=== PATIENT | female | born 1945 | race Caucasian/White ===

== ENCOUNTER 2016-07-31 05:05 | Day surgery (SDC) | payer OTHER ==
[2016-07-29 12:05] VITALS: BMI 24.0
[2016-07-31] MEDS ORDERED: DEXAMETHASONE SOD PHOSPHATE 4 MG/1 ML VIAL ONE (07:52)
[2016-07-31] MEDS ORDERED: MIDAZOLAM HCL 2 MG/2 ML SINGLE DOSE VIAL ONE (07:53)
[2016-07-31] MEDS ORDERED: PROPOFOL 20 ML ONE (07:53)
[2016-07-31] MEDS ORDERED: ACETAMINOPHEN 325 MG TABLET (FP) PO PRN (08:12)
[2016-07-31] MEDS ORDERED: ONDANSETRON 4 MG/2 ML VIAL IVPUSH PRN (08:12)
[2016-07-31] MEDS ORDERED: LACTATED RINGERS SOLUTION 1,000 ML IV SCH (08:15)
--- NOTE | 2016-07-31 08:17 | HP ---
History & Physical Update - History History: No Change - Physical Physical: No Change - Assessment Assessment: No Change - Plan Plan: No Change
[2016-07-31] MEDS ORDERED: IBUPROFEN 800 MG/8 ML IJ IVPB PRN (08:21)
[2016-07-31] MEDS ORDERED: CLINDAMYCIN PHOSPHATE 600 MG/4 ML VIAL ONE (08:30)
[2016-07-31] MEDS ORDERED: DEXTROSE 5%-0.45% SALINE 1,000 ML IV SCH (08:30)
[2016-07-31] MEDS ORDERED: CLINDAMYCIN 600 MG PREMIX BAG IVPB ONE (08:31)
[2016-07-31 10:19] VITALS: TEMP 97.7
[2016-07-31 12:29] VITALS: BP 152/78; PULSE 75
--- NOTE | 2016-09-24 13:59 | OP ---
DATE OF OPERATION: 07/31/2016 PREOPERATIVE DIAGNOSIS: Right hydronephrosis. POSTOPERATIVE DIAGNOSIS: Right hydronephrosis. PROCEDURE: Cystoscopy, right retrograde pyelogram, right ureteral stent placement. ANESTHESIA: General. SURGEON: Isaak Mead MD FINDINGS: Right hydronephrosis. ESTIMATED BLOOD LOSS: Minimal. DRAINS: A 6 x 24 double-J ureteral stent. PREOPERATIVE INDICATIONS: The patient is 71-year-old woman who has a history of lupus with large retroperitoneal adenopathy. She has resultant right hydronephrosis. She comes to the OR today for stent placement. DESCRIPTION OF PROCEDURE: The patient is brought to the OR, placed on the table in supine position, given general anesthesia and placed in the modified lithotomy position. The groin was prepped and draped sterilely. Timeout was performed. Cystoscopy was performed. The urethra was normal. The bladder appeared to be unremarkable. The right ureteral orifice was visualized. A wire was passed up into the right kidney, over that an open-ended catheter. Retrograde pyelogram was performed which did reveal right-sided hydronephrosis. A 6 x 22 double-J ureteral stent was placed, with 1 loop seen in the kidney and 1 loop left in the bladder. The bladder was emptied. The patient was woken up. ISAAK MEAD M.D. [id number]
== END 2016-07-31 12:32 | disposition home or self-care (01) ==
LOC: JASU-SURG 05:05
PROVIDERS: ATTEND Urology
PROC: 0T768DZ Dilation of Right Ureter with Intraluminal Device, Via Natural or Artificial Opening Endoscopic (ICD-10-PCS; principal; 2016-07-31 08:00)
PROC: BT1DYZZ Fluoroscopy of Right Kidney, Ureter and Bladder using Other Contrast (ICD-10-PCS; 2016-07-31 08:00)
DX: N13.30 Unspecified hydronephrosis (principal); M32.14 Glomerular disease in systemic lupus erythematosus; R59.0 Localized enlarged lymph nodes
CPT/HCPCS: 76000-TC; 94760

== ENCOUNTER 2016-09-07 14:32 | Emergency (ER) | payer OTHER ==
[2016-09-07 14:39] VITALS: BMI 23.0
--- NOTE | 2016-09-07 15:15 | PDOC ---
History of Present Illness - General History Source: Patient, Old Records Exam Limitations: No Limitations - History of Present Illness Initial Comments: 09/07/16 14:48 The patient is a 71-year-old woman, with a significant past medical history of lupus, hypertension, hypercholesterolemia, coronary artery disease status post cardiac catherization, deep venous thrombosis, gastroesophageal reflux disease and steroid induced diabetes mellitus who presents to the emergency department via EMS for further evaluation of hematuria. Patient states she has a renal stent placed over her right kidney on July of this year. She states that since the procedure, she has been experiencing intermittent sharp pains at the surgical site. She admits that Dr. Mead wanted to start her on Percocet , but she refused. She saw her PMD, Dr. Sanchez last week, for which she left a urine sample. She received a call [address] Sanchez, stating that she had blood in her urine, although she never complained of hematuria. The next day , her pain worsened, as she started to experience right lower back pain, radiating to her suprapubic region. She states that she had noted blood in the toilet. No clots. She reports associated symptoms of urinary urgency, but otherwise denies dysuria, foul smelling urine, urinary hesitancy/frequency, fevers, cough, chills, shortness of breath, chest pain, lightheadedness, dizziness, nausea, vomiting, diarrhea. Allergies: Codeine. Penicillin. Past Surgical History: Right below the knee amputation (1996). Left leg stent placement (October 2010). Kidney stent placement (July 2016) Social History: No tobacco EtOH and recreational drug use. Primary Care Physician: Dr. Addison Sanchez [phone] Urologist: Dr. Isaak Mead [phone] Oncologist/Renal Medicine Specialist: Dr. Kayleen Carmichael [phone] <Bella Rodriguez - Last Filed: 09/07/16 16:40> <David Lira - Last Filed: 09/09/16 07:45> - General Chief Complaint: Hematuria Stated Complaint: BLEEDING FROM STINT/PAIN Time Seen by Provider: 09/07/16 14:48 Past History <Bella Rodriguez - Last Filed: 09/07/16 16:40> - Past Medical History Anemia: Yes (chronic) Asthma: No Cancer: No Cardiac Disorders: Yes (chest paiN, cardiac cath done) CVA: No COPD: No CHF: No DVT: Yes (by history) Dementia: No Diabetes: No Dialysis: No GI Disorders: Yes (GERD) Disorders: No HTN: Yes Hypercholesterolemia: Yes Kidney Stones: Yes Liver Disease: No Psychiatric Problems: No Seizures: No Thyroid Disease: No Other medical history: LUPUS. - Surgical History Abdominal Surgery: Yes (10/2015 mass removed-negative) Appendectomy: No Cardiac Surgery: Yes (STENTS OCTOBER 2010 IN LEFT LEG) Cholecystectomy: No Lung Surgery: No Neurologic Surgery: No Orthopedic Surgery: Yes ([place] BUENROSTRO (1996)) - Psycho/Social/Smoking Cessation Hx Anxiety: No Suicidal Ideation: No Smoking Status: No Smoking History: Former smoker Have you smoked in the past 12 months: No Number of Cigarettes Smoked Daily: 0 If you are a former smoker, when did you quit?: 1979 Information on smoking cessation initiated: No Hx Alcohol Use: No Drug/Substance Use Hx: No Substance Use Type: None Hx Substance Use Treatment: No <David Lira - Last Filed: 09/09/16 07:45> - Past Medical History Allergies/Adverse Reactions: Allergies Allergy/AdvReac Type Severity Reaction Status Date / Time codeine [Codeine] Allergy Hives Verified 09/07/16 14:36 Penicillins Allergy Hives Verified 09/07/16 14:36 lactose AdvReac Verified 09/07/16 14:36 Home Medications: Ambulatory Orders Gabapentin [Neurontin -] 600 mg PO TID 10/20/15 Hydroxychloroquine Sulfate [Plaquenil] 200 mg PO DAILY 10/20/15 Nifedipine [Procardia Xl] 60 mg PO BID 10/20/15 Prednisone [Deltasone -] 5 mg PO ASDIR 10/20/15 Famotidine [Pepcid] 20 mg PO DAILY 10/31/15 Labetalol HCl [Normodyne -] 200 mg PO BID 10/31/15 Acetaminophen [Tylenol .Extra-Strength -] 1,000 mg PO Q6H PRN 11/20/15 Ca/D3/Mag#11/Zinc/[employer]/[place]/Bor [Caltrate 600+D Plus Tablet] 1 each PO DAILY Iron,Carbonyl [Feosol] 65 mg PO DAILY 11/20/15 Vitamin B Complex [B Complex # 1] 1 each PO DAILY 11/20/15 Levofloxacin [Levaquin -] 500 mg PO DAILY #7 tablet 09/07/16 Review of Systems - Review of Systems Comments:: 09/07/16 14:48 CONSTITUTIONAL: No reported: Fever, Chills, Diaphoresis, Generalized Weakness, Malaise, Loss of Appetite HEENT: No reported: Rhinorrhea, Nasal Congestion, Throat Pain, Throat Swelling, Difficulty Swallowing, Mouth Swelling, Ear Pain, Eye Pain, Visual Changes CARDIOVASCULAR: No reported: Chest Pain, Syncope, Palpitations, Irregular Heart Rate, Lightheadedness, Peripheral Edema RESPIRATORY: No reported: Cough, Shortness of Breath, SOB with Exertion, Orthopnea, Wheezing , Stridor, Hemoptysis GASTROINTESTINAL: Reported: Abdominal Pain. No reported: Abdominal Distension, Nausea, Vomiting, Diarrhea, Constipation, Melena, Hematochezia GENITOURINARY: Reported: Urinary Urgency. Hematuria. No reported: Dysuria, Frequency, Hesitancy , Flank Pain, Genital Pain MUSCULOSKELETAL: Reported: Lower Back Pain. No reported: Myalgia, Arthralgia, Joint Swelling, Neck Pain SKIN: No reported: Rash, Itching, Pallor HEMEATOLOGIC/IMMUNOLOGIC: No reported: Easy Bleeding, Easy Bruising, Lymphadenopathy, Frequent infections ENDOCRINE: No reported: Unexplained Weight Gain, Unexplained Weight Loss, Heat Intolerance , Cold Intolerance NEUROLOGIC: No reported: Headache, Focal Weakness, Paresthesias, Vertigo, Lightheadedness, Unsteady Gait, Seizure, Mental Status Changes, Incontinence PSYCHIATRIC: No reported: Anxiety, Depression <Bella Rodriguez - Last Filed: 09/07/16 16:40> *Physical Exam - Vital Signs Last Vital Signs Temp Pulse Resp BP Pulse Ox 99.5 F 78 18 118/94 99 09/07/16 14:35 09/07/16 14:35 09/07/16 14:35 09/07/16 14:35 09/07/16 14:35 - Physical Exam Comments: 09/07/16 14:48 GENERAL: The patient is awake, alert, and fully oriented, Nontoxic - in no acute distress. HEAD: Normocephalic, atraumatic. EYES: extraocular movements intact, sclera anicteric, conjunctiva clear. ENT: Normal voice, Moist mucous membranes. NECK: Normal range of motion, supple LUNGS: Breath sounds equal, clear to auscultation bilaterally. No wheezes, no rhonchi, no rales. HEART: Regular rate and rhythm, without murmur, rub or gallop. ABDOMEN: Soft,mild suprapubic tenderness to palpation. normoactive bowel sounds. No guarding, no rebound. No CVA tenderness EXTREMITIES: Right BKA. No edema. NEUROLOGICAL: No facial assymetry, Normal speech, PSYCH: Normal mood, normal affect. SKIN: Warm, Dry, normal turgor <Bella Rodriguez - Last Filed: 09/07/16 16:40> - Vital Signs Last Vital Signs Temp Pulse Resp BP Pulse Ox 99.5 F 78 18 118/94 99 09/07/16 14:35 09/07/16 14:35 09/07/16 14:35 09/07/16 14:35 09/07/16 14:35 <David Lira - Last Filed: 09/09/16 07:45> ED Treatment Course - LABORATORY CBC & Chemistry Diagram: 09/07/16 15:32 09/07/16 14:40 - ADDITIONAL ORDERS Additional order review: Laboratory Results 09/07/16 14:40 Sodium 141 Potassium 3.6 Chloride 105 Carbon Dioxide 26 Anion Gap 10 BUN 11 D Creatinine 1.2 H Creat Clearance w eGFR 44.41 Random Glucose 87 D Calcium 9.1 Total Bilirubin 0.5 D AST 31 D ALT 32 D Alkaline Phosphatase 86 Total Protein 7.5 Albumin 3.5 09/07/16 15:32 RBC 3.93 MCV 89.5 MCHC 33.0 RDW 15.6 MPV 8.5 Neutrophils % 40.7 L D Lymphocytes % 44.2 H D Monocytes % 10.2 Eosinophils % 4.1 D Basophils % 0.8 <Bella Rodriguez - Last Filed: 09/07/16 16:40> - LABORATORY CBC & Chemistry Diagram: 09/07/16 15:32 09/07/16 14:40 - RADIOLOGY Radiology Studies Ordered: Category Date Time Status KIDNEY / RENAL US [US] Stat Ultrasound 09/07/16 15:15 Ordered <David Lira - Last Filed: 09/09/16 07:45> Medical Decision Making - Medical Decision Making 09/07/16 15:17 71y F hxof lupus on steroids, kidney stones s/p stenting by dr. adan, dvt (not currently on a/c), htn, presents with onset of R flank pain radiating to anterior abdomen along with urgency. no associated fever/chills, n/v, cp, sob , dysuria. on exam pt apppears well but does have some lower abdominal tenderness. consider obstructed /displcaed stent, uti, appendicits will obtain ua to r/o infection will obtain basic labs will obtain renal US to r/o hydronephrosis if persistent pain consider Ct A portion of this note was documented by scribe services under my direction. I have reviewed the details of the note, within reason, and agree with the documentation with the following case summary and management plan written by me 09/07/16 16:53 pts labs reviewed no anemia noted cr noted 1.2, but seems approx bsaeline awaiting UA and US results will sign th ept out to dr. osman to fu with results <David Lira - Last Filed: 09/09/16 07:45> *DC/Admit/Observation/Transfer - Attestations Scribe Attestion: 09/07/16 14:48 Documentation prepared by Bella Rodriguez, acting as hospital medical assistant for David Lira MD. <Bella Rodriguez - Last Filed: 09/07/16 16:40> <David Lira - Last Filed: 09/09/16 07:45> Diagnosis at time of Disposition: Urinary tract infection, Hematuria - Discharge Dispostion Disposition: HOME Condition at time of disposition: Stable - Prescriptions Prescriptions: Levofloxacin [Levaquin -] 500 mg PO DAILY #7 tablet - Referrals Referrals: Addison Sanchez MD [Primary Care Provider] - - Patient Instructions Printed Discharge Instructions: DI for Urinary Tract Infection (UTI), DI for Hematuria
[2016-09-07 15:54] LABS: BASOPHIL 0.8 % (0-2.0); EOSINOPHIL 4.1 % (0-4.5); MCH 29.5 pg (25.7-33.7); MEAN CELL VOLUME 89.5 fl (80-96); MEAN PLT VOLUME 8.5 fl (7.5-11.1); NEUTROPHILS 40.7 % (42.8-82.8); PLATELET COUNT 199 K/MM3 (134-434); RDW 15.6 % (11.6-15.6); WHITE BLOOD COUNT 8.7 K/mm3 (4.0-10.0)
[2016-09-07 16:09] LABS: INR 1.12 (0.82-1.09); PROTHROMBIN TIME (PATIENT) 12.3 SEC (9.98-11.88)
[2016-09-07 16:19] LABS: ALBUMIN 3.5 g/dl (3.4-5.0); BILIRUBIN,TOTAL 0.5 mg/dL (0.2-1.0); CALCIUM 9.1 mg/dL (8.5-10.1); COCKROFT - GAULT 36.856; CREATININE 1.2 mg/dL (0.55-1.02); TOT PROT 7.5 g/dl (6.4-8.2)
[2016-09-07 17:21] LABS: URINE APPEARANCE CLOUDY; URINE BILIRUBIN NEGATIVE (NEGATIVE); URINE COLOR RED; URINE GLUCOSE (UA) NEGATIVE (NEGATIVE); URINE KETONE NEGATIVE (NEGATIVE); URINE NITRITE NEGATIVE (NEGATIVE); URINE UROBILINOGEN NEGATIVE E.U./dl (0.2-1.0)
[2016-09-07 17:22] LABS: URINE BLOOD 3+ (NEGATIVE); URINE LEUK ESTERASE 1+ (NEGATIVE); URINE PROTEIN 2+ (NEGATIVE)
[2016-09-07 17:25] LABS: URINE MUCUS MODERATE; URINE RBC 6069 /hpf (0-3); URINE WBC 531 /hpf (3-5)
[2016-09-07 18:52] VITALS: BP 130/86; PULSE 79; TEMP 99
[2016-09-07] MEDS ORDERED: LEVOFLOXACIN 500 MG IVPB 100 ML IVPB ONE ×2 (18:57→19:01)
[2016-09-07 19:32] LABS: PLATELET ESTIMATE ADEQUATE (NORMAL)
--- NOTE | 2016-09-07 20:59 | PDOC ---
*Physical Exam - Vital Signs Last Vital Signs Temp Pulse Resp BP Pulse Ox 99 F 79 16 130/86 100 09/07/16 18:51 09/07/16 18:51 09/07/16 18:51 09/07/16 18:51 09/07/16 18:51 - Physical Exam Comments: 09/07/16 20:55 Patient endorsed to me by Dr. Lira. Patient is 71-year-old female with history of lupus and nephrolithiasis who underwent ureteral stenting in July 2016 for nephrolithiasis and right hydronephrosis who presented with suprapubic pressure radiating to the back and gross hematuria. In the ER, patient is awake and alert , well-appearing, afebrile, with normal and stable vital signs. CBC reveals no evidence of leukocytosis. CMP reveals unchanged renal function. Urinalysis reveals more than 6000 RBCs per high-power field and more than 500 WBCs. Patient is also leukocyte esterase positive. Urine cultures been obtained. Renal ultrasound reveals no evidence of right sided hydronephrosis. KUB reveals intact ureteral stent. I discussed the case with Dr. Mcguire of urology. He agrees with plan of discharge with outpatient [facility] with prompt follow-up and 72-96 hours with urology. I explained the plan of care with the patient and she expressed understanding. ED Treatment Course - LABORATORY CBC & Chemistry Diagram: 09/07/16 15:32 09/07/16 14:40 - ADDITIONAL ORDERS Additional order review: Laboratory Results 09/07/16 09/07/16 09/07/16 17:10 14:40 14:40 INR 1.12 Sodium 141 Potassium 3.6 Chloride 105 Carbon Dioxide 26 Anion Gap 10 BUN 11 D Creatinine 1.2 H Creat Clearance w eGFR 44.41 Random Glucose 87 D Calcium 9.1 Total Bilirubin 0.5 D AST 31 D ALT 32 D Alkaline Phosphatase 86 Total Protein 7.5 Albumin 3.5 Urine Color Red Urine Appearance Cloudy Urine pH 6.0 Urine Protein 2+ H Urine Glucose (UA) Negative Urine Ketones Negative Urine Blood 3+ H Urine Nitrite Negative Urine Bilirubin Negative Urine Urobilinogen Negative Ur Leukocyte Esterase 1+ H Urine RBC 6069 Urine WBC 531 Urine Mucus Moderate 09/07/16 15:32 RBC 3.93 MCV 89.5 MCHC 33.0 RDW 15.6 MPV 8.5 Neutrophils % 40.7 L D Lymphocytes % 44.2 H D Monocytes % 10.2 Eosinophils % 4.1 D Basophils % 0.8 - Medications Given in the ED: ED Medications Discontinued Medications Generic Name Dose Route Start Last Admin Trade Name Rigo PRN Reason Stop Dose Admin Levofloxacin 100 mls @ 100 mls/hr 09/07/16 18:57 09/07/16 19:03 Levaquin 500 Mg Premixed Ivpb - IVPB 09/07/16 19:56 100 mls/hr ONCE ONE Administration *DC/Admit/Observation/Transfer Diagnosis at time of Disposition: Hematuria Urinary tract infection Qualifiers: Urinary tract infection type: acute cystitis Hematuria presence: with hematuria Qualified Code(s): N30.01 - Acute cystitis with hematuria - Discharge Dispostion Disposition: HOME Condition at time of disposition: Stable - Referrals Referrals: Addison Sanchez MD [Primary Care Provider] - - Patient Instructions Printed Discharge Instructions: DI for Urinary Tract Infection (UTI), DI for Hematuria - Post Discharge Activity
== END 2016-09-07 21:36 | disposition home or self-care (01) ==
LOC: JER 14:32 → SUPCPDRO 14:32 → JER 21:36
DX: N30.01 Acute cystitis with hematuria (principal); Z87.442 Personal history of urinary calculi; I25.10 Atherosclerotic heart disease of native coronary artery without angina pectoris; Z98.61 Coronary angioplasty status; I10 Essential (primary) hypertension; E78.00 Pure hypercholesterolemia, unspecified; K21.9 Gastro-esophageal reflux disease without esophagitis; E09.9 Drug or chemical induced diabetes mellitus without complications; T38.0X5A Adverse effect of glucocorticoids and synthetic analogues, initial encounter; Z89.511 Acquired absence of right leg below knee
CPT/HCPCS: 36415; 74000-TC; 76775-TC; 80053; 81003; 81015; 85025; 85610; 87086; 96365; 99283-25

== ENCOUNTER 2016-12-11 06:08 | Day surgery (SDC) | payer OTHER ==
[2016-11-25 10:22] VITALS: BMI 23.0
[2016-12-11] MEDS ORDERED: IBUPROFEN 800 MG/8 ML IJ IVPB PRN (11:31)
[2016-12-11] MEDS ORDERED: ACETAMINOPHEN 1000 MG/100 ML VIAL (NON FORMULARY) IVPB ONE (11:32)
--- NOTE | 2016-12-11 11:37 | HP ---
History & Physical Update - History History: No Change - Physical Physical: No Change - Assessment Assessment: No Change - Plan Plan: No Change
[2016-12-11] MEDS ORDERED: PROPOFOL 20 ML ONE (11:42)
[2016-12-11] MEDS ORDERED: LIDOCAINE HCL/PF 2% SDV 5ML VIAL ONE (11:42)
[2016-12-11] MEDS ORDERED: DEXTROSE 5%-0.45% SALINE 1,000 ML IV SCH (11:45)
[2016-12-11] MEDS ORDERED: CLINDAMYCIN 600 MG PREMIX BAG IVPB ONE (11:51)
--- NOTE | 2016-12-11 12:13 | OP ---
Operative Note - Note: Operative Date: 12/11/16 Pre-Operative Diagnosis: right hydronephrosis Operation: right ureteral stent exchange, retrograde pyelogram Post-Operative Diagnosis: Same as Pre-op Surgeon: Isaak Mead Anesthesiologist/BACKUP ADMINISTRATIVE COORDINATOR: Ridge Quiles Anesthesia: General Specimens Removed: stent
[2016-12-11] MEDS ORDERED: ONDANSETRON 4 MG/2 ML VIAL IVPUSH PRN (12:20)
[2016-12-11] MEDS ORDERED: PROMETHAZINE HCL 25 MG/1 ML VIAL IVPUSH PRN (12:20)
[2016-12-11] MEDS ORDERED: oxyCODONE HCL 5 MG TABLET PO PRN (12:20)
[2016-12-11 14:48] VITALS: BP 146/55; PULSE 63; TEMP 97.6
--- NOTE | 2016-12-12 08:27 | OP ---
DATE OF OPERATION: 12/11/2016 PREOPERATIVE DIAGNOSIS: Obstructive right kidney hydronephrosis. POSTOPERATIVE DIAGNOSIS: Obstructive right kidney hydronephrosis. PROCEDURE: Cystoscopy and exchange of right ureteral stent, retrograde pyelogram. ANESTHESIA: General, Ridge Quiles MD. ESTIMATED BLOOD LOSS: Minimal. SPECIMEN: Old stents. 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 She has been managed with a ureteral stent for the last 3 months, which has given her relief. Because she is going to need lifelong stenting, stent is going to be exchanged for a metal stent which has a 1-year lifespan. DESCRIPTION OF OPERATION: The patient was brought to the OR, placed on the table in the supine position, given general anesthesia and IV antibiotics, and placed in the modified lithotomy position. The groin was prepped and draped sterilely. Timeout was performed. Cystoscopy was performed. The urethra appeared to be normal. The bladder itself was unremarkable except for a right ureteral stent. This was grasped with forceps, pulled out of the urethra, and a guidewire was passed up the stent into the right kidney under fluoroscopic guidance. The stent was then removed. The wire was refed into the cystoscope. A metal stent was then placed. A catheter was placed over the indwelling wire up to the renal pelvis. The wire was removed, and a retrograde pyelogram was performed which confirmed the position and the dilation of the renal pelvis. Through this catheter, a 6 x 24 double-J metal stent was placed, 1 loop in the mid-pole calyx and 1 loop in the bladder. The scope was removed. The bladder was emptied. Fluoroscopy was performed to confirm placement. Patient was woken up. Dhiraj [id number]
--- NOTE | 2016-12-12 14:25 | PATH ---
Surgical Pathology Report Patient Name: OLEG PERERA [facility]. Rec. #: [id number] /Age/Gender: 1945 (Age: 71) / F Account: [id number] Location: [facility] Taken: 12/11/2016 Received: 12/11/2016 Reported: 12/12/2016 Physicians: Isaak Mead M.D. Specimen(s) Received OLD STENT Clinical History Hydronephrosis Final Diagnosis OLD STENT, RIGHT URETER, REPLACEMENT: STENT (GROSS EXAM). Electronically Signed Rafita Calixto M.D. Gross Description Received fresh labeled "old stent" is a 36 cm in length blue-green, coiled portion of tubing, consistent with a ureteral stent. No soft tissue is present. No sections are submitted, gross only. /12/11/2016 [facility]
== END 2016-12-11 15:06 | disposition home or self-care (01) ==
LOC: JASU-SURG 06:08
PROVIDERS: ATTEND Urology
PROC: 0T768DZ Dilation of Right Ureter with Intraluminal Device, Via Natural or Artificial Opening Endoscopic (ICD-10-PCS; principal; 2016-12-11 11:00)
DX: N13.2 Hydronephrosis with renal and ureteral calculous obstruction (principal)
CPT/HCPCS: 76000-TC; 88300-TC; 94760

== ENCOUNTER 2017-04-11 10:31 | Inpatient (IN) | payer OTHER ==
--- NOTE | 2017-04-11 11:05 | PDOC ---
History of Present Illness - General History Source: Patient Exam Limitations: No Limitations - History of Present Illness Initial Comments: 04/11/17 12:04 The patient is a 71 year old female with a significant PMH of Lupus (on plaquinil and 5mg prednisone), HTN, HLD, CAD, s/p cardiac cath, DVT, GERD, steroid induced diabetes, hx of obstructive uropathy sp ureteral stent, who presents to the emergency department with right lower quadrant pain radiating to the right lower back for the past week and chills for the past three days. The patient states the abdominal and back pain is different from her baseline. The patient reports taking two tylenols this morning for a temperature TMax 103 yesterday. The patient notes some nausea but no vomiting secondary to her RLQ pain. The patient is also complaining of foul smelling urine for the past several days and burning sensation when urinating this morning. The patient denies chest pain, shortness of breath, cough, headache and dizziness. Denies fever, chills, nausea, vomit, diarrhea and constipation. The patient was last seen at our facility for hematuria secondary to right kidney stent placement which has resolved after a stent replacement in November. Allergies: codeine, penicillins, lactose Past surgical history: Right below the knee replacement (1996), left leg stent placement (October 2010), right kidney stent replaced (November 2016) Social history: No reported alcohol, cigarette, or drug use. PCP: Dr. Marcial Urologist: Dr. Mead <Arlen Hernandez - Last Filed: 04/11/17 16:16> <David Lira - Last Filed: 04/11/17 16:31> - General Chief Complaint: Weakness Stated Complaint: FEVER Time Seen by Provider: 04/11/17 10:54 Past History <Arlen Hernandez - Last Filed: 04/11/17 16:16> - Past Medical History Anemia: Yes (chronic) Asthma: No Cancer: No Cardiac Disorders: Yes (Leg stents) CVA: No COPD: No CHF: No DVT: Yes (by history) Dementia: No Diabetes: No Dialysis: No GI Disorders: Yes (GERD) Disorders: No HTN: Yes Hypercholesterolemia: Yes Kidney Stones: Yes Liver Disease: No Psychiatric Problems: No Seizures: No Thyroid Disease: No Other medical history: LUPUS,Neuropathy, Kidney stents - Surgical History Abdominal Surgery: Yes (10/2015 mass removed-negative) Appendectomy: No Cardiac Surgery: Yes (STENTS OCTOBER 2010 IN LEFT LEG) Cholecystectomy: No Lung Surgery: No Neurologic Surgery: No Orthopedic Surgery: Yes ([place] BUENROSTRO (1996)) - Suicide/Smoking/Psychosocial Hx Smoking Status: No Smoking History: Never smoked Have you smoked in the past 12 months: No Number of Cigarettes Smoked Daily: 0 If you are a former smoker, when did you quit?: 1979 Information on smoking cessation initiated: No Hx Alcohol Use: No Drug/Substance Use Hx: No Substance Use Type: None Hx Substance Use Treatment: No <David Lira - Last Filed: 04/11/17 16:31> - Past Medical History Allergies/Adverse Reactions: Allergies Allergy/AdvReac Type Severity Reaction Status Date / Time codeine [Codeine] Allergy Hives Verified 04/11/17 10:45 Penicillins Allergy Hives Verified 04/11/17 10:45 lactose AdvReac Verified 04/11/17 10:45 Home Medications: Ambulatory Orders Gabapentin [Neurontin -] 600 mg PO TID 10/20/15 Hydroxychloroquine Sulfate [Plaquenil] 200 mg PO DAILY 10/20/15 Nifedipine [Procardia Xl] 60 mg PO DAILY 10/20/15 Prednisone [Deltasone -] 5 mg PO ASDIR 10/20/15 Labetalol HCl [Normodyne -] 200 mg PO BID 10/31/15 Acetaminophen [Tylenol .Extra-Strength -] 1,000 mg PO Q6H PRN 11/20/15 Ca/D3/Mag#11/Zinc/Baking Assistant/[place]/Bor [Caltrate 600+D Plus Tablet] 1 each PO DAILY Iron,Carbonyl [Feosol] 65 mg PO DAILY 11/20/15 Vitamin B Complex [B Complex # 1] 1 each PO DAILY 11/20/15 Review of Systems - Review of Systems Able to Perform ROS?: Yes Comments:: 04/11/17 12:06 Constitutional:(+) Chills. (+) Fever. No reported:weakness, unexplained weight loss HEENT: No reported: vision changes, congestion, sore throat Respiratory: No reported: cough, sob, hemoptysis Cardiac: No reported: chest pain, palpitations, lightheadedness, leg swelling Abd/GI: (+) RLQ pain (+) Nausea. (+) Dysuria with foul odor. No reported: vomiting, blood per rectum, melena, diarrhea : No reported: frequency, discharge Musculoskeletal: (+) Right lower back pain. No reported: neck pain, joint swelling Skin: No reported: bruising, erythema, rash Neurological: No reported: headache, numbness, focal weakness, tingling, ataxia , weakness Hematologic: No reported anemia, easy bruising, easy bleeding <Arlen Hernandez - Last Filed: 04/11/17 16:16> *Physical Exam - Vital Signs Last Vital Signs Temp Pulse Resp BP Pulse Ox 101.9 F H 89 18 152/76 98 04/11/17 11:04 04/11/17 10:41 04/11/17 10:41 04/11/17 10:41 04/11/17 10:41 <Arlen Hernandez - Last Filed: 04/11/17 16:16> - Vital Signs Last Vital Signs Temp Pulse Resp BP Pulse Ox 101.9 F H 89 18 152/76 98 04/11/17 11:04 04/11/17 10:41 04/11/17 10:41 04/11/17 10:41 04/11/17 10:41 - Physical Exam Comments: 04/11/17 11:21 GENERAL: The patient is awake, alert, and fully oriented, Nontoxic - in no acute distress. HEAD: Normocephalic, atraumatic. EYES: extraocular movements intact, sclera anicteric, conjunctiva clear. ENT: Normal voice, Moist mucous membranes. NECK: Normal range of motion, supple LUNGS: Breath sounds equal, clear to auscultation bilaterally. No wheezes, no rhonchi, no rales. HEART: Regular rate and rhythm, normal S1 and S2 without murmur, rub or gallop. ABDOMEN: mild RLQ tenderness, soft, No guarding, no rebound. No CVA tenderness EXTREMITIES: Normal range of motion, no edema. s/p BKA RLE NEUROLOGICAL: No facial assymetry, Normal speech, PSYCH: Normal mood, normal affect. SKIN: Warm, Dry, normal turgor, <Soraya,David - Last Filed: 04/11/17 16:31> Heart Score/ECG Review - ECG Impressions Comment:: 04/11/17 16:30 Twelve-lead EKG was performed and reviewed by me. There is normal sinus rhythm with a normal rate. Rate of [address] changes suggestive of acute ischemia Artifacts present <David Lira - Last Filed: 04/11/17 16:31> ED Treatment Course - LABORATORY CBC & Chemistry Diagram: 04/11/17 11:47 04/11/17 11:47 <Arlen Hernandez - Last Filed: 04/11/17 16:16> - LABORATORY CBC & Chemistry Diagram: 04/11/17 11:47 04/11/17 11:47 <David Lira - Last Filed: 04/11/17 16:31> Medical Decision Making - Medical Decision Making 04/11/17 11:21 71y F hx of dvt, cad, lupus on 5mg prednisone, obstructive uropathy s/p uretral stents, htn, hl, presents with complaint of fever/chills x several days asociate dwith RLQ pain radiating to R flank associated wit nausea, +foul smelling urine. tmax 103 at home. on exam pt appears well in no distress no cva tenderness w/ ,minimal r sided abd tenderness noted to be febrile here to 101 but vitals otherwise differential inclues uti/pyelo, appendicits sepsis orderset initiated will ck ua, ucx will give tylneol at 12 (last dose was at 8am) 04/11/17 15:13 labs reviewed noted for leukocytosis UA c/w UTI with significant wbcs will treat with levaquin (allergy to pcn) consider admission for uro sepsis and as pt is otherwise immunocompromised 04/11/17 15:19 case nadia marcial agree with admission for treatment of urosepsis due to being immunoscompromised 04/11/17 16:02 case nadia you <David Lira - Last Filed: 04/11/17 16:31> *DC/Admit/Observation/Transfer - Attestations Scribe Attestion: 04/11/17 12:06 Documentation prepared by Arlen Hernandez, acting as resident medical officer for David Lira MD. <Arlen Hernandez - Last Filed: 04/11/17 16:16> - Discharge Dispostion Admit: Yes <David Lira - Last Filed: 04/11/17 16:31> Diagnosis at time of Disposition: Urinary tract infection Qualifiers: Urinary tract infection type: site unspecified Hematuria presence: with hematuria Qualified Code(s): N39.0 - Urinary tract infection, site not specified Sepsis Qualifiers: Sepsis type: sepsis due to unspecified organism Qualified Code(s): A41.9 - Sepsis, unspecified organism Acute on chronic renal failure Qualifiers: Acute renal failure type: unspecified Chronic kidney disease stage: unspecified stage Qualified Code(s): N17.9 - Acute kidney failure, unspecified - Discharge Dispostion Condition at time of disposition: Stable - Referrals Referrals: Addison Marcial MD [Primary Care Provider] - - Patient Instructions - Post Discharge Activity
[2017-04-11] MEDS ORDERED: SODIUM CHLORIDE 1,000 ML IV ONE (11:27)
[2017-04-11 12:06] LABS: BASOPHIL 0.5 % (0-2.0); EOSINOPHIL 0.6 % (0-4.5); MCH 28.9 pg (25.7-33.7); MCHC 31.6 g/dl (32.0-36.0); MEAN CELL VOLUME 91.4 fl (80-96); MEAN PLT VOLUME 8.7 fl (7.5-11.1); NEUTROPHILS 73.4 % (42.8-82.8); PLATELET COUNT 328 K/MM3 (134-434); RDW 14.5 % (11.6-15.6); WHITE BLOOD COUNT 15.9 K/mm3 (4.0-10.0)
[2017-04-11 12:10] LABS: URINE APPEARANCE CLOUDY; URINE BILIRUBIN NEGATIVE (NEGATIVE); URINE BLOOD 2+ (NEGATIVE); URINE COLOR DKYELLOW; URINE GLUCOSE (UA) NEGATIVE (NEGATIVE); URINE KETONE NEGATIVE (NEGATIVE); URINE NITRITE NEGATIVE (NEGATIVE); URINE UROBILINOGEN NEGATIVE mg/dL (0.2-1.0)
[2017-04-11 12:11] LABS: VENOUS BLOOD GAS HCO3 27.1 meq/L (19-25); VENOUS PH 7.33 (7.32-7.42)
[2017-04-11 12:20] LABS: INR 1.21 (0.82-1.09); PROTHROMBIN TIME (PATIENT) 13.7 SEC (9.98-11.88)
[2017-04-11 12:23] LABS: ACTIVATED PTT 26.9 SECONDS (26.9-34.4)
[2017-04-11] MEDS ORDERED: morphine CARPU-JECT 2 MG/1 ML DISP.SYRIN IVPUSH ONE (12:31)
[2017-04-11] MEDS ORDERED: morphine SULFATE 4 MG/ML VIAL ONE (12:33)
[2017-04-11 12:37] LABS: ALBUMIN 3.1 g/dl (3.4-5.0); ANION GAP 8 (8-16); BILIRUBIN,TOTAL 0.3 mg/dL (0.2-1.0); CALCIUM 8.6 mg/dL (8.5-10.1); CO2 27 mmol/L (21-32); CREATININE 1.6 mg/dL (0.55-1.02); GLUCOSE,RANDOM 72 mg/dL (74-106); SGOT/AST 16 U/L (15-37); SGPT/ALT 19 U/L (12-78); TOT PROT 7.8 g/dl (6.4-8.2)
[2017-04-11 12:40] LABS: ALK PHOS 92 U/L (45-117); CPK 48 IU/L (26-192); TROPONIN I < 0.02 ng/ml (0.00-0.05)
[2017-04-11 12:52] LABS: URINE LEUK ESTERASE 3+ (NEGATIVE); URINE PROTEIN 2+ (NEGATIVE)
[2017-04-11 13:42] LABS: URINE BACTERIA FEW /hpf (NONE SEEN); URINE HYALINE CAST 3 /lpf; URINE MUCUS FEW; URINE RBC 55 /hpf (0-3); URINE WBC 187 /hpf (3-5); YEAST FEW
[2017-04-11] MEDS ORDERED: LEVOFLOXACIN 750 MG IVPB 750 MG/150 ML BAG IVPB ONE ×2 (15:13→15:20)
[2017-04-11] MEDS ORDERED: METOCLOPRAMIDE HCL INJECTION 10 MG/2 ML VIAL IVPUSH ONE (17:00)
[2017-04-11] MEDS ORDERED: SODIUM CHLORIDE 1,000 ML IV STA ×2 (17:03)
--- NOTE | 2017-04-11 17:15 | HP ---
CHIEF COMPLAINT: R flank pain PCP: PCP: Dr. Sanchez Urologist: Dr. Mead HISTORY OF PRESENT ILLNESS: This is a 71 year old female with a past medial history of Lupus, hypertension, hyperlipidemia, coronary artery disease s/p stents, DVT, GERD, obstructive uropathy s/p renal stent presented to the ED for 7 days of right lower quadrant pain radiating to her mid-back. She rates the pain at a 7/10 in severity. Patient states that for the past 3 days, she felt febrile. She took her temperature at home and found it to be 102 degrees. She states that she took tylenol for the fever at home, but she did not feel better after taking it. Patient states that she felt nauseous for 2 days but only started vomiting when she got to the emergency department. Patient denies chest pain, shortness of breath, diarrhea. ER course was notable for: (1) leukocytosis (15.9) (2) (+) UA for leukocyte esterase, WBCs in urine (3) Renal ultrasound showing R hydronephrosis (4) EKG normal sinus rhythm without QT prolongation PAST MEDICAL HISTORY: Lupus, hypertension, hyperlipidemia, coronary artery disease s/p stents, DVT, GERD, obstructive uropathy s/p renal stent PAST SURGICAL HISTORY: Social History: Smoking: none Alcohol: none Drugs: none Family History: Allergies codeine [Codeine] Allergy (Verified 04/11/17 10:45) Hives Penicillins Allergy (Verified 04/11/17 10:45) Hives lactose Adverse Reaction (Verified 04/11/17 10:45) HOME MEDICATIONS: Home Medications Medication Instructions Recorded Gabapentin [Neurontin -] 600 mg PO TID 10/20/15 Hydroxychloroquine Sulfate 200 mg PO DAILY 10/20/15 [Plaquenil] Nifedipine [Procardia Xl] 60 mg PO DAILY 10/20/15 Prednisone [Deltasone -] 5 mg PO ASDIR 10/20/15 Labetalol HCl [Normodyne -] 200 mg PO BID 10/31/15 Acetaminophen [Tylenol 1,000 mg PO Q6H PRN 11/20/15 .Extra-Strength -] Ca/D3/Mag#11/Zinc/Weld Technician/[place]ust[place]/Bor 1 each PO DAILY 11/20/15 [Caltrate 600+D Plus Tablet] Iron,Carbonyl [Feosol] 65 mg PO DAILY 11/20/15 Vitamin B Complex [B Complex # 1] 1 each PO DAILY 11/20/15 REVIEW OF SYSTEMS CONSTITUTIONAL: fever, chills Absent: diaphoresis, generalized weakness, malaise, loss of appetite, weight change HEENT: Absent: rhinorrhea, nasal congestion, throat pain, throat swelling, difficulty swallowing, mouth swelling, ear pain, eye pain, visual changes CARDIOVASCULAR: Absent: chest pain, syncope, palpitations, irregular heart rate, lightheadedness , peripheral edema RESPIRATORY: Absent: cough, shortness of breath, dyspnea with exertion, orthopnea, wheezing, stridor, hemoptysis GASTROINTESTINAL: abdominal pain, nausea, vomiting, Absent: abdominal distension, diarrhea, constipation, melena, hematochezia GENITOURINARY: dysuria, frequency, flank pain Absent: urgency, hesitancy, hematuria, genital pain MUSCULOSKELETAL: back pain Absent: myalgia, arthralgia, joint swelling, neck pain SKIN: Absent: rash, itching, pallor HEMATOLOGIC/IMMUNOLOGIC: Absent: easy bleeding, easy bruising, lymphadenopathy, frequent infections ENDOCRINE: Absent: unexplained weight gain, unexplained weight loss, heat intolerance, cold intolerance NEUROLOGIC: Absent: headache, focal weakness or paresthesias, dizziness, unsteady gait, seizure, mental status changes, bladder or bowel incontinence PSYCHIATRIC: Absent: anxiety, depression, suicidal or homicidal ideation, hallucinations. PHYSICAL EXAMINATION Vital Signs - 24 hr 04/11/17 04/11/17 04/11/17 10:41 11:04 13:43 Temperature 99.3 F 101.9 F H 99.3 F Pulse Rate 89 Pulse Rate [ 82 Left Radial] Respiratory 18 20 Rate Blood Pressure 152/76 Blood Pressure 135/80 [Left Arm] O2 Sat by Pulse 98 98 Oximetry (%) GENERAL: Awake, alert, and fully oriented, mild distress, patient vomiting during history taking HEAD: Normal with no signs of trauma. EYES: Pupils equal, round and reactive to light, extraocular movements intact, sclera anicteric, conjunctiva clear. No lid lag. EARS, NOSE, THROAT: Ears normal, nares patent, oropharynx clear without exudates. Dry mucus membranes NECK: Normal range of motion, supple without lymphadenopathy, JVD, or masses. LUNGS: Breath sounds equal, clear to auscultation bilaterally. No wheezes, and no crackles. No accessory muscle use. HEART: Regular rate and rhythm, normal S1 and S2 without murmur, rub or gallop. ABDOMEN: Soft, Tender to palpation in the R lower quadrant, not distended, normoactive bowel sounds, no guarding, no rebound, no masses. MUSCULOSKELETAL: Normal range of motion at all joints. No bony deformities or tenderness. CVA tenderness noted on exam UPPER EXTREMITIES: 2+ pulses, warm, well-perfused. No cyanosis. No clubbing. No peripheral edema. LOWER EXTREMITIES: R sided above knee amputation noted NEUROLOGICAL: Cranial nerves II-XII intact. Normal speech. PSYCHIATRIC: Cooperative. Good eye contact. Appropriate mood and affect. SKIN: Warm, dry, normal turgor, no rashes or lesions noted, normal capillary refill. Laboratory Results - last 24 hr 04/11/17 04/11/17 04/11/17 11:47 11:47 11:47 WBC 15.9 H D RBC 3.79 Hgb 11.0 Hct 34.6 MCV 91.4 MCH 28.9 MCHC 31.6 L RDW 14.5 Plt Count 328 D MPV 8.7 Neutrophils % 73.4 D Lymphocytes % 13.7 D Monocytes % 11.8 H Eosinophils % 0.6 D Basophils % 0.5 PT with INR 13.70 H INR 1.21 H PTT (Actin FS) 26.9 VBG pH 7.33 POC VBG pCO2 52.4 H POC VBG pO2 22.1 L Mixed VBG HCO3 27.1 H Sodium Potassium Chloride Carbon Dioxide Anion Gap BUN Creatinine Creat Clearance w eGFR Random Glucose Lactic Acid Calcium Total Bilirubin AST ALT Alkaline Phosphatase Creatine Kinase Troponin I Total Protein Albumin Lipase Urine Color Urine Appearance Urine pH Ur Specific [place] Urine Protein Urine Glucose (UA) Urine Ketones Urine Blood Urine Nitrite Urine Bilirubin Urine Urobilinogen Urine WBC (Auto) Urine RBC (Auto) Ur Epithelial Cells Urine Bacteria Hyaline Casts Urine Mucus Urine Yeast Blood Type Antibody Screen 04/11/17 04/11/17 04/11/17 11:47 11:47 11:48 WBC RBC Hgb Hct MCV MCH MCHC RDW Plt Count MPV Neutrophils % Lymphocytes % Monocytes % Eosinophils % Basophils % PT with INR INR PTT (Actin FS) VBG pH POC VBG pCO2 POC VBG pO2 Mixed VBG HCO3 Sodium 138 Potassium 4.3 Chloride 103 Carbon Dioxide 27 Anion Gap 8 BUN 20 H D Creatinine 1.6 H D Creat Clearance w eGFR 31.87 Random Glucose 72 L D Lactic Acid 1.5 Calcium 8.6 Total Bilirubin 0.3 AST 16 ALT 19 Alkaline Phosphatase 92 Creatine Kinase 48 Troponin I < 0.02 Total Protein 7.8 Albumin 3.1 L Lipase Urine Color Urine Appearance Urine pH Ur Specific [place] Urine Protein Urine Glucose (UA) Urine Ketones Urine Blood Urine Nitrite Urine Bilirubin Urine Urobilinogen Urine WBC (Auto) Urine RBC (Auto) Ur Epithelial Cells Urine Bacteria Hyaline Casts Urine Mucus Urine Yeast Blood Type B POSITIVE Antibody Screen Negative 04/11/17 04/11/17 11:48 12:00 WBC RBC Hgb Hct MCV MCH MCHC RDW Plt Count MPV Neutrophils % Lymphocytes % Monocytes % Eosinophils % Basophils % PT with INR INR PTT (Actin FS) VBG pH POC VBG pCO2 POC VBG pO2 Mixed VBG HCO3 Sodium Potassium Chloride Carbon Dioxide Anion Gap BUN Creatinine Creat Clearance w eGFR Random Glucose Lactic Acid Calcium Total Bilirubin AST ALT Alkaline Phosphatase Creatine Kinase Troponin I Total Protein Albumin Lipase 171 Urine Color Dkyellow Urine Appearance Cloudy Urine pH 6.0 Ur Specific [place] 1.014 Urine Protein 2+ H Urine Glucose (UA) Negative Urine Ketones Negative Urine Blood 2+ H Urine Nitrite Negative Urine Bilirubin Negative Urine Urobilinogen Negative Urine WBC (Auto) 187 Urine RBC (Auto) 55 Ur Epithelial Cells Rare Urine Bacteria Few Hyaline Casts 3 Urine Mucus Few Urine Yeast Few Blood Type Antibody Screen ASSESSMENT/PLAN: 71 year old female with a past medial history of Lupus, hypertension, hyperlipidemia, coronary artery disease s/p stents, DVT, GERD, obstructive uropathy s/p renal stent admitted to the hospital for the treatment of sepsis secondary to urinary tract infection. #Sepsis 2/2 UTI: -recheck lactic acid -levoquin 750 QD, day 1 today -patient received NS bolus in ED, give 2 more L NS bolus -lactic acid normal -UA positive for UTI -Consulted and d/w Dr. Mead, private urologist #Acute Kidney Injury: baseline 1.3-1.4, today 1.6 -likely 2/2 prerenal causes/dehydration -give 2L bolus normal saline -repeat BMP in the AM #Nausea: patient was nauseous and vomiting frequently during the exam -give reglan #Hypertension: -patient normally on nifedipine 60mg QD, labetalol 200 BID -hold antihypertensives today due to sepsis-like picture #Lupus: -continue home hydroxychloroquine and prednisone #FEN -Bolus 2L and put on standing NS @ 125cc/hr -replete electrolytes as necessary -sodium diet #Prophylaxis -heparin 5000subQ BID #Disposition -Admit to med-surg -full code Visit type - Emergency Visit Emergency Visit: Yes ED Registration Date: 04/11/17 Care time: The patient presented to the Emergency Department on the above date and was hospitalized for further evaluation of their emergent condition. - New Patient This patient is new to me today: Yes Date on this admission: 04/11/17 - Critical Care Critical Care patient: No
[2017-04-11] MEDS ORDERED: METOCLOPRAMIDE HCL INJECTION 10 MG/2 ML VIAL ONE (17:21)
[2017-04-11 17:35] LABS: URINE LEUK ESTERASE 3+ (NEGATIVE)
--- NOTE | 2017-04-11 17:49 | HP ---
CHIEF COMPLAINT: PCP: HISTORY OF PRESENT ILLNESS: ER course was notable for: (1) (2) (3) Recent Travel: PAST MEDICAL HISTORY: PAST SURGICAL HISTORY: Social History: Smoking: Alcohol: Drugs: Family History: Allergies codeine [Codeine] Allergy (Verified 04/11/17 10:45) Hives Penicillins Allergy (Verified 04/11/17 10:45) Hives lactose Adverse Reaction (Verified 04/11/17 10:45) HOME MEDICATIONS: Home Medications Medication Instructions Recorded Gabapentin [Neurontin -] 600 mg PO TID 10/20/15 Hydroxychloroquine Sulfate 200 mg PO DAILY 10/20/15 [Plaquenil] Nifedipine [Procardia Xl] 60 mg PO DAILY 10/20/15 Prednisone [Deltasone -] 5 mg PO ASDIR 10/20/15 Labetalol HCl [Normodyne -] 200 mg PO BID 10/31/15 Acetaminophen [Tylenol 1,000 mg PO Q6H PRN 11/20/15 .Extra-Strength -] Ca/D3/Mag#11/Zinc/Overhead Foreman/Gustabo/Bor 1 each PO DAILY 11/20/15 [Caltrate 600+D Plus Tablet] Iron,Carbonyl [Feosol] 65 mg PO DAILY 11/20/15 Vitamin B Complex [B Complex # 1] 1 each PO DAILY 11/20/15 REVIEW OF SYSTEMS CONSTITUTIONAL: Absent: fever, chills, diaphoresis, generalized weakness, malaise, loss of appetite, weight change HEENT: Absent: rhinorrhea, nasal congestion, throat pain, throat swelling, difficulty swallowing, mouth swelling, ear pain, eye pain, visual changes CARDIOVASCULAR: Absent: chest pain, syncope, palpitations, irregular heart rate, lightheadedness , peripheral edema RESPIRATORY: Absent: cough, shortness of breath, dyspnea with exertion, orthopnea, wheezing, stridor, hemoptysis GASTROINTESTINAL: Absent: abdominal pain, abdominal distension, nausea, vomiting, diarrhea, constipation, melena, hematochezia GENITOURINARY: Absent: dysuria, frequency, urgency, hesitancy, hematuria, flank pain, genital pain MUSCULOSKELETAL: Absent: myalgia, arthralgia, joint swelling, back pain, neck pain SKIN: Absent: rash, itching, pallor HEMATOLOGIC/IMMUNOLOGIC: Absent: easy bleeding, easy bruising, lymphadenopathy, frequent infections ENDOCRINE: Absent: unexplained weight gain, unexplained weight loss, heat intolerance, cold intolerance NEUROLOGIC: Absent: headache, focal weakness or paresthesias, dizziness, unsteady gait, seizure, mental status changes, bladder or bowel incontinence PSYCHIATRIC: Absent: anxiety, depression, suicidal or homicidal ideation, hallucinations. PHYSICAL EXAMINATION Vital Signs - 24 hr 04/11/17 04/11/17 04/11/17 10:41 11:04 13:43 Temperature 99.3 F 101.9 F H 99.3 F Pulse Rate 89 Pulse Rate [ 82 Left Radial] Respiratory 18 20 Rate Blood Pressure 152/76 Blood Pressure 135/80 [Left Arm] O2 Sat by Pulse 98 98 Oximetry (%) GENERAL: Awake, alert, and fully oriented, in no acute distress. HEAD: Normal with no signs of trauma. EYES: Pupils equal, round and reactive to light, extraocular movements intact, sclera anicteric, conjunctiva clear. No lid lag. EARS, NOSE, THROAT: Ears normal, nares patent, oropharynx clear without exudates. Moist mucous membranes. NECK: Normal range of motion, supple without lymphadenopathy, JVD, or masses. LUNGS: Breath sounds equal, clear to auscultation bilaterally. No wheezes, and no crackles. No accessory muscle use. HEART: Regular rate and rhythm, normal S1 and S2 without murmur, rub or gallop. ABDOMEN: Soft, nontender, not distended, normoactive bowel sounds, no guarding, no rebound, no masses. No hepatomegaly or splenomegaly. MUSCULOSKELETAL: Normal range of motion at all joints. No bony deformities or tenderness. No CVA tenderness. UPPER EXTREMITIES: 2+ pulses, warm, well-perfused. No cyanosis. No clubbing. No peripheral edema. LOWER EXTREMITIES: 2+ pulses, warm, well-perfused. No calf tenderness. No peripheral edema. NEUROLOGICAL: Cranial nerves II-XII intact. Normal speech. Normal gait. PSYCHIATRIC: Cooperative. Good eye contact. Appropriate mood and affect. SKIN: Warm, dry, normal turgor, no rashes or lesions noted, normal capillary refill. Laboratory Results - last 24 hr 04/11/17 04/11/17 04/11/17 11:47 11:47 11:47 WBC 15.9 H D RBC 3.79 Hgb 11.0 Hct 34.6 MCV 91.4 MCH 28.9 MCHC 31.6 L RDW 14.5 Plt Count 328 D MPV 8.7 Neutrophils % 73.4 D Lymphocytes % 13.7 D Monocytes % 11.8 H Eosinophils % 0.6 D Basophils % 0.5 PT with INR 13.70 H INR 1.21 H PTT (Actin FS) 26.9 VBG pH 7.33 POC VBG pCO2 52.4 H POC VBG pO2 22.1 L Mixed VBG HCO3 27.1 H Sodium Potassium Chloride Carbon Dioxide Anion Gap BUN Creatinine Creat Clearance w eGFR Random Glucose Lactic Acid Calcium Total Bilirubin AST ALT Alkaline Phosphatase Creatine Kinase Troponin I Total Protein Albumin Lipase Urine Color Urine Appearance Urine pH Ur Specific [place] Urine Protein Urine Glucose (UA) Urine Ketones Urine Blood Urine Nitrite Urine Bilirubin Urine Urobilinogen Ur Leukocyte Esterase Urine WBC (Auto) Urine RBC (Auto) Ur Epithelial Cells Urine Bacteria Hyaline Casts Urine Mucus Urine Yeast Blood Type Antibody Screen 04/11/17 04/11/17 04/11/17 11:47 11:47 11:48 WBC RBC Hgb Hct MCV MCH MCHC RDW Plt Count MPV Neutrophils % Lymphocytes % Monocytes % Eosinophils % Basophils % PT with INR INR PTT (Actin FS) VBG pH POC VBG pCO2 POC VBG pO2 Mixed VBG HCO3 Sodium 138 Potassium 4.3 Chloride 103 Carbon Dioxide 27 Anion Gap 8 BUN 20 H D Creatinine 1.6 H D Creat Clearance w eGFR 31.87 Random Glucose 72 L D Lactic Acid 1.5 Calcium 8.6 Total Bilirubin 0.3 AST 16 ALT 19 Alkaline Phosphatase 92 Creatine Kinase 48 Troponin I < 0.02 Total Protein 7.8 Albumin 3.1 L Lipase Urine Color Urine Appearance Urine pH Ur Specific [place] Urine Protein Urine Glucose (UA) Urine Ketones Urine Blood Urine Nitrite Urine Bilirubin Urine Urobilinogen Ur Leukocyte Esterase Urine WBC (Auto) Urine RBC (Auto) Ur Epithelial Cells Urine Bacteria Hyaline Casts Urine Mucus Urine Yeast Blood Type B POSITIVE Antibody Screen Negative 04/11/17 04/11/17 11:48 12:00 WBC RBC Hgb Hct MCV MCH MCHC RDW Plt Count MPV Neutrophils % Lymphocytes % Monocytes % Eosinophils % Basophils % PT with INR INR PTT (Actin FS) VBG pH POC VBG pCO2 POC VBG pO2 Mixed VBG HCO3 Sodium Potassium Chloride Carbon Dioxide Anion Gap BUN Creatinine Creat Clearance w eGFR Random Glucose Lactic Acid Calcium Total Bilirubin AST ALT Alkaline Phosphatase Creatine Kinase Troponin I Total Protein Albumin Lipase 171 Urine Color Dkyellow Urine Appearance Cloudy Urine pH 6.0 Ur Specific [place] 1.014 Urine Protein 2+ H Urine Glucose (UA) Negative Urine Ketones Negative Urine Blood 2+ H Urine Nitrite Negative Urine Bilirubin Negative Urine Urobilinogen Negative Ur Leukocyte Esterase 3+ H Urine WBC (Auto) 187 Urine RBC (Auto) 55 Ur Epithelial Cells Rare Urine Bacteria Few Hyaline Casts 3 Urine Mucus Few Urine Yeast Few Blood Type Antibody Screen ASSESSMENT/PLAN:
[2017-04-11] MEDS ORDERED: CLINDAMYCIN 600MG PREMIX IVPB 600 MG/50 ML BAG IVPB ONE (17:58)
[2017-04-11] MEDS ORDERED: METOCLOPRAMIDE HCL INJECTION 10 MG/2 ML VIAL IVPB PRN (18:41)
--- NOTE | 2017-04-11 18:43 | PN ---
Teaching Attending Note Name of Resident: Ridge Felipe ATTENDING PHYSICIAN STATEMENT I saw and evaluated the patient. I reviewed the resident's note and discussed the case with the resident. I agree with the resident's findings and plan as documented. SUBJECTIVE:71yo F with PMH SLE on steroids, CAD, GERD, DM, urine obstruction s/ p R Ureteral stent, R BKA 2/2 PVD presented to the ER with fever and chills x3 days. Fever 102 at home. assoc iwth nausea and vomiting multiple episodes negative for blood and dysuria. has been having R flank pain radiating to her back for the past week. had R UVJ stent placed in November 2016. denies CP, SOB, C /D, hematuria OBJECTIVE: Last Vital Signs Temp Pulse Resp BP Pulse Ox 99.7 F H 80 18 157/73 100 04/11/17 18:08 04/11/17 18:08 04/11/17 18:08 04/11/17 18:08 04/11/17 18:08 General NAD CV S1 S2 RRR no murmur/rub/gallop Lungs CTA B/L no wheezing/rales/rhonchi Abdomen soft +R flank pain ND no suprapubic distention/tenderness + R CVA tenderness Extremities no pedal edema R BKA ASSESSMENT AND PLAN: 71yo F with PMH SLE on steroids, CAD, GERD, DM, urine obstruction s/p R Ureteral stent, R BKA 2/2 PVD presented to the ER with fever and chills x3 days. 1. Sepsis due to UTI- medicine admission. Meets sepsis criteria with Temp 101.9 and leukocytosis with +UA. will bolus 2L NS then start at 100cc/H, Levaquin 500mg as pt has PCN allergy (HIVES) and antiemetics will give reglan. concern for hydronephrosis as she had in CT from last month. consult urology for evaluation of stent placement. renal/bladder u/s. check lactic acid 2. Acute on CKD- baseline 1.3-1.4. likely due to sepsis however can not r/o obstruction. f/u renal u/s. urology consulted 3. HTN- hold antihypertensives in setting of sepsis. will re-start as needed 4. SLE on steroids- on low dose 5mg. cont for now with plaquenil 5. DM- not on home medications. check A1c. diabetic diet 6. CAD- no signs of acs. 7. DVT ppx- hep sq
[2017-04-11] MEDS ORDERED: KETOROLAC TROMETHAMINE 15 MG/ML VIAL IVPB PRN (18:58)
[2017-04-11] MEDS: HEPARIN NA (PORCINE) 5,000 UNITS/ML 1ML VIAL SQ SCH (23:20)
[2017-04-12 02:15] VITALS: BMI 23.0
[2017-04-12] MEDS: HEPARIN NA (PORCINE) 5,000 UNITS/ML 1ML VIAL SQ SCH ×3 (06:06→23:00)
[2017-04-12] MEDS: GABAPENTIN 300 MG CAPSULE (FP) PO SCH ×3 (06:10→23:00)
[2017-04-12] MEDS: ACETAMINOPHEN 325 MG TABLET (FP) PO PRN ×2 (06:11→22:41)
[2017-04-12 07:43] LABS: MCH 29.3 pg (25.7-33.7); MCHC 32.5 g/dl (32.0-36.0); MEAN CELL VOLUME 90.2 fl (80-96); MEAN PLT VOLUME 8.7 fl (7.5-11.1); PLATELET COUNT 280 K/MM3 (134-434); RDW 14.8 % (11.6-15.6)
[2017-04-12 08:10] LABS: ALBUMIN 2.7 g/dl (3.4-5.0); ANION GAP 12 (8-16); BILIRUBIN,TOTAL 0.4 mg/dL (0.2-1.0); CALCIUM 8.6 mg/dL (8.5-10.1); CO2 24 mmol/L (21-32); CREATININE 1.3 mg/dL (0.55-1.02); GLUCOSE,RANDOM 79 mg/dL (74-106); MAGNESIUM 2.2 mg/dL (1.8-2.4); PHOSPHOROUS 2.8 mg/dL (2.5-4.9); SGOT/AST 14 U/L (15-37); SGPT/ALT 16 U/L (12-78); TOT PROT 6.7 g/dl (6.4-8.2)
[2017-04-12 08:11] LABS: ALK PHOS 81 U/L (45-117)
[2017-04-12] MEDS ORDERED: PT OWN MED DRAWER 7, Y5N ONE (09:21)
[2017-04-12] MEDS: FERROUS SO4 325 MG TABLET (FP) PO SCH (09:31)
[2017-04-12] MEDS: predniSONE 5 MG TABLET (UD) PO SCH (09:31)
--- NOTE | 2017-04-12 10:16 | PN ---
Progress Note (short form) - Note Progress Note: c/o flank pain but improved since yesterday. no more fevers or chills. Denies Cp , SOB, fever, chills, N/V/C/D Current Medications Generic Name Dose Route Start Last Admin Trade Name Freq PRN Reason Stop Dose Admin Acetaminophen 650 mg 04/11/17 18:42 04/12/17 06:11 Tylenol - PO 650 mg Q6H PRN Administration FEVER OR PAIN Calcium Carbonate/Cholecalciferol 1 tab 04/12/17 12:00 Os-Ryan 500+D - PO DAILY@1200 [facility] Ferrous Sulfate 325 mg 04/12/17 10:00 04/12/17 09:31 Feosol - PO 325 mg DAILY CHALO Administration Gabapentin 600 mg 04/12/17 06:00 04/12/17 06:10 Neurontin - PO 600 mg TID CHALO Administration Heparin Sodium (Porcine) 5,000 unit 04/11/17 22:00 04/12/17 06:06 Heparin - SQ Not Given TID [facility] Hydroxychloroquine Sulfate 200 mg 04/12/17 10:00 Plaquenil - PO DAILY [facility] Ketorolac Tromethamine 15 mg 04/11/17 18:58 Toradol Injection - IVPB 04/16/17 18:57 Q6H PRN PAIN Levofloxacin 750 mg 04/12/17 10:00 Levaquin PO 04/16/17 23:00 DAILY [facility] Metoclopramide HCl 10 mg 04/11/17 18:41 04/12/17 04:44 Reglan Injection - IVPB 10 mg Q6H PRN Administration NAUSEA AND/OR VOMITING Multivitamins 1 each 04/12/17 10:00 Total B With C - PO DAILY [facility] Prednisone 5 mg 04/12/17 10:00 04/12/17 09:31 Deltasone - PO 5 mg DAILY CHALO Administration Last Vital Signs Temp Pulse Resp BP Pulse Ox 97.8 F 81 20 134/68 100 04/12/17 09:30 04/12/17 09:30 04/12/17 09:30 04/12/17 09:30 04/11/17 21:00 General NAD CV S1 S2 RRR no murmur/rub/gallop Lungs CTA B/L no wheezing/rales/rhonchi Abdomen soft NT/ND + R CVA tenderness Extremities no pedal edema R BKA CBCD WBC 12.0 K/mm3 (4.0-10.0) H 04/12/17 07:25 RBC 3.45 M/mm3 (3.60-5.2) L 04/12/17 07:25 Hgb 10.1 GM/dL (10.7-15.3) L 04/12/17 07:25 Hct 31.1 % (32.4-45.2) L 04/12/17 07:25 MCV 90.2 fl (80-96) 04/12/17 07:25 MCHC 32.5 g/dl (32.0-36.0) 04/12/17 07:25 RDW 14.8 % (11.6-15.6) 04/12/17 07:25 Plt Count 280 K/MM3 (134-434) 04/12/17 07:25 MPV 8.7 fl (7.5-11.1) 04/12/17 07:25 CMP Sodium 140 mmol/L (136-145) 04/12/17 07:25 Potassium 3.8 mmol/L (3.5-5.1) 04/12/17 07:25 Chloride 104 mmol/L (98-107) 04/12/17 07:25 Carbon Dioxide 24 mmol/L (21-32) 04/12/17 07:25 Anion Gap 12 (8-16) 04/12/17 07:25 BUN 17 mg/dL (7-18) 04/12/17 07:25 Creatinine 1.3 mg/dL (0.55-1.02) H 04/12/17 07:25 Creat Clearance w eGFR 40.49 (>60) 04/12/17 07:25 Calcium 8.6 mg/dL (8.5-10.1) 04/12/17 07:25 Total Bilirubin 0.4 mg/dL (0.2-1.0) D 04/12/17 07:25 AST 14 U/L (15-37) L 04/12/17 07:25 ALT 16 U/L (12-78) 04/12/17 07:25 Alkaline Phosphatase 81 U/L (45-117) 04/12/17 07:25 Total Protein 6.7 g/dl (6.4-8.2) 04/12/17 07:25 Albumin 2.7 g/dl (3.4-5.0) L 04/12/17 07:25 ASSESSMENT AND PLAN: 71yo F with PMH SLE on steroids, CAD, GERD, DM, urine obstruction s/p R Ureteral stent, R BKA 2/2 PVD presented to the ER with fever and chills x3 days. 1. Sepsis due to UTI- afebrile overnight. clinically improved. no longer vomiting. tolerating breakfast. on Levaquin day 2. can d/c IVF. f/u Cx. 2. Acute on CKD- baseline 1.3-1.4. likely due to sepsis however can not r/o obstruction. trending down. U/s showing peristant R hydro with dilation possible same as CT last month however due to different imaging modalities can not be certain. Urology consulted to comment if stent placement needs to be adjusted. 3. HTN-slightly above goal. will re-start nifedipine. hold labetolol at this time. re-start as needed. 4. normocytic anemia- liekly dilutional. no signs of bleeding. no indication for txn 5. SLE on steroids- on low dose 5mg. cont for now with plaquenil 6. DM- not on home medications. check A1c. diabetic diet 7. CAD- no signs of acs. 8. DVT ppx- hep sq 9. anticipate d/c tomorrow if remains afebrile. pending UCx and urologic intervention. pt verbalized understanding and agreement with plan Visit type - Emergency Visit Emergency Visit: Yes ED Registration Date: 04/11/17 Care time: The patient presented to the Emergency Department on the above date and was hospitalized for further evaluation of their emergent condition. - New Patient This patient is new to me today: No - Critical Care Critical Care patient: No - Discharge Referral Referred to [facility] No
[2017-04-12] MEDS: HYDROXYCHLOROQUINE SO4 200 MG TABLET (FP) PO SCH (11:38)
[2017-04-12] MEDS: LEVOFLOXACIN 750 MG TABLET PO SCH (11:38)
[2017-04-12] MEDS: VITAMIN B COMPLEX W/C COMBO TABLET (FP) PO SCH (11:38)
[2017-04-12] MEDS: NIFEdipine E.R 60 MG TABLET (UD) PO SCH (13:25)
[2017-04-12] MEDS: CALCIUM 500MG/VIT-D 200 UNITS COMBO TABLET (FP) PO SCH (13:25)
--- NOTE | 2017-04-12 22:57 | HOSP ---
Subjective - Review of Symptoms General: No: Chills, Night Sweats HEENT: No: Head Aches, Visual Changes Pulmonary: No: Dyspnea, Cough, Pleuritic Chest Pain Cardiovascular: Yes: Palpitations. No: Chest Pain Gastrointestinal: No: Nausea, Vomiting Neurological: No: Weakness, Confusion Physical Examination Vital Signs: Vital Signs Temperature 97.9 F 04/12/17 15:10 Pulse Rate 81 04/12/17 15:10 Respiratory Rate 18 04/12/17 15:10 Blood Pressure 158/66 04/12/17 15:10 O2 Sat by Pulse Oximetry (%) 100 04/12/17 09:00 Constitutional: Yes: Well Nourished, Mild Distress Eyes: Yes: WNL HENT: Yes: WNL Neck: Yes: WNL Cardiovascular: Yes: Regular Rate and Rhythm. No: Murmur Respiratory: Yes: Regular, CTA Bilaterally Gastrointestinal: Yes: Soft. No: Tenderness Musculoskeletal: Yes: Other (shivering/shaking) Extremities: Yes: WNL Edema: No Neurological: Yes: Alert, Oriented Labs: CBC, BMP 04/12/17 07:25 04/12/17 07:25 Hospitalist Encounter Assessment: 71yo F with PMH of SLE on steroids, CAD, GERD, DM, presented with fever and chills. Resident paged because pt feels palpitations. Pt denies chest pain, sob, abdominal pain. Pt reports this sensation has happened to her before when she took more Neurontin than she is used to. Pt reports her usual dose of Neurontin is 300mg AM and 600mg HS. stat EKG -> NSR Neurontin changed to pt's regular home regimen Pt feeling better upon reassessment. Visit type - Emergency Visit Emergency Visit: Yes ED Registration Date: 04/11/17 Care time: The patient presented to the Emergency Department on the above date and was hospitalized for further evaluation of their emergent condition. - New Patient This patient is new to me today: Yes Date on this admission: 04/12/17 - Critical Care Critical Care patient: No
[2017-04-13] MEDS: HEPARIN NA (PORCINE) 5,000 UNITS/ML 1ML VIAL SQ SCH (06:06)
[2017-04-13] MEDS ORDERED: GABAPENTIN 300 MG CAPSULE (FP) PO SCH ×2 (07:00→22:00)
[2017-04-13 08:01] VITALS: PULSE 86; TEMP 98.1
[2017-04-13 08:46] LABS: BASOPHIL 0.4 % (0-2.0); EOSINOPHIL 1.5 % (0-4.5); MCH 28.9 pg (25.7-33.7); MCHC 32.1 g/dl (32.0-36.0); MEAN CELL VOLUME 89.9 fl (80-96); NEUTROPHILS 76.1 % (42.8-82.8); PLATELET COUNT 292 K/MM3 (134-434); RDW 14.5 % (11.6-15.6); WHITE BLOOD COUNT 11.2 K/mm3 (4.0-10.0)
[2017-04-13 09:04] LABS: ANION GAP 9 (8-16); CALCIUM 9.1 mg/dL (8.5-10.1); CO2 27 mmol/L (21-32); CREATININE 1.2 mg/dL (0.55-1.02); GLUCOSE,RANDOM 102 mg/dL (74-106)
[2017-04-13] MEDS: VITAMIN B COMPLEX W/C COMBO TABLET (FP) PO SCH (09:50)
[2017-04-13] MEDS: NIFEdipine E.R 60 MG TABLET (UD) PO SCH (09:50)
[2017-04-13] MEDS: LEVOFLOXACIN 750 MG TABLET PO SCH (09:50)
[2017-04-13] MEDS: HYDROXYCHLOROQUINE SO4 200 MG TABLET (FP) PO SCH (09:51)
[2017-04-13] MEDS: predniSONE 5 MG TABLET (UD) PO SCH (09:51)
[2017-04-13] MEDS: FERROUS SO4 325 MG TABLET (FP) PO SCH (09:51)
[2017-04-13 10:21] VITALS: BP 156/87
[2017-04-13] MEDS ORDERED: LABETALOL HCL 100 MG TABLET (FP) PO ONE (10:55)
--- NOTE | 2017-04-13 11:06 | DS ---
Physical Exam: SUBJECTIVE: Patient seen and examined. asymptomatic. denies CP, SOB, fever, chills, N/V/C/D OBJECTIVE: Vital Signs Period Temp Pulse Resp BP Sys/Hidalgo Pulse Ox Last 24 Hr 97.9 F-99.1 F 77-91 18-18 123-158/58-87 100 PHYSICAL EXAM GENERAL: The patient is awake, alert, and fully oriented, in no acute distress. HEAD: Normal with no signs of trauma. EYES: PERRL, extraocular movements intact, sclera anicteric, conjunctiva clear. ENT: Ears normal, nares patent, oropharynx clear without exudates, moist mucous membranes. NECK: Trachea midline, full range of motion, supple. LUNGS: Breath sounds equal, clear to auscultation bilaterally, no wheezes, no crackles, no accessory muscle use. HEART: Regular rate and rhythm, S1, S2 without murmur, rub or gallop. ABDOMEN: Soft, nontender, nondistended, normoactive bowel sounds, no guarding, no rebound, no hepatosplenomegaly, no masses. EXTREMITIES: 2+ pulses, warm, well-perfused, no edema. NEUROLOGICAL: Cranial nerves II through XII grossly intact. Normal speech, gait not observed. PSYCH: Normal mood, normal affect. SKIN: Warm, dry, normal turgor, no rashes or lesions noted. LABS Laboratory Results - last 24 hr 04/13/17 04/13/17 04/13/17 07:55 07:55 07:55 WBC 11.2 H RBC 3.59 L Hgb 10.4 L Hct 32.3 L MCV 89.9 MCH 28.9 MCHC 32.1 RDW 14.5 Plt Count 292 MPV 8.0 Neutrophils % 76.1 Lymphocytes % 12.2 Monocytes % 9.8 Eosinophils % 1.5 D Basophils % 0.4 Sodium 140 Potassium 3.6 Chloride 104 Carbon Dioxide 27 Anion Gap 9 BUN 17 Creatinine 1.2 H Random Glucose 102 D Hemoglobin A1c % 5.9 D Calcium 9.1 HOSPITAL COURSE: Date of Admission:04/11/17 Date of Discharge: 04/13/17 Admitting diagnosis: Sepsis due to pyelonephritis, Acute on CKD, Pre hospital course 71yo F with PMH SLE on steroids, CAD, GERD, DM, urine obstruction s/p R Ureteral stent, R BKA 2/2 PVD presented to the ER with fever and chills x3 days. Fever 102 at home. assoc iwth nausea and vomiting multiple episodes negative for blood and dysuria. has been having R flank pain radiating to her back for the past week. had R UVJ stent placed in November 2016. denies CP, SOB, C /D, hematuria Subsequent hospital course Admitted to medicine. aggressive IV hydration. started on Levaquin (PCN allergy) . imaging showed mostly unchanged hydro on the Right. clinically improved. initially antihypertensives held and slowly re-started as tolerated. will d/c on lower dose of labetolol 100mg. d/c home on levaquin to complete 1 week of abx. Minutes to complete discharge: 45 Discharge Summary Reason For Visit: UTI,ACUTE ON CHRONIC RENAL FAILURE Current Active Problems Acute on chronic renal failure (Acute) Sepsis (Acute) Urinary tract infection (Acute) Condition: Stable - Instructions Diet, Activity, Other Instructions: You were admitted for urinary tract infection which affected your kidneys Your kidney function improved and is close to normal. Complete antibiotic even if your symptoms go away Your blood pressure medication (Labetolol) was reduced to 100mg twice a day. Continue this reduced dose until you follow with your primary care doctor to see if you should further adjust it Follow up with your primary care doctor next week Follow up with your urologist in 2 weeks. He should evaluate your stent and images done here IF you develop worsening symptoms, with fever (temp >101) then you should return to the ER. Referrals: Addison Sanchez MD [Primary Care Provider] - Isaak Mead MD [Staff Physician] - - Home Medications Comprehensive Discharge Medication List: Ambulatory Orders Hydroxychloroquine Sulfate [Plaquenil] 200 mg PO DAILY 10/20/15 Nifedipine [Procardia Xl] 60 mg PO DAILY 10/20/15 Prednisone [Deltasone -] 5 mg PO ASDIR 10/20/15 Acetaminophen [Tylenol .Extra-Strength -] 1,000 mg PO Q6H PRN 11/20/15 Ca/D3/Mag#11/Zinc/Document Analyst/Gustabo/Bor [Caltrate 600+D Plus Tablet] 1 each PO DAILY Iron,Carbonyl [Feosol] 65 mg PO DAILY 11/20/15 Vitamin B Complex [B Complex # 1] 1 each PO DAILY 11/20/15 Gabapentin [Neurontin -] 300 mg PO AM capsule 04/13/17 Gabapentin [Neurontin -] 600 mg PO HS capsule 04/13/17 Labetalol HCl 100 mg PO BID #60 tablet 04/13/17 Levofloxacin [Levaquin] 750 mg PO DAILY #4 tab 04/13/17 This patient is new to me today: No Emergency Visit: Yes ED Registration Date: 04/11/17 Care time: The patient presented to the Emergency Department on the above date and was hospitalized for further evaluation of their emergent condition. Critical Care patient: No - Discharge Referral Referred to [facility] Med [facility] No
[2017-04-13] MEDS: CALCIUM 500MG/VIT-D 200 UNITS COMBO TABLET (FP) PO SCH (11:37)
--- NOTE | 2017-04-15 01:40 | EKG ---
Test Reason : Blood Pressure : / mmHG Vent. Rate : 081 BPM Atrial Rate : 081 BPM P-R Int : 128 ms QRS Dur : 082 ms QT Int : 366 ms P-R-T Axes : 023 025 025 degrees QTc Int : 425 ms NORMAL SINUS RHYTHM NORMAL ECG WHEN COMPARED WITH ECG OF 11-APR-2017 12:29, NO SIGNIFICANT CHANGE WAS FOUND Confirmed by YENI BASURTO MD ([id number]) on 04/15/2017 1:39:47 AM Referred By: Confirmed By:YENI BASURTO MD
--- NOTE | 2017-04-15 01:52 | EKG ---
Test Reason : Blood Pressure : / mmHG Vent. Rate : 084 BPM Atrial Rate : 084 BPM P-R Int : 126 ms QRS Dur : 070 ms QT Int : 352 ms P-R-T Axes : 044 036 030 degrees QTc Int : 415 ms NORMAL SINUS RHYTHM NORMAL ECG WHEN COMPARED WITH ECG OF 21-JUL-2016 09:06, NO SIGNIFICANT CHANGE WAS FOUND Confirmed by YENI BASURTO MD ([id number]) on 04/15/2017 1:51:32 AM Referred By: Confirmed By:YENI BASURTO MD
== END 2017-04-13 13:44 | disposition home or self-care (01) | DRG 872 ==
LOC: JER 10:31 → JERBED 15:57 → J5S 18:50
PROVIDERS: ADMIT Internal Medicine; ATTEND Internal Medicine
DX: A41.9 Sepsis, unspecified organism (principal); N39.0 Urinary tract infection, site not specified; N17.9 Acute kidney failure, unspecified; N12 Tubulo-interstitial nephritis, not specified as acute or chronic; M32.9 Systemic lupus erythematosus, unspecified; I25.10 Atherosclerotic heart disease of native coronary artery without angina pectoris; K21.9 Gastro-esophageal reflux disease without esophagitis; E78.5 Hyperlipidemia, unspecified; Z86.718 Personal history of other venous thrombosis and embolism; Z88.0 Allergy status to penicillin; Z89.511 Acquired absence of right leg below knee; R11.0 Nausea; E11.51 Type 2 diabetes mellitus with diabetic peripheral angiopathy without gangrene; E11.22 Type 2 diabetes mellitus with diabetic chronic kidney disease; I12.9 Hypertensive chronic kidney disease with stage 1 through stage 4 chronic kidney disease, or unspecified chronic kidney disease; N18.9 Chronic kidney disease, unspecified; D64.9 Anemia, unspecified
CPT/HCPCS: 36415; 71010-TC; 76775-TC; 80048; 80053; 81003; 81015; 82550; 82803; 83036; 83605; 83690; 83735; 84100; 84484; 85025; 85027; 85610; 85730; 86850; 86900; 86901; 87040; 87086; 87186; 93005; 93010; 99284-25; J1644

== ENCOUNTER 2017-06-30 14:01 | Emergency (ER) | payer BC, OTHER ==
[2017-06-30 14:08] VITALS: BP 169/84; PULSE 86; TEMP 97.9; BMI 25.4
[2017-06-30] MEDS ORDERED: PHENYTOIN NA EXTENDED 100 MG CAPSULE (FP) PO ONE (16:02)
--- NOTE | 2017-06-30 16:20 | PDOC ---
History of Present Illness - General Chief Complaint: Vaginal Bleeding Stated Complaint: VAGINAL BLEEDING Time Seen by Provider: 06/30/17 16:19 - History of Present Illness Initial Comments: 06/30/17 16:29 Ms. Trent is a 72 yo female w/ pmh of anemia, lupus (with subsequent R BKA), CAD, GERD, DM, prior kidney stones and stent who presents for evaluation of several days of bleeding with urination and bilateral low back pain/pelvic pain. Ms. Trent had previously talked with her box car washer Dr. Mead about this who told her it was probably a UTI and called in ABX for her, however she also spoke with her PCP Dr. Beyer who recommended she come in for evaluation all the same. She has no other complaints at this time. The patient denies chest pain, shortness of breath, headache and dizziness. Denies fever, chills, nausea, vomit, diarrhea and constipation. Denies dysuria, frequency, and urgency. Allergies: Codeine, Penicillins Past History - Past Medical History Allergies/Adverse Reactions: Allergies Allergy/AdvReac Type Severity Reaction Status Date / Time codeine [Codeine] Allergy Hives Verified 06/30/17 14:05 Penicillins Allergy Hives Verified 06/30/17 14:05 lactose AdvReac Verified 06/30/17 14:05 Home Medications: Ambulatory Orders Hydroxychloroquine Sulfate [Plaquenil] 200 mg PO DAILY 10/20/15 Nifedipine [Procardia Xl] 60 mg PO DAILY 10/20/15 predniSONE [Deltasone -] 5 mg PO ASDIR 10/20/15 Acetaminophen [Tylenol .Extra-Strength -] 1,000 mg PO Q6H PRN 11/20/15 Ryan/D3/Mag11/Zinc/Tar Chaser/Gustabo/Bor [Caltrate 600+D Plus Tablet] 1 each PO DAILY Iron,Carbonyl [Feosol] 65 mg PO DAILY 11/20/15 Vitamin B Complex [B Complex # 1] 1 each PO DAILY 11/20/15 Gabapentin [Neurontin -] 300 mg PO AM capsule 04/13/17 Gabapentin [Neurontin -] 600 mg PO HS capsule 04/13/17 Labetalol HCl 100 mg PO BID #60 tablet 04/13/17 levoFLOXacin [Levaquin] 750 mg PO DAILY #4 tab 04/13/17 levoFLOXacin [Levaquin] 750 mg PO DAILY #5 tab 06/30/17 Anemia: Yes (chronic) Asthma: No Cancer: No Cardiac Disorders: Yes (Leg stents) CVA: No COPD: No CHF: No DVT: Yes (by history) Dementia: No Diabetes: No Dialysis: No GI Disorders: Yes (GERD) Disorders: No HTN: Yes Hypercholesterolemia: Yes Kidney Stones: Yes Liver Disease: No Psychiatric Problems: No Seizures: No Thyroid Disease: No Other medical history: LUPUS - Surgical History Abdominal Surgery: Yes (10/2015 mass removed-negative) Appendectomy: No Cardiac Surgery: Yes (STENTS OCTOBER 2010 IN LEFT LEG) Cholecystectomy: No Lung Surgery: No Neurologic Surgery: No Orthopedic Surgery: Yes (R SHADEA (1996)) - Suicide/Smoking/Psychosocial Hx Smoking Status: No Smoking History: Never smoked Have you smoked in the past 12 months: No Number of Cigarettes Smoked Daily: 0 If you are a former smoker, when did you quit?: 1979 Information on smoking cessation initiated: No Hx Alcohol Use: No Drug/Substance Use Hx: No Substance Use Type: None Hx Substance Use Treatment: No Review of Systems - Review of Systems Comments:: 06/30/17 16:34 GENERAL/CONSTITUTIONAL: No fever or chills. No weakness. HEAD, EYES, EARS, NOSE AND THROAT: No change in vision. No ear pain or discharge. No sore throat. CARDIOVASCULAR: No chest pain or shortness of breath RESPIRATORY: No cough, wheezing, or hemoptysis. GASTROINTESTINAL: +Bilateral pelvic pain and low back pain. No nausea, vomiting , diarrhea or constipation. GENITOURINARY: +Hematuria since Friday as described. MUSCULOSKELETAL: No joint or muscle swelling or pain. No neck or back pain. SKIN: No rash NEUROLOGIC: No headache, vertigo, loss of consciousness, or change in strength/ sensation. ENDOCRINE: No increased thirst. No abnormal weight change HEMATOLOGIC/LYMPHATIC: No anemia, easy bleeding, or history of blood clots. ALLERGIC/IMMUNOLOGIC: No hives or skin allergy. 06/30/17 16:36 *Physical Exam - Vital Signs Last Vital Signs Temp Pulse Resp BP Pulse Ox 97.9 F 86 19 169/84 98 06/30/17 14:05 06/30/17 14:05 06/30/17 14:05 06/30/17 14:05 06/30/17 14:05 - Physical Exam Comments: 06/30/17 16:35 GENERAL: Awake, alert, and fully oriented, in no acute distress HEAD: No signs of trauma, normocephalic, atraumatic EYES: PERRLA, EOMI, sclera anicteric, conjunctiva clear ENT: Auricles normal inspection, hearing grossly normal, nares patent, oropharynx clear without exudates. Moist mucosa NECK: Normal ROM, supple, no lymphadenopathy, JVD, or masses LUNGS: No distress, speaks full sentences, clear to auscultation bilaterally HEART: Regular rate and rhythm, normal S1 and S2, no murmurs, rubs or gallops, peripheral pulses normal and equal bilaterally. ABDOMEN: +Bilateral CVA tenderness. Soft, nontender, normoactive bowel sounds. No guarding, no rebound. No masses EXTREMITIES: +RLE well healed BKA. Normal inspection, Normal range of motion, no edema. No clubbing or cyanosis. NEUROLOGICAL: Cranial nerves II through XII grossly intact. Normal speech, normal gait, no focal sensorimotor deficits SKIN: Warm, Dry, normal turgor, no rashes or lesions noted. ED Treatment Course - LABORATORY CBC & Chemistry Diagram: 06/30/17 16:47 06/30/17 16:47 Medical Decision Making - Medical Decision Making 06/30/17 18:48 Ms. Trent is a 72 yo female w/ pmh as described who presents for evaluation of hematuria and bilateral CVA tenderness. CBC/CMP/UA/Urine culture sent for analysis. Patient noted to have UTI as below. This in conjunction with bilateral CVA tenderness raises concern for pyelonephritis. Levofloxacin given in ER and sent to patient's pharmacy for treatment. Patient will also follow-up with primary care provider/box car washer for further evaluation. Patient verbalized agreement and understanding and will comply. Laboratory Results - last 24 hr 06/30/17 06/30/17 06/30/17 16:47 16:47 17:00 WBC 9.8 RBC 3.96 Hgb 11.7 D Hct 35.0 MCV 88.3 MCH 29.6 MCHC 33.5 RDW 16.3 H D Plt Count 293 MPV 8.2 Neutrophils % 69.2 Lymphocytes % 20.5 D Monocytes % 8.7 Eosinophils % 0.4 Basophils % 1.2 Sodium 142 Potassium 4.4 Chloride 109 H Carbon Dioxide 25 Anion Gap 8 BUN 19 H Creatinine 1.2 H Creat Clearance w eGFR 44.29 Random Glucose 61 L Calcium 9.2 Total Bilirubin 0.2 D AST 14 L ALT 20 Alkaline Phosphatase 84 Total Protein 7.7 Albumin 3.5 Urine Color Yellow Urine Appearance Slcloudy Urine pH 7.0 Ur Specific Vaughn 1.017 Urine Protein Negative Urine Glucose (UA) Negative Urine Ketones Negative Urine Blood 2+ H Urine Nitrite Negative Urine Bilirubin Negative Urine Urobilinogen Negative Ur Leukocyte Esterase 1+ H D Urine WBC (Auto) 28 Urine RBC (Auto) 102 Ur Epithelial Cells Rare Calcium Oxalate Crystal Rare Hyaline Casts 5 Urine Mucus Rare *DC/Admit/Observation/Transfer Diagnosis at time of Disposition: Pyelonephritis - Discharge Dispostion Disposition: HOME - Prescriptions Prescriptions: levoFLOXacin [Levaquin] 750 mg PO DAILY #5 tab - Referrals Referrals: Yaya Montoya MD [Primary Care Provider] - - Patient Instructions Printed Discharge Instructions: DI for Kidney Infection Additional Instructions: Please return if any increased pain, fever, chills, or other concerning symptoms. Follow-up with box car washer as discussed for further evaluation later this week. - Post Discharge Activity
--- NOTE | 2017-06-30 16:48 | PDOC ---
Attending Attestation - Resident Resident Name: Toi Melendez - ED Attending Attestation I have performed the following: I have examined & evaluated the patient, The case was reviewed & discussed with the resident, I agree w/resident's findings & plan, Exceptions are as noted - HPI HPI: 06/30/17 16:46 72y hx of anemia, lupus, cad, gerd, dm, kidney stones presents with complaint of vaginal bleeding with b/l lower abd pain radiating to the back. pt denie any fever/chills. The dysuria, frequency, diarrhea. Pt states that she has been spotting so much she had to go buy some pads. Pt notes she had a history of bleeding in the past, was worked up by dr. cross with a negative workup, and referred to urology - was given a stent by dr. Mcclellan. on exam pt is wll appearing, in no distress abd exam noted for mild suprapubic tendernes no cva tenderness speed belt sander exam shows no discharge or bleeding 06/30/17 18:53 suspec edwige urine cultures sent n osign[facility]ario of vag bleeding will have pt fu with her GI and doctors - Physicial Exam PE: 06/30/17 19:59 see above - Medical Decision Making 06/30/17 19:59 see above
[2017-06-30 17:05] LABS: BASO % 1.2 % (0-2.0); EOS % 0.4 % (0-4.5); HEMOGLOBIN 11.7 GM/dL (10.7-15.3); LYMPH % 20.5 % (8-40); MCH 29.6 pg (25.7-33.7); MCHC 33.5 g/dl (32.0-36.0); MEAN CELL VOLUME 88.3 fl (80-96); MEAN PLT VOLUME 8.2 fl (7.5-11.1); MONO % 8.7 % (3.8-10.2); NEUT % 69.2 % (42.8-82.8); PLATELET COUNT 293 K/MM3 (134-434); RBC 3.96 M/mm3 (3.60-5.2); RDW 16.3 % (11.6-15.6); WHITE BLOOD COUNT 9.8 K/mm3 (4.0-10.0)
[2017-06-30 17:33] LABS: ALBUMIN 3.5 g/dl (3.4-5.0); ALK PHOS 84 U/L (45-117); ANION GAP 8 (8-16); BILIRUBIN,TOTAL 0.2 mg/dL (0.2-1.0); BLOOD UREA NITROGEN 19 mg/dL (7-18); CALCIUM 9.2 mg/dL (8.5-10.1); CHLORIDE 109 mmol/L (98-107); CO2 25 mmol/L (21-32); CREATININE 1.2 mg/dL (0.55-1.02); GLUCOSE,RANDOM 61 mg/dL (74-106); POTASSIUM 4.4 mmol/L (3.5-5.1); SGOT/AST 14 U/L (15-37); SGPT/ALT 20 U/L (12-78); SODIUM 142 mmol/L (136-145); TOT PROT 7.7 g/dl (6.4-8.2)
[2017-06-30 18:04] LABS: URINE APPEARANCE SLCLOUDY; URINE BILIRUBIN NEGATIVE (NEGATIVE); URINE BLOOD 2+ (NEGATIVE); URINE COLOR YELLOW; URINE GLUCOSE (UA) NEGATIVE (NEGATIVE); URINE KETONE NEGATIVE (NEGATIVE); URINE NITRITE NEGATIVE (NEGATIVE); URINE PROTEIN NEGATIVE (NEGATIVE); URINE UROBILINOGEN NEGATIVE mg/dL (0.2-1.0)
[2017-06-30 18:14] LABS: URINE LEUK ESTERASE 1+ (NEGATIVE)
[2017-06-30 18:17] LABS: CALCIUM OXALATE CRYSTALS RARE /hpf (NONE SEEN); EPI CELLS RARE /HPF (FEW); URINE HYALINE CAST 5 /lpf; URINE MUCUS RARE
--- NOTE | 2017-07-03 08:12 | PDOC ---
Patient Follow-up (Call Back) - Post ED Follow - Up Disposition at time of original discharge: HOME Reason for Call Back: Abnwl. Microbiology (Pt's urine cx shows group D strep or entero coccus on preliminary. Pt on levaquin. Will await final report)
== END 2017-06-30 19:05 | disposition home or self-care (01) ==
LOC: JER 14:01
DX: N12 Tubulo-interstitial nephritis, not specified as acute or chronic (principal); I10 Essential (primary) hypertension; I25.10 Atherosclerotic heart disease of native coronary artery without angina pectoris; D64.9 Anemia, unspecified; M32.9 Systemic lupus erythematosus, unspecified; K21.9 Gastro-esophageal reflux disease without esophagitis; E11.9 Type 2 diabetes mellitus without complications; E78.00 Pure hypercholesterolemia, unspecified; Z87.442 Personal history of urinary calculi; Z88.0 Allergy status to penicillin; Z88.5 Allergy status to narcotic agent; Z91.011 Allergy to milk products; Z95.828 Presence of other vascular implants and grafts; Z86.718 Personal history of other venous thrombosis and embolism
CPT/HCPCS: 36415; 80053; 81003; 81015; 85025; 87086; 87186; 99281-25

== ENCOUNTER 2017-07-24 16:37 | Inpatient (IN) | payer BC ==
--- NOTE | 2017-07-24 16:57 | PDOC ---
Rapid Medical Evaluation Time Seen by Provider: 07/24/17 16:50 Medical Evaluation: Allergies Allergy/AdvReac Type Severity Reaction Status Date / Time codeine [Codeine] Allergy Hives Verified 07/23/17 10:42 Penicillins Allergy Hives Verified 07/23/17 10:42 lactose AdvReac Verified 07/23/17 10:42 07/24/17 16:50 The patient presents with a chief complaint of: Pt. had R ureteral stent placed yesterday for hydronephrosis d/t funmilayo. Pain since last night and blood in the urine. Pt. also reports falling off of her bed last night when trying to use the comode. Unsure if she hit her head, doesn't remember. Unsure if she passed out. C/o pain to the back now, headache and feeling weak.Currently on Bactrim I have performed a brief in-person evaluation of this patient; Pertinent physical exam findings: ambulatory, in no respiratory distress. R CVA tenderness. Grossly neurologically intact I have ordered the following: CBC, CMP, UA, UC, head CT The patient will proceed to the ED for further evaluation.
[2017-07-24 16:58] VITALS: BMI 25.6
--- NOTE | 2017-07-24 17:21 | PDOC ---
History of Present Illness - General Chief Complaint: Weakness Stated Complaint: POST OP PAIN Time Seen by Provider: 07/24/17 16:50 - History of Present Illness Initial Comments: 07/24/17 18:03 PCP: Urologist " Dr Jaime Ms. Trent is a 72 yo female w/ pmh of anemia, lupus (with subsequent R BKA), prior kidney stones s/p stent, HTN, HLD who presents to the ED after she fell down and spend the night on the floor. pt reports dizziness and lightheadedness. pt had a stent replacement procedure yesterday and was discharged home. at med night she was up to use the bath room but she lost her balance and fell down , she denies hitting her head. pt stayed on the floor till 7 am when her son came to the house. pt complains of nausea, lightheadedness, hematuria, dysuria and chills. pt denies any chest pain , palpitation, sob, abdominal pain , vomiting , diarrhea or constipation. pt reports fever 101 at home and she took 2 Tylenol for that , she reports dizziness when she get up. PMHx: Lupus, hypertension, hyperlipidemia, coronary artery disease s/p stents, DVT, GERD, obstructive uropathy s/p renal stent PSHx: Right BKA, Left leg vessel stent, lymph node removal from neck and stomach. Allergies: Codeine, Penicillins, lactose intolerance social hx : previous smoker , quit long time ago, drink socially , denies any drug abuse FHx: non contributory GENERAL: Awake, alert, and fully oriented, in NAD HEAD: Normal with no signs of trauma. EYES: Pupils equal, round and reactive to light, extraocular movements intact, sclera anicteric, conjunctiva clear. No lid lag. ENT: Ears normal, nares patent, oropharynx clear without exudates. Dry mucus membranes NECK: Normal range of motion, supple without lymphadenopathy, JVD, or masses. LUNGS: Breath sounds equal, clear to auscultation bilaterally. No wheezes, and no crackles. No accessory muscle use. HEART: Regular rate and rhythm, normal S1 and S2 without murmur, rub or gallop. ABDOMEN: Soft, non tender, not distended, normoactive bowel sounds, no guarding , no rebound, no masses. MUSCULOSKELETAL: Normal range of motion at all joints. No bony deformities or tenderness. left side CVA tenderness UPPER EXTREMITIES: 2+ pulses, warm, well-perfused. No cyanosis. No clubbing. No peripheral edema. LOWER EXTREMITIES: R sided above knee amputation noted, with prosthesis NEUROLOGICAL: Cranial nerves II-XII intact. Normal speech. PSYCHIATRIC: Cooperative. Good eye contact. Appropriate mood and affect. SKIN: Warm, dry, no rashes or lesions noted, normal capillary refill. A/P We need to R/O any fracture , R/O cardiac and neuro reason for psyncope , pt has stent replacemnet yesterday and we need to R/O any souse of infection.and R/ O rhabdomyolysis. also UTI could participate to her sepsis and the fall Work UP: * CBC, CMP * Head Ct without contrast * CPK * blood cx and urine cx * started I * V NS 125 cc/hr * EKG 07/24/17 18:28 07/24/17 18:40 one dose of vanco was given due to elevated WBC 21,000 and elevated LA 2.1 continue with fluids will admit pt to inpatient services spoken with ayaan MONGE for admission Follow blood cx and urine cx pt was found to have ULICES with cr 1.6 , and CPK 294 continue with IV fluids cosult urologist case was sign out to case was discussed with admitting team ayaan MONGE CT head came back negative for any acute pathology. Past History - Past Medical History Allergies/Adverse Reactions: Allergies Allergy/AdvReac Type Severity Reaction Status Date / Time codeine [Codeine] Allergy Hives Verified 07/24/17 16:50 Penicillins Allergy Hives Verified 07/24/17 16:50 lactose AdvReac Verified 07/24/17 16:50 Home Medications: Ambulatory Orders Hydroxychloroquine Sulfate [Plaquenil] 200 mg PO DAILY 10/20/15 Nifedipine [Procardia Xl] 60 mg PO BID 10/20/15 predniSONE [Deltasone -] 5 mg PO ASDIR 10/20/15 Acetaminophen [Tylenol .Extra-Strength -] 1,000 mg PO Q6H PRN 11/20/15 Ryan/D3/Mag11/Zinc/Loan Supervisor/Gustabo/Bor [Caltrate 600+D Plus Tablet] 1 each PO DAILY Iron,Carbonyl [Feosol] 65 mg PO DAILY 11/20/15 Vitamin B Complex [B Complex # 1] 1 each PO DAILY 11/20/15 Gabapentin [Neurontin -] 300 mg PO AM capsule 04/13/17 Gabapentin [Neurontin -] 600 mg PO HS capsule 04/13/17 Labetalol HCl 200 mg PO TID 07/22/17 Sulfamethoxazole/Trimethoprim [Bactrim Ds -] 1 tab PO BID #14 tablet 07/23/17 Anemia: Yes (chronic) Asthma: No Cancer: No Cardiac Disorders: Yes (Leg stents) CVA: No COPD: No CHF: No DVT: Yes (by history) Dementia: No Diabetes: No Dialysis: No GI Disorders: Yes (GERD) Disorders: No HTN: Yes Hypercholesterolemia: Yes Kidney Stones: Yes Liver Disease: No Psychiatric Problems: No Seizures: No Thyroid Disease: No Other medical history: LUPUS - Surgical History Abdominal Surgery: Yes (10/2015 mass removed-negative) Appendectomy: No Cardiac Surgery: Yes (STENTS OCTOBER 2010 IN LEFT LEG) Cholecystectomy: No Lung Surgery: No Neurologic Surgery: No Orthopedic Surgery: Yes ([place] BUENROSTRO (1996)) - Suicide/Smoking/Psychosocial Hx Smoking Status: No Smoking History: Former smoker Have you smoked in the past 12 months: No Number of Cigarettes Smoked Daily: 0 If you are a former smoker, when did you quit?: 1979 Information on smoking cessation initiated: No Hx Alcohol Use: No Drug/Substance Use Hx: No Substance Use Type: None Hx Substance Use Treatment: No *Physical Exam - Vital Signs Last Vital Signs Temp Pulse Resp BP Pulse Ox 98.6 F 85 19 136/57 96 07/24/17 16:50 07/24/17 16:50 07/24/17 16:50 07/24/17 16:50 07/24/17 16:50 ED Treatment Course - LABORATORY CBC & Chemistry Diagram: 07/24/17 17:47 07/24/17 17:47
--- NOTE | 2017-07-24 17:22 | PDOC ---
Attending Attestation - HPI HPI: 07/24/17 19:04 The patient is a 72 year old female, with a significant past medical history of anemia, lupus (subsequent right below the knee amputation), kidney stones (s/p stent performed by Dr Mead), who presents to the emergency department with, evaluation s/p fall last night. The patient states she went to the bathroom around midnight last night and lost her balance and fell onto the floor. The patient denies any chest pain, palpitations, shortness of breath, nausea, dizziness or lightheadedness prior to falling. The patient denies head strike/injury or loss of consciousness. The patient states she was unable to get up from the bathroom floor on her own and was on the floor for approx. 7 hours before her son came over in the morning at 7 am and helped her up. The patient reports recent nausea (denies emesis), lightheadedness, hematuria, dysuria, fever (101 F) and chills beginning earlier today. She denies recent vomit, diarrhea or constipation. She denies recent chest pain or shortness of breath. Allergies: Codeine, Penicillins, Lactose PCP: Urologist: Dr Mead Documentation prepared by Rogelio Chappell, acting as medical physiologist for Abbie Reeder DO. - Physicial Exam PE: 07/24/17 19:07 GENERAL: Awake, alert, and fully oriented, in no acute distress HEAD: No signs of trauma EYES: PERRLA, EOMI, sclera anicteric, conjunctiva clear ENT: Auricles normal inspection, hearing grossly normal, nares patent, oropharynx clear without exudates. Moist mucosa NECK: Normal ROM, supple, no lymphadenopathy, JVD, or masses LUNGS: Breath sounds equal, clear to auscultation bilaterally. No wheezes, and no crackles HEART: Regular rate and rhythm, normal S1 and S2, no murmurs, rubs or gallops CHEST WALL: No tenderness. ABDOMEN: Soft, nontender, normoactive bowel sounds. No guarding, no rebound. No masses BACK: +Right CVA tenderness. EXTREMITIES: +Prosthetic right lower extremitiy. Normal range of motion, no edema. No clubbing or cyanosis. No cords, erythema, or tenderness NEUROLOGICAL: Cranial nerves II through XII grossly intact. Normal speech, normal gait SKIN: Warm, Dry, normal turgor, no rashes or lesions noted. <Rogelio Chappell - Last Filed: 07/24/17 19:04> - Resident Resident Name: Antonio Andrews - ED Attending Attestation I have performed the following: I have examined & evaluated the patient, The case was reviewed & discussed with the resident, I agree w/resident's findings & plan, Exceptions are as noted - Medical Decision Making 07/24/17 17:22 I, Dr. Abbie Reeder, DO, attest that this document has been prepared under my direction and personally reviewed by me in its entirety. I further attest, that it accurately reflects all work, treatment, procedures and medical decision -making performed by me. 07/24/17 19:41 a/p: 72yo female with stent placement yesterday -hx of enterococcus in urine cultures - sensitive to vanco -stent placed yesterday -fever 101 today -fall last night - laid on the ground x 7 hours -concern for elevated CPK -will check labs, cultures -ct head -ekg 07/24/17 19:43 wbc 21 -vanco ordered will need admission pending further eval dr. diaz is PMD - covered by [facility] overnight - [facility] -will place consult to Dr. Mead 07/24/17 19:44 elevated bun/cr 07/24/17 23:40 pt accepted by [facility] uti on labs, elevated WBC, elevated bun/cr <Abbie Reeder - Last Filed: 07/24/17 23:40>
[2017-07-24 18:00] LABS: HEMATOCRIT 34.7 % (32.4-45.2); HEMOGLOBIN 11.5 GM/dL (10.7-15.3); MCH 29.2 pg (25.7-33.7); MCHC 33.2 g/dl (32.0-36.0); MEAN CELL VOLUME 87.9 fl (80-96); MEAN PLT VOLUME 8.6 fl (7.5-11.1); PLATELET COUNT 262 K/MM3 (134-434); RBC 3.94 M/mm3 (3.60-5.2); RDW 16.7 % (11.6-15.6); WHITE BLOOD COUNT 21.8 K/mm3 (4.0-10.0)
[2017-07-24] MEDS ORDERED: VANCOMYCIN 1,250 MG in DEXTROSE 5%-WATER - 250 ML IVPB ONE (18:29)
[2017-07-24] MEDS ORDERED: ONDANSETRON 4 MG TABLET PO ONE (18:31)
[2017-07-24 18:52] LABS: ALBUMIN 3.3 g/dl (3.4-5.0); ANION GAP 10 (8-16); BILIRUBIN,TOTAL 0.3 mg/dL (0.2-1.0); BLOOD UREA NITROGEN 26 mg/dL (7-18); CALCIUM 9.2 mg/dL (8.5-10.1); CHLORIDE 103 mmol/L (98-107); CO2 26 mmol/L (21-32); CREATININE 1.6 mg/dL (0.55-1.02); GLUCOSE,RANDOM 101 mg/dL (74-106); POTASSIUM 4.3 mmol/L (3.5-5.1); SGOT/AST 34 U/L (15-37); SGPT/ALT 29 U/L (12-78); SODIUM 139 mmol/L (136-145)
[2017-07-24 18:54] LABS: ALK PHOS 85 U/L (45-117); TOT PROT 7.4 g/dl (6.4-8.2)
[2017-07-24] MEDS ORDERED: ONDANSETRON 4 MG/2 ML VIAL ONE (19:06)
[2017-07-24] MEDS ORDERED: VANCOMYCIN 1 GRAM (PRE-DOCKED) 1,000 MG/250 ML BAG IVPB ONE (19:06)
[2017-07-24] MEDS: SODIUM CHLORIDE 1,000 ML IV SCH (19:12)
[2017-07-24 21:09] LABS: URINE APPEARANCE SLCLOUDY; URINE BILIRUBIN NEGATIVE (<2.0 mg/dL); URINE BLOOD 2+ (NEGATIVE); URINE COLOR YELLOW; URINE GLUCOSE (UA) NEGATIVE (NEGATIVE); URINE KETONE NEGATIVE (NEGATIVE); URINE NITRITE NEGATIVE (NEGATIVE); URINE UROBILINOGEN NEGATIVE mg/dL (0.2-1.0)
[2017-07-24 21:27] LABS: URINE LEUK ESTERASE 3+ (NEGATIVE); URINE PROTEIN 2+ (NEGATIVE)
[2017-07-24 21:30] LABS: EPI CELLS RARE /HPF (FEW); URINE MUCUS RARE
[2017-07-24] MEDS ORDERED: SODIUM CHLORIDE 1,000 ML IV STA (22:07)
[2017-07-24] MEDS ORDERED: AZTREONAM 1 GM in DEXTROSE 5%-WATER - 50 ML IVPB ONE (22:08)
[2017-07-24] MEDS ORDERED: ACETAMINOPHEN 1000 MG/100 ML VIAL (NON FORMULARY) IVPB ONE (22:08)
--- NOTE | 2017-07-24 22:11 | HP ---
CHIEF COMPLAINT: fell last night, fof by son, weakness PCP: Jan, Urology: [place] HISTORY OF PRESENT ILLNESS: This is a 72 year old female with a significant past medical history of lupus on prednisone, renal stones s/p ureteral stent who presented to the ED s/p fall last night, unable to get up, laid on floor x 7 hours until son found her this am. Denies injury s/p fall. Pt is s/p R ureteral stent exchange yesterday. Upon exam pt with rigors and chills. Also noted with nonproductive cough. ER course was notable for: (1) WBC 21.8 (2) BUN 26/Cr 1.6 Recent Travel: pt denies PAST MEDICAL HISTORY: Anemia, HTN, HLD, lupus on prednisone, renal stones, DVT, GERD PAST SURGICAL HISTORY: R BKA 1996 R ureteral stent B/L leg stents 2010 Social History: Smoking: quit "many" years ago Alcohol: pt denies Drugs: pt denies Family History: mother age 33, lupus father age 90, arthritis Allergies codeine [Codeine] Allergy (Verified 07/24/17 16:50) Hives Penicillins Allergy (Verified 07/24/17 16:50) Hives lactose Adverse Reaction (Verified 07/24/17 16:50) HOME MEDICATIONS: 3 Medication Instructions Recorded Hydroxychloroquine Sulfate 200 mg PO DAILY 10/20/15 [Plaquenil] Nifedipine [Procardia Xl] 60 mg PO BID 10/20/15 predniSONE [Deltasone -] 5 mg PO ASDIR 10/20/15 Acetaminophen [Tylenol 1,000 mg PO Q6H PRN 11/20/15 .Extra-Strength -] Ryan/D3/Mag11/Zinc/As400 Programmer Analyst/Gustabo/Bor 1 each PO DAILY 11/20/15 [Caltrate 600+D Plus Tablet] Iron,Carbonyl [Feosol] 65 mg PO DAILY 11/20/15 Vitamin B Complex [B Complex # 1] 1 each PO DAILY 11/20/15 Gabapentin [Neurontin -] 300 mg PO AM capsule 04/13/17 Gabapentin [Neurontin -] 600 mg PO HS capsule 04/13/17 Labetalol HCl 200 mg PO TID 07/22/17 Sulfamethoxazole/Trimethoprim 1 tab PO BID #14 tablet 07/23/17 [Bactrim Ds -] REVIEW OF SYSTEMS CONSTITUTIONAL: chills, generalized weakness Absent: fever, diaphoresis, malaise, loss of appetite, weight change HEENT: Absent: rhinorrhea, nasal congestion, throat pain, throat swelling, difficulty swallowing, mouth swelling, ear pain, eye pain, visual changes CARDIOVASCULAR: Absent: chest pain, syncope, palpitations, irregular heart rate, lightheadedness , peripheral edema RESPIRATORY: Absent: cough, shortness of breath, dyspnea with exertion, orthopnea, wheezing, stridor, hemoptysis GASTROINTESTINAL: Absent: abdominal pain, abdominal distension, nausea, vomiting, diarrhea, constipation, melena, hematochezia GENITOURINARY: Absent: dysuria, frequency, urgency, hesitancy, hematuria, flank pain, genital pain MUSCULOSKELETAL: Absent: myalgia, arthralgia, joint swelling, back pain, neck pain SKIN: Absent: rash, itching, pallor HEMATOLOGIC/IMMUNOLOGIC: Absent: easy bleeding, easy bruising, lymphadenopathy, frequent infections ENDOCRINE: Absent: unexplained weight gain, unexplained weight loss, heat intolerance, cold intolerance NEUROLOGIC: Absent: headache, focal weakness or paresthesias, dizziness, unsteady gait, seizure, mental status changes, bladder or bowel incontinence PSYCHIATRIC: Absent: anxiety, depression, suicidal or homicidal ideation, hallucinations. PHYSICAL EXAMINATION Vital Signs - 24 hr 3 07/24/17 07/24/17 16:50 22:08 Temperature 98.6 F 102.8 F H Pulse Rate 85 Pulse Rate [ 104 H Left Radial] Respiratory 19 18 Rate Blood Pressure 136/57 Blood Pressure 155/66 [Left Arm] O2 Sat by Pulse 96 Oximetry (%) GENERAL: Awake, alert, and fully oriented, in no acute distress. HEAD: Normal with no signs of trauma. EYES: Pupils equal, round and reactive to light, extraocular movements intact, sclera anicteric, conjunctiva clear. No lid lag. EARS, NOSE, THROAT: Ears normal, nares patent, oropharynx clear without exudates. Moist mucous membranes. NECK: Normal range of motion, supple without lymphadenopathy, JVD, or masses. LUNGS: Breath sounds equal, diminished, grossly clear to auscultation bilaterally. No wheezes, and no crackles. No accessory muscle use. HEART: Regular rate and rhythm, normal S1 and S2 without murmur, rub or gallop. ABDOMEN: Soft, nontender, not distended, normoactive bowel sounds, no guarding, no rebound, no masses. No hepatomegaly or splenomegaly. MUSCULOSKELETAL: Normal range of motion at all joints. No bony deformities or tenderness. UPPER EXTREMITIES: 2+ pulses, warm, well-perfused. No cyanosis. No clubbing. No peripheral edema. LOWER EXTREMITIES: 2+ pulses, warm, well-perfused. No calf tenderness. No peripheral edema. NEUROLOGICAL: Cranial nerves II-XII intact. Normal speech. Normal gait. PSYCHIATRIC: Cooperative. Good eye contact. Appropriate mood and affect. SKIN: Warm, dry, normal turgor, no rashes or lesions noted, normal capillary refill. Laboratory Results - last 24 hr 3 07/24/17 07/24/17 07/24/17 07/24/17 17:47 17:47 18:50 18:53 WBC 21.8 H D RBC 3.94 Hgb 11.5 Hct 34.7 MCV 87.9 MCH 29.2 MCHC 33.2 RDW 16.7 H Plt Count 262 MPV 8.6 Neutrophils % No Result Required. Neutrophils % (Manual) 80.0 Band Neutrophils % 8.0 Lymphocytes % No Result Required. Lymphocytes % (Manual) 7.0 L Monocytes % (Manual) 2 L Eosinophils % (Manual) 2.0 Basophils % (Manual) 0.0 Metamyelocytes 1 Sodium 139 Potassium 4.3 Chloride 103 Carbon Dioxide 26 Anion Gap 10 BUN 26 H Creatinine 1.6 H Creat Clearance w eGFR 31.78 Random Glucose 101 Lactic Acid 2.1 H Calcium 9.2 Total Bilirubin 0.3 D AST 34 ALT 29 Alkaline Phosphatase 85 Creatine Kinase 294 H Creatine Kinase Index 0.6 CK-MB (CK-2) 1.822 Total Protein 7.4 Albumin 3.3 L Urine Color Urine Appearance Urine pH Ur Specific Winifred Urine Protein Urine Glucose (UA) Urine Ketones Urine Blood Urine Nitrite Urine Bilirubin Urine Urobilinogen Ur Leukocyte Esterase Urine WBC (Auto) Urine RBC (Auto) Ur Epithelial Cells Urine Mucus 3 Urine Color Yellow 07/24/17 20:48 Urine Appearance Slcloudy 07/24/17 20:48 Urine pH 5.0 (5.0-8.0) D 07/24/17 20:48 Ur Specific Winifred 1.023 (1.001-1.035) 07/24/17 20:48 Urine Protein 2+ (NEGATIVE) H 07/24/17 20:48 Urine Glucose (UA) Negative (NEGATIVE) 07/24/17 20:48 Urine Ketones Negative (NEGATIVE) 07/24/17 20:48 Urine Blood 2+ (NEGATIVE) H 07/24/17 20:48 Urine Nitrite Negative (NEGATIVE) 07/24/17 20:48 Urine Bilirubin Negative (<2.0 mg/dL) 07/24/17 20:48 Ur Leukocyte Esterase 3+ (NEGATIVE) H D 07/24/17 20:48 Urine WBC (Auto) 104 Urine RBC (Auto) 58 Ur Epithelial Cells Rare /HPF (FEW) 07/24/17 20:48 Urine Mucus Rare 07/24/17 20:[address] head noncontrast IMPRESSION: No evidence of acute intracranial hemorrhage, mass effect, hydrocephalus or calvarial fracture. Generalized, age-related volume loss with mild microvascular ischemic changes in the cerebral white matter. Reported By: Janelle Del Cid DO 07/24/172140 ECG Normal sinus rhythm vent rate 90, QTC [address]/T changes ASSESSMENT/PLAN: 72yF with PMH Anemia, HTN, HLD, lupus on prednisone, renal stones, DVT, GERD, R BKA presented to the ED s/p fall without injury c/o weakness, rigors, chills. Sepsis - as evidenced by fever, elevated WBC, tachycardia - likely due to urinary source s/p stent exchange yesterday - given vanc x 1, will broaden with aztreonam given presence of fever now - chest xray ordered given cough - repeat lactic acid - ID consult HTN/HLD - cont nifedipine, labetalol with hold parameters anemia - cont iron supplementation Lupus - consider holding plaquenil - cont prednisone for now, pt states she takes daily - cont neurontin for pain DVT PPX - heparin SC BID FEN - NS @100cc/hr after 2nd liter bolus if lactic acid WNL - bmp in am - low sodium diet as tolerated Dispo: Pt currently requires further inpatient management of her emergent condition. Visit type - Emergency Visit Emergency Visit: Yes ED Registration Date: 07/24/17 Care time: The patient presented to the Emergency Department on the above date and was hospitalized for further evaluation of their emergent condition. - New Patient This patient is new to me today: Yes Date on this admission: 07/24/17 - Critical Care Critical Care patient: No Hospitalist Screening - Colonoscopy Questionnaire Colonoscopy Questionnaire: Colonoscopy Questionnaire - Patient: 50 - 75 years old and never had a screening colonoscopy: Unknown History of colon or rectal polyps, or CA: No History of IBD, Crohn's disease or UC: No History of abdominal radiation therapy as a child: No - Relative: 1 with colon or rectal CA, or polyps at age 60 or younger: No Colon or rectal CA diagnosed at age 45 or younger: No Multiple relatives with colon or rectal CA: No - Outcome: Screening Result: Negative Screen
[2017-07-24] MEDS ORDERED: ACETAMINOPHEN INJECTION 100 ML IVPB ONE (22:12)
[2017-07-25] MEDS ORDERED: IBUPROFEN 400 MG TABLET (FP) PO ONE ×2 (04:58→05:25)
[2017-07-25] MEDS: GABAPENTIN 300 MG CAPSULE (FP) PO SCH ×2 (06:47→23:45)
[2017-07-25] MEDS: LABETALOL HCL 200 MG TABLET (FP) PO SCH ×3 (06:47→23:45)
[2017-07-25] MEDS: SODIUM CHLORIDE 1,000 ML IV SCH ×3 (06:51→23:44)
[2017-07-25 08:00] LABS: BASO % 0.3 % (0-2.0); EOS % 2.3 % (0-4.5); HEMATOCRIT 31.4 % (32.4-45.2); HEMOGLOBIN 10.2 GM/dL (10.7-15.3); LYMPH % 3.9 % (8-40); MCH 28.7 pg (25.7-33.7); MCHC 32.5 g/dl (32.0-36.0); MEAN CELL VOLUME 88.5 fl (80-96); MEAN PLT VOLUME 8.8 fl (7.5-11.1); MONO % 4.9 % (3.8-10.2); NEUT % 88.6 % (42.8-82.8); PLATELET COUNT 212 K/MM3 (134-434); RBC 3.54 M/mm3 (3.60-5.2); RDW 16.5 % (11.6-15.6); WHITE BLOOD COUNT 19.1 K/mm3 (4.0-10.0)
[2017-07-25 08:38] LABS: CHLORIDE 108 mmol/L (98-107); POTASSIUM 3.9 mmol/L (3.5-5.1); SODIUM 138 mmol/L (136-145)
[2017-07-25 08:51] LABS: ANION GAP 7 (8-16); BLOOD UREA NITROGEN 17 mg/dL (7-18); CALCIUM 7.8 mg/dL (8.5-10.1); CO2 23 mmol/L (21-32); CREATININE 1.2 mg/dL (0.55-1.02); GLUCOSE,RANDOM 98 mg/dL (74-106); PHOSPHOROUS 2.1 mg/dL (2.5-4.9)
[2017-07-25] MEDS ORDERED: PT OWN MED DRAWER 7, Y5N ONE ×3 (09:12→17:27)
[2017-07-25] MEDS: NIFEdipine E.R 60 MG TABLET (UD) PO SCH ×2 (09:16→23:45)
[2017-07-25] MEDS: FERROUS SO4 325 MG TABLET (FP) PO SCH (09:16)
[2017-07-25] MEDS: VITAMIN B COMPLEX W/C COMBO TABLET (FP) PO SCH (09:16)
[2017-07-25] MEDS: CALCIUM 500MG/VIT-D 200 UNITS COMBO TABLET (FP) PO SCH (09:16)
[2017-07-25] MEDS: predniSONE 5 MG TABLET (UD) PO SCH (09:16)
[2017-07-25] MEDS: HEPARIN NA (PORCINE) 5,000 UNITS/ML 1ML VIAL SQ SCH ×2 (09:16→23:45)
--- NOTE | 2017-07-25 09:54 | EKG ---
Test Reason : Blood Pressure : / mmHG Vent. Rate : 090 BPM Atrial Rate : 090 BPM P-R Int : 140 ms QRS Dur : 084 ms QT Int : 340 ms P-R-T Axes : 053 038 054 degrees QTc Int : 415 ms NORMAL SINUS RHYTHM NORMAL ECG WHEN COMPARED WITH ECG OF 12-APR-2017 23:00, NO SIGNIFICANT CHANGE WAS FOUND Confirmed by ISMAEL HYMAN MD ([id number]) on 07/25/2017 9:54:39 AM Referred By: Confirmed By:ISMAEL HYMAN MD
[2017-07-25] MEDS: HYDROXYCHLOROQUINE SO4 200 MG TABLET (FP) PO SCH (10:16)
--- NOTE | 2017-07-25 12:16 | PN ---
Progress Note, Physician Chief Complaint: Mrs Trent says she is feeling a little better today. Still with fatigue and general malaise. No cp, sob, n/v. - Current Medication List Current Medications: Active Medications Acetaminophen (Tylenol -) 650 mg PO Q6H PRN PRN Reason: PAIN OR FEVER Calcium Carbonate/Cholecalciferol (Os-Ryan 500+D -) 1 tab PO DAILY [facility] Last Admin: 07/25/17 09:16 Dose: 1 tab Ferrous Sulfate (Feosol -) 325 mg PO DAILY [facility] Last Admin: 07/25/17 09:16 Dose: 325 mg Gabapentin (Neurontin -) 300 mg PO AM [facility] Last Admin: 07/25/17 06:47 Dose: 300 mg Gabapentin (Neurontin -) 600 mg PO HS [facility] Heparin Sodium (Porcine) (Heparin -) 5,000 unit SQ BID [facility] Last Admin: 07/25/17 09:16 Dose: 5,000 unit Hydroxychloroquine Sulfate (Plaquenil -) 200 mg PO DAILY [facility] Last Admin: 07/25/17 10:16 Dose: 200 mg Sodium Chloride (Normal Saline -) 1,000 mls @ 125 mls/hr IV ASDIR [facility] Last Admin: 07/25/17 06:51 Dose: 125 mls/hr Labetalol HCl (Normodyne -) 200 mg PO TID [facility] Last Admin: 07/25/17 06:47 Dose: 200 mg Lactobacillus Acidophilus (Bacid -) 1 tab PO DAILY [facility] Multivitamins (Total B With C -) 1 each PO DAILY [facility] Last Admin: 07/25/17 09:16 Dose: 1 each Nifedipine (Procardia Xl -) 60 mg PO BID [facility] Last Admin: 07/25/17 09:16 Dose: 60 mg Prednisone (Deltasone -) 5 mg PO DAILY [facility] Last Admin: 07/25/17 09:16 Dose: 5 mg - Objective Vital Signs: Vital Signs Temperature 36.8 C 07/25/17 09:00 Pulse Rate 74 07/25/17 09:00 Respiratory Rate 18 07/25/17 09:00 Blood Pressure 108/62 07/25/17 09:00 O2 Sat by Pulse Oximetry (%) 95 07/25/17 09:00 Constitutional: Yes: Well Nourished, No Distress, Calm Cardiovascular: Yes: Regular Rate and Rhythm. No: Gallop, Murmur, Rub Respiratory: Yes: Regular, CTA Bilaterally. No: Rales, Rhonchi, Wheezes Gastrointestinal: Yes: Normal Bowel Sounds, Soft. No: Distention, Tenderness Extremities: Yes: WNL Edema: No Labs: CBC, BMP 07/25/17 07:35 07/25/17 07:35 Problem List - Problems (1) Sepsis Assessment/Plan: -concern secondary to post stent UTI/pyelonephritis -continue hydration -continue aztreonam -ID following Code(s): A41.9 - SEPSIS, UNSPECIFIED ORGANISM Qualifiers: Sepsis type: sepsis due to unspecified organism Qualified Code(s): A41.9 - Sepsis, unspecified organism (2) Pyelonephritis Assessment/Plan: -continue aztreonam per ID recommendations -follow up blood and urine cultures Code(s): N12 - TUBULO-INTERSTITIAL NEPHRITIS, NOT SPCF ACUTE OR CHRONIC (3) Acute on chronic renal failure Assessment/Plan: -improving -continue hydration Code(s): N17.9 - ACUTE KIDNEY FAILURE, UNSPECIFIED; N18.9 - CHRONIC KIDNEY DISEASE, UNSPECIFIED Qualifiers: Acute renal failure type: unspecified Chronic kidney disease stage: unspecified stage Qualified Code(s): N17.9 - Acute kidney failure, unspecified ; N18.9 - Chronic kidney disease, unspecified; N18.9 - Chronic kidney disease, unspecified (4) HTN (hypertension) Assessment/Plan: -well controlled -continue procardia and labetalol Code(s): I10 - ESSENTIAL (PRIMARY) HYPERTENSION (5) Lupus (systemic lupus erythematosus) Assessment/Plan: -continue prednisone and plaquenil -reason for ureter stent Code(s): M32.9 - SYSTEMIC LUPUS ERYTHEMATOSUS, UNSPECIFIED
--- NOTE | 2017-07-25 12:41 | CON.GU ---
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 She had her chronic indwelling ureteral stent replaced on 07/23/17. She reports that she fell at home on 07/24/17. She is brought to the hospital . She is experiencing stent colic, as she has for months. - History Source History Provided By: Patient - Past Medical History Gastrointestinal: Yes: GERD Renal/: Yes: Other (renal obstruction) ...: No Rheumatology: Yes: Lupus, Vasculitis (chronic), Other (Bachets disease) - Past Surgical History Past Surgical History: Yes: Amputation (R AKA) - Alcohol/Substance Use Hx Alcohol Use: No - Smoking History Smoking history: Former smoker Have you smoked in the past 12 months: No Aproximately how many cigarettes per day: 0 If you are a former smoker, when did you quit?: 1979 - Social History ADL: Independent History of Recent Travel: No Home Medications - Allergies Allergies/Adverse Reactions: Allergies Allergy/AdvReac Type Severity Reaction Status Date / Time codeine [Codeine] Allergy Hives Verified 07/24/17 16:50 Penicillins Allergy Hives Verified 07/24/17 16:50 lactose AdvReac Verified 07/24/17 16:50 - Home Medications Home Medications: Ambulatory Orders Hydroxychloroquine Sulfate [Plaquenil] 200 mg PO DAILY 10/20/15 Nifedipine [Procardia Xl] 60 mg PO BID 10/20/15 predniSONE [Deltasone -] 5 mg PO ASDIR 10/20/15 Acetaminophen [Tylenol .Extra-Strength -] 1,000 mg PO Q6H PRN 11/20/15 Ryan/D3/Mag11/Zinc/Epic Prelude Analyst/Gustabo/Bor [Caltrate 600+D Plus Tablet] 1 each PO DAILY Iron,Carbonyl [Feosol] 65 mg PO DAILY 11/20/15 Vitamin B Complex [B Complex # 1] 1 each PO DAILY 11/20/15 Gabapentin [Neurontin -] 300 mg PO AM capsule 04/13/17 Gabapentin [Neurontin -] 600 mg PO HS capsule 04/13/17 Labetalol HCl 200 mg PO TID 07/22/17 Sulfamethoxazole/Trimethoprim [Bactrim Ds -] 1 tab PO BID #14 tablet 07/23/17 Review of Systems - Review of Systems Constitutional: reports: Chills, Fever, Weakness Genitourinary: reports: Dysuria, Pain Physical Exam- Vital Signs: Vital Signs Temperature 98.2 F 07/25/17 09:00 Pulse Rate 74 07/25/17 09:00 Respiratory Rate 18 07/25/17 09:00 Blood Pressure 108/62 07/25/17 09:00 O2 Sat by Pulse Oximetry (%) 95 07/25/17 09:00 Renal/: No: Bladder Distention, CVA Tenderness - Left, CVA Tenderness - Right , Pena Present, Hematuria, Incontinence Labs: CBC, BMP 07/25/17 07:35 07/25/17 07:35 Problem List - Problems (1) Lupus (systemic lupus erythematosus) Code(s): M32.9 - SYSTEMIC LUPUS ERYTHEMATOSUS, UNSPECIFIED (2) Ureteral obstruction, right Assessment/Plan: stent is changed. possible post cysto UTI, awaiting urine culture. Code(s): N13.5 - CROSSING VESSEL AND STRICTURE OF URETER W/O HYDRONEPHROSIS
--- NOTE | 2017-07-25 13:02 | CON.ID ---
Consult Consult Specialty:: infectious diseases Referred by:: Reason for Consultation:: fall r/o uti,weakness - History of Present Illness Chief Complaint: weakness History of Present Illness: 72 year old female with a significant past medical history of lupus on prednisone, renal stones s/p ureteral stent admitted s/p fall last night, unable to get up, laid on floor x 7 hours until son found her this am. Denies injury s/p fall. Pt is s/p R ureteral stent exchange yesterday. Upon exam pt with rigors and chills. Also noted with nonproductive cough. according to the patient she did not pass out but slipped and fell when she was going to the wheel chair. currently she still feels very weak patient is very immunocompromised because of her condition and being on steroids she does not look to be in any distress at the moment - History Source History Provided By: Patient Limitations to Obtaining History: No Limitations - Past Medical History Gastrointestinal: Yes: GERD Renal/: Yes: Other (renal obstruction) ...: No Rheumatology: Yes: Lupus, Vasculitis (chronic), Other (Bachets disease) - Past Surgical History Past Surgical History: Yes: Amputation (R AKA) - Alcohol/Substance Use Hx Alcohol Use: No - Smoking History Smoking history: Former smoker Have you smoked in the past 12 months: No Aproximately how many cigarettes per day: 0 If you are a former smoker, when did you quit?: 1979 - Social History ADL: Independent History of Recent Travel: No Home Medications - Allergies Allergies/Adverse Reactions: Allergies Allergy/AdvReac Type Severity Reaction Status Date / Time codeine [Codeine] Allergy Hives Verified 07/24/17 16:50 Penicillins Allergy Hives Verified 07/24/17 16:50 lactose AdvReac Verified 07/24/17 16:50 - Home Medications Home Medications: Ambulatory Orders Hydroxychloroquine Sulfate [Plaquenil] 200 mg PO DAILY 10/20/15 Nifedipine [Procardia Xl] 60 mg PO BID 10/20/15 predniSONE [Deltasone -] 5 mg PO ASDIR 10/20/15 Acetaminophen [Tylenol .Extra-Strength -] 1,000 mg PO Q6H PRN 11/20/15 Ryan/D3/Mag11/Zinc/Jet Engine Mechanic/Gustabo/Bor [Caltrate 600+D Plus Tablet] 1 each PO DAILY Iron,Carbonyl [Feosol] 65 mg PO DAILY 11/20/15 Vitamin B Complex [B Complex # 1] 1 each PO DAILY 11/20/15 Gabapentin [Neurontin -] 300 mg PO AM capsule 04/13/17 Gabapentin [Neurontin -] 600 mg PO HS capsule 04/13/17 Labetalol HCl 200 mg PO TID 07/22/17 Sulfamethoxazole/Trimethoprim [Bactrim Ds -] 1 tab PO BID #14 tablet 07/23/17 Review of Systems - Review of Systems Constitutional: reports: Fever, Weakness, Other (chills) Cardiovascular: reports: No Symptoms Respiratory: reports: No Symptoms Gastrointestinal: reports: No Symptoms Genitourinary: reports: No Symptoms Musculoskeletal: reports: Muscle Weakness Integumentary: reports: No Symptoms Neurological: reports: No Symptoms Endocrine: reports: No Symptoms Hematology/Lymphatic: reports: No Symptoms Psychiatric: reports: No Symptoms Physical Exam Vital Signs: Vital Signs Temperature 98.2 F 07/25/17 09:00 Pulse Rate 74 07/25/17 09:00 Respiratory Rate 18 07/25/17 09:00 Blood Pressure 108/62 07/25/17 09:00 O2 Sat by Pulse Oximetry (%) 95 07/25/17 09:00 Constitutional: Yes: Well Nourished, No Distress, Calm Eyes: Yes: Conjunctiva Clear HENT: Yes: Atraumatic Cardiovascular: Yes: Regular Rate and Rhythm, S1, S2 Respiratory: Yes: Regular, CTA Bilaterally Gastrointestinal: Yes: Normal Bowel Sounds, Soft Musculoskeletal: Yes: Other Extremities: Yes: Amputation (rt leg), Other (rt stump looks good) Integumentary: Yes: WNL Neurological: Yes: Alert, Oriented Psychiatric: Yes: Alert, Oriented Labs: CBC, BMP 07/25/17 07:35 07/25/17 07:35 Imaging - Results Chest X-ray: Report Reviewed, Image Reviewed Cat Scan: Report Reviewed, Image Reviewed Assessment/Plan Problem List - Problems (1) Sepsis Code(s): A41.9 - SEPSIS, UNSPECIFIED ORGANISM Qualifiers: Sepsis type: sepsis due to unspecified organism Qualified Code(s): A41.9 - Sepsis, unspecified organism (2) Pyelonephritis Code(s): N12 - TUBULO-INTERSTITIAL NEPHRITIS, NOT SPCF ACUTE OR CHRONIC (3) Acute on chronic renal failure Code(s): N17.9 - ACUTE KIDNEY FAILURE, UNSPECIFIED; N18.9 - CHRONIC KIDNEY DISEASE, UNSPECIFIED Qualifiers: Acute renal failure type: unspecified Chronic kidney disease stage: unspecified stage Qualified Code(s): N17.9 - Acute kidney failure, unspecified ; N18.9 - Chronic kidney disease, unspecified; N18.9 - Chronic kidney disease, unspecified (4) HTN (hypertension) Code(s): I10 - ESSENTIAL (PRIMARY) HYPERTENSION (5) Lupus (systemic lupus erythematosus) Code(s): M32.9 - SYSTEMIC LUPUS ERYTHEMATOSUS, UNSPECIFIED plan continue azteonam close monitor of wbc might need a ct scan of abdomen await for all cx hydration rest as per primary team
[2017-07-25] MEDS: LACTOBACILLUS ACIDOPHILUS 1 CAP PO SCH (13:03)
[2017-07-25] MEDS: AZTREONAM 1 GM in DEXTROSE 5%-WATER - 50 ML IVPB SCH ×2 (15:42→17:32)
[2017-07-25] MEDS: ACETAMINOPHEN 500 MG TABLET (FP) PO PRN (20:20)
[2017-07-26] MEDS ORDERED: PT OWN MED DRAWER 7, Y5N ONE ×6 (01:07→18:18)
[2017-07-26] MEDS: AZTREONAM 1 GM in DEXTROSE 5%-WATER - 50 ML IVPB SCH ×3 (01:41→18:38)
[2017-07-26] MEDS: GABAPENTIN 300 MG CAPSULE (FP) PO SCH ×2 (06:14→22:56)
[2017-07-26] MEDS: ACETAMINOPHEN 500 MG TABLET (FP) PO PRN ×2 (06:14→22:57)
[2017-07-26] MEDS: LABETALOL HCL 200 MG TABLET (FP) PO SCH ×3 (06:15→22:56)
[2017-07-26 08:05] LABS: BASO % 0.3 % (0-2.0); EOS % 3.4 % (0-4.5); HEMATOCRIT 30.8 % (32.4-45.2); HEMOGLOBIN 10.2 GM/dL (10.7-15.3); LYMPH % 9.5 % (8-40); MCH 29.4 pg (25.7-33.7); MCHC 33.1 g/dl (32.0-36.0); MEAN CELL VOLUME 88.9 fl (80-96); MEAN PLT VOLUME 9.1 fl (7.5-11.1); MONO % 6.2 % (3.8-10.2); NEUT % 80.6 % (42.8-82.8); PLATELET COUNT 209 K/MM3 (134-434); RBC 3.47 M/mm3 (3.60-5.2); RDW 16.2 % (11.6-15.6); WHITE BLOOD COUNT 10.3 K/mm3 (4.0-10.0)
[2017-07-26 08:28] LABS: ANION GAP 9 (8-16); BLOOD UREA NITROGEN 13 mg/dL (7-18); CHLORIDE 110 mmol/L (98-107); CO2 21 mmol/L (21-32); GLUCOSE,RANDOM 93 mg/dL (74-106); MAGNESIUM 2.2 mg/dL (1.8-2.4); PHOSPHOROUS 2.1 mg/dL (2.5-4.9); POTASSIUM 3.9 mmol/L (3.5-5.1); SODIUM 140 mmol/L (136-145)
[2017-07-26] MEDS: VITAMIN B COMPLEX W/C COMBO TABLET (FP) PO SCH (09:23)
[2017-07-26] MEDS: CALCIUM 500MG/VIT-D 200 UNITS COMBO TABLET (FP) PO SCH (09:23)
[2017-07-26] MEDS: predniSONE 5 MG TABLET (UD) PO SCH (09:23)
[2017-07-26] MEDS: HEPARIN NA (PORCINE) 5,000 UNITS/ML 1ML VIAL SQ SCH ×2 (09:23→22:56)
[2017-07-26] MEDS: LACTOBACILLUS ACIDOPHILUS 1 CAP PO SCH (09:23)
[2017-07-26] MEDS: NIFEdipine E.R 60 MG TABLET (UD) PO SCH ×2 (09:23→22:56)
[2017-07-26] MEDS: FERROUS SO4 325 MG TABLET (FP) PO SCH (09:23)
[2017-07-26] MEDS: HYDROXYCHLOROQUINE SO4 200 MG TABLET (FP) PO SCH (09:24)
--- NOTE | 2017-07-26 10:44 | PN ---
Progress Note (short form) - Note Progress Note: patient is feeling much better. her WBC has come down but she is still having fevers continue abx. Problem List - Problems (1) Lupus (systemic lupus erythematosus) Code(s): M32.9 - SYSTEMIC LUPUS ERYTHEMATOSUS, UNSPECIFIED (2) Ureteral obstruction, right Code(s): N13.5 - CROSSING VESSEL AND STRICTURE OF URETER W/O HYDRONEPHROSIS
--- NOTE | 2017-07-26 12:20 | PN ---
Progress Note, Physician History of Present Illness: Pt seen and examined. Events noted, labs reviewed. She states she feels better. No longer has chills. Tmax 101.4F but afebrile this am. Denies any specific complaints. - Current Medication List Current Medications: Active Medications Acetaminophen (Tylenol -) 650 mg PO Q6H PRN PRN Reason: PAIN OR FEVER Last Admin: 07/26/17 06:14 Dose: 650 mg Calcium Carbonate/Cholecalciferol (Os-Ryan 500+D -) 1 tab PO DAILY [facility] Last Admin: 07/26/17 09:23 Dose: 1 tab Ferrous Sulfate (Feosol -) 325 mg PO DAILY [facility] Last Admin: 07/26/17 09:23 Dose: 325 mg Gabapentin (Neurontin -) 300 mg PO AM [facility] Last Admin: 07/26/17 06:14 Dose: 300 mg Gabapentin (Neurontin -) 600 mg PO HS [facility] Last Admin: 07/25/17 23:45 Dose: 600 mg Heparin Sodium (Porcine) (Heparin -) 5,000 unit SQ BID [facility] Last Admin: 07/26/17 09:23 Dose: 5,000 unit Hydroxychloroquine Sulfate (Plaquenil -) 200 mg PO DAILY [facility] Last Admin: 07/26/17 09:24 Dose: 200 mg Sodium Chloride (Normal Saline -) 1,000 mls @ 125 mls/hr IV ASDIR [facility] Last Admin: 07/25/17 23:44 Dose: 125 mls/hr Aztreonam 1 gm/ Dextrose 50 mls @ 100 mls/hr IVPB Q8H-IV [facility] PRN Reason: Protocol Last Admin: 07/26/17 09:22 Dose: 100 mls/hr Labetalol HCl (Normodyne -) 200 mg PO TID [facility] Last Admin: 07/26/17 06:15 Dose: 200 mg Lactobacillus Acidophilus (Bacid -) 1 tab PO DAILY [facility] Last Admin: 07/26/17 09:23 Dose: 1 tab Multivitamins (Total B With C -) 1 each PO DAILY [facility] Last Admin: 07/26/17 09:23 Dose: 1 each Nifedipine (Procardia Xl -) 60 mg PO BID [facility] Last Admin: 07/26/17 09:23 Dose: 60 mg Prednisone (Deltasone -) 5 mg PO DAILY [facility] Last Admin: 03/31/18 09:23 Dose: 5 mg - Objective Vital Signs: Vital Signs Temperature 98.7 F 07/26/17 09:00 Pulse Rate 76 07/26/17 09:00 Respiratory Rate 20 07/26/17 09:00 Blood Pressure 110/78 07/26/17 09:00 O2 Sat by Pulse Oximetry (%) 96 07/25/17 21:00 Constitutional: Yes: No Distress, Calm Cardiovascular: Yes: Regular Rate and Rhythm Respiratory: Yes: CTA Bilaterally Gastrointestinal: Yes: Normal Bowel Sounds, Soft Genitourinary: Yes: Other (mild suprapubic tenderness) Musculoskeletal: Yes: WNL Extremities: Yes: Amputation (Rt BKA healed) Neurological: Yes: Alert, Oriented Labs: CBC, BMP 07/26/17 07:00 07/26/17 07:00 Microbiology 07/24/17 20:48 Urine - Urine Clean Catch Urine Culture - Preliminary Pending Organism 07/24/17 18:50 Blood - Peripheral Venous Blood Culture - Preliminary NO GROWTH OBTAINED AFTER 24 HOURS, INCUBATION TO CONTINUE FOR 4 DAYS. 07/24/17 18:50 Blood - Peripheral Venous Blood Culture - Preliminary NO GROWTH OBTAINED AFTER 24 HOURS, INCUBATION TO CONTINUE FOR 4 DAYS. Problem List - Problems (1) Acute on chronic renal failure Code(s): N17.9 - ACUTE KIDNEY FAILURE, UNSPECIFIED; N18.9 - CHRONIC KIDNEY DISEASE, UNSPECIFIED Qualifiers: Acute renal failure type: unspecified Chronic kidney disease stage: unspecified stage Qualified Code(s): N17.9 - Acute kidney failure, unspecified ; N18.9 - Chronic kidney disease, unspecified; N18.9 - Chronic kidney disease, unspecified (2) Pyelonephritis Code(s): N12 - TUBULO-INTERSTITIAL NEPHRITIS, NOT SPCF ACUTE OR CHRONIC (3) Urinary tract infection Code(s): N39.0 - URINARY TRACT INFECTION, SITE NOT SPECIFIED Qualifiers: Urinary tract infection type: site unspecified Hematuria presence: with hematuria Qualified Code(s): N39.0 - Urinary tract infection, site not specified; R31.9 - Hematuria, unspecified; R31.9 - Hematuria, unspecified (4) Amputated right leg Code(s): Z89.611 - ACQUIRED ABSENCE OF RIGHT LEG ABOVE KNEE (5) HTN (hypertension) Code(s): I10 - ESSENTIAL (PRIMARY) HYPERTENSION (6) Lupus (systemic lupus erythematosus) Code(s): M32.9 - SYSTEMIC LUPUS ERYTHEMATOSUS, UNSPECIFIED (7) Ureteral obstruction, right Code(s): N13.5 - CROSSING VESSEL AND STRICTURE OF URETER W/O HYDRONEPHROSIS Assessment/Plan 72 y.o. female with PMH of Lupus, Rt BKA, nephrolithiasis, Rt hydronephrosis s/ p Rt ureteral stent placement recently presenting s/p fall with fever, elevated creatinine, and leukocytosis. -- wbc trending down, pt afebrile currently -- continue Aztreonam -- f/u urine culture result -- monitor temps
[2017-07-26] MEDS ORDERED: NAPH,MB-DB/K PH,MBDB POWDER PACKET PO ONE (12:53)
[2017-07-26] MEDS ORDERED: SODIUM CHLORIDE 1,000 ML IV SCH (12:54)
--- NOTE | 2017-07-26 13:03 | PN ---
Physical Exam: SUBJECTIVE: Patient seen and examined. Afebrile this am. reports no bm in 4 days. OBJECTIVE: Vital Signs Period Temp Pulse Resp BP Sys/[place] Pulse Ox Last 24 Hr 97.4 F-101.4 F 76-91 20-20 110-148/51-78 96 PE Neuro: alert, awake, cn 2-12 intact Pulm: CTAB CV: s1 s2 rrr no mrg Abd: s nt nd + bs Ext: L lower ext erythema, tenderness, warmth to palpation, R BKA Laboratory Results - last 24 hr 07/26/17 07/26/17 07:00 07:00 WBC 10.3 H D RBC 3.47 L Hgb 10.2 L Hct 30.8 L MCV 88.9 MCH 29.4 MCHC 33.1 RDW 16.2 H Plt Count 209 MPV 9.1 Neutrophils % 80.6 Lymphocytes % 9.5 D Monocytes % 6.2 Eosinophils % 3.4 Basophils % 0.3 Sodium 140 Potassium 3.9 Chloride 110 H Carbon Dioxide 21 Anion Gap 9 BUN 13 Creatinine 1.0 Random Glucose 93 Calcium 8.0 L Phosphorus 2.1 L Magnesium 2.2 Active Medications Generic Name Dose Route Start Last Admin Trade Name Freq PRN Reason Stop Dose Admin Acetaminophen 650 mg 07/24/17 22:51 07/26/17 06:14 Tylenol - PO 650 mg Q6H PRN Administration PAIN OR FEVER Calcium Carbonate/Cholecalciferol 1 tab 07/25/17 10:00 07/26/17 09:23 Os-Ryan 500+D - PO 1 tab DAILY [facility] Administration Ferrous Sulfate 325 mg 07/25/17 10:00 07/26/17 09:23 Feosol - PO 325 mg DAILY [facility] Administration Gabapentin 300 mg 07/25/17 07:00 07/26/17 06:14 Neurontin - PO 300 mg AM [facility] Administration Gabapentin 600 mg 07/25/17 22:00 07/25/17 23:45 Neurontin - PO 600 mg HS [facility] Administration Heparin Sodium (Porcine) 5,000 unit 07/25/17 10:00 07/26/17 09:23 Heparin - SQ 5,000 unit BID [facility] Administration Hydroxychloroquine Sulfate 200 mg 07/25/17 10:00 07/26/17 09:24 Plaquenil - PO 200 mg DAILY [facility] Administration Aztreonam 1 gm/ Dextrose 50 mls @ 100 mls/hr 07/25/17 13:15 07/26/17 09:22 IVPB 100 mls/hr Q8H-IV [facility] Administration Protocol Sodium Chloride 1,000 mls @ 75 mls/hr 07/26/17 13:00 Normal Saline - IV ASDIR [facility] Labetalol HCl 200 mg 07/25/17 06:00 07/26/17 06:15 Normodyne - PO 200 mg TID [facility] Administration Lactobacillus Acidophilus 1 tab 07/25/17 12:30 07/26/17 09:23 Bacid - PO 1 tab DAILY [facility] Administration Multivitamins 1 each 07/25/17 10:00 07/26/17 09:23 Total B With C - PO 1 each DAILY [facility] Administration Nifedipine 60 mg 07/25/17 10:00 07/26/17 09:23 Procardia Xl - PO 60 mg BID [facility] Administration Potassium Phos/Sodium Phos 2 packet 07/26/17 12:53 Phos-Nak Packet - PO 07/26/17 12:54 ONCE ONE Prednisone 5 mg 07/25/17 10:00 07/26/17 09:23 Deltasone - PO 5 mg DAILY [facility] Administration Microbiology 07/24/17 20:48 Urine Culture - Preliminary Urine - Urine Clean Catch Pending Organism 07/24/17 18:50 Blood Culture - Preliminary Blood - Peripheral Venous NO GROWTH OBTAINED AFTER 24 HOURS, INCUBATION TO CONTINUE FOR 4 DAYS. 07/24/17 18:50 Blood Culture - Preliminary Blood - Peripheral Venous NO GROWTH OBTAINED AFTER 24 HOURS, INCUBATION TO CONTINUE FOR 4 DAYS. Assessment: 72 year old female with pmhx of lupus on prednisone, renal stones s/ p ureteral stent, anemia, HTN, HLD, GERD, DVT admitted s/p fall, sepsis, who presented to the ED s/p fall, rigors and chills. Plan: 1. Sepsis - Concern secondary to post stent UTI/pyelonephritis - Decrease fluids - Continue aztreonam per ID 2. Pyelonephritis - Abx as above - Blood cx negative, urine pending 3. Acute on chronic renal failure - Improving - Decrease fluids 4. HTN - Controlled - Continue procardia and labetalol 5. Lupus - continue prednisone and plaquenil - Reason for ureter stent Visit type - Emergency Visit Emergency Visit: Yes ED Registration Date: 07/25/17 Care time: The patient presented to the Emergency Department on the above date and was hospitalized for further evaluation of their emergent condition. - New Patient This patient is new to me today: Yes Date on this admission: 07/26/17 - Critical Care Critical Care patient: No
[2017-07-26] MEDS: SODIUM CHLORIDE 1,000 ML IV SCH (15:02)
[2017-07-26] MEDS ORDERED: MAGNESIUM HYDROX 2400MG/30ML ORAL SUSPENSION 30 ML CUP PO ONE (18:45)
[2017-07-26] MEDS ORDERED: RANITIDINE HCL 150 MG TABLET (FP) PO ONE (18:45)
[2017-07-26] MEDS: POLYETHYLENE GLYCOL 3350 119 GM BTL PO SCH (20:31)
[2017-07-27] MEDS ORDERED: PT OWN MED DRAWER 7, Y5N ONE ×3 (02:33→17:55)
[2017-07-27] MEDS: AZTREONAM 1 GM in DEXTROSE 5%-WATER - 50 ML IVPB SCH ×3 (03:00→18:08)
[2017-07-27] MEDS: GABAPENTIN 300 MG CAPSULE (FP) PO SCH ×2 (06:37→21:53)
[2017-07-27] MEDS: LABETALOL HCL 200 MG TABLET (FP) PO SCH ×3 (06:37→21:55)
[2017-07-27] MEDS: VITAMIN B COMPLEX W/C COMBO TABLET (FP) PO SCH (09:40)
[2017-07-27] MEDS: predniSONE 5 MG TABLET (UD) PO SCH (09:40)
[2017-07-27] MEDS: LACTOBACILLUS ACIDOPHILUS 1 CAP PO SCH (09:40)
--- NOTE | 2017-07-27 09:40 | PN ---
Progress Note (short form) - Note Progress Note: arelis is feeling better,. Tm100.4 abd soft continue abx, f/u as outpt. Problem List - Problems (1) Lupus (systemic lupus erythematosus) Code(s): M32.9 - SYSTEMIC LUPUS ERYTHEMATOSUS, UNSPECIFIED (2) Ureteral obstruction, right Code(s): N13.5 - CROSSING VESSEL AND STRICTURE OF URETER W/O HYDRONEPHROSIS
[2017-07-27] MEDS: CALCIUM 500MG/VIT-D 200 UNITS COMBO TABLET (FP) PO SCH (09:41)
[2017-07-27] MEDS: NIFEdipine E.R 60 MG TABLET (UD) PO SCH ×2 (09:41→21:55)
[2017-07-27] MEDS: FERROUS SO4 325 MG TABLET (FP) PO SCH (09:41)
[2017-07-27] MEDS: HEPARIN NA (PORCINE) 5,000 UNITS/ML 1ML VIAL SQ SCH ×2 (09:41→21:52)
[2017-07-27] MEDS: POLYETHYLENE GLYCOL 3350 119 GM BTL PO SCH (09:42)
[2017-07-27] MEDS: HYDROXYCHLOROQUINE SO4 200 MG TABLET (FP) PO SCH (09:44)
--- NOTE | 2017-07-27 13:22 | PN ---
Progress Note, Physician Chief Complaint: les has no complaitns she is doing well - Current Medication List Current Medications: Active Medications Acetaminophen (Tylenol -) 650 mg PO Q6H PRN PRN Reason: PAIN OR FEVER Last Admin: 07/26/17 22:57 Dose: 650 mg Calcium Carbonate/Cholecalciferol (Os-Ryan 500+D -) 1 tab PO DAILY [facility] Last Admin: 07/27/17 09:41 Dose: 1 tab Ferrous Sulfate (Feosol -) 325 mg PO DAILY [facility] Last Admin: 07/27/17 09:41 Dose: 325 mg Gabapentin (Neurontin -) 300 mg PO AM [facility] Last Admin: 07/27/17 06:37 Dose: 300 mg Gabapentin (Neurontin -) 600 mg PO HS [facility] Last Admin: 07/26/17 22:56 Dose: 600 mg Heparin Sodium (Porcine) (Heparin -) 5,000 unit SQ BID [facility] Last Admin: 07/27/17 09:41 Dose: 5,000 unit Hydroxychloroquine Sulfate (Plaquenil -) 200 mg PO DAILY [facility] Last Admin: 07/27/17 09:44 Dose: 200 mg Aztreonam 1 gm/ Dextrose 50 mls @ 100 mls/hr IVPB Q8H-IV [facility] PRN Reason: Protocol Last Admin: 07/27/17 09:41 Dose: 100 mls/hr Sodium Chloride (Normal Saline -) 1,000 mls @ 75 mls/hr IV ASDIR [facility] Last Admin: 07/26/17 15:02 Dose: 75 mls/hr Labetalol HCl (Normodyne -) 200 mg PO TID [facility] Last Admin: 07/27/17 06:37 Dose: 200 mg Lactobacillus Acidophilus (Bacid -) 1 tab PO DAILY [facility] Last Admin: 07/27/17 09:40 Dose: 1 tab Multivitamins (Total B With C -) 1 each PO DAILY [facility] Last Admin: 07/27/17 09:40 Dose: 1 each Nifedipine (Procardia Xl -) 60 mg PO BID [facility] Last Admin: 07/27/17 09:41 Dose: 60 mg Polyethylene Glycol (Miralax (For Daily Use) -) 17 gm PO DAILY [facility] Last Admin: 07/27/17 09:42 Dose: Not Given Prednisone (Deltasone -) 5 mg PO DAILY [facility] Last Admin: 07/27/17 09:40 Dose: 5 mg Ranitidine HCl (Zantac -) 150 mg PO DAILY@1600 [facility] - Objective Vital Signs: Vital Signs Temperature 97.7 F 07/27/17 10:09 Pulse Rate 69 07/27/17 10:09 Respiratory Rate 18 07/27/17 10:09 Blood Pressure 144/60 07/27/17 10:09 O2 Sat by Pulse Oximetry (%) 94 L 07/27/17 09:00 Constitutional: Yes: Well Nourished, No Distress, Calm Eyes: Yes: Conjunctiva Clear, EOM Intact HENT: Yes: WNL, Atraumatic, Normocephalic Neck: Yes: WNL, Supple, Trachea Midline Cardiovascular: Yes: WNL, Regular Rate and Rhythm, S1, S2 Respiratory: Yes: Regular, CTA Bilaterally Gastrointestinal: Yes: WNL, Normal Bowel Sounds, Soft Edema: LLE: Trace, RLE: Trace Integumentary: Yes: WNL Neurological: Yes: WNL, Alert, Oriented Labs: CBC, BMP 07/26/17 07:00 07/26/17 07:00 Problem List - Problems (1) Acute on chronic renal failure Assessment/Plan: resolved - c/w same fluid Code(s): N17.9 - ACUTE KIDNEY FAILURE, UNSPECIFIED; N18.9 - CHRONIC KIDNEY DISEASE, UNSPECIFIED Qualifiers: Acute renal failure type: unspecified Chronic kidney disease stage: unspecified stage Qualified Code(s): N17.9 - Acute kidney failure, unspecified ; N18.9 - Chronic kidney disease, unspecified; N18.9 - Chronic kidney disease, unspecified (2) Pyelonephritis Assessment/Plan: Concern secondary to post stent UTI/pyelonephritis - Continue aztreonam per ID wbc trending down Code(s): N12 - TUBULO-INTERSTITIAL NEPHRITIS, NOT SPCF ACUTE OR CHRONIC (3) Sepsis Assessment/Plan: Concern secondary to post stent UTI/pyelonephritis - Continue aztreonam per ID Code(s): A41.9 - SEPSIS, UNSPECIFIED ORGANISM Qualifiers: Sepsis type: sepsis due to unspecified organism Qualified Code(s): A41.9 - Sepsis, unspecified organism (4) HTN (hypertension) Assessment/Plan: Controlled - Continue procardia and labetalol Code(s): I10 - ESSENTIAL (PRIMARY) HYPERTENSION (5) Lupus (systemic lupus erythematosus) Assessment/Plan: continue prednisone and plaquenil - Reason for ureter stent Code(s): M32.9 - SYSTEMIC LUPUS ERYTHEMATOSUS, UNSPECIFIED
--- NOTE | 2017-07-27 15:08 | PN ---
Progress Note, Physician History of Present Illness: Pt with Tmax 100.7F, currently afebrile. No dysuria. - Current Medication List Current Medications: Active Medications Acetaminophen (Tylenol -) 650 mg PO Q6H PRN PRN Reason: PAIN OR FEVER Last Admin: 07/26/17 22:57 Dose: 650 mg Calcium Carbonate/Cholecalciferol (Os-Ryan 500+D -) 1 tab PO DAILY [facility] Last Admin: 07/27/17 09:41 Dose: 1 tab Ferrous Sulfate (Feosol -) 325 mg PO DAILY [facility] Last Admin: 07/27/17 09:41 Dose: 325 mg Gabapentin (Neurontin -) 300 mg PO AM [facility] Last Admin: 07/27/17 06:37 Dose: 300 mg Gabapentin (Neurontin -) 600 mg PO HS [facility] Last Admin: 07/26/17 22:56 Dose: 600 mg Heparin Sodium (Porcine) (Heparin -) 5,000 unit SQ BID [facility] Last Admin: 07/27/17 09:41 Dose: 5,000 unit Hydroxychloroquine Sulfate (Plaquenil -) 200 mg PO DAILY [facility] Last Admin: 07/27/17 09:44 Dose: 200 mg Aztreonam 1 gm/ Dextrose 50 mls @ 100 mls/hr IVPB Q8H-IV [facility] PRN Reason: Protocol Last Admin: 07/27/17 09:41 Dose: 100 mls/hr Sodium Chloride (Normal Saline -) 1,000 mls @ 75 mls/hr IV ASDIR [facility] Last Admin: 07/26/17 15:02 Dose: 75 mls/hr Labetalol HCl (Normodyne -) 200 mg PO TID [facility] Last Admin: 07/27/17 06:37 Dose: 200 mg Lactobacillus Acidophilus (Bacid -) 1 tab PO DAILY [facility] Last Admin: 07/27/17 09:40 Dose: 1 tab Multivitamins (Total B With C -) 1 each PO DAILY [facility] Last Admin: 07/27/17 09:40 Dose: 1 each Nifedipine (Procardia Xl -) 60 mg PO BID [facility] Last Admin: 07/27/17 09:41 Dose: 60 mg Polyethylene Glycol (Miralax (For Daily Use) -) 17 gm PO DAILY [facility] Last Admin: 07/27/17 09:42 Dose: Not Given Prednisone (Deltasone -) 5 mg PO DAILY [facility] Last Admin: 07/27/17 09:40 Dose: 5 mg Ranitidine HCl (Zantac -) 150 mg PO DAILY@1600 [facility] - Objective Vital Signs: Vital Signs Temperature 97.7 F 07/27/17 10:09 Pulse Rate 69 07/27/17 10:09 Respiratory Rate 07/27/17 10:09 Blood Pressure 144/60 07/27/17 10:09 O2 Sat by Pulse Oximetry (%) 94 L 07/27/17 09:00 Constitutional: Yes: No Distress Cardiovascular: Yes: Regular Rate and Rhythm Respiratory: Yes: CTA Bilaterally Gastrointestinal: Yes: Normal Bowel Sounds, Soft Genitourinary: Yes: CVA Tenderness - Right Extremities: Yes: WNL Neurological: Yes: Alert, Oriented Labs: CBC, BMP 07/26/17 07:00 07/26/17 07:00 Microbiology 07/24/17 20:48 Urine - Urine Clean Catch Urine Culture - Final Contaminated: Please Repeat 07/24/17 18:50 Blood - Peripheral Venous Blood Culture - Preliminary NO GROWTH OBTAINED AFTER 48 HOURS, INCUBATION TO CONTINUE FOR 3 DAYS. 07/24/17 18:50 Blood - Peripheral Venous Blood Culture - Preliminary NO GROWTH OBTAINED AFTER 48 HOURS, INCUBATION TO CONTINUE FOR 3 DAYS. Problem List - Problems (1) Acute on chronic renal failure Code(s): N17.9 - ACUTE KIDNEY FAILURE, UNSPECIFIED; N18.9 - CHRONIC KIDNEY DISEASE, UNSPECIFIED Qualifiers: Acute renal failure type: unspecified Chronic kidney disease stage: unspecified stage Qualified Code(s): N17.9 - Acute kidney failure, unspecified ; N18.9 - Chronic kidney disease, unspecified; N18.9 - Chronic kidney disease, unspecified (2) Pyelonephritis Code(s): N12 - TUBULO-INTERSTITIAL NEPHRITIS, NOT SPCF ACUTE OR CHRONIC (3) Urinary tract infection Code(s): N39.0 - URINARY TRACT INFECTION, SITE NOT SPECIFIED Qualifiers: Urinary tract infection type: site unspecified Hematuria presence: with hematuria Qualified Code(s): N39.0 - Urinary tract infection, site not specified; R31.9 - Hematuria, unspecified; R31.9 - Hematuria, unspecified (4) Amputated right leg Code(s): Z89.611 - ACQUIRED ABSENCE OF RIGHT LEG ABOVE KNEE (5) HTN (hypertension) Code(s): I10 - ESSENTIAL (PRIMARY) HYPERTENSION (6) Lupus (systemic lupus erythematosus) Code(s): M32.9 - SYSTEMIC LUPUS ERYTHEMATOSUS, UNSPECIFIED (7) Ureteral obstruction, right Code(s): N13.5 - CROSSING VESSEL AND STRICTURE OF URETER W/O HYDRONEPHROSIS Assessment/Plan 72 y.o. female with PMH of Lupus, Rt BKA, nephrolithiasis, Rt hydronephrosis s/ p Rt ureteral stent placement recently presenting s/p fall with fever, elevated creatinine, and leukocytosis. Pyelonephritis Sepsis -- fevers trending down, wbc now normal -- blood cultures no growth so far -- urine culture contaminated, will repeat -- continue Aztreonam for now -- continue monitor temps
[2017-07-27] MEDS: SODIUM CHLORIDE 1,000 ML IV SCH ×2 (15:30→19:45)
[2017-07-27] MEDS: RANITIDINE HCL 150 MG TABLET (FP) PO SCH (15:33)
[2017-07-27] MEDS ORDERED: MAG HYDROX/AL HYDROX/SIMETH 30 ML UNIT-DOSE CUP PO ONE (20:41)
[2017-07-28] MEDS: AZTREONAM 1 GM in DEXTROSE 5%-WATER - 50 ML IVPB SCH ×3 (01:16→17:24)
[2017-07-28] MEDS: GABAPENTIN 300 MG CAPSULE (FP) PO SCH ×2 (06:14→22:11)
[2017-07-28] MEDS: LABETALOL HCL 200 MG TABLET (FP) PO SCH ×3 (06:14→22:11)
[2017-07-28 08:24] LABS: BASO % 0.9 % (0-2.0); EOS % 2.9 % (0-4.5); HEMOGLOBIN 10.5 GM/dL (10.7-15.3); LYMPH % 28.4 % (8-40); MCHC 32.9 g/dl (32.0-36.0); MEAN CELL VOLUME 88.1 fl (80-96); MEAN PLT VOLUME 8.8 fl (7.5-11.1); MONO % 9.9 % (3.8-10.2); NEUT % 57.9 % (42.8-82.8); PLATELET COUNT 271 K/MM3 (134-434); RBC 3.63 M/mm3 (3.60-5.2); RDW 16.8 % (11.6-15.6); WHITE BLOOD COUNT 8.3 K/mm3 (4.0-10.0)
[2017-07-28 08:40] LABS: CHLORIDE 109 mmol/L (98-107); POTASSIUM 3.8 mmol/L (3.5-5.1); SODIUM 142 mmol/L (136-145)
[2017-07-28 09:10] LABS: ALBUMIN 2.5 g/dl (3.4-5.0); ALK PHOS 215 U/L (45-117); ANION GAP 8 (8-16); BILIRUBIN,TOTAL 0.3 mg/dL (0.2-1.0); BLOOD UREA NITROGEN 11 mg/dL (7-18); CALCIUM 8.5 mg/dL (8.5-10.1); CO2 25 mmol/L (21-32); CREATININE 0.8 mg/dL (0.55-1.02); GLUCOSE,RANDOM 83 mg/dL (74-106); SGOT/AST 106 U/L (15-37); SGPT/ALT 272 U/L (12-78); TOT PROT 6.5 g/dl (6.4-8.2)
[2017-07-28] MEDS ORDERED: PT OWN MED DRAWER 7, Y5N ONE (09:18)
[2017-07-28] MEDS: FERROUS SO4 325 MG TABLET (FP) PO SCH (09:28)
[2017-07-28] MEDS: VITAMIN B COMPLEX W/C COMBO TABLET (FP) PO SCH (09:28)
[2017-07-28] MEDS: predniSONE 5 MG TABLET (UD) PO SCH (09:28)
[2017-07-28] MEDS: CALCIUM 500MG/VIT-D 200 UNITS COMBO TABLET (FP) PO SCH (09:28)
[2017-07-28] MEDS: NIFEdipine E.R 60 MG TABLET (UD) PO SCH ×2 (09:28→22:11)
[2017-07-28] MEDS: HEPARIN NA (PORCINE) 5,000 UNITS/ML 1ML VIAL SQ SCH ×3 (09:28→22:14)
[2017-07-28] MEDS: LACTOBACILLUS ACIDOPHILUS 1 CAP PO SCH (09:28)
[2017-07-28] MEDS: POLYETHYLENE GLYCOL 3350 119 GM BTL PO SCH (09:29)
[2017-07-28] MEDS: HYDROXYCHLOROQUINE SO4 200 MG TABLET (FP) PO SCH (09:29)
--- NOTE | 2017-07-28 14:04 | PN ---
Progress Note, Physician History of Present Illness: patient doing well no issues feels much better - Current Medication List Current Medications: Active Medications Acetaminophen (Tylenol -) 650 mg PO Q6H PRN PRN Reason: PAIN OR FEVER Last Admin: 07/26/17 22:57 Dose: 650 mg Calcium Carbonate/Cholecalciferol (Os-Ryan 500+D -) 1 tab PO DAILY [facility] Last Admin: 07/28/17 09:28 Dose: 1 tab Ferrous Sulfate (Feosol -) 325 mg PO DAILY [facility] Last Admin: 07/28/17 09:28 Dose: 325 mg Gabapentin (Neurontin -) 300 mg PO AM [facility] Last Admin: 07/28/17 06:14 Dose: 300 mg Gabapentin (Neurontin -) 600 mg PO HS [facility] Last Admin: 07/27/17 21:53 Dose: 600 mg Heparin Sodium (Porcine) (Heparin -) 5,000 unit SQ BID [facility] Last Admin: 07/28/17 09:28 Dose: 5,000 unit Hydroxychloroquine Sulfate (Plaquenil -) 200 mg PO DAILY [facility] Last Admin: 07/28/17 09:29 Dose: 200 mg Aztreonam 1 gm/ Dextrose 50 mls @ 100 mls/hr IVPB Q8H-IV [facility] PRN Reason: Protocol Last Admin: 07/28/17 09:27 Dose: 100 mls/hr Sodium Chloride (Normal Saline -) 1,000 mls @ 75 mls/hr IV ASDIR [facility] Last Admin: 07/27/17 19:45 Dose: 75 mls/hr Labetalol HCl (Normodyne -) 200 mg PO TID [facility] Last Admin: 07/28/17 06:14 Dose: 200 mg Lactobacillus Acidophilus (Bacid -) 1 tab PO DAILY [facility] Last Admin: 07/28/17 09:28 Dose: 1 tab Multivitamins (Total B With C -) 1 each PO DAILY [facility] Last Admin: 07/28/17 09:28 Dose: 1 each Nifedipine (Procardia Xl -) 60 mg PO BID [facility] Last Admin: 07/28/17 09:28 Dose: 60 mg Polyethylene Glycol (Miralax (For Daily Use) -) 17 gm PO DAILY [facility] Last Admin: 07/28/17 09:29 Dose: Not Given Prednisone (Deltasone -) 5 mg PO DAILY [facility] Last Admin: 07/28/17 09:28 Dose: 5 mg Ranitidine HCl (Zantac -) 150 mg PO DAILY@1600 [facility] Last Admin: 07/27/17 15:33 Dose: Not Given - Objective Vital Signs: Vital Signs Temperature 98.0 F 07/28/17 09:00 Pulse Rate 74 07/28/17 09:00 Respiratory Rate 18 07/28/17 09:00 Blood Pressure 142/55 07/28/17 09:00 O2 Sat by Pulse Oximetry (%) 98 07/28/17 09:00 Constitutional: Yes: No Distress, Calm Cardiovascular: Yes: Regular Rate and Rhythm Respiratory: Yes: Regular, CTA Bilaterally Gastrointestinal: Yes: Normal Bowel Sounds, Soft Musculoskeletal: Yes: WNL Extremities: Yes: WNL Neurological: Yes: Alert, Oriented Psychiatric: Yes: Alert, Oriented Labs: CBC, BMP 07/28/17 06:30 07/28/17 06:30 Assessment/Plan Problem List - Problems (1) Sepsis Code(s): A41.9 - SEPSIS, UNSPECIFIED ORGANISM Qualifiers: Sepsis type: sepsis due to unspecified organism Qualified Code(s): A41.9 - Sepsis, unspecified organism (2) Pyelonephritis Code(s): N12 - TUBULO-INTERSTITIAL NEPHRITIS, NOT SPCF ACUTE OR CHRONIC (3) Acute on chronic renal failure Code(s): N17.9 - ACUTE KIDNEY FAILURE, UNSPECIFIED; N18.9 - CHRONIC KIDNEY DISEASE, UNSPECIFIED Qualifiers: Acute renal failure type: unspecified Chronic kidney disease stage: unspecified stage Qualified Code(s): N17.9 - Acute kidney failure, unspecified ; N18.9 - Chronic kidney disease, unspecified; N18.9 - Chronic kidney disease, unspecified (4) HTN (hypertension) Code(s): I10 - ESSENTIAL (PRIMARY) HYPERTENSION (5) Lupus (systemic lupus erythematosus) Code(s): M32.9 - SYSTEMIC LUPUS ERYTHEMATOSUS, UNSPECIFIED plan continue azteonam wbc normal awaiting for urine cx rest as per primary
--- NOTE | 2017-07-28 14:13 | PN ---
Progress Note, Physician Chief Complaint: Mrs Trent says she is feeling really good today. No cp, sob, n/v. - Current Medication List Current Medications: Active Medications Acetaminophen (Tylenol -) 650 mg PO Q6H PRN PRN Reason: PAIN OR FEVER Last Admin: 07/26/17 22:57 Dose: 650 mg Calcium Carbonate/Cholecalciferol (Os-Ryan 500+D -) 1 tab PO DAILY [facility] Last Admin: 07/28/17 09:28 Dose: 1 tab Ferrous Sulfate (Feosol -) 325 mg PO DAILY [facility] Last Admin: 07/28/17 09:28 Dose: 325 mg Gabapentin (Neurontin -) 300 mg PO AM [facility] Last Admin: 07/28/17 06:14 Dose: 300 mg Gabapentin (Neurontin -) 600 mg PO HS [facility] Last Admin: 07/27/17 21:53 Dose: 600 mg Heparin Sodium (Porcine) (Heparin -) 5,000 unit SQ BID [facility] Last Admin: 07/28/17 09:28 Dose: 5,000 unit Hydroxychloroquine Sulfate (Plaquenil -) 200 mg PO DAILY [facility] Last Admin: 07/28/17 09:29 Dose: 200 mg Aztreonam 1 gm/ Dextrose 50 mls @ 100 mls/hr IVPB Q8H-IV [facility] PRN Reason: Protocol Last Admin: 07/28/17 09:27 Dose: 100 mls/hr Labetalol HCl (Normodyne -) 200 mg PO TID [facility] Last Admin: 07/28/17 06:14 Dose: 200 mg Lactobacillus Acidophilus (Bacid -) 1 tab PO DAILY [facility] Last Admin: 07/28/17 09:28 Dose: 1 tab Multivitamins (Total B With C -) 1 each PO DAILY [facility] Last Admin: 07/28/17 09:28 Dose: 1 each Nifedipine (Procardia Xl -) 60 mg PO BID [facility] Last Admin: 07/28/17 09:28 Dose: 60 mg Polyethylene Glycol (Miralax (For Daily Use) -) 17 gm PO DAILY [facility] Last Admin: 07/28/17 09:29 Dose: Not Given Prednisone (Deltasone -) 5 mg PO DAILY [facility] Last Admin: 07/28/17 09:28 Dose: 5 mg Ranitidine HCl (Zantac -) 150 mg PO DAILY@1600 [facility] Last Admin: 07/27/17 15:33 Dose: Not Given - Objective Vital Signs: Vital Signs Temperature 36.7 C 07/28/17 09:00 Pulse Rate 74 07/28/17 09:00 Respiratory Rate 18 07/28/17 09:00 Blood Pressure 142/55 07/28/17 09:00 O2 Sat by Pulse Oximetry (%) 98 07/28/17 09:00 Constitutional: Yes: Well Nourished, No Distress, Calm Cardiovascular: Yes: Regular Rate and Rhythm. No: Gallop, Murmur, Rub Respiratory: Yes: Regular, CTA Bilaterally. No: Rales, Rhonchi, Wheezes Gastrointestinal: Yes: Normal Bowel Sounds, Soft. No: Distention, Tenderness Extremities: Yes: WNL Edema: No Labs: CBC, BMP 07/28/17 06:30 07/28/17 06:30 Problem List - Problems (1) Sepsis Code(s): A41.9 - SEPSIS, UNSPECIFIED ORGANISM Qualifiers: Sepsis type: sepsis due to unspecified organism Qualified Code(s): A41.9 - Sepsis, unspecified organism (2) Pyelonephritis Code(s): N12 - TUBULO-INTERSTITIAL NEPHRITIS, NOT SPCF ACUTE OR CHRONIC (3) Acute on chronic renal failure Code(s): N17.9 - ACUTE KIDNEY FAILURE, UNSPECIFIED; N18.9 - CHRONIC KIDNEY DISEASE, UNSPECIFIED Qualifiers: Acute renal failure type: unspecified Chronic kidney disease stage: unspecified stage Qualified Code(s): N17.9 - Acute kidney failure, unspecified ; N18.9 - Chronic kidney disease, unspecified; N18.9 - Chronic kidney disease, unspecified (4) HTN (hypertension) Code(s): I10 - ESSENTIAL (PRIMARY) HYPERTENSION (5) Lupus (systemic lupus erythematosus) Code(s): M32.9 - SYSTEMIC LUPUS ERYTHEMATOSUS, UNSPECIFIED (6) Elevated LFTs Code(s): R79.89 - OTHER SPECIFIED ABNORMAL FINDINGS OF BLOOD CHEMISTRY Assessment/Plan (1) Sepsis Assessment/Plan: -case d/w ID -continue aztreonam -first urine culture contaminated -second urine culture sent and awaiting results Code(s): A41.9 - SEPSIS, UNSPECIFIED ORGANISM Qualifiers: Sepsis type: sepsis due to unspecified organism Qualified Code(s): A41.9 - Sepsis, unspecified organism (2) Pyelonephritis Assessment/Plan: -as above Code(s): N12 - TUBULO-INTERSTITIAL NEPHRITIS, NOT SPCF ACUTE OR CHRONIC (3) Acute on chronic renal failure Assessment/Plan: -resolved -can stop IVF today Code(s): N17.9 - ACUTE KIDNEY FAILURE, UNSPECIFIED; N18.9 - CHRONIC KIDNEY DISEASE, UNSPECIFIED Qualifiers: Acute renal failure type: unspecified Chronic kidney disease stage: unspecified stage Qualified Code(s): N17.9 - Acute kidney failure, unspecified ; N18.9 - Chronic kidney disease, unspecified; N18.9 - Chronic kidney disease, unspecified (4) HTN (hypertension) Assessment/Plan: -well controlled -continue procardia and labetalol Code(s): I10 - ESSENTIAL (PRIMARY) HYPERTENSION (5) Lupus (systemic lupus erythematosus) Assessment/Plan: -continue prednisone and plaquenil -reason for ureter stent Code(s): M32.9 - SYSTEMIC LUPUS ERYTHEMATOSUS, UNSPECIFIED (6) Elevated LFTs -suspect secondary to medications -check abdominal ultrasound -recheck in am
[2017-07-28] MEDS: RANITIDINE HCL 150 MG TABLET (FP) PO SCH (16:57)
[2017-07-29] MEDS: AZTREONAM 1 GM in DEXTROSE 5%-WATER - 50 ML IVPB SCH ×2 (01:04→09:12)
[2017-07-29] MEDS: LABETALOL HCL 200 MG TABLET (FP) PO SCH ×2 (06:07→13:28)
[2017-07-29] MEDS: GABAPENTIN 300 MG CAPSULE (FP) PO SCH (06:07)
[2017-07-29 07:54] LABS: BASO % 0.7 % (0-2.0); EOS % 3.2 % (0-4.5); HEMATOCRIT 31.5 % (32.4-45.2); HEMOGLOBIN 10.5 GM/dL (10.7-15.3); LYMPH % 33.8 % (8-40); MCH 29.1 pg (25.7-33.7); MCHC 33.3 g/dl (32.0-36.0); MEAN CELL VOLUME 87.5 fl (80-96); MEAN PLT VOLUME 8.6 fl (7.5-11.1); MONO % 10.3 % (3.8-10.2); PLATELET COUNT 275 K/MM3 (134-434); RDW 16.5 % (11.6-15.6); WHITE BLOOD COUNT 8.5 K/mm3 (4.0-10.0)
[2017-07-29 08:03] LABS: ALBUMIN 2.5 g/dl (3.4-5.0); ANION GAP 7 (8-16); BILIRUBIN,DIRECT < 0.2 mg/dL (0.0-0.2); BILIRUBIN,TOTAL 0.2 mg/dL (0.2-1.0); BLOOD UREA NITROGEN 12 mg/dL (7-18); CALCIUM 8.6 mg/dL (8.5-10.1); CHLORIDE 107 mmol/L (98-107); CO2 28 mmol/L (21-32); CREATININE 0.9 mg/dL (0.55-1.02); GLUCOSE,RANDOM 84 mg/dL (74-106); MAGNESIUM 2.1 mg/dL (1.8-2.4); POTASSIUM 3.6 mmol/L (3.5-5.1); SGOT/AST 73 U/L (15-37); SGPT/ALT 225 U/L (12-78); SODIUM 142 mmol/L (136-145)
[2017-07-29 08:05] LABS: ALK PHOS 193 U/L (45-117); TOT PROT 6.4 g/dl (6.4-8.2)
[2017-07-29] MEDS ORDERED: PT OWN MED DRAWER 7, Y5N ONE (09:09)
[2017-07-29] MEDS: FERROUS SO4 325 MG TABLET (FP) PO SCH (09:12)
[2017-07-29] MEDS: predniSONE 5 MG TABLET (UD) PO SCH (09:12)
[2017-07-29] MEDS: LACTOBACILLUS ACIDOPHILUS 1 CAP PO SCH (09:12)
[2017-07-29] MEDS: CALCIUM 500MG/VIT-D 200 UNITS COMBO TABLET (FP) PO SCH (09:12)
[2017-07-29] MEDS: VITAMIN B COMPLEX W/C COMBO TABLET (FP) PO SCH (09:12)
[2017-07-29] MEDS: NIFEdipine E.R 60 MG TABLET (UD) PO SCH (09:12)
[2017-07-29] MEDS: POLYETHYLENE GLYCOL 3350 119 GM BTL PO SCH (09:13)
[2017-07-29] MEDS: HEPARIN NA (PORCINE) 5,000 UNITS/ML 1ML VIAL SQ SCH (09:13)
[2017-07-29] MEDS: HYDROXYCHLOROQUINE SO4 200 MG TABLET (FP) PO SCH (09:17)
--- NOTE | 2017-07-29 13:09 | PN ---
Progress Note, Physician History of Present Illness: doing well no issues - Current Medication List Current Medications: Active Medications Acetaminophen (Tylenol -) 650 mg PO Q6H PRN PRN Reason: PAIN OR FEVER Last Admin: 07/26/17 22:57 Dose: 650 mg Calcium Carbonate/Cholecalciferol (Os-Ryan 500+D -) 1 tab PO DAILY [facility] Last Admin: 07/29/17 09:12 Dose: 1 tab Ferrous Sulfate (Feosol -) 325 mg PO DAILY [facility] Last Admin: 07/29/17 09:12 Dose: 325 mg Gabapentin (Neurontin -) 300 mg PO AM [facility] Last Admin: 07/29/17 06:07 Dose: 300 mg Gabapentin (Neurontin -) 600 mg PO HS [facility] Last Admin: 07/28/17 22:11 Dose: 600 mg Heparin Sodium (Porcine) (Heparin -) 5,000 unit SQ BID [facility] Last Admin: 07/29/17 09:13 Dose: 5,000 unit Hydroxychloroquine Sulfate (Plaquenil -) 200 mg PO DAILY [facility] Last Admin: 07/29/17 09:17 Dose: 200 mg Labetalol HCl (Normodyne -) 200 mg PO TID [facility] Last Admin: 07/29/17 06:07 Dose: 200 mg Lactobacillus Acidophilus (Bacid -) 1 tab PO DAILY [facility] Last Admin: 07/29/17 09:12 Dose: 1 cap Multivitamins (Total B With C -) 1 each PO DAILY [facility] Last Admin: 07/29/17 09:12 Dose: 1 each Nifedipine (Procardia Xl -) 60 mg PO BID [facility] Last Admin: 07/29/17 09:12 Dose: 60 mg Polyethylene Glycol (Miralax (For Daily Use) -) 17 gm PO DAILY [facility] Last Admin: 07/29/17 09:13 Dose: Not Given Prednisone (Deltasone -) 5 mg PO DAILY [facility] Last Admin: 07/29/17 09:12 Dose: 5 mg Ranitidine HCl (Zantac -) 150 mg PO DAILY@1600 [facility] Last Admin: 07/28/17 16:57 Dose: 150 mg - Objective Vital Signs: Vital Signs Temperature 98.7 F 07/29/17 09:00 Pulse Rate 74 07/29/17 09:00 Respiratory Rate 20 07/29/17 09:00 Blood Pressure 145/70 07/29/17 09:00 O2 Sat by Pulse Oximetry (%) 95 07/29/17 09:00 Constitutional: Yes: No Distress, Calm Cardiovascular: Yes: Regular Rate and Rhythm Respiratory: Yes: Regular, CTA Bilaterally Gastrointestinal: Yes: Normal Bowel Sounds, Soft Musculoskeletal: Yes: WNL Extremities: Yes: WNL Neurological: Yes: Alert, Oriented Psychiatric: Yes: Alert, Oriented Labs: CBC, BMP 07/29/17 06:00 07/29/17 06:00 Assessment/Plan Problem List - Problems (1) Sepsis Code(s): A41.9 - SEPSIS, UNSPECIFIED ORGANISM Qualifiers: Sepsis type: sepsis due to unspecified organism Qualified Code(s): A41.9 - Sepsis, unspecified organism (2) Pyelonephritis Code(s): N12 - TUBULO-INTERSTITIAL NEPHRITIS, NOT SPCF ACUTE OR CHRONIC (3) Acute on chronic renal failure Code(s): N17.9 - ACUTE KIDNEY FAILURE, UNSPECIFIED; N18.9 - CHRONIC KIDNEY DISEASE, UNSPECIFIED Qualifiers: Acute renal failure type: unspecified Chronic kidney disease stage: unspecified stage Qualified Code(s): N17.9 - Acute kidney failure, unspecified ; N18.9 - Chronic kidney disease, unspecified; N18.9 - Chronic kidney disease, unspecified (4) HTN (hypertension) Code(s): I10 - ESSENTIAL (PRIMARY) HYPERTENSION (5) Lupus (systemic lupus erythematosus) Code(s): M32.9 - SYSTEMIC LUPUS ERYTHEMATOSUS, UNSPECIFIED patients cx report noted plan will stop aztreonam rest continue current mgmt
--- NOTE | 2017-07-29 14:41 | DS ---
Physical Examination Vital Signs: Vital Signs Temperature 36.6 C 07/29/17 13:49 Pulse Rate 72 07/29/17 13:49 Respiratory Rate 20 07/29/17 13:49 Blood Pressure 125/50 07/29/17 13:49 O2 Sat by Pulse Oximetry (%) 95 07/29/17 09:00 Constitutional: Yes: Well Nourished, No Distress, Calm Cardiovascular: Yes: Regular Rate and Rhythm. No: Gallop, Murmur, Rub Respiratory: Yes: Regular, CTA Bilaterally. No: Rales, Rhonchi, Wheezes Gastrointestinal: Yes: Normal Bowel Sounds, Soft. No: Distention, Tenderness Extremities: Yes: Amputation Edema: No Labs: CBC, BMP 07/29/17 06:00 07/29/17 06:00 Discharge Summary Reason For Visit: FALL Current Active Problems Elevated LFTs (Acute) Hospital Course: (1) Sepsis Code(s): A41.9 - SEPSIS, UNSPECIFIED ORGANISM Qualifiers: Sepsis type: sepsis due to unspecified organism Qualified Code(s): A41.9 - Sepsis, unspecified organism (2) Pyelonephritis Code(s): N12 - TUBULO-INTERSTITIAL NEPHRITIS, NOT SPCF ACUTE OR CHRONIC (3) Acute on chronic renal failure Code(s): N17.9 - ACUTE KIDNEY FAILURE, UNSPECIFIED; N18.9 - CHRONIC KIDNEY DISEASE, UNSPECIFIED Qualifiers: Acute renal failure type: unspecified Chronic kidney disease stage: unspecified stage Qualified Code(s): N17.9 - Acute kidney failure, unspecified ; N18.9 - Chronic kidney disease, unspecified; N18.9 - Chronic kidney disease, unspecified (4) HTN (hypertension) Code(s): I10 - ESSENTIAL (PRIMARY) HYPERTENSION (5) Lupus (systemic lupus erythematosus) Code(s): M32.9 - SYSTEMIC LUPUS ERYTHEMATOSUS, UNSPECIFIED (6) Elevated LFTs Code(s): R79.89 - OTHER SPECIFIED ABNORMAL FINDINGS OF BLOOD CHEMISTRY Ms Trent is a very pleasant 72 year old female coming in with sepsis. It appeared to be urinary in nature, she was started on aztreonam. She was also hydrated with IVF secondary to LUICES on CKD. Her renal function returned to baseline. Her urine culture was contaminated and it was resent. Her repeat culture was [id number], this was discussed with ID and felt she did not require further antibiotics since her sepsis cleared and all cultures are negative. She was also found to have elevated LFTs, ultrasound was checked and showed fatty infiltration of the liver which is chronic. Suspect most likely drug related as already improving, continue outpatient follow up. She is safe for discharge home. 33 minutes spent in preparation of this discharge Condition: Good - Instructions Diet, Activity, Other Instructions: resume previous diet and activity Referrals: Yaya Montoya MD [Staff Physician] - 1 Week Isaak Mead MD [Staff Physician] - Disposition: HOME - Home Medications Comprehensive Discharge Medication List: Ambulatory Orders Hydroxychloroquine Sulfate [Plaquenil] 200 mg PO DAILY 10/20/15 Nifedipine [Procardia Xl] 60 mg PO BID 10/20/15 predniSONE [Deltasone -] 5 mg PO ASDIR 10/20/15 Ryan/D3/Mag11/Zinc/[employer] Assistant/[place]/Bor [Caltrate 600+D Plus Tablet] 1 each PO DAILY Iron,Carbonyl [Feosol] 65 mg PO DAILY 11/20/15 Vitamin B Complex [B Complex # 1] 1 each PO DAILY 11/20/15 Gabapentin [Neurontin -] 300 mg PO AM capsule 04/13/17 Gabapentin [Neurontin -] 600 mg PO HS capsule 04/13/17 Labetalol HCl 200 mg PO TID 07/22/17
[2017-07-29] MEDS: RANITIDINE HCL 150 MG TABLET (FP) PO SCH (15:15)
[2017-07-29 17:03] VITALS: BP 147/66; PULSE 71; TEMP 97.9
== END 2017-07-29 19:26 | disposition home or self-care (01) | DRG 862 ==
LOC: JER 16:37 → JERBED 19:01 → J7W 07-25 06:43 → OBSVTOIN 07-25 06:54
PROVIDERS: ADMIT Internal Medicine; ATTEND Internal Medicine
DX: T81.4XXA Infection following a procedure, initial encounter (principal); A41.9 Sepsis, unspecified organism; N17.9 Acute kidney failure, unspecified; N12 Tubulo-interstitial nephritis, not specified as acute or chronic; N39.0 Urinary tract infection, site not specified; D64.9 Anemia, unspecified; E78.5 Hyperlipidemia, unspecified; M32.9 Systemic lupus erythematosus, unspecified; K21.9 Gastro-esophageal reflux disease without esophagitis; R00.0 Tachycardia, unspecified; K76.0 Fatty (change of) liver, not elsewhere classified; I77.6 Arteritis, unspecified; N13.5 Crossing vessel and stricture of ureter without hydronephrosis; I12.9 Hypertensive chronic kidney disease with stage 1 through stage 4 chronic kidney disease, or unspecified chronic kidney disease; N18.9 Chronic kidney disease, unspecified; E83.39 Other disorders of phosphorus metabolism; R79.89 Other specified abnormal findings of blood chemistry; Z87.891 Personal history of nicotine dependence; Y84.9 Medical procedure, unspecified as the cause of abnormal reaction of the patient, or of later complication, without mention of misadventure at the time of the procedure; Y92.9 Unspecified place or not applicable; Z89.511 Acquired absence of right leg below knee; Z86.718 Personal history of other venous thrombosis and embolism; Z87.442 Personal history of urinary calculi
CPT/HCPCS: 36415; 70450-TC; 71045-TC-FY; 76705-TC; 80048; 80053; 80076; 81003; 81015; 82550; 82553; 83605; 83735; 84100; 85025; 87040; 87086; 93005; 93010; 97116-GP; 97161-GP; 99285-25; G0378; J0131; J1644; J7030

== ENCOUNTER 2017-10-10 12:56 | Emergency (ER) | payer BC ==
[2017-10-10 13:19] VITALS: BP 146/66; PULSE 75; TEMP 98; BMI 25.6
--- NOTE | 2017-10-10 13:34 | PDOC ---
History of Present Illness - General Chief Complaint: Headache Stated Complaint: HEADACHE Time Seen by Provider: 10/10/17 13:34 - History of Present Illness Initial Comments: 10/10/17 13:34 Ms. Trent is a 72 yo female w/ pmh of anemia, lupus (s/p R BKA), CAD, GERD, DM , and nephrolithiasis s/p stent who presents for evaluation of severe headache. She reports this started 6 days ago when she walked outside and had eye pain with bright light and subsequently was noted to have a conjunctival hemorrhage per family member. She reports she has had an evolving headache since this time centered on the left eye. The patient denies chest pain, shortness of breath, headache and dizziness. Denies fever, chills, nausea, vomit, diarrhea and constipation. Denies dysuria, frequency, urgency and hematuria. Allergies: Codeine, Penicillin, lactose, ranitidine Past History - Past Medical History Allergies/Adverse Reactions: Allergies Allergy/AdvReac Type Severity Reaction Status Date / Time codeine [Codeine] Allergy Hives Verified 10/10/17 13:14 Penicillins Allergy Hives Verified 10/10/17 13:14 lactose AdvReac Verified 10/10/17 13:14 ranitidine [From Zantac] AdvReac headache Verified 10/10/17 13:14 Home Medications: Ambulatory Orders Hydroxychloroquine Sulfate [Plaquenil] 200 mg PO DAILY 10/20/15 Nifedipine [Procardia Xl] 60 mg PO BID 10/20/15 predniSONE [Deltasone -] 5 mg PO ASDIR 10/20/15 Ryan/D3/Mag11/Zinc/Excavating [employer]or/[place]/Bor [Caltrate 600+D Plus Tablet] 1 each PO DAILY Iron,Carbonyl [Feosol] 65 mg PO DAILY 11/20/15 Vitamin B Complex [B Complex # 1] 1 each PO DAILY 11/20/15 Gabapentin [Neurontin -] 300 mg PO AM capsule 04/13/17 Gabapentin [Neurontin -] 600 mg PO HS capsule 04/13/17 Labetalol HCl 200 mg PO TID 07/22/17 Anemia: Yes (chronic) Asthma: No Cancer: No Cardiac Disorders: Yes (Leg stents) CVA: No COPD: No CHF: No DVT: Yes (by history) Dementia: No Diabetes: No Dialysis: No GI Disorders: Yes (GERD) Disorders: No HTN: Yes Hypercholesterolemia: Yes Kidney Stones: Yes Liver Disease: No Psychiatric Problems: No Seizures: No Thyroid Disease: No Other medical history: RBK A - Surgical History Abdominal Surgery: Yes (10/2015 mass removed-negative) Appendectomy: No Cardiac Surgery: Yes (STENTS OCTOBER 2010 IN LEFT LEG) Cholecystectomy: No Lung Surgery: No Neurologic Surgery: No Orthopedic Surgery: Yes (R BKA (1996)) - Immunization History Immunization Up to Date: Yes - Suicide/Smoking/Psychosocial Hx Smoking Status: No Smoking History: Former smoker Have you smoked in the past 12 months: No Number of Cigarettes Smoked Daily: 0 If you are a former smoker, when did you quit?: 1979 Information on smoking cessation initiated: No Hx Alcohol Use: No Drug/Substance Use Hx: No Substance Use Type: None Hx Substance Use Treatment: No Review of Systems - Review of Systems Comments:: 10/10/17 13:34 GENERAL/CONSTITUTIONAL: No fever or chills. No weakness. HEAD, EYES, EARS, NOSE AND THROAT: +Reported left eye blurry vision. No ear pain or discharge. No sore throat. CARDIOVASCULAR: No chest pain or shortness of breath RESPIRATORY: No cough, wheezing, or hemoptysis. GASTROINTESTINAL: No nausea, vomiting, diarrhea or constipation. GENITOURINARY: No dysuria, frequency, or change in urination. MUSCULOSKELETAL: No joint or muscle swelling or pain. No neck or back pain. SKIN: No rash NEUROLOGIC: +Headache as described. No vertigo, loss of consciousness, or change in strength/sensation. ENDOCRINE: No increased thirst. No abnormal weight change HEMATOLOGIC/LYMPHATIC: No anemia, easy bleeding, or history of blood clots. ALLERGIC/IMMUNOLOGIC: No hives or skin allergy. *Physical Exam - Vital Signs Last Vital Signs Temp Pulse Resp BP Pulse Ox 98.0 F 75 17 146/66 99 10/10/17 13:14 10/10/17 13:14 10/10/17 13:14 10/10/17 13:14 10/10/17 13:14 - Physical Exam Comments: 10/10/17 13:34 GENERAL: Awake, alert, and fully oriented, in no acute distress HEAD: No signs of trauma, normocephalic, atraumatic EYES: PERRLA, EOMI, sclera anicteric, conjunctiva clear ENT: Auricles normal inspection, hearing grossly normal, nares patent, oropharynx clear without exudates. Moist mucosa NECK: Normal ROM, supple, no lymphadenopathy, JVD, or masses LUNGS: No distress, speaks full sentences, clear to auscultation bilaterally HEART: Regular rate and rhythm, normal S1 and S2, no murmurs, rubs or gallops, peripheral pulses normal and equal bilaterally. ABDOMEN: Soft, nontender, normoactive bowel sounds. No guarding, no rebound. No masses EXTREMITIES: Normal inspection, Normal range of motion, no edema. No clubbing or cyanosis. NEUROLOGICAL: Cranial nerves II through XII grossly intact. Normal speech, normal gait, no focal sensorimotor deficits SKIN: Warm, Dry, normal turgor, no rashes or lesions noted. ED Treatment Course - LABORATORY CBC & Chemistry Diagram: 10/10/17 14:10 10/10/17 15:26 Medical Decision Making - Medical Decision Making 10/10/17 18:26 Ms. Trent is a 72 yo female w/ pmh as described who presents for evaluation of left sided headache with blurriness with vision in left eye. Patient evaluated and found to have equal acuity in both eyes. No other focal findings on exam. Labs grossly wnl as below. Patient headache resolved after IV fluids and reglan. Patient will f/u with ophthalmology on Friday for further evaluation. Discharging to home. Laboratory Results - last 24 hr 10/10/17 10/10/17 10/10/17 14:00 14:10 15:26 WBC 11.1 H D RBC 3.96 Hgb 11.1 Hct 33.9 MCV 85.6 MCH 27.9 MCHC 32.6 RDW 15.7 H Plt Count 417 D MPV 8.2 Absolute Neuts (auto) 8.9 Neutrophils % 80.6 D Lymphocytes % 13.9 D Monocytes % 3.9 Eosinophils % 0.6 D Basophils % 1.0 Nucleated RBC % 0 Sodium Cancelled 142 Potassium Cancelled 4.3 Chloride Cancelled 109 H Carbon Dioxide Cancelled 25 Anion Gap Cancelled 8 BUN Cancelled 15 Creatinine Cancelled 1.1 H Creat Clearance w eGFR Cancelled 48.96 Random Glucose Cancelled 223 H Calcium Cancelled 8.5 Total Bilirubin Cancelled 0.1 L D AST Cancelled 14 L ALT Cancelled 20 Alkaline Phosphatase Cancelled 71 Total Protein Cancelled 6.6 Albumin Cancelled 2.8 L *DC/Admit/Observation/Transfer Diagnosis at time of Disposition: Headache Qualifiers: Headache type: unspecified Headache chronicity pattern: unspecified pattern Intractability: not intractable Qualified Code(s): R51 - Headache - Discharge Dispostion Disposition: HOME - Referrals Referrals: Yaya Montoya MD [Primary Care Provider] - Lorne Etienne MD [Staff Physician] - - Patient Instructions Printed Discharge Instructions: DI for Headache Additional Instructions: Please follow-up with Dr. Etienne as discussed for ophthalmology evaluation. Return to ER if any return of headache, fever, chills, blurry vision, or other concerning symptoms. - Post Discharge Activity
--- NOTE | 2017-10-10 13:39 | PDOC ---
Attending Attestation - Resident Resident Name: Toi Melendez - ED Attending Attestation I have performed the following: I have examined & evaluated the patient, The case was reviewed & discussed with the resident, I agree w/resident's findings & plan, Exceptions are as noted - HPI HPI: 10/10/17 13:46 72y F hx of anemia, lupus, cad presents with 1 week of headache. Pt states she walked into the sun and had mild left eye pain, the pain has since improved but migrated down to the left posterior head/neck. pt endorses some blurry vision but currently is normal. no associated n/v, f/c, numbness/tinglign/weakness. pupils equilly reactive to light no corneal injection snellens symmetric b/l mild tenderness to the L paraspinal /trapzius region sensation/motor intact and symmetric ddx includes tension headache, consider ?glaucoma will give motrin/reglan will reassess - Physicial Exam PE: 10/11/17 07:53 see above - Medical Decision Making 10/10/17 16:53 no tonopen available to test her eye pressure however pt feels well and normal vision with symmetrically reactive pupils - low suspicion for glaucoma vision at baseline labs reviewed, awaiting cmp to come back - anticipate dc with pmd and optho fu ( She sees dr. Umair Etienne)
[2017-10-10] MEDS ORDERED: SODIUM CHLORIDE 1,000 ML IV STA (13:57)
[2017-10-10] MEDS ORDERED: METOCLOPRAMIDE HCL INJECTION 10 MG/2 ML VIAL IVPB ONE (13:57)
[2017-10-10] MEDS ORDERED: METOCLOPRAMIDE HCL INJECTION 10 MG/2 ML VIAL ONE (14:07)
[2017-10-10 14:37] LABS: EOS % 0.6 % (0-4.5); HEMATOCRIT 33.9 % (32.4-45.2); HEMOGLOBIN 11.1 GM/dL (10.7-15.3); LYMPH % 13.9 % (8-40); MCH 27.9 pg (25.7-33.7); MCHC 32.6 g/dl (32.0-36.0); MEAN CELL VOLUME 85.6 fl (80-96); MEAN PLT VOLUME 8.2 fl (7.5-11.1); MONO % 3.9 % (3.8-10.2); NEUT % 80.6 % (42.8-82.8); PLATELET COUNT 417 K/MM3 (134-434); RBC 3.96 M/mm3 (3.60-5.2); RDW 15.7 % (11.6-15.6); WHITE BLOOD COUNT 11.1 K/mm3 (4.0-10.0)
[2017-10-10 17:57] LABS: ALBUMIN 2.8 g/dl (3.4-5.0); ALK PHOS 71 U/L (45-117); ANION GAP 8 (8-16); BILIRUBIN,TOTAL 0.1 mg/dL (0.2-1.0); BLOOD UREA NITROGEN 15 mg/dL (7-18); CALCIUM 8.5 mg/dL (8.5-10.1); CHLORIDE 109 mmol/L (98-107); CO2 25 mmol/L (21-32); CREATININE 1.1 mg/dL (0.55-1.02); GLUCOSE,RANDOM 223 mg/dL (74-106); POTASSIUM 4.3 mmol/L (3.5-5.1); SGOT/AST 14 U/L (15-37); SGPT/ALT 20 U/L (12-78); SODIUM 142 mmol/L (136-145); TOT PROT 6.6 g/dl (6.4-8.2)
== END 2017-10-10 18:41 | disposition home or self-care (01) ==
LOC: JER 12:56
PROC: 4A07X0Z Measurement of Visual Acuity, External Approach (ICD-10-PCS; principal; 2017-10-10)
PROC: 3E033GC Introduction of Other Therapeutic Substance into Peripheral Vein, Percutaneous Approach (ICD-10-PCS; 2017-10-10)
DX: R51 Headache (principal); I25.10 Atherosclerotic heart disease of native coronary artery without angina pectoris; D64.9 Anemia, unspecified; M32.9 Systemic lupus erythematosus, unspecified; E11.9 Type 2 diabetes mellitus without complications; K21.9 Gastro-esophageal reflux disease without esophagitis; Z87.442 Personal history of urinary calculi; Z86.718 Personal history of other venous thrombosis and embolism; Z95.828 Presence of other vascular implants and grafts; Z88.8 Allergy status to other drugs, medicaments and biological substances
CPT/HCPCS: 36415; 70450-TC; 80053; 85025; 96374; 99173; 99282-25; J7030

== ENCOUNTER 2018-05-17 09:37 | Inpatient (IN) | payer BC ==
--- NOTE | 2018-05-17 10:32 | PDOC ---
History of Present Illness - General Chief Complaint: Pain Stated Complaint: PAIN - History of Present Illness Initial Comments: Carol Trent is a 72yo woman with a PMH of anemia, SLE, s/p R BKA, CKD4, CAD, GERD, DM who presents with several weeks of continued left foot pain. Ms Trent has been following with both podiatry, Dr Rodriguez, and vascular surgery, Dr Gomez, for her foot pain. Initially, she went to see Dr Rodriguez in March. He was concerned for ischemia, but on follow up with Dr Gomez she was told that everything looked OK. She went back to podiatry and was given a 10 day course of 500mg levaquin and instructed to do vinegar soaks at home. She did so, and she had her follow up appointment on the . At that time she had a small abscess drained in the office and was told to complete another course of levaquin. She also noted that her foot was dark in color, red, and swollen along the medial side. She has had severe stabbing pains in the medial foot. Since seeing podiatry on , the discoloration, redness, and swelling have markedly improved, but she has the same severe pain. She reports that Dr Rodriguez instructed her to come to the ED if her pain continued. Ms Trent denies any redness, swelling or discoloration streaking/traveling up her leg. She has not had fevers or chills. She has not noticed that her foot has felt cold at any point; previously it felt warm, but this has since resolved. Her biggest concern is that she will need to have another amputation, though she was told that the blood flow to her foot was OK last month. Past History - Past Medical History Allergies/Adverse Reactions: Allergies Allergy/AdvReac Type Severity Reaction Status Date / Time codeine [Codeine] Allergy Hives Verified 05/17/18 09:48 Penicillins Allergy Hives Verified 05/17/18 09:48 lactose AdvReac Verified 05/17/18 09:48 ranitidine [From Zantac] AdvReac headache Verified 05/17/18 09:48 Home Medications: Ambulatory Orders Hydroxychloroquine Sulfate [Plaquenil] 200 mg PO DAILY 10/20/15 Nifedipine [Procardia Xl] 60 mg PO BID 10/20/15 predniSONE [Deltasone -] 5 mg PO ASDIR 10/20/15 Iron,Carbonyl [Feosol] 65 mg PO DAILY 11/20/15 Vitamin B Complex [B Complex # 1] 1 each PO DAILY 11/20/15 Labetalol HCl 200 mg PO BID 07/22/17 Calcium Carbonate [Calcium] 1,000 mg PO DAILY 05/17/18 Famotidine [Pepcid] 20 mg PO DAILY 05/17/18 Gabapentin [Neurontin -] 300 mg PO TID 05/17/18 Magnesium Chloride [Slow-Mag -] 64 mg PO DAILY 05/17/18 Multivit-Min36/Iron/Folic Acid [Geritol Complete Tablet] 1 each PO DAILY levoFLOXacin [Levaquin -] 500 mg PO DAILY 05/17/18 Anemia: Yes (chronic) Asthma: No Cancer: No Cardiac Disorders: Yes (Leg stents) CVA: No COPD: No CHF: No DVT: Yes (by history) Dementia: No Diabetes: No Dialysis: No GI Disorders: Yes (GERD) Disorders: No HTN: Yes Hypercholesterolemia: Yes Kidney Stones: Yes Liver Disease: No Psychiatric Problems: No Seizures: No Thyroid Disease: No Other medical history: Lupus - Surgical History Abdominal Surgery: Yes (10/2015 mass removed-negative) Appendectomy: No Cardiac Surgery: Yes (STENTS OCTOBER 2010 IN LEFT LEG) Cholecystectomy: No Lung Surgery: No Neurologic Surgery: No Orthopedic Surgery: Yes ([place] BUENROSTRO (1996)) - Immunization History Immunization Up to Date: Yes - Suicide/Smoking/Psychosocial Hx Smoking Status: No Smoking History: Never smoked Have you smoked in the past 12 months: No Number of Cigarettes Smoked Daily: 0 If you are a former smoker, when did you quit?: 1979 Hx Alcohol Use: No Drug/Substance Use Hx: No Substance Use Type: None Hx Substance Use Treatment: No Review of Systems - Review of Systems Comments:: General: No fevers, no chills, no weight or appetite change, no malaise HEENT: No changes in vision, no changes in hearing, no congestion, no sore throat CV: No chest pain, no palpitations, no LE edema Pulm: No SOB, no cough, no wheezing GI: No nausea or vomiting, no change in bowel habits, no melena : No frequency, no urgency, no dysuria Musc: No back pain, no joint swelling. See HPI. Skin: Erythema, discoloration on medial L foot Endo: No excessive thirst, no heat/cold intolerance Heme: No unusual bruising or bleeding, no swollen glands Neuro: No syncope, no numbness/tingling, no focal weakness Vasc: No claudication. S/P R BKA Psych: No recent change in mood, no SI or HI *Physical Exam - Vital Signs Last Vital Signs Temp Pulse Resp BP Pulse Ox 98.3 F 78 18 144/48 L 99 05/17/18 09:45 05/17/18 09:45 05/17/18 09:45 05/17/18 09:45 05/17/18 09:45 - Physical Exam Comments: General: Comfortable, no acute distress HEENT: PERRL, EOMI, MMM, voice normal, normal neck ROM, no LAD Cards: RRR, no murmur appreciated Pulm: Comfortable on room air, clear to auscultation bilaterally Abd: Soft, nontender, nondistended Ext: s/p R BKA w/ prosthesis in place. L foot w/ small open wound to medial great toe at MTP joint; toe with lateral deviation. Wound erythematous, 1mm opening, no purulence or notable drainage, no fluctuance, no crepitus. medial L foot diffusely TTP. ROM intact. Strength 5/5 and equal bilaterally Vasc: Extremities WWP. L foot with triphasic DP and PT on doppler Skin: Erythema on medial L foot. Neuro: A&Ox3, CN grossly intact, normal speech, motor/sensory grossly intact and symmetric Psych: Mood appropriate to situation Moderate Sedation - Procedure Monitoring Vital Signs: Procedure Monitoring Vital Signs Temperature 98.3 F 05/17/18 09:45 Pulse Rate 78 05/17/18 09:45 Respiratory Rate 18 05/17/18 09:45 Blood Pressure 144/48 L 05/17/18 09:45 O2 Sat by Pulse Oximetry (%) 99 05/17/18 09:45 ED Treatment Course - LABORATORY CBC & Chemistry Diagram: 05/17/18 11:13 05/17/18 11:13 Medical Decision Making - Medical Decision Making 05/17/18 10:29 Carol Trent is a 72yo woman with a PMH of anemia, lupus (s/p R BKA), CAD, GERD , DM, and nephrolithiasis s/p stent who presents with several weeks of continued left foot pain. She has been seeing Dr Rodriguez (podiatry) and Jason over the past month, and has been on levaquin 500mg daily for 14 days with improvement of swelling and erythema but no improvement in her pain. - Foot with some erythema, TTP concerning for infection. - No fevers/chills, tracking or ascending erythema concerning for systemic infection or sepsis. Has been on abx for 2 weeks, no cultures at this time. No drainage from wound, will not culture wound as superficial skin cultures are usually not a good indication of cause of underlying infection w/ significant contamination from skin yolis. - Vascular exam reassuring w/ triphasic DP and PT on doppler - Xray of foot, CBC, CMP, mag, phos, ESR, CRP to evaluate for possible osteo given location of open wound on medial foot at MTP joint. 05/17/18 13:39 - Labs reviewed. Notable for slight leukocytosis to 11.2, CRP 9.3, ESR 97 - Xray completed w/o obvious osteo - Plan to admit for IV abx given failure of outpatient therapy. Spoke to Dr Dale. Requested EKG, cultures to be sent. Will start IV abx in the ED. Podiatry consult to be placed per Dr Dale Discussed with Dr Carl. Neelima Koenig PGY1 *DC/Admit/Observation/Transfer Diagnosis at time of Disposition: Left foot infection - Discharge Dispostion Decision to Admit order: Yes - Referrals Referrals: Yaya Montoya MD [Primary Care Provider] - - Patient Instructions - Post Discharge Activity
[2018-05-17 11:31] LABS: BASO % 0.9 % (0-2.0); EOS % 2.4 % (0-4.5); HEMATOCRIT 30.8 % (32.4-45.2); HEMOGLOBIN 10.2 GM/dL (10.7-15.3); LYMPH % 11.1 % (8-40); MCH 26.6 pg (25.7-33.7); MEAN CELL VOLUME 80.8 fl (80-96); MEAN PLT VOLUME 7.8 fl (7.5-11.1); MONO % 7.8 % (3.8-10.2); NEUT % 77.8 % (42.8-82.8); PLATELET COUNT 394 K/MM3 (134-434); RBC 3.81 M/mm3 (3.60-5.2); RDW 16.5 % (11.6-15.6); WHITE BLOOD COUNT 11.2 K/mm3 (4.0-10.0)
--- NOTE | 2018-05-17 11:34 | PDOC ---
Attending Attestation - Resident Resident Name: Neelima Koenig - ED Attending Attestation I have performed the following: I have examined & evaluated the patient, The case was reviewed & discussed with the resident, I agree w/resident's findings & plan, Exceptions are as noted - HPI HPI: 05/17/18 11:26 The patient is a 72 year old female, with a significant past medical history of anemia, lupus, PAD (s/p R BKA), CAD, GERD, DM, CKD, and nephrolithiasis (s/p stenting), who presents to the emergency department with left foot pain. Pt states her symptoms began several weeks ago. Endorses discoloration and swelling of the foot initially. This was treated by Dr. Rodriguez, her x ray electronics wiring technician , with a course of levaquin, which she completed last night. Pt also had an abscess drained by Dr. Rodriguez. She states that the swelling has improved significantly on the antibiotics. However, the pain has progressively increased. This morning, she also noticed new redness to the medial aspect of her foot, which she had not noticed previously. She denies any recent fevers, chills, headache or dizziness. Denies any recent nausea, vomit, diarrhea or constipation. Denies any recent chest pain or shortness of breath. Denies any recent dysuria, frequency, urgency or hematuria. Allergies: Codeine, Penicillin, lactose, ranitidine Past surgical history: None reported. Social History: Nonsmoker. Denies EtOH use and recreational drug use. Primary Care Physician: Dr. Montoya Vascular: Dr. Gomez Podiatry: Dr. Rodriguez - Physicial Exam PE: 05/17/18 11:34 "GENERAL: Awake, alert, and fully oriented, in no acute distress. HEAD: No signs of trauma EYES: PERRLA, EOMI, sclera anicteric, conjunctiva clear ENT: Auricles normal inspection, hearing grossly normal, nares patent, oropharynx clear without exudates. Moist mucosa NECK: Nontender, no stepoffs, Normal ROM, supple, no lymphadenopathy, JVD, or masses LUNGS: Breath sounds equal, clear to auscultation bilaterally. No wheezes, and no crackles HEART: Regular rate and rhythm, normal S1 and S2, no murmurs, rubs or gallops ABDOMEN: Soft, nontender, normoactive bowel sounds. No guarding, no rebound. No masses EXTREMITIES: + L foot with erythema to medial aspect of foot extending to 1st toe. + open ulcer with no drainage NEUROLOGICAL: Cranial nerves II through XII intact. 5/5 strength and sensation in all extremities, Normal speech, normal gait, normal cerebellar function SKIN: Warm, Dry, normal turgor, no rashes or lesions noted. - Medical Decision Making 05/17/18 11:35 72 F with infected wound of L foot. Pt with severe PAD requiring amputation of RLE previously. On exam today has dopplerable pulses. HOwever, she has worsening redness and pain despite completing course of Levaquin. - Labs - IV abx - C/s podiatry and vascular
[2018-05-17 11:54] LABS: ALK PHOS 74 U/L (45-117); ANION GAP 7 MMOL/L (8-16); BILIRUBIN,TOTAL 0.2 mg/dL (0.2-1); BLOOD UREA NITROGEN 21 mg/dL (7-18); CALCIUM 9.3 mg/dL (8.5-10.1); CHLORIDE 107 mmol/L (98-107); CO2 28 mmol/L (21-32); CREATININE 1.2 mg/dL (0.55-1.3); GLUCOSE,RANDOM 125 mg/dL (74-106); MAGNESIUM 2.1 mg/dL (1.8-2.4); PHOSPHOROUS 2.7 mg/dL (2.5-4.9); POTASSIUM 3.9 mmol/L (3.5-5.1); SGOT/AST 13 U/L (15-37); SGPT/ALT 16 U/L (13-61); SODIUM 142 mmol/L (136-145); TOT PROT 7.4 g/dl (6.4-8.2)
[2018-05-17 12:30] LABS: ERYTHROCYTE SEDIMENTATION RATE 97 mm/hr (0-30)
[2018-05-17] MEDS ORDERED: VANCOMYCIN 1 GM in D5W (PRE-DOCKED) 1,000 MG/250 ML IVPB ONE (13:52)
[2018-05-17] MEDS ORDERED: AZTREONAM 2 GM in DEXTROSE 5%-WATER 100 ML IVPB ONE (13:52)
--- NOTE | 2018-05-17 14:35 | CON.ID ---
Consult - History of Present Illness History of Present Illness: 72 y.o. female with PMH of SLE on Plaquenil and prednisone, DM, CKD, urinary obstruction s/p stents, PAD s/p b/l LE stents, Rt BKA, CAD, Anemia, GERD presents with worsening Lt foot pain. Pt states that pain began several weeks ago along with redness, discoloration and tenderness. She completed a 10 day course of Levaquin. She was seen by vascular surgeon Dr Gomez to assess for possible ischemia but as per pt there were no abnormal findings. Pt followed up on 05/14/17 and had a small abscess drained from medial aspect of Lt 1st toe and restarted on antibiotics. She states the erythema improved but pain has persistent and is severe (10/10 intensity). Currently Lt medial foot erythema/warmth/tenderness noted in the ER but patient denies any recent fever, has occasional chills, but no other specific complaints. Pt with wbc of 11.3K, elevated esr/crp, but afebrile. - History Source History Provided By: Patient Limitations to Obtaining History: No Limitations - Past Medical History Cardio/Vascular: Yes: CAD Gastrointestinal: Yes: GERD Renal/: Yes: Other (renal obstruction s/p stents) Rheumatology: Yes: Lupus, Vasculitis (chronic), Other (Bachets disease) Endocrine: Yes: Diabetes Mellitus - Past Surgical History Past Surgical History: Yes: Amputation (R AKA) - Alcohol/Substance Use Hx Alcohol Use: No - Smoking History Smoking history: Never smoked Have you smoked in the past 12 months: No Aproximately how many cigarettes per day: 0 If you are a former smoker, when did you quit?: 1979 - Social History ADL: Independent History of Recent Travel: No Home Medications - Allergies Allergies/Adverse Reactions: Allergies Allergy/AdvReac Type Severity Reaction Status Date / Time codeine [Codeine] Allergy Hives Verified 05/17/18 09:48 Penicillins Allergy Hives Verified 05/17/18 09:48 lactose AdvReac Verified 05/17/18 09:48 ranitidine [From Zantac] AdvReac headache Verified 05/17/18 09:48 - Home Medications Home Medications: Ambulatory Orders Hydroxychloroquine Sulfate [Plaquenil] 200 mg PO DAILY 10/20/15 Nifedipine [Procardia Xl] 60 mg PO BID 10/20/15 predniSONE [Deltasone -] 5 mg PO ASDIR 10/20/15 Iron,Carbonyl [Feosol] 65 mg PO DAILY 11/20/15 Vitamin B Complex [B Complex # 1] 1 each PO DAILY 11/20/15 Labetalol HCl 200 mg PO BID 07/22/17 Calcium Carbonate [Calcium] 1,000 mg PO DAILY 05/17/18 Famotidine [Pepcid] 20 mg PO DAILY 05/17/18 Gabapentin [Neurontin -] 300 mg PO TID 05/17/18 Magnesium Chloride [Slow-Mag -] 64 mg PO DAILY 05/17/18 Multivit-Min36/Iron/Folic Acid [Geritol Complete Tablet] 1 each PO DAILY levoFLOXacin [Levaquin -] 500 mg PO DAILY 05/17/18 Review of Systems - Review of Systems Constitutional: reports: No Symptoms. denies: Chills, Diaphoresis, Fever, Lethargy, Loss of Appetite, Malaise, Night Sweats, Unintentional Wgt. Loss, Weakness, Other Eyes: reports: No Symptoms. denies: Blind Spots, Blurred Vision, Double Vision , Eye Pain, Floaters, Photophobia, Recent Change in Vision, Other HENT: reports: No Symptoms. denies: Difficult Swallowing, Ear Discharge, Ear Pain, Epistaxis, Gingival Bleeding, Hearing Loss, Mouth Swelling, Nasal Congestion, Ocular Prosthesis, Throat Pain, Toothache, Ringing in Ears, Other Neck: reports: No Symptoms. denies: Decreased ROM, Lumps, Pain on Movement, Stiffness, Swollen Glands, Tenderness, Other Cardiovascular: reports: No Symptoms. denies: Chest Pain, Edema, Palpitations, Shortness of Breath, Other Respiratory: reports: No Symptoms. denies: Cough, Exercise Intolerance, Hemoptysis, Orthopnea, PND, Snoring, SOB, SOB on Exertion, Wheezing, Other Gastrointestinal: reports: No Symptoms. denies: Abdominal Pain, Bloating, Constipation, Diarrhea, Dysphagia, Indigestion, Melena, Nausea, Rectal Bleeding , Vomiting, Vomiting Blood, Other Genitourinary: reports: No Symptoms. denies: Burning, Discharge, Dysuria, Flank Pain, Frequency, Hematuria, Incontinence, Lesions, Menses, Pain, Testicular Mass, Testicular Pain, Testicular Swelling, Urgency, Vaginal Bleeding , Other Musculoskeletal: reports: Extremity Pain Integumentary: reports: Erythema (Lt medial foot) Neurological: reports: No Symptoms. denies: Change in LOC, Change in Speech, Confusion, Dizziness, Headache, Incoordination, Numbness, Parasthesia, Pre- Existing Deficit, Seizure, Syncope, Tremors, Unsteady Gait, Weakness, Other Endocrine: reports: No Symptoms. denies: Excessive Sweating, Flushing, Increased Hunger, Increased Thirst, Intolerance to Cold, Intolerance to Heat, Unexplained Weight Gain, Unexplained Weight Loss, Other Hematology/Lymphatic: reports: No Symptoms. denies: Easily Bruised, Excessive Bleeding, Swollen Glands, Other Psychiatric: reports: No Symptoms. denies: Altered Sleep Pattern, Anxiety, Depression, Hallucinations, Panic, Paranoia, Suicidal, Other Pain Intensity: 10 Physical Exam Vital Signs: Vital Signs Temperature 98.3 F 05/17/18 09:45 Pulse Rate 78 05/17/18 09:45 Respiratory Rate 18 05/17/18 09:45 Blood Pressure 144/48 L 05/17/18 09:45 O2 Sat by Pulse Oximetry (%) 99 05/17/18 09:45 Constitutional: Yes: No Distress. No: Well Nourished, Calm, Anxious, Ashen, Cachectic, Diaphoresis, Mild Distress, Moderate Distress, Severe Distress, Obese , Pallor, Poor Hygeine, Thin, Other Eyes: Yes: Conjunctiva Clear HENT: Yes: Atraumatic Neck: Yes: Supple Cardiovascular: Yes: Regular Rate and Rhythm Respiratory: Yes: CTA Bilaterally Gastrointestinal: Yes: Normal Bowel Sounds, Soft Renal/: Yes: WNL Musculoskeletal: Yes: WNL Extremities: Yes: Erythema Peripheral Pulses WNL: Yes Integumentary: Yes: Other (Lt medial foot/1st toe erythema, warmth, tenderness, edema, dried wound medial aspect 1st toe) Labs: CBC, BMP 05/17/18 11:13 05/17/18 11:13 Laboratory Results - last 24 hr 05/17/18 05/17/18 11:13 11:13 WBC 11.2 H RBC 3.81 Hgb 10.2 L Hct 30.8 L MCV 80.8 MCH 26.6 MCHC 33.0 RDW 16.5 H Plt Count 394 MPV 7.8 Absolute Neuts (auto) 8.7 H Neutrophils % 77.8 Lymphocytes % 11.1 D Monocytes % 7.8 D Eosinophils % 2.4 D Basophils % 0.9 Nucleated RBC % 0 ESR 97 H Sodium 142 Potassium 3.9 Chloride 107 Carbon Dioxide 28 Anion Gap 7 L BUN 21 H Creatinine 1.2 Creat Clearance w eGFR 44.29 Random Glucose 125 H Calcium 9.3 Phosphorus 2.7 Magnesium 2.1 Total Bilirubin 0.2 AST 13 L ALT 16 Alkaline Phosphatase 74 C-Reactive Protein 7.2 H Total Protein 7.4 Albumin 3.0 L Imaging - Results X-ray: Report Reviewed (no bone erosions) Problem List - Problems (1) Left foot infection Code(s): L08.9 - LOCAL INFECTION OF THE SKIN AND SUBCUTANEOUS TISSUE, UNSP (2) Amputated right leg Code(s): Z89.611 - ACQUIRED ABSENCE OF RIGHT LEG ABOVE KNEE (3) Anemia Code(s): D64.9 - ANEMIA, UNSPECIFIED Qualifiers: Anemia type: unspecified type Qualified Code(s): D64.9 - Anemia, unspecified (4) HTN (hypertension) Code(s): I10 - ESSENTIAL (PRIMARY) HYPERTENSION (5) Hx of AKA (above knee amputation) Code(s): Z89.619 - ACQUIRED ABSENCE OF UNSPECIFIED LEG ABOVE KNEE (6) Hydronephrosis Code(s): N13.30 - UNSPECIFIED HYDRONEPHROSIS (7) Lupus (systemic lupus erythematosus) Code(s): M32.9 - SYSTEMIC LUPUS ERYTHEMATOSUS, UNSPECIFIED (8) Ureteral obstruction, right Code(s): N13.5 - CROSSING VESSEL AND STRICTURE OF URETER W/O HYDRONEPHROSIS Assessment/Plan 72 y.o. female with multiple comorbidities presenting with persistent Lt foot pain, erythema, warmth s/p course of Levaquin and drainage of small abscess Lt foot cellulitis r/o Abscess/Acute OM SLE - on Plaquenil and prednisone PAD s/p Rt BKA DM CKD GERD CAD -- ER records, Labs/imaging results reviewed -- Aztreonam and Vancomycin empirically, monitor renal function, Vancomycin trough prior to 4th dose -- recommend MRI -- pain control -- Podiatry follow up Case discussed with hospitalist Will follow up Thank you
--- NOTE | 2018-05-17 14:38 | HP ---
CHIEF COMPLAINT: left foot pain/swelling/redness PCP: Dr. Montoya Podiatry: Dr. Rodriguez Vascular surgeon: Dr. Gomez HISTORY OF PRESENT ILLNESS: 72 yof with PMhx of Lupus since 1978 on Prednisone/plaquenil, PAD s/p right AKA 1996/s/p iliac stents (last in 2010) ?lupus nephritis, CKD (recent Cr 1.2), Anemia, lymphadenopathy (benign per records), HTN, HLD has been having progressive left foot pain/swelling/redness, was seen by proof carrier Dr. Rodriguez on 05/01/2018, prescribed 10 days of levaquin, also had toenails cut then , was seen again by him on 05/14, when had 'pus' expressed from left medial foot and sent out on additional 10 days of levaquin with instructions to apply topical gentamicin and wash left foot with vinegar. However, patient has been having progressive sharp pains in the left foot, with ongoing swelling redness across inferior left foot, prompting her to come to the ED. Denies any fevers, chills or other symptoms. Was seen by Dr. Gomez 1 month ago when had reportedly normal Dopplers. 12 point ROS done, neg except above. 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 reviewed and found to be non contributory. Allergies codeine [Codeine] Allergy (Verified 05/17/18 09:48) Hives Penicillins Allergy (Verified 05/17/18 09:48) Hives lactose Adverse Reaction (Verified 05/17/18 09:48) ranitidine [From Zantac] Adverse Reaction (Verified 05/17/18 09:48) headache HOME MEDICATIONS: Home Medications Medication Instructions Recorded Hydroxychloroquine Sulfate 200 mg PO DAILY 10/20/15 [Plaquenil] Nifedipine [Procardia Xl] 60 mg PO BID 10/20/15 predniSONE [Deltasone -] 5 mg PO DAILY 10/20/15 Iron,Carbonyl [Feosol] 65 mg PO DAILY 11/20/15 Vitamin B Complex [B Complex # 1] 1 each PO DAILY 11/20/15 Labetalol HCl 200 mg PO BID 07/22/17 Calcium Carbonate [Calcium] 1,000 mg PO DAILY 05/17/18 Famotidine [Pepcid] 20 mg PO DAILY 05/17/18 Gabapentin [Neurontin -] 600 mg PO TID 05/17/18 Magnesium Chloride [Slow-Mag -] 64 mg PO DAILY 05/17/18 Multivit-Min36/Iron/Folic Acid 1 each PO DAILY 05/17/18 [Geritol Complete Tablet] levoFLOXacin [Levaquin -] 500 mg PO DAILY 05/17/18 REVIEW OF SYSTEMS CONSTITUTIONAL: Absent: fever, chills, diaphoresis, generalized weakness, malaise, loss of appetite, weight change HEENT: Absent: rhinorrhea, nasal congestion, throat pain, throat swelling, difficulty swallowing, mouth swelling, ear pain, eye pain, visual changes CARDIOVASCULAR: Absent: chest pain, syncope, palpitations, irregular heart rate, lightheadedness , peripheral edema RESPIRATORY: Absent: cough, shortness of breath, dyspnea with exertion, orthopnea, wheezing, stridor, hemoptysis GASTROINTESTINAL: Absent: abdominal pain, abdominal distension, nausea, vomiting, diarrhea, constipation, melena, hematochezia GENITOURINARY: Absent: dysuria, frequency, urgency, hesitancy, hematuria, flank pain, genital pain MUSCULOSKELETAL: Absent: myalgia, arthralgia, joint swelling, back pain, neck pain Present: left foot pain/swelling/redness SKIN: Absent: rash, itching, pallor HEMATOLOGIC/IMMUNOLOGIC: Absent: easy bleeding, easy bruising, frequent infections Present: lymphadenopathy, ENDOCRINE: Absent: unexplained weight gain, unexplained weight loss, heat intolerance, cold intolerance NEUROLOGIC: Absent: headache, focal weakness or paresthesias, dizziness, unsteady gait, seizure, mental status changes, bladder or bowel incontinence PSYCHIATRIC: Absent: anxiety, depression, suicidal or homicidal ideation, hallucinations. PHYSICAL EXAMINATION Vital Signs - 24 hr 05/17/18 09:45 Temperature 98.3 F Pulse Rate 78 Respiratory 18 Rate Blood Pressure 144/48 L O2 Sat by Pulse 99 Oximetry (%) Intake & Output 05/14/18 05/15/18 05/16/18 05/17/18 23:59 23:59 23:59 23:59 Weight 137 lb GENERAL: Awake, alert, and fully oriented, in no acute distress. HEAD: Normal with no signs of trauma. EYES: Pupils equal, round and reactive to light, extraocular movements intact, sclera anicteric, conjunctiva clear. No lid lag. EARS, NOSE, THROAT: Ears normal, nares patent, oropharynx clear without exudates. Moist mucous membranes. NECK: Soft, supple, No JVD LUNGS: Breath sounds equal, clear to auscultation bilaterally. No wheezes, and no crackles. No accessory muscle use. HEART: Regular rate and rhythm, normal S1 and S2 ABDOMEN: Soft, nontender, not distended, normoactive bowel sounds, no guarding, no rebound, no masses. MUSCULOSKELETAL: Right AKA, left foot pain/swelling/deformed with inward rotation UPPER EXTREMITIES: 2+ pulses, warm, well-perfused. No cyanosis. No clubbing. No peripheral edema. LOWER EXTREMITIES: right AKA, left foot internally rotated) swelling with a punctum/erythema, bunion medial foot, no pus expressed, positive tenderness, medial area of foot with redness/tenderness/swelling, positive palpable PT pulses, well perfused NEUROLOGICAL: facial symmetry, tongue midline,moves all extremities freely PSYCHIATRIC: Cooperative. Good eye contact. Appropriate mood and affect. SKIN: Warm, dry, normal turgor, no rashes or lesions noted, normal capillary refill. Laboratory Results - last 24 hr 05/17/18 05/17/18 11:13 11:13 WBC 11.2 H RBC 3.81 Hgb 10.2 L Hct 30.8 L MCV 80.8 MCH 26.6 MCHC 33.0 RDW 16.5 H Plt Count 394 MPV 7.8 Absolute Neuts (auto) 8.7 H Neutrophils % 77.8 Lymphocytes % 11.1 D Monocytes % 7.8 D Eosinophils % 2.4 D Basophils % 0.9 Nucleated RBC % 0 ESR 97 H Sodium 142 Potassium 3.9 Chloride 107 Carbon Dioxide 28 Anion Gap 7 L BUN 21 H Creatinine 1.2 Creat Clearance w eGFR 44.29 Random Glucose 125 H Calcium 9.3 Phosphorus 2.7 Magnesium 2.1 Total Bilirubin 0.2 AST 13 L ALT 16 Alkaline Phosphatase 74 C-Reactive Protein 7.2 H Total Protein 7.4 Albumin 3.0 L Right foot xray: deformity with bunion formation EKG NSR, no acute ST-T changes. ASSESSMENT/PLAN: 72 yof with PMHx of Lupus since 1978 on Prednisone/plaquenil, PAD s/p right AKA 1996/s/p iliac stents (last in 2010) ?lupus nephritis, CKD (recent Cr 1.2), Anemia, lymphadenopathy (benign per records), HTN, HLD admitted with left foot cellulitis, suspect abscess +/- osteomyelitis. -Left cellulitis, suspected abscess +/- Osteomyelitis -Lupus since 1978 on prednisone/Plaquenil -PAD s/p right AKA 1996, PCI last in 2010 -CKD (?lupus nephritis) -Anemia -Lymphadenopathy -HTN -HLD Plan: Podiatry/ID/vascular surgery input. Blood/wound cx Aztreonam/vancomycin. MRI left foot, Suspect will need I&D +/- local intermodal truck driver abx pending MRI results. Prednisone 5 mg. Hold plaquenil for now. Gentle hydration while on antibiotics. Pain control with Tylenol/Tramadol/Gabapentin. Continue Nifedipine/labetalol DVTPPX with heparin GI PPX famotidine Dispo admit to med surg Plan discussed with patient and son and grand son at bedside in detail, all question answered. Total admit time 65 min. Visit type - Emergency Visit Emergency Visit: Yes Care time: The patient presented to the Emergency Department on the above date and was hospitalized for further evaluation of their emergent condition. - New Patient This patient is new to me today: Yes Date on this admission: 05/17/18 - Critical Care Critical Care patient: No
[2018-05-17] MEDS ORDERED: VANCOMYCIN 1 GRAM (PRE-DOCKED) 1,000 MG/250 ML BAG IVPB ONE (14:40)
[2018-05-17] MEDS ORDERED: traMADol HCL 50 MG TABLET PO PRN (15:08)
[2018-05-17] MEDS: SODIUM CHLORIDE 1,000 ML IV SCH (18:25)
--- NOTE | 2018-05-17 18:27 | EKG ---
Test Reason : Blood Pressure : / mmHG Vent. Rate : 079 BPM Atrial Rate : 079 BPM P-R Int : 144 ms QRS Dur : 084 ms QT Int : 372 ms P-R-T Axes : 047 043 047 degrees QTc Int : 426 ms NORMAL SINUS RHYTHM NORMAL ECG WHEN COMPARED WITH ECG OF 25-JUL-2017 00:03, NO SIGNIFICANT CHANGE WAS FOUND Confirmed by YENI BASURTO MD ([id number]) on 05/17/2018 6:27:08 PM Referred By: Confirmed By:YENI BASURTO MD
[2018-05-17 19:37] VITALS: BMI 27.6
[2018-05-17] MEDS ORDERED: PT OWN MED DRAWER 7, Y5N ONE (21:17)
[2018-05-17] MEDS: ACETAMINOPHEN 325 MG TABLET (FP) PO PRN (21:50)
[2018-05-17] MEDS: LABETALOL HCL 200 MG TABLET (FP) PO SCH (21:51)
[2018-05-17] MEDS: GABAPENTIN 300 MG CAPSULE (FP) PO SCH (21:51)
[2018-05-17] MEDS: NIFEdipine E.R 60 MG TABLET (UD) PO SCH (23:22)
[2018-05-17] MEDS: AZTREONAM 2 GM in DEXTROSE 5%-WATER 100 ML IVPB SCH (23:22)
[2018-05-18] MEDS: GABAPENTIN 300 MG CAPSULE (FP) PO SCH ×3 (06:17→21:57)
[2018-05-18 07:31] LABS: BASO % 1.3 % (0-2.0); EOS % 5.1 % (0-4.5); HEMATOCRIT 31.2 % (32.4-45.2); HEMOGLOBIN 10.2 GM/dL (10.7-15.3); MCH 26.8 pg (25.7-33.7); MCHC 32.9 g/dl (32.0-36.0); MEAN CELL VOLUME 81.7 fl (80-96); MEAN PLT VOLUME 7.6 fl (7.5-11.1); MONO % 11.7 % (3.8-10.2); NEUT % 52.9 % (42.8-82.8); PLATELET COUNT 365 K/MM3 (134-434); RBC 3.82 M/mm3 (3.60-5.2); RDW 16.7 % (11.6-15.6); WHITE BLOOD COUNT 8.4 K/mm3 (4.0-10.0)
[2018-05-18 07:46] LABS: INR 1.18 (0.83-1.09)
[2018-05-18 08:03] LABS: ALBUMIN 2.6 g/dl (3.4-5.0); ALK PHOS 69 U/L (45-117); ANION GAP 8 MMOL/L (8-16); BILIRUBIN,TOTAL 0.2 mg/dL (0.2-1); BLOOD UREA NITROGEN 20 mg/dL (7-18); CALCIUM 8.5 mg/dL (8.5-10.1); CHLORIDE 109 mmol/L (98-107); CO2 27 mmol/L (21-32); CREATININE 1.1 mg/dL (0.55-1.3); GLUCOSE,RANDOM 85 mg/dL (74-106); MAGNESIUM 2.3 mg/dL (1.8-2.4); PHOSPHOROUS 3.6 mg/dL (2.5-4.9); POTASSIUM 3.9 mmol/L (3.5-5.1); SGOT/AST 13 U/L (15-37); SGPT/ALT 12 U/L (13-61); SODIUM 143 mmol/L (136-145); TOT PROT 6.8 g/dl (6.4-8.2)
[2018-05-18] MEDS ORDERED: PT OWN MED DRAWER 7, Y5N ONE ×2 (09:58→17:28)
[2018-05-18] MEDS: NIFEdipine E.R 60 MG TABLET (UD) PO SCH ×2 (10:22→22:01)
[2018-05-18] MEDS: LABETALOL HCL 200 MG TABLET (FP) PO SCH ×2 (10:22→22:01)
[2018-05-18] MEDS: PANTOPRAZOLE 40 MG TABLET (FP) PO SCH (10:22)
[2018-05-18] MEDS: predniSONE 5 MG TABLET (UD) PO SCH (10:22)
[2018-05-18] MEDS: SODIUM CHLORIDE 1,000 ML IV SCH ×2 (10:23→20:09)
--- NOTE | 2018-05-18 10:36 | CONSULT ---
Consult - History of Present Illness History of Present Illness: 72 year old woman with history of PAD requiring placement of bilateral iliac stents in the past. She has a right BKA and developed pain and swelling in the left 1st toe 2 months ago. She is being treated by her adult probation officer who drained pus from the metatarsal bunion area. Arterial Doppler in March showed a popliteal stenosis with SHANTANU 0.9. - History Source History Provided By: Patient, Medical Record - Past Medical History Cardio/Vascular: Yes: CAD Gastrointestinal: Yes: GERD Renal/: Yes: Other (renal obstruction s/p stents) ...: No Rheumatology: Yes: Lupus, Vasculitis (chronic), Other (Bachets disease) Endocrine: Yes: Diabetes Mellitus - Past Surgical History Past Surgical History: Yes: Amputation (R AKA) - Alcohol/Substance Use Hx Alcohol Use: No - Smoking History Smoking history: Never smoked Have you smoked in the past 12 months: No Aproximately how many cigarettes per day: 0 If you are a former smoker, when did you quit?: 1979 - Social History ADL: Independent History of Recent Travel: No Home Medications - Allergies Allergies/Adverse Reactions: Allergies Allergy/AdvReac Type Severity Reaction Status Date / Time codeine [Codeine] Allergy Hives Verified 05/17/18 09:48 Penicillins Allergy Hives Verified 05/17/18 09:48 lactose AdvReac Verified 05/17/18 09:48 ranitidine [From Zantac] AdvReac headache Verified 05/17/18 09:48 - Home Medications Home Medications: Ambulatory Orders Hydroxychloroquine Sulfate [Plaquenil] 200 mg PO DAILY 10/20/15 Nifedipine [Procardia Xl] 60 mg PO BID 10/20/15 predniSONE [Deltasone -] 5 mg PO DAILY 10/20/15 Iron,Carbonyl [Feosol] 65 mg PO DAILY 11/20/15 Vitamin B Complex [B Complex # 1] 1 each PO DAILY 11/20/15 Labetalol HCl 200 mg PO BID 07/22/17 Calcium Carbonate [Calcium] 1,000 mg PO DAILY 05/17/18 Famotidine [Pepcid] 20 mg PO DAILY 05/17/18 Gabapentin [Neurontin -] 600 mg PO TID 05/17/18 Magnesium Chloride [Slow-Mag -] 64 mg PO DAILY 05/17/18 Multivit-Min36/Iron/Folic Acid [Geritol Complete Tablet] 1 each PO DAILY levoFLOXacin [Levaquin -] 500 mg PO DAILY 05/17/18 Physical Exam Vital Signs: Vital Signs Temperature 97.7 F 05/18/18 05:53 Pulse Rate 69 05/18/18 05:53 Respiratory Rate 05/18/18 05:53 Blood Pressure 155/66 05/18/18 05:53 O2 Sat by Pulse Oximetry (%) 99 05/17/18 21:00 Extremities: Yes: Other (Left leg and foot warm, no skin changes. 1st metatarsal head bunion with local edema. No open wound. No erythema. Area very tender to touch) Peripheral Pulses WNL: No (Non-palpable DP and PT left foot. ) Labs: CBC, BMP 05/18/18 07:00 05/18/18 07:00 Problem List - Problems (1) Atherosclerosis of [place] arteries of left leg with ulceration of other part of foot Assessment/Plan: Popliteal and tibial disease seen on recent Duplex. With chronic pain and wound in foot will proceed with angiogram to treat stenosis. Code(s): I70.245 - ATHSCL UTE ARTERIES OF LEFT LEG W ULCERATION OTH PRT FOOT (2) Left foot infection Assessment/Plan: Debridement of wound following angiogram tomorrow. Code(s): L08.9 - LOCAL INFECTION OF THE SKIN AND SUBCUTANEOUS TISSUE, UNSP
[2018-05-18] MEDS ORDERED: LORazepam 2 MG/ML SDV VIAL IVPUSH ONE (10:53)
--- NOTE | 2018-05-18 11:05 | PN ---
Progress Note (short form) - Note Progress Note: Patient seen for redness and pain left foot. BKA right leg. Patient suffers from lupus and sequellae. Patient states foot was drained by Dr. Rodriguez 1 week ago. vss, Tmax 98. +red hot swollen 1st mpj left, +grade 0-1 wound dme, -drainage, wbc=8.4 down from abnormal levels upon admission, esr=97, xray + for exostosis dme area, + subluxed MPJ, gout? cellulitis? grade 0-1 wound MRI to be done. Uric acid to be evaluated. Betadine dressing change medial left foot. Will follow.
[2018-05-18] MEDS: AZTREONAM 2 GM in DEXTROSE 5%-WATER 100 ML IVPB SCH ×2 (11:55→17:31)
--- NOTE | 2018-05-18 12:30 | PN ---
Teaching Attending Note Name of Resident: Charlette Stewart ATTENDING PHYSICIAN STATEMENT I saw and evaluated the patient. I reviewed the resident's note and discussed the case with the resident. I agree with the resident's findings and plan as documented with exceptions below. SUBJECTIVE: Patient seen and examined. Left foot symptoms improved, no fevers/chills, still with ongoing pain. OBJECTIVE: Vital Signs Period Temp Pulse Resp BP Sys/Hidalgo Pulse Ox Last 24 Hr 97.7 F-98.7 F 69-86 18-20 144-164/66-73 99-99 Intake & Output 05/15/18 05/16/18 05/17/18 05/18/18 23:59 23:59 23:59 23:59 Intake Total 302 1150 Balance 302 1150 Weight 137 lb General: sitting in bed in no acute distress Extremities: left foot swelling/redness/tenderness with some improvement, pain overall left bunion area, minimal clear fluid expressed, marked tenderness Home Medications Medication Instructions Recorded Hydroxychloroquine Sulfate 200 mg PO DAILY 10/20/15 [Plaquenil] Nifedipine [Procardia Xl] 60 mg PO BID 10/20/15 predniSONE [Deltasone -] 5 mg PO DAILY 10/20/15 Iron,Carbonyl [Feosol] 65 mg PO DAILY 11/20/15 Vitamin B Complex [B Complex # 1] 1 each PO DAILY 11/20/15 Labetalol HCl 200 mg PO BID 07/22/17 Calcium Carbonate [Calcium] 1,000 mg PO DAILY 05/17/18 Famotidine [Pepcid] 20 mg PO DAILY 05/17/18 Gabapentin [Neurontin -] 600 mg PO TID 05/17/18 Magnesium Chloride [Slow-Mag -] 64 mg PO DAILY 05/17/18 Multivit-Min36/Iron/Folic Acid 1 each PO DAILY 05/17/18 [Geritol Complete Tablet] levoFLOXacin [Levaquin -] 500 mg PO DAILY 05/17/18 Active Medications Acetaminophen (Tylenol -) 650 mg PO Q4H PRN PRN Reason: PAIN LEVEL 1-5 Last Admin: 05/17/18 21:50 Dose: 650 mg Gabapentin (Neurontin -) 600 mg PO TID [facility] Last Admin: 05/18/18 06:17 Dose: 600 mg Aztreonam 2 gm/ Dextrose 100 mls @ 200 mls/hr IVPB Q8H-IV [facility]; Protocol Last Admin: 05/18/18 11:55 Dose: 200 mls/hr Vancomycin HCl (Vancomycin (Pre-Docked)) 1,000 mg in 250 mls @ 200 mls/hr IVPB Q24H [facility]; Protocol Sodium Chloride (Normal Saline -) 1,000 mls @ 75 mls/hr IV ASDIR [facility] Last Admin: 05/18/18 10:23 Dose: 75 mls/hr Labetalol HCl (Normodyne -) 200 mg PO BID [facility] Last Admin: 05/18/18 10:22 Dose: 200 mg Nifedipine (Procardia Xl -) 60 mg PO BID [facility] Last Admin: 05/18/18 10:22 Dose: 60 mg Pantoprazole Sodium (Protonix -) 40 mg PO DAILY [facility] Last Admin: 05/18/18 10:22 Dose: 40 mg Prednisone (Deltasone -) 5 mg PO DAILY [facility] Last Admin: 05/18/18 10:22 Dose: 5 mg Tramadol HCl (Ultram -) 50 mg PO Q6H PRN PRN Reason: PAIN LEVEL 6-10 Laboratory Results - last 24 hr 05/17/18 05/18/18 05/18/18 11:13 07:00 07:00 WBC 8.4 RBC 3.82 Hgb 10.2 L Hct 31.2 L MCV 81.7 MCH 26.8 MCHC 32.9 RDW 16.7 H Plt Count 365 MPV 7.6 Absolute Neuts (auto) 4.4 Neutrophils % 52.9 D Lymphocytes % 29.0 D Monocytes % 11.7 H Eosinophils % 5.1 H D Basophils % 1.3 Nucleated RBC % 0 ESR 97 H PT with INR 14.00 H INR 1.18 H Sodium Potassium Chloride Carbon Dioxide Anion Gap BUN Creatinine Creat Clearance w eGFR Random Glucose Calcium Phosphorus Magnesium Total Bilirubin AST ALT Alkaline Phosphatase Total Protein Albumin 05/18/18 07:00 WBC RBC Hgb Hct MCV MCH MCHC RDW Plt Count MPV Absolute Neuts (auto) Neutrophils % Lymphocytes % Monocytes % Eosinophils % Basophils % Nucleated RBC % ESR PT with INR INR Sodium 143 Potassium 3.9 Chloride 109 H Carbon Dioxide 27 Anion Gap 8 BUN 20 H Creatinine 1.1 Creat Clearance w eGFR 48.96 Random Glucose 85 Calcium 8.5 Phosphorus 3.6 Magnesium 2.3 Total Bilirubin 0.2 AST 13 L ALT 12 L Alkaline Phosphatase 69 Total Protein 6.8 Albumin 2.6 L ASSESSMENT AND PLAN: 72 yof with PMHx of Lupus since 1978 on Prednisone/plaquenil, PAD s/p right AKA 1996/s/p iliac stents (last in 2010) ?lupus nephritis, CKD (recent Cr 1.2), Anemia, lymphadenopathy (benign per records), HTN, HLD admitted with left foot cellulitis, suspect abscess +/- osteomyelitis. -Left cellulitis, suspected abscess +/- Osteomyelitis -Lupus since 1978 on prednisone/Plaquenil -PAD s/p right AKA 1996, PCI last in 2010 -CKD (?lupus nephritis) -Anemia -Lymphadenopathy -HTN -HLD Plan: Podiatry/ID/vascular surgery input noted For angiogram/debridement Blood/wound cx Aztreonam/vancomycin day 2, monitor vanco levels. . MRI left foot Prednisone 5 mg. Hold plaquenil for now. Gentle hydration while on antibiotics. Pain control with Tylenol/Tramadol/Gabapentin. Continue Nifedipine/labetalol DVTPPX with heparin GI PPX famotidine Dispo pending clinical improvement. Plan discussed with patient in detail, all question answered.
--- NOTE | 2018-05-18 13:30 | PN ---
Progress Note, Physician History of Present Illness: patient with pus draining form the left foot very tender - Current Medication List Current Medications: Active Medications Acetaminophen (Tylenol -) 650 mg PO Q4H PRN PRN Reason: PAIN LEVEL 1-5 Last Admin: 05/17/18 21:50 Dose: 650 mg Gabapentin (Neurontin -) 600 mg PO TID [facility] Last Admin: 05/18/18 06:17 Dose: 600 mg Aztreonam 2 gm/ Dextrose 100 mls @ 200 mls/hr IVPB Q8H-IV [facility]; Protocol Last Admin: 05/18/18 11:55 Dose: 200 mls/hr Vancomycin HCl (Vancomycin (Pre-Docked)) 1,000 mg in 250 mls @ 200 mls/hr IVPB Q24H [facility]; Protocol Sodium Chloride (Normal Saline -) 1,000 mls @ 75 mls/hr IV ASDIR [facility] Last Admin: 05/18/18 10:23 Dose: 75 mls/hr Labetalol HCl (Normodyne -) 200 mg PO BID [facility] Last Admin: 05/18/18 10:22 Dose: 200 mg Nifedipine (Procardia Xl -) 60 mg PO BID [facility] Last Admin: 05/18/18 10:22 Dose: 60 mg Pantoprazole Sodium (Protonix -) 40 mg PO DAILY [facility] Last Admin: 05/18/18 10:22 Dose: 40 mg Prednisone (Deltasone -) 5 mg PO DAILY [facility] Last Admin: 05/18/18 10:22 Dose: 5 mg Tramadol HCl (Ultram -) 50 mg PO Q6H PRN PRN Reason: PAIN LEVEL 6-10 - Objective Vital Signs: Vital Signs Temperature 97.7 F 05/18/18 05:53 Pulse Rate 69 05/18/18 05:53 Respiratory Rate 20 05/18/18 05:53 Blood Pressure 155/66 05/18/18 05:53 O2 Sat by Pulse Oximetry (%) 99 05/17/18 21:00 Constitutional: Yes: Calm, Mild Distress Eyes: Yes: Conjunctiva Clear Cardiovascular: Yes: S1, S2 Respiratory: Yes: Regular, CTA Bilaterally Musculoskeletal: Yes: WNL Extremities: Yes: Other Wound/Incision: Yes: Draining (pus) Neurological: Yes: Alert, Oriented Psychiatric: Yes: Alert, Oriented Labs: CBC, BMP 05/18/18 07:00 05/18/18 07:00 INR, PTT INR 1.18 (0.83-1.09) H 05/18/18 07:00 Assessment/Plan Problem List - Problems (1) Left foot infection Code(s): L08.9 - LOCAL INFECTION OF THE SKIN AND SUBCUTANEOUS TISSUE, UNSP (2) Amputated right leg Code(s): Z89.611 - ACQUIRED ABSENCE OF RIGHT LEG ABOVE KNEE (3) Anemia Code(s): D64.9 - ANEMIA, UNSPECIFIED Qualifiers: Anemia type: unspecified type Qualified Code(s): D64.9 - Anemia, unspecified (4) HTN (hypertension) Code(s): I10 - ESSENTIAL (PRIMARY) HYPERTENSION (5) Hx of AKA (above knee amputation) Code(s): Z89.619 - ACQUIRED ABSENCE OF UNSPECIFIED LEG ABOVE KNEE (6) Hydronephrosis Code(s): N13.30 - UNSPECIFIED HYDRONEPHROSIS (7) Lupus (systemic lupus erythematosus) Code(s): M32.9 - SYSTEMIC LUPUS ERYTHEMATOSUS, UNSPECIFIED (8) Ureteral obstruction, right Code(s): N13.5 - CROSSING VESSEL AND STRICTURE OF URETER W/O HYDRONEPHROSIS plan continue abx trip[hase bone scan wound cx vascular planning to take pt to or podiatry on case rest as per the team
[2018-05-18] MEDS: VANCOMYCIN 1 GRAM (PRE-DOCKED) 1,000 MG/250 ML BAG IVPB SCH (16:13)
[2018-05-18] MEDS ORDERED: MAG HYDROX/AL HYDROX/SIMETH 30 ML UNIT-DOSE CUP PO PRN (18:54)
--- NOTE | 2018-05-18 19:34 | PN ---
Physical Exam: SUBJECTIVE: Patient seen and examined by me at bedside. No acute events overnight Still has pain and severe tenderness upon palpation of left foot. However, reports no drainage today Otherwise, denies any fever, chills, nausea, vomiting, abdominal pain, chest pain, palpitations, shortness of breath, headaches OBJECTIVE: Vital Signs Period Temp Pulse Resp BP Sys/Hidalgo Pulse Ox Last 24 Hr 97.7 F-98.7 F 69-86 20-20 144-155/66-75 99-99 GENERAL: The patient is awake, alert, and fully oriented, in no acute distress. EYES: Sclera anicteric, conjunctiva clear. No ptosis. ENT: Oropharynx clear without exudates, moist mucous membranes. LUNGS: Breath sounds equal, clear to auscultation bilaterally, no wheezes, no crackles, no accessory muscle use. HEART: Regular rate and rhythm, Normal S1 and S2 without murmur, rub or gallop. ABDOMEN: Soft, nontender, nondistended, normoactive bowel sounds EXTREMITIES: No edema. PSYCH: Normal mood, normal affect. SKIN: Left foot erythema, redness and severe TTP with no drainage. Laboratory Results 05/18/18 07:00 05/18/18 07:00 Active Medications Generic Name Dose Route Start Last Admin Trade Name Freq PRN Reason Stop Dose Admin Acetaminophen 650 mg 05/17/18 15:04 05/17/18 21:50 Tylenol - PO 650 mg Q4H PRN Administration PAIN LEVEL 1-5 Al Hydroxide/Mg Hydroxide 30 ml 05/18/18 18:54 Mylanta Oral Suspension - PO Q6H PRN DYSPEPSIA Gabapentin 600 mg 05/17/18 22:00 05/18/18 14:08 Neurontin - PO 600 mg TID [facility] Administration Aztreonam 2 gm/ Dextrose 100 mls @ 200 mls/hr 05/17/18 23:00 05/18/18 17:31 IVPB 200 mls/hr Q8H-IV [facility] Administration Protocol Vancomycin HCl 1,000 mg in 250 mls @ 200 mls/hr 05/18/18 15:00 05/18/18 16:13 Vancomycin (Pre-Docked) IVPB 200 mls/hr Q24H [facility] Administration Protocol Sodium Chloride 1,000 mls @ 75 mls/hr 05/17/18 15:15 05/18/18 10:23 Normal Saline - IV 75 mls/hr ASDIR [facility] Administration Labetalol HCl 200 mg 05/17/18 22:00 05/18/18 10:22 Normodyne - PO 200 mg BID [facility] Administration Nifedipine 60 mg 05/17/18 22:00 05/18/18 10:22 Procardia Xl - PO 60 mg BID [facility] Administration Pantoprazole Sodium 40 mg 05/18/18 10:00 05/18/18 10:22 Protonix - PO 40 mg DAILY [facility] Administration Prednisone 5 mg 05/18/18 10:00 05/18/18 10:22 Deltasone - PO 5 mg DAILY [facility] Administration Tramadol HCl 50 mg 05/17/18 15:08 Ultram - PO Q6H PRN PAIN LEVEL 6-10 ASSESSMENT/PLAN: Patient is a 72 year old female with a PMHx of Lupus since 1978 (On prednisone and Plaquenil), PAD s/p right AKA with iliac stent placements, CKD, Anemia of chronic disease, HTN, HLD, who presented for left foot pain and was found to have cellulitis. Left Foot Cellulitis -Suspect abscess with possibly Osteomyelitis -Scheduled tomorrow for debridement and angio by vascular surgeon, Dr. Gomez -Blood cultures negative -Will need wound cultures -Continue Vancomycin 1gm and Aztreonam 2gm Q8H (day #2) -Continue IV Fluids with NS @75mls/hr -Unable to have MRI of the foot done due to patient having permanent eyeliner which contains lead/metal -Podiatry consult placed Lupus -Currently on Prednisone and Plaquenil at home -Continue Prednisone 5mg daily -Discontinue Plaquenil for now PAD s/p Right AKA and PCI -For angio and debridement of left foot tomorrow -Pain control with Tylenol, Tramadol and Gabapentin CKD -Possibly lupus nephritis -Kidney function stable -Continue IV hydration with NS @75mls/hr -Continue to monitor BMP HTN -Continue Nifedipine 60mg BID -Continue Labetolol 200mg BID -Continue to monitor BP F/E/N -IV NS @75mls/hr -Electrolytes wnl -Sodium controlled and NPO after midnight Prophylaxis -Heparin 5000 units SQ TID for DVT -Famotidine 40mg daily for GI Disposition -Full code -Angio and debridement scheduled for tomorrow. Charlette Stewart [id number] Visit type - Emergency Visit Emergency Visit: Yes ED Registration Date: 05/17/18 Care time: The patient presented to the Emergency Department on the above date and was hospitalized for further evaluation of their emergent condition. - New Patient This patient is new to me today: Yes Date on this admission: 05/18/18 - Critical Care Critical Care patient: No
[2018-05-18] MEDS: ACETAMINOPHEN 325 MG TABLET (FP) PO PRN (21:58)
[2018-05-19] MEDS ORDERED: PT OWN MED DRAWER 7, Y5N ONE ×2 (02:34→21:19)
[2018-05-19] MEDS: AZTREONAM 2 GM in DEXTROSE 5%-WATER 100 ML IVPB SCH ×3 (02:42→18:19)
[2018-05-19] MEDS: GABAPENTIN 300 MG CAPSULE (FP) PO SCH ×3 (06:24→21:41)
[2018-05-19 07:51] LABS: BASO % 1.3 % (0-2.0); EOS % 4.8 % (0-4.5); HEMATOCRIT 31.8 % (32.4-45.2); HEMOGLOBIN 10.4 GM/dL (10.7-15.3); LYMPH % 26.6 % (8-40); MCH 26.6 pg (25.7-33.7); MCHC 32.6 g/dl (32.0-36.0); MEAN CELL VOLUME 81.8 fl (80-96); MEAN PLT VOLUME 7.8 fl (7.5-11.1); MONO % 10.8 % (3.8-10.2); NEUT % 56.5 % (42.8-82.8); PLATELET COUNT 392 K/MM3 (134-434); RBC 3.89 M/mm3 (3.60-5.2); RDW 16.5 % (11.6-15.6); WHITE BLOOD COUNT 9.8 K/mm3 (4.0-10.0)
[2018-05-19 08:09] LABS: INR 1.11 (0.83-1.09); PROTHROMBIN TIME (PATIENT) 13.1 SEC (9.7-13.0)
[2018-05-19 08:12] LABS: ALBUMIN 2.7 g/dl (3.4-5.0); ALK PHOS 71 U/L (45-117); ANION GAP 8 MMOL/L (8-16); BILIRUBIN,TOTAL 0.8 mg/dL (0.2-1); BLOOD UREA NITROGEN 20 mg/dL (7-18); CALCIUM 8.8 mg/dL (8.5-10.1); CHLORIDE 109 mmol/L (98-107); CO2 26 mmol/L (21-32); GLUCOSE,RANDOM 87 mg/dL (74-106); MAGNESIUM 2.2 mg/dL (1.8-2.4); PHOSPHOROUS 3.3 mg/dL (2.5-4.9); POTASSIUM 3.9 mmol/L (3.5-5.1); SGOT/AST 11 U/L (15-37); SGPT/ALT 11 U/L (13-61); SODIUM 144 mmol/L (136-145); URIC ACID 3.8 mg/dL (2.6-7.2)
[2018-05-19] MEDS: predniSONE 5 MG TABLET (UD) PO SCH (09:17)
[2018-05-19] MEDS: LABETALOL HCL 200 MG TABLET (FP) PO SCH ×2 (09:17→21:41)
[2018-05-19] MEDS: NIFEdipine E.R 60 MG TABLET (UD) PO SCH ×2 (09:17→21:41)
[2018-05-19] MEDS: PANTOPRAZOLE 40 MG TABLET (FP) PO SCH (09:17)
--- NOTE | 2018-05-19 12:28 | PN ---
Progress Note, Physician History of Present Illness: stable no new issues - Current Medication List Current Medications: Active Medications Acetaminophen (Tylenol -) 650 mg PO Q4H PRN PRN Reason: PAIN LEVEL 1-5 Last Admin: 05/18/18 21:58 Dose: 650 mg Al Hydroxide/Mg Hydroxide (Mylanta Oral Suspension -) 30 ml PO Q6H PRN PRN Reason: DYSPEPSIA Gabapentin (Neurontin -) 600 mg PO TID [facility] Last Admin: 05/19/18 06:24 Dose: 600 mg Aztreonam 2 gm/ Dextrose 100 mls @ 200 mls/hr IVPB Q8H-IV [facility]; Protocol Last Admin: 05/19/18 09:16 Dose: 200 mls/hr Vancomycin HCl (Vancomycin (Pre-Docked)) 1,000 mg in 250 mls @ 200 mls/hr IVPB Q24H [facility]; Protocol Last Admin: 05/18/18 16:13 Dose: 200 mls/hr Sodium Chloride (Normal Saline -) 1,000 mls @ 75 mls/hr IV ASDIR [facility] Last Admin: 05/18/18 20:09 Dose: Not Given Labetalol HCl (Normodyne -) 200 mg PO BID [facility] Last Admin: 05/19/18 09:17 Dose: 200 mg Nifedipine (Procardia Xl -) 60 mg PO BID [facility] Last Admin: 05/19/18 09:17 Dose: 60 mg Pantoprazole Sodium (Protonix -) 40 mg PO DAILY [facility] Last Admin: 05/19/18 09:17 Dose: Not Given Prednisone (Deltasone -) 5 mg PO DAILY [facility] Last Admin: 05/19/18 09:17 Dose: Not Given Tramadol HCl (Ultram -) 50 mg PO Q6H PRN PRN Reason: PAIN LEVEL 6-10 - Objective Vital Signs: Vital Signs Temperature 98.3 F 05/19/18 06:00 Pulse Rate 74 05/19/18 06:00 Respiratory Rate 20 05/19/18 06:00 Blood Pressure 154/67 05/19/18 06:00 O2 Sat by Pulse Oximetry (%) 98 05/18/18 21:00 Constitutional: Yes: No Distress, Calm Cardiovascular: Yes: Regular Rate and Rhythm Respiratory: Yes: Regular, CTA Bilaterally Gastrointestinal: Yes: Normal Bowel Sounds, Soft Musculoskeletal: Yes: Other Extremities: Yes: Other Neurological: Yes: Alert, Oriented Psychiatric: Yes: Alert, Oriented Labs: CBC, BMP 05/19/18 07:17 05/19/18 07:17 INR, PTT INR 1.11 (0.83-1.09) H 05/19/18 07:17 Assessment/Plan Problem List - Problems (1) Left foot infection Code(s): L08.9 - LOCAL INFECTION OF THE SKIN AND SUBCUTANEOUS TISSUE, UNSP (2) Amputated right leg Code(s): Z89.611 - ACQUIRED ABSENCE OF RIGHT LEG ABOVE KNEE (3) Anemia Code(s): D64.9 - ANEMIA, UNSPECIFIED Qualifiers: Anemia type: unspecified type Qualified Code(s): D64.9 - Anemia, unspecified (4) HTN (hypertension) Code(s): I10 - ESSENTIAL (PRIMARY) HYPERTENSION (5) Hx of AKA (above knee amputation) Code(s): Z89.619 - ACQUIRED ABSENCE OF UNSPECIFIED LEG ABOVE KNEE (6) Hydronephrosis Code(s): N13.30 - UNSPECIFIED HYDRONEPHROSIS (7) Lupus (systemic lupus erythematosus) Code(s): M32.9 - SYSTEMIC LUPUS ERYTHEMATOSUS, UNSPECIFIED (8) Ureteral obstruction, right Code(s): N13.5 - CROSSING VESSEL AND STRICTURE OF URETER W/O HYDRONEPHROSIS plan continue abx trip[hase bone scan podiatry on case rest as per the team patient going to or today
--- NOTE | 2018-05-19 13:21 | PN ---
Physical Exam: SUBJECTIVE: Patient seen and examined by me at bedside No acute events overnight Scheduled for the OR today to have angio and debridement of left foot by Dr. Gomez Otherwise, patient denies any fever, chills, nausea, vomiting, abdominal pain, chest pain, palpitations, shortness of breath, headaches. OBJECTIVE: Vital Signs Period Temp Pulse Resp BP Sys/Hidalgo Pulse Ox Last 24 Hr 98 F-98.3 F 73-85 18-20 144-154/67-77 98 GENERAL: The patient is awake, alert, and fully oriented, in no acute distress. EYES: Sclera anicteric, conjunctiva clear. No ptosis. ENT: Oropharynx clear without exudates, moist mucous membranes. LUNGS: Breath sounds equal, clear to auscultation bilaterally, no wheezes, no crackles, no accessory muscle use. HEART: Regular rate and rhythm, Normal S1 and S2 without murmur, rub or gallop. ABDOMEN: Soft, nontender, nondistended, normoactive bowel sounds EXTREMITIES: No edema. PSYCH: Normal mood, normal affect. SKIN: Left foot erythema, redness and severe TTP with no drainage. Laboratory Results 05/19/18 07:17 05/19/18 07:17 Active Medications Generic Name Dose Route Start Last Admin Trade Name Freq PRN Reason Stop Dose Admin Acetaminophen 650 mg 05/17/18 15:04 05/18/18 21:58 Tylenol - PO 650 mg Q4H PRN Administration PAIN LEVEL 1-5 Al Hydroxide/Mg Hydroxide 30 ml 05/18/18 18:54 Mylanta Oral Suspension - PO Q6H PRN DYSPEPSIA Gabapentin 600 mg 05/17/18 22:00 05/19/18 13:14 Neurontin - PO Not Given TID [facility] Aztreonam 2 gm/ Dextrose 100 mls @ 200 mls/hr 05/17/18 23:00 05/19/18 09:16 IVPB 200 mls/hr Q8H-IV [facility] Administration Protocol Vancomycin HCl 1,000 mg in 250 mls @ 200 mls/hr 05/18/18 15:00 05/18/18 16:13 Vancomycin (Pre-Docked) IVPB 200 mls/hr Q24H [facility] Administration Protocol Sodium Chloride 1,000 mls @ 75 mls/hr 05/17/18 15:15 05/18/18 20:09 Normal Saline - IV Not Given ASDIR [facility] Labetalol HCl 200 mg 05/17/18 22:00 05/19/18 09:17 Normodyne - PO 200 mg BID [facility] Administration Nifedipine 60 mg 05/17/18 22:00 05/19/18 09:17 Procardia Xl - PO 60 mg BID [facility] Administration Pantoprazole Sodium 40 mg 05/18/18 10:00 05/19/18 09:17 Protonix - PO Not Given DAILY [facility] Prednisone 5 mg 05/18/18 10:00 05/19/18 09:17 Deltasone - PO Not Given DAILY [facility] Tramadol HCl 50 mg 05/17/18 15:08 Ultram - PO Q6H PRN PAIN LEVEL 6-10 ASSESSMENT/PLAN: Patient is a 72 year old female with a PMHx of Lupus since 1978 (On prednisone and Plaquenil), PAD s/p right AKA with iliac stent placements, CKD, Anemia of chronic disease, HTN, HLD, who presented for left foot pain and was found to have cellulitis. Left Foot Cellulitis -Suspect abscess with possibly Osteomyelitis -Scheduled for debridement and angio with vascular surgeon, Dr. Gomez, this afternoon -Blood cultures negative -Will need wound cultures -Continue Vancomycin 1gm and Aztreonam 2gm Q8H (day #2) -Continue IV Fluids with NS @75mls/hr -Unable to have MRI of the foot done due to patient having permanent eyeliner which contains lead/metal -Triple phase Bone scan to be done instead -Podiatry consult placed Lupus -Currently on Prednisone and Plaquenil at home -Continue Prednisone 5mg daily -Discontinue Plaquenil for now PAD s/p Right AKA and PCI -For angio and debridement of left foot tomorrow -Pain control with Tylenol, Tramadol and Gabapentin CKD -Possibly lupus nephritis -Kidney function stable -Continue IV hydration with NS @75mls/hr -Continue to monitor BMP HTN -Continue Nifedipine 60mg BID -Continue Labetolol 200mg BID -Continue to monitor BP F/E/N -IV NS @75mls/hr -Electrolytes wnl -NPO until after procedure Prophylaxis -Heparin 5000 units SQ TID for DVT -Famotidine 40mg daily for GI Disposition -Full code -Angio and debridement scheduled for tomorrow. Charlette Stewart [id number] Visit type - Emergency Visit Emergency Visit: Yes ED Registration Date: 05/17/18 Care time: The patient presented to the Emergency Department on the above date and was hospitalized for further evaluation of their emergent condition. - New Patient This patient is new to me today: No - Critical Care Critical Care patient: No
--- NOTE | 2018-05-19 13:27 | PN ---
Teaching Attending Note Name of Resident: Charlette Stewart ATTENDING PHYSICIAN STATEMENT I saw and evaluated the patient. I reviewed the resident's note and discussed the case with the resident. I agree with the resident's findings and plan as documented with exceptions below. SUBJECTIVE: Patient seen and examined. right leg symptoms improved, still with pain, no new fevers/chills. OBJECTIVE: Vital Signs Period Temp Pulse Resp BP Sys/Hidalgo Pulse Ox Last 24 Hr 98 F-98.3 F 73-85 18-20 144-154/67-77 95-98 Intake & Output 05/16/18 05/17/18 05/18/18 05/19/18 23:59 23:59 23:59 23:59 Intake Total 302 1900 550 Balance 302 1900 550 Weight 137 lb General:sitting in bed in no acute distress Extremities: left foot swelling with induration/tenderness over left medial bunion, no active discharge, improvement in erythema/swelling of medial left foot, still tenderness, palpable good PT pulse on RLE Home Medications Medication Instructions Recorded Hydroxychloroquine Sulfate 200 mg PO DAILY 10/20/15 [Plaquenil] Nifedipine [Procardia Xl] 60 mg PO BID 10/20/15 predniSONE [Deltasone -] 5 mg PO DAILY 10/20/15 Iron,Carbonyl [Feosol] 65 mg PO DAILY 11/20/15 Vitamin B Complex [B Complex # 1] 1 each PO DAILY 11/20/15 Labetalol HCl 200 mg PO BID 07/22/17 Calcium Carbonate [Calcium] 1,000 mg PO DAILY 05/17/18 Famotidine [Pepcid] 20 mg PO DAILY 05/17/18 Gabapentin [Neurontin -] 600 mg PO TID 05/17/18 Magnesium Chloride [Slow-Mag -] 64 mg PO DAILY 05/17/18 Multivit-Min36/Iron/Folic Acid 1 each PO DAILY 05/17/18 [Geritol Complete Tablet] levoFLOXacin [Levaquin -] 500 mg PO DAILY 05/17/18 ASSESSMENT AND PLAN: 72 yof with PMHx of Lupus since 1978 on Prednisone/plaquenil, PAD s/p right AKA 1996/s/p iliac stents (last in 2010) ?lupus nephritis, CKD (recent Cr 1.2), Anemia, lymphadenopathy (benign per records), HTN, HLD admitted with left foot cellulitis, suspect abscess +/- osteomyelitis. -Left cellulitis, suspected abscess +/- Osteomyelitis -Lupus since 1978 on prednisone/Plaquenil -PAD s/p right AKA 1996, PCI last in 2010 -CKD (?lupus nephritis) -Anemia -Lymphadenopathy -HTN -HLD Plan: Podiatry/ID/vascular surgery input noted For angiogram/debridement today. Blood/wound cx noted Aztreonam/vancomycin day 3, vanco levels noted. Unable to get MRI as metallic tattoo. For bone scan. Prednisone 5 mg. Hold plaquenil for now. Gentle hydration while on antibiotics. Pain control with Tylenol/Tramadol/Gabapentin. Continue Nifedipine/labetalol DVTPPX with heparin GI PPX famotidine Dispo pending clinical improvement. Plan discussed with patient and nursing in detail, all question answered.
[2018-05-19] MEDS ORDERED: PROPOFOL 20 ML ONE (14:39)
[2018-05-19] MEDS ORDERED: MIDAZOLAM HCL 2 MG/2 ML SINGLE DOSE VIAL ONE (14:39)
[2018-05-19] MEDS ORDERED: HEPARIN NA (PORCINE) 5,000 UNITS/ML 1ML VIAL ONE ×3 (14:43→15:39)
[2018-05-19] MEDS ORDERED: LIDOCAINE HCL 1%, 10 MG/ML (20ML VIAL) ONE (14:44)
[2018-05-19] MEDS ORDERED: BACITRACIN 15 GM TUBE TOPICAL OINTMENT ONE (14:44)
[2018-05-19] MEDS ORDERED: LIDOCAINE HCL 1%, 10 MG/ML (20ML VIAL) NR ONE (15:17)
[2018-05-19] MEDS ORDERED: HEPARIN NA (PORCINE) 5,000 UNITS/ML 1ML VIAL SQ ONE (15:20)
--- NOTE | 2018-05-19 16:49 | OP ---
Operative Note - Note: Operative Date: 05/19/18 Pre-Operative Diagnosis: Left foot wound. PAD Operation: Revascularization left tibial artery with atherectomy and angioplasty x 2. Incision left foot wound Findings: 80% stenosis distal TP trunk at bifurcation Diffuse 70% narrowing of ARABELLA. Runoff to foot via CLAM DREDGER. No pus in metatarsal wound. Post-Operative Diagnosis: Same as Pre-op Surgeon: Angel Gomez Anesthesiologist/[facility] DIRECTOR: Sheila Cardenas Anesthesia: Fractional Operative Report Dictated: Yes
[2018-05-19] MEDS ORDERED: MAG HYDROX/AL HYDROX/SIMETH 30 ML UNIT-DOSE CUP PO PRN (17:21)
[2018-05-19] MEDS ORDERED: ONDANSETRON 4 MG/2 ML VIAL IVPUSH PRN (17:29)
[2018-05-19] MEDS: VANCOMYCIN 1 GRAM (PRE-DOCKED) 1,000 MG/250 ML BAG IVPB SCH (17:49)
[2018-05-19] MEDS: CLOPIDOGREL BISULFATE 75 MG TABLET (FP) PO SCH ×2 (18:00→18:20)
[2018-05-19] MEDS: ASPIRIN 81 MG CHEWABLE TABLETS PO SCH ×2 (18:00→18:20)
[2018-05-19] MEDS: SODIUM CHLORIDE 1,000 ML IV SCH (18:20)
[2018-05-19] MEDS: traMADol HCL 50 MG TABLET PO PRN (18:29)
[2018-05-19] MEDS: ACETAMINOPHEN 325 MG TABLET (FP) PO PRN (20:29)
[2018-05-20] MEDS ORDERED: PT OWN MED DRAWER 7, Y5N ONE ×5 (02:51→20:59)
[2018-05-20] MEDS: AZTREONAM 2 GM in DEXTROSE 5%-WATER 100 ML IVPB SCH ×3 (03:13→17:27)
[2018-05-20] MEDS: traMADol HCL 50 MG TABLET PO PRN ×3 (04:11→21:13)
[2018-05-20] MEDS: ACETAMINOPHEN 325 MG TABLET (FP) PO PRN (06:48)
[2018-05-20] MEDS: GABAPENTIN 300 MG CAPSULE (FP) PO SCH ×3 (06:49→21:09)
[2018-05-20 08:21] LABS: HEMATOCRIT 28.3 % (32.4-45.2); HEMOGLOBIN 9.4 GM/dL (10.7-15.3); MCH 26.7 pg (25.7-33.7); MCHC 33.1 g/dl (32.0-36.0); MEAN CELL VOLUME 80.9 fl (80-96); MEAN PLT VOLUME 7.8 fl (7.5-11.1); PLATELET COUNT 350 K/MM3 (134-434); RDW 16.5 % (11.6-15.6); WHITE BLOOD COUNT 10.4 K/mm3 (4.0-10.0)
[2018-05-20 08:51] LABS: ANION GAP 8 MMOL/L (8-16); BLOOD UREA NITROGEN 20 mg/dL (7-18); CALCIUM 8.4 mg/dL (8.5-10.1); CHLORIDE 108 mmol/L (98-107); CO2 22 mmol/L (21-32); CREATININE 0.9 mg/dL (0.55-1.3); GLUCOSE,RANDOM 83 mg/dL (74-106); POTASSIUM 3.9 mmol/L (3.5-5.1); SODIUM 138 mmol/L (136-145)
--- NOTE | 2018-05-20 09:48 | PN ---
Progress Note (short form) - Note Progress Note: POD 1, s/p Revascularization left tibial artery with atherectomy and angioplasty x 2. Incision right foot wound Pt seen and examined on AM rounds. States she is doing well this morning. Has some pain in her left foot at the surgical site. Has not been oob. Tolerating PO. Denies cp/sob, n/v/d, calf pain/edema. Vital Signs Temp 98.5 F 05/20/18 05:57 Pulse 70 05/20/18 05:57 Resp 20 05/20/18 05:57 BP 134/66 05/20/18 05:57 Pulse Ox 96 05/19/18 18:38 Intake & Output 05/19/18 05/19/18 05/20/18 11:59 23:59 11:59 Intake Total 550 850 Output Total 1020 Balance 550 -170 Intake: IV 450 450 Normal Saline - 1,000 ml 450 @ 75 mls/hr IV ASDIR [facility] Rx#:[id number] IVPB 100 100 Oral 300 Output: Urine 1000 Void 600 Estimated Blood Loss 20 Other: Voiding Method Bedpan Bedpan # Unmeasured Voids Void 1 1 Bowel Movement No # Bowel Movements 0 CBC, BMP 05/20/18 07:30 05/20/18 07:30 Gen: awake, alert, nad, sitting up in bed with breakfast tra bedside Resp: unlabored on RA Groin: L groin with bandage in place. Limited exam secondary to discomfort/ pain. No palpable hematoma/thrill, no audible bruit. LLE: Dressing removed, small incision overlying 1st metatarsal head, no erythema , +TTP, no purulent drainage expressed, minimal serous drainage. +ecchymosis tracking to medial aspect of foot, unchanged per pt. Vasc: palpable PT LLE, dp not appreciated. A/P: 72 y/o F w/ PMHx Lupus since 1978 on Prednisone/plaquenil, PAD s/p right AKA 1996/s/p iliac stents (last in 2010) ?lupus nephritis, CKD, Anemia, lymphadenopathy, HTN, HLD admitted 05/17 for progressive left foot pain/swelling/ redness/drainage, now POD 1, s/p Re-vascularization left tibial artery with atherectomy and angioplasty x 2. Incision right foot wound Afebrile, vss. Wound does not appear clinically infected at this time. -Daily dressing changes, clean with normal saline, cover with 4x4 and kerlix, offloading to area -Continue plavix 75mg qd, continue asa 81mg qd -Pain control -Remainder of care per primary team -Pt should f/u outpt with Dr Gomez in 10-14 days
[2018-05-20] MEDS: NIFEdipine E.R 60 MG TABLET (UD) PO SCH ×2 (10:25→21:09)
[2018-05-20] MEDS: predniSONE 5 MG TABLET (UD) PO SCH (10:33)
[2018-05-20] MEDS: CLOPIDOGREL BISULFATE 75 MG TABLET (FP) PO SCH (10:33)
[2018-05-20] MEDS: LABETALOL HCL 200 MG TABLET (FP) PO SCH ×2 (10:33→21:09)
[2018-05-20] MEDS: ASPIRIN 81 MG CHEWABLE TABLETS PO SCH (10:34)
[2018-05-20] MEDS: PANTOPRAZOLE 40 MG TABLET (FP) PO SCH (10:34)
--- NOTE | 2018-05-20 10:48 | PN ---
Progress Note, Physician History of Present Illness: patient doing well had the procedure done wound done - Current Medication List Current Medications: Active Medications Acetaminophen (Tylenol -) 650 mg PO Q4H PRN PRN Reason: PAIN LEVEL 1-5 Last Admin: 05/20/18 06:48 Dose: 650 mg Al Hydroxide/Mg Hydroxide (Mylanta Oral Suspension -) 30 ml PO Q6H PRN PRN Reason: DYSPEPSIA Aspirin (Asa -) 81 mg PO DAILY [facility] Last Admin: 05/20/18 10:34 Dose: 81 mg Clopidogrel Bisulfate (Plavix -) 75 mg PO DAILY [facility] Last Admin: 05/20/18 10:33 Dose: 75 mg Fentanyl (Sublimaze Injection -) 25 mcg IVPUSH Q5M PRN PRN Reason: PAIN-PACU ORDER X 4 DOSES ONLY Last Admin: 05/19/18 17:30 Dose: 25 mcg Gabapentin (Neurontin -) 600 mg PO TID [facility] Last Admin: 05/20/18 06:49 Dose: 600 mg Aztreonam 2 gm/ Dextrose 100 mls @ 200 mls/hr IVPB Q8H-IV [facility]; Protocol Last Admin: 05/20/18 10:34 Dose: 200 mls/hr Sodium Chloride (Normal Saline -) 1,000 mls @ 75 mls/hr IV ASDIR [facility] Last Admin: 05/19/18 18:20 Dose: 75 mls/hr Vancomycin HCl (Vancomycin (Pre-Docked)) 1,000 mg in 250 mls @ 200 mls/hr IVPB Q24H [facility]; Protocol Labetalol HCl (Normodyne -) 200 mg PO BID [facility] Last Admin: 05/20/18 10:33 Dose: 200 mg Nifedipine (Procardia Xl -) 60 mg PO BID [facility] Last Admin: 05/19/18 21:41 Dose: 60 mg Ondansetron HCl (Zofran Injection) 4 mg IVPUSH Q6H PRN PRN Reason: NAUSEA AND/OR VOMITING Pantoprazole Sodium (Protonix -) 40 mg PO DAILY [facility] Last Admin: 05/20/18 10:34 Dose: 40 mg Prednisone (Deltasone -) 5 mg PO DAILY [facility] Last Admin: 05/20/18 10:33 Dose: 5 mg Tramadol HCl (Ultram -) 50 mg PO Q6H PRN PRN Reason: PAIN LEVEL 6-10 Last Admin: 05/20/18 10:41 Dose: 50 mg - Objective Vital Signs: Vital Signs Temperature 98.5 F 05/20/18 05:57 Pulse Rate 70 05/20/18 05:57 Respiratory Rate 20 05/20/18 05:57 Blood Pressure 134/66 05/20/18 05:57 O2 Sat by Pulse Oximetry (%) 96 05/19/18 18:38 Constitutional: Yes: No Distress, Calm Neck: Yes: Supple, Trachea Midline Respiratory: Yes: Regular, CTA Bilaterally Gastrointestinal: Yes: Normal Bowel Sounds, Soft Musculoskeletal: Yes: WNL Extremities: Yes: WNL Wound/Incision: Yes: Dressing Dry and Intact Neurological: Yes: Alert, Oriented Labs: CBC, BMP 05/20/18 07:30 05/20/18 07:30 INR, PTT INR 1.11 (0.83-1.09) H 05/19/18 07:17 Assessment/Plan Problem List - Problems (1) Left foot infection Code(s): L08.9 - LOCAL INFECTION OF THE SKIN AND SUBCUTANEOUS TISSUE, UNSP (2) Amputated right leg Code(s): Z89.611 - ACQUIRED ABSENCE OF RIGHT LEG ABOVE KNEE (3) Anemia Code(s): D64.9 - ANEMIA, UNSPECIFIED Qualifiers: Anemia type: unspecified type Qualified Code(s): D64.9 - Anemia, unspecified (4) HTN (hypertension) Code(s): I10 - ESSENTIAL (PRIMARY) HYPERTENSION (5) Hx of AKA (above knee amputation) Code(s): Z89.619 - ACQUIRED ABSENCE OF UNSPECIFIED LEG ABOVE KNEE (6) Hydronephrosis Code(s): N13.30 - UNSPECIFIED HYDRONEPHROSIS (7) Lupus (systemic lupus erythematosus) Code(s): M32.9 - SYSTEMIC LUPUS ERYTHEMATOSUS, UNSPECIFIED (8) Ureteral obstruction, right Code(s): N13.5 - CROSSING VESSEL AND STRICTURE OF URETER W/O HYDRONEPHROSIS plan will stop vanco await for bone scan rest continue current mgmt patient doing well
--- NOTE | 2018-05-20 11:53 | PN ---
Physical Exam: SUBJECTIVE: Patient seen and examined by me at bedside No acute events overnight S/P Revascularization left tibial artery with atherectomy and agioplasty and Incision right foot wound by Dr. Gomez (05/20/18). Found to have 80% stenosis distal TP trunk at bifurcation and Diffuse 70% narrowing of ARABELLA. Otherwise, patient denies any fever, chills, nausea, vomiting, abdominal pain, chest pain, palpitations, shortness of breath, headaches. OBJECTIVE: Vital Signs Period Temp Pulse Resp BP Sys/[place] Pulse Ox Last 24 Hr 97.9 F-98.9 F 70-83 14-22 134-159/50-67 96-100 GENERAL: The patient is awake, alert, and fully oriented, in no acute distress. EYES: Sclera anicteric, conjunctiva clear. No ptosis. ENT: Oropharynx clear without exudates, moist mucous membranes. LUNGS: Breath sounds equal, clear to auscultation bilaterally, no wheezes, no crackles, no accessory muscle use. HEART: Regular rate and rhythm, Normal S1 and S2 without murmur, rub or gallop. ABDOMEN: Soft, nontender, nondistended, normoactive bowel sounds EXTREMITIES: No edema. PSYCH: Normal mood, normal affect. SKIN: Left dressing c/d/i with (+) pt pulses Laboratory Results - last 24 hr 05/20/18 05/20/18 07:30 07:30 WBC 10.4 H RBC 3.50 L Hgb 9.4 L Hct 28.3 L MCV 80.9 MCH 26.7 MCHC 33.1 RDW 16.5 H Plt Count 350 MPV 7.8 Sodium 138 Potassium 3.9 Chloride 108 H Carbon Dioxide 22 Anion Gap 8 BUN 20 H Creatinine 0.9 Creat Clearance w eGFR > 60 Random Glucose 83 Calcium 8.4 L Active Medications Generic Name Dose Route Start Last Admin Trade Name Freq PRN Reason Stop Dose Admin Acetaminophen 650 mg 05/19/18 17:21 05/20/18 06:48 Tylenol - PO 650 mg Q4H PRN Administration PAIN LEVEL 1-5 Al Hydroxide/Mg Hydroxide 30 ml 05/19/18 17:21 Mylanta Oral Suspension - PO Q6H PRN DYSPEPSIA Aspirin 81 mg 05/19/18 17:21 05/20/18 10:34 Asa - PO 81 mg DAILY [facility] Administration Clopidogrel Bisulfate 75 mg 05/19/18 17:21 05/20/18 10:33 Plavix - PO 75 mg DAILY [facility] Administration Fentanyl 25 mcg 05/19/18 17:29 05/19/18 17:30 Sublimaze Injection - IVPUSH 25 mcg Q5M PRN Administration PAIN-PACU ORDER X 4 DOSES ONLY Gabapentin 600 mg 05/19/18 22:00 05/20/18 06:49 Neurontin - PO 600 mg TID [facility] Administration Aztreonam 2 gm/ Dextrose 100 mls @ 200 mls/hr 05/19/18 18:00 05/20/18 10:34 IVPB 200 mls/hr Q8H-IV [facility] Administration Protocol Sodium Chloride 1,000 mls @ 75 mls/hr 05/19/18 17:21 05/19/18 18:20 Normal Saline - IV 75 mls/hr ASDIR [facility] Administration Labetalol HCl 200 mg 05/19/18 22:00 05/20/18 10:33 Normodyne - PO 200 mg BID [facility] Administration Nifedipine 60 mg 05/19/18 22:00 05/19/18 21:41 Procardia Xl - PO 60 mg BID [facility] Administration Ondansetron HCl 4 mg 05/19/18 17:29 Zofran Injection IVPUSH Q6H PRN NAUSEA AND/OR VOMITING Pantoprazole Sodium 40 mg 05/20/18 10:00 05/20/18 10:34 Protonix - PO 40 mg DAILY [facility] Administration Prednisone 5 mg 05/20/18 10:00 05/20/18 10:33 Deltasone - PO 5 mg DAILY [facility] Administration Tramadol HCl 50 mg 05/19/18 17:21 05/20/18 10:41 Ultram - PO 50 mg Q6H PRN Administration PAIN LEVEL 6-10 ASSESSMENT/PLAN: Patient is a 72 year old female with a PMHx of Lupus since 1978 (On prednisone and Plaquenil), PAD s/p right AKA with iliac stent placements, CKD, Anemia of chronic disease, HTN, HLD, who presented for left foot pain and was found to have cellulitis. Left Foot Cellulitis -Possibly Osteomyelitis -S/P Incision right foot wound by Dr. Gomez (05/20/18) with no pus in metatarsal wound. -Blood cultures negative -Continue Aztreonam 2gm Q8H (day #3). vancomycin discontinued, as per ID -Continue IV Fluids with NS @75mls/hr -Unable to have MRI of the foot done due to patient having permanent eyeliner which contains lead/metal -Triple phase Bone scan to be done instead -Podiatry consult Lupus -Currently on Prednisone and Plaquenil at home -Continue Prednisone 5mg daily -Discontinue Plaquenil for now PAD s/p Right AKA and PCI -S/P Revascularization left tibial artery with atherectomy and agioplasty and Incision right foot wound by Dr. Gomez (05/20/18). Found to have 80% stenosis distal TP trunk at bifurcation and Diffuse 70% narrowing of ARABELLA. Run off done -Pain control with Tylenol, Tramadol and Gabapentin CKD -Possibly lupus nephritis -Kidney function stable -Continue IV hydration with NS @75mls/hr -Continue to monitor BMP HTN -Continue Nifedipine 60mg BID -Continue Labetolol 200mg BID -Continue to monitor BP F/E/N -IV NS @75mls/hr -Electrolytes wnl -NPO until after procedure Prophylaxis -Heparin 5000 units SQ TID for DVT -Famotidine 40mg daily for GI Disposition -Full code -S/P debridement. Will need bone scan Charlette Stewart [id number] Visit type - Emergency Visit Emergency Visit: Yes ED Registration Date: 05/17/18 Care time: The patient presented to the Emergency Department on the above date and was hospitalized for further evaluation of their emergent condition. - New Patient This patient is new to me today: No - Critical Care Critical Care patient: No
[2018-05-20] MEDS ORDERED: VANCOMYCIN 1 GRAM (PRE-DOCKED) 1,000 MG/250 ML BAG IVPB SCH (15:00)
--- NOTE | 2018-05-20 16:24 | PN ---
Teaching Attending Note Name of Resident: Charlette Stewart ATTENDING PHYSICIAN STATEMENT I saw and evaluated the patient. I reviewed the resident's note and discussed the case with the resident. I agree with the resident's findings and plan as documented. SUBJECTIVE: Ms Trent says she is having some pain in her foot but otherwise she is without complaint. No cp, sob, n/v. OBJECTIVE: Last Vital Signs Temp Pulse Resp BP Pulse Ox 37.0 C 70 18 148/57 L 95 05/20/18 13:56 05/20/18 13:56 05/20/18 13:56 05/20/18 13:56 05/20/18 09:00 Gen: nad Pulm: ctab w/o w/r/r CV: rrr w/o m/r/g Abd: +bs, s/nt/nd Ext: LLE wrapped CBC, BMP 05/20/18 07:30 05/20/18 07:30 ASSESSMENT AND PLAN: -continue aztreonam -bone scan to evaluate for osteomyelitis -continue current management Problem List - Problems (1) Left foot infection Code(s): L08.9 - LOCAL INFECTION OF THE SKIN AND SUBCUTANEOUS TISSUE, UNSP (2) Atherosclerosis of [place] arteries of left leg with ulceration of other part of foot Code(s): I70.245 - ATHSCL [place] ARTERIES OF LEFT LEG W ULCERATION OTH PRT FOOT (3) Acute on chronic renal failure Code(s): N17.9 - ACUTE KIDNEY FAILURE, UNSPECIFIED; N18.9 - CHRONIC KIDNEY DISEASE, UNSPECIFIED Qualifiers: Acute renal failure type: unspecified Chronic kidney disease stage: unspecified stage Qualified Code(s): N17.9 - Acute kidney failure, unspecified ; N18.9 - Chronic kidney disease, unspecified; N18.9 - Chronic kidney disease, unspecified (4) HTN (hypertension) Code(s): I10 - ESSENTIAL (PRIMARY) HYPERTENSION (5) Hx of AKA (above knee amputation) Code(s): Z89.619 - ACQUIRED ABSENCE OF UNSPECIFIED LEG ABOVE KNEE (6) Lupus (systemic lupus erythematosus) Code(s): M32.9 - SYSTEMIC LUPUS ERYTHEMATOSUS, UNSPECIFIED
[2018-05-20] MEDS: SODIUM CHLORIDE 1,000 ML IV SCH (18:08)
[2018-05-21] MEDS ORDERED: PT OWN MED DRAWER 7, Y5N ONE ×5 (02:39→21:22)
[2018-05-21] MEDS: AZTREONAM 2 GM in DEXTROSE 5%-WATER 100 ML IVPB SCH ×3 (02:40→17:22)
[2018-05-21] MEDS: GABAPENTIN 300 MG CAPSULE (FP) PO SCH ×3 (05:54→21:54)
[2018-05-21] MEDS: ACETAMINOPHEN 325 MG TABLET (FP) PO PRN (05:56)
[2018-05-21 07:20] LABS: MCH 26.2 pg (25.7-33.7); MCHC 32.1 g/dl (32.0-36.0); MEAN CELL VOLUME 81.6 fl (80-96); MEAN PLT VOLUME 7.9 fl (7.5-11.1); PLATELET COUNT 354 K/MM3 (134-434); RBC 3.44 M/mm3 (3.60-5.2); RDW 16.7 % (11.6-15.6); WHITE BLOOD COUNT 16.7 K/mm3 (4.0-10.0)
[2018-05-21 07:43] LABS: ANION GAP 10 MMOL/L (8-16); BLOOD UREA NITROGEN 18 mg/dL (7-18); CALCIUM 7.9 mg/dL (8.5-10.1); CHLORIDE 111 mmol/L (98-107); CO2 20 mmol/L (21-32); GLUCOSE,RANDOM 93 mg/dL (74-106); POTASSIUM 3.8 mmol/L (3.5-5.1); SODIUM 140 mmol/L (136-145)
--- NOTE | 2018-05-21 08:07 | PN ---
Physical Exam: SUBJECTIVE: Patient seen and examined by me at bedside. No acute events overnight. Patient reports feeling more weak today with some pain to her LLE. However, has adequate control with her pain medications. Patient is emotional today. Otherwise, patient denies any fever, chills, nausea, vomiting, abdominal pain, chest pain, palpitations, shortness of breath, headaches. OBJECTIVE: Vital Signs Period Temp Pulse Resp BP Sys/[place] Pulse Ox Last 24 Hr 98.3 F-100.0 F 70-87 18-20 144-148/51-62 95-95 GENERAL: The patient is awake, alert, and fully oriented, in no acute distress. EYES: Sclera anicteric, conjunctiva clear. No ptosis. ENT: Oropharynx clear without exudates, moist mucous membranes. LUNGS: Breath sounds equal, clear to auscultation bilaterally, no wheezes, no crackles, no accessory muscle use. HEART: Regular rate and rhythm, Normal S1 and S2 without murmur, rub or gallop. ABDOMEN: Soft, nontender, nondistended, normoactive bowel sounds EXTREMITIES: (+) Increasing erythema, warmth and redness of left grewal extending from above the ankle to the mid grewal and lateral aspect of the leg. SKIN: Left dressing c/d/i with (+) pt pulses of left foot Laboratory Results 05/21/18 06:30 05/21/18 06:30 Active Medications Generic Name Dose Route Start Last Admin Trade Name Freq PRN Reason Stop Dose Admin Acetaminophen 650 mg 05/19/18 17:21 05/21/18 05:56 Tylenol - PO 650 mg Q4H PRN Administration PAIN LEVEL 1-5 Al Hydroxide/Mg Hydroxide 30 ml 05/19/18 17:21 Mylanta Oral Suspension - PO Q6H PRN DYSPEPSIA Aspirin 81 mg 05/19/18 17:21 05/20/18 10:34 Asa - PO 81 mg DAILY [facility] Administration Clopidogrel Bisulfate 75 mg 05/19/18 17:21 05/20/18 10:33 Plavix - PO 75 mg DAILY [facility] Administration Fentanyl 25 mcg 05/19/18 17:29 05/19/18 17:30 Sublimaze Injection - IVPUSH 25 mcg Q5M PRN Administration PAIN-PACU ORDER X 4 DOSES ONLY Gabapentin 600 mg 05/19/18 22:00 05/21/18 05:54 Neurontin - PO 600 mg TID [facility] Administration Aztreonam 2 gm/ Dextrose 100 mls @ 200 mls/hr 05/19/18 18:00 05/21/18 02:40 IVPB 200 mls/hr Q8H-IV [facility] Administration Protocol Sodium Chloride 1,000 mls @ 75 mls/hr 05/19/18 17:21 05/20/18 18:08 Normal Saline - IV 75 mls/hr ASDIR [facility] Administration Labetalol HCl 200 mg 05/19/18 22:00 05/20/18 21:09 Normodyne - PO 200 mg BID [facility] Administration Nifedipine 60 mg 05/19/18 22:00 05/20/18 21:09 Procardia Xl - PO 60 mg BID [facility] Administration Ondansetron HCl 4 mg 05/19/18 17:29 Zofran Injection IVPUSH Q6H PRN NAUSEA AND/OR VOMITING Pantoprazole Sodium 40 mg 05/20/18 10:00 05/20/18 10:34 Protonix - PO 40 mg DAILY [facility] Administration Prednisone 5 mg 05/20/18 10:00 05/20/18 10:33 Deltasone - PO 5 mg DAILY [facility] Administration Tramadol HCl 50 mg 05/19/18 17:21 05/20/18 21:13 Ultram - PO 50 mg Q6H PRN Administration PAIN LEVEL 6-10 ASSESSMENT/PLAN: Patient is a 72 year old female with a PMHx of Lupus since 1978 (On prednisone and Plaquenil), PAD s/p right AKA with iliac stent placements, CKD, Anemia of chronic disease, HTN, HLD, who presented for left foot pain and was found to have cellulitis. Left Foot Cellulitis -Possibly Osteomyelitis -S/P Incision right foot wound by Dr. Gomez (05/20/18) with no pus in metatarsal wound. -Blood cultures negative -Continue Aztreonam 2gm Q8H (day #4). vancomycin discontinued, as per ID -Fluids discontinued -Unable to have MRI of the foot done due to patient having permanent eyeliner which contains lead/metal -Triple phase Bone scan to be done instead Lupus -Currently on Prednisone and Plaquenil at home -Continue Prednisone 5mg daily -Discontinue Plaquenil for now PAD s/p Right AKA and PCI -S/P Revascularization left tibial artery with atherectomy and agioplasty and Incision right foot wound by Dr. Gomez (05/20/18). Found to have 80% stenosis distal TP trunk at bifurcation and Diffuse 70% narrowing of ARABELLA. Run off done -Pain control with Tylenol, Tramadol and Gabapentin CKD -Possibly lupus nephritis -Kidney function stable -Continue IV hydration with NS @75mls/hr -Continue to monitor BMP HTN -Continue Nifedipine 60mg BID -Continue Labetolol 200mg BID -Continue to monitor BP F/E/N -IV NS @75mls/hr -Electrolytes wnl -NPO until after procedure Prophylaxis -Heparin 5000 units SQ TID for DVT -Famotidine 40mg daily for GI Disposition -Full code -S/P debridement. Will need bone scan Charlette Stewart MD-[id number] Visit type - Emergency Visit Emergency Visit: Yes ED Registration Date: 05/17/18 Care time: The patient presented to the Emergency Department on the above date and was hospitalized for further evaluation of their emergent condition. - New Patient This patient is new to me today: No - Critical Care Critical Care patient: No
[2018-05-21] MEDS: ASPIRIN 81 MG CHEWABLE TABLETS PO SCH (09:56)
[2018-05-21] MEDS: predniSONE 5 MG TABLET (UD) PO SCH (09:56)
[2018-05-21] MEDS: PANTOPRAZOLE 40 MG TABLET (FP) PO SCH (09:56)
[2018-05-21] MEDS: LABETALOL HCL 200 MG TABLET (FP) PO SCH ×2 (09:56→21:54)
[2018-05-21] MEDS: CLOPIDOGREL BISULFATE 75 MG TABLET (FP) PO SCH (09:56)
[2018-05-21] MEDS: NIFEdipine E.R 60 MG TABLET (UD) PO SCH ×2 (09:56→21:54)
--- NOTE | 2018-05-21 13:17 | PN ---
Teaching Attending Note Name of Resident: Charlette Stewart ATTENDING PHYSICIAN STATEMENT I saw and evaluated the patient. I reviewed the resident's note and discussed the case with the resident. I agree with the resident's findings and plan as documented. SUBJECTIVE: Ms Trent complains of L foot pain. No cp, sob, n/v. OBJECTIVE: Last Vital Signs Temp Pulse Resp BP Pulse Ox 37.3 C 89 20 147/56 L 95 05/21/18 08:39 05/21/18 08:39 05/21/18 08:39 05/21/18 08:39 05/21/18 09:00 Gen: nad Pulm: ctab w/o w/r/r CV: rrr w/o m/r/g Abd: +bs, s/nt/nd Ext: LLE erythema, increased from yesterday. L foot swollen and erythematous, no drainage from incision CBC, BMP 05/21/18 06:30 05/21/18 06:30 ASSESSMENT AND PLAN: Problem List - Problems (1) Left foot infection Assessment/Plan: -tri phase bone scan showing concern for osteomyelitis -also concerning is increased erythema and leukcytosis -case d/w Dr Cervantes -continue aztreonam -if does not improve, will need second agent Code(s): L08.9 - LOCAL INFECTION OF THE SKIN AND SUBCUTANEOUS TISSUE, UNSP (2) Atherosclerosis of [place] arteries of left leg with ulceration of other part of foot Assessment/Plan: -underwent CT angiogram with stenting -good blood flow -continue aspirin and plavix Code(s): I70.245 - ATHSCL [place] ARTERIES OF LEFT LEG W ULCERATION OTH PRT FOOT (3) Acute on chronic renal failure Assessment/Plan: -resolved Code(s): N17.9 - ACUTE KIDNEY FAILURE, UNSPECIFIED; N18.9 - CHRONIC KIDNEY DISEASE, UNSPECIFIED Qualifiers: Acute renal failure type: unspecified Chronic kidney disease stage: unspecified stage Qualified Code(s): N17.9 - Acute kidney failure, unspecified ; N18.9 - Chronic kidney disease, unspecified; N18.9 - Chronic kidney disease, unspecified (4) HTN (hypertension) Assessment/Plan: -continue labetalol and nifedipine -slightly elevated, may need further adjustment Code(s): I10 - ESSENTIAL (PRIMARY) HYPERTENSION (5) Hx of AKA (above knee amputation) Code(s): Z89.619 - ACQUIRED ABSENCE OF UNSPECIFIED LEG ABOVE KNEE Qualifiers: Laterality: right Qualified Code(s): Z89.611 - Acquired absence of right leg above knee (6) Lupus (systemic lupus erythematosus) Assessment/Plan: -continue low dose prednisone Code(s): M32.9 - SYSTEMIC LUPUS ERYTHEMATOSUS, UNSPECIFIED
--- NOTE | 2018-05-21 13:58 | PN ---
Progress Note, Physician History of Present Illness: stable no new issues c/o of bone pain patient for second part of bone scan - Current Medication List Current Medications: Active Medications Acetaminophen (Tylenol -) 650 mg PO Q4H PRN PRN Reason: PAIN LEVEL 1-5 Last Admin: 05/21/18 05:56 Dose: 650 mg Al Hydroxide/Mg Hydroxide (Mylanta Oral Suspension -) 30 ml PO Q6H PRN PRN Reason: DYSPEPSIA Aspirin (Asa -) 81 mg PO DAILY [facility] Last Admin: 05/21/18 09:56 Dose: 81 mg Clopidogrel Bisulfate (Plavix -) 75 mg PO DAILY [facility] Last Admin: 05/21/18 09:56 Dose: 75 mg Fentanyl (Sublimaze Injection -) 25 mcg IVPUSH Q5M PRN PRN Reason: PAIN-PACU ORDER X 4 DOSES ONLY Last Admin: 05/19/18 17:30 Dose: 25 mcg Gabapentin (Neurontin -) 600 mg PO TID [facility] Last Admin: 05/21/18 13:46 Dose: 600 mg Aztreonam 2 gm/ Dextrose 100 mls @ 200 mls/hr IVPB Q8H-IV [facility]; Protocol Last Admin: 05/21/18 09:57 Dose: 200 mls/hr Sodium Chloride (Normal Saline -) 1,000 mls @ 75 mls/hr IV ASDIR [facility] Last Admin: 05/20/18 18:08 Dose: 75 mls/hr Labetalol HCl (Normodyne -) 200 mg PO BID [facility] Last Admin: 05/21/18 09:56 Dose: 200 mg Nifedipine (Procardia Xl -) 60 mg PO BID [facility] Last Admin: 05/21/18 09:56 Dose: 60 mg Ondansetron HCl (Zofran Injection) 4 mg IVPUSH Q6H PRN PRN Reason: NAUSEA AND/OR VOMITING Pantoprazole Sodium (Protonix -) 40 mg PO DAILY [facility] Last Admin: 05/21/18 09:56 Dose: 40 mg Prednisone (Deltasone -) 5 mg PO DAILY [facility] Last Admin: 05/21/18 09:56 Dose: 5 mg Tramadol HCl (Ultram -) 50 mg PO Q6H PRN PRN Reason: PAIN LEVEL 6-10 Last Admin: 05/20/18 21:13 Dose: 50 mg - Objective Vital Signs: Vital Signs Temperature 99.2 F 05/21/18 08:39 Pulse Rate 89 05/21/18 08:39 Respiratory Rate 20 05/21/18 08:39 Blood Pressure 147/56 L 05/21/18 08:39 O2 Sat by Pulse Oximetry (%) 95 05/21/18 09:00 Constitutional: Yes: No Distress, Calm Cardiovascular: Yes: Regular Rate and Rhythm Respiratory: Yes: Regular, CTA Bilaterally Gastrointestinal: Yes: Normal Bowel Sounds, Soft Musculoskeletal: Yes: WNL Extremities: Yes: Other Neurological: Yes: Alert, Oriented Psychiatric: Yes: Alert, Oriented Labs: CBC, BMP 05/21/18 06:30 05/21/18 06:30 INR, PTT INR 1.11 (0.83-1.09) H 05/19/18 07:17 Assessment/Plan Problem List - Problems (1) Left foot infection Code(s): L08.9 - LOCAL INFECTION OF THE SKIN AND SUBCUTANEOUS TISSUE, UNSP (2) Amputated right leg Code(s): Z89.611 - ACQUIRED ABSENCE OF RIGHT LEG ABOVE KNEE (3) Anemia Code(s): D64.9 - ANEMIA, UNSPECIFIED Qualifiers: Anemia type: unspecified type Qualified Code(s): D64.9 - Anemia, unspecified (4) HTN (hypertension) Code(s): I10 - ESSENTIAL (PRIMARY) HYPERTENSION (5) Hx of AKA (above knee amputation) Code(s): Z89.619 - ACQUIRED ABSENCE OF UNSPECIFIED LEG ABOVE KNEE (6) Hydronephrosis Code(s): N13.30 - UNSPECIFIED HYDRONEPHROSIS (7) Lupus (systemic lupus erythematosus) Code(s): M32.9 - SYSTEMIC LUPUS ERYTHEMATOSUS, UNSPECIFIED (8) Ureteral obstruction, right Code(s): N13.5 - CROSSING VESSEL AND STRICTURE OF URETER W/O HYDRONEPHROSIS plan continue current mgmt monitor wbc await for bone scan rest as per the team
[2018-05-21] MEDS: SODIUM CHLORIDE 1,000 ML IV SCH (17:23)
--- NOTE | 2018-05-21 20:49 | OP ---
DATE OF OPERATION: 05/19/2018 SURGEON: Pj Haney MD PROCEDURE: Revascularization of left posterior tibial artery with atherectomy and angioplasty. Revascularization of left anterior tibial artery. Incision of left foot wound. PREOPERATIVE DIAGNOSIS: Left foot wound with peripheral arterial disease. POSTOPERATIVE DIAGNOSIS: Left foot wound with peripheral arterial disease. ANESTHESIA: Fractional. ANESTHESIOLOGIST: Sheila Cardenas MD OPERATIVE FINDINGS: The femoral artery was patent. The popliteal artery was patent. There was an 80% narrowing at the bifurcation of the tibioperoneal trunk. The posterior tibial artery was patent into the foot. The anterior tibial artery was diffusely narrowed with runoff into a small dorsalis pedis artery in the foot. OPERATIVE PROCEDURE: Following routine patient identification with side and site verification, intravenous sedation was established. The left groin was prepped with ChloraPrep. Using real-time duplex imaging, the proximal left superficial femoral artery was identified. Lidocaine was infiltrated in the skin over the vessel and was cannulated under ultrasound guidance with the micropuncture needle. A wire was passed distally, and the needle exchanged for a 5-[place] catheter. The catheter was then exchanged over the wire for a 5-[place] sheath. Angiography was then performed with dilute contrast with the above-noted findings. The wire and catheter were then advanced distally into the posterior tibial artery. Patient was systemically heparinized. A CSI atherectomy device with a 1.25-mm was then used to perform rotational atherectomy of the distal tibioperoneal trunk and proximal posterior tibial artery. The vessel was then dilated with a 3-mm balloon. Repeat imaging showed resolution of the stenosis with 0% residual. The wire was then directed into the anterior tibial artery down to the level of the foot. Repeat atherectomy was then performed with the CSI device for the length of the vessel which was moderately calcified. The vessel was then dilated with a long 2.5-mm balloon. Repeat imaging revealed spasm in the vessel. Repeat angioplasty with the same balloon was performed, and there was improvement, although still some spasm distally. The wire and sheath were removed, and the arteriotomy site sealed with a MYNX device. The foot was then exposed and prepped with ChloraPrep. Next, 1% lidocaine was infiltrated over the first metatarsal head where a small wound was present. The wound was incised, and the subcutaneous tissues explored. There was no purulent material identified. The wound was covered with bacitracin ointment and a sterile dressing. The patient was then taken to the recovery room in stable condition. PJ HANEY M.D. CASH/[id number]
[2018-05-21] MEDS: PHENYLEPH/MINERAL OIL/PETROLAT 28 GM OINTMENT RC SCH (21:53)
[2018-05-21] MEDS: traMADol HCL 50 MG TABLET PO PRN (21:59)
[2018-05-22] MEDS ORDERED: PT OWN MED DRAWER 7, Y5N ONE ×7 (02:35→21:30)
[2018-05-22] MEDS: AZTREONAM 2 GM in DEXTROSE 5%-WATER 100 ML IVPB SCH ×3 (02:51→17:21)
[2018-05-22] MEDS: ACETAMINOPHEN 325 MG TABLET (FP) PO PRN ×2 (02:51→22:01)
[2018-05-22] MEDS: SODIUM CHLORIDE 1,000 ML IV SCH ×3 (02:53→21:58)
[2018-05-22] MEDS: PHENYLEPH/MINERAL OIL/PETROLAT 28 GM OINTMENT RC SCH ×3 (06:51→21:59)
[2018-05-22] MEDS: GABAPENTIN 300 MG CAPSULE (FP) PO SCH ×3 (06:52→21:59)
[2018-05-22] MEDS: traMADol HCL 50 MG TABLET PO PRN ×2 (06:52→19:40)
[2018-05-22 07:23] LABS: HEMATOCRIT 26.3 % (32.4-45.2); HEMOGLOBIN 8.6 GM/dL (10.7-15.3); MCH 26.8 pg (25.7-33.7); MCHC 32.7 g/dl (32.0-36.0); MEAN PLT VOLUME 8.1 fl (7.5-11.1); PLATELET COUNT 326 K/MM3 (134-434); RBC 3.21 M/mm3 (3.60-5.2); RDW 16.8 % (11.6-15.6); WHITE BLOOD COUNT 13.1 K/mm3 (4.0-10.0)
[2018-05-22] MEDS: LABETALOL HCL 200 MG TABLET (FP) PO SCH ×2 (09:40→21:59)
[2018-05-22] MEDS: ASPIRIN 81 MG CHEWABLE TABLETS PO SCH (09:40)
[2018-05-22] MEDS: PANTOPRAZOLE 40 MG TABLET (FP) PO SCH (09:40)
[2018-05-22] MEDS: predniSONE 5 MG TABLET (UD) PO SCH (09:40)
[2018-05-22] MEDS: CLOPIDOGREL BISULFATE 75 MG TABLET (FP) PO SCH (09:40)
[2018-05-22] MEDS: NIFEdipine E.R 60 MG TABLET (UD) PO SCH ×2 (09:47→21:59)
--- NOTE | 2018-05-22 10:19 | PN ---
Progress Note, Physician History of Present Illness: patient stable doing well no issues pain in the leg - Current Medication List Current Medications: Active Medications Acetaminophen (Tylenol -) 650 mg PO Q4H PRN PRN Reason: PAIN LEVEL 1-5 Last Admin: 05/22/18 02:51 Dose: 650 mg Al Hydroxide/Mg Hydroxide (Mylanta Oral Suspension -) 30 ml PO Q6H PRN PRN Reason: DYSPEPSIA Aspirin (Asa -) 81 mg PO DAILY [facility] Last Admin: 05/22/18 09:40 Dose: 81 mg Clopidogrel Bisulfate (Plavix -) 75 mg PO DAILY [facility] Last Admin: 05/22/18 09:40 Dose: 75 mg Fentanyl (Sublimaze Injection -) 25 mcg IVPUSH Q5M PRN PRN Reason: PAIN-PACU ORDER X 4 DOSES ONLY Last Admin: 05/19/18 17:30 Dose: 25 mcg Gabapentin (Neurontin -) 600 mg PO TID [facility] Last Admin: 05/22/18 06:52 Dose: 600 mg Aztreonam 2 gm/ Dextrose 100 mls @ 200 mls/hr IVPB Q8H-IV [facility]; Protocol Last Admin: 05/22/18 09:40 Dose: 200 mls/hr Sodium Chloride (Normal Saline -) 1,000 mls @ 75 mls/hr IV ASDIR [facility] Last Admin: 05/22/18 02:53 Dose: 75 mls/hr Labetalol HCl (Normodyne -) 200 mg PO BID [facility] Last Admin: 05/22/18 09:40 Dose: 200 mg Nifedipine (Procardia Xl -) 60 mg PO BID [facility] Last Admin: 05/22/18 09:47 Dose: 60 mg Ondansetron HCl (Zofran Injection) 4 mg IVPUSH Q6H PRN PRN Reason: NAUSEA AND/OR VOMITING Pantoprazole Sodium (Protonix -) 40 mg PO DAILY [facility] Last Admin: 05/22/18 09:40 Dose: 40 mg Prednisone (Deltasone -) 5 mg PO DAILY [facility] Last Admin: 05/22/18 09:40 Dose: 5 mg Tramadol HCl (Ultram -) 50 mg PO Q6H PRN PRN Reason: PAIN LEVEL 6-10 Last Admin: 05/22/18 06:52 Dose: 50 mg - Objective Vital Signs: Vital Signs Temperature 98.1 F 05/22/18 06:00 Pulse Rate 81 05/22/18 06:00 Respiratory Rate 18 05/22/18 06:00 Blood Pressure 131/69 05/22/18 06:00 O2 Sat by Pulse Oximetry (%) 95 05/21/18 09:00 Constitutional: Yes: Calm, Mild Distress Cardiovascular: Yes: Regular Rate and Rhythm Respiratory: Yes: Regular, CTA Bilaterally Gastrointestinal: Yes: Normal Bowel Sounds, Soft Musculoskeletal: Yes: WNL Extremities: Yes: Other Neurological: Yes: Alert, Oriented Psychiatric: Yes: Alert, Oriented Labs: CBC, BMP 05/22/18 06:40 05/21/18 06:30 INR, PTT INR 1.11 (0.83-1.09) H 05/19/18 07:17 Assessment/Plan Problem List - Problems (1) Left foot infection Code(s): L08.9 - LOCAL INFECTION OF THE SKIN AND SUBCUTANEOUS TISSUE, UNSP (2) Amputated right leg Code(s): Z89.611 - ACQUIRED ABSENCE OF RIGHT LEG ABOVE KNEE (3) Anemia Code(s): D64.9 - ANEMIA, UNSPECIFIED Qualifiers: Anemia type: unspecified type Qualified Code(s): D64.9 - Anemia, unspecified (4) HTN (hypertension) Code(s): I10 - ESSENTIAL (PRIMARY) HYPERTENSION (5) Hx of AKA (above knee amputation) Code(s): Z89.619 - ACQUIRED ABSENCE OF UNSPECIFIED LEG ABOVE KNEE (6) Hydronephrosis Code(s): N13.30 - UNSPECIFIED HYDRONEPHROSIS (7) Lupus (systemic lupus erythematosus) Code(s): M32.9 - SYSTEMIC LUPUS ERYTHEMATOSUS, UNSPECIFIED (8) Ureteral obstruction, right Code(s): N13.5 - CROSSING VESSEL AND STRICTURE OF URETER W/O HYDRONEPHROSIS plan continue current mgmt monitor wbc bone scan noted pain mgmt we will have to repeat the scan in couple of weeks as this report and scan is too inconclusive as well as was post procedure
--- NOTE | 2018-05-22 15:48 | PN ---
Progress Note, Physician Chief Complaint: Ms Trent says she is feeling better. Says the redness has improved. Denies cp, sob, n/v. - Current Medication List Current Medications: Active Medications Acetaminophen (Tylenol -) 650 mg PO Q4H PRN PRN Reason: PAIN LEVEL 1-5 Last Admin: 05/22/18 02:51 Dose: 650 mg Al Hydroxide/Mg Hydroxide (Mylanta Oral Suspension -) 30 ml PO Q6H PRN PRN Reason: DYSPEPSIA Aspirin (Asa -) 81 mg PO DAILY [facility] Last Admin: 05/22/18 09:40 Dose: 81 mg Clopidogrel Bisulfate (Plavix -) 75 mg PO DAILY [facility] Last Admin: 05/22/18 09:40 Dose: 75 mg Fentanyl (Sublimaze Injection -) 25 mcg IVPUSH Q5M PRN PRN Reason: PAIN-PACU ORDER X 4 DOSES ONLY Last Admin: 05/19/18 17:30 Dose: 25 mcg Gabapentin (Neurontin -) 600 mg PO TID [facility] Last Admin: 05/22/18 13:34 Dose: 600 mg Aztreonam 2 gm/ Dextrose 100 mls @ 200 mls/hr IVPB Q8H-IV [facility]; Protocol Last Admin: 05/22/18 09:40 Dose: 200 mls/hr Sodium Chloride (Normal Saline -) 1,000 mls @ 75 mls/hr IV ASDIR [facility] Last Admin: 05/22/18 02:53 Dose: 75 mls/hr Labetalol HCl (Normodyne -) 200 mg PO BID [facility] Last Admin: 05/22/18 09:40 Dose: 200 mg Nifedipine (Procardia Xl -) 60 mg PO BID [facility] Last Admin: 05/22/18 09:47 Dose: 60 mg Ondansetron HCl (Zofran Injection) 4 mg IVPUSH Q6H PRN PRN Reason: NAUSEA AND/OR VOMITING Pantoprazole Sodium (Protonix -) 40 mg PO DAILY [facility] Last Admin: 05/22/18 09:40 Dose: 40 mg Prednisone (Deltasone -) 5 mg PO DAILY [facility] Last Admin: 05/22/18 09:40 Dose: 5 mg Tramadol HCl (Ultram -) 50 mg PO Q6H PRN PRN Reason: PAIN LEVEL 6-10 Last Admin: 05/22/18 06:52 Dose: 50 mg - Objective Vital Signs: Vital Signs Temperature 37.1 C 05/22/18 15:01 Pulse Rate 87 05/22/18 15:01 Respiratory Rate 18 05/22/18 15:01 Blood Pressure 139/59 L 05/22/18 15:01 O2 Sat by Pulse Oximetry (%) 95 05/21/18 09:00 Constitutional: Yes: Well Nourished, No Distress, Calm Cardiovascular: Yes: Regular Rate and Rhythm. No: Gallop, Murmur, Rub Respiratory: Yes: Regular, CTA Bilaterally. No: Rales, Rhonchi, Wheezes Gastrointestinal: Yes: Normal Bowel Sounds, Soft. No: Distention, Tenderness Extremities: Yes: Erythema (L foot) Edema: Yes Edema: LLE: 1+ (foot) Labs: CBC, BMP 05/22/18 06:40 05/21/18 06:30 INR, PTT INR 1.11 (0.83-1.09) H 05/19/18 07:17 Problem List - Problems (1) Left foot infection Code(s): L08.9 - LOCAL INFECTION OF THE SKIN AND SUBCUTANEOUS TISSUE, UNSP (2) Atherosclerosis of [place] arteries of left leg with ulceration of other part of foot Code(s): I70.245 - ATHSCL [place] ARTERIES OF LEFT LEG W ULCERATION OTH PRT FOOT (3) Acute on chronic renal failure Code(s): N17.9 - ACUTE KIDNEY FAILURE, UNSPECIFIED; N18.9 - CHRONIC KIDNEY DISEASE, UNSPECIFIED Qualifiers: Acute renal failure type: unspecified Chronic kidney disease stage: unspecified stage Qualified Code(s): N17.9 - Acute kidney failure, unspecified ; N18.9 - Chronic kidney disease, unspecified; N18.9 - Chronic kidney disease, unspecified (4) HTN (hypertension) Code(s): I10 - ESSENTIAL (PRIMARY) HYPERTENSION (5) Hx of AKA (above knee amputation) Code(s): Z89.619 - ACQUIRED ABSENCE OF UNSPECIFIED LEG ABOVE KNEE Qualifiers: Laterality: right Qualified Code(s): Z89.611 - Acquired absence of right leg above knee (6) Lupus (systemic lupus erythematosus) Code(s): M32.9 - SYSTEMIC LUPUS ERYTHEMATOSUS, UNSPECIFIED Assessment/Plan (1) Left foot infection Assessment/Plan: -case d/w Dr Cervantes and bone scan reviewed -continue aztreonam -defer to ID about length of IV antibiotics Code(s): L08.9 - LOCAL INFECTION OF THE SKIN AND SUBCUTANEOUS TISSUE, UNSP (2) Atherosclerosis of [place] arteries of left leg with ulceration of other part of foot Assessment/Plan: -underwent CT angiogram with stenting -good blood flow -continue aspirin and plavix Code(s): I70.245 - ATHSCL [place] ARTERIES OF LEFT LEG W ULCERATION OTH PRT FOOT (3) Acute on chronic renal failure Assessment/Plan: -resolved Code(s): N17.9 - ACUTE KIDNEY FAILURE, UNSPECIFIED; N18.9 - CHRONIC KIDNEY DISEASE, UNSPECIFIED Qualifiers: Acute renal failure type: unspecified Chronic kidney disease stage: unspecified stage Qualified Code(s): N17.9 - Acute kidney failure, unspecified ; N18.9 - Chronic kidney disease, unspecified; N18.9 - Chronic kidney disease, unspecified (4) HTN (hypertension) Assessment/Plan: -continue labetalol and nifedipine -slightly elevated, may need further adjustment Code(s): I10 - ESSENTIAL (PRIMARY) HYPERTENSION (5) Hx of AKA (above knee amputation) Code(s): Z89.619 - ACQUIRED ABSENCE OF UNSPECIFIED LEG ABOVE KNEE Qualifiers: Laterality: right Qualified Code(s): Z89.611 - Acquired absence of right leg above knee (6) Lupus (systemic lupus erythematosus) Assessment/Plan: -continue low dose prednisone Code(s): M32.9 - SYSTEMIC LUPUS ERYTHEMATOSUS, UNSPECIFIED
--- NOTE | 2018-05-22 19:02 | PN ---
Progress Note (short form) - Note Progress Note: Patient seen for redness and pain left foot. BKA right leg. +tender, +erythema, s/p angiogram, elevated wbc=13.1, uric acid wnl, -drainage r/o abscess [place] a demarcation line to re-evaluate tomorrow. Will order a ultrasound if pain, redness do not subside. Uric acid wnl most likely not gout. Read and appreciated bone scan results. will follow.
[2018-05-23] MEDS ORDERED: PT OWN MED DRAWER 7, Y5N ONE ×4 (01:55→21:05)
[2018-05-23] MEDS: AZTREONAM 2 GM in DEXTROSE 5%-WATER 100 ML IVPB SCH ×3 (02:02→17:32)
[2018-05-23] MEDS: ACETAMINOPHEN 325 MG TABLET (FP) PO PRN ×2 (02:08→06:18)
[2018-05-23] MEDS: PHENYLEPH/MINERAL OIL/PETROLAT 28 GM OINTMENT RC SCH ×3 (06:18→22:00)
[2018-05-23] MEDS: GABAPENTIN 300 MG CAPSULE (FP) PO SCH ×3 (06:18→21:29)
[2018-05-23] MEDS: PANTOPRAZOLE 40 MG TABLET (FP) PO SCH (09:14)
[2018-05-23] MEDS: LABETALOL HCL 200 MG TABLET (FP) PO SCH ×2 (09:14→21:29)
[2018-05-23] MEDS: ASPIRIN 81 MG CHEWABLE TABLETS PO SCH (09:14)
[2018-05-23] MEDS: CLOPIDOGREL BISULFATE 75 MG TABLET (FP) PO SCH (09:14)
[2018-05-23] MEDS: predniSONE 5 MG TABLET (UD) PO SCH (09:14)
[2018-05-23] MEDS: NIFEdipine E.R 60 MG TABLET (UD) PO SCH ×2 (09:38→21:29)
--- NOTE | 2018-05-23 12:55 | PN ---
Progress Note, Physician History of Present Illness: stable no new issues pain improving redness improving - Current Medication List Current Medications: Active Medications Acetaminophen (Tylenol -) 650 mg PO Q4H PRN PRN Reason: PAIN LEVEL 1-5 Last Admin: 05/23/18 06:18 Dose: 650 mg Al Hydroxide/Mg Hydroxide (Mylanta Oral Suspension -) 30 ml PO Q6H PRN PRN Reason: DYSPEPSIA Aspirin (Asa -) 81 mg PO DAILY [facility] Last Admin: 05/23/18 09:14 Dose: 81 mg Clopidogrel Bisulfate (Plavix -) 75 mg PO DAILY [facility] Last Admin: 05/23/18 09:14 Dose: 75 mg Fentanyl (Sublimaze Injection -) 25 mcg IVPUSH Q5M PRN PRN Reason: PAIN-PACU ORDER X 4 DOSES ONLY Last Admin: 05/19/18 17:30 Dose: 25 mcg Gabapentin (Neurontin -) 600 mg PO TID [facility] Last Admin: 05/23/18 06:18 Dose: 600 mg Aztreonam 2 gm/ Dextrose 100 mls @ 200 mls/hr IVPB Q8H-IV [facility]; Protocol Last Admin: 05/23/18 09:15 Dose: 200 mls/hr Sodium Chloride (Normal Saline -) 1,000 mls @ 75 mls/hr IV ASDIR [facility] Last Admin: 05/22/18 21:58 Dose: 75 mls/hr Labetalol HCl (Normodyne -) 200 mg PO BID [facility] Last Admin: 05/23/18 09:14 Dose: 200 mg Nifedipine (Procardia Xl -) 60 mg PO BID [facility] Last Admin: 05/23/18 09:38 Dose: 60 mg Ondansetron HCl (Zofran Injection) 4 mg IVPUSH Q6H PRN PRN Reason: NAUSEA AND/OR VOMITING Pantoprazole Sodium (Protonix -) 40 mg PO DAILY [facility] Last Admin: 05/23/18 09:14 Dose: 40 mg Prednisone (Deltasone -) 5 mg PO DAILY [facility] Last Admin: 05/23/18 09:14 Dose: 5 mg Tramadol HCl (Ultram -) 50 mg PO Q6H PRN PRN Reason: PAIN LEVEL 6-10 Last Admin: 05/22/18 19:40 Dose: 50 mg - Objective Vital Signs: Vital Signs Temperature 99.1 F 05/23/18 10:00 Pulse Rate 94 H 05/23/18 10:00 Respiratory Rate 19 05/23/18 12:40 Blood Pressure 134/54 L 05/23/18 10:00 O2 Sat by Pulse Oximetry (%) 95 05/23/18 12:40 Constitutional: Yes: No Distress, Calm Cardiovascular: Yes: S1, S2 Respiratory: Yes: Regular, CTA Bilaterally Gastrointestinal: Yes: Normal Bowel Sounds, Soft Musculoskeletal: Yes: Other Extremities: Yes: Erythema (improved), Other Wound/Incision: Yes: Dressing Dry and Intact Neurological: Yes: Alert, Oriented Psychiatric: Yes: Alert, Oriented Labs: CBC, BMP 05/22/18 06:40 05/21/18 06:30 INR, PTT INR 1.11 (0.83-1.09) H 05/19/18 07:17 Assessment/Plan Problem List - Problems (1) Left foot infection Code(s): L08.9 - LOCAL INFECTION OF THE SKIN AND SUBCUTANEOUS TISSUE, UNSP (2) Amputated right leg Code(s): Z89.611 - ACQUIRED ABSENCE OF RIGHT LEG ABOVE KNEE (3) Anemia Code(s): D64.9 - ANEMIA, UNSPECIFIED Qualifiers: Anemia type: unspecified type Qualified Code(s): D64.9 - Anemia, unspecified (4) HTN (hypertension) Code(s): I10 - ESSENTIAL (PRIMARY) HYPERTENSION (5) Hx of AKA (above knee amputation) Code(s): Z89.619 - ACQUIRED ABSENCE OF UNSPECIFIED LEG ABOVE KNEE (6) Hydronephrosis Code(s): N13.30 - UNSPECIFIED HYDRONEPHROSIS (7) Lupus (systemic lupus erythematosus) Code(s): M32.9 - SYSTEMIC LUPUS ERYTHEMATOSUS, UNSPECIFIED (8) Ureteral obstruction, right Code(s): N13.5 - CROSSING VESSEL AND STRICTURE OF URETER W/O HYDRONEPHROSIS plan wbc trending down if everything is ok will see if we can switch to oral tomorrow rest as per the team wound care
[2018-05-23] MEDS: traMADol HCL 50 MG TABLET PO PRN ×2 (15:10→21:33)
--- NOTE | 2018-05-23 16:38 | PN ---
Progress Note, Physician Chief Complaint: Ms Trent complains of having a fever overnight but says feeling better today. No cp, sob, n/v. - Current Medication List Current Medications: Active Medications Acetaminophen (Tylenol -) 650 mg PO Q4H PRN PRN Reason: PAIN LEVEL 1-5 Last Admin: 05/23/18 06:18 Dose: 650 mg Al Hydroxide/Mg Hydroxide (Mylanta Oral Suspension -) 30 ml PO Q6H PRN PRN Reason: DYSPEPSIA Aspirin (Asa -) 81 mg PO DAILY [facility] Last Admin: 05/23/18 09:14 Dose: 81 mg Clopidogrel Bisulfate (Plavix -) 75 mg PO DAILY [facility] Last Admin: 05/23/18 09:14 Dose: 75 mg Fentanyl (Sublimaze Injection -) 25 mcg IVPUSH Q5M PRN PRN Reason: PAIN-PACU ORDER X 4 DOSES ONLY Last Admin: 05/19/18 17:30 Dose: 25 mcg Gabapentin (Neurontin -) 600 mg PO TID [facility] Last Admin: 05/23/18 14:27 Dose: 600 mg Aztreonam 2 gm/ Dextrose 100 mls @ 200 mls/hr IVPB Q8H-IV [facility]; Protocol Last Admin: 05/23/18 09:15 Dose: 200 mls/hr Sodium Chloride (Normal Saline -) 1,000 mls @ 75 mls/hr IV ASDIR [facility] Last Admin: 05/22/18 21:58 Dose: 75 mls/hr Labetalol HCl (Normodyne -) 200 mg PO BID [facility] Last Admin: 05/23/18 09:14 Dose: 200 mg Nifedipine (Procardia Xl -) 60 mg PO BID [facility] Last Admin: 05/23/18 09:38 Dose: 60 mg Ondansetron HCl (Zofran Injection) 4 mg IVPUSH Q6H PRN PRN Reason: NAUSEA AND/OR VOMITING Pantoprazole Sodium (Protonix -) 40 mg PO DAILY [facility] Last Admin: 05/23/18 09:14 Dose: 40 mg Prednisone (Deltasone -) 5 mg PO DAILY [facility] Last Admin: 05/23/18 09:14 Dose: 5 mg Tramadol HCl (Ultram -) 50 mg PO Q6H PRN PRN Reason: PAIN LEVEL 6-10 Last Admin: 05/23/18 15:10 Dose: 50 mg - Objective Vital Signs: Vital Signs Temperature 37.1 C 05/23/18 13:34 Pulse Rate 79 05/23/18 13:34 Respiratory Rate 20 05/23/18 13:34 Blood Pressure 121/54 L 05/23/18 13:34 O2 Sat by Pulse Oximetry (%) 95 05/23/18 12:40 Constitutional: Yes: Well Nourished, No Distress, Calm Cardiovascular: Yes: Regular Rate and Rhythm. No: Gallop, Murmur, Rub Respiratory: Yes: Regular, CTA Bilaterally. No: Rales, Rhonchi, Wheezes Gastrointestinal: Yes: Normal Bowel Sounds, Soft. No: Distention, Tenderness Extremities: Yes: WNL Edema: No Labs: CBC, BMP 05/22/18 06:40 05/21/18 06:30 INR, PTT INR 1.11 (0.83-1.09) H 05/19/18 07:17 Problem List - Problems (1) Left foot infection Code(s): L08.9 - LOCAL INFECTION OF THE SKIN AND SUBCUTANEOUS TISSUE, UNSP (2) Atherosclerosis of [place] arteries of left leg with ulceration of other part of foot Code(s): I70.245 - ATHSCL [place] ARTERIES OF LEFT LEG W ULCERATION OTH PRT FOOT (3) Acute on chronic renal failure Code(s): N17.9 - ACUTE KIDNEY FAILURE, UNSPECIFIED; N18.9 - CHRONIC KIDNEY DISEASE, UNSPECIFIED Qualifiers: Acute renal failure type: unspecified Chronic kidney disease stage: unspecified stage Qualified Code(s): N17.9 - Acute kidney failure, unspecified ; N18.9 - Chronic kidney disease, unspecified; N18.9 - Chronic kidney disease, unspecified (4) HTN (hypertension) Code(s): I10 - ESSENTIAL (PRIMARY) HYPERTENSION (5) Hx of AKA (above knee amputation) Code(s): Z89.619 - ACQUIRED ABSENCE OF UNSPECIFIED LEG ABOVE KNEE Qualifiers: Laterality: right Qualified Code(s): Z89.611 - Acquired absence of right leg above knee (6) Lupus (systemic lupus erythematosus) Code(s): M32.9 - SYSTEMIC LUPUS ERYTHEMATOSUS, UNSPECIFIED Assessment/Plan (1) Left foot infection Assessment/Plan: -continue aztreonam -fever yesterday but leukocytosis improving -ID note reviewed -possible transition to oral antibiotics tomorrow Code(s): L08.9 - LOCAL INFECTION OF THE SKIN AND SUBCUTANEOUS TISSUE, UNSP (2) Atherosclerosis of [place] arteries of left leg with ulceration of other part of foot Assessment/Plan: -underwent CT angiogram with stenting -good blood flow -continue aspirin and plavix Code(s): I70.245 - ATHSCL [place] ARTERIES OF LEFT LEG W ULCERATION OTH PRT FOOT (3) Acute on chronic renal failure Assessment/Plan: -resolved Code(s): N17.9 - ACUTE KIDNEY FAILURE, UNSPECIFIED; N18.9 - CHRONIC KIDNEY DISEASE, UNSPECIFIED Qualifiers: Acute renal failure type: unspecified Chronic kidney disease stage: unspecified stage Qualified Code(s): N17.9 - Acute kidney failure, unspecified ; N18.9 - Chronic kidney disease, unspecified; N18.9 - Chronic kidney disease, unspecified (4) HTN (hypertension) Assessment/Plan: -continue labetalol and nifedipine Code(s): I10 - ESSENTIAL (PRIMARY) HYPERTENSION (5) Hx of AKA (above knee amputation) Code(s): Z89.619 - ACQUIRED ABSENCE OF UNSPECIFIED LEG ABOVE KNEE Qualifiers: Laterality: right Qualified Code(s): Z89.611 - Acquired absence of right leg above knee (6) Lupus (systemic lupus erythematosus) Assessment/Plan: -continue low dose prednisone Code(s): M32.9 - SYSTEMIC LUPUS ERYTHEMATOSUS, UNSPECIFIED
[2018-05-23] MEDS: SODIUM CHLORIDE 1,000 ML IV SCH (17:33)
--- NOTE | 2018-05-23 17:48 | PN ---
Progress Note (short form) - Note Progress Note: Patient seen for redness and pain left foot. Tmax 101.5 +tender, +erythema, -drainage, +increasing erythema outside of demarcation line , r/o abscess cellulitis Ultrasound ordered. CRP and ESR ordered. CBC pending for tomorrow. If does not improve will discuss with vascular for possible I&D by vascular or Podiatry as Vascular has a history with patient. will follow.
[2018-05-24] MEDS: ACETAMINOPHEN 325 MG TABLET (FP) PO PRN (00:16)
[2018-05-24] MEDS: AZTREONAM 2 GM in DEXTROSE 5%-WATER 100 ML IVPB SCH ×3 (02:00→18:00)
[2018-05-24] MEDS ORDERED: PT OWN MED DRAWER 7, Y5N ONE ×5 (05:43→21:43)
[2018-05-24] MEDS: GABAPENTIN 300 MG CAPSULE (FP) PO SCH ×3 (05:51→21:56)
[2018-05-24] MEDS: SODIUM CHLORIDE 1,000 ML IV SCH (05:52)
[2018-05-24] MEDS: PHENYLEPH/MINERAL OIL/PETROLAT 28 GM OINTMENT RC SCH ×2 (07:00→14:31)
[2018-05-24 07:24] LABS: BASO % 0.7 % (0-2.0); EOS % 0.8 % (0-4.5); HEMATOCRIT 24.7 % (32.4-45.2); HEMOGLOBIN 8.4 GM/dL (10.7-15.3); LYMPH % 8.5 % (8-40); MCH 27.9 pg (25.7-33.7); MCHC 34.1 g/dl (32.0-36.0); MEAN CELL VOLUME 81.8 fl (80-96); MEAN PLT VOLUME 8.1 fl (7.5-11.1); MONO % 9.3 % (3.8-10.2); NEUT % 80.7 % (42.8-82.8); PLATELET COUNT 363 K/MM3 (134-434); RBC 3.02 M/mm3 (3.60-5.2); RDW 17.5 % (11.6-15.6); WHITE BLOOD COUNT 25.4 K/mm3 (4.0-10.0)
[2018-05-24 07:57] LABS: ANION GAP 10 MMOL/L (8-16); BLOOD UREA NITROGEN 15 mg/dL (7-18); CHLORIDE 112 mmol/L (98-107); CO2 21 mmol/L (21-32); GLUCOSE,RANDOM 102 mg/dL (74-106); MAGNESIUM 1.8 mg/dL (1.8-2.4); PHOSPHOROUS 3.3 mg/dL (2.5-4.9); POTASSIUM 3.1 mmol/L (3.5-5.1); SODIUM 143 mmol/L (136-145)
[2018-05-24] MEDS: CLOPIDOGREL BISULFATE 75 MG TABLET (FP) PO SCH (09:23)
[2018-05-24] MEDS: predniSONE 5 MG TABLET (UD) PO SCH (09:23)
[2018-05-24] MEDS: PANTOPRAZOLE 40 MG TABLET (FP) PO SCH (09:23)
[2018-05-24] MEDS: LABETALOL HCL 200 MG TABLET (FP) PO SCH ×2 (09:23→21:56)
[2018-05-24] MEDS: ASPIRIN 81 MG CHEWABLE TABLETS PO SCH (09:23)
[2018-05-24] MEDS: NIFEdipine E.R 60 MG TABLET (UD) PO SCH ×2 (09:24→21:56)
[2018-05-24] MEDS ORDERED: POTASSIUM CHLORIDE TABS 20 MEQ TABLET.ER (FP) PO ONE (11:44)
[2018-05-24 11:49] LABS: ANISOCYTOSIS 0; MACROCYTOSIS 0; PLATELET ESTIMATE NORMAL
--- NOTE | 2018-05-24 11:52 | PN ---
Progress Note, Physician Chief Complaint: Ms Trent still having fevers overnight. Also with decreasing appetite. No cp, sob, n/v. - Current Medication List Current Medications: Active Medications Acetaminophen (Tylenol -) 650 mg PO Q4H PRN PRN Reason: PAIN LEVEL 1-5 Last Admin: 05/24/18 00:16 Dose: 650 mg Al Hydroxide/Mg Hydroxide (Mylanta Oral Suspension -) 30 ml PO Q6H PRN PRN Reason: DYSPEPSIA Aspirin (Asa -) 81 mg PO DAILY [facility] Last Admin: 05/24/18 09:23 Dose: 81 mg Clopidogrel Bisulfate (Plavix -) 75 mg PO DAILY [facility] Last Admin: 05/24/18 09:23 Dose: 75 mg Fentanyl (Sublimaze Injection -) 25 mcg IVPUSH Q5M PRN PRN Reason: PAIN-PACU ORDER X 4 DOSES ONLY Last Admin: 05/19/18 17:30 Dose: 25 mcg Gabapentin (Neurontin -) 600 mg PO TID [facility] Last Admin: 05/24/18 05:51 Dose: 600 mg Aztreonam 2 gm/ Dextrose 100 mls @ 200 mls/hr IVPB Q8H-IV [facility]; Protocol Last Admin: 05/24/18 09:23 Dose: 200 mls/hr Sodium Chloride (Normal Saline -) 1,000 mls @ 75 mls/hr IV ASDIR [facility] Last Admin: 05/24/18 05:52 Dose: 75 mls/hr Labetalol HCl (Normodyne -) 200 mg PO BID [facility] Last Admin: 05/24/18 09:23 Dose: 200 mg Nifedipine (Procardia Xl -) 60 mg PO BID [facility] Last Admin: 05/24/18 09:24 Dose: 60 mg Ondansetron HCl (Zofran Injection) 4 mg IVPUSH Q6H PRN PRN Reason: NAUSEA AND/OR VOMITING Pantoprazole Sodium (Protonix -) 40 mg PO DAILY [facility] Last Admin: 05/24/18 09:23 Dose: 40 mg Potassium Chloride (K-Dur -) 40 meq PO ONCE ONE Stop: 05/24/18 11:45 Prednisone (Deltasone -) 5 mg PO DAILY [facility] Last Admin: 05/24/18 09:23 Dose: 5 mg Tramadol HCl (Ultram -) 50 mg PO Q6H PRN PRN Reason: PAIN LEVEL 6-10 Last Admin: 05/23/18 21:33 Dose: 50 mg - Objective Vital Signs: Vital Signs Temperature 37.1 C 05/24/18 05:51 Pulse Rate 90 05/24/18 05:51 Respiratory Rate 20 05/24/18 05:51 Blood Pressure 128/58 L 05/24/18 05:51 O2 Sat by Pulse Oximetry (%) 95 05/23/18 12:40 Constitutional: Yes: Well Nourished, No Distress, Calm Cardiovascular: Yes: Regular Rate and Rhythm. No: Gallop, Murmur, Rub Respiratory: Yes: Regular, CTA Bilaterally. No: Rales, Rhonchi, Wheezes Gastrointestinal: Yes: Normal Bowel Sounds, Soft. No: Distention, Tenderness Extremities: Yes: WNL Edema: No Labs: CBC, BMP 05/24/18 06:00 05/24/18 06:00 INR, PTT INR 1.11 (0.83-1.09) H 05/19/18 07:17 Problem List - Problems (1) Left foot infection Code(s): L08.9 - LOCAL INFECTION OF THE SKIN AND SUBCUTANEOUS TISSUE, UNSP (2) Atherosclerosis of [place] arteries of left leg with ulceration of other part of foot Code(s): I70.245 - ATHSCL [place] ARTERIES OF LEFT LEG W ULCERATION OTH PRT FOOT (3) Acute on chronic renal failure Code(s): N17.9 - ACUTE KIDNEY FAILURE, UNSPECIFIED; N18.9 - CHRONIC KIDNEY DISEASE, UNSPECIFIED Qualifiers: Acute renal failure type: unspecified Chronic kidney disease stage: unspecified stage Qualified Code(s): N17.9 - Acute kidney failure, unspecified ; N18.9 - Chronic kidney disease, unspecified; N18.9 - Chronic kidney disease, unspecified (4) HTN (hypertension) Code(s): I10 - ESSENTIAL (PRIMARY) HYPERTENSION (5) Hx of AKA (above knee amputation) Code(s): Z89.619 - ACQUIRED ABSENCE OF UNSPECIFIED LEG ABOVE KNEE Qualifiers: Laterality: right Qualified Code(s): Z89.611 - Acquired absence of right leg above knee (6) Lupus (systemic lupus erythematosus) Code(s): M32.9 - SYSTEMIC LUPUS ERYTHEMATOSUS, UNSPECIFIED Assessment/Plan (1) Left foot infection Assessment/Plan: -case d/w ID -concern for abscess -will obtain CT scan LLE -continue aztreonam -add vancomycin Code(s): L08.9 - LOCAL INFECTION OF THE SKIN AND SUBCUTANEOUS TISSUE, UNSP (2) Atherosclerosis of [place] arteries of left leg with ulceration of other part of foot Assessment/Plan: -underwent CT angiogram with stenting -good blood flow -continue aspirin and plavix Code(s): I70.245 - ATHSCL [place] ARTERIES OF LEFT LEG W ULCERATION OTH PRT FOOT (3) Acute on chronic renal failure Assessment/Plan: -resolved Code(s): N17.9 - ACUTE KIDNEY FAILURE, UNSPECIFIED; N18.9 - CHRONIC KIDNEY DISEASE, UNSPECIFIED Qualifiers: Acute renal failure type: unspecified Chronic kidney disease stage: unspecified stage Qualified Code(s): N17.9 - Acute kidney failure, unspecified ; N18.9 - Chronic kidney disease, unspecified; N18.9 - Chronic kidney disease, unspecified (4) HTN (hypertension) Assessment/Plan: -continue labetalol and nifedipine Code(s): I10 - ESSENTIAL (PRIMARY) HYPERTENSION (5) Hx of AKA (above knee amputation) Code(s): Z89.619 - ACQUIRED ABSENCE OF UNSPECIFIED LEG ABOVE KNEE Qualifiers: Laterality: right Qualified Code(s): Z89.611 - Acquired absence of right leg above knee (6) Lupus (systemic lupus erythematosus) Assessment/Plan: -continue low dose prednisone Code(s): M32.9 - SYSTEMIC LUPUS ERYTHEMATOSUS, UNSPECIFIED (7) Hypokalemia -replace today
--- NOTE | 2018-05-24 11:57 | PN ---
Progress Note, Physician History of Present Illness: patient has started spiking fever also her tenderness on the left foot has increased wbc has increased as well as esr and crp sys she is under a lot of stress - Current Medication List Current Medications: Active Medications Acetaminophen (Tylenol -) 650 mg PO Q4H PRN PRN Reason: PAIN LEVEL 1-5 Last Admin: 05/24/18 00:16 Dose: 650 mg Al Hydroxide/Mg Hydroxide (Mylanta Oral Suspension -) 30 ml PO Q6H PRN PRN Reason: DYSPEPSIA Aspirin (Asa -) 81 mg PO DAILY [facility] Last Admin: 05/24/18 09:23 Dose: 81 mg Clopidogrel Bisulfate (Plavix -) 75 mg PO DAILY [facility] Last Admin: 05/24/18 09:23 Dose: 75 mg Fentanyl (Sublimaze Injection -) 25 mcg IVPUSH Q5M PRN PRN Reason: PAIN-PACU ORDER X 4 DOSES ONLY Last Admin: 05/19/18 17:30 Dose: 25 mcg Gabapentin (Neurontin -) 600 mg PO TID [facility] Last Admin: 05/24/18 05:51 Dose: 600 mg Aztreonam 2 gm/ Dextrose 100 mls @ 200 mls/hr IVPB Q8H-IV [facility]; Protocol Last Admin: 05/24/18 09:23 Dose: 200 mls/hr Sodium Chloride (Normal Saline -) 1,000 mls @ 75 mls/hr IV ASDIR [facility] Last Admin: 05/24/18 05:52 Dose: 75 mls/hr Vancomycin HCl 1,250 mg/ (Dextrose) 250 mls @ 250 mls/2 hr IVPB Q24H [facility]; Protocol Labetalol HCl (Normodyne -) 200 mg PO BID [facility] Last Admin: 05/24/18 09:23 Dose: 200 mg Nifedipine (Procardia Xl -) 60 mg PO BID [facility] Last Admin: 05/24/18 09:24 Dose: 60 mg Ondansetron HCl (Zofran Injection) 4 mg IVPUSH Q6H PRN PRN Reason: NAUSEA AND/OR VOMITING Pantoprazole Sodium (Protonix -) 40 mg PO DAILY [facility] Last Admin: 05/24/18 09:23 Dose: 40 mg Prednisone (Deltasone -) 5 mg PO DAILY [facility] Last Admin: 05/24/18 09:23 Dose: 5 mg Tramadol HCl (Ultram -) 50 mg PO Q6H PRN PRN Reason: PAIN LEVEL 6-10 Last Admin: 05/23/18 21:33 Dose: 50 mg - Objective Vital Signs: Vital Signs Temperature 98.8 F 05/24/18 05:51 Pulse Rate 90 05/24/18 05:51 Respiratory Rate 20 05/24/18 05:51 Blood Pressure 128/58 L 05/24/18 05:51 O2 Sat by Pulse Oximetry (%) 95 05/23/18 12:40 Constitutional: Yes: Calm, Moderate Distress Cardiovascular: Yes: S1, S2 Respiratory: Yes: Regular, CTA Bilaterally Gastrointestinal: Yes: Normal Bowel Sounds, Soft Musculoskeletal: Yes: WNL Extremities: Yes: Other (tenderness of the left foot foot) Wound/Incision: Yes: Clean/Dry Neurological: Yes: Alert, Oriented Psychiatric: Yes: Alert, Oriented Labs: CBC, BMP 05/24/18 06:00 05/24/18 06:00 INR, PTT INR 1.11 (0.83-1.09) H 05/19/18 07:17 Assessment/Plan Problem List - Problems (1) Left foot infection Code(s): L08.9 - LOCAL INFECTION OF THE SKIN AND SUBCUTANEOUS TISSUE, UNSP (2) Amputated right leg Code(s): Z89.611 - ACQUIRED ABSENCE OF RIGHT LEG ABOVE KNEE (3) Anemia Code(s): D64.9 - ANEMIA, UNSPECIFIED Qualifiers: Anemia type: unspecified type Qualified Code(s): D64.9 - Anemia, unspecified (4) HTN (hypertension) Code(s): I10 - ESSENTIAL (PRIMARY) HYPERTENSION (5) Hx of AKA (above knee amputation) Code(s): Z89.619 - ACQUIRED ABSENCE OF UNSPECIFIED LEG ABOVE KNEE (6) Hydronephrosis Code(s): N13.30 - UNSPECIFIED HYDRONEPHROSIS (7) Lupus (systemic lupus erythematosus) Code(s): M32.9 - SYSTEMIC LUPUS ERYTHEMATOSUS, UNSPECIFIED (8) Ureteral obstruction, right Code(s): N13.5 - CROSSING VESSEL AND STRICTURE OF URETER W/O HYDRONEPHROSIS plan added vanco continue aztreonam will order a stat ct scan of the foot once we have that result will have the final plan
[2018-05-24] MEDS: traMADol HCL 50 MG TABLET PO PRN ×2 (12:54→21:55)
[2018-05-24] MEDS: VANCOMYCIN 1,250 MG in DEXTROSE 5%-WATER - 250 ML IVPB SCH (14:32)
[2018-05-24] MEDS: ALPRAZolam 0.25 MG TABLET PO PRN (21:56)
[2018-05-25] MEDS: PHENYLEPH/MINERAL OIL/PETROLAT 28 GM OINTMENT RC SCH ×3 (00:46→21:36)
[2018-05-25] MEDS: AZTREONAM 2 GM in DEXTROSE 5%-WATER 100 ML IVPB SCH ×3 (02:00→17:59)
[2018-05-25] MEDS: SODIUM CHLORIDE 1,000 ML IV SCH ×2 (03:09→21:38)
[2018-05-25] MEDS: GABAPENTIN 300 MG CAPSULE (FP) PO SCH ×3 (05:33→21:36)
[2018-05-25 07:12] LABS: BASO % 0.5 % (0-2.0); EOS % 3.3 % (0-4.5); LYMPH % 13.9 % (8-40); MCHC 33.3 g/dl (32.0-36.0); MEAN PLT VOLUME 7.9 fl (7.5-11.1); MONO % 8.4 % (3.8-10.2); NEUT % 73.9 % (42.8-82.8); PLATELET COUNT 392 K/MM3 (134-434); RBC 2.96 M/mm3 (3.60-5.2); RDW 17.2 % (11.6-15.6); WHITE BLOOD COUNT 15.3 K/mm3 (4.0-10.0)
[2018-05-25 07:55] LABS: ANION GAP 8 MMOL/L (8-16); BLOOD UREA NITROGEN 16 mg/dL (7-18); CHLORIDE 114 mmol/L (98-107); CO2 22 mmol/L (21-32); CREATININE 0.9 mg/dL (0.55-1.3); GLUCOSE,RANDOM 86 mg/dL (74-106); PHOSPHOROUS 2.3 mg/dL (2.5-4.9); POTASSIUM 3.2 mmol/L (3.5-5.1); SODIUM 144 mmol/L (136-145)
[2018-05-25] MEDS: predniSONE 5 MG TABLET (UD) PO SCH (09:28)
[2018-05-25] MEDS: CLOPIDOGREL BISULFATE 75 MG TABLET (FP) PO SCH (09:28)
[2018-05-25] MEDS: traMADol HCL 50 MG TABLET PO PRN ×2 (09:28→15:57)
[2018-05-25] MEDS: LABETALOL HCL 200 MG TABLET (FP) PO SCH ×2 (09:28→21:36)
[2018-05-25] MEDS: PANTOPRAZOLE 40 MG TABLET (FP) PO SCH (09:28)
[2018-05-25] MEDS: ASPIRIN 81 MG CHEWABLE TABLETS PO SCH (09:28)
[2018-05-25] MEDS: NIFEdipine E.R 60 MG TABLET (UD) PO SCH ×2 (09:32→21:37)
[2018-05-25] MEDS ORDERED: PT OWN MED DRAWER 7, Y5N ONE ×4 (09:32→21:32)
--- NOTE | 2018-05-25 11:55 | PN ---
Progress Note (short form) - Note Progress Note: Patient seen for redness and pain left foot. Patient states that pain has improved. Tmax 98.8 +improved tender, +improved erythema, -drainage, +read report of ct and appreciated, wbc=15.3 r/o abscess cellulitis Ultrasound awaiting ordered. CT scan reviewed. Will follow. Continue IVABX.
[2018-05-25] MEDS: POTASSIUM CHLORIDE ORAL LIQUID 20 MEQ/15 ML PO SCH ×2 (12:26→21:36)
[2018-05-25] MEDS: VANCOMYCIN 1,250 MG in DEXTROSE 5%-WATER - 250 ML IVPB SCH (12:26)
--- NOTE | 2018-05-25 12:44 | PN ---
Progress Note, Physician Chief Complaint: Pt sitting in chair in no acute distress. reports feeling well. Denies any chest pain, sob, n/v/d - Current Medication List Current Medications: Active Medications Acetaminophen (Tylenol -) 650 mg PO Q4H PRN PRN Reason: PAIN LEVEL 1-5 Last Admin: 05/24/18 00:16 Dose: 650 mg Al Hydroxide/Mg Hydroxide (Mylanta Oral Suspension -) 30 ml PO Q6H PRN PRN Reason: DYSPEPSIA Alprazolam (Xanax -) 0.25 mg PO Q8H PRN PRN Reason: ANXIETY Last Admin: 05/24/18 21:56 Dose: 0.25 mg Aspirin (Asa -) 81 mg PO DAILY [facility] Last Admin: 05/25/18 09:28 Dose: 81 mg Clopidogrel Bisulfate (Plavix -) 75 mg PO DAILY [facility] Last Admin: 05/25/18 09:28 Dose: 75 mg Fentanyl (Sublimaze Injection -) 25 mcg IVPUSH Q5M PRN PRN Reason: PAIN-PACU ORDER X 4 DOSES ONLY Last Admin: 05/19/18 17:30 Dose: 25 mcg Gabapentin (Neurontin -) 600 mg PO TID [facility] Last Admin: 05/25/18 05:33 Dose: 600 mg Aztreonam 2 gm/ Dextrose 100 mls @ 200 mls/hr IVPB Q8H-IV [facility]; Protocol Last Admin: 05/25/18 09:32 Dose: 200 mls/hr Sodium Chloride (Normal Saline -) 1,000 mls @ 75 mls/hr IV ASDIR [facility] Last Admin: 05/25/18 03:09 Dose: 75 mls/hr Vancomycin HCl 1,250 mg/ (Dextrose) 250 mls @ 250 mls/2 hr IVPB Q24H [facility]; Protocol Last Admin: 05/25/18 12:26 Dose: 250 mls/2 hr Labetalol HCl (Normodyne -) 200 mg PO BID [facility] Last Admin: 05/25/18 09:28 Dose: 200 mg Nifedipine (Procardia Xl -) 60 mg PO BID [facility] Last Admin: 05/25/18 09:32 Dose: 60 mg Ondansetron HCl (Zofran Injection) 4 mg IVPUSH Q6H PRN PRN Reason: NAUSEA AND/OR VOMITING Pantoprazole Sodium (Protonix -) 40 mg PO DAILY [facility] Last Admin: 05/25/18 09:28 Dose: 40 mg Potassium Chloride (Potassium Chloride Oral Liquid) 40 meq PO BID [facility] Last Admin: 05/25/18 12:26 Dose: 40 meq Potassium Phos/Sodium Phos (Phos-Nak Packet -) 1 packet PO TID [facility] Prednisone (Deltasone -) 5 mg PO DAILY [facility] Last Admin: 05/25/18 09:28 Dose: 5 mg Tramadol HCl (Ultram -) 50 mg PO Q6H PRN PRN Reason: PAIN LEVEL 6-10 Last Admin: 05/25/18 09:28 Dose: 50 mg - Objective Vital Signs: Vital Signs Temperature 98.0 F 05/25/18 09:00 Pulse Rate 90 05/25/18 09:00 Respiratory Rate 20 05/25/18 09:00 Blood Pressure 131/54 L 05/25/18 09:00 O2 Sat by Pulse Oximetry (%) 94 L 05/24/18 22:00 Constitutional: Yes: No Distress, Calm Respiratory: Yes: WNL, Regular, CTA Bilaterally. No: Accessory Muscle Use, SOB , Tachypnea, Wheezes Gastrointestinal: Yes: WNL, Normal Bowel Sounds, Soft. No: Distention, Tenderness Genitourinary: Yes: WNL Extremities: Yes: Amputation Edema: Yes Edema: LLE: Trace, RLE: Trace Integumentary: Yes: Erythema (left foot) Wound/Incision: Yes: Open to air, Reddened Neurological: Yes: Alert, Oriented Labs: CBC, BMP 05/25/18 06:40 05/25/18 06:40 INR, PTT INR 1.11 (0.83-1.09) H 05/19/18 07:17 Assessment/Plan (1) Left foot infection Assessment/Plan: CT scan LLE- fluid in soft tissues wbc count trending down continue aztreonam, vancomycin trend esr/crp case discussed w/ ID await podiatry recommends Code(s): L08.9 - LOCAL INFECTION OF THE SKIN AND SUBCUTANEOUS TISSUE, UNSP (2) Atherosclerosis of [place] arteries of left leg with ulceration of other part of foot Assessment/Plan: s/p CT angiogram with stenting good blood flow continue aspirin and plavix Code(s): I70.245 - ATHSCL [place] ARTERIES OF LEFT LEG W ULCERATION OTH PRT FOOT (3) Acute on chronic renal failure Assessment/Plan: resolved Code(s): N17.9 - ACUTE KIDNEY FAILURE, UNSPECIFIED; N18.9 - CHRONIC KIDNEY DISEASE, UNSPECIFIED Qualifiers: Acute renal failure type: unspecified Chronic kidney disease stage: unspecified stage Qualified Code(s): N17.9 - Acute kidney failure, unspecified ; N18.9 - Chronic kidney disease, unspecified; N18.9 - Chronic kidney disease, unspecified (4) HTN (hypertension) Assessment/Plan: continue labetalol and nifedipine Code(s): I10 - ESSENTIAL (PRIMARY) HYPERTENSION (5) Hx of AKA (above knee amputation) Assessment/Plan: chronic Code(s): Z89.619 - ACQUIRED ABSENCE OF UNSPECIFIED LEG ABOVE KNEE Qualifiers: Laterality: right Qualified Code(s): Z89.611 - Acquired absence of right leg above knee (6) Lupus (systemic lupus erythematosus) Assessment/Plan: continue low dose prednisone Code(s): M32.9 - SYSTEMIC LUPUS ERYTHEMATOSUS, UNSPECIFIED (7) Hypokalemia Assessment/Plan: kcl scheduled (8) Hypophosphatemia Assessment/Plan: kphos ordered monitor bmp Code(s): E83.39 - OTHER DISORDERS OF PHOSPHORUS METABOLISM
--- NOTE | 2018-05-25 13:55 | PN ---
Progress Note, Physician History of Present Illness: FEELS BETTER wbc trending down - Current Medication List Current Medications: Active Medications Acetaminophen (Tylenol -) 650 mg PO Q4H PRN PRN Reason: PAIN LEVEL 1-5 Last Admin: 05/24/18 00:16 Dose: 650 mg Al Hydroxide/Mg Hydroxide (Mylanta Oral Suspension -) 30 ml PO Q6H PRN PRN Reason: DYSPEPSIA Alprazolam (Xanax -) 0.25 mg PO Q8H PRN PRN Reason: ANXIETY Last Admin: 05/24/18 21:56 Dose: 0.25 mg Aspirin (Asa -) 81 mg PO DAILY [facility] Last Admin: 05/25/18 09:28 Dose: 81 mg Clopidogrel Bisulfate (Plavix -) 75 mg PO DAILY [facility] Last Admin: 05/25/18 09:28 Dose: 75 mg Fentanyl (Sublimaze Injection -) 25 mcg IVPUSH Q5M PRN PRN Reason: PAIN-PACU ORDER X 4 DOSES ONLY Last Admin: 05/19/18 17:30 Dose: 25 mcg Gabapentin (Neurontin -) 600 mg PO TID [facility] Last Admin: 05/25/18 05:33 Dose: 600 mg Aztreonam 2 gm/ Dextrose 100 mls @ 200 mls/hr IVPB Q8H-IV [facility]; Protocol Last Admin: 05/25/18 09:32 Dose: 200 mls/hr Sodium Chloride (Normal Saline -) 1,000 mls @ 75 mls/hr IV ASDIR [facility] Last Admin: 05/25/18 03:09 Dose: 75 mls/hr Vancomycin HCl 1,250 mg/ (Dextrose) 250 mls @ 250 mls/2 hr IVPB Q24H [facility]; Protocol Last Admin: 05/25/18 12:26 Dose: 250 mls/2 hr Labetalol HCl (Normodyne -) 200 mg PO BID [facility] Last Admin: 05/25/18 09:28 Dose: 200 mg Nifedipine (Procardia Xl -) 60 mg PO BID [facility] Last Admin: 05/25/18 09:32 Dose: 60 mg Ondansetron HCl (Zofran Injection) 4 mg IVPUSH Q6H PRN PRN Reason: NAUSEA AND/OR VOMITING Pantoprazole Sodium (Protonix -) 40 mg PO DAILY [facility] Last Admin: 05/25/18 09:28 Dose: 40 mg Potassium Chloride (Potassium Chloride Oral Liquid) 40 meq PO BID [facility] Last Admin: 05/25/18 12:26 Dose: 40 meq Potassium Phos/Sodium Phos (Phos-Nak Packet -) 1 packet PO TID [facility] Prednisone (Deltasone -) 5 mg PO DAILY [facility] Last Admin: 05/25/18 09:28 Dose: 5 mg Tramadol HCl (Ultram -) 50 mg PO Q6H PRN PRN Reason: PAIN LEVEL 6-10 Last Admin: 05/25/18 09:28 Dose: 50 mg - Objective Vital Signs: Vital Signs Temperature 98.0 F 05/25/18 09:00 Pulse Rate 90 05/25/18 09:00 Respiratory Rate 20 05/25/18 09:00 Blood Pressure 131/54 L 05/25/18 09:00 O2 Sat by Pulse Oximetry (%) 94 L 05/24/18 22:00 Constitutional: Yes: No Distress, Calm Cardiovascular: Yes: Regular Rate and Rhythm Respiratory: Yes: Regular, CTA Bilaterally Gastrointestinal: Yes: Normal Bowel Sounds, Soft Musculoskeletal: Yes: WNL Extremities: Yes: WNL Neurological: Yes: Alert, Oriented Psychiatric: Yes: Alert, Oriented Labs: CBC, BMP 05/25/18 06:40 05/25/18 06:40 INR, PTT INR 1.11 (0.83-1.09) H 05/19/18 07:17 Assessment/Plan Problem List - Problems (1) Left foot infection Code(s): L08.9 - LOCAL INFECTION OF THE SKIN AND SUBCUTANEOUS TISSUE, UNSP (2) Amputated right leg Code(s): Z89.611 - ACQUIRED ABSENCE OF RIGHT LEG ABOVE KNEE (3) Anemia Code(s): D64.9 - ANEMIA, UNSPECIFIED Qualifiers: Anemia type: unspecified type Qualified Code(s): D64.9 - Anemia, unspecified (4) HTN (hypertension) Code(s): I10 - ESSENTIAL (PRIMARY) HYPERTENSION (5) Hx of AKA (above knee amputation) Code(s): Z89.619 - ACQUIRED ABSENCE OF UNSPECIFIED LEG ABOVE KNEE (6) Hydronephrosis Code(s): N13.30 - UNSPECIFIED HYDRONEPHROSIS (7) Lupus (systemic lupus erythematosus) Code(s): M32.9 - SYSTEMIC LUPUS ERYTHEMATOSUS, UNSPECIFIED (8) Ureteral obstruction, right Code(s): N13.5 - CROSSING VESSEL AND STRICTURE OF URETER W/O HYDRONEPHROSIS plan continue current abx await for podiatry decision about the fluid monitor wbc rest as per the team
[2018-05-25] MEDS: NAPH,MB-DB/K PH,MBDB POWDER PACKET PO SCH ×2 (14:09→21:36)
[2018-05-26] MEDS ORDERED: PT OWN MED DRAWER 7, Y5N ONE ×3 (01:45→21:33)
[2018-05-26] MEDS: AZTREONAM 2 GM in DEXTROSE 5%-WATER 100 ML IVPB SCH ×2 (01:58→09:22)
[2018-05-26] MEDS: traMADol HCL 50 MG TABLET PO PRN ×2 (02:01→09:21)
[2018-05-26] MEDS: PHENYLEPH/MINERAL OIL/PETROLAT 28 GM OINTMENT RC SCH ×3 (06:02→21:41)
[2018-05-26] MEDS: GABAPENTIN 300 MG CAPSULE (FP) PO SCH ×3 (06:04→21:41)
[2018-05-26] MEDS: NAPH,MB-DB/K PH,MBDB POWDER PACKET PO SCH ×3 (06:04→21:41)
--- NOTE | 2018-05-26 07:44 | PN ---
Physical Exam: SUBJECTIVE: Patient seen and examined by me at bedside. No acute events overnight Afebrile for 24 hours Reports she was able to walk with physical therapy however she was limited due to full body chills. Otherwise, denies any fever, nausea, vomiting, abdominal pain, chest pain, palpitations, shortness of breath, headaches, loss of consciousness. OBJECTIVE: Vital Signs Period Temp Pulse Resp BP Sys/[place] Pulse Ox Last 24 Hr -99.1 F-98.8 F 80-90 20-20 120-155/46-80 95 GENERAL: The patient is awake, alert, and fully oriented, in no acute distress. EYES: Sclera anicteric, conjunctiva clear. No ptosis. ENT: Oropharynx clear without exudates, moist mucous membranes. LUNGS: Breath sounds equal, clear to auscultation bilaterally, no wheezes, no crackles, no accessory muscle use. HEART: Regular rate and rhythm, Normal S1 and S2 without murmur, rub or gallop. ABDOMEN: Soft, nontender, nondistended, normoactive bowel sounds EXTREMITIES: (+) erythema, warmth and redness of left grewal extending from above the ankle to below the knee and lateral aspect of the leg. (+) PT pulses bilaterally Laboratory Results 05/26/18 06:30 Active Medications Generic Name Dose Route Start Last Admin Trade Name Freq PRN Reason Stop Dose Admin Acetaminophen 650 mg 05/19/18 17:21 05/24/18 00:16 Tylenol - PO 650 mg Q4H PRN Administration PAIN LEVEL 1-5 Al Hydroxide/Mg Hydroxide 30 ml 05/19/18 17:21 Mylanta Oral Suspension - PO Q6H PRN DYSPEPSIA Alprazolam 0.25 mg 05/24/18 13:16 05/24/18 21:56 Xanax - PO 0.25 mg Q8H PRN Administration ANXIETY Aspirin 81 mg 05/19/18 17:21 05/25/18 09:28 Asa - PO 81 mg DAILY [facility] Administration Clopidogrel Bisulfate 75 mg 05/19/18 17:21 05/25/18 09:28 Plavix - PO 75 mg DAILY [facility] Administration Fentanyl 25 mcg 05/19/18 17:29 05/19/18 17:30 Sublimaze Injection - IVPUSH 25 mcg Q5M PRN Administration PAIN-PACU ORDER X 4 DOSES ONLY Gabapentin 600 mg 05/19/18 22:00 05/26/18 06:04 Neurontin - PO 600 mg TID [facility] Administration Aztreonam 2 gm/ Dextrose 100 mls @ 200 mls/hr 05/19/18 18:00 05/26/18 01:58 IVPB 200 mls/hr Q8H-IV [facility] Administration Protocol Sodium Chloride 1,000 mls @ 75 mls/hr 05/19/18 17:21 05/25/18 21:38 Normal Saline - IV 75 mls/hr ASDIR [facility] Administration Vancomycin HCl 1,250 mg/ 250 mls @ 250 mls/2 hr 05/24/18 12:00 05/25/18 12:26 Dextrose IVPB 250 mls/2 hr Q24H [facility] Administration Protocol Labetalol HCl 200 mg 05/19/18 22:00 05/25/18 21:36 Normodyne - PO 200 mg BID [facility] Administration Nifedipine 60 mg 05/19/18 22:00 05/25/18 21:37 Procardia Xl - PO 60 mg BID [facility] Administration Ondansetron HCl 4 mg 05/19/18 17:29 Zofran Injection IVPUSH Q6H PRN NAUSEA AND/OR VOMITING Pantoprazole Sodium 40 mg 05/20/18 10:00 05/25/18 09:28 Protonix - PO 40 mg DAILY [facility] Administration Potassium Chloride 40 meq 05/25/18 12:00 05/25/18 21:36 Potassium Chloride Oral Liquid PO 40 meq BID [facility] Administration Potassium Phos/Sodium Phos 1 packet 05/25/18 14:00 05/26/18 06:04 Phos-Nak Packet - PO 1 packet TID [facility] Administration Prednisone 5 mg 05/20/18 10:00 05/25/18 09:28 Deltasone - PO 5 mg DAILY [facility] Administration Tramadol HCl 50 mg 05/19/18 17:21 05/26/18 02:01 Ultram - PO 50 mg Q6H PRN Administration PAIN LEVEL 6-10 ASSESSMENT/PLAN: Patient is a 72 year old female with a PMHx of Lupus since 1978 (On prednisone and Plaquenil), PAD s/p right AKA with iliac stent placements, CKD, Anemia of chronic disease, HTN, HLD, who presented for left foot pain and was found to have cellulitis. Left Foot Cellulitis -Possibly Osteomyelitis -S/P Incision right foot wound by Dr. Gomez (05/20/18) with no pus in metatarsal wound. -Blood cultures negative -Continue Aztreonam 2gm Q8H (day #9). Continue Vancomycin 1250mg IVPB (Day #3) -Unable to have MRI of the foot done due to patient having permanent eyeliner which contains lead/metal -Triple phase Bone scan inconclusive -CT revealed fluid around the soft tissue of the foot -Will need ID to determine duration of Abx use and further recommendations by Podiatry Lupus -Currently on Prednisone and Plaquenil at home -Continue Prednisone 5mg daily -Discontinue Plaquenil for now PAD s/p Right AKA and PCI -S/P Revascularization left tibial artery with atherectomy and agioplasty and Incision right foot wound by Dr. Gomez (05/20/18). Found to have 80% stenosis distal TP trunk at bifurcation and Diffuse 70% narrowing of ARABELLA. Run off done -Pain control with Tylenol, Tramadol and Gabapentin CKD -Possibly lupus nephritis -Kidney function stable -Continue IV hydration with NS @75mls/hr -Continue to monitor BMP HTN -Continue Nifedipine 60mg BID -Continue Labetolol 200mg BID -Continue to monitor BP F/E/N -IV NS @75mls/hr -Electrolytes wnl -Sodium controlled diet Prophylaxis -Heparin 5000 units SQ TID for DVT -Famotidine 40mg daily for GI Disposition -Full code Charlette Stewart [id number] Visit type - Emergency Visit Emergency Visit: Yes ED Registration Date: 05/17/18 Care time: The patient presented to the Emergency Department on the above date and was hospitalized for further evaluation of their emergent condition. - New Patient This patient is new to me today: No - Critical Care Critical Care patient: No
[2018-05-26 07:50] LABS: ALK PHOS 64 U/L (45-117); ANION GAP 7 MMOL/L (8-16); BILIRUBIN,TOTAL 0.3 mg/dL (0.2-1); BLOOD UREA NITROGEN 14 mg/dL (7-18); CALCIUM 8.2 mg/dL (8.5-10.1); CHLORIDE 112 mmol/L (98-107); CO2 23 mmol/L (21-32); CREATININE 0.8 mg/dL (0.55-1.3); GLUCOSE,RANDOM 80 mg/dL (74-106); PHOSPHOROUS 3.4 mg/dL (2.5-4.9); SGOT/AST 13 U/L (15-37); SGPT/ALT 19 U/L (13-61); SODIUM 141 mmol/L (136-145); TOT PROT 6.2 g/dl (6.4-8.2)
[2018-05-26 07:53] LABS: BASO % 0.7 % (0-2.0); EOS % 4.3 % (0-4.5); HEMATOCRIT 25.1 % (32.4-45.2); HEMOGLOBIN 8.2 GM/dL (10.7-15.3); LYMPH % 16.6 % (8-40); MCH 26.6 pg (25.7-33.7); MCHC 32.7 g/dl (32.0-36.0); MEAN CELL VOLUME 81.4 fl (80-96); MEAN PLT VOLUME 8.2 fl (7.5-11.1); MONO % 9.7 % (3.8-10.2); NEUT % 68.7 % (42.8-82.8); PLATELET COUNT 436 K/MM3 (134-434); RBC 3.09 M/mm3 (3.60-5.2); RDW 17.8 % (11.6-15.6); WHITE BLOOD COUNT 13.3 K/mm3 (4.0-10.0)
[2018-05-26] MEDS: predniSONE 5 MG TABLET (UD) PO SCH (09:21)
[2018-05-26] MEDS: ASPIRIN 81 MG CHEWABLE TABLETS PO SCH (09:21)
[2018-05-26] MEDS: POTASSIUM CHLORIDE ORAL LIQUID 20 MEQ/15 ML PO SCH ×2 (09:22→21:41)
[2018-05-26] MEDS: CLOPIDOGREL BISULFATE 75 MG TABLET (FP) PO SCH (09:22)
[2018-05-26] MEDS: LABETALOL HCL 200 MG TABLET (FP) PO SCH ×2 (09:22→21:41)
[2018-05-26] MEDS: NIFEdipine E.R 60 MG TABLET (UD) PO SCH ×2 (09:22→21:41)
[2018-05-26] MEDS: PANTOPRAZOLE 40 MG TABLET (FP) PO SCH (09:22)
[2018-05-26 10:54] LABS: ERYTHROCYTE SEDIMENTATION RATE 107 mm/hr (0-30)
[2018-05-26] MEDS: ALPRAZolam 0.25 MG TABLET PO PRN (11:32)
[2018-05-26] MEDS: VANCOMYCIN 1,250 MG in DEXTROSE 5%-WATER - 250 ML IVPB SCH (12:14)
--- NOTE | 2018-05-26 13:14 | PN ---
Progress Note, Physician History of Present Illness: patient stable no new issues - Current Medication List Current Medications: Active Medications Acetaminophen (Tylenol -) 650 mg PO Q4H PRN PRN Reason: PAIN LEVEL 1-5 Last Admin: 05/24/18 00:16 Dose: 650 mg Al Hydroxide/Mg Hydroxide (Mylanta Oral Suspension -) 30 ml PO Q6H PRN PRN Reason: DYSPEPSIA Alprazolam (Xanax -) 0.25 mg PO Q8H PRN PRN Reason: ANXIETY Last Admin: 05/26/18 11:32 Dose: 0.25 mg Aspirin (Asa -) 81 mg PO DAILY [facility] Last Admin: 05/26/18 09:21 Dose: 81 mg Clopidogrel Bisulfate (Plavix -) 75 mg PO DAILY [facility] Last Admin: 05/26/18 09:22 Dose: 75 mg Fentanyl (Sublimaze Injection -) 25 mcg IVPUSH Q5M PRN PRN Reason: PAIN-PACU ORDER X 4 DOSES ONLY Last Admin: 05/19/18 17:30 Dose: 25 mcg Gabapentin (Neurontin -) 600 mg PO TID [facility] Last Admin: 05/26/18 06:04 Dose: 600 mg Sodium Chloride (Normal Saline -) 1,000 mls @ 75 mls/hr IV ASDIR [facility] Last Admin: 05/25/18 21:38 Dose: 75 mls/hr Vancomycin HCl 1,250 mg/ (Dextrose) 250 mls @ 250 mls/2 hr IVPB Q24H [facility]; Protocol Last Admin: 05/26/18 12:14 Dose: 250 mls/2 hr Labetalol HCl (Normodyne -) 200 mg PO BID [facility] Last Admin: 05/26/18 09:22 Dose: 200 mg Nifedipine (Procardia Xl -) 60 mg PO BID [facility] Last Admin: 05/26/18 09:22 Dose: 60 mg Ondansetron HCl (Zofran Injection) 4 mg IVPUSH Q6H PRN PRN Reason: NAUSEA AND/OR VOMITING Pantoprazole Sodium (Protonix -) 40 mg PO DAILY [facility] Last Admin: 05/26/18 09:22 Dose: 40 mg Potassium Chloride (Potassium Chloride Oral Liquid) 40 meq PO BID [facility] Last Admin: 05/26/18 09:22 Dose: 40 meq Potassium Phos/Sodium Phos (Phos-Nak Packet -) 1 packet PO TID [facility] Last Admin: 05/26/18 06:04 Dose: 1 packet Prednisone (Deltasone -) 5 mg PO DAILY [facility] Last Admin: 05/26/18 09:21 Dose: 5 mg - Objective Vital Signs: Vital Signs Temperature 98.7 F 05/26/18 09:00 Pulse Rate 88 05/26/18 09:00 Respiratory Rate 20 05/26/18 09:00 Blood Pressure 142/55 L 05/26/18 09:00 O2 Sat by Pulse Oximetry (%) 95 05/25/18 21:00 Constitutional: Yes: No Distress, Calm Cardiovascular: Yes: S1, S2 Respiratory: Yes: Regular, CTA Bilaterally Gastrointestinal: Yes: Normal Bowel Sounds, Soft Musculoskeletal: Yes: WNL Extremities: Yes: Other Neurological: Yes: Alert, Oriented Psychiatric: Yes: Alert, Oriented Labs: CBC, BMP 05/26/18 06:30 05/26/18 06:30 INR, PTT INR 1.11 (0.83-1.09) H 05/19/18 07:17 Assessment/Plan Problem List - Problems (1) Left foot infection Code(s): L08.9 - LOCAL INFECTION OF THE SKIN AND SUBCUTANEOUS TISSUE, UNSP (2) Amputated right leg Code(s): Z89.611 - ACQUIRED ABSENCE OF RIGHT LEG ABOVE KNEE (3) Anemia Code(s): D64.9 - ANEMIA, UNSPECIFIED Qualifiers: Anemia type: unspecified type Qualified Code(s): D64.9 - Anemia, unspecified (4) HTN (hypertension) Code(s): I10 - ESSENTIAL (PRIMARY) HYPERTENSION (5) Hx of AKA (above knee amputation) Code(s): Z89.619 - ACQUIRED ABSENCE OF UNSPECIFIED LEG ABOVE KNEE (6) Hydronephrosis Code(s): N13.30 - UNSPECIFIED HYDRONEPHROSIS (7) Lupus (systemic lupus erythematosus) Code(s): M32.9 - SYSTEMIC LUPUS ERYTHEMATOSUS, UNSPECIFIED (8) Ureteral obstruction, right Code(s): N13.5 - CROSSING VESSEL AND STRICTURE OF URETER W/O HYDRONEPHROSIS plan continue current abx will stop aztreonam will see wbc tomorrow rest as per the team await for podiatry input
[2018-05-26] MEDS ORDERED: traMADol HCL 50 MG TABLET PO PRN (13:24)
--- NOTE | 2018-05-26 13:48 | PN ---
Progress Note (short form) - Note Progress Note: Patient seen for redness and pain left foot. Today having pain and drainage from bottom foot. Tmax 98.8 +improved tender, +improved erythema, +drainage, wbc=13.3 abscess cellulitis On schedule for [address] scan reviewed. Will follow. Continue IVABX. Discussed with ID and vascular. Vascular has cleared for I&D. will follow. Betadine dressing to plantar wound left.
--- NOTE | 2018-05-26 14:40 | PN ---
Teaching Attending Note Name of Resident: Charlette Stewart ATTENDING PHYSICIAN STATEMENT I saw and evaluated the patient. I reviewed the resident's note and discussed the case with the resident. I agree with the resident's findings and plan as documented. SUBJECTIVE: Ms Trent complains of foot pain. No cp, sob, n/v. OBJECTIVE: Last Vital Signs Temp Pulse Resp BP Pulse Ox 36.8 C 78 20 140/61 95 05/26/18 14:09 05/26/18 14:09 05/26/18 09:00 05/26/18 14:09 05/25/18 21:00 Gen: nad Pulm: ctab w/o w/r/r CV: rrr w/o m/r/g Abd: +bs, s/nt/nd Ext: LLE swollen with purulent drainage CBC, BMP 05/26/18 06:30 05/26/18 06:30 ASSESSMENT AND PLAN: (1) Left foot infection Assessment/Plan: -case d/w ID -will need I&D -continue aztreonam and vancomycin Code(s): L08.9 - LOCAL INFECTION OF THE SKIN AND SUBCUTANEOUS TISSUE, UNSP (2) Atherosclerosis of [place] arteries of left leg with ulceration of other part of foot Assessment/Plan: -underwent CT angiogram with stenting -good blood flow -continue aspirin and plavix Code(s): I70.245 - ATHSCL [place] ARTERIES OF LEFT LEG W ULCERATION OTH PRT FOOT (3) Acute on chronic renal failure Assessment/Plan: -resolved Code(s): N17.9 - ACUTE KIDNEY FAILURE, UNSPECIFIED; N18.9 - CHRONIC KIDNEY DISEASE, UNSPECIFIED Qualifiers: Acute renal failure type: unspecified Chronic kidney disease stage: unspecified stage Qualified Code(s): N17.9 - Acute kidney failure, unspecified ; N18.9 - Chronic kidney disease, unspecified; N18.9 - Chronic kidney disease, unspecified (4) HTN (hypertension) Assessment/Plan: -continue labetalol and nifedipine Code(s): I10 - ESSENTIAL (PRIMARY) HYPERTENSION (5) Hx of AKA (above knee amputation) Code(s): Z89.619 - ACQUIRED ABSENCE OF UNSPECIFIED LEG ABOVE KNEE Qualifiers: Laterality: right Qualified Code(s): Z89.611 - Acquired absence of right leg above knee (6) Lupus (systemic lupus erythematosus) Assessment/Plan: -continue low dose prednisone Code(s): M32.9 - SYSTEMIC LUPUS ERYTHEMATOSUS, UNSPECIFIED (7) Hypokalemia -replaced Problem List - Problems (1) Left foot infection Code(s): L08.9 - LOCAL INFECTION OF THE SKIN AND SUBCUTANEOUS TISSUE, UNSP (2) Atherosclerosis of [place] arteries of left leg with ulceration of other part of foot Code(s): I70.245 - ATHSCL [place] ARTERIES OF LEFT LEG W ULCERATION OTH PRT FOOT (3) Acute on chronic renal failure Code(s): N17.9 - ACUTE KIDNEY FAILURE, UNSPECIFIED; N18.9 - CHRONIC KIDNEY DISEASE, UNSPECIFIED Qualifiers: Acute renal failure type: unspecified Chronic kidney disease stage: unspecified stage Qualified Code(s): N17.9 - Acute kidney failure, unspecified ; N18.9 - Chronic kidney disease, unspecified; N18.9 - Chronic kidney disease, unspecified (4) HTN (hypertension) Code(s): I10 - ESSENTIAL (PRIMARY) HYPERTENSION (5) Hx of AKA (above knee amputation) Code(s): Z89.619 - ACQUIRED ABSENCE OF UNSPECIFIED LEG ABOVE KNEE Qualifiers: Laterality: right Qualified Code(s): Z89.611 - Acquired absence of right leg above knee (6) Lupus (systemic lupus erythematosus) Code(s): M32.9 - SYSTEMIC LUPUS ERYTHEMATOSUS, UNSPECIFIED
[2018-05-26] MEDS: SODIUM CHLORIDE 1,000 ML IV SCH (17:33)
[2018-05-26] MEDS: AZTREONAM 1 GM in DEXTROSE 5%-WATER - 50 ML IVPB SCH (17:34)
--- NOTE | 2018-05-26 19:18 | PN ---
Progress Note (short form) - Note Progress Note: Vascular exam unchanged. Distal pulses unchanged. Foot warm with drainage from plantar wound. Will need drainage by Podiatry. No contraindication from vascular perspective. Problem List - Problems (1) Atherosclerosis of [place] arteries of left leg with ulceration of other part of foot Code(s): I70.245 - ATHSCL [place] ARTERIES OF LEFT LEG W ULCERATION OTH PRT FOOT (2) Left foot infection Code(s): L08.9 - LOCAL INFECTION OF THE SKIN AND SUBCUTANEOUS TISSUE, UNSP
[2018-05-27] MEDS: AZTREONAM 1 GM in DEXTROSE 5%-WATER - 50 ML IVPB SCH ×3 (01:59→18:28)
[2018-05-27] MEDS: PHENYLEPH/MINERAL OIL/PETROLAT 28 GM OINTMENT RC SCH ×2 (05:46→15:00)
[2018-05-27] MEDS: GABAPENTIN 300 MG CAPSULE (FP) PO SCH ×3 (05:46→21:42)
[2018-05-27] MEDS: NAPH,MB-DB/K PH,MBDB POWDER PACKET PO SCH (05:46)
--- NOTE | 2018-05-27 07:32 | PN ---
Physical Exam: SUBJECTIVE: Patient seen and examined by me at bedside. No acute events overnight Reports her pain is better today. Otherwise, denies any fever, nausea, vomiting, abdominal pain, chest pain, palpitations, shortness of breath, headaches, loss of consciousness. OBJECTIVE: Vital Signs Period Temp Pulse Resp BP Sys/Hidalgo Pulse Ox Last 24 Hr 98.2 F-98.7 F 78-89 20-20 140-147/55-75 GENERAL: The patient is awake, alert, and fully oriented, in no acute distress. EYES: Sclera anicteric, conjunctiva clear. No ptosis. ENT: Oropharynx clear without exudates, moist mucous membranes. LUNGS: Breath sounds equal, clear to auscultation bilaterally, no wheezes, no crackles, no accessory muscle use. HEART: Regular rate and rhythm, Normal S1 and S2 without murmur, rub or gallop. ABDOMEN: Soft, nontender, nondistended, normoactive bowel sounds EXTREMITIES: (+) erythema, warmth and redness of left grewal extending from above the ankle to below the knee and lateral aspect of the leg. (+) PT pulses bilaterally Active Medications Generic Name Dose Route Start Last Admin Trade Name Freq PRN Reason Stop Dose Admin Acetaminophen 650 mg 05/19/18 17:21 05/24/18 00:16 Tylenol - PO 650 mg Q4H PRN Administration PAIN LEVEL 1-5 Al Hydroxide/Mg Hydroxide 30 ml 05/19/18 17:21 Mylanta Oral Suspension - PO Q6H PRN DYSPEPSIA Alprazolam 0.25 mg 05/24/18 13:16 05/26/18 11:32 Xanax - PO 0.25 mg Q8H PRN Administration ANXIETY Aspirin 81 mg 05/19/18 17:21 05/26/18 09:21 Asa - PO 81 mg DAILY [facility] Administration Clopidogrel Bisulfate 75 mg 05/19/18 17:21 05/26/18 09:22 Plavix - PO 75 mg DAILY [facility] Administration Gabapentin 600 mg 05/19/18 22:00 05/27/18 05:46 Neurontin - PO 600 mg TID [facility] Administration Sodium Chloride 1,000 mls @ 75 mls/hr 05/19/18 17:21 05/26/18 17:33 Normal Saline - IV 75 mls/hr ASDIR [facility] Administration Vancomycin HCl 1,250 mg/ 250 mls @ 250 mls/2 hr 05/24/18 12:00 05/26/18 12:14 Dextrose IVPB 250 mls/2 hr Q24H [facility] Administration Protocol Aztreonam 1 gm/ Dextrose 50 mls @ 100 mls/hr 05/26/18 18:00 05/27/18 01:59 IVPB 100 mls/hr Q8H-IV [facility] Administration Protocol Labetalol HCl 200 mg 05/19/18 22:00 05/26/18 21:41 Normodyne - PO 200 mg BID [facility] Administration Nifedipine 60 mg 05/19/18 22:00 05/26/18 21:41 Procardia Xl - PO 60 mg BID [facility] Administration Ondansetron HCl 4 mg 05/19/18 17:29 Zofran Injection IVPUSH Q6H PRN NAUSEA AND/OR VOMITING Pantoprazole Sodium 40 mg 05/20/18 10:00 05/26/18 09:22 Protonix - PO 40 mg DAILY [facility] Administration Potassium Chloride 40 meq 05/25/18 12:00 05/26/18 21:41 Potassium Chloride Oral Liquid PO 40 meq BID [facility] Administration Potassium Phos/Sodium Phos 1 packet 05/25/18 14:00 05/27/18 05:46 Phos-Nak Packet - PO 1 packet TID [facility] Administration Prednisone 5 mg 05/20/18 10:00 05/26/18 09:21 Deltasone - PO 5 mg DAILY [facility] Administration Tramadol HCl 50 mg 05/26/18 13:24 05/26/18 21:50 Ultram - PO 50 mg Q6H PRN Administration PAIN LEVEL 6-10 ASSESSMENT/PLAN: Patient is a 72 year old female with a PMHx of Lupus since 1978 (On prednisone and Plaquenil), PAD s/p right AKA with iliac stent placements, CKD, Anemia of chronic disease, HTN, HLD, who presented for left foot pain and was found to have cellulitis. Left Foot Cellulitis -Possibly Osteomyelitis -S/P Incision right foot wound by Dr. Gomez (05/20/18) -Scheduled for another I&D tomorrow (05/28/18) by Podiatry -Blood cultures negative -Continue Aztreonam 2gm Q8H (day #10). Continue Vancomycin 1250mg IVPB (Day #4) -Unable to have MRI of the foot done due to patient having permanent eyeliner which contains lead/metal -Triple phase Bone scan inconclusive -CT revealed fluid around the soft tissue of the foot -Will need ID to determine duration of Abx use and further recommendations by Podiatry Lupus -Currently on Prednisone and Plaquenil at home -Continue Prednisone 5mg daily -Discontinue Plaquenil for now PAD s/p Right AKA and PCI -S/P Revascularization left tibial artery with atherectomy and agioplasty and Incision right foot wound by Dr. Gomez (05/20/18). Found to have 80% stenosis distal TP trunk at bifurcation and Diffuse 70% narrowing of ARABELLA. Run off done -Pain control with Tylenol, Tramadol and Gabapentin CKD -Possibly lupus nephritis -Kidney function stable -Continue IV hydration with NS @75mls/hr -Continue to monitor BMP HTN -Continue Nifedipine 60mg BID -Continue Labetolol 200mg BID -Continue to monitor BP F/E/N -IV NS @75mls/hr -Electrolytes wnl -Sodium controlled diet Prophylaxis -Heparin 5000 units SQ TID for DVT -Famotidine 40mg daily for GI Disposition -Full code Charlette Stewart [id number] Visit type - Emergency Visit Emergency Visit: Yes ED Registration Date: 05/17/18 Care time: The patient presented to the Emergency Department on the above date and was hospitalized for further evaluation of their emergent condition. - New Patient This patient is new to me today: No - Critical Care Critical Care patient: No
[2018-05-27 08:31] LABS: HEMOGLOBIN 8.9 GM/dL (10.7-15.3); MCH 26.9 pg (25.7-33.7); MCHC 32.9 g/dl (32.0-36.0); MEAN CELL VOLUME 81.7 fl (80-96); MEAN PLT VOLUME 8.1 fl (7.5-11.1); PLATELET COUNT 537 K/MM3 (134-434); RBC 3.31 M/mm3 (3.60-5.2); RDW 17.7 % (11.6-15.6); WHITE BLOOD COUNT 9.5 K/mm3 (4.0-10.0)
[2018-05-27 08:40] LABS: INR 1.28 (0.83-1.09); PROTHROMBIN TIME (PATIENT) 15.2 SEC (9.7-13.0)
[2018-05-27] MEDS: CLOPIDOGREL BISULFATE 75 MG TABLET (FP) PO SCH (11:00)
[2018-05-27] MEDS: PANTOPRAZOLE 40 MG TABLET (FP) PO SCH (11:00)
[2018-05-27] MEDS: ASPIRIN 81 MG CHEWABLE TABLETS PO SCH (11:00)
[2018-05-27] MEDS: predniSONE 5 MG TABLET (UD) PO SCH (11:00)
[2018-05-27] MEDS: LABETALOL HCL 200 MG TABLET (FP) PO SCH ×2 (11:00→21:42)
[2018-05-27] MEDS: NIFEdipine E.R 60 MG TABLET (UD) PO SCH ×2 (11:00→21:45)
--- NOTE | 2018-05-27 12:01 | PN ---
Teaching Attending Note Name of Resident: Charlette Stewart ATTENDING PHYSICIAN STATEMENT I saw and evaluated the patient. I reviewed the resident's note and discussed the case with the resident. I agree with the resident's findings and plan as documented with exceptions below. SUBJECTIVE: Patient seen and examined. Left foot pain over the sole, no active discharge currently, no fevers, chills or new complaints. OBJECTIVE: Vital Signs Period Temp Pulse Resp BP Sys/[place]go Pulse Ox Last 24 Hr 98.2 F-98.6 F 78-89 20-20 140-147/58-75 Intake & Output 05/24/18 05/25/18 05/26/18 05/27/18 23:59 23:59 23:59 23:59 Intake Total 3300 3100 3700 1725 Balance 3300 3100 3700 1725 Weight 137 lb General: sitting in bed in no acute distress Extremities: left foot, positive Posterior tibial pulse, Left metatarsal head incision well healing with no active discharge, minimal erythema/tenderness around the incision, Left medial foot/sole swelling with induration/tenderness/ erythema/ecchymosis, markedly tender to touch, lower 1/3rd leg erythema resolving from last week. Chest: CTAB, no rales or wheezing Abdomen:Soft, NT Home Medications Medication Instructions Recorded Hydroxychloroquine Sulfate 200 mg PO DAILY 10/20/15 [Plaquenil] Nifedipine [Procardia Xl] 60 mg PO BID 10/20/15 predniSONE [Deltasone -] 5 mg PO DAILY 10/20/15 Iron,Carbonyl [Feosol] 65 mg PO DAILY 11/20/15 Vitamin B Complex [B Complex # 1] 1 each PO DAILY 11/20/15 Labetalol HCl 200 mg PO BID 07/22/17 Calcium Carbonate [Calcium] 1,000 mg PO DAILY 05/17/18 Famotidine [Pepcid] 20 mg PO DAILY 05/17/18 Gabapentin [Neurontin -] 600 mg PO TID 05/17/18 Magnesium Chloride [Slow-Mag -] 64 mg PO DAILY 05/17/18 Multivit-Min36/Iron/Folic Acid 1 each PO DAILY 05/17/18 [Geritol Complete Tablet] levoFLOXacin [Levaquin -] 500 mg PO DAILY 05/17/18 Active Medications Acetaminophen (Tylenol -) 650 mg PO Q4H PRN PRN Reason: PAIN LEVEL 1-5 Last Admin: 05/24/18 00:16 Dose: 650 mg Al Hydroxide/Mg Hydroxide (Mylanta Oral Suspension -) 30 ml PO Q6H PRN PRN Reason: DYSPEPSIA Alprazolam (Xanax -) 0.25 mg PO DAILY PRN PRN Reason: ANXIETY Aspirin (Asa -) 81 mg PO DAILY [facility] Last Admin: 05/26/18 09:21 Dose: 81 mg Clopidogrel Bisulfate (Plavix -) 75 mg PO DAILY [facility] Last Admin: 05/26/18 09:22 Dose: 75 mg Gabapentin (Neurontin -) 600 mg PO TID [facility] Last Admin: 05/27/18 05:46 Dose: 600 mg Sodium Chloride (Normal Saline -) 1,000 mls @ 75 mls/hr IV ASDIR [facility] Last Admin: 05/26/18 17:33 Dose: 75 mls/hr Vancomycin HCl 1,250 mg/ (Dextrose) 250 mls @ 250 mls/2 hr IVPB Q24H [facility]; Protocol Last Admin: 05/26/18 12:14 Dose: 250 mls/2 hr Aztreonam 1 gm/ Dextrose 50 mls @ 100 mls/hr IVPB Q8H-IV [facility]; Protocol Last Admin: 05/27/18 01:59 Dose: 100 mls/hr Labetalol HCl (Normodyne -) 200 mg PO BID [facility] Last Admin: 05/26/18 21:41 Dose: 200 mg Nifedipine (Procardia Xl -) 60 mg PO BID [facility] Last Admin: 05/26/18 21:41 Dose: 60 mg Ondansetron HCl (Zofran Injection) 4 mg IVPUSH Q6H PRN PRN Reason: NAUSEA AND/OR VOMITING Pantoprazole Sodium (Protonix -) 40 mg PO DAILY [facility] Last Admin: 05/26/18 09:22 Dose: 40 mg Potassium Chloride (Potassium Chloride Oral Liquid) 40 meq PO BID [facility] Last Admin: 05/26/18 21:41 Dose: 40 meq Potassium Phos/Sodium Phos (Phos-Nak Packet -) 1 packet PO TID [facility] Last Admin: 05/27/18 05:46 Dose: 1 packet Prednisone (Deltasone -) 5 mg PO DAILY [facility] Last Admin: 05/26/18 09:21 Dose: 5 mg Tramadol HCl (Ultram -) 50 mg PO Q6H PRN PRN Reason: PAIN LEVEL 6-10 Last Admin: 05/26/18 21:50 Dose: 50 mg Laboratory Results - last 24 hr 05/26/18 05/27/18 05/27/18 15:30 07:42 07:42 WBC RBC Hgb Hct MCV MCH MCHC RDW Plt Count MPV PT with INR 15.20 H INR 1.28 H C-Reactive Protein 13.6 H Blood Type B POSITIVE Antibody Screen Negative 05/27/18 07:42 WBC 9.5 RBC 3.31 L Hgb 8.9 L Hct 27.0 L MCV 81.7 MCH 26.9 MCHC 32.9 RDW 17.7 H Plt Count 537 H D MPV 8.1 PT with INR INR C-Reactive Protein Blood Type Antibody Screen Microbiology 05/26/18 14:15 Foot - Left Gram Stain - Final 05/17/18 13:37 Blood - Peripheral Venous Blood Culture - Final NO GROWTH AFTER 5 DAYS INCUBATION 05/17/18 13:37 Blood - Peripheral Venous Blood Culture - Final NO GROWTH AFTER [address] LE results reviewed Bone scan results reviewed ASSESSMENT AND PLAN: 72 yof with PMHx of Lupus since 1978 on Prednisone/plaquenil, PAD s/p right AKA 1996/s/p iliac stents (last in 2010) ?lupus nephritis, CKD (recent Cr 1.2), Anemia, lymphadenopathy (benign per records), HTN, HLD admitted with left foot cellulitis, abscess+/- osteomyelitis. -Left foot cellulitis/abscess +/- Osteomyelitis s/p left metatarsal wound incision ( with no pus), suspected abscess left medial foot -PAD s/p Left tibial artery atherectomy/angioplasty x 2 05/20/2018 -Lupus since 1978 on prednisone/Plaquenil -PAD s/p right AKA 1996, PCI last in 2010 -CKD (?lupus nephritis) -Anemia -Lymphadenopathy -HTN -HLD Plan: Aztreonam/vanco. Monitor vanco levels, ID input noted. Podiatry input noted, plan for left foot I&D in AM Vascular surgery input noted, ASA/plavix BP control labetalol/nifedipine. taper xanax to off Pain control with tramadol prn Gentle hydration while on abx Continue prednisone, hold plaquenil for now DVTPPX start heparin to be held pre-op Dispo pending surgical intervention and clinical improvement. Will need PT eval and wound care arrangements on dc Plan discussed with patient and nursing in detail, all questions answered.
[2018-05-27] MEDS: VANCOMYCIN 1,250 MG in DEXTROSE 5%-WATER - 250 ML IVPB SCH (13:09)
[2018-05-27] MEDS ORDERED: ALPRAZolam 0.25 MG TABLET PO PRN (13:16)
--- NOTE | 2018-05-27 13:34 | PN ---
Progress Note, Physician History of Present Illness: patient stable no new issues plan for or tomorrow - Current Medication List Current Medications: Active Medications Acetaminophen (Tylenol -) 650 mg PO Q4H PRN PRN Reason: PAIN LEVEL 1-5 Last Admin: 05/24/18 00:16 Dose: 650 mg Al Hydroxide/Mg Hydroxide (Mylanta Oral Suspension -) 30 ml PO Q6H PRN PRN Reason: DYSPEPSIA Alprazolam (Xanax -) 0.25 mg PO DAILY PRN PRN Reason: ANXIETY Aspirin (Asa -) 81 mg PO DAILY [facility] Last Admin: 05/27/18 11:00 Dose: 81 mg Clopidogrel Bisulfate (Plavix -) 75 mg PO DAILY [facility] Last Admin: 05/27/18 11:00 Dose: 75 mg Gabapentin (Neurontin -) 600 mg PO TID [facility] Last Admin: 05/27/18 05:46 Dose: 600 mg Heparin Sodium (Porcine) (Heparin -) 5,000 unit SQ TID [facility] Sodium Chloride (Normal Saline -) 1,000 mls @ 75 mls/hr IV ASDIR [facility] Last Admin: 05/26/18 17:33 Dose: 75 mls/hr Vancomycin HCl 1,250 mg/ (Dextrose) 250 mls @ 250 mls/2 hr IVPB Q24H [facility]; Protocol Last Admin: 05/27/18 13:09 Dose: 250 mls/2 hr Aztreonam 1 gm/ Dextrose 50 mls @ 100 mls/hr IVPB Q8H-IV [facility]; Protocol Last Admin: 05/27/18 11:00 Dose: 100 mls/hr Labetalol HCl (Normodyne -) 200 mg PO BID [facility] Last Admin: 05/27/18 11:00 Dose: 200 mg Nifedipine (Procardia Xl -) 60 mg PO BID [facility] Last Admin: 05/27/18 11:00 Dose: 60 mg Ondansetron HCl (Zofran Injection) 4 mg IVPUSH Q6H PRN PRN Reason: NAUSEA AND/OR VOMITING Pantoprazole Sodium (Protonix -) 40 mg PO DAILY [facility] Last Admin: 05/27/18 11:00 Dose: 40 mg Prednisone (Deltasone -) 5 mg PO DAILY [facility] Last Admin: 05/27/18 11:00 Dose: 5 mg Tramadol HCl (Ultram -) 50 mg PO Q6H PRN PRN Reason: PAIN LEVEL 6-10 Last Admin: 05/26/18 21:50 Dose: 50 mg - Objective Vital Signs: Vital Signs Temperature 98.6 F 05/27/18 06:05 Pulse Rate 80 05/27/18 06:05 Respiratory Rate 20 05/27/18 06:05 Blood Pressure 144/58 L 05/27/18 06:05 O2 Sat by Pulse Oximetry (%) 95 05/25/18 21:00 Constitutional: Yes: No Distress, Calm Cardiovascular: Yes: Regular Rate and Rhythm Respiratory: Yes: Regular, CTA Bilaterally Gastrointestinal: Yes: Normal Bowel Sounds, Soft Musculoskeletal: Yes: WNL Extremities: Yes: Other Neurological: Yes: Alert, Oriented Psychiatric: Yes: Alert, Oriented Labs: CBC, BMP 05/27/18 07:42 05/26/18 06:30 INR, PTT INR 1.28 (0.83-1.09) H 05/27/18 07:42 Assessment/Plan Problem List - Problems (1) Left foot infection Code(s): L08.9 - LOCAL INFECTION OF THE SKIN AND SUBCUTANEOUS TISSUE, UNSP (2) Amputated right leg Code(s): Z89.611 - ACQUIRED ABSENCE OF RIGHT LEG ABOVE KNEE (3) Anemia Code(s): D64.9 - ANEMIA, UNSPECIFIED Qualifiers: Anemia type: unspecified type Qualified Code(s): D64.9 - Anemia, unspecified (4) HTN (hypertension) Code(s): I10 - ESSENTIAL (PRIMARY) HYPERTENSION (5) Hx of AKA (above knee amputation) Code(s): Z89.619 - ACQUIRED ABSENCE OF UNSPECIFIED LEG ABOVE KNEE (6) Hydronephrosis Code(s): N13.30 - UNSPECIFIED HYDRONEPHROSIS (7) Lupus (systemic lupus erythematosus) Code(s): M32.9 - SYSTEMIC LUPUS ERYTHEMATOSUS, UNSPECIFIED (8) Ureteral obstruction, right Code(s): N13.5 - CROSSING VESSEL AND STRICTURE OF URETER W/O HYDRONEPHROSIS plan continue current abx wbc has normalized or probably tomorrow rest as per the team
[2018-05-27] MEDS ORDERED: HEPARIN NA (PORCINE) 5,000 UNITS/ML 1ML VIAL SQ SCH (14:00)
[2018-05-27] MEDS ORDERED: PT OWN MED DRAWER 7, Y5N ONE ×3 (17:57→21:24)
--- NOTE | 2018-05-27 19:54 | PN ---
Progress Note (short form) - Note Progress Note: Patient seen for redness and pain left foot. No new questions today. Tmax 98.8 +tender, +erythema, +drainage, wbc=9.5 abscess cellulitis On schedule for 12 on . Will follow. Continue IVABX. Discussed with ID and vascular. Vascular has cleared for I&D. will follow. Betadine dressing to plantar wound left. No new questions today. Consent still to procedure. Reviewed INR. Redo in am.
[2018-05-27] MEDS ORDERED: POTASSIUM CHLORIDE ORAL LIQUID 20 MEQ/15 ML PO SCH (20:00)
[2018-05-27] MEDS: SODIUM CHLORIDE 1,000 ML IV SCH ×2 (21:46→21:47)
[2018-05-28] MEDS ORDERED: PT OWN MED DRAWER 7, Y5N ONE ×3 (01:11→11:17)
[2018-05-28] MEDS: AZTREONAM 1 GM in DEXTROSE 5%-WATER - 50 ML IVPB SCH ×3 (01:15→17:20)
[2018-05-28] MEDS: GABAPENTIN 300 MG CAPSULE (FP) PO SCH ×3 (05:33→21:48)
[2018-05-28] MEDS: PHENYLEPH/MINERAL OIL/PETROLAT 28 GM OINTMENT RC SCH ×3 (05:33→21:49)
[2018-05-28 07:28] LABS: HEMATOCRIT 26.9 % (32.4-45.2); HEMOGLOBIN 8.9 GM/dL (10.7-15.3); MCH 26.9 pg (25.7-33.7); MCHC 33.1 g/dl (32.0-36.0); MEAN CELL VOLUME 81.3 fl (80-96); PLATELET COUNT 542 K/MM3 (134-434); WHITE BLOOD COUNT 9.4 K/mm3 (4.0-10.0)
[2018-05-28 07:33] LABS: INR 1.22 (0.83-1.09); PROTHROMBIN TIME (PATIENT) 14.4 SEC (9.7-13.0)
[2018-05-28 07:36] LABS: ACTIVATED PTT 28.4 SECONDS (25.2-36.5)
--- NOTE | 2018-05-28 07:45 | PN ---
Physical Exam: SUBJECTIVE: Patient seen and examined by me at bedside. Still has chills with pain to the left toe. However, reports adequate pain control with medications Scheduled to have I&D by [employer] Specialist this afternoon Otherwise, denies any fever, nausea, vomiting, abdominal pain, chest pain, palpitations, shortness of breath, headaches, loss of consciousness. OBJECTIVE: Vital Signs Period Temp Pulse Resp BP Sys/[place] Pulse Ox Last 24 Hr 98.0 F-99 F 77-90 20-20 120-154/53-70 GENERAL: The patient is awake, alert, and fully oriented, in no acute distress. EYES: Sclera anicteric, conjunctiva clear. No ptosis. ENT: Oropharynx clear without exudates, moist mucous membranes. LUNGS: Breath sounds equal, clear to auscultation bilaterally, no wheezes, no crackles, no accessory muscle use. HEART: Regular rate and rhythm, Normal S1 and S2 without murmur, rub or gallop. ABDOMEN: Soft, nontender, nondistended, normoactive bowel sounds EXTREMITIES: (+) Improved erythema, warmth and redness of left grewal extending from above the ankle to below the knee and lateral aspect of the leg. (+) PT pulses bilaterally. Dressing of the left foot C/D/I. Laboratory Results 05/28/18 06:30 05/28/18 06:30 05/28/18 06:30 PT with INR 14.40 H INR 1.22 H Active Medications Generic Name Dose Route Start Last Admin Trade Name Freq PRN Reason Stop Dose Admin Acetaminophen 650 mg 05/19/18 17:21 05/24/18 00:16 Tylenol - PO 650 mg Q4H PRN Administration PAIN LEVEL 1-5 Al Hydroxide/Mg Hydroxide 30 ml 05/19/18 17:21 Mylanta Oral Suspension - PO Q6H PRN DYSPEPSIA Alprazolam 0.25 mg 05/27/18 13:16 05/28/18 00:39 Xanax - PO 0.25 mg DAILY PRN Administration ANXIETY Aspirin 81 mg 05/19/18 17:21 05/27/18 11:00 Asa - PO 81 mg DAILY [facility] Administration Clopidogrel Bisulfate 75 mg 05/19/18 17:21 05/27/18 11:00 Plavix - PO 75 mg DAILY [facility] Administration Gabapentin 600 mg 05/19/18 22:00 05/28/18 05:33 Neurontin - PO 600 mg TID [facility] Administration Heparin Sodium (Porcine) 5,000 unit 05/27/18 14:00 05/27/18 15:51 Heparin - SQ 5,000 unit TID [facility] Administration Sodium Chloride 1,000 mls @ 75 mls/hr 05/19/18 17:21 05/27/18 21:47 Normal Saline - IV 75 mls/hr ASDIR [facility] Administration Vancomycin HCl 1,250 mg/ 250 mls @ 250 mls/2 hr 05/24/18 12:00 05/27/18 13:09 Dextrose IVPB 250 mls/2 hr Q24H [facility] Administration Protocol Aztreonam 1 gm/ Dextrose 50 mls @ 100 mls/hr 05/26/18 18:00 05/28/18 01:15 IVPB 100 mls/hr Q8H-IV [facility] Administration Protocol Labetalol HCl 200 mg 05/19/18 22:00 05/27/18 21:42 Normodyne - PO 200 mg BID [facility] Administration Nifedipine 60 mg 05/19/18 22:00 05/27/18 21:45 Procardia Xl - PO 60 mg BID [facility] Administration Ondansetron HCl 4 mg 05/19/18 17:29 Zofran Injection IVPUSH Q6H PRN NAUSEA AND/OR VOMITING Pantoprazole Sodium 40 mg 05/20/18 10:00 05/27/18 11:00 Protonix - PO 40 mg DAILY [facility] Administration Prednisone 5 mg 05/20/18 10:00 05/27/18 11:00 Deltasone - PO 5 mg DAILY [facility] Administration Tramadol HCl 50 mg 05/26/18 13:24 05/26/18 21:50 Ultram - PO 50 mg Q6H PRN Administration PAIN LEVEL 6-10 ASSESSMENT/PLAN: Patient is a 72 year old female with a PMHx of Lupus since 1978 (On prednisone and Plaquenil), PAD s/p right AKA with iliac stent placements, CKD, Anemia of chronic disease, HTN, HLD, who presented for left foot pain and was found to have cellulitis. Left Foot Cellulitis -Possibly Osteomyelitis -S/P Incision right foot wound by Dr. Gomez (05/20/18) -Scheduled for another I&D today (05/28/18) by Podiatry -Blood cultures negative -Continue Aztreonam 2gm Q8H (day #11). Continue Vancomycin 1250mg IVPB (Day #5) -Unable to have MRI of the foot done due to patient having permanent eyeliner which contains lead/metal -Triple phase Bone scan inconclusive -CT revealed fluid around the soft tissue of the foot -Will need ID to determine duration of Abx use and further recommendations by Podiatry Lupus -Currently on Prednisone and Plaquenil at home -Continue Prednisone 5mg daily -Discontinue Plaquenil for now PAD s/p Right AKA and PCI -S/P Revascularization left tibial artery with atherectomy and agioplasty and Incision right foot wound by Dr. Gomez (05/20/18). Found to have 80% stenosis distal TP trunk at bifurcation and Diffuse 70% narrowing of ARABELLA. Run off done -Pain control with Tylenol, Tramadol and Gabapentin -Continue ASA 81 mg daily and Plavix 7mg daily CKD -Possibly lupus nephritis -Kidney function stable -Continue IV hydration with NS @75mls/hr -Continue to monitor BMP HTN -Continue Nifedipine 60mg BID -Continue Labetolol 200mg BID -Continue to monitor BP F/E/N -IV NS @75mls/hr -Electrolytes wnl -NPO until procedure Prophylaxis -Heparin 5000 units SQ TID for DVT -Famotidine 40mg daily for GI Disposition -Full code -I&D today Charlette Stewart [id number] Visit type - Emergency Visit Emergency Visit: Yes ED Registration Date: 05/17/18 Care time: The patient presented to the Emergency Department on the above date and was hospitalized for further evaluation of their emergent condition. - New Patient This patient is new to me today: No - Critical Care Critical Care patient: No
[2018-05-28 07:48] LABS: ALBUMIN 2.2 g/dl (3.4-5.0); ALK PHOS 72 U/L (45-117); ANION GAP 4 MMOL/L (8-16); BILIRUBIN,TOTAL 0.2 mg/dL (0.2-1); BLOOD UREA NITROGEN 15 mg/dL (7-18); CALCIUM 8.7 mg/dL (8.5-10.1); CHLORIDE 111 mmol/L (98-107); CO2 28 mmol/L (21-32); CREATININE 0.9 mg/dL (0.55-1.3); GLUCOSE,RANDOM 76 mg/dL (74-106); MAGNESIUM 2.2 mg/dL (1.8-2.4); PHOSPHOROUS 4.2 mg/dL (2.5-4.9); POTASSIUM 4.1 mmol/L (3.5-5.1); SGOT/AST 25 U/L (15-37); SGPT/ALT 30 U/L (13-61); SODIUM 143 mmol/L (136-145); TOT PROT 6.9 g/dl (6.4-8.2)
[2018-05-28] MEDS: PANTOPRAZOLE 40 MG TABLET (FP) PO SCH (09:14)
[2018-05-28] MEDS: LABETALOL HCL 200 MG TABLET (FP) PO SCH ×2 (09:14→21:48)
[2018-05-28] MEDS: NIFEdipine E.R 60 MG TABLET (UD) PO SCH ×2 (09:15→21:49)
--- NOTE | 2018-05-28 11:22 | PN ---
Teaching Attending Note Name of Resident: Charlette Stewart ATTENDING PHYSICIAN STATEMENT I saw and evaluated the patient. I reviewed the resident's note and discussed the case with the resident. I agree with the resident's findings and plan as documented with exceptions below. SUBJECTIVE: Patient seen and examined. left foot pain unchanged, no new fevers or chills. OBJECTIVE: Vital Signs Period Temp Pulse Resp BP Sys/Hidalgo Pulse Ox Last 24 Hr 98.0 F-99 F 77-90 20-119 120-154/53-70 98 Intake & Output 05/25/18 05/26/18 05/27/18 05/28/18 23:59 23:59 23:59 23:59 Intake Total 3100 3700 2940 625 Output Total 1 Balance 3100 3700 2940 624 Weight 137 lb General: sitting in bed in no acute distress Extremities: left foot exam unchanged, no new discharge or erythema, persistent tenderness/induration/erythema on plantar aspect, clean incision left first metatarsal head, positive PT pulses Active Medications Acetaminophen (Tylenol -) 650 mg PO Q4H PRN PRN Reason: PAIN LEVEL 1-5 Last Admin: 05/24/18 00:16 Dose: 650 mg Al Hydroxide/Mg Hydroxide (Mylanta Oral Suspension -) 30 ml PO Q6H PRN PRN Reason: DYSPEPSIA Alprazolam (Xanax -) 0.25 mg PO DAILY PRN PRN Reason: ANXIETY Last Admin: 05/28/18 00:39 Dose: 0.25 mg Aspirin (Asa -) 81 mg PO DAILY [facility] Last Admin: 05/27/18 11:00 Dose: 81 mg Clopidogrel Bisulfate (Plavix -) 75 mg PO DAILY [facility] Last Admin: 05/27/18 11:00 Dose: 75 mg Gabapentin (Neurontin -) 600 mg PO TID [facility] Last Admin: 05/28/18 05:33 Dose: 600 mg Heparin Sodium (Porcine) (Heparin -) 5,000 unit SQ TID [facility] Last Admin: 05/27/18 15:51 Dose: 5,000 unit Sodium Chloride (Normal Saline -) 1,000 mls @ 75 mls/hr IV ASDIR [facility] Last Admin: 05/27/18 21:47 Dose: 75 mls/hr Vancomycin HCl 1,250 mg/ (Dextrose) 250 mls @ 250 mls/2 hr IVPB Q24H [facility]; Protocol Last Admin: 05/27/18 13:09 Dose: 250 mls/2 hr Aztreonam 1 gm/ Dextrose 50 mls @ 100 mls/hr IVPB Q8H-IV [facility]; Protocol Last Admin: 05/28/18 09:14 Dose: 100 mls/hr Labetalol HCl (Normodyne -) 200 mg PO BID [facility] Last Admin: 05/28/18 09:14 Dose: 200 mg Nifedipine (Procardia Xl -) 60 mg PO BID [facility] Last Admin: 05/28/18 09:15 Dose: 60 mg Ondansetron HCl (Zofran Injection) 4 mg IVPUSH Q6H PRN PRN Reason: NAUSEA AND/OR VOMITING Pantoprazole Sodium (Protonix -) 40 mg PO DAILY [facility] Last Admin: 05/28/18 09:14 Dose: 40 mg Prednisone (Deltasone -) 5 mg PO DAILY [facility] Last Admin: 05/27/18 11:00 Dose: 5 mg Tramadol HCl (Ultram -) 50 mg PO Q6H PRN PRN Reason: PAIN LEVEL 6-10 Last Admin: 05/26/18 21:50 Dose: 50 mg Laboratory Results - last 24 hr 05/27/18 05/28/18 05/28/18 12:25 06:30 06:30 WBC 9.4 RBC 3.30 L Hgb 8.9 L Hct 26.9 L MCV 81.3 MCH 26.9 MCHC 33.1 RDW 18.0 H Plt Count 542 H MPV 8.0 PT with INR 14.40 H INR 1.22 H PTT (Actin FS) 28.4 Sodium Potassium Chloride Carbon Dioxide Anion Gap BUN Creatinine Creat Clearance w eGFR Random Glucose Calcium Phosphorus Magnesium Total Bilirubin AST ALT Alkaline Phosphatase Total Protein Albumin Vancomycin Pre-Dose 15.7 L 05/28/18 06:30 WBC RBC Hgb Hct MCV MCH MCHC RDW Plt Count MPV PT with INR INR PTT (Actin FS) Sodium 143 Potassium 4.1 Chloride 111 H Carbon Dioxide 28 Anion Gap 4 L BUN 15 Creatinine 0.9 Creat Clearance w eGFR > 60 Random Glucose 76 Calcium 8.7 Phosphorus 4.2 Magnesium 2.2 Total Bilirubin 0.2 AST 25 ALT 30 Alkaline Phosphatase 72 Total Protein 6.9 Albumin 2.2 L Vancomycin Pre-Dose Microbiology 05/26/18 14:15 Foot - Left Gram Stain - Final 05/26/18 14:15 Foot - Left Wound Culture - Preliminary NO GROWTH OBTAINED AFTER 24 HOURS INCUBATION, REINCUBATED. 05/17/18 13:37 Blood - Peripheral Venous Blood Culture - Final NO GROWTH AFTER 5 DAYS INCUBATION 05/17/18 13:37 Blood - Peripheral Venous Blood Culture - Final NO GROWTH AFTER 5 DAYS INCUBATION ASSESSMENT AND PLAN: 72 yof with PMHx of Lupus since 1978 on Prednisone/plaquenil, PAD s/p right AKA 1996/s/p iliac stents (last in 2010) ?lupus nephritis, CKD (recent Cr 1.2), Anemia, lymphadenopathy (benign per records), HTN, HLD admitted with left foot cellulitis, abscess+/- osteomyelitis. -Left foot cellulitis/abscess +/- Osteomyelitis s/p left metatarsal wound incision ( with no pus), suspected abscess left medial foot -PAD s/p Left tibial artery atherectomy/angioplasty x 2 05/20/2018 -Lupus since 1978 on prednisone/Plaquenil -PAD s/p right AKA 1996, PCI last in 2010 -CKD (?lupus nephritis) -Anemia -Lymphadenopathy -HTN -HLD Plan: Aztreonam/vanco. Monitor vanco levels, ID input noted. Podiatry input noted, plan for left foot I&D today Vascular surgery input noted, ASA/plavix BP control labetalol/nifedipine. taper xanax to off Pain control with tramadol prn Gentle hydration while on abx Continue prednisone, hold plaquenil for now DVTPPX Heparin to be held pre-op Dispo pending surgical intervention and clinical improvement. Will need PT eval and wound care arrangements on dc Plan discussed with patient in detail, all questions answered.
--- NOTE | 2018-05-28 12:15 | PN ---
Progress Note, Physician History of Present Illness: patient stable no new issues - Current Medication List Current Medications: Active Medications Acetaminophen (Tylenol -) 650 mg PO Q4H PRN PRN Reason: PAIN LEVEL 1-5 Last Admin: 05/24/18 00:16 Dose: 650 mg Al Hydroxide/Mg Hydroxide (Mylanta Oral Suspension -) 30 ml PO Q6H PRN PRN Reason: DYSPEPSIA Alprazolam (Xanax -) 0.25 mg PO DAILY PRN PRN Reason: ANXIETY Last Admin: 05/28/18 00:39 Dose: 0.25 mg Aspirin (Asa -) 81 mg PO DAILY [facility] Last Admin: 05/27/18 11:00 Dose: 81 mg Clopidogrel Bisulfate (Plavix -) 75 mg PO DAILY [facility] Last Admin: 05/27/18 11:00 Dose: 75 mg Gabapentin (Neurontin -) 600 mg PO TID [facility] Last Admin: 05/28/18 05:33 Dose: 600 mg Heparin Sodium (Porcine) (Heparin -) 5,000 unit SQ TID [facility] Last Admin: 05/27/18 15:51 Dose: 5,000 unit Sodium Chloride (Normal Saline -) 1,000 mls @ 75 mls/hr IV ASDIR [facility] Last Admin: 05/27/18 21:47 Dose: 75 mls/hr Vancomycin HCl 1,250 mg/ (Dextrose) 250 mls @ 250 mls/2 hr IVPB Q24H [facility]; Protocol Last Admin: 05/27/18 13:09 Dose: 250 mls/2 hr Aztreonam 1 gm/ Dextrose 50 mls @ 100 mls/hr IVPB Q8H-IV [facility]; Protocol Last Admin: 05/28/18 09:14 Dose: 100 mls/hr Labetalol HCl (Normodyne -) 200 mg PO BID [facility] Last Admin: 05/28/18 09:14 Dose: 200 mg Nifedipine (Procardia Xl -) 60 mg PO BID [facility] Last Admin: 05/28/18 09:15 Dose: 60 mg Ondansetron HCl (Zofran Injection) 4 mg IVPUSH Q6H PRN PRN Reason: NAUSEA AND/OR VOMITING Pantoprazole Sodium (Protonix -) 40 mg PO DAILY [facility] Last Admin: 05/28/18 09:14 Dose: 40 mg Prednisone (Deltasone -) 5 mg PO DAILY [facility] Last Admin: 05/27/18 11:00 Dose: 5 mg Tramadol HCl (Ultram -) 50 mg PO Q6H PRN PRN Reason: PAIN LEVEL 6-10 Last Admin: 05/26/18 21:50 Dose: 50 mg - Objective Vital Signs: Vital Signs Temperature 98.5 F 05/28/18 08:42 Pulse Rate 79 05/28/18 08:42 Respiratory Rate 119 H 05/28/18 08:42 Blood Pressure 154/69 05/28/18 08:42 O2 Sat by Pulse Oximetry (%) 98 05/28/18 08:42 Constitutional: Yes: No Distress, Calm Cardiovascular: Yes: Regular Rate and Rhythm Respiratory: Yes: Regular, CTA Bilaterally Gastrointestinal: Yes: Normal Bowel Sounds, Soft Musculoskeletal: Yes: WNL Extremities: Yes: Other Wound/Incision: Yes: Dressing Dry and Intact Neurological: Yes: Alert, Oriented Psychiatric: Yes: Alert, Oriented Labs: CBC, BMP 05/28/18 06:30 05/28/18 06:30 INR, PTT INR 1.22 (0.83-1.09) H 05/28/18 06:30 Assessment/Plan Problem List - Problems (1) Left foot infection Code(s): L08.9 - LOCAL INFECTION OF THE SKIN AND SUBCUTANEOUS TISSUE, UNSP (2) Amputated right leg Code(s): Z89.611 - ACQUIRED ABSENCE OF RIGHT LEG ABOVE KNEE (3) Anemia Code(s): D64.9 - ANEMIA, UNSPECIFIED Qualifiers: Anemia type: unspecified type Qualified Code(s): D64.9 - Anemia, unspecified (4) HTN (hypertension) Code(s): I10 - ESSENTIAL (PRIMARY) HYPERTENSION (5) Hx of AKA (above knee amputation) Code(s): Z89.619 - ACQUIRED ABSENCE OF UNSPECIFIED LEG ABOVE KNEE (6) Hydronephrosis Code(s): N13.30 - UNSPECIFIED HYDRONEPHROSIS (7) Lupus (systemic lupus erythematosus) Code(s): M32.9 - SYSTEMIC LUPUS ERYTHEMATOSUS, UNSPECIFIED (8) Ureteral obstruction, right Code(s): N13.5 - CROSSING VESSEL AND STRICTURE OF URETER W/O HYDRONEPHROSIS plan continue current abx await for all the reports wound care rest as per the team patient stable
[2018-05-28] MEDS ORDERED: PROPOFOL 20 ML ONE (12:22)
[2018-05-28] MEDS ORDERED: MIDAZOLAM HCL 2 MG/2 ML SINGLE DOSE VIAL ONE (12:22)
[2018-05-28] MEDS ORDERED: BUPIVACAINE HCL/PF 0.5% (5MG/ML) 10 ML VIAL ONE (12:23)
[2018-05-28] MEDS ORDERED: LIDOCAINE HCL 1%, 10 MG/ML (20ML VIAL) ONE (12:23)
[2018-05-28] MEDS ORDERED: BUPIVACAINE HCL/PF (5 MG/ML) 30 ML VIAL IJ ONE (12:35)
[2018-05-28] MEDS ORDERED: LIDOCAINE HCL 1%, 10 MG/ML (20ML VIAL) INF ONE (12:35)
[2018-05-28] MEDS ORDERED: BACITRACIN 50,000 UNITS VIAL TP ONE (12:55)
[2018-05-28] MEDS ORDERED: MAG HYDROX/AL HYDROX/SIMETH 30 ML UNIT-DOSE CUP PO PRN (13:40)
--- NOTE | 2018-05-28 13:47 | OP ---
Operative Note - Note: Operative Date: 05/28/18 Pre-Operative Diagnosis: Abscess 1st mpj and plantar aspect left foot Operation: Incision and drainage with pulse lavage antibiotic irrigation. Findings: Purulent drainage 1st mpj Serosanguinous drainage plantar foot Implants: none Post-Operative Diagnosis: Same as Pre-op Surgeon: Niki Daniels Aviation Safety Technician: Kendell Colindres Anesthesia: Local, MAC Estimated Blood Loss (mls): 20 Instrument used (Debridements only): scalpel Drains & Tubes with Location: 1/4 inch iodoform packing Operative Report Dictated: Yes
--- NOTE | 2018-05-28 16:21 | OP ---
DATE OF OPERATION: 05/28/2018 SURGEON: Niki Daniels DPM ASSISTANTS: Kendell Colindres DPM and Angelica Rizo, PGY-3 PREOPERATIVE DIAGNOSIS: Left foot abscess. POSTOPERATIVE DIAGNOSIS: Left foot abscess. PROCEDURE: Incision and drainage of left foot abscess, possible wound debridement. ANESTHESIA: Local with MAC. ESTIMATED BLOOD LOSS: 10 mL CONDITION OF PATIENT: Stable. COMPLICATIONS: None. INJECTABLES: 15 mL of a 1:1 mixture of 1% lidocaine plain and 0.5% Marcaine plain were used preoperatively. MATERIALS: Quarter-inch Iodoform packing and postoperative dressing, Betadine-soaked Adaptic, 4 x 4's, sterile gauze, abdominal pads, Kerlix, and Chong bandage. HEMOSTASIS: None. PATHOLOGY: None. FINDING AND PROCEDURE: The patient was brought to the operating room and placed on the operating table in the supine position. Once IV sedation was initiated, exactly 15 mL of a 1:1 mixture of 1% lidocaine plain and 0.5% Marcaine plain were injected throughout the surgical site to the left foot. The left foot was then scrubbed, prepped, and draped in the usual aseptic manner. Attention was first sought to the plantar medial aspect of the left foot. Using number-15 blade, a circumferential incision was made in the medial arch. A lazy-S incision was made. Care was taken not to disrupt the neurovascular structures. At this time, using a hemostat, all the soft tissue was assessed, and no significant purulence was expressed. Next, attention was noted to the medial aspect of the first metatarsophalangeal joint where an about 1-cm full-thickness incision was made on the medial aspect. At this time, about 1 mL of purulence was expressed. Wound culture was taken and sent to Pathology. Also deep wound culture from the medial plantar aspect of the lazy-S incision was taken and sent to Pathology. At this time, both wounds were irrigated with normal saline with bacitracin in it using pulse lavage, and both incision sites were packed using 1/4-inch Iodoform packing. The left foot was dressed using Betadine-soaked Adaptic, 4 x 4's, sterile gauze, Kerlix, and abdominal pad, and Chong bandage. Patient tolerated the procedure and the anesthesia well and was transferred to the postanesthesia care unit with vital signs stable and vascular status intact to the left lower extremity. Patient will be transferred to the floor and will be followed by and medicine team. Angelica Rizo, PGY-3 dictating for DANIELLE Bartholomew DPM [id number]
[2018-05-28] MEDS: traMADol HCL 50 MG TABLET PO PRN ×2 (17:18→23:42)
[2018-05-28] MEDS: SODIUM CHLORIDE 1,000 ML IV SCH (17:22)
[2018-05-28] MEDS: ACETAMINOPHEN 325 MG TABLET (FP) PO PRN (18:11)
[2018-05-28] MEDS ORDERED: ACETAMINOPHEN 1000 MG/100 ML VIAL (NON FORMULARY) IVPB ONE (18:27)
[2018-05-28] MEDS ORDERED: ACETAMINOPHEN 500 MG TABLET (FP) PO ONE (20:00)
[2018-05-28] MEDS: ALPRAZolam 0.25 MG TABLET PO PRN (21:49)
[2018-05-29] MEDS: AZTREONAM 1 GM in DEXTROSE 5%-WATER - 50 ML IVPB SCH ×3 (02:29→17:50)
[2018-05-29] MEDS: ACETAMINOPHEN 325 MG TABLET (FP) PO PRN ×2 (02:30→06:17)
[2018-05-29] MEDS: GABAPENTIN 300 MG CAPSULE (FP) PO SCH ×3 (06:17→21:21)
[2018-05-29] MEDS: PHENYLEPH/MINERAL OIL/PETROLAT 28 GM OINTMENT RC SCH ×3 (06:48→21:21)
[2018-05-29 07:24] LABS: HEMATOCRIT 25.6 % (32.4-45.2); HEMOGLOBIN 8.5 GM/dL (10.7-15.3); MCH 26.9 pg (25.7-33.7); MCHC 33.1 g/dl (32.0-36.0); MEAN CELL VOLUME 81.4 fl (80-96); MEAN PLT VOLUME 7.8 fl (7.5-11.1); PLATELET COUNT 513 K/MM3 (134-434); RBC 3.15 M/mm3 (3.60-5.2); RDW 17.9 % (11.6-15.6); WHITE BLOOD COUNT 8.3 K/mm3 (4.0-10.0)
[2018-05-29] MEDS ORDERED: PT OWN MED DRAWER 7, Y5N ONE (09:01)
[2018-05-29] MEDS: traMADol HCL 50 MG TABLET PO PRN ×2 (09:03→21:20)
[2018-05-29] MEDS: SODIUM CHLORIDE 1,000 ML IV SCH (09:04)
[2018-05-29] MEDS: LABETALOL HCL 200 MG TABLET (FP) PO SCH ×2 (09:07→21:21)
[2018-05-29] MEDS: predniSONE 5 MG TABLET (UD) PO SCH (09:07)
[2018-05-29] MEDS: NIFEdipine E.R 60 MG TABLET (UD) PO SCH ×2 (09:07→21:21)
[2018-05-29] MEDS: ASPIRIN 81 MG CHEWABLE TABLETS PO SCH (09:07)
[2018-05-29] MEDS: PANTOPRAZOLE 40 MG TABLET (FP) PO SCH (09:07)
--- NOTE | 2018-05-29 09:23 | PN ---
Physical Exam: SUBJECTIVE: Patient seen and examined by me at bedside. Patient s/p I&D with pulse lavage antibiotic irrigation of left foot POD #1. Patient tolerated procedure well but complaining of pain with no relief of tylenol and ultram. Patient reports 50 years ago she had palpitations with codeine but had it after that incident with no symptoms. Requesting for stronger medications. Otherwise, patient denies any fever, nausea, vomiting, abdominal pain, chest pain, palpitations, shortness of breath, headaches, loss of consciousness. OBJECTIVE: Vital Signs Period Temp Pulse Resp BP Sys/Hidalgo Pulse Ox Last 24 Hr 97.8 F-99.1 F 71-83 14-20 138-161/48-72 95-98 GENERAL: The patient is awake, alert, and fully oriented, in no acute distress. EYES: Sclera anicteric, conjunctiva clear. No ptosis. ENT: Oropharynx clear without exudates, moist mucous membranes. LUNGS: Breath sounds equal, clear to auscultation bilaterally, no wheezes, no crackles, no accessory muscle use. HEART: Regular rate and rhythm, Normal S1 and S2 without murmur, rub or gallop. ABDOMEN: Soft, nontender, nondistended, normoactive bowel sounds EXTREMITIES: (+) Improved erythema, warmth and redness of left grewal extending from above the ankle to below the knee and lateral aspect of the leg. (+) PT pulses bilaterally. Dressing of the left foot C/D/I. Laboratory Results 05/29/18 06:10 WBC 8.3 RBC 3.15 L Hgb 8.5 L Hct 25.6 L MCV 81.4 MCH 26.9 MCHC 33.1 RDW 17.9 H Plt Count 513 H MPV 7.8 Active Medications Generic Name Dose Route Start Last Admin Trade Name Freq PRN Reason Stop Dose Admin Acetaminophen 650 mg 05/28/18 13:40 05/29/18 06:17 Tylenol - PO 650 mg Q4H PRN Administration PAIN LEVEL 1-5 Al Hydroxide/Mg Hydroxide 30 ml 05/28/18 13:40 Mylanta Oral Suspension - PO Q6H PRN DYSPEPSIA Alprazolam 0.25 mg 05/28/18 13:40 05/28/18 21:49 Xanax - PO 0.25 mg DAILY PRN Administration ANXIETY Aspirin 81 mg 05/29/18 10:00 05/29/18 09:07 Asa - PO 81 mg DAILY [facility] Administration Gabapentin 600 mg 05/28/18 14:00 05/29/18 06:17 Neurontin - PO 600 mg TID [facility] Administration Aztreonam 1 gm/ Dextrose 50 mls @ 100 mls/hr 05/28/18 18:00 05/29/18 09:07 IVPB 100 mls/hr Q8H-IV [facility] Administration Protocol Sodium Chloride 1,000 mls @ 75 mls/hr 05/28/18 13:40 05/29/18 09:04 Normal Saline - IV 75 mls/hr ASDIR [facility] Administration Vancomycin HCl 1,250 mg/ 250 mls @ 250 mls/2 hr 05/29/18 12:00 Dextrose IVPB Q24H [facility] Protocol Labetalol HCl 200 mg 05/28/18 22:00 05/29/18 09:07 Normodyne - PO 200 mg BID [facility] Administration Nifedipine 60 mg 05/28/18 22:00 05/29/18 09:07 Procardia Xl - PO 60 mg BID [facility] Administration Pantoprazole Sodium 40 mg 05/29/18 10:00 05/29/18 09:07 Protonix - PO 40 mg DAILY [facility] Administration Prednisone 5 mg 05/29/18 10:00 05/29/18 09:07 Deltasone - PO 5 mg DAILY [facility] Administration Tramadol HCl 50 mg 05/28/18 13:40 05/29/18 09:03 Ultram - PO 50 mg Q6H PRN Administration PAIN LEVEL 6-10 ASSESSMENT/PLAN: Patient is a 72 year old female with a PMHx of Lupus since 1978 (On prednisone and Plaquenil), PAD s/p right AKA with iliac stent placements, CKD, Anemia of chronic disease, HTN, HLD, who presented for left foot pain and was found to have cellulitis. Left Foot Cellulitis -Possibly Osteomyelitis -S/P Incision right foot wound by Dr. Gomez (05/20/18) -S/P I&D left foot POD #1(05/28/18) by Podiatry -Blood cultures negative -Continue Aztreonam 2gm Q8H (day #12). Continue Vancomycin 1250mg IVPB (Day #6) -Awaiting wound cultures -Will need ID to determine duration of Abx use and further recommendations by Podiatry Lupus -Currently on Prednisone and Plaquenil at home -Continue Prednisone 5mg daily -Discontinue Plaquenil for now PAD s/p Right AKA and PCI -S/P Revascularization left tibial artery with atherectomy and agioplasty and Incision right foot wound by Dr. Gomez (05/20/18). Found to have 80% stenosis distal TP trunk at bifurcation and Diffuse 70% narrowing of ARABELLA. Run off done -Pain control with Tylenol, Tramadol and Gabapentin -Continue ASA 81 mg daily and Plavix 7mg daily CKD -Possibly lupus nephritis -Kidney function stable -Continue IV hydration with NS @75mls/hr -Continue to monitor BMP HTN -Continue Nifedipine 60mg BID -Continue Labetolol 200mg BID -Continue to monitor BP F/E/N -IV NS @75mls/hr -Electrolytes wnl -Sodium controlled diet Prophylaxis -Heparin 5000 units SQ TID for DVT -Famotidine 40mg daily for GI Disposition -Full code -Cultures pending Charlette Stewart [id number] Visit type - Emergency Visit Emergency Visit: Yes ED Registration Date: 05/17/18 Care time: The patient presented to the Emergency Department on the above date and was hospitalized for further evaluation of their emergent condition. - New Patient This patient is new to me today: No - Critical Care Critical Care patient: No
--- NOTE | 2018-05-29 10:25 | PN ---
Progress Note (short form) - Note Progress Note: pod#1. Patient has pain. Patient found sitting in a chair leg hanging down. +dry clean dressing left foot, wbc=8.3, no growth normal post op NO WEIGHT BEARING LEFT FOOT. Dressing to be changed by Dr. Daniels. Re- emphasized to patient need to not bare weight on left foot.
--- NOTE | 2018-05-29 12:01 | PN ---
Teaching Attending Note Name of Resident: Charlette Stewart ATTENDING PHYSICIAN STATEMENT I saw and evaluated the patient. I reviewed the resident's note and discussed the case with the resident. I agree with the resident's findings and plan as documented with exceptions below. SUBJECTIVE: Patient seen and examined. Left foot pain, no new concerns, per her seen by Dr. Daniels this AM, was recommended bedrest for now OBJECTIVE: Vital Signs Period Temp Pulse Resp BP Sys/Hidalgo Pulse Ox Last 24 Hr 97.8 F-99.1 F 71-83 14-20 138-161/48-76 95-98 Intake & Output 05/26/18 05/27/18 05/28/18 05/29/18 23:59 23:59 23:59 23:59 Intake Total 3700 2940 1850 1025 Output Total 1 Balance 3700 2940 1849 1025 General: sitting in bed in no acute distress Chest: CTAB, no rales or wheezing Abdomen;Soft, NT Extremities: left foot dressing, surrounding leg erythema almost resolved Home Medications Medication Instructions Recorded Hydroxychloroquine Sulfate 200 mg PO DAILY 10/20/15 [Plaquenil] Nifedipine [Procardia Xl] 60 mg PO BID 10/20/15 predniSONE [Deltasone -] 5 mg PO DAILY 10/20/15 Iron,Carbonyl [Feosol] 65 mg PO DAILY 11/20/15 Vitamin B Complex [B Complex # 1] 1 each PO DAILY 11/20/15 Labetalol HCl 200 mg PO BID 07/22/17 Calcium Carbonate [Calcium] 1,000 mg PO DAILY 05/17/18 Famotidine [Pepcid] 20 mg PO DAILY 05/17/18 Gabapentin [Neurontin -] 600 mg PO TID 05/17/18 Magnesium Chloride [Slow-Mag -] 64 mg PO DAILY 05/17/18 Multivit-Min36/Iron/Folic Acid 1 each PO DAILY 05/17/18 [Geritol Complete Tablet] levoFLOXacin [Levaquin -] 500 mg PO DAILY 05/17/18 Active Medications Acetaminophen (Tylenol -) 650 mg PO Q4H PRN PRN Reason: PAIN LEVEL 1-5 Last Admin: 05/29/18 06:17 Dose: 650 mg Al Hydroxide/Mg Hydroxide (Mylanta Oral Suspension -) 30 ml PO Q6H PRN PRN Reason: DYSPEPSIA Alprazolam (Xanax -) 0.25 mg PO DAILY PRN PRN Reason: ANXIETY Last Admin: 05/28/18 21:49 Dose: 0.25 mg Aspirin (Asa -) 81 mg PO DAILY [facility] Last Admin: 05/29/18 09:07 Dose: 81 mg Gabapentin (Neurontin -) 600 mg PO TID [facility] Last Admin: 05/29/18 06:17 Dose: 600 mg Aztreonam 1 gm/ Dextrose 50 mls @ 100 mls/hr IVPB Q8H-IV [facility]; Protocol Last Admin: 05/29/18 09:07 Dose: 100 mls/hr Sodium Chloride (Normal Saline -) 1,000 mls @ 75 mls/hr IV ASDIR [facility] Last Admin: 05/29/18 09:04 Dose: 75 mls/hr Vancomycin HCl 1,250 mg/ (Dextrose) 250 mls @ 250 mls/2 hr IVPB Q24H [facility]; Protocol Labetalol HCl (Normodyne -) 200 mg PO BID [facility] Last Admin: 05/29/18 09:07 Dose: 200 mg Nifedipine (Procardia Xl -) 60 mg PO BID [facility] Last Admin: 05/29/18 09:07 Dose: 60 mg Pantoprazole Sodium (Protonix -) 40 mg PO DAILY [facility] Last Admin: 05/29/18 09:07 Dose: 40 mg Prednisone (Deltasone -) 5 mg PO DAILY [facility] Last Admin: 05/29/18 09:07 Dose: 5 mg Tramadol HCl (Ultram -) 50 mg PO Q6H PRN PRN Reason: PAIN LEVEL 6-10 Last Admin: 05/29/18 09:03 Dose: 50 mg Laboratory Results - last 24 hr 05/29/18 06:10 WBC 8.3 RBC 3.15 L Hgb 8.5 L Hct 25.6 L MCV 81.4 MCH 26.9 MCHC 33.1 RDW 17.9 H Plt Count 513 H MPV 7.8 Microbiology 05/28/18 13:30 Foot - Left Wound Culture - Preliminary NO GROWTH OBTAINED AFTER 24 HOURS INCUBATION, REINCUBATED. 05/28/18 13:30 Foot - Left Wound Culture - Preliminary NO GROWTH OBTAINED AFTER 24 HOURS INCUBATION, REINCUBATED. 05/26/18 14:15 Foot - Left Gram Stain - Final 05/26/18 14:15 Foot - Left Wound Culture - Final NO GROWTH OF AEROBIC ORGANISMS AFTER 48 HOURS INCUBATION 05/17/18 13:37 Blood - Peripheral Venous Blood Culture - Final NO GROWTH AFTER 5 DAYS INCUBATION 05/17/18 13:37 Blood - Peripheral Venous Blood Culture - Final NO GROWTH AFTER 5 DAYS INCUBATION ASSESSMENT AND PLAN: 72 yof with PMHx of Lupus since 1978 on Prednisone/plaquenil, PAD s/p right AKA 1996/s/p iliac stents (last in 2010) ?lupus nephritis, CKD (recent Cr 1.2), Anemia, lymphadenopathy (benign per records), HTN, HLD admitted with left foot cellulitis, abscess+/- osteomyelitis. -Left foot cellulitis/abscess +/- Osteomyelitis s/p left metatarsal wound incision ( with no pus), suspected abscess left medial foot, s/p left foot I&D -PAD s/p Left tibial artery atherectomy/angioplasty x 2 05/20/2018 -Lupus since 1978 on prednisone/Plaquenil -PAD s/p right AKA 1996, PCI last in 2010 -CKD (?lupus nephritis) -Anemia -Lymphadenopathy -HTN -HLD Plan: Aztreonam/vanco. Monitor vanco levels, ID input noted. s/p left food I&D 05/28. Wound care per podiatry Vascular surgery input noted, ASA/plavix BP control labetalol/nifedipine. taper xanax to off Pain control with tramadol prn d/c IVF Continue prednisone, hold plaquenil for now DVTPPX Heparin Dispo pending ID/podiatry input, SNF vs home +/- IV abx Ongoing PT eval Plan discussed with patient in detail, all questions answered.
[2018-05-29] MEDS: VANCOMYCIN 1,250 MG in DEXTROSE 5%-WATER - 250 ML IVPB SCH (12:16)
--- NOTE | 2018-05-29 13:04 | PN ---
Progress Note, Physician History of Present Illness: patient stable no new issues pain better - Current Medication List Current Medications: Active Medications Acetaminophen (Tylenol -) 650 mg PO Q4H PRN PRN Reason: PAIN LEVEL 1-5 Last Admin: 05/29/18 06:17 Dose: 650 mg Al Hydroxide/Mg Hydroxide (Mylanta Oral Suspension -) 30 ml PO Q6H PRN PRN Reason: DYSPEPSIA Alprazolam (Xanax -) 0.25 mg PO DAILY PRN PRN Reason: ANXIETY Last Admin: 05/28/18 21:49 Dose: 0.25 mg Aspirin (Asa -) 81 mg PO DAILY [facility] Last Admin: 05/29/18 09:07 Dose: 81 mg Gabapentin (Neurontin -) 600 mg PO TID [facility] Last Admin: 05/29/18 06:17 Dose: 600 mg Heparin Sodium (Porcine) (Heparin -) 5,000 unit SQ TID [facility] Aztreonam 1 gm/ Dextrose 50 mls @ 100 mls/hr IVPB Q8H-IV [facility]; Protocol Last Admin: 05/29/18 09:07 Dose: 100 mls/hr Vancomycin HCl 1,250 mg/ (Dextrose) 250 mls @ 250 mls/2 hr IVPB Q24H [facility]; Protocol Last Admin: 05/29/18 12:16 Dose: 250 mls/2 hr Labetalol HCl (Normodyne -) 200 mg PO BID [facility] Last Admin: 05/29/18 09:07 Dose: 200 mg Nifedipine (Procardia Xl -) 60 mg PO BID [facility] Last Admin: 05/29/18 09:07 Dose: 60 mg Pantoprazole Sodium (Protonix -) 40 mg PO DAILY [facility] Last Admin: 05/29/18 09:07 Dose: 40 mg Prednisone (Deltasone -) 5 mg PO DAILY [facility] Last Admin: 05/29/18 09:07 Dose: 5 mg Tramadol HCl (Ultram -) 50 mg PO Q6H PRN PRN Reason: PAIN LEVEL 6-10 Last Admin: 05/29/18 09:03 Dose: 50 mg - Objective Vital Signs: Vital Signs Temperature 98.2 F 05/29/18 09:00 Pulse Rate 80 05/29/18 09:00 Respiratory Rate 20 05/29/18 09:00 Blood Pressure 160/76 05/29/18 09:00 O2 Sat by Pulse Oximetry (%) 98 05/28/18 21:00 Constitutional: Yes: No Distress, Calm Cardiovascular: Yes: Regular Rate and Rhythm Respiratory: Yes: Regular, CTA Bilaterally Gastrointestinal: Yes: Normal Bowel Sounds, Soft Musculoskeletal: Yes: WNL Extremities: Yes: Other Neurological: Yes: Alert, Oriented Psychiatric: Yes: Alert, Oriented Labs: CBC, BMP 05/29/18 06:10 05/28/18 06:30 INR, PTT INR 1.22 (0.83-1.09) H 05/28/18 06:30 Assessment/Plan Problem List - Problems (1) Left foot infection Code(s): L08.9 - LOCAL INFECTION OF THE SKIN AND SUBCUTANEOUS TISSUE, UNSP (2) Amputated right leg Code(s): Z89.611 - ACQUIRED ABSENCE OF RIGHT LEG ABOVE KNEE (3) Anemia Code(s): D64.9 - ANEMIA, UNSPECIFIED Qualifiers: Anemia type: unspecified type Qualified Code(s): D64.9 - Anemia, unspecified (4) HTN (hypertension) Code(s): I10 - ESSENTIAL (PRIMARY) HYPERTENSION (5) Hx of AKA (above knee amputation) Code(s): Z89.619 - ACQUIRED ABSENCE OF UNSPECIFIED LEG ABOVE KNEE (6) Hydronephrosis Code(s): N13.30 - UNSPECIFIED HYDRONEPHROSIS (7) Lupus (systemic lupus erythematosus) Code(s): M32.9 - SYSTEMIC LUPUS ERYTHEMATOSUS, UNSPECIFIED (8) Ureteral obstruction, right Code(s): N13.5 - CROSSING VESSEL AND STRICTURE OF URETER W/O HYDRONEPHROSIS plan awaiting finalization of cx wound care rest as per the team
[2018-05-29] MEDS: HEPARIN NA (PORCINE) 5,000 UNITS/ML 1ML VIAL SQ SCH ×2 (14:32→21:20)
[2018-05-29] MEDS: ALPRAZolam 0.25 MG TABLET PO PRN (21:20)
[2018-05-30] MEDS: AZTREONAM 1 GM in DEXTROSE 5%-WATER - 50 ML IVPB SCH ×3 (01:06→17:34)
[2018-05-30] MEDS: ACETAMINOPHEN 325 MG TABLET (FP) PO PRN ×2 (01:13→14:04)
[2018-05-30] MEDS: HEPARIN NA (PORCINE) 5,000 UNITS/ML 1ML VIAL SQ SCH ×3 (06:19→21:33)
[2018-05-30] MEDS: GABAPENTIN 300 MG CAPSULE (FP) PO SCH ×3 (06:20→21:31)
[2018-05-30] MEDS: NIFEdipine E.R 60 MG TABLET (UD) PO SCH ×2 (09:11→21:36)
[2018-05-30] MEDS: ASPIRIN 81 MG CHEWABLE TABLETS PO SCH (09:11)
[2018-05-30] MEDS: PANTOPRAZOLE 40 MG TABLET (FP) PO SCH (09:11)
[2018-05-30] MEDS: LABETALOL HCL 200 MG TABLET (FP) PO SCH ×2 (09:11→21:33)
[2018-05-30] MEDS: ALPRAZolam 0.25 MG TABLET PO PRN (09:11)
[2018-05-30] MEDS: predniSONE 5 MG TABLET (UD) PO SCH (09:11)
[2018-05-30] MEDS: traMADol HCL 50 MG TABLET PO PRN ×2 (09:13→21:30)
[2018-05-30 09:22] LABS: HEMATOCRIT 27.9 % (32.4-45.2); HEMOGLOBIN 8.9 GM/dL (10.7-15.3); MCH 26.2 pg (25.7-33.7); MCHC 31.7 g/dl (32.0-36.0); MEAN CELL VOLUME 82.5 fl (80-96); MEAN PLT VOLUME 7.9 fl (7.5-11.1); PLATELET COUNT 575 K/MM3 (134-434); RBC 3.39 M/mm3 (3.60-5.2); RDW 17.9 % (11.6-15.6); WHITE BLOOD COUNT 7.8 K/mm3 (4.0-10.0)
[2018-05-30 09:58] LABS: ANION GAP 10 MMOL/L (8-16); BLOOD UREA NITROGEN 17 mg/dL (7-18); CALCIUM 8.8 mg/dL (8.5-10.1); CHLORIDE 108 mmol/L (98-107); CO2 23 mmol/L (21-32); CREATININE 1.1 mg/dL (0.55-1.3); GLUCOSE,RANDOM 154 mg/dL (74-106); POTASSIUM 4.2 mmol/L (3.5-5.1); SODIUM 142 mmol/L (136-145)
[2018-05-30] MEDS: VANCOMYCIN 1,250 MG in DEXTROSE 5%-WATER - 250 ML IVPB SCH (11:43)
--- NOTE | 2018-05-30 13:05 | PN ---
Physical Exam: SUBJECTIVE: Patient seen and examined, left foot pain well controlled with tramadol, no new complaints. OBJECTIVE: Vital Signs Period Temp Pulse Resp BP Sys/Hidalgo Pulse Ox Last 24 Hr 98 F-98.9 F 75-84 20-20 130-155/56-81 96-98 GENERAL: The patient is awake, alert, and fully oriented, in no acute distress. HEAD: Normal with no signs of trauma. EYES: PERRL, extraocular movements intact, sclera anicteric, conjunctiva clear. No ptosis. ENT: Ears normal, nares patent, oropharynx clear without exudates, moist mucous membranes. NECK: Trachea midline, full range of motion, supple. LUNGS: Breath sounds equal, clear to auscultation bilaterally, no wheezes, no crackles, no accessory muscle use. HEART: Regular rate and rhythm, S1, S2 ABDOMEN: Soft, nontender, nondistended, normoactive bowel sounds, no guarding, no rebound, EXTREMITIES: left foot dressing, no surrounding swelling, almost resolved erythema lower 1/3rd leg, further exam defered PSYCH: Normal mood, normal affect. SKIN: Warm, dry, normal turgor, no rashes or lesions noted Laboratory Results - last 24 hr 05/30/18 05/30/18 07:45 07:45 WBC 7.8 RBC 3.39 L Hgb 8.9 L Hct 27.9 L MCV 82.5 MCH 26.2 MCHC 31.7 L RDW 17.9 H Plt Count 575 H MPV 7.9 Sodium 142 Potassium 4.2 Chloride 108 H Carbon Dioxide 23 Anion Gap 10 BUN 17 Creatinine 1.1 Creat Clearance w eGFR 48.82 Random Glucose 154 H Calcium 8.8 Active Medications Generic Name Dose Route Start Last Admin Trade Name Freq PRN Reason Stop Dose Admin Acetaminophen 650 mg 05/28/18 13:40 05/30/18 01:13 Tylenol - PO 650 mg Q4H PRN Administration PAIN LEVEL 1-5 Al Hydroxide/Mg Hydroxide 30 ml 05/28/18 13:40 Mylanta Oral Suspension - PO Q6H PRN DYSPEPSIA Alprazolam 0.25 mg 05/28/18 13:40 05/30/18 09:11 Xanax - PO 0.25 mg DAILY PRN Administration ANXIETY Aspirin 81 mg 05/29/18 10:00 05/30/18 09:11 Asa - PO 81 mg DAILY [facility] Administration Gabapentin 600 mg 05/28/18 14:00 05/30/18 06:20 Neurontin - PO 600 mg TID [facility] Administration Heparin Sodium (Porcine) 5,000 unit 05/29/18 14:00 05/30/18 06:19 Heparin - SQ 5,000 unit TID [facility] Administration Aztreonam 1 gm/ Dextrose 50 mls @ 100 mls/hr 05/28/18 18:00 05/30/18 09:11 IVPB 100 mls/hr Q8H-IV [facility] Administration Protocol Vancomycin HCl 1,250 mg/ 250 mls @ 250 mls/2 hr 05/29/18 12:00 05/30/18 11:43 Dextrose IVPB 250 mls/2 hr Q24H [facility] Administration Protocol Labetalol HCl 200 mg 05/28/18 22:00 05/30/18 09:11 Normodyne - PO 200 mg BID [facility] Administration Nifedipine 60 mg 05/28/18 22:00 05/30/18 09:11 Procardia Xl - PO 60 mg BID [facility] Administration Pantoprazole Sodium 40 mg 05/29/18 10:00 05/30/18 09:11 Protonix - PO 40 mg DAILY [facility] Administration Prednisone 5 mg 05/29/18 10:00 05/30/18 09:11 Deltasone - PO 5 mg DAILY [facility] Administration Tramadol HCl 50 mg 05/28/18 13:40 05/30/18 09:13 Ultram - PO 50 mg Q6H PRN Administration PAIN LEVEL 6-10 Microbiology 05/28/18 13:30 Foot - Left Gram Stain - Final 05/28/18 13:30 Foot - Left Wound Culture - Preliminary 05/28/18 13:30 Foot - Left Gram Stain - Final 05/28/18 13:30 Foot - Left Wound Culture - Final NO GROWTH OF AEROBIC ORGANISMS AFTER 48 HOURS INCUBATION 05/26/18 14:15 Foot - Left Gram Stain - Final 05/26/18 14:15 Foot - Left Wound Culture - Final NO GROWTH OF AEROBIC ORGANISMS AFTER 48 HOURS INCUBATION 05/17/18 13:37 Blood - Peripheral Venous Blood Culture - Final NO GROWTH AFTER 5 DAYS INCUBATION 05/17/18 13:37 Blood - Peripheral Venous Blood Culture - Final NO GROWTH AFTER 5 DAYS INCUBATION ASSESSMENT/PLAN: 72 yof with PMHx of Lupus since 1978 on Prednisone/plaquenil, PAD s/p right AKA 1996/s/p iliac stents (last in 2010) ?lupus nephritis, CKD (recent Cr 1.2), Anemia, lymphadenopathy (benign per records), HTN, HLD admitted with left foot cellulitis, abscess+/- osteomyelitis. -Left foot cellulitis/abscess +/- Osteomyelitis s/p left metatarsal wound incision ( with no pus), suspected abscess left medial foot, s/p left foot I&D -PAD s/p Left tibial artery atherectomy/angioplasty x 2 05/20/2018 -Lupus since 1978 on prednisone/Plaquenil -PAD s/p right AKA 1996, PCI last in 2010 -CKD (?lupus nephritis) -Anemia -Lymphadenopathy -HTN -HLD Plan: Aztreonam/vanco. Monitor vanco levels, ID input noted. s/p left food I&D 05/28. Wound care per podiatry Vascular surgery input noted, ASA/plavix BP control labetalol/nifedipine. taper xanax to off Pain control with tramadol prn Continue prednisone, hold plaquenil for now DVTPPX Heparin Dispo pending ID/podiatry input, SNF vs home +/- IV abx in 2-3 days Ongoing PT Plan discussed with patient and nursing in detail, all questions answered. Visit type - Emergency Visit Emergency Visit: Yes ED Registration Date: 05/17/18 Care time: The patient presented to the Emergency Department on the above date and was hospitalized for further evaluation of their emergent condition. - New Patient This patient is new to me today: No - Critical Care Critical Care patient: No - Discharge Referral Referred to [facility] Med P.C.: No
[2018-05-30] MEDS: PHENYLEPH/MINERAL OIL/PETROLAT 28 GM OINTMENT RC SCH ×2 (14:04→21:52)
--- NOTE | 2018-05-30 15:32 | PN ---
Progress Note, Physician History of Present Illness: Pt seen and examined, events noted. She c/o pain in Lt foot. Remains afebrile, without other complaints. - Current Medication List Current Medications: Active Medications Acetaminophen (Tylenol -) 650 mg PO Q4H PRN PRN Reason: PAIN LEVEL 1-5 Last Admin: 05/30/18 14:04 Dose: 650 mg Al Hydroxide/Mg Hydroxide (Mylanta Oral Suspension -) 30 ml PO Q6H PRN PRN Reason: DYSPEPSIA Alprazolam (Xanax -) 0.25 mg PO DAILY PRN PRN Reason: ANXIETY Last Admin: 05/30/18 09:11 Dose: 0.25 mg Aspirin (Asa -) 81 mg PO DAILY [facility] Last Admin: 05/30/18 09:11 Dose: 81 mg Gabapentin (Neurontin -) 600 mg PO TID [facility] [place] Last Admin: 05/30/18 14:03 Dose: 600 mg Heparin Sodium (Porcine) (Heparin -) 5,000 unit SQ TID [facility] [place] Last Admin: 05/30/18 14:03 Dose: 5,000 unit Aztreonam 1 gm/ Dextrose 50 mls @ 100 mls/hr IVPB Q8H-IV [facility]; Protocol Last Admin: 05/30/18 09:11 Dose: 100 mls/hr Vancomycin HCl 1,250 mg/ (Dextrose) 250 mls @ 250 mls/2 hr IVPB Q24H [facility] [place]; Protocol Last Admin: 05/30/18 11:43 Dose: 250 mls/2 hr Labetalol HCl (Normodyne -) 200 mg PO BID [facility] [place] Last Admin: 05/30/18 09:11 Dose: 200 mg Nifedipine (Procardia Xl -) 60 mg PO BID [facility] [place] Last Admin: 05/30/18 09:11 Dose: 60 mg Pantoprazole Sodium (Protonix -) 40 mg PO DAILY [facility] [place] Last Admin: 05/30/18 09:11 Dose: 40 mg Prednisone (Deltasone -) 5 mg PO DAILY [facility] [place] Last Admin: 05/30/18 09:11 Dose: 5 mg Tramadol HCl (Ultram -) 50 mg PO Q6H PRN PRN Reason: PAIN LEVEL 6-10 Last Admin: 05/30/18 09:13 Dose: 50 mg - Objective Vital Signs: Vital Signs Temperature 98.1 F 05/30/18 14:27 Pulse Rate 80 05/30/18 14:27 Respiratory Rate 20 05/30/18 10:00 Blood Pressure 120/67 05/30/18 14:27 O2 Sat by Pulse Oximetry (%) 96 05/30/18 08:50 Constitutional: Yes: No Distress Eyes: Yes: Conjunctiva Clear Cardiovascular: Yes: Regular Rate and Rhythm Respiratory: Yes: Regular Gastrointestinal: Yes: Normal Bowel Sounds, Soft Extremities: Yes: Amputation (RT AKA) Wound/Incision: Yes: Dressing Dry and Intact, Other (Lt foot with mild edema/no purulence, +tenderness) Neurological: Yes: Alert Labs: CBC, BMP 05/30/18 07:45 05/30/18 07:45 INR, PTT INR 1.22 (0.83-1.09) H 05/28/18 06:30 Microbiology 05/28/18 13:30 Foot - Left Gram Stain - Final 05/28/18 13:30 Foot - Left Wound Culture - Preliminary 05/28/18 13:30 Foot - Left Gram Stain - Final 05/28/18 13:30 Foot - Left Wound Culture - Final NO GROWTH OF AEROBIC ORGANISMS AFTER 48 HOURS INCUBATION 05/26/18 14:15 Foot - Left Gram Stain - Final 05/26/18 14:15 Foot - Left Wound Culture - Final NO GROWTH OF AEROBIC ORGANISMS AFTER 48 HOURS INCUBATION 05/17/18 13:37 Blood - Peripheral Venous Blood Culture - Final NO GROWTH AFTER 5 DAYS INCUBATION 05/17/18 13:37 Blood - Peripheral Venous Blood Culture - Final NO GROWTH AFTER 5 DAYS INCUBATION - ....Imaging X-ray: Report Reviewed Cat Scan: Report Reviewed Other: Report Reviewed (Bone Scan) Problem List - Problems (1) Left foot infection Code(s): L08.9 - LOCAL INFECTION OF THE SKIN AND SUBCUTANEOUS TISSUE, UNSP (2) Amputated right leg Code(s): Z89.611 - ACQUIRED ABSENCE OF RIGHT LEG ABOVE KNEE (3) Anemia Code(s): D64.9 - ANEMIA, UNSPECIFIED Qualifiers: Anemia type: unspecified type Qualified Code(s): D64.9 - Anemia, unspecified (4) HTN (hypertension) Code(s): I10 - ESSENTIAL (PRIMARY) HYPERTENSION (5) Hx of AKA (above knee amputation) Code(s): Z89.619 - ACQUIRED ABSENCE OF UNSPECIFIED LEG ABOVE KNEE Qualifiers: Laterality: right Qualified Code(s): Z89.611 - Acquired absence of right leg above knee (6) Hydronephrosis Code(s): N13.30 - UNSPECIFIED HYDRONEPHROSIS (7) Lupus (systemic lupus erythematosus) Code(s): M32.9 - SYSTEMIC LUPUS ERYTHEMATOSUS, UNSPECIFIED (8) Ureteral obstruction, right Code(s): N13.5 - CROSSING VESSEL AND STRICTURE OF URETER W/O HYDRONEPHROSIS Assessment/Plan Lt foot cellulitis/Abscess s/p I+D, Possible OM PAD, Hx of Rt AKA Lupus Anemia HTN HLD -- Bone Scan/CT inconclusive for OM -- Cultures no growth so far -- continue IV antibiotics for now, monitor for improvement of edema leukocytosis resolved, afebrile Will d/w PMD
[2018-05-30] MEDS ORDERED: PT OWN MED DRAWER 7, Y5N ONE (21:35)
--- NOTE | 2018-05-30 21:45 | PN ---
Progress Note (short form) - Note Progress Note: pod#2. Patient has pain. Patients visiting her. +dry clean dressing left foot, wbc=7.8, normal post op Packing pulled. Betadine dressing change. NO WEIGHT BEARING LEFT FOOT. Re- emphasized to patient need to not bare weight on left foot. present throughout. Maybe DC if WBC remains normal from Podiatry standpoint. Rest of care as per rest of team.
[2018-05-31] MEDS: AZTREONAM 1 GM in DEXTROSE 5%-WATER - 50 ML IVPB SCH ×3 (02:47→17:50)
[2018-05-31] MEDS: PHENYLEPH/MINERAL OIL/PETROLAT 28 GM OINTMENT RC SCH ×3 (06:30→21:54)
[2018-05-31] MEDS: HEPARIN NA (PORCINE) 5,000 UNITS/ML 1ML VIAL SQ SCH ×3 (06:32→21:56)
[2018-05-31] MEDS: GABAPENTIN 300 MG CAPSULE (FP) PO SCH ×3 (06:32→21:56)
[2018-05-31] MEDS ORDERED: PT OWN MED DRAWER 7, Y5N ONE ×2 (09:30→21:17)
[2018-05-31] MEDS: ASPIRIN 81 MG CHEWABLE TABLETS PO SCH (10:09)
[2018-05-31] MEDS: LABETALOL HCL 200 MG TABLET (FP) PO SCH ×2 (10:09→21:56)
[2018-05-31] MEDS: PANTOPRAZOLE 40 MG TABLET (FP) PO SCH (10:09)
[2018-05-31] MEDS: predniSONE 5 MG TABLET (UD) PO SCH (10:09)
[2018-05-31] MEDS: NIFEdipine E.R 60 MG TABLET (UD) PO SCH ×2 (10:11→21:56)
[2018-05-31] MEDS: ACETAMINOPHEN 325 MG TABLET (FP) PO PRN (10:29)
--- NOTE | 2018-05-31 11:44 | PN ---
Physical Exam: SUBJECTIVE: Patient seen and examined, no new complaints. OBJECTIVE: Vital Signs Period Temp Pulse Resp BP Sys/Hidalgo Pulse Ox Last 24 Hr 98.1 F-98.4 F 70-82 20-20 120-142/56-67 97 GENERAL: The patient is awake, alert, and fully oriented, in no acute distress. HEAD: Normal with no signs of trauma. EYES: PERRL, extraocular movements intact, sclera anicteric, conjunctiva clear. No ptosis. ENT: Ears normal, nares patent, oropharynx clear without exudates, moist mucous membranes. NECK: Trachea midline, full range of motion, supple. LUNGS: Breath sounds equal, clear to auscultation bilaterally, no wheezes, no crackles, no accessory muscle use. HEART: Regular rate and rhythm, S1, S2 ABDOMEN: Soft, nontender, nondistended, normoactive bowel sounds, no guarding, no rebound, EXTREMITIES: left foot dressing, no surrounding swelling, almost resolved erythema lower 1/3rd leg, further exam deferred, Right AKA PSYCH: Normal mood, normal affect. SKIN: Warm, dry, normal turgor, no rashes or lesions noted Active Medications Generic Name Dose Route Start Last Admin Trade Name Freq PRN Reason Stop Dose Admin Acetaminophen 650 mg 05/28/18 13:40 05/31/18 10:29 Tylenol - PO 650 mg Q4H PRN Administration PAIN LEVEL 1-5 Al Hydroxide/Mg Hydroxide 30 ml 05/28/18 13:40 Mylanta Oral Suspension - PO Q6H PRN DYSPEPSIA Alprazolam 0.25 mg 05/28/18 13:40 05/30/18 09:11 Xanax - PO 0.25 mg DAILY PRN Administration ANXIETY Aspirin 81 mg 05/29/18 10:00 05/31/18 10:09 Asa - PO 81 mg DAILY [facility] Administration Gabapentin 600 mg 05/28/18 14:00 05/31/18 06:32 Neurontin - PO 600 mg TID [facility] Administration Heparin Sodium (Porcine) 5,000 unit 05/29/18 14:00 05/31/18 06:32 Heparin - SQ 5,000 unit TID [facility] Administration Aztreonam 1 gm/ Dextrose 50 mls @ 100 mls/hr 05/28/18 18:00 05/31/18 10:10 IVPB 100 mls/hr Q8H-IV [facility] Administration Protocol Vancomycin HCl 1,250 mg/ 250 mls @ 250 mls/2 hr 05/29/18 12:00 05/30/18 11:43 Dextrose IVPB 250 mls/2 hr Q24H [facility] Administration Protocol Labetalol HCl 200 mg 05/28/18 22:00 05/31/18 10:09 Normodyne - PO 200 mg BID [facility] Administration Nifedipine 60 mg 05/28/18 22:00 05/31/18 10:11 Procardia Xl - PO 60 mg BID [facility] Administration Pantoprazole Sodium 40 mg 05/29/18 10:00 05/31/18 10:09 Protonix - PO 40 mg DAILY [facility] Administration Prednisone 5 mg 05/29/18 10:00 05/31/18 10:09 Deltasone - PO 5 mg DAILY [facility] Administration Tramadol HCl 50 mg 05/28/18 13:40 05/30/18 21:30 Ultram - PO 50 mg Q6H PRN Administration PAIN LEVEL 6-10 ASSESSMENT/PLAN: 72 yof with PMHx of Lupus since 1978 on Prednisone/plaquenil, PAD s/p right AKA 1996/s/p iliac stents (last in 2010) ?lupus nephritis, CKD (recent Cr 1.2), Anemia, lymphadenopathy (benign per records), HTN, HLD admitted with left foot cellulitis, abscess+/- osteomyelitis. -Left foot cellulitis/abscess +/- Osteomyelitis s/p left metatarsal wound incision ( with no pus), suspected abscess left medial foot, s/p left foot I&D -PAD s/p Left tibial artery atherectomy/angioplasty x 2 05/20/2018 -Lupus since 1978 on prednisone/Plaquenil -PAD s/p right AKA 1996, PCI last in 2010 -CKD (?lupus nephritis) -Anemia -Lymphadenopathy -HTN -HLD Plan: Aztreonam/vanco. Monitor vanco levels, ID input noted. s/p left food I&D 05/28. Wound care per podiatry Vascular surgery input noted, ASA/plavix BP control labetalol/nifedipine. taper xanax to off Pain control with tramadol prn Continue prednisone, hold plaquenil for now DVTPPX Heparin Dispo pending ID input on abx in 1-2 days, SNF vs home +/- IV abx in 2-3 days Ongoing PT Plan discussed with patient and nursing in detail, all questions answered. Visit type - Emergency Visit Emergency Visit: Yes ED Registration Date: 05/17/18 Care time: The patient presented to the Emergency Department on the above date and was hospitalized for further evaluation of their emergent condition. - New Patient This patient is new to me today: No - Critical Care Critical Care patient: No - Discharge Referral Referred to [facility] Med P.C.: No
[2018-05-31] MEDS: VANCOMYCIN 1,250 MG in DEXTROSE 5%-WATER - 250 ML IVPB SCH (12:10)
--- NOTE | 2018-05-31 13:11 | PN ---
Progress Note (short form) - Note Progress Note: pod #3 Patient states pain has improved. Patients family visiting her. +dry clean dressing left foot,no growth wound cultures, +granulating wounds x2 left foot, -drainage, -cellulitis normal post op Betadine dressing change. Continue non weight bearing left. will follow till dc.
--- NOTE | 2018-05-31 14:39 | PN ---
Progress Note, Physician History of Present Illness: Pt remains afebrile, no new complaints. - Current Medication List Current Medications: Active Medications Acetaminophen (Tylenol -) 650 mg PO Q4H PRN PRN Reason: PAIN LEVEL 1-5 Last Admin: 05/31/18 10:29 Dose: 650 mg Al Hydroxide/Mg Hydroxide (Mylanta Oral Suspension -) 30 ml PO Q6H PRN PRN Reason: DYSPEPSIA Alprazolam (Xanax -) 0.25 mg PO DAILY PRN PRN Reason: ANXIETY Last Admin: 05/30/18 09:11 Dose: 0.25 mg Aspirin (Asa -) 81 mg PO DAILY [facility] Last Admin: 05/31/18 10:09 Dose: 81 mg Gabapentin (Neurontin -) 600 mg PO TID [facility] Last Admin: 05/31/18 14:22 Dose: 600 mg Heparin Sodium (Porcine) (Heparin -) 5,000 unit SQ TID [facility] Last Admin: 05/31/18 14:22 Dose: 5,000 unit Aztreonam 1 gm/ Dextrose 50 mls @ 100 mls/hr IVPB Q8H-IV [facility]; Protocol Last Admin: 05/31/18 10:10 Dose: 100 mls/hr Vancomycin HCl 1,250 mg/ (Dextrose) 250 mls @ 250 mls/2 hr IVPB Q24H [facility]; Protocol Last Admin: 05/31/18 12:10 Dose: 250 mls/2 hr Labetalol HCl (Normodyne -) 200 mg PO BID [facility] Last Admin: 05/31/18 10:09 Dose: 200 mg Nifedipine (Procardia Xl -) 60 mg PO BID [facility] Last Admin: 05/31/18 10:11 Dose: 60 mg Pantoprazole Sodium (Protonix -) 40 mg PO DAILY [facility] Last Admin: 05/31/18 10:09 Dose: 40 mg Prednisone (Deltasone -) 5 mg PO DAILY [facility] Last Admin: 05/31/18 10:09 Dose: 5 mg Tramadol HCl (Ultram -) 50 mg PO Q6H PRN PRN Reason: PAIN LEVEL 6-10 Last Admin: 05/30/18 21:30 Dose: 50 mg - Objective Vital Signs: Vital Signs Temperature 98.1 F 05/31/18 06:36 Pulse Rate 82 05/31/18 06:36 Respiratory Rate 20 05/31/18 06:36 Blood Pressure 142/60 05/31/18 06:36 O2 Sat by Pulse Oximetry (%) 97 05/30/18 20:48 Constitutional: Yes: No Distress Cardiovascular: Yes: Regular Rate and Rhythm Respiratory: Yes: Regular Gastrointestinal: Yes: Normal Bowel Sounds, Soft Wound/Incision: Yes: Other (Rt foot wound without purulence/malodor) Neurological: Yes: Alert Labs: CBC, BMP 05/30/18 07:45 05/30/18 07:45 INR, PTT INR 1.22 (0.83-1.09) H 05/28/18 06:30 Microbiology 05/28/18 13:30 Foot - Left Gram Stain - Final 05/28/18 13:30 Foot - Left Wound Culture - Final 05/28/18 13:30 Foot - Left Gram Stain - Final 05/28/18 13:30 Foot - Left Wound Culture - Final NO GROWTH OF AEROBIC ORGANISMS AFTER 48 HOURS INCUBATION 05/26/18 14:15 Foot - Left Gram Stain - Final 05/26/18 14:15 Foot - Left Wound Culture - Final NO GROWTH OF AEROBIC ORGANISMS AFTER 48 HOURS INCUBATION 05/17/18 13:37 Blood - Peripheral Venous Blood Culture - Final NO GROWTH AFTER 5 DAYS INCUBATION 05/17/18 13:37 Blood - Peripheral Venous Blood Culture - Final NO GROWTH AFTER 5 DAYS INCUBATION Problem List - Problems (1) Left foot infection Code(s): L08.9 - LOCAL INFECTION OF THE SKIN AND SUBCUTANEOUS TISSUE, UNSP (2) Amputated right leg Code(s): Z89.611 - ACQUIRED ABSENCE OF RIGHT LEG ABOVE KNEE (3) Anemia Code(s): D64.9 - ANEMIA, UNSPECIFIED Qualifiers: Anemia type: unspecified type Qualified Code(s): D64.9 - Anemia, unspecified (4) HTN (hypertension) Code(s): I10 - ESSENTIAL (PRIMARY) HYPERTENSION (5) Hx of AKA (above knee amputation) Code(s): Z89.619 - ACQUIRED ABSENCE OF UNSPECIFIED LEG ABOVE KNEE Qualifiers: Laterality: right Qualified Code(s): Z89.611 - Acquired absence of right leg above knee (6) Hydronephrosis Code(s): N13.30 - UNSPECIFIED HYDRONEPHROSIS (7) Lupus (systemic lupus erythematosus) Code(s): M32.9 - SYSTEMIC LUPUS ERYTHEMATOSUS, UNSPECIFIED (8) Ureteral obstruction, right Code(s): N13.5 - CROSSING VESSEL AND STRICTURE OF URETER W/O HYDRONEPHROSIS Assessment/Plan Lt foot cellulitis/Abscess s/p I+D, Possible OM PAD, Hx of Rt AKA Lupus Anemia HTN HLD -- Bone Scan/CT inconclusive for OM -- Cultures no growth so far -- Pt now s/p 2 wks of antibiotics, will discontinue -- Needs outpatient followup with Podiatry -- As d/w patient if wound does not continue to heal or worsens may require prolonged course of IV antibiotics. To seeks medical attention if develops worsening pain/fever Above d/w Dr. Dale
[2018-06-01] MEDS: traMADol HCL 50 MG TABLET PO PRN ×2 (01:01→09:48)
[2018-06-01] MEDS: AZTREONAM 1 GM in DEXTROSE 5%-WATER - 50 ML IVPB SCH ×2 (02:04→09:29)
[2018-06-01] MEDS: PHENYLEPH/MINERAL OIL/PETROLAT 28 GM OINTMENT RC SCH ×3 (06:41→22:10)
[2018-06-01] MEDS: HEPARIN NA (PORCINE) 5,000 UNITS/ML 1ML VIAL SQ SCH ×3 (06:42→22:10)
[2018-06-01] MEDS: GABAPENTIN 300 MG CAPSULE (FP) PO SCH ×3 (06:42→22:10)
[2018-06-01 07:31] LABS: EOS % 6.8 % (0-4.5); HEMATOCRIT 27.7 % (32.4-45.2); HEMOGLOBIN 9.1 GM/dL (10.7-15.3); LYMPH % 27.8 % (8-40); MCH 27.3 pg (25.7-33.7); MEAN CELL VOLUME 82.9 fl (80-96); MEAN PLT VOLUME 8.1 fl (7.5-11.1); MONO % 9.8 % (3.8-10.2); NEUT % 54.6 % (42.8-82.8); PLATELET COUNT 596 K/MM3 (134-434); RBC 3.34 M/mm3 (3.60-5.2); RDW 17.9 % (11.6-15.6); WHITE BLOOD COUNT 10.1 K/mm3 (4.0-10.0)
[2018-06-01 07:44] LABS: ANION GAP 8 MMOL/L (8-16); BLOOD UREA NITROGEN 20 mg/dL (7-18); CALCIUM 9.1 mg/dL (8.5-10.1); CHLORIDE 107 mmol/L (98-107); CO2 25 mmol/L (21-32); CREATININE 1.1 mg/dL (0.55-1.3); GLUCOSE,RANDOM 88 mg/dL (74-106); SODIUM 141 mmol/L (136-145)
[2018-06-01] MEDS: LABETALOL HCL 200 MG TABLET (FP) PO SCH ×2 (09:29→22:10)
[2018-06-01] MEDS: PANTOPRAZOLE 40 MG TABLET (FP) PO SCH (09:29)
[2018-06-01] MEDS: ASPIRIN 81 MG CHEWABLE TABLETS PO SCH (09:29)
[2018-06-01] MEDS: predniSONE 5 MG TABLET (UD) PO SCH (09:29)
[2018-06-01] MEDS: NIFEdipine E.R 60 MG TABLET (UD) PO SCH ×2 (09:29→22:11)
--- NOTE | 2018-06-01 12:10 | DS ---
Physical Exam: SUBJECTIVE: Patient seen and examined by me at bedside No acute events overnight Still reports pain and tenderness in her left leg Otherwise, patient denies any fever, nausea, vomiting, abdominal pain, chest pain, palpitations, shortness of breath, headaches, loss of consciousness. OBJECTIVE: Vital Signs Period Temp Pulse Resp BP Sys/Hidalgo Pulse Ox Last 24 Hr 98.0 F-98.7 F 65-79 20-20 119-156/54-65 97-97 PHYSICAL EXAM GENERAL: The patient is awake, alert, and fully oriented, in no acute distress. EYES: Sclera anicteric, conjunctiva clear. No ptosis. ENT: Oropharynx clear without exudates, moist mucous membranes. LUNGS: Breath sounds equal, clear to auscultation bilaterally, no wheezes, no crackles, no accessory muscle use. HEART: Regular rate and rhythm, Normal S1 and S2 without murmur, rub or gallop. ABDOMEN: Soft, nontender, nondistended, normoactive bowel sounds EXTREMITIES: (+) Improved erythema and redness of left grewal extending from above the ankle to below the knee and lateral aspect of the leg. (+) PT pulses bilaterally. Dressing of the left foot C/D/I. Laboratory Results - last 24 hr 06/01/18 06/01/18 06:40 06:40 WBC 10.1 H RBC 3.34 L Hgb 9.1 L Hct 27.7 L MCV 82.9 MCH 27.3 MCHC 33.0 RDW 17.9 H Plt Count 596 H MPV 8.1 Absolute Neuts (auto) 5.5 Neutrophils % 54.6 D Lymphocytes % 27.8 D Monocytes % 9.8 Eosinophils % 6.8 H Basophils % 1.0 Nucleated RBC % 0 Sodium 141 Potassium 4.0 Chloride 107 Carbon Dioxide 25 Anion Gap 8 BUN 20 H Creatinine 1.1 Creat Clearance w eGFR 48.82 Random Glucose 88 Calcium 9.1 Microbiology 05/28/18 13:30 Foot - Left Gram Stain - Final 05/28/18 13:30 Foot - Left Wound Culture - Final 05/28/18 13:30 Foot - Left Gram Stain - Final 05/28/18 13:30 Foot - Left Wound Culture - Final NO GROWTH OF AEROBIC ORGANISMS AFTER 48 HOURS INCUBATION 05/26/18 14:15 Foot - Left Gram Stain - Final 05/26/18 14:15 Foot - Left Wound Culture - Final NO GROWTH OF AEROBIC ORGANISMS AFTER 48 HOURS INCUBATION 05/17/18 13:37 Blood - Peripheral Venous Blood Culture - Final NO GROWTH AFTER 5 DAYS INCUBATION 05/17/18 13:37 Blood - Peripheral Venous Blood Culture - Final NO GROWTH AFTER 5 DAYS INCUBATION PRE-HOSPITAL COURSE: Patient is a 72 year old female with a PMHx of Lupus since 1978 (On prednisone and Plaquenil), PAD s/p right AKA with iliac stent placements, CKD, Anemia of chronic disease, HTN, HLD, who presented for left foot pain and was found to have cellulitis. Patient was admitted to med/surg for further evaluation from podiatry and vascular surgeon. HOSPITAL COURSE: Throughout hospitalization patient was started on IV Abx for left foot cellulitis and possible osteomyelitis. Patient had 2 I&D's, once by podiatry and another time by Vascular surgeon (05/20 and 05/28). Patient also had Revascularization of left tibial artery with atherectomy and angioplasty x 2 by vascular surgeon (05/20/18) and was found to have 80% stenosis distal TP trunk at bifurcation and Diffuse 70% narrowing of ARABELLA with runoff to the foot. Patient was then recommended to take mcfp Plavix and ASA. Patent continued to have worsening erythema of the left foot but was unable to have MRI due to lead in patients permanent eyeliner. Bone Scan was done and was inconclusive. Patient was on IV antibiotics for two weeks, with no negative wound and blood cultures. Patient no longer had leukocytosis and was afebrile for >72 hour . Patient was seen by Podiatry throughout hospitalization and recommended bearing no weight on left foot with daily dressing change of the foot with Betadine. Patient also recommended to follow up at wound care on (06/04/18) for further instructions. Patient also recommended to use wheel chair due to her left foot infection and right foot amputation. Patient medically cleared for discharge and will be going home with home services to follow as patient is not mobile and needs transport to help in assistance with ADL's and for spray gun striper to transfer patient. 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 You were seen by a foot doctor ([employer]) for this and completed antibiotics for the foot infection. -You were also seen by a vascular surgeon for your vessels and had a procedure done due to a blockage found in your leg. -You will need to avoid bearing weight on your left foot as instructed by your foot doctor. You will have a wheel chair ordered to avoid bearing weight on your foot. You will also need to have daily dressing changes of your left foot with betadine use. -If you experience worsening pain of your foot or excessive drainage and wound does not continue to heal or worsens, you may require prolonged course of IV antibiotics and need to return to the emergency department. FOLLOW UP: -Please follow up with your primary care physician within 1-2 weeks and to repeat labs -Please follow up with your [employer] Machine Operator (Foot doctor), Dr. Daniels, this week on (06/04/18) at the wound care clinic. Call right after discharge to make an appointment. The number is [phone]. -Please call Dr. Jay office after discharge. -All phone numbers and contact information will be in your discharge packet MEDICATIONS: -You completed your antibiotics here at the hospital and will not need it right now. -You were also recommended to take Aspirin and Plavix by the Vascular surgeon. A prescription will be sent to your pharmacy for the Plavix. You will need to pickler helper baby aspirin which is 81mg tabs and take it every day. You can get it over the counter -You may resume your Plaquenil -You may resume the rest of your home medications. Referrals: Yaya Montoya MD [Primary Care Provider] - Niki Daniels DPM [Staff Physician] - Angel Gomez MD [Staff Physician] - Disposition: VNS/HOME HEALTH CARE - Home Medications Comprehensive Discharge Medication List: Ambulatory Orders Hydroxychloroquine Sulfate [Plaquenil] 200 mg PO DAILY 10/20/15 Nifedipine [Procardia Xl] 60 mg PO BID 10/20/15 predniSONE [Deltasone -] 5 mg PO DAILY 10/20/15 Iron,Carbonyl [Feosol] 65 mg PO DAILY 11/20/15 Vitamin B Complex [B Complex # 1] 1 each PO DAILY 11/20/15 Labetalol HCl 200 mg PO BID 07/22/17 Calcium Carbonate [Calcium] 1,000 mg PO DAILY 05/17/18 Famotidine [Pepcid] 20 mg PO DAILY 05/17/18 Gabapentin [Neurontin -] 600 mg PO TID 05/17/18 Magnesium Chloride [Slow-Mag -] 64 mg PO DAILY 05/17/18 Multivit-Min36/Iron/Folic Acid [Geritol Complete Tablet] 1 each PO DAILY Aspirin [ASA -] 81 mg PO DAILY tab.chew 06/01/18 Clopidogrel Bisulfate [Plavix -] 75 mg PO DAILY #30 tablet 06/01/18 This patient is new to me today: Yes Date on this admission: 06/01/18 Emergency Visit: Yes ED Registration Date: 05/17/18 Care time: The patient presented to the Emergency Department on the above date and was hospitalized for further evaluation of their emergent condition. Critical Care patient: No - Discharge Referral Referred to [facility] Med P.C.: No
--- NOTE | 2018-06-01 12:23 | PN ---
Teaching Attending Note Name of Resident: Charlette Stewart ATTENDING PHYSICIAN STATEMENT I saw and evaluated the patient. I reviewed the resident's note and discussed the case with the resident. I agree with the resident's findings and plan as documented with exceptions below. SUBJECTIVE: Patient seen and examined. No complaints. No new fevers/chills. OBJECTIVE: Vital Signs Period Temp Pulse Resp BP Sys/Hidalgo Pulse Ox Last 24 Hr 98.0 F-98.7 F 65-79 20-20 119-156/54-65 97-97 Intake & Output 05/29/18 05/30/18 05/31/18 06/01/18 23:59 23:59 23:59 23:59 Intake Total 1555 1850 1670 100 Balance 1555 1850 1670 100 General: sitting in bed in no acute distress Chest: CTAB, no rales or wheezing Abdomen: soft, NT, ND Extremities: left foot dressing, no surrounding swelling/erythema Home Medications Medication Instructions Recorded Hydroxychloroquine Sulfate 200 mg PO DAILY 10/20/15 [Plaquenil] Nifedipine [Procardia Xl] 60 mg PO BID 10/20/15 predniSONE [Deltasone -] 5 mg PO DAILY 10/20/15 Iron,Carbonyl [Feosol] 65 mg PO DAILY 11/20/15 Vitamin B Complex [B Complex # 1] 1 each PO DAILY 11/20/15 Labetalol HCl 200 mg PO BID 07/22/17 Calcium Carbonate [Calcium] 1,000 mg PO DAILY 05/17/18 Famotidine [Pepcid] 20 mg PO DAILY 05/17/18 Gabapentin [Neurontin -] 600 mg PO TID 05/17/18 Magnesium Chloride [Slow-Mag -] 64 mg PO DAILY 05/17/18 Multivit-Min36/Iron/Folic Acid 1 each PO DAILY 05/17/18 [Geritol Complete Tablet] Aspirin [ASA -] 81 mg PO DAILY tab.chew 06/01/18 Clopidogrel Bisulfate [Plavix -] 75 mg PO DAILY #30 tablet 06/01/18 Active Medications Acetaminophen (Tylenol -) 650 mg PO Q4H PRN PRN Reason: PAIN LEVEL 1-5 Last Admin: 05/31/18 10:29 Dose: 650 mg Al Hydroxide/Mg Hydroxide (Mylanta Oral Suspension -) 30 ml PO Q6H PRN PRN Reason: DYSPEPSIA Alprazolam (Xanax -) 0.25 mg PO DAILY PRN PRN Reason: ANXIETY Last Admin: 05/30/18 09:11 Dose: 0.25 mg Aspirin (Asa -) 81 mg PO DAILY [facility] Last Admin: 06/01/18 09:29 Dose: 81 mg Gabapentin (Neurontin -) 600 mg PO TID [facility] Last Admin: 06/01/18 06:42 Dose: 600 mg Heparin Sodium (Porcine) (Heparin -) 5,000 unit SQ TID [facility] Last Admin: 06/01/18 06:42 Dose: 5,000 unit Labetalol HCl (Normodyne -) 200 mg PO BID [facility] Last Admin: 06/01/18 09:29 Dose: 200 mg Nifedipine (Procardia Xl -) 60 mg PO BID [facility] Last Admin: 06/01/18 09:29 Dose: 60 mg Pantoprazole Sodium (Protonix -) 40 mg PO DAILY [facility] Last Admin: 06/01/18 09:29 Dose: 40 mg Prednisone (Deltasone -) 5 mg PO DAILY [facility] Last Admin: 06/01/18 09:29 Dose: 5 mg Tramadol HCl (Ultram -) 50 mg PO Q6H PRN PRN Reason: PAIN LEVEL 6-10 Last Admin: 06/01/18 09:48 Dose: 50 mg Laboratory Results - last 24 hr 06/01/18 06/01/18 06:40 06:40 WBC 10.1 H RBC 3.34 L Hgb 9.1 L Hct 27.7 L MCV 82.9 MCH 27.3 MCHC 33.0 RDW 17.9 H Plt Count 596 H MPV 8.1 Absolute Neuts (auto) 5.5 Neutrophils % 54.6 D Lymphocytes % 27.8 D Monocytes % 9.8 Eosinophils % 6.8 H Basophils % 1.0 Nucleated RBC % 0 Sodium 141 Potassium 4.0 Chloride 107 Carbon Dioxide 25 Anion Gap 8 BUN 20 H Creatinine 1.1 Creat Clearance w eGFR 48.82 Random Glucose 88 Calcium 9.1 Microbiology 05/28/18 13:30 Foot - Left Gram Stain - Final 05/28/18 13:30 Foot - Left Wound Culture - Final 05/28/18 13:30 Foot - Left Gram Stain - Final 05/28/18 13:30 Foot - Left Wound Culture - Final NO GROWTH OF AEROBIC ORGANISMS AFTER 48 HOURS INCUBATION 05/26/18 14:15 Foot - Left Gram Stain - Final 05/26/18 14:15 Foot - Left Wound Culture - Final NO GROWTH OF AEROBIC ORGANISMS AFTER 48 HOURS INCUBATION 05/17/18 13:37 Blood - Peripheral Venous Blood Culture - Final NO GROWTH AFTER 5 DAYS INCUBATION 05/17/18 13:37 Blood - Peripheral Venous Blood Culture - Final NO GROWTH AFTER 5 DAYS INCUBATION ASSESSMENT AND PLAN: 72 yof with PMHx of Lupus since 1978 on Prednisone/plaquenil, PAD s/p right AKA 1996/s/p iliac stents (last in 2010) ?lupus nephritis, CKD (recent Cr 1.2), Anemia, lymphadenopathy (benign per records), HTN, HLD admitted with left foot cellulitis, abscess+/- osteomyelitis. -Left foot cellulitis/abscess +/- Osteomyelitis s/p left metatarsal wound incision ( with no pus), suspected abscess left medial foot, s/p left foot I&D -PAD s/p Left tibial artery atherectomy/angioplasty x 2 05/20/2018 -Lupus since 1978 on prednisone/Plaquenil -PAD s/p right AKA 1996, PCI last in 2010 -CKD (?lupus nephritis) -Anemia -Lymphadenopathy -HTN -HLD Plan: ID input noted. d/c abx. Podiatry input noted. NWB LLE which has been stressed with patient. Given right AKA with prosthesis, wheelchair arrangements being made. Outpatient follow up with Dr. Daniels. Vascular surgery input noted, ASA/plavix BP control labetalol/nifedipine. Xanax taper to off. Pain control with tramadol prn Continue prednisone, resume plaquenil on d/c DVTPPX Heparin Dispo d/c home with VNS/wheelchair with outpatient follow up with wound care/ Dr. Daniels, if disposition arrangements made. Plan discussed with patient and nursing in detail, all questions answered.
--- NOTE | 2018-06-01 12:49 | PN ---
Progress Note, Physician History of Present Illness: patient doing well no new issues off of abx - Current Medication List Current Medications: Active Medications Acetaminophen (Tylenol -) 650 mg PO Q4H PRN PRN Reason: PAIN LEVEL 1-5 Last Admin: 05/31/18 10:29 Dose: 650 mg Al Hydroxide/Mg Hydroxide (Mylanta Oral Suspension -) 30 ml PO Q6H PRN PRN Reason: DYSPEPSIA Alprazolam (Xanax -) 0.25 mg PO DAILY PRN PRN Reason: ANXIETY Last Admin: 05/30/18 09:11 Dose: 0.25 mg Aspirin (Asa -) 81 mg PO DAILY [facility] Last Admin: 06/01/18 09:29 Dose: 81 mg Gabapentin (Neurontin -) 600 mg PO TID [facility] Last Admin: 06/01/18 06:42 Dose: 600 mg Heparin Sodium (Porcine) (Heparin -) 5,000 unit SQ TID [facility] Last Admin: 06/01/18 06:42 Dose: 5,000 unit Labetalol HCl (Normodyne -) 200 mg PO BID [facility] Last Admin: 06/01/18 09:29 Dose: 200 mg Nifedipine (Procardia Xl -) 60 mg PO BID [facility] Last Admin: 06/01/18 09:29 Dose: 60 mg Pantoprazole Sodium (Protonix -) 40 mg PO DAILY [facility] Last Admin: 06/01/18 09:29 Dose: 40 mg Prednisone (Deltasone -) 5 mg PO DAILY [facility] Last Admin: 06/01/18 09:29 Dose: 5 mg Tramadol HCl (Ultram -) 50 mg PO Q6H PRN PRN Reason: PAIN LEVEL 6-10 Last Admin: 06/01/18 09:48 Dose: 50 mg - Objective Vital Signs: Vital Signs Temperature 98.0 F 06/01/18 08:31 Pulse Rate 76 06/01/18 08:31 Respiratory Rate 20 06/01/18 08:31 Blood Pressure 152/65 06/01/18 08:31 O2 Sat by Pulse Oximetry (%) 97 06/01/18 09:00 Constitutional: Yes: No Distress, Calm Respiratory: Yes: Regular, CTA Bilaterally Gastrointestinal: Yes: Normal Bowel Sounds, Soft Musculoskeletal: Yes: WNL Extremities: Yes: WNL Neurological: Yes: Alert, Oriented Psychiatric: Yes: Alert, Oriented Labs: CBC, BMP 06/01/18 06:40 06/01/18 06:40 INR, PTT INR 1.22 (0.83-1.09) H 05/28/18 06:30 Assessment/Plan Problem List - Problems (1) Left foot infection Code(s): L08.9 - LOCAL INFECTION OF THE SKIN AND SUBCUTANEOUS TISSUE, UNSP (2) Amputated right leg Code(s): Z89.611 - ACQUIRED ABSENCE OF RIGHT LEG ABOVE KNEE (3) Anemia Code(s): D64.9 - ANEMIA, UNSPECIFIED Qualifiers: Anemia type: unspecified type Qualified Code(s): D64.9 - Anemia, unspecified (4) HTN (hypertension) Code(s): I10 - ESSENTIAL (PRIMARY) HYPERTENSION (5) Hx of AKA (above knee amputation) Code(s): Z89.619 - ACQUIRED ABSENCE OF UNSPECIFIED LEG ABOVE KNEE (6) Hydronephrosis Code(s): N13.30 - UNSPECIFIED HYDRONEPHROSIS (7) Lupus (systemic lupus erythematosus) Code(s): M32.9 - SYSTEMIC LUPUS ERYTHEMATOSUS, UNSPECIFIED (8) Ureteral obstruction, right Code(s): N13.5 - CROSSING VESSEL AND STRICTURE OF URETER W/O HYDRONEPHROSIS plan off of all abx continue to monitor wound care rest as per the team
[2018-06-01] MEDS ORDERED: traMADol HCL 50 MG TABLET PO PRN (17:55)
--- NOTE | 2018-06-01 18:05 | PN ---
Physical Exam: SUBJECTIVE: Patient seen and examined by me at bedside No acute events overnight Still reports pain and tenderness in her left leg Otherwise, patient denies any fever, nausea, vomiting, abdominal pain, chest pain, palpitations, shortness of breath, headaches, loss of consciousness. OBJECTIVE: Vital Signs Period Temp Pulse Resp BP Sys/Hidalgo Pulse Ox Last 24 Hr 98.0 F-98.7 F 76-79 20-21 120-156/52-65 97-97 GENERAL: The patient is awake, alert, and fully oriented, in no acute distress. EYES: Sclera anicteric, conjunctiva clear. No ptosis. ENT: Oropharynx clear without exudates, moist mucous membranes. LUNGS: Breath sounds equal, clear to auscultation bilaterally, no wheezes, no crackles, no accessory muscle use. HEART: Regular rate and rhythm, Normal S1 and S2 without murmur, rub or gallop. ABDOMEN: Soft, nontender, nondistended, normoactive bowel sounds EXTREMITIES: (+) Improved erythema and redness of left grewal extending from above the ankle to below the knee and lateral aspect of the leg. (+) PT pulses bilaterally. Dressing of the left foot C/D/I. Laboratory Results - last 24 hr 06/01/18 06/01/18 06:40 06:40 WBC 10.1 H RBC 3.34 L Hgb 9.1 L Hct 27.7 L MCV 82.9 MCH 27.3 MCHC 33.0 RDW 17.9 H Plt Count 596 H MPV 8.1 Absolute Neuts (auto) 5.5 Neutrophils % 54.6 D Lymphocytes % 27.8 D Monocytes % 9.8 Eosinophils % 6.8 H Basophils % 1.0 Nucleated RBC % 0 Sodium 141 Potassium 4.0 Chloride 107 Carbon Dioxide 25 Anion Gap 8 BUN 20 H Creatinine 1.1 Creat Clearance w eGFR 48.82 Random Glucose 88 Calcium 9.1 Active Medications Generic Name Dose Route Start Last Admin Trade Name Freq PRN Reason Stop Dose Admin Acetaminophen 650 mg 05/28/18 13:40 05/31/18 10:29 Tylenol - PO 650 mg Q4H PRN Administration PAIN LEVEL 1-5 Al Hydroxide/Mg Hydroxide 30 ml 05/28/18 13:40 Mylanta Oral Suspension - PO Q6H PRN DYSPEPSIA Aspirin 81 mg 05/29/18 10:00 06/01/18 09:29 Asa - PO 81 mg DAILY [facility] Administration Gabapentin 600 mg 05/28/18 14:00 06/01/18 13:36 Neurontin - PO 600 mg TID [facility] Administration Heparin Sodium (Porcine) 5,000 unit 05/29/18 14:00 06/01/18 13:36 Heparin - SQ 5,000 unit TID [facility] Administration Labetalol HCl 200 mg 05/28/18 22:00 06/01/18 09:29 Normodyne - PO 200 mg BID [facility] Administration Nifedipine 60 mg 05/28/18 22:00 06/01/18 09:29 Procardia Xl - PO 60 mg BID [facility] Administration Pantoprazole Sodium 40 mg 05/29/18 10:00 06/01/18 09:29 Protonix - PO 40 mg DAILY [facility] Administration Prednisone 5 mg 05/29/18 10:00 06/01/18 09:29 Deltasone - PO 5 mg DAILY [facility] Administration Tramadol HCl 50 mg 06/01/18 17:55 Ultram - PO Q12H PRN PAIN LEVEL 6-10 Microbiology 05/28/18 13:30 Foot - Left Gram Stain - Final 05/28/18 13:30 Foot - Left Wound Culture - Final 05/28/18 13:30 Foot - Left Gram Stain - Final 05/28/18 13:30 Foot - Left Wound Culture - Final NO GROWTH OF AEROBIC ORGANISMS AFTER 48 HOURS INCUBATION 05/26/18 14:15 Foot - Left Gram Stain - Final 05/26/18 14:15 Foot - Left Wound Culture - Final NO GROWTH OF AEROBIC ORGANISMS AFTER 48 HOURS INCUBATION 05/17/18 13:37 Blood - Peripheral Venous Blood Culture - Final NO GROWTH AFTER 5 DAYS INCUBATION 05/17/18 13:37 Blood - Peripheral Venous Blood Culture - Final NO GROWTH AFTER 5 DAYS INCUBATION ASSESSMENT/PLAN: Patient is a 72 year old female with a PMHx of Lupus since 1978 (On prednisone and Plaquenil), PAD s/p right AKA with iliac stent placements, CKD, Anemia of chronic disease, HTN, HLD, who presented for left foot pain and was found to have cellulitis. Left Foot Cellulitis -Possibly Osteomyelitis -S/P Incision right foot wound by Dr. Gomez (05/20/18) -S/P I&D left foot POD (05/28/18) by Podiatry -Blood cultures negative -Off antibiotics -Wound cultures negative -Patient requires home services to follow as patient is not mobile and needs transport to help in assistance with ADL's and for host to transfer patient. Lupus -Currently on Prednisone and Plaquenil at home -Continue Prednisone 5mg daily -Discontinue Plaquenil for now PAD s/p Right AKA and PCI -S/P Revascularization left tibial artery with atherectomy and agioplasty and Incision right foot wound by Dr. Gomez (05/20/18). Found to have 80% stenosis distal TP trunk at bifurcation and Diffuse 70% narrowing of ARABELLA. Run off done -Pain control with Tylenol, Tramadol and Gabapentin -Continue ASA 81 mg daily and Plavix 7mg daily CKD -Possibly lupus nephritis -Kidney function stable -On no fluids -Continue to monitor BMP HTN -Continue Nifedipine 60mg BID -Continue Labetolol 200mg BID -Continue to monitor BP F/E/N -On no fluids -Electrolytes wnl -Sodium controlled diet Prophylaxis -Heparin 5000 units SQ TID for DVT -Famotidine 40mg daily for GI Disposition -Full code -Home VNS pending Charlette Stewart [id number] Visit type - Emergency Visit Emergency Visit: Yes ED Registration Date: 05/17/18 Care time: The patient presented to the Emergency Department on the above date and was hospitalized for further evaluation of their emergent condition. - New Patient This patient is new to me today: No - Critical Care Critical Care patient: No
[2018-06-01] MEDS ORDERED: PT OWN MED DRAWER 7, Y5N ONE (21:29)
[2018-06-02 03:00] VITALS: TEMP 98.1
[2018-06-02] MEDS: GABAPENTIN 300 MG CAPSULE (FP) PO SCH (06:44)
[2018-06-02] MEDS: HEPARIN NA (PORCINE) 5,000 UNITS/ML 1ML VIAL SQ SCH (06:44)
[2018-06-02 07:58] LABS: HEMATOCRIT 28.4 % (32.4-45.2); HEMOGLOBIN 9.4 GM/dL (10.7-15.3); MCH 27.3 pg (25.7-33.7); MCHC 32.9 g/dl (32.0-36.0); MEAN CELL VOLUME 82.8 fl (80-96); MEAN PLT VOLUME 8.1 fl (7.5-11.1); PLATELET COUNT 627 K/MM3 (134-434); RBC 3.43 M/mm3 (3.60-5.2); RDW 17.8 % (11.6-15.6); WHITE BLOOD COUNT 9.8 K/mm3 (4.0-10.0)
--- NOTE | 2018-06-02 09:30 | PN ---
Teaching Attending Note Name of Resident: Charlette Stewart ATTENDING PHYSICIAN STATEMENT I saw and evaluated the patient. I reviewed the resident's note and discussed the case with the resident. I agree with the resident's findings and plan as documented with exceptions below. SUBJECTIVE: Patient seen and examined. no new complaints. Working on home arrangements after d/c. Offer SNF placement again, patient adamantly declines. OBJECTIVE: Vital Signs Period Temp Pulse Resp BP Sys/Hidalgo Pulse Ox Last 24 Hr 98.1 F-98.6 F 65-76 20-21 120-156/50-60 97 Intake & Output 05/30/18 05/31/18 06/01/18 06/02/18 23:59 23:59 23:59 23:59 Intake Total 1850 1670 900 Balance 1850 1670 900 General: sitting in bed in no acute distress Chest: CTAB, no rales or wheezing Abdomen:Soft, NT Extremities: left foot dressing Home Medications Medication Instructions Recorded Hydroxychloroquine Sulfate 200 mg PO DAILY 10/20/15 [Plaquenil] Nifedipine [Procardia Xl] 60 mg PO BID 10/20/15 predniSONE [Deltasone -] 5 mg PO DAILY 10/20/15 Iron,Carbonyl [Feosol] 65 mg PO DAILY 11/20/15 Vitamin B Complex [B Complex # 1] 1 each PO DAILY 11/20/15 Labetalol HCl 200 mg PO BID 07/22/17 Calcium Carbonate [Calcium] 1,000 mg PO DAILY 05/17/18 Famotidine [Pepcid] 20 mg PO DAILY 05/17/18 Gabapentin [Neurontin -] 600 mg PO TID 05/17/18 Magnesium Chloride [Slow-Mag -] 64 mg PO DAILY 05/17/18 Multivit-Min36/Iron/Folic Acid 1 each PO DAILY 05/17/18 [Geritol Complete Tablet] Aspirin [ASA -] 81 mg PO DAILY tab.chew 06/01/18 Clopidogrel Bisulfate [Plavix -] 75 mg PO DAILY #30 tablet 06/01/18 Laboratory Results - last 24 hr 06/02/18 06:45 WBC 9.8 RBC 3.43 L Hgb 9.4 L Hct 28.4 L MCV 82.8 MCH 27.3 MCHC 32.9 RDW 17.8 H Plt Count 627 H MPV 8.1 Microbiology 05/28/18 13:30 Foot - Left Gram Stain - Final 05/28/18 13:30 Foot - Left Wound Culture - Final 05/28/18 13:30 Foot - Left Gram Stain - Final 05/28/18 13:30 Foot - Left Wound Culture - Final NO GROWTH OF AEROBIC ORGANISMS AFTER 48 HOURS INCUBATION 05/26/18 14:15 Foot - Left Gram Stain - Final 05/26/18 14:15 Foot - Left Wound Culture - Final NO GROWTH OF AEROBIC ORGANISMS AFTER 48 HOURS INCUBATION 05/17/18 13:37 Blood - Peripheral Venous Blood Culture - Final NO GROWTH AFTER 5 DAYS INCUBATION 05/17/18 13:37 Blood - Peripheral Venous Blood Culture - Final NO GROWTH AFTER 5 DAYS INCUBATION ASSESSMENT AND PLAN: 72 yof with PMHx of Lupus since 1978 on Prednisone/plaquenil, PAD s/p right AKA 1996/s/p iliac stents (last in 2010) ?lupus nephritis, CKD (recent Cr 1.2), Anemia, lymphadenopathy (benign per records), HTN, HLD admitted with left foot cellulitis, abscess+/- osteomyelitis. -Left foot cellulitis/abscess +/- Osteomyelitis s/p left metatarsal wound incision ( with no pus), suspected abscess left medial foot, s/p left foot I&D -PAD s/p Left tibial artery atherectomy/angioplasty x 2 05/20/2018 -Lupus since 1978 on prednisone/Plaquenil -PAD s/p right AKA 1996, PCI last in 2010 -CKD (?lupus nephritis) -Anemia -Lymphadenopathy -HTN -HLD Plan: Doing well, no new concerns. off abx ID/podiatry input noted. patient adamantly declines SNF/NH placement Home VNS arranged, Resume all home medications. D/c home today with outpatient podiatry/vascular/wound care follow up. Plan discussed with patient in detail, all questions answered.
[2018-06-02] MEDS ORDERED: PT OWN MED DRAWER 7, Y5N ONE (09:32)
[2018-06-02] MEDS: LABETALOL HCL 200 MG TABLET (FP) PO SCH (09:54)
[2018-06-02] MEDS: predniSONE 5 MG TABLET (UD) PO SCH (09:54)
[2018-06-02] MEDS: PANTOPRAZOLE 40 MG TABLET (FP) PO SCH (09:54)
[2018-06-02] MEDS: ASPIRIN 81 MG CHEWABLE TABLETS PO SCH (09:54)
[2018-06-02] MEDS: NIFEdipine E.R 60 MG TABLET (UD) PO SCH (09:55)
[2018-06-02 10:49] VITALS: BP 145/84; PULSE 77
== END 2018-06-02 10:53 | disposition home health service (06) | DRG 271 ==
LOC: JER 09:37 → JERBED 13:21 → J6S 17:13
PROVIDERS: ADMIT Hospitalist; ATTEND Hospitalist
PROC: 04CQ3ZZ Extirpation of Matter from Left Anterior Tibial Artery, Percutaneous Approach (ICD-10-PCS; principal; 2018-05-19 15:00)
PROC: 047Q3ZZ Dilation of Left Anterior Tibial Artery, Percutaneous Approach (ICD-10-PCS; 2018-05-19 15:00)
PROC: 0J9R0ZZ Drainage of Left Foot Subcutaneous Tissue and Fascia, Open Approach (ICD-10-PCS; 2018-05-28)
DX: E11.51 Type 2 diabetes mellitus with diabetic peripheral angiopathy without gangrene (principal); L03.116 Cellulitis of left lower limb; L02.612 Cutaneous abscess of left foot; M86.9 Osteomyelitis, unspecified; Z89.611 Acquired absence of right leg above knee; M32.9 Systemic lupus erythematosus, unspecified; E11.22 Type 2 diabetes mellitus with diabetic chronic kidney disease; E11.59 Type 2 diabetes mellitus with other circulatory complications; I70.245 Atherosclerosis of native arteries of left leg with ulceration of other part of foot; E11.69 Type 2 diabetes mellitus with other specified complication; M32.14 Glomerular disease in systemic lupus erythematosus; E78.5 Hyperlipidemia, unspecified; R59.1 Generalized enlarged lymph nodes; D64.9 Anemia, unspecified; I12.9 Hypertensive chronic kidney disease with stage 1 through stage 4 chronic kidney disease, or unspecified chronic kidney disease; N18.9 Chronic kidney disease, unspecified; E87.6 Hypokalemia; E83.39 Other disorders of phosphorus metabolism; K21.9 Gastro-esophageal reflux disease without esophagitis
CPT/HCPCS: 36415; 73630-TC-LT; 73700-TC-RT; 78315-TC; 80048; 80053; 83735; 84100; 84550; 85025; 85027; 85610; 85651; 85730; 86140; 86850; 86900; 86901; 87040; 87070; 87205; 93005; 93010; 94760; 97116-GP; 97162-GP; 99284-25; A9503; G0480; J0131; J1644; J7030

== ENCOUNTER 2018-06-22 10:26 | Emergency (ER) | payer BC ==
[2018-06-22 10:41] VITALS: BP 152/72; PULSE 74; TEMP 98.7; BMI 27.2
--- NOTE | 2018-06-22 11:44 | PDOC ---
History of Present Illness - General Chief Complaint: Rash Stated Complaint: RASH ON BOTH LEGS Time Seen by Provider: 06/22/18 11:17 History Source: Patient Exam Limitations: No Limitations - History of Present Illness Initial Comments: 06/22/18 11:39 Patient states was discharged from hospital recently where she had been admitted for 3 weeks for IV antibiotics for severe cellulitis of her right foot. Patient suffers from severe lupus and has peripheral vascular disease with significant stasis ulcers and cellulitis problems. 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 States rash occurred in her upper right and left leg posthospitalization, is erythema and itchy. Has used topical creams but no other lotions or medications. Timing/Duration: reports: getting worse Severity: Yes: moderate Location: reports: extremities Associated Symptoms: reports: change in skin texture. denies: fever, flushing, headache Past History - Travel Traveled outside of the country in the last 30 days: No Close contact w/someone who was outside of country & ill: No - Past Medical History Allergies/Adverse Reactions: Allergies Allergy/AdvReac Type Severity Reaction Status Date / Time codeine [Codeine] Allergy Hives Verified 06/04/18 10:02 Penicillins Allergy Hives Verified 06/04/18 10:02 lactose AdvReac Verified 06/04/18 10:02 ranitidine [From Zantac] AdvReac headache Verified 06/04/18 10:02 Home Medications: Ambulatory Orders Hydroxychloroquine Sulfate [Plaquenil] 200 mg PO DAILY 10/20/15 Nifedipine [Procardia Xl] 60 mg PO BID 10/20/15 predniSONE [Deltasone -] 5 mg PO DAILY 10/20/15 Iron,Carbonyl [Feosol] 65 mg PO DAILY 11/20/15 Vitamin B Complex [B Complex # 1] 1 each PO DAILY 11/20/15 Labetalol HCl 200 mg PO BID 07/22/17 Calcium Carbonate [Calcium] 1,000 mg PO DAILY 05/17/18 Famotidine [Pepcid] 20 mg PO DAILY 05/17/18 Gabapentin [Neurontin -] 600 mg PO TID 05/17/18 Magnesium Chloride [Slow-Mag -] 64 mg PO DAILY 05/17/18 Multivit-Min36/Iron/Folic Acid [Geritol Complete Tablet] 1 each PO DAILY Aspirin [ASA -] 81 mg PO DAILY tab.chew 06/01/18 Clopidogrel Bisulfate [Plavix -] 75 mg PO DAILY #30 tablet 06/01/18 Tramadol HCl [Ultram] 50 mg PO DAILY #14 tablet MDD 1 06/04/18 Collagenase Clostridium Hist. [Santyl] 90 gm TP DAILY #90 oint...g. 06/11/18 Fluconazole [Diflucan] 150 mg PO ONCE #1 tablet 06/22/18 Anemia: Yes (chronic) Asthma: No Cancer: No Cardiac Disorders: Yes (Leg stents, CAD,) CVA: No COPD: No CHF: No DVT: Yes (by history) Dementia: No Diabetes: No Dialysis: No GI Disorders: Yes (GERD) Disorders: No HTN: Yes Hypercholesterolemia: Yes Kidney Stones: Yes Liver Disease: No Psychiatric Problems: No Seizures: No Thyroid Disease: No - Surgical History Abdominal Surgery: Yes (10/2015 mass removed-negative) Appendectomy: No Cardiac Surgery: Yes (STENTS OCTOBER 2010 IN LEFT LEG) Cholecystectomy: No Lung Surgery: No Neurologic Surgery: No Orthopedic Surgery: Yes ([place] BUENROSTRO (1996)) - Immunization History Immunization Up to Date: Yes - Suicide/Smoking/Psychosocial Hx Smoking Status: No Smoking History: Never smoked Have you smoked in the past 12 months: No Number of Cigarettes Smoked Daily: 0 If you are a former smoker, when did you quit?: 1979 Information on smoking cessation initiated: No Hx Alcohol Use: No Drug/Substance Use Hx: No Substance Use Type: None Hx Substance Use Treatment: No Review of Systems - Review of Systems Able to Perform ROS?: Yes Is the patient limited Lebanese proficient: Yes Constitutional: Yes: Symptoms Reported, See HPI, Malaise. No: Fever HEENTM: Yes: See HPI. No: Symptoms Reported Respiratory: Yes: See HPI All Other Systems: Reviewed and Negative *Physical Exam - Vital Signs Last Vital Signs Temp Pulse Resp BP Pulse Ox 98.7 F 74 16 152/72 99 06/22/18 10:38 06/22/18 10:38 06/22/18 10:38 06/22/18 10:38 06/22/18 10:38 - Physical Exam General Appearance: Yes: Appropriately Dressed, Apparent Distress, Mild Distress HEENT: positive: W[place], Normal ENT Inspection, Normal Voice, TMs Normal, Pharynx Normal Neck: positive: Supple. 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 due to long-term antibiotic therapy and steroid use,Treat with 1 dose Diflucan *DC/Admit/Observation/Transfer Diagnosis at time of Disposition: Candidiasis - Discharge Dispostion Disposition: HOME Condition at time of disposition: Stable Decision to Admit order: No - Referrals Referrals: Yaya Montoya MD [Primary Care Provider] - - Patient Instructions Printed Discharge Instructions: Yeast Infection-Skin Additional Instructions: Rest, keep cool and dry- avoid strenuous activity or hot /humid environments Less hot showers, no abrasive soaps May use heavy creams like Eucerin or Cetaphil to keep skin moist May apply Aveeno, calamine lotion, [id number] hydrocortisone creams as needed for symptoms May use Benadryl at night for antihistamine, Zyrtec/ Nita or Claritin for daytime antihistamine use to help with itching May use [id number]-urdptof hydrocortisone cream on all areas except face Try to identify cause for rash and avoid exposures Followup with PMD in one week if no resolution Diflucan 150MG milligrams X 1 DOSE Make appointment with break and load operator for evaluation when possible - Post Discharge Activity
== END 2018-06-22 12:03 | disposition home or self-care (01) ==
LOC: JERFT 10:26
DX: B37.2 Candidiasis of skin and nail (principal); Z79.52 Long term (current) use of systemic steroids; Z79.2 Long term (current) use of antibiotics; I25.10 Atherosclerotic heart disease of native coronary artery without angina pectoris; I10 Essential (primary) hypertension; K21.9 Gastro-esophageal reflux disease without esophagitis; D64.9 Anemia, unspecified; Z86.718 Personal history of other venous thrombosis and embolism; Z79.01 Long term (current) use of anticoagulants; I73.9 Peripheral vascular disease, unspecified; M32.9 Systemic lupus erythematosus, unspecified; Z89.511 Acquired absence of right leg below knee; Z88.8 Allergy status to other drugs, medicaments and biological substances
CPT/HCPCS: 99281-25

== ENCOUNTER 2018-07-17 13:26 | Inpatient (IN) | payer BC ==
--- NOTE | 2018-07-17 13:32 | PDOC ---
Rapid Medical Evaluation Time Seen by Provider: 07/17/18 13:28 Medical Evaluation: Allergies Allergy/AdvReac Type Severity Reaction Status Date / Time codeine [Codeine] Allergy Hives Verified 06/04/18 10:02 Penicillins Allergy Hives Verified 06/04/18 10:02 lactose AdvReac Verified 06/04/18 10:02 ranitidine [From Zantac] AdvReac headache Verified 06/04/18 10:02 07/17/18 13:29 I have performed a brief in-person evaluation of this patient. The patient presents with a chief complaint of: sent by Dr Daniels from wound center for L foot infection, fever, nausea, vomiting on PO bactrim now Pertinent physical exam findings: NAD I have ordered the following: CBC, CMP, Blood Cx lactate 07/17/18 13:31 Discharge Disposition - Diagnosis Vomiting - Referrals - Patient Instructions - Post Discharge Activity
--- NOTE | 2018-07-17 15:08 | PDOC ---
History of Present Illness - General Chief Complaint: SIRS, Suspected/Possible Stated Complaint: SENT BY PCP Time Seen by Provider: 07/17/18 13:28 History Source: Patient, Old Records Exam Limitations: No Limitations - History of Present Illness Initial Comments: HPI: 73 y/o female presenting to [facility] ER on referral from Dr. Blackman for chronic wound to left foot. Pt was evaluated in clinic on Friday and started on PO Bactrim. She took the first dose of Bactrim yesterday and subsequently developed nausea/vomiting, diarrhea, fever, and chills. Woke up this morning and continued to experience general malaise with nausea. Measured oral temperature of 103 at 11:30. Took two Tylenol. Pt has been admitted to this facility twice in 2019 for infection to the left foot. Underwent a revascularization left tibial artery with atherectomy and angioplasty x [address] Wills on 19 May 2018. Also underwent multiple surgical I&D by Dr. Blackman. Wounds are believed to be secondary to Lupus. PCP: Dr. Montoya Medical Hx: - Lupus, managed with 5mg Prednisone and 200mg Plaquenil - s/p right AKA - s/p right urethral stenting - HTN - HLD Past History - Past Medical History Allergies/Adverse Reactions: Allergies Allergy/AdvReac Type Severity Reaction Status Date / Time codeine [Codeine] Allergy Hives Verified 07/17/18 13:29 Penicillins Allergy Hives Verified 07/17/18 13:29 lactose AdvReac Verified 07/17/18 13:29 ranitidine [From Zantac] AdvReac headache Verified 07/17/18 13:29 Home Medications: Ambulatory Orders Hydroxychloroquine Sulfate [Plaquenil] 200 mg PO DAILY 10/20/15 Nifedipine [Procardia Xl] 60 mg PO BID 10/20/15 predniSONE [Deltasone -] 5 mg PO DAILY 10/20/15 Iron,Carbonyl [Feosol] 65 mg PO DAILY 11/20/15 Vitamin B Complex [B Complex # 1] 1 each PO DAILY 11/20/15 Labetalol HCl 200 mg PO BID 07/22/17 Calcium Carbonate [Calcium] 1,000 mg PO DAILY 05/17/18 Famotidine [Pepcid] 20 mg PO DAILY 05/17/18 Gabapentin [Neurontin -] 600 mg PO TID 05/17/18 Magnesium Chloride [Slow-Mag -] 64 mg PO DAILY 05/17/18 Multivit-Min36/Iron/Folic Acid [Geritol Complete Tablet] 1 each PO DAILY Aspirin [ASA -] 81 mg PO DAILY tab.chew 06/01/18 Tramadol HCl [Ultram] 50 mg PO DAILY #14 tablet MDD 1 06/04/18 Anemia: Yes (chronic) Asthma: No Cancer: No Cardiac Disorders: Yes (Leg stents, CAD,) CVA: No COPD: No CHF: No DVT: Yes (by history) Dementia: No Diabetes: No Dialysis: No GI Disorders: Yes (GERD) Disorders: No HTN: Yes Hypercholesterolemia: Yes Kidney Stones: Yes Liver Disease: No Psychiatric Problems: No Seizures: No Thyroid Disease: No - Surgical History Abdominal Surgery: Yes (10/2015 mass removed-negative) Appendectomy: No Cardiac Surgery: Yes (STENTS OCTOBER 2010 IN LEFT LEG) Cholecystectomy: No Lung Surgery: No Neurologic Surgery: No Orthopedic Surgery: Yes ([place] BUENROSTRO (1996)) - Immunization History Immunization Up to Date: Yes - Suicide/Smoking/Psychosocial Hx Smoking Status: No Smoking History: Never smoked Have you smoked in the past 12 months: No Number of Cigarettes Smoked Daily: 0 If you are a former smoker, when did you quit?: 1979 Hx Alcohol Use: No Drug/Substance Use Hx: No Substance Use Type: None Hx Substance Use Treatment: No Review of Systems - Review of Systems Able to Perform ROS?: Yes Comments:: In addition to that documented in the HPI above, the additional ROS was obtained : Constitutional: Endorses fevers and chills Head: Denies vision changes ENMT: Denies sore throat CV: Denies chest pain Resp: Denies SOB GI: Endorses vomiting and diarrhea. Denies abdominal pain. : Denies painful urination MSK: Denies recent trauma Skin: Denies new rashes Neuro: Denies new numbness or tingling or weakness Endocrine: Denies polyuria Heme: Denies bleeding or bruising *Physical Exam - Vital Signs Last Vital Signs Temp Pulse Resp BP Pulse Ox 99.8 F H 92 H 18 142/76 100 07/17/18 13:29 07/17/18 13:29 07/17/18 13:29 07/17/18 13:29 07/17/18 13:29 - Physical Exam Comments: Constitutional: Well-developed, well-nourished adult female in no acute distress or obvious discomfort. Found semi-fowlers on hospital bed. Alert and oriented x4. Answered all questions appropriately and completely. Speech was non -labored, non-pressured. Head: Normocephalic. No obvious external signs of trauma. Eyes: Sclerae white. Ears: Hearing grossly intact. Nose: No nasal discharge. Neck: Supple, trachea is midline. Cardiovascular / Chest: Regular rate and regular rhythm. No murmur, rubs, clicks, or gallops. Peripheral pulses: radial pulses full. Respiratory: Breathing unlabored. Equal chest rise and fall. Clear to auscultation bilaterally. No stridor, no wheezing, no rhonchi. Gastrointestinal: abdomen is soft, non-tender, non-distended. Neuro: Alert and oriented. Moving all four extremities spontaneously. MSK/Skin: Prosthesis on right lower extremity. Warmth and mild erythema overlying dorsal and plantar surfaces of left foot. Two small areas of skin breakdown without purulence or drainage. 2+ dorsalis pedis pulse. Psych: Affect: appropriate. Mood: normal. Moderate Sedation - Procedure Monitoring Vital Signs: Procedure Monitoring Vital Signs Temperature 99.8 F H 07/17/18 13:29 Pulse Rate 92 H 07/17/18 13:29 Respiratory Rate 18 07/17/18 13:29 Blood Pressure 142/76 07/17/18 13:29 O2 Sat by Pulse Oximetry (%) 100 07/17/18 13:29 ED Treatment Course - LABORATORY CBC & Chemistry Diagram: 07/17/18 15:20 07/17/18 15:20 *DC/Admit/Observation/Transfer Diagnosis at time of Disposition: Left foot infection Vomiting Qualifiers: Vomiting type: unspecified Vomiting Intractability: non-intractable Nausea presence: with nausea Qualified Code(s): R11.2 - Nausea with vomiting, unspecified - Discharge Dispostion Condition at time of disposition: Stable Decision to Admit order: Yes - Referrals - Patient Instructions - Post Discharge Activity
[2018-07-17] MEDS ORDERED: VANCOMYCIN 1,000 MG in DEXTROSE 5%-WATER - 250 ML IVPB ONE (15:16)
[2018-07-17] MEDS ORDERED: AZTREONAM 2 GM in DEXTROSE 5%-WATER 100 ML IVPB ONE (15:16)
[2018-07-17] MEDS ORDERED: ACETAMINOPHEN 325 MG TABLET (FP) PO ONE (15:17)
--- NOTE | 2018-07-17 15:23 | PDOC ---
Attending Attestation - Resident Resident Name: Tyler Ceja - ED Attending Attestation I have performed the following: I have examined & evaluated the patient, The case was reviewed & discussed with the resident, I agree w/resident's findings & plan - HPI HPI: 07/17/18 15:25 The patient is a 73 year old female with a significant past medical history of of anemia, lupus (s/p R BKA), CAD, GERD, DM, and nephrolithiasis (s/p stent), left foot osteo/wound infections who presents to the emergency Department from Dr. Welsh office with L foot wound infection. The patient states she saw her PCP, Dr. Daniels on Friday for wound cultures and was started on PO bactrim yesterday and has taken x 1 day. As per patient, shortly after taking her bactrim she developed continued fever, nausea, vomiting, and diarrhea. Tmax 103.7 this morning, took tylenol at 11am. The patient states she was admitted and discharged from [facility] recently (05/19/18 - 06/01/18 ) where she had been admitted for 3 weeks for severe cellulitis and possible osteomyelitis of her left foot, s/p I&D by podiatry and vascular surgery, IV abx aztreonam and vancomycin.. Patient notes she had a fever of 103.7 at home. Denies chills, chest pain, SOB, palpitation, dizziness, weakness, N, V, abdominal pain, bladder and bowel problems. No sick contacts or travel. No new changes in medications. Allergies: Codeine, Penicillin, lactose, ranitidine Past Medical History: of anemia, lupus (s/p R BKA), CAD, GERD, DM, and nephrolithiasis (s/p stent) Social history: Lives with family. No smoking. No alcohol. No illicit drugs. Surgical history: Abdominal surgery (10/2015 mass removed-negative), STENTS ( OCTOBER 2010 IN LEFT LEG), R BKA (1996) PCP: Dr. Montoya Podiatry: Dr Daniels Vascular: Dr Stoner - Physicial Exam PE: 07/17/18 15:17 Agree with the resident's HPI and PE as documented in the electronic medical record. NAD, well appearing, PERRL, EOMI, MMM, nl conjunctiva, anicteric; neck supple. lungs clear, RRR, abdomen soft nontender. (+) prosthesis, right lower extremity BKA. (+) Hallux amputation of L great toe. (+) dorsal plantar L foot is warm to palpation, no active drainage. No gross open wounds. (+) 2 small skin breaks. No peripheral edema. normal color for ethnicity, WWP. 2+ DP pulse to LLE. - Medical Decision Making 07/17/18 15:25 I, Norma Lizarraga MD, attest that this document has been prepared under my direction and personally reviewed by me in its entirety. I further attest, that it accurately reflects all work, treatment, procedures and medical decision -making performed by me. See HPI for details DDx. osteomyelitis, abscess, cellulitis, acute on chronic wound infection. Vital signs reviewed, +low grade fever. s/p tylenol earlier today. Prior notes reviewed, including admissions, discharges and consultations. laboratory results and imaging reviewed, basic labs and lytes wnl, notable for elevated inflammatory markers, changed from prior. +leukocytosis 16K. blood cultures ordered and pending. EKG normal sinus rhythm, no interval abnormalities, narrow QRS, ST and T wave segments and morphology normal. Nonspecific T wave abnormalities Xray Left ankle with calcaneal spurring and tach Hinojosa and no signs of swelling or soft tissue air. There is degenerative bone disease there is also other arthritic changes to the tarsal bones and markedly angulated with flexed toes and arthritic changes and bunion formation at the first MTP joint. No acute fractures. No other lytic changes or blastic changes noted. With concern for also myelitis patient will most likely need an MRI or bone scan to further elucidate. In the meantime is covered with IV antibiotics appropriately based on prior ID evaluation will keep her coverage broadened. ED course - no open wounds, no cultures to be obtained. IV abx aztreonam and vancomycin per prior administration. prior cultures from 2017- neg - blood and wound admit for cellulitis vs osteomyelitis, vasc/podiatry cs and eval. admit to hospitalist sservice. 07/17/18 18:24 07/17/18 18:25 <Norma Lizarraag - Last Filed: 07/17/18 18:25> Heart Score/ECG Review #1 ECG reviewed & interpreted by me at: 15:40 General ECG Interpretation: Sinus Rhythm Compared to previous ECG there are: No significant change 07/17/18 15:52 EKG normal sinus rhythm at 90 bpm, no interval abnormalities, narrow QRS, ST and T wave segments and morphology normal. Nonspecific T wave abnormalities <Norma Lizarraga - Last Filed: 07/17/18 18:25> Attestations - Attestations 07/17/18 15:31 Documentation prepared by Lul Rosa, acting as medical device assembler for Norma Lizarraga MD, <Lul Rosa - Last Filed: 07/17/18 15:31>
[2018-07-17] MEDS ORDERED: ACETAMINOPHEN 325 MG TABLET (FP) ONE (15:33)
[2018-07-17] MEDS ORDERED: VANCOMYCIN 1 GRAM (PRE-DOCKED) 1,000 MG/250 ML BAG IVPB ONE (15:34)
[2018-07-17 15:42] LABS: VENOUS PC02 46.6 mmHg (41-51); VENOUS PH 7.38 (7.31-7.41)
[2018-07-17 15:59] LABS: INR 1.22 (0.83-1.09); PROTHROMBIN TIME (PATIENT) 14.4 SEC (9.7-13.0)
[2018-07-17 16:02] LABS: ACTIVATED PTT 26.2 SECONDS (25.2-36.5)
[2018-07-17 16:03] LABS: ALBUMIN 3.2 g/dl (3.4-5.0); ALK PHOS 114 U/L (45-117); ANION GAP 8 MMOL/L (8-16); BILIRUBIN,TOTAL 0.3 mg/dL (0.2-1); BLOOD UREA NITROGEN 14 mg/dL (7-18); CALCIUM 9.4 mg/dL (8.5-10.1); CHLORIDE 101 mmol/L (98-107); CO2 27 mmol/L (21-32); CREATININE 1.4 mg/dL (0.55-1.3); GLUCOSE,RANDOM 95 mg/dL (74-106); POTASSIUM 3.9 mmol/L (3.5-5.1); SGOT/AST 49 U/L (15-37); SGPT/ALT 54 U/L (13-61); SODIUM 135 mmol/L (136-145); TOT PROT 8.1 g/dl (6.4-8.2)
[2018-07-17 17:03] LABS: BASO % 0.4 % (0-2.0); EOS % 1.8 % (0-4.5); HEMATOCRIT 31.3 % (32.4-45.2); HEMOGLOBIN 10.3 GM/dL (10.7-15.3); LYMPH % 11.5 % (8-40); MCH 26.2 pg (25.7-33.7); MCHC 32.8 g/dl (32.0-36.0); MEAN CELL VOLUME 79.9 fl (80-96); MEAN PLT VOLUME 8.5 fl (7.5-11.1); MONO % 8.4 % (3.8-10.2); NEUT % 77.9 % (42.8-82.8); PLATELET COUNT 407 K/MM3 (134-434); RBC 3.92 M/mm3 (3.60-5.2); RDW 17.1 % (11.6-15.6); WHITE BLOOD COUNT 16.1 K/mm3 (4.0-10.0)
[2018-07-17] MEDS ORDERED: ACETAMINOPHEN 325 MG TABLET (FP) PO PRN (17:46)
--- NOTE | 2018-07-17 17:52 | HP ---
Admitting History and Physical - Primary Care Physician PCP: Yaya Montoya - Admission Chief Complaint: I felt sick History of Present Illness: Ms Trent is a very pleasant 73 year old female who comes in with an infected foot wound. She has history of ischemic foot wound and is being followed by podiatry. On Friday it was noted to be more red and painful. She was placed on bactrim but when she took it she became itchy with nausea and vomiting. She was unable to tolerate more than 1 dose. After this she noted worsening pain and redness in her foot. She also had fevers as well. She called her bottom precipitator operator and was instructed to come in for further evaluation. Aside from this she is doing well. She denies lightheadedness, dizziness, passing out, chest pain or pressure, shortness of breath, current nausea or vomiting, diarrhea, constipation, difficulty or pain on urination, or swelling. She says she currently feels ok. History Source: Patient Limitations to Obtaining History: No Limitations - Past Medical History Cardiovascular: Yes: CAD Gastrointestinal: Yes: GERD Renal/: Yes: Other (renal obstruction s/p stents) Rheumatology: Yes: Lupus, Vasculitis (chronic), Other (Bachets disease) Endocrine: Yes: Diabetes Mellitus - Past Surgical History Past Surgical History: Yes: Amputation (R AKA) - Smoking History Smoking history: Never smoked Have you smoked in the past 12 months: No Aproximately how many cigarettes per day: 0 If you are a former smoker, when did you quit?: 1979 - Alcohol/Substance Use Hx Alcohol Use: No - Social History ADL: Independent History of Recent Travel: No Home Medications - Allergies Allergies/Adverse Reactions: Allergies Allergy/AdvReac Type Severity Reaction Status Date / Time codeine [Codeine] Allergy Hives Verified 07/17/18 13:29 Penicillins Allergy Hives Verified 07/17/18 13:29 lactose AdvReac Verified 07/17/18 13:29 ranitidine [From Zantac] AdvReac headache Verified 07/17/18 13:29 - Home Medications Home Medications: Ambulatory Orders Hydroxychloroquine Sulfate [Plaquenil] 200 mg PO DAILY 10/20/15 Nifedipine [Procardia Xl] 60 mg PO BID 10/20/15 predniSONE [Deltasone -] 5 mg PO DAILY 10/20/15 Iron,Carbonyl [Feosol] 65 mg PO DAILY 11/20/15 Vitamin B Complex [B Complex # 1] 1 each PO DAILY 11/20/15 Labetalol HCl 200 mg PO BID 07/22/17 Calcium Carbonate [Calcium] 1,000 mg PO DAILY 05/17/18 Famotidine [Pepcid] 20 mg PO DAILY 05/17/18 Gabapentin [Neurontin -] 600 mg PO TID 05/17/18 Magnesium Chloride [Slow-Mag -] 64 mg PO DAILY 05/17/18 Multivit-Min36/Iron/Folic Acid [Geritol Complete Tablet] 1 each PO DAILY Aspirin [ASA -] 81 mg PO DAILY tab.chew 06/01/18 Tramadol HCl [Ultram] 50 mg PO DAILY #14 tablet MDD 1 06/04/18 Family Disease History - Family Disease History Family Disease History: Other: Brother (dementia) Review of Systems Findings/Remarks: Full review of systems obtained, as per HPI and otherwise negative Physical Examination Vital Signs: Vital Signs Temperature 37.2 C 07/17/18 17:22 Pulse Rate 84 07/17/18 17:22 Respiratory Rate 17 07/17/18 17:22 Blood Pressure 148/84 07/17/18 17:22 O2 Sat by Pulse Oximetry (%) 98 07/17/18 17:22 Constitutional: Yes: Well Nourished, No Distress, Calm Eyes: Yes: Conjunctiva Clear, EOM Intact, PERRL HENT: Yes: Atraumatic, Normocephalic Cardiovascular: Yes: Regular Rate and Rhythm. No: Gallop, Murmur, Rub Respiratory: Yes: Regular, CTA Bilaterally. No: Rales, Rhonchi, Wheezes Gastrointestinal: Yes: Normal Bowel Sounds, Soft. No: Distention, Tenderness Extremities: Yes: Erythema (LLE) Labs: CBC, BMP 07/17/18 15:20 07/17/18 15:20 Imaging - Results Chest X-ray: Report Reviewed, Image Reviewed X-ray: Report Reviewed Problem List - Problems (1) Osteomyelitis Assessment/Plan: -concern for osteomyelitis -admit to med surg -consult podiatry and ID -start on vancomycin and aztreonam -monitor for improvement Code(s): M86.9 - OSTEOMYELITIS, UNSPECIFIED Qualifiers: Osteomyelitis type: acute hematogenous Osteomyelitis location: foot Laterality: left Qualified Code(s): M86.072 - Acute hematogenous osteomyelitis , left ankle and foot (2) Amputated right leg Assessment/Plan: -noted Code(s): Z89.611 - ACQUIRED ABSENCE OF RIGHT LEG ABOVE KNEE (3) Chronic renal disease, stage 3, moderately decreased glomerular filtration rate (GFR) between 30-59 mL/min/1.73 square meter Assessment/Plan: -close to baseline -monitor -encourage fluid intake Code(s): N18.3 - CHRONIC KIDNEY DISEASE, STAGE 3 (MODERATE) (4) HTN (hypertension) Assessment/Plan: -continue labetalol and procardia Code(s): I10 - ESSENTIAL (PRIMARY) HYPERTENSION (5) Lupus (systemic lupus erythematosus) Assessment/Plan: -will hold plaquenal in active infection -continue prednisone Code(s): M32.9 - SYSTEMIC LUPUS ERYTHEMATOSUS, UNSPECIFIED (6) PVD (peripheral vascular disease) Assessment/Plan: -plavix stopped per patient -continue aspirin -consult Dr Gomez Code(s): I73.9 - PERIPHERAL VASCULAR DISEASE, UNSPECIFIED
[2018-07-17] MEDS ORDERED: PT OWN MED DRAWER 7, Y5N ONE (23:25)
[2018-07-17] MEDS: LABETALOL HCL 200 MG TABLET (FP) PO SCH (23:38)
[2018-07-17] MEDS: AZTREONAM 2 GM in DEXTROSE 5%-WATER 100 ML IVPB SCH (23:38)
[2018-07-17] MEDS: GABAPENTIN 300 MG CAPSULE (FP) PO SCH (23:38)
[2018-07-17] MEDS: HEPARIN NA (PORCINE) 5,000 UNITS/ML 1ML VIAL SQ SCH (23:38)
[2018-07-17] MEDS: NIFEdipine E.R 60 MG TABLET (UD) PO SCH (23:39)
[2018-07-18] MEDS ORDERED: AZTREONAM 2 GM in DEXTROSE 5%-WATER 100 ML IVPB SCH
[2018-07-18] MEDS: traMADol HCL 50 MG TABLET PO PRN ×2 (00:41→09:18)
[2018-07-18] MEDS ORDERED: ONDANSETRON 4 MG/2 ML VIAL IVPUSH ONE (01:14)
[2018-07-18] MEDS ORDERED: VANCOMYCIN 1 GM in D5W (PRE-DOCKED) 1,000 MG/250 ML IVPB ONE (05:00)
[2018-07-18] MEDS: HEPARIN NA (PORCINE) 5,000 UNITS/ML 1ML VIAL SQ SCH ×3 (05:41→21:36)
[2018-07-18] MEDS: GABAPENTIN 300 MG CAPSULE (FP) PO SCH ×3 (05:42→21:35)
[2018-07-18 07:29] LABS: BASO % 0.9 % (0-2.0); EOS % 3.7 % (0-4.5); HEMATOCRIT 28.5 % (32.4-45.2); HEMOGLOBIN 9.5 GM/dL (10.7-15.3); MCH 26.5 pg (25.7-33.7); MCHC 33.2 g/dl (32.0-36.0); MEAN CELL VOLUME 79.9 fl (80-96); MEAN PLT VOLUME 8.3 fl (7.5-11.1); MONO % 7.7 % (3.8-10.2); NEUT % 76.7 % (42.8-82.8); PLATELET COUNT 369 K/MM3 (134-434); RBC 3.57 M/mm3 (3.60-5.2); WHITE BLOOD COUNT 10.8 K/mm3 (4.0-10.0)
[2018-07-18 07:30] LABS: ANION GAP 7 MMOL/L (8-16); BLOOD UREA NITROGEN 16 mg/dL (7-18); CALCIUM 8.5 mg/dL (8.5-10.1); CHLORIDE 101 mmol/L (98-107); CO2 25 mmol/L (21-32); CREATININE 1.2 mg/dL (0.55-1.3); GLUCOSE,RANDOM 121 mg/dL (74-106); MAGNESIUM 2.1 mg/dL (1.8-2.4); PHOSPHOROUS 3.5 mg/dL (2.5-4.9); POTASSIUM 4.1 mmol/L (3.5-5.1); SODIUM 133 mmol/L (136-145)
[2018-07-18 08:24] VITALS: BMI 27.2
[2018-07-18] MEDS: AZTREONAM 2 GM in DEXTROSE 5%-WATER 100 ML IVPB SCH (08:52)
[2018-07-18] MEDS: predniSONE 5 MG TABLET (UD) PO SCH (09:18)
[2018-07-18] MEDS: MULTIVITAMINS (DAILY MVI) TABLET (FP) PO SCH (09:18)
[2018-07-18] MEDS: ASPIRIN 81 MG CHEWABLE TABLETS PO SCH (09:18)
[2018-07-18] MEDS: LABETALOL HCL 200 MG TABLET (FP) PO SCH ×2 (09:18→21:35)
[2018-07-18] MEDS: RANITIDINE HCL 150 MG TABLET (FP) PO SCH (09:18)
[2018-07-18] MEDS: CALCIUM (OYSTER SHELL) 500 MG TABLET (FP) PO SCH ×2 (09:19→22:32)
[2018-07-18] MEDS: VITAMIN B COMPLEX W/C COMBO TABLET (FP) PO SCH (09:19)
[2018-07-18] MEDS: FERROUS SO4 325 MG TABLET (FP) PO SCH (09:19)
[2018-07-18] MEDS: NIFEdipine E.R 60 MG TABLET (UD) PO SCH ×2 (09:20→21:36)
[2018-07-18] MEDS: LACTOBACILLUS ACIDOPHILUS 1 TABLET PO SCH (09:25)
--- NOTE | 2018-07-18 09:37 | CONSULT ---
Consult Consult Specialty:: Podiatry Reason for Consultation:: left foot - History of Present Illness Chief Complaint: Pain and redness left foot History of Present Illness: Patient is known to me from previous admission and outpatient care. Call ed me yesterday complaining of vomiting and fever after taking 3 doses of bactrim. Advised her to come to ER which she did. - History Source History Provided By: Patient - Past Medical History Cardio/Vascular: Yes: CAD Gastrointestinal: Yes: GERD Renal/: Yes: Other (renal obstruction s/p stents) ...: No Rheumatology: Yes: Lupus, Vasculitis (chronic), Other (Bachets disease) Endocrine: Yes: Diabetes Mellitus - Past Surgical History Past Surgical History: Yes: Amputation (R AKA) - Alcohol/Substance Use Hx Alcohol Use: No - Smoking History Smoking history: Former smoker Have you smoked in the past 12 months: No Aproximately how many cigarettes per day: 0 If you are a former smoker, when did you quit?: 1979 - Social History ADL: Independent History of Recent Travel: No Home Medications - Allergies Allergies/Adverse Reactions: Allergies Allergy/AdvReac Type Severity Reaction Status Date / Time codeine [Codeine] Allergy Hives Verified 07/17/18 13:29 Penicillins Allergy Hives Verified 07/17/18 13:29 lactose AdvReac Verified 07/17/18 13:29 ranitidine [From Zantac] AdvReac headache Verified 07/17/18 13:29 - Home Medications Home Medications: Ambulatory Orders Hydroxychloroquine Sulfate [Plaquenil] 200 mg PO DAILY 10/20/15 Nifedipine [Procardia Xl] 60 mg PO BID 10/20/15 predniSONE [Deltasone -] 5 mg PO DAILY 10/20/15 Iron,Carbonyl [Feosol] 65 mg PO DAILY 11/20/15 Vitamin B Complex [B Complex # 1] 1 each PO DAILY 11/20/15 Labetalol HCl 200 mg PO BID 07/22/17 Calcium Carbonate [Calcium] 1,000 mg PO DAILY 05/17/18 Famotidine [Pepcid] 20 mg PO DAILY 05/17/18 Gabapentin [Neurontin -] 600 mg PO TID 05/17/18 Magnesium Chloride [Slow-Mag -] 64 mg PO DAILY 05/17/18 Multivit-Min36/Iron/Folic Acid [Geritol Complete Tablet] 1 each PO DAILY Aspirin [ASA -] 81 mg PO DAILY tab.chew 06/01/18 Tramadol HCl [Ultram] 50 mg PO DAILY #14 tablet MDD 1 06/04/18 Family Disease History - Family Disease History Family Disease History: Other: Brother (dementia) Physical Exam Vital Signs: Vital Signs Temperature 99.1 F 07/18/18 05:54 Pulse Rate 83 07/18/18 05:54 Respiratory Rate 20 07/18/18 05:54 Blood Pressure 139/59 L 07/18/18 05:54 O2 Sat by Pulse Oximetry (%) 94 L 07/17/18 21:00 Extremities: Yes: Other (+redness right arch area, -drainage, -wound, +tender upon palpation) Labs: CBC, BMP 07/18/18 06:00 07/18/18 06:00 Imaging - Results X-ray: Report Reviewed, Image Reviewed Assessment/Plan allergic rxn to bactrim? cellulitis? Gout? PVD? Raynauds? Foreign body? Continue abx as per ID. Will follow. Uric acid ordered. CT scan.
--- NOTE | 2018-07-18 11:24 | PN ---
Progress Note, Physician Chief Complaint: Ms Trent says she is feeling better today. - Current Medication List Current Medications: Active Medications Acetaminophen (Tylenol -) 650 mg PO Q4H PRN PRN Reason: FEVER Aspirin (Asa -) 81 mg PO DAILY [facility] Last Admin: 07/18/18 09:18 Dose: 81 mg Calcium Carbonate (Os-Ryan 500mg -) 1,000 mg PO BID [facility] Last Admin: 07/18/18 09:19 Dose: 1,000 mg Ferrous Sulfate (Feosol -) 325 mg PO DAILY [facility] Last Admin: 07/18/18 09:19 Dose: 325 mg Gabapentin (Neurontin -) 600 mg PO TID [facility] Last Admin: 07/18/18 05:42 Dose: 600 mg Heparin Sodium (Porcine) (Heparin -) 5,000 unit SQ TID [facility] Last Admin: 07/18/18 05:41 Dose: 5,000 unit Aztreonam 2 gm/ Dextrose 100 mls @ 100 mls/hr IVPB Q8H-IV [facility]; Protocol Vancomycin HCl 1,000 mg/ (Dextrose) 250 mls @ 166.667 mls/hr IVPB Q12H [facility]; Protocol Labetalol HCl (Normodyne -) 200 mg PO BID [facility] Last Admin: 07/18/18 09:18 Dose: 200 mg Lactobacillus Acidophilus (Bacid -) 1 tab PO DAILY [facility] Last Admin: 07/18/18 09:25 Dose: 1 tab Magnesium Chloride (Slow-Mag -) 64 mg PO DAILY [facility] Multivitamins (Total B With C -) 1 each PO DAILY [facility] Last Admin: 07/18/18 09:19 Dose: 1 each Multivitamins/Minerals/Vitamin C (Tab-A-Vit -) 1 tab PO DAILY [facility] Last Admin: 07/18/18 09:18 Dose: 1 tab Nifedipine (Procardia Xl -) 60 mg PO BID [facility] Last Admin: 07/18/18 09:20 Dose: 60 mg Prednisone (Deltasone -) 5 mg PO DAILY [facility] Last Admin: 07/18/18 09:18 Dose: 5 mg Ranitidine HCl (Zantac -) 150 mg PO DAILY [facility] Last Admin: 07/18/18 09:18 Dose: 150 mg Tramadol HCl (Ultram -) 50 mg PO Q8H PRN PRN Reason: PAIN LEVEL 6-10 Last Admin: 07/18/18 09:18 Dose: 50 mg - Objective Vital Signs: Vital Signs Temperature 37.1 C 07/18/18 10:00 Pulse Rate 73 07/18/18 10:00 Respiratory Rate 18 07/18/18 10:00 Blood Pressure 144/63 07/18/18 10:00 O2 Sat by Pulse Oximetry (%) 95 07/18/18 09:00 Constitutional: Yes: Well Nourished, No Distress, Calm Cardiovascular: Yes: Regular Rate and Rhythm. No: Gallop, Murmur, Rub Respiratory: Yes: Regular, CTA Bilaterally. No: Diminished, Rales, Rhonchi, Wheezes Gastrointestinal: Yes: Normal Bowel Sounds, Soft. No: Distention, Tenderness Extremities: Yes: Amputation (right leg) Edema: No Labs: CBC, BMP 07/18/18 06:00 07/18/18 06:00 INR, PTT INR 1.22 (0.83-1.09) H 07/17/18 15:20 Problem List - Problems (1) Osteomyelitis Code(s): M86.9 - OSTEOMYELITIS, UNSPECIFIED Qualifiers: Osteomyelitis type: acute hematogenous Osteomyelitis location: foot Laterality: left Qualified Code(s): M86.072 - Acute hematogenous osteomyelitis , left ankle and foot (2) Amputated right leg Code(s): Z89.611 - ACQUIRED ABSENCE OF RIGHT LEG ABOVE KNEE (3) Chronic renal disease, stage 3, moderately decreased glomerular filtration rate (GFR) between 30-59 mL/min/1.73 square meter Code(s): N18.3 - CHRONIC KIDNEY DISEASE, STAGE 3 (MODERATE) (4) HTN (hypertension) Code(s): I10 - ESSENTIAL (PRIMARY) HYPERTENSION (5) Lupus (systemic lupus erythematosus) Code(s): M32.9 - SYSTEMIC LUPUS ERYTHEMATOSUS, UNSPECIFIED (6) PVD (peripheral vascular disease) Code(s): I73.9 - PERIPHERAL VASCULAR DISEASE, UNSPECIFIED Assessment/Plan (1) Osteomyelitis Assessment/Plan: -appreciate podiatry assistance -agree with CT scan to evaluate for foreign body -agree with checking uric acid for possible gout -continue aztreonam and vancomycin currently -ID consulted and awaiting antibiotics recommendation Code(s): M86.9 - OSTEOMYELITIS, UNSPECIFIED Qualifiers: Osteomyelitis type: acute hematogenous Osteomyelitis location: foot Laterality: left Qualified Code(s): M86.072 - Acute hematogenous osteomyelitis , left ankle and foot (2) Amputated right leg Assessment/Plan: -noted Code(s): Z89.611 - ACQUIRED ABSENCE OF RIGHT LEG ABOVE KNEE (3) Chronic renal disease, stage 3, moderately decreased glomerular filtration rate (GFR) between 30-59 mL/min/1.73 square meter Assessment/Plan: -baseline Code(s): N18.3 - CHRONIC KIDNEY DISEASE, STAGE 3 (MODERATE) (4) HTN (hypertension) Assessment/Plan: -continue labetalol and procardia Code(s): I10 - ESSENTIAL (PRIMARY) HYPERTENSION (5) Lupus (systemic lupus erythematosus) Assessment/Plan: -will hold plaquenal in active infection -continue prednisone Code(s): M32.9 - SYSTEMIC LUPUS ERYTHEMATOSUS, UNSPECIFIED (6) PVD (peripheral vascular disease) Assessment/Plan: -plavix stopped per patient -continue aspirin -consult Dr Gomez Code(s): I73.9 - PERIPHERAL VASCULAR DISEASE, UNSPECIFIED
--- NOTE | 2018-07-18 12:04 | CONSULT ---
Consult - text type - Consultation Consultation Note: Mrs. Trent has a history of right BKA many years ago and iliac disease treated with bilateral stents. She has had arterial testing in April which showed decreased flow to left foot and a subsequent angio procedure treated tibial disease with atherectomy and angioplasty. She has been suffering with inflammation and pain of the left foot which has slowly improved with antibiotic and anti-inflammatory medication. She was started on PO Bactrim and developed nausea and vomiting. Today, she feels better. The foot is less inflamed and the small wounds are healed. The foot is warm with normal skin color. There is no fluctuance and slight erythema. Imp: There is no evoidence of worsening PAD. There is no evidence for chronic bone infection. Bone scam in april raised question of Charcot disease. I tried to get her started on Indocin but insurance denied it. She has been taking Aleve with some improvement. Plan: Trial of Indomethocin while in hospital.
[2018-07-18] MEDS: MAGNESIUM CL 64 MG TABLET.SA PO SCH (12:16)
[2018-07-18] MEDS: INDOMETHACIN 50 MG CAPSULE PO SCH ×2 (13:28→21:37)
--- NOTE | 2018-07-18 15:34 | CON.ID ---
Consult Consult Specialty:: infectious diseases Referred by:: Reason for Consultation:: cellulitis of the foot,r/o osteo - History of Present Illness Chief Complaint: pain and swelling of the leg History of Present Illness: 73 year old female who comes in with an infected foot wound. She has history of ischemic foot wound and is being followed by podiatry. On Friday it was noted to be more red and painful. She was placed on bactrim but when she took it she became itchy with nausea and vomiting. She was unable to tolerate more than 1 dose. After this she noted worsening pain and redness in her foot. She also had fevers as well. She called her plastic manager and was instructed to come in for further evaluation. patient has no other issues - History Source History Provided By: Patient Limitations to Obtaining History: No Limitations - Past Medical History Cardio/Vascular: Yes: CAD Gastrointestinal: Yes: GERD Renal/: Yes: Other (renal obstruction s/p stents) ...: No Rheumatology: Yes: Lupus, Vasculitis (chronic), Other (Bachets disease) Endocrine: Yes: Diabetes Mellitus - Past Surgical History Past Surgical History: Yes: Amputation (R AKA) - Alcohol/Substance Use Hx Alcohol Use: No - Smoking History Smoking history: Former smoker Have you smoked in the past 12 months: No Aproximately how many cigarettes per day: 0 If you are a former smoker, when did you quit?: 1979 - Social History ADL: Independent History of Recent Travel: No Home Medications - Allergies Allergies/Adverse Reactions: Allergies Allergy/AdvReac Type Severity Reaction Status Date / Time codeine [Codeine] Allergy Hives Verified 07/17/18 13:29 Penicillins Allergy Hives Verified 07/17/18 13:29 lactose AdvReac Verified 07/17/18 13:29 ranitidine [From Zantac] AdvReac headache Verified 07/17/18 13:29 - Home Medications Home Medications: Ambulatory Orders Hydroxychloroquine Sulfate [Plaquenil] 200 mg PO DAILY 10/20/15 Nifedipine [Procardia Xl] 60 mg PO BID 10/20/15 predniSONE [Deltasone -] 5 mg PO DAILY 10/20/15 Iron,Carbonyl [Feosol] 65 mg PO DAILY 11/20/15 Vitamin B Complex [B Complex # 1] 1 each PO DAILY 11/20/15 Labetalol HCl 200 mg PO BID 07/22/17 Calcium Carbonate [Calcium] 1,000 mg PO DAILY 05/17/18 Famotidine [Pepcid] 20 mg PO DAILY 05/17/18 Gabapentin [Neurontin -] 600 mg PO TID 05/17/18 Magnesium Chloride [Slow-Mag -] 64 mg PO DAILY 05/17/18 Multivit-Min36/Iron/Folic Acid [Geritol Complete Tablet] 1 each PO DAILY Aspirin [ASA -] 81 mg PO DAILY tab.chew 06/01/18 Tramadol HCl [Ultram] 50 mg PO DAILY #14 tablet MDD 1 06/04/18 Family Disease History - Family Disease History Family Disease History: Other: Brother (dementia) Review of Systems - Review of Systems Constitutional: reports: No Symptoms Eyes: reports: No Symptoms HENT: reports: No Symptoms Neck: reports: No Symptoms Cardiovascular: reports: No Symptoms Respiratory: reports: No Symptoms Gastrointestinal: reports: No Symptoms Genitourinary: reports: No Symptoms Musculoskeletal: reports: Other (left foot pain) Integumentary: reports: Change in Color, Erythema (left foot) Neurological: reports: No Symptoms Endocrine: reports: No Symptoms Hematology/Lymphatic: reports: No Symptoms Psychiatric: reports: No Symptoms Physical Exam Vital Signs: Vital Signs Temperature 98.8 F 07/18/18 10:00 Pulse Rate 73 07/18/18 10:00 Respiratory Rate 18 07/18/18 10:00 Blood Pressure 144/63 07/18/18 10:00 O2 Sat by Pulse Oximetry (%) 95 07/18/18 09:00 Constitutional: Yes: Calm, Mild Distress Cardiovascular: Yes: Regular Rate and Rhythm Respiratory: Yes: Regular, CTA Bilaterally Gastrointestinal: Yes: Normal Bowel Sounds, Soft Musculoskeletal: Yes: Muscle Pain Extremities: Yes: Erythema (left foot) Integumentary: Yes: Erythema (left foot) Neurological: Yes: Alert, Oriented Psychiatric: Yes: Alert, Oriented Labs: CBC, BMP 07/18/18 06:00 07/18/18 06:00 Imaging - Results Chest X-ray: Report Reviewed, Image Reviewed X-ray: Report Reviewed, Image Reviewed Assessment/Plan jose List - Problems (1) Osteomyelitis Code(s): M86.9 - OSTEOMYELITIS, UNSPECIFIED Qualifiers: Osteomyelitis type: acute hematogenous Osteomyelitis location: foot Laterality: left Qualified Code(s): M86.072 - Acute hematogenous osteomyelitis , left ankle and foot (2) Amputated right leg Code(s): Z89.611 - ACQUIRED ABSENCE OF RIGHT LEG ABOVE KNEE (3) Chronic renal disease, stage 3, moderately decreased glomerular filtration rate (GFR) between 30-59 mL/min/1.73 square meter Code(s): N18.3 - CHRONIC KIDNEY DISEASE, STAGE 3 (MODERATE) (4) HTN (hypertension) Code(s): I10 - ESSENTIAL (PRIMARY) HYPERTENSION (5) Lupus (systemic lupus erythematosus) Code(s): M32.9 - SYSTEMIC LUPUS ERYTHEMATOSUS, UNSPECIFIED (6) PVD (peripheral vascular disease) Code(s): I73.9 - PERIPHERAL VASCULAR DISEASE, UNSPECIFIED Assessment/Plan will start iv abx imaging studies elevation of leg podiatry to see the patient
--- NOTE | 2018-07-18 16:40 | EKG ---
Test Reason : Blood Pressure : / mmHG Vent. Rate : 090 BPM Atrial Rate : 090 BPM P-R Int : 142 ms QRS Dur : 072 ms QT Int : 344 ms P-R-T Axes : 038 025 046 degrees QTc Int : 420 ms NORMAL SINUS RHYTHM NORMAL ECG WHEN COMPARED WITH ECG OF 17-MAY-2018 14:06, NO SIGNIFICANT CHANGE WAS FOUND Confirmed by RISHI ALAN MD ([id number]) on 07/18/2018 4:40:21 PM Referred By: Confirmed By:RISHI ALAN MD
[2018-07-18] MEDS: AZTREONAM 1 GM in DEXTROSE 5%-WATER - 50 ML IVPB SCH (17:39)
[2018-07-18] MEDS ORDERED: PT OWN MED DRAWER 7, Y5N ONE (20:50)
[2018-07-19] MEDS: AZTREONAM 1 GM in DEXTROSE 5%-WATER - 50 ML IVPB SCH ×3 (01:35→17:39)
[2018-07-19] MEDS: GABAPENTIN 300 MG CAPSULE (FP) PO SCH ×3 (05:30→21:18)
[2018-07-19] MEDS: INDOMETHACIN 50 MG CAPSULE PO SCH ×3 (05:30→21:18)
[2018-07-19] MEDS ORDERED: PT OWN MED DRAWER 7, Y5N ONE (05:33)
[2018-07-19] MEDS: traMADol HCL 50 MG TABLET PO PRN (05:48)
[2018-07-19] MEDS: HEPARIN NA (PORCINE) 5,000 UNITS/ML 1ML VIAL SQ SCH ×3 (05:49→21:19)
[2018-07-19 07:35] LABS: BASO % 0.6 % (0-2.0); EOS % 3.8 % (0-4.5); HEMATOCRIT 29.8 % (32.4-45.2); HEMOGLOBIN 9.8 GM/dL (10.7-15.3); LYMPH % 25.2 % (8-40); MCHC 32.7 g/dl (32.0-36.0); MEAN CELL VOLUME 79.4 fl (80-96); MEAN PLT VOLUME 8.1 fl (7.5-11.1); MONO % 9.4 % (3.8-10.2); PLATELET COUNT 358 K/MM3 (134-434); RBC 3.76 M/mm3 (3.60-5.2); RDW 16.4 % (11.6-15.6)
[2018-07-19 07:46] LABS: ANION GAP 6 MMOL/L (8-16); BLOOD UREA NITROGEN 28 mg/dL (7-18); CALCIUM 9.5 mg/dL (8.5-10.1); CHLORIDE 103 mmol/L (98-107); CO2 27 mmol/L (21-32); CREATININE 1.3 mg/dL (0.55-1.3); GLUCOSE,RANDOM 133 mg/dL (74-106); MAGNESIUM 2.5 mg/dL (1.8-2.4); PHOSPHOROUS 4.4 mg/dL (2.5-4.9); SODIUM 135 mmol/L (136-145); URIC ACID 4.5 mg/dL (2.6-7.2)
[2018-07-19] MEDS: LACTOBACILLUS ACIDOPHILUS 1 TABLET PO SCH (10:01)
[2018-07-19] MEDS: FERROUS SO4 325 MG TABLET (FP) PO SCH (10:01)
[2018-07-19] MEDS: LABETALOL HCL 200 MG TABLET (FP) PO SCH ×2 (10:01→21:18)
[2018-07-19] MEDS: predniSONE 5 MG TABLET (UD) PO SCH (10:01)
[2018-07-19] MEDS: RANITIDINE HCL 150 MG TABLET (FP) PO SCH (10:01)
[2018-07-19] MEDS: MULTIVITAMINS (DAILY MVI) TABLET (FP) PO SCH (10:01)
[2018-07-19] MEDS: ASPIRIN 81 MG CHEWABLE TABLETS PO SCH (10:01)
[2018-07-19] MEDS: VITAMIN B COMPLEX W/C COMBO TABLET (FP) PO SCH (10:01)
[2018-07-19] MEDS: CALCIUM (OYSTER SHELL) 500 MG TABLET (FP) PO SCH ×2 (10:02→21:18)
[2018-07-19] MEDS: NIFEdipine E.R 60 MG TABLET (UD) PO SCH ×2 (10:02→21:18)
[2018-07-19] MEDS: MAGNESIUM CL 64 MG TABLET.SA PO SCH (10:02)
--- NOTE | 2018-07-19 13:29 | PN ---
Progress Note, Physician History of Present Illness: leg looks much better erythema an swelling ahs improved - Current Medication List Current Medications: Active Medications Acetaminophen (Tylenol -) 650 mg PO Q4H PRN PRN Reason: FEVER Aspirin (Asa -) 81 mg PO DAILY [facility] Last Admin: 07/19/18 10:01 Dose: 81 mg Calcium Carbonate (Os-Ryan 500mg -) 1,000 mg PO BID [facility] Last Admin: 07/19/18 10:02 Dose: 1,000 mg Ferrous Sulfate (Feosol -) 325 mg PO DAILY [facility] Last Admin: 07/19/18 10:01 Dose: 325 mg Gabapentin (Neurontin -) 600 mg PO TID [facility] Last Admin: 07/19/18 05:30 Dose: 600 mg Heparin Sodium (Porcine) (Heparin -) 5,000 unit SQ TID [facility] Last Admin: 07/19/18 05:49 Dose: 5,000 unit Vancomycin HCl 1,000 mg/ (Dextrose) 250 mls @ 166.667 mls/hr IVPB Q12H [facility]; Protocol Aztreonam 1 gm/ Dextrose 50 mls @ 100 mls/hr IVPB Q8H-IV [facility]; Protocol Last Admin: 07/19/18 12:11 Dose: 100 mls/hr Indomethacin (Indocin -) 50 mg PO TID [facility] Last Admin: 07/19/18 05:30 Dose: 50 mg Labetalol HCl (Normodyne -) 200 mg PO BID [facility] Last Admin: 07/19/18 10:01 Dose: 200 mg Lactobacillus Acidophilus (Bacid -) 1 tab PO DAILY [facility] Last Admin: 07/19/18 10:01 Dose: 1 tab Magnesium Chloride (Slow-Mag -) 64 mg PO DAILY [facility] Last Admin: 07/19/18 10:02 Dose: 64 mg Multivitamins (Total B With C -) 1 each PO DAILY [facility] Last Admin: 07/19/18 10:01 Dose: 1 each Multivitamins/Minerals/Vitamin C (Tab-A-Vit -) 1 tab PO DAILY [facility] Last Admin: 07/19/18 10:01 Dose: 1 tab Nifedipine (Procardia Xl -) 60 mg PO BID [facility] Last Admin: 07/19/18 10:02 Dose: 60 mg Prednisone (Deltasone -) 5 mg PO DAILY [facility] Last Admin: 07/19/18 10:01 Dose: 5 mg Ranitidine HCl (Zantac -) 150 mg PO DAILY [facility] Last Admin: 07/19/18 10:01 Dose: 150 mg Tramadol HCl (Ultram -) 50 mg PO Q8H PRN PRN Reason: PAIN LEVEL 6-10 Last Admin: 07/19/18 05:48 Dose: 50 mg - Objective Vital Signs: Vital Signs Temperature 98.9 F 07/19/18 09:33 Pulse Rate 64 07/19/18 09:33 Respiratory Rate 20 07/19/18 09:33 Blood Pressure 131/50 L 07/19/18 09:33 O2 Sat by Pulse Oximetry (%) 98 07/19/18 08:20 Constitutional: Yes: No Distress, Calm Cardiovascular: Yes: Regular Rate and Rhythm Respiratory: Yes: Regular, CTA Bilaterally Gastrointestinal: Yes: Normal Bowel Sounds, Soft Musculoskeletal: Yes: Other Extremities: Yes: Erythema (improving) Integumentary: Yes: Erythema (improved) Neurological: Yes: Alert, Oriented Psychiatric: Yes: Alert, Oriented Labs: CBC, BMP 07/19/18 06:00 07/19/18 06:00 INR, PTT INR 1.22 (0.83-1.09) H 07/17/18 15:20 Assessment/Plan roble List - Problems (1) Osteomyelitis Code(s): M86.9 - OSTEOMYELITIS, UNSPECIFIED Qualifiers: Osteomyelitis type: acute hematogenous Osteomyelitis location: foot Laterality: left Qualified Code(s): M86.072 - Acute hematogenous osteomyelitis , left ankle and foot (2) Amputated right leg Code(s): Z89.611 - ACQUIRED ABSENCE OF RIGHT LEG ABOVE KNEE (3) Chronic renal disease, stage 3, moderately decreased glomerular filtration rate (GFR) between 30-59 mL/min/1.73 square meter Code(s): N18.3 - CHRONIC KIDNEY DISEASE, STAGE 3 (MODERATE) (4) HTN (hypertension) Code(s): I10 - ESSENTIAL (PRIMARY) HYPERTENSION (5) Lupus (systemic lupus erythematosus) Code(s): M32.9 - SYSTEMIC LUPUS ERYTHEMATOSUS, UNSPECIFIED (6) PVD (peripheral vascular disease) Code(s): I73.9 - PERIPHERAL VASCULAR DISEASE, UNSPECIFIED Assessment/Plan continue iv abx continue to monitor rest as per the team improving
[2018-07-19] MEDS ORDERED: MAG HYDROX/AL HYDROX/SIMETH 30 ML UNIT-DOSE CUP PO PRN (14:55)
--- NOTE | 2018-07-19 16:30 | PN ---
Progress Note, Physician Chief Complaint: Ms Trent says she is feeling better today. Denies cp, sob, n/v. Hoping to go home soon. - Current Medication List Current Medications: Active Medications Acetaminophen (Tylenol -) 650 mg PO Q4H PRN PRN Reason: FEVER Al Hydroxide/Mg Hydroxide (Mylanta Oral Suspension -) 30 ml PO Q6H PRN PRN Reason: DYSPEPSIA Last Admin: 07/19/18 15:06 Dose: 30 ml Aspirin (Asa -) 81 mg PO DAILY [facility] Last Admin: 07/19/18 10:01 Dose: 81 mg Calcium Carbonate (Os-Ryan 500mg -) 1,000 mg PO BID [facility] Last Admin: 07/19/18 10:02 Dose: 1,000 mg Ferrous Sulfate (Feosol -) 325 mg PO DAILY [facility] Last Admin: 07/19/18 10:01 Dose: 325 mg Gabapentin (Neurontin -) 600 mg PO TID [facility] Last Admin: 07/19/18 14:04 Dose: 600 mg Heparin Sodium (Porcine) (Heparin -) 5,000 unit SQ TID [facility] Last Admin: 07/19/18 14:04 Dose: 5,000 unit Vancomycin HCl 1,000 mg/ (Dextrose) 250 mls @ 166.667 mls/hr IVPB Q12H [facility]; Protocol Aztreonam 1 gm/ Dextrose 50 mls @ 100 mls/hr IVPB Q8H-IV [facility]; Protocol Last Admin: 07/19/18 12:11 Dose: 100 mls/hr Indomethacin (Indocin -) 50 mg PO TID [facility] Last Admin: 07/19/18 14:05 Dose: 50 mg Labetalol HCl (Normodyne -) 200 mg PO BID [facility] Last Admin: 07/19/18 10:01 Dose: 200 mg Lactobacillus Acidophilus (Bacid -) 1 tab PO DAILY [facility] Last Admin: 07/19/18 10:01 Dose: 1 tab Magnesium Chloride (Slow-Mag -) 64 mg PO DAILY [facility] Last Admin: 07/19/18 10:02 Dose: 64 mg Multivitamins (Total B With C -) 1 each PO DAILY [facility] Last Admin: 07/19/18 10:01 Dose: 1 each Multivitamins/Minerals/Vitamin C (Tab-A-Vit -) 1 tab PO DAILY [facility] Last Admin: 03/24/19 10:01 Dose: 1 tab Nifedipine (Procardia Xl -) 60 mg PO BID [facility] Last Admin: 07/19/18 10:02 Dose: 60 mg Prednisone (Deltasone -) 5 mg PO DAILY [facility] Last Admin: 07/19/18 10:01 Dose: 5 mg Ranitidine HCl (Zantac -) 150 mg PO DAILY [facility] Last Admin: 07/19/18 10:01 Dose: 150 mg Tramadol HCl (Ultram -) 50 mg PO Q8H PRN PRN Reason: PAIN LEVEL 6-10 Last Admin: 07/19/18 05:48 Dose: 50 mg - Objective Vital Signs: Vital Signs Temperature 37.2 C 07/19/18 09:33 Pulse Rate 64 07/19/18 09:33 Respiratory Rate 20 07/19/18 09:33 Blood Pressure 131/50 L 07/19/18 09:33 O2 Sat by Pulse Oximetry (%) 98 07/19/18 08:20 Constitutional: Yes: Well Nourished, No Distress, Calm Cardiovascular: Yes: Regular Rate and Rhythm. No: Gallop, Murmur, Rub Respiratory: Yes: Regular, CTA Bilaterally. No: Rales, Rhonchi, Wheezes Gastrointestinal: Yes: Normal Bowel Sounds, Soft. No: Distention, Tenderness Extremities: Yes: Amputation Edema: No Labs: CBC, BMP 07/19/18 06:00 07/19/18 06:00 INR, PTT INR 1.22 (0.83-1.09) H 07/17/18 15:20 Problem List - Problems (1) Osteomyelitis Code(s): M86.9 - OSTEOMYELITIS, UNSPECIFIED Qualifiers: Osteomyelitis type: acute hematogenous Osteomyelitis location: foot Laterality: left Qualified Code(s): M86.072 - Acute hematogenous osteomyelitis , left ankle and foot (2) Amputated right leg Code(s): Z89.611 - ACQUIRED ABSENCE OF RIGHT LEG ABOVE KNEE (3) Chronic renal disease, stage 3, moderately decreased glomerular filtration rate (GFR) between 30-59 mL/min/1.73 square meter Code(s): N18.3 - CHRONIC KIDNEY DISEASE, STAGE 3 (MODERATE) (4) HTN (hypertension) Code(s): I10 - ESSENTIAL (PRIMARY) HYPERTENSION (5) Lupus (systemic lupus erythematosus) Code(s): M32.9 - SYSTEMIC LUPUS ERYTHEMATOSUS, UNSPECIFIED (6) PVD (peripheral vascular disease) Code(s): I73.9 - PERIPHERAL VASCULAR DISEASE, UNSPECIFIED Assessment/Plan (1) Osteomyelitis Assessment/Plan: -appreciate podiatry assistance -CT scan read pending -uric acid negative -continue aztreonam and vancomycin currently -Dr Cervantes to determine length of Abx Code(s): M86.9 - OSTEOMYELITIS, UNSPECIFIED Qualifiers: Osteomyelitis type: acute hematogenous Osteomyelitis location: foot Laterality: left Qualified Code(s): M86.072 - Acute hematogenous osteomyelitis , left ankle and foot (2) Amputated right leg Assessment/Plan: -noted Code(s): Z89.611 - ACQUIRED ABSENCE OF RIGHT LEG ABOVE KNEE (3) Chronic renal disease, stage 3, moderately decreased glomerular filtration rate (GFR) between 30-59 mL/min/1.73 square meter Assessment/Plan: -baseline Code(s): N18.3 - CHRONIC KIDNEY DISEASE, STAGE 3 (MODERATE) (4) HTN (hypertension) Assessment/Plan: -continue labetalol and procardia Code(s): I10 - ESSENTIAL (PRIMARY) HYPERTENSION (5) Lupus (systemic lupus erythematosus) Assessment/Plan: -will hold plaquenal in active infection -continue prednisone Code(s): M32.9 - SYSTEMIC LUPUS ERYTHEMATOSUS, UNSPECIFIED (6) PVD (peripheral vascular disease) Assessment/Plan: -plavix stopped per patient -continue aspirin -appreciate vascular surgery assistance Code(s): I73.9 - PERIPHERAL VASCULAR DISEASE, UNSPECIFIED
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
[2018-07-20] MEDS: AZTREONAM 1 GM in DEXTROSE 5%-WATER - 50 ML IVPB SCH ×3 (01:50→17:50)
[2018-07-20] MEDS ORDERED: PT OWN MED DRAWER 7, Y5N ONE ×2 (05:35→10:16)
[2018-07-20] MEDS: GABAPENTIN 300 MG CAPSULE (FP) PO SCH ×3 (05:44→21:50)
[2018-07-20] MEDS: HEPARIN NA (PORCINE) 5,000 UNITS/ML 1ML VIAL SQ SCH ×2 (05:44→14:01)
[2018-07-20] MEDS: INDOMETHACIN 50 MG CAPSULE PO SCH ×3 (05:45→21:50)
[2018-07-20 07:19] LABS: BASO % 0.2 % (0-2.0); EOS % 0.6 % (0-4.5); HEMATOCRIT 29.7 % (32.4-45.2); HEMOGLOBIN 9.9 GM/dL (10.7-15.3); LYMPH % 18.7 % (8-40); MCH 26.6 pg (25.7-33.7); MCHC 33.3 g/dl (32.0-36.0); MEAN CELL VOLUME 79.9 fl (80-96); MEAN PLT VOLUME 8.4 fl (7.5-11.1); MONO % 10.1 % (3.8-10.2); NEUT % 70.4 % (42.8-82.8); PLATELET COUNT 383 K/MM3 (134-434); RBC 3.72 M/mm3 (3.60-5.2); RDW 16.4 % (11.6-15.6)
[2018-07-20 07:30] LABS: ANION GAP 7 MMOL/L (8-16); BLOOD UREA NITROGEN 33 mg/dL (7-18); CALCIUM 10.2 mg/dL (8.5-10.1); CHLORIDE 105 mmol/L (98-107); CO2 27 mmol/L (21-32); CREATININE 1.3 mg/dL (0.55-1.3); GLUCOSE,RANDOM 99 mg/dL (74-106); MAGNESIUM 2.2 mg/dL (1.8-2.4); PHOSPHOROUS 4.4 mg/dL (2.5-4.9); POTASSIUM 4.3 mmol/L (3.5-5.1); SODIUM 139 mmol/L (136-145)
[2018-07-20] MEDS: LABETALOL HCL 200 MG TABLET (FP) PO SCH ×2 (10:17→21:50)
[2018-07-20] MEDS: SERTRALINE HCL 50 MG TABLET (FP) PO SCH (10:17)
[2018-07-20] MEDS: RANITIDINE HCL 150 MG TABLET (FP) PO SCH (10:17)
[2018-07-20] MEDS: ASPIRIN 81 MG CHEWABLE TABLETS PO SCH (10:17)
[2018-07-20] MEDS: FERROUS SO4 325 MG TABLET (FP) PO SCH (10:17)
[2018-07-20] MEDS: VITAMIN B COMPLEX W/C COMBO TABLET (FP) PO SCH (10:17)
[2018-07-20] MEDS: MULTIVITAMINS (DAILY MVI) TABLET (FP) PO SCH (10:17)
[2018-07-20] MEDS: predniSONE 5 MG TABLET (UD) PO SCH (10:17)
[2018-07-20] MEDS: CALCIUM (OYSTER SHELL) 500 MG TABLET (FP) PO SCH ×2 (10:18→21:50)
[2018-07-20] MEDS: LACTOBACILLUS ACIDOPHILUS 1 TABLET PO SCH (10:18)
[2018-07-20] MEDS: NIFEdipine E.R 60 MG TABLET (UD) PO SCH ×2 (10:18→21:51)
[2018-07-20] MEDS: MAGNESIUM CL 64 MG TABLET.SA PO SCH (10:19)
[2018-07-20] MEDS: traMADol HCL 50 MG TABLET PO PRN ×2 (11:12→21:51)
--- NOTE | 2018-07-20 11:37 | PN ---
Progress Note (short form) - Note Progress Note: Complains of pain and swelling of lower abdominal wall from injection this AM. Foot feels better, able to walk. VSS Lower abdominal wall ecchymosis and hematoma. Rest of abdomen soft Left foot has less erythema and inflammation. Imp: SubQ hematoma from injection - on Heparin Foot pain improved on Indocin Rec: Ice pack to abdomen Decrease or D/C Heparin Continue NSAID
--- NOTE | 2018-07-20 12:05 | PN ---
Progress Note (short form) - Note Progress Note: FUV left foot. Feeling better. vss, Tmax 97.6 wbc=12.0, crp 13.0, uric acid 4.5, +improved erythema, no open wounds, ct negative arthralgia lupus cellulitis/abscess? IVABX as per ID. Will follow. No dressing left foot. PT ok. present throughout.
--- NOTE | 2018-07-20 12:39 | PN ---
Progress Note, Physician History of Present Illness: leg continues to improve patient doing well - Current Medication List Current Medications: Active Medications Acetaminophen (Tylenol -) 650 mg PO Q4H PRN PRN Reason: FEVER Al Hydroxide/Mg Hydroxide (Mylanta Oral Suspension -) 30 ml PO Q6H PRN PRN Reason: DYSPEPSIA Last Admin: 07/19/18 15:06 Dose: 30 ml Aspirin (Asa -) 81 mg PO DAILY [facility] Last Admin: 07/20/18 10:17 Dose: 81 mg Calcium Carbonate (Os-Ryan 500mg -) 1,000 mg PO BID [facility] Last Admin: 07/20/18 10:18 Dose: 1,000 mg Ferrous Sulfate (Feosol -) 325 mg PO DAILY [facility] Last Admin: 07/20/18 10:17 Dose: 325 mg Gabapentin (Neurontin -) 600 mg PO TID [facility] Last Admin: 07/20/18 05:44 Dose: 600 mg Heparin Sodium (Porcine) (Heparin -) 5,000 unit SQ TID [facility] Last Admin: 07/20/18 05:44 Dose: 5,000 unit Vancomycin HCl 1,000 mg/ (Dextrose) 250 mls @ 166.667 mls/hr IVPB Q12H [facility]; Protocol Aztreonam 1 gm/ Dextrose 50 mls @ 100 mls/hr IVPB Q8H-IV [facility]; Protocol Last Admin: 07/20/18 11:05 Dose: 100 mls/hr Indomethacin (Indocin -) 50 mg PO TID [facility] Last Admin: 07/20/18 05:45 Dose: 50 mg Labetalol HCl (Normodyne -) 200 mg PO BID [facility] Last Admin: 07/20/18 10:17 Dose: 200 mg Lactobacillus Acidophilus (Bacid -) 1 tab PO DAILY [facility] Last Admin: 07/20/18 10:18 Dose: 1 tab Magnesium Chloride (Slow-Mag -) 64 mg PO DAILY [facility] Last Admin: 07/20/18 10:19 Dose: 64 mg Multivitamins (Total B With C -) 1 each PO DAILY [facility] Last Admin: 07/20/18 10:17 Dose: 1 each Multivitamins/Minerals/Vitamin C (Tab-A-Vit -) 1 tab PO DAILY [facility] Last Admin: 07/20/18 10:17 Dose: 1 tab Nifedipine (Procardia Xl -) 60 mg PO BID [facility] Last Admin: 07/20/18 10:18 Dose: 60 mg Prednisone (Deltasone -) 5 mg PO DAILY [facility] Last Admin: 07/20/18 10:17 Dose: 5 mg Ranitidine HCl (Zantac -) 150 mg PO DAILY [facility] Last Admin: 07/20/18 10:17 Dose: 150 mg Sertraline HCl (Zoloft -) 50 mg PO DAILY [facility] Last Admin: 07/20/18 10:17 Dose: 50 mg Tramadol HCl (Ultram -) 50 mg PO Q8H PRN PRN Reason: PAIN LEVEL 6-10 Last Admin: 07/20/18 11:12 Dose: 50 mg - Objective Vital Signs: Vital Signs Temperature 97.6 F 07/20/18 09:35 Pulse Rate 72 07/20/18 09:35 Respiratory Rate 20 07/20/18 09:35 Blood Pressure 146/60 07/20/18 09:35 O2 Sat by Pulse Oximetry (%) 97 07/20/18 09:00 Constitutional: Yes: No Distress, Calm Cardiovascular: Yes: S1, S2 Respiratory: Yes: Regular, CTA Bilaterally Gastrointestinal: Yes: Normal Bowel Sounds, Soft Musculoskeletal: Yes: WNL Extremities: Yes: Other Integumentary: Yes: Erythema, Other Neurological: Yes: Alert, Oriented Psychiatric: Yes: Alert, Oriented Labs: CBC, BMP 07/20/18 06:15 07/20/18 06:15 INR, PTT INR 1.22 (0.83-1.09) H 07/17/18 15:20 Assessment/Plan roblem List - Problems (1) Osteomyelitis Code(s): M86.9 - OSTEOMYELITIS, UNSPECIFIED Qualifiers: Osteomyelitis type: acute hematogenous Osteomyelitis location: foot Laterality: left Qualified Code(s): M86.072 - Acute hematogenous osteomyelitis , left ankle and foot (2) Amputated right leg Code(s): Z89.611 - ACQUIRED ABSENCE OF RIGHT LEG ABOVE KNEE (3) Chronic renal disease, stage 3, moderately decreased glomerular filtration rate (GFR) between 30-59 mL/min/1.73 square meter Code(s): N18.3 - CHRONIC KIDNEY DISEASE, STAGE 3 (MODERATE) (4) HTN (hypertension) Code(s): I10 - ESSENTIAL (PRIMARY) HYPERTENSION (5) Lupus (systemic lupus erythematosus) Code(s): M32.9 - SYSTEMIC LUPUS ERYTHEMATOSUS, UNSPECIFIED (6) PVD (peripheral vascular disease) Code(s): I73.9 - PERIPHERAL VASCULAR DISEASE, UNSPECIFIED Assessment/Plan continue iv abx continue to monitor rest as per the team improving will see how the patient does tomorrow
--- NOTE | 2018-07-20 17:30 | PN ---
Progress Note, Physician Chief Complaint: Ms Trent complains of hematomas at heparin injection site. No cp, sob, n/v. - Current Medication List Current Medications: Active Medications Acetaminophen (Tylenol -) 650 mg PO Q4H PRN PRN Reason: FEVER Al Hydroxide/Mg Hydroxide (Mylanta Oral Suspension -) 30 ml PO Q6H PRN PRN Reason: DYSPEPSIA Last Admin: 07/19/18 15:06 Dose: 30 ml Aspirin (Asa -) 81 mg PO DAILY [facility] Last Admin: 07/20/18 10:17 Dose: 81 mg Calcium Carbonate (Os-Ryan 500mg -) 1,000 mg PO BID [facility] Last Admin: 07/20/18 10:18 Dose: 1,000 mg Ferrous Sulfate (Feosol -) 325 mg PO DAILY [facility] Last Admin: 07/20/18 10:17 Dose: 325 mg Gabapentin (Neurontin -) 600 mg PO TID [facility] Last Admin: 07/20/18 14:01 Dose: 600 mg Heparin Sodium (Porcine) (Heparin -) 5,000 unit SQ TID [facility] Last Admin: 07/20/18 14:01 Dose: 5,000 unit Vancomycin HCl 1,000 mg/ (Dextrose) 250 mls @ 166.667 mls/hr IVPB Q12H [facility]; Protocol Aztreonam 1 gm/ Dextrose 50 mls @ 100 mls/hr IVPB Q8H-IV [facility]; Protocol Last Admin: 07/20/18 11:05 Dose: 100 mls/hr Indomethacin (Indocin -) 50 mg PO TID [facility] Last Admin: 07/20/18 14:01 Dose: 50 mg Labetalol HCl (Normodyne -) 200 mg PO BID [facility] Last Admin: 07/20/18 10:17 Dose: 200 mg Lactobacillus Acidophilus (Bacid -) 1 tab PO DAILY [facility] Last Admin: 07/20/18 10:18 Dose: 1 tab Magnesium Chloride (Slow-Mag -) 64 mg PO DAILY [facility] Last Admin: 07/20/18 10:19 Dose: 64 mg Multivitamins (Total B With C -) 1 each PO DAILY [facility] Last Admin: 07/20/18 10:17 Dose: 1 each Multivitamins/Minerals/Vitamin C (Tab-A-Vit -) 1 tab PO DAILY [facility] Last Admin: 07/20/18 10:17 Dose: 1 tab Nifedipine (Procardia Xl -) 60 mg PO BID [facility] Last Admin: 07/20/18 10:18 Dose: 60 mg Prednisone (Deltasone -) 5 mg PO DAILY [facility] Last Admin: 07/20/18 10:17 Dose: 5 mg Ranitidine HCl (Zantac -) 150 mg PO DAILY [facility] Last Admin: 07/20/18 10:17 Dose: 150 mg Sertraline HCl (Zoloft -) 50 mg PO DAILY [facility] Last Admin: 07/20/18 10:17 Dose: 50 mg Tramadol HCl (Ultram -) 50 mg PO Q8H PRN PRN Reason: PAIN LEVEL 6-10 Last Admin: 07/20/18 11:12 Dose: 50 mg - Objective Vital Signs: Vital Signs Temperature 36.6 C 07/20/18 14:53 Pulse Rate 61 07/20/18 14:53 Respiratory Rate 20 07/20/18 09:35 Blood Pressure 112/45 L 07/20/18 14:53 O2 Sat by Pulse Oximetry (%) 97 07/20/18 09:00 Constitutional: Yes: Well Nourished, No Distress, Calm Cardiovascular: Yes: Regular Rate and Rhythm. No: Gallop, Murmur, Rub Respiratory: Yes: Regular, CTA Bilaterally. No: Rales, Rhonchi, Wheezes Gastrointestinal: Yes: Normal Bowel Sounds, Soft, Other (bruising at heparin injection site). No: Distention, Tenderness Extremities: Yes: WNL Edema: No Labs: CBC, BMP 07/20/18 06:15 07/20/18 06:15 INR, PTT INR 1.22 (0.83-1.09) H 07/17/18 15:20 Problem List - Problems (1) Osteomyelitis Code(s): M86.9 - OSTEOMYELITIS, UNSPECIFIED Qualifiers: Osteomyelitis type: acute hematogenous Osteomyelitis location: foot Laterality: left Qualified Code(s): M86.072 - Acute hematogenous osteomyelitis , left ankle and foot (2) Amputated right leg Code(s): Z89.611 - ACQUIRED ABSENCE OF RIGHT LEG ABOVE KNEE (3) Chronic renal disease, stage 3, moderately decreased glomerular filtration rate (GFR) between 30-59 mL/min/1.73 square meter Code(s): N18.3 - CHRONIC KIDNEY DISEASE, STAGE 3 (MODERATE) (4) HTN (hypertension) Code(s): I10 - ESSENTIAL (PRIMARY) HYPERTENSION (5) Lupus (systemic lupus erythematosus) Code(s): M32.9 - SYSTEMIC LUPUS ERYTHEMATOSUS, UNSPECIFIED (6) PVD (peripheral vascular disease) Code(s): I73.9 - PERIPHERAL VASCULAR DISEASE, UNSPECIFIED Assessment/Plan (1) Osteomyelitis Assessment/Plan: -appreciate podiatry assistance -called radiology for read, pending -uric acid negative -continue aztreonam and vancomycin currently -possible discharge tomorrow Code(s): M86.9 - OSTEOMYELITIS, UNSPECIFIED Qualifiers: Osteomyelitis type: acute hematogenous Osteomyelitis location: foot Laterality: left Qualified Code(s): M86.072 - Acute hematogenous osteomyelitis , left ankle and foot (2) Amputated right leg Assessment/Plan: -noted Code(s): Z89.611 - ACQUIRED ABSENCE OF RIGHT LEG ABOVE KNEE (3) Chronic renal disease, stage 3, moderately decreased glomerular filtration rate (GFR) between 30-59 mL/min/1.73 square meter Assessment/Plan: -baseline Code(s): N18.3 - CHRONIC KIDNEY DISEASE, STAGE 3 (MODERATE) (4) HTN (hypertension) Assessment/Plan: -continue labetalol and procardia Code(s): I10 - ESSENTIAL (PRIMARY) HYPERTENSION (5) Lupus (systemic lupus erythematosus) Assessment/Plan: -will hold plaquenal in active infection -continue prednisone Code(s): M32.9 - SYSTEMIC LUPUS ERYTHEMATOSUS, UNSPECIFIED (6) PVD (peripheral vascular disease) Assessment/Plan: -plavix stopped per patient -continue aspirin -appreciate vascular surgery assistance Code(s): I73.9 - PERIPHERAL VASCULAR DISEASE, UNSPECIFIED
[2018-07-21] MEDS ORDERED: PT OWN MED DRAWER 7, Y5N ONE ×2 (01:38→21:17)
[2018-07-21] MEDS: AZTREONAM 1 GM in DEXTROSE 5%-WATER - 50 ML IVPB SCH ×3 (01:56→18:42)
[2018-07-21] MEDS: INDOMETHACIN 50 MG CAPSULE PO SCH ×3 (06:19→21:40)
[2018-07-21] MEDS: GABAPENTIN 300 MG CAPSULE (FP) PO SCH ×3 (06:19→21:40)
[2018-07-21 07:46] LABS: BASO % 0.6 % (0-2.0); EOS % 1.2 % (0-4.5); HEMATOCRIT 28.5 % (32.4-45.2); HEMOGLOBIN 9.1 GM/dL (10.7-15.3); LYMPH % 10.8 % (8-40); MCH 25.5 pg (25.7-33.7); MEAN CELL VOLUME 79.7 fl (80-96); MEAN PLT VOLUME 8.1 fl (7.5-11.1); NEUT % 77.4 % (42.8-82.8); PLATELET COUNT 403 K/MM3 (134-434); RBC 3.58 M/mm3 (3.60-5.2); RDW 16.8 % (11.6-15.6); WHITE BLOOD COUNT 17.3 K/mm3 (4.0-10.0)
[2018-07-21 08:16] LABS: ANION GAP 8 MMOL/L (8-16); BLOOD UREA NITROGEN 27 mg/dL (7-18); CALCIUM 9.7 mg/dL (8.5-10.1); CHLORIDE 104 mmol/L (98-107); CO2 25 mmol/L (21-32); CREATININE 1.1 mg/dL (0.55-1.3); GLUCOSE,RANDOM 137 mg/dL (74-106); MAGNESIUM 2.2 mg/dL (1.8-2.4); PHOSPHOROUS 4.2 mg/dL (2.5-4.9); POTASSIUM 4.2 mmol/L (3.5-5.1); SODIUM 137 mmol/L (136-145)
[2018-07-21] MEDS: ASPIRIN 81 MG CHEWABLE TABLETS PO SCH (10:33)
[2018-07-21] MEDS: predniSONE 5 MG TABLET (UD) PO SCH (10:33)
[2018-07-21] MEDS: LABETALOL HCL 200 MG TABLET (FP) PO SCH ×2 (10:33→21:40)
[2018-07-21] MEDS: FERROUS SO4 325 MG TABLET (FP) PO SCH (10:33)
[2018-07-21] MEDS: LACTOBACILLUS ACIDOPHILUS 1 TABLET PO SCH (10:33)
[2018-07-21] MEDS: SERTRALINE HCL 50 MG TABLET (FP) PO SCH (10:34)
[2018-07-21] MEDS: MULTIVITAMINS (DAILY MVI) TABLET (FP) PO SCH (10:34)
[2018-07-21] MEDS: RANITIDINE HCL 150 MG TABLET (FP) PO SCH (10:34)
[2018-07-21] MEDS: NIFEdipine E.R 60 MG TABLET (UD) PO SCH ×2 (10:35→21:41)
[2018-07-21] MEDS: VITAMIN B COMPLEX W/C COMBO TABLET (FP) PO SCH (10:35)
[2018-07-21] MEDS: CALCIUM (OYSTER SHELL) 500 MG TABLET (FP) PO SCH ×2 (10:36→21:41)
[2018-07-21] MEDS: MAGNESIUM CL 64 MG TABLET.SA PO SCH (10:36)
--- NOTE | 2018-07-21 13:32 | DS ---
Physical Examination Vital Signs: Vital Signs Temperature 37.1 C 07/21/18 10:57 Pulse Rate 77 07/21/18 10:57 Respiratory Rate 18 07/21/18 10:57 Blood Pressure 146/57 L 07/21/18 10:57 O2 Sat by Pulse Oximetry (%) 98 07/20/18 21:00 Labs: CBC, BMP 07/21/18 07:00 07/21/18 07:00 Discharge Summary Reason For Visit: INFECTION OF LEFT FOOT Current Active Problems Left foot infection (Acute) PVD (peripheral vascular disease) (Acute) Vomiting (Acute) Condition: Stable - Instructions Diet, Activity, Other Instructions: resume previous diet and activity Referrals: Yaya Montoya MD [Primary Care Provider] - Maggie Cervantes MD [Staff Physician] - Disposition: HOME - Home Medications Comprehensive Discharge Medication List: Ambulatory Orders Hydroxychloroquine Sulfate [Plaquenil] 200 mg PO DAILY 10/20/15 Nifedipine [Procardia Xl] 60 mg PO BID 10/20/15 predniSONE [Deltasone -] 5 mg PO DAILY 10/20/15 Iron,Carbonyl [Feosol] 65 mg PO DAILY 11/20/15 Vitamin B Complex [B Complex # 1] 1 each PO DAILY 11/20/15 Labetalol HCl 200 mg PO BID 07/22/17 Calcium Carbonate [Calcium] 1,000 mg PO DAILY 05/17/18 Famotidine [Pepcid] 20 mg PO DAILY 05/17/18 Gabapentin [Neurontin -] 600 mg PO TID 05/17/18 Magnesium Chloride [Slow-Mag -] 64 mg PO DAILY 05/17/18 Multivit-Min36/Iron/Folic Acid [Geritol Complete Tablet] 1 each PO DAILY Aspirin [ASA -] 81 mg PO DAILY tab.chew 06/01/18 Tramadol HCl [Ultram] 50 mg PO DAILY #14 tablet MDD 1 06/04/18 Clindamycin [Cleocin -] 300 mg PO Q6HPO #20 capsule 07/21/18 Lactobacillus Acidophilus [Bacid -] 1 tab PO DAILY #30 tab 07/21/18 Sertraline HCl [Zoloft -] 50 mg PO DAILY #30 tablet 07/21/18 Vancomycin HCl [Vancocin HCl] 125 mg PO QID #28 capsule 07/21/18
--- NOTE | 2018-07-21 13:47 | PN ---
Progress Note, Physician History of Present Illness: patient stable leg looks better having dirrhoea - Current Medication List Current Medications: Active Medications Acetaminophen (Tylenol -) 650 mg PO Q4H PRN PRN Reason: FEVER Last Admin: 07/21/18 10:35 Dose: 650 mg Al Hydroxide/Mg Hydroxide (Mylanta Oral Suspension -) 30 ml PO Q6H PRN PRN Reason: DYSPEPSIA Last Admin: 07/19/18 15:06 Dose: 30 ml Aspirin (Asa -) 81 mg PO DAILY [facility] Last Admin: 07/21/18 10:33 Dose: 81 mg Calcium Carbonate (Os-Ryan 500mg -) 1,000 mg PO BID [facility] Last Admin: 07/21/18 10:36 Dose: 1,000 mg Ferrous Sulfate (Feosol -) 325 mg PO DAILY [facility] Last Admin: 07/21/18 10:33 Dose: 325 mg Gabapentin (Neurontin -) 600 mg PO TID [facility] Last Admin: 07/21/18 06:19 Dose: 600 mg Vancomycin HCl 1,000 mg/ (Dextrose) 250 mls @ 166.667 mls/hr IVPB Q12H [facility]; Protocol Aztreonam 1 gm/ Dextrose 50 mls @ 100 mls/hr IVPB Q8H-IV [facility]; Protocol Last Admin: 07/21/18 10:33 Dose: 100 mls/hr Indomethacin (Indocin -) 50 mg PO TID [facility] Last Admin: 07/21/18 06:19 Dose: 50 mg Labetalol HCl (Normodyne -) 200 mg PO BID [facility] Last Admin: 07/21/18 10:33 Dose: 200 mg Lactobacillus Acidophilus (Bacid -) 1 tab PO DAILY [facility] Last Admin: 07/21/18 10:33 Dose: 1 tab Magnesium Chloride (Slow-Mag -) 64 mg PO DAILY [facility] Last Admin: 07/21/18 10:36 Dose: 64 mg Multivitamins (Total B With C -) 1 each PO DAILY [facility] Last Admin: 07/21/18 10:35 Dose: 1 each Multivitamins/Minerals/Vitamin C (Tab-A-Vit -) 1 tab PO DAILY [facility] Last Admin: 07/21/18 10:34 Dose: 1 tab Nifedipine (Procardia Xl -) 60 mg PO BID [facility] Last Admin: 07/21/18 10:35 Dose: 60 mg Prednisone (Deltasone -) 5 mg PO DAILY [facility] Last Admin: 07/21/18 10:33 Dose: 5 mg Ranitidine HCl (Zantac -) 150 mg PO DAILY [facility] Last Admin: 07/21/18 10:34 Dose: 150 mg Sertraline HCl (Zoloft -) 50 mg PO DAILY [facility] Last Admin: 07/21/18 10:34 Dose: 50 mg Tramadol HCl (Ultram -) 50 mg PO Q8H PRN PRN Reason: PAIN LEVEL 6-10 Last Admin: 07/20/18 21:51 Dose: 50 mg - Objective Vital Signs: Vital Signs Temperature 98.7 F 07/21/18 10:57 Pulse Rate 77 07/21/18 10:57 Respiratory Rate 18 07/21/18 10:57 Blood Pressure 146/57 L 07/21/18 10:57 O2 Sat by Pulse Oximetry (%) 98 07/20/18 21:00 Constitutional: Yes: No Distress, Calm Cardiovascular: Yes: Regular Rate and Rhythm Respiratory: Yes: Regular, CTA Bilaterally Gastrointestinal: Yes: Normal Bowel Sounds, Soft Musculoskeletal: Yes: WNL Extremities: Yes: Other (cellulitis of the leg improved) Integumentary: Yes: Erythema (improved) Neurological: Yes: Alert, Oriented Psychiatric: Yes: Alert, Oriented Labs: CBC, BMP 07/21/18 07:00 07/21/18 07:00 INR, PTT INR 1.22 (0.83-1.09) H 07/17/18 15:20 Assessment/Plan roblem List - Problems (1) Osteomyelitis Code(s): M86.9 - OSTEOMYELITIS, UNSPECIFIED Qualifiers: Osteomyelitis type: acute hematogenous Osteomyelitis location: foot Laterality: left Qualified Code(s): M86.072 - Acute hematogenous osteomyelitis , left ankle and foot (2) Amputated right leg Code(s): Z89.611 - ACQUIRED ABSENCE OF RIGHT LEG ABOVE KNEE (3) Chronic renal disease, stage 3, moderately decreased glomerular filtration rate (GFR) between 30-59 mL/min/1.73 square meter Code(s): N18.3 - CHRONIC KIDNEY DISEASE, STAGE 3 (MODERATE) (4) HTN (hypertension) Code(s): I10 - ESSENTIAL (PRIMARY) HYPERTENSION (5) Lupus (systemic lupus erythematosus) Code(s): M32.9 - SYSTEMIC LUPUS ERYTHEMATOSUS, UNSPECIFIED (6) PVD (peripheral vascular disease) Code(s): I73.9 - PERIPHERAL VASCULAR DISEASE, UNSPECIFIED Assessment/Plan can switch to oral doxy 100 mg po bid monitor leg rest as per the team check for cdiff
--- NOTE | 2018-07-21 16:33 | PN ---
Progress Note, Physician Chief Complaint: Ms Trent says she is having watery diarrhea today. Also with some abdominal pain. Denies cp, sob, n/v. - Current Medication List Current Medications: Active Medications Acetaminophen (Tylenol -) 650 mg PO Q4H PRN PRN Reason: FEVER Last Admin: 07/21/18 10:35 Dose: 650 mg Al Hydroxide/Mg Hydroxide (Mylanta Oral Suspension -) 30 ml PO Q6H PRN PRN Reason: DYSPEPSIA Last Admin: 07/19/18 15:06 Dose: 30 ml Aspirin (Asa -) 81 mg PO DAILY [facility] Last Admin: 07/21/18 10:33 Dose: 81 mg Calcium Carbonate (Os-Ryan 500mg -) 1,000 mg PO BID [facility] Last Admin: 07/21/18 10:36 Dose: 1,000 mg Ferrous Sulfate (Feosol -) 325 mg PO DAILY [facility] Last Admin: 07/21/18 10:33 Dose: 325 mg Gabapentin (Neurontin -) 600 mg PO TID [facility] Last Admin: 07/21/18 14:08 Dose: 600 mg Vancomycin HCl 1,000 mg/ (Dextrose) 250 mls @ 166.667 mls/hr IVPB Q12H [facility]; Protocol Aztreonam 1 gm/ Dextrose 50 mls @ 100 mls/hr IVPB Q8H-IV [facility]; Protocol Last Admin: 07/21/18 10:33 Dose: 100 mls/hr Indomethacin (Indocin -) 50 mg PO TID [facility] Last Admin: 07/21/18 14:09 Dose: 50 mg Labetalol HCl (Normodyne -) 200 mg PO BID [facility] Last Admin: 07/21/18 10:33 Dose: 200 mg Lactobacillus Acidophilus (Bacid -) 1 tab PO DAILY [facility] Last Admin: 07/21/18 10:33 Dose: 1 tab Magnesium Chloride (Slow-Mag -) 64 mg PO DAILY [facility] Last Admin: 07/21/18 10:36 Dose: 64 mg Multivitamins (Total B With C -) 1 each PO DAILY [facility] Last Admin: 07/21/18 10:35 Dose: 1 each Multivitamins/Minerals/Vitamin C (Tab-A-Vit -) 1 tab PO DAILY [facility] Last Admin: 07/21/18 10:34 Dose: 1 tab Nifedipine (Procardia Xl -) 60 mg PO BID [facility] Last Admin: 07/21/18 10:35 Dose: 60 mg Prednisone (Deltasone -) 5 mg PO DAILY [facility] Last Admin: 07/21/18 10:33 Dose: 5 mg Ranitidine HCl (Zantac -) 150 mg PO DAILY [facility] Last Admin: 07/21/18 10:34 Dose: 150 mg Sertraline HCl (Zoloft -) 50 mg PO DAILY [facility] Last Admin: 07/21/18 10:34 Dose: 50 mg Tramadol HCl (Ultram -) 50 mg PO Q8H PRN PRN Reason: PAIN LEVEL 6-10 Last Admin: 07/20/18 21:51 Dose: 50 mg - Objective Vital Signs: Vital Signs Temperature 37.0 C 07/21/18 14:10 Pulse Rate 69 07/21/18 14:10 Respiratory Rate 18 07/21/18 10:57 Blood Pressure 131/54 L 07/21/18 14:10 O2 Sat by Pulse Oximetry (%) 98 07/20/18 21:00 Constitutional: Yes: Well Nourished, No Distress, Calm Cardiovascular: Yes: Regular Rate and Rhythm. No: Gallop, Murmur, Rub Respiratory: Yes: Regular, CTA Bilaterally. No: Rales, Rhonchi, Wheezes Gastrointestinal: Yes: Normal Bowel Sounds, Soft. No: Distention, Tenderness Extremities: Yes: WNL Edema: No Labs: CBC, BMP 07/21/18 07:00 07/21/18 07:00 INR, PTT INR 1.22 (0.83-1.09) H 07/17/18 15:20 Problem List - Problems (1) Osteomyelitis Code(s): M86.9 - OSTEOMYELITIS, UNSPECIFIED Qualifiers: Osteomyelitis type: acute hematogenous Osteomyelitis location: foot Laterality: left Qualified Code(s): M86.072 - Acute hematogenous osteomyelitis , left ankle and foot (2) Amputated right leg Code(s): Z89.611 - ACQUIRED ABSENCE OF RIGHT LEG ABOVE KNEE (3) Chronic renal disease, stage 3, moderately decreased glomerular filtration rate (GFR) between 30-59 mL/min/1.73 square meter Code(s): N18.3 - CHRONIC KIDNEY DISEASE, STAGE 3 (MODERATE) (4) HTN (hypertension) Code(s): I10 - ESSENTIAL (PRIMARY) HYPERTENSION (5) Lupus (systemic lupus erythematosus) Code(s): M32.9 - SYSTEMIC LUPUS ERYTHEMATOSUS, UNSPECIFIED (6) PVD (peripheral vascular disease) Code(s): I73.9 - PERIPHERAL VASCULAR DISEASE, UNSPECIFIED Assessment/Plan (1) Osteomyelitis Assessment/Plan: -CT scan reviewed -safe for discharge on doxycycline per ID Code(s): M86.9 - OSTEOMYELITIS, UNSPECIFIED Qualifiers: Osteomyelitis type: acute hematogenous Osteomyelitis location: foot Laterality: left Qualified Code(s): M86.072 - Acute hematogenous osteomyelitis , left ankle and foot (2) Amputated right leg Assessment/Plan: -noted Code(s): Z89.611 - ACQUIRED ABSENCE OF RIGHT LEG ABOVE KNEE (3) Chronic renal disease, stage 3, moderately decreased glomerular filtration rate (GFR) between 30-59 mL/min/1.73 square meter Assessment/Plan: -baseline Code(s): N18.3 - CHRONIC KIDNEY DISEASE, STAGE 3 (MODERATE) (4) HTN (hypertension) Assessment/Plan: -continue labetalol and procardia Code(s): I10 - ESSENTIAL (PRIMARY) HYPERTENSION (5) Lupus (systemic lupus erythematosus) Assessment/Plan: -will hold plaquenal in active infection -can restart plaquenal on discharge -continue prednisone Code(s): M32.9 - SYSTEMIC LUPUS ERYTHEMATOSUS, UNSPECIFIED (6) PVD (peripheral vascular disease) Assessment/Plan: -plavix stopped per patient -continue aspirin -appreciate vascular surgery assistance Code(s): I73.9 - PERIPHERAL VASCULAR DISEASE, UNSPECIFIED (7) Diarrhea -on antibiotics -also with leukocytosis -will check stool for c diff Dispo -possible discharge tomorrow if c diff negative -planned for discharge today, but unable -sent clindamycin and oral vancomycin to pharmacy, called and cancelled and she will not be on these -discharge on doxycycline, consider flagyl if diarrhea dose not improve
[2018-07-21] MEDS: traMADol HCL 50 MG TABLET PO PRN (21:41)
[2018-07-22] MEDS ORDERED: PT OWN MED DRAWER 7, Y5N ONE ×2 (02:01→21:27)
[2018-07-22] MEDS: AZTREONAM 1 GM in DEXTROSE 5%-WATER - 50 ML IVPB SCH ×2 (02:02→10:46)
[2018-07-22] MEDS: GABAPENTIN 300 MG CAPSULE (FP) PO SCH ×3 (06:52→21:31)
[2018-07-22] MEDS: INDOMETHACIN 50 MG CAPSULE PO SCH ×3 (06:52→21:31)
[2018-07-22 07:27] LABS: BASO % 0.5 % (0-2.0); EOS % 1.3 % (0-4.5); HEMATOCRIT 28.2 % (32.4-45.2); HEMOGLOBIN 9.2 GM/dL (10.7-15.3); LYMPH % 11.6 % (8-40); MCH 26.2 pg (25.7-33.7); MCHC 32.8 g/dl (32.0-36.0); MEAN PLT VOLUME 8.4 fl (7.5-11.1); MONO % 8.3 % (3.8-10.2); NEUT % 78.3 % (42.8-82.8); PLATELET COUNT 390 K/MM3 (134-434); RBC 3.53 M/mm3 (3.60-5.2); RDW 16.8 % (11.6-15.6); WHITE BLOOD COUNT 20.4 K/mm3 (4.0-10.0)
[2018-07-22 07:40] LABS: ANION GAP 7 MMOL/L (8-16); BLOOD UREA NITROGEN 27 mg/dL (7-18); CALCIUM 9.7 mg/dL (8.5-10.1); CHLORIDE 106 mmol/L (98-107); CO2 25 mmol/L (21-32); CREATININE 1.1 mg/dL (0.55-1.3); GLUCOSE,RANDOM 91 mg/dL (74-106); MAGNESIUM 2.2 mg/dL (1.8-2.4); PHOSPHOROUS 4.6 mg/dL (2.5-4.9); POTASSIUM 4.5 mmol/L (3.5-5.1); SODIUM 139 mmol/L (136-145)
[2018-07-22] MEDS: SERTRALINE HCL 50 MG TABLET (FP) PO SCH (10:45)
[2018-07-22] MEDS: VITAMIN B COMPLEX W/C COMBO TABLET (FP) PO SCH (10:45)
[2018-07-22] MEDS: LABETALOL HCL 200 MG TABLET (FP) PO SCH ×2 (10:45→21:31)
[2018-07-22] MEDS: FERROUS SO4 325 MG TABLET (FP) PO SCH (10:45)
[2018-07-22] MEDS: MULTIVITAMINS (DAILY MVI) TABLET (FP) PO SCH (10:45)
[2018-07-22] MEDS: LACTOBACILLUS ACIDOPHILUS 1 TABLET PO SCH (10:45)
[2018-07-22] MEDS: ASPIRIN 81 MG CHEWABLE TABLETS PO SCH (10:45)
[2018-07-22] MEDS: predniSONE 5 MG TABLET (UD) PO SCH (10:45)
[2018-07-22] MEDS: RANITIDINE HCL 150 MG TABLET (FP) PO SCH (10:45)
[2018-07-22] MEDS: CALCIUM (OYSTER SHELL) 500 MG TABLET (FP) PO SCH ×2 (10:45→21:31)
[2018-07-22] MEDS: MAGNESIUM CL 64 MG TABLET.SA PO SCH (10:46)
[2018-07-22] MEDS: NIFEdipine E.R 60 MG TABLET (UD) PO SCH ×2 (10:46→21:32)
[2018-07-22 10:51] LABS: ANISOCYTOSIS 0; MACROCYTOSIS 0; PLATELET ESTIMATE NORMAL
--- NOTE | 2018-07-22 12:54 | PN ---
Progress Note (short form) - Note Progress Note: FUV left foot. Not feeling great today. vss, Tmax 98.6 wbc=20.4, crp 13.0, uric acid 4.5, +improved erythema, no open wounds, +c. dificile arthralgia lupus cellulitis/abscess? cdificuile Discussed with Dr. Cervantes. PO vancomycin. Will follow. No dressing left foot necessary.
--- NOTE | 2018-07-22 13:18 | PN ---
Progress Note, Physician History of Present Illness: stable no new issues wbc increased no c/o of dirrhoea today - Current Medication List Current Medications: Active Medications Acetaminophen (Tylenol -) 650 mg PO Q4H PRN PRN Reason: FEVER Last Admin: 07/21/18 10:35 Dose: 650 mg Al Hydroxide/Mg Hydroxide (Mylanta Oral Suspension -) 30 ml PO Q6H PRN PRN Reason: DYSPEPSIA Last Admin: 07/19/18 15:06 Dose: 30 ml Aspirin (Asa -) 81 mg PO DAILY [facility] Last Admin: 07/22/18 10:45 Dose: 81 mg Calcium Carbonate (Os-Ryan 500mg -) 1,000 mg PO BID [facility] Last Admin: 07/22/18 10:45 Dose: 1,000 mg Doxycycline Hyclate (Vibramycin -) 100 mg PO BID@1000,1800 [facility] Ferrous Sulfate (Feosol -) 325 mg PO DAILY [facility] Last Admin: 07/22/18 10:45 Dose: 325 mg Gabapentin (Neurontin -) 600 mg PO TID [facility] Last Admin: 07/22/18 06:52 Dose: 600 mg Vancomycin HCl 1,000 mg/ (Dextrose) 250 mls @ 166.667 mls/hr IVPB Q12H [facility]; Protocol Indomethacin (Indocin -) 50 mg PO TID [facility] Last Admin: 07/22/18 06:52 Dose: 50 mg Labetalol HCl (Normodyne -) 200 mg PO BID [facility] Last Admin: 07/22/18 10:45 Dose: 200 mg Lactobacillus Acidophilus (Bacid -) 1 tab PO DAILY [facility] Last Admin: 07/22/18 10:45 Dose: 1 tab Magnesium Chloride (Slow-Mag -) 64 mg PO DAILY [facility] Last Admin: 07/22/18 10:46 Dose: 64 mg Multivitamins (Total B With C -) 1 each PO DAILY [facility] Last Admin: 07/22/18 10:45 Dose: 1 each Multivitamins/Minerals/Vitamin C (Tab-A-Vit -) 1 tab PO DAILY [facility] Last Admin: 07/22/18 10:45 Dose: 1 tab Nifedipine (Procardia Xl -) 60 mg PO BID [facility] Last Admin: 07/22/18 10:46 Dose: 60 mg Prednisone (Deltasone -) 5 mg PO DAILY [facility] Last Admin: 07/22/18 10:45 Dose: 5 mg Ranitidine HCl (Zantac -) 150 mg PO DAILY [facility] Last Admin: 07/22/18 10:45 Dose: 150 mg Sertraline HCl (Zoloft -) 50 mg PO DAILY [facility] Last Admin: 07/22/18 10:45 Dose: 50 mg Tramadol HCl (Ultram -) 50 mg PO Q8H PRN PRN Reason: PAIN LEVEL 6-10 Last Admin: 07/21/18 21:41 Dose: 50 mg Vancomycin HCl (Vancomycin Oral Solution) 125 mg PO Q6HPO [facility] - Objective Vital Signs: Vital Signs Temperature 98.6 F 07/22/18 08:40 Pulse Rate 78 07/22/18 08:40 Respiratory Rate 20 07/22/18 08:40 Blood Pressure 144/74 07/22/18 08:40 O2 Sat by Pulse Oximetry (%) 98 07/22/18 10:00 Constitutional: Yes: No Distress, Calm Cardiovascular: Yes: Regular Rate and Rhythm Respiratory: Yes: Regular, CTA Bilaterally Gastrointestinal: Yes: Normal Bowel Sounds, Soft Musculoskeletal: Yes: WNL Extremities: Yes: Erythema (improved), Other Neurological: Yes: Alert, Oriented Psychiatric: Yes: Alert, Oriented Labs: CBC, BMP 07/22/18 07:00 07/22/18 07:00 INR, PTT INR 1.22 (0.83-1.09) H 07/17/18 15:20 Assessment/Plan roblem List - Problems (1) Osteomyelitis Code(s): M86.9 - OSTEOMYELITIS, UNSPECIFIED Qualifiers: Osteomyelitis type: acute hematogenous Osteomyelitis location: foot Laterality: left Qualified Code(s): M86.072 - Acute hematogenous osteomyelitis , left ankle and foot (2) Amputated right leg Code(s): Z89.611 - ACQUIRED ABSENCE OF RIGHT LEG ABOVE KNEE (3) Chronic renal disease, stage 3, moderately decreased glomerular filtration rate (GFR) between 30-59 mL/min/1.73 square meter Code(s): N18.3 - CHRONIC KIDNEY DISEASE, STAGE 3 (MODERATE) (4) HTN (hypertension) Code(s): I10 - ESSENTIAL (PRIMARY) HYPERTENSION (5) Lupus (systemic lupus erythematosus) Code(s): M32.9 - SYSTEMIC LUPUS ERYTHEMATOSUS, UNSPECIFIED (6) PVD (peripheral vascular disease) Code(s): I73.9 - PERIPHERAL VASCULAR DISEASE, UNSPECIFIED Assessment/Plan continue current mgmt continue oral vanco monitor wbc hydration rest as per the team
--- NOTE | 2018-07-22 14:13 | PN ---
Physical Exam: SUBJECTIVE: Patient seen and examined, denies any foot pain, reports lower abdominal pain at the site of heparin injections. Diarrhea resolved, tolerating diet well. OBJECTIVE: Vital Signs Period Temp Pulse Resp BP Sys/[place] Pulse Ox Last 24 Hr 98.4 F-98.6 F 66-78 20-20 120-144/51-80 98-98 GENERAL: The patient is awake, alert, and fully oriented, in no acute distress. HEAD: Normal with no signs of trauma. EYES: PERRL, extraocular movements intact, sclera anicteric, conjunctiva clear. No ptosis. ENT: Ears normal, nares patent, oropharynx clear without exudates, moist mucous membranes. NECK: Trachea midline, full range of motion, supple. LUNGS: Breath sounds equal, clear to auscultation bilaterally, no wheezes, no crackles, no accessory muscle use. HEART: Regular rate and rhythm, S1, S2 ABDOMEN: soft, ND, positive bowel sounds, superficial induration with tenderness and ecchymosis in lower abdominal region, no deep tenderness, no voluntary or involuntary guarding or rigidity, positive bowel sounds EXTREMITIES: Right AKA, left foot with no swelling, indurated area over medial left sole with no erythema or tenderness PSYCH: Normal mood, normal affect. SKIN: Warm, dry, normal turgor, no rashes or lesions noted Laboratory Results - last 24 hr 07/22/18 07/22/18 07:00 07:00 WBC 20.4 H RBC 3.53 L Hgb 9.2 L Hct 28.2 L MCV 80.0 MCH 26.2 MCHC 32.8 RDW 16.8 H Plt Count 390 Neutrophils % 78 .3 Neutrophils % (Manual) 80.6 Band Neutrophils % 1.9 Lymphocytes % 11.6 Lymphocytes % (Manual) 9.7 Monocytes % 8.3 Monocytes % (Manual) 7 Eosinophils % 1.3 Eosinophils % (Manual) 0.0 Basophils % 0.5 Basophils % (Manual) 1.0 Myelocytes % (Man) 0 D Promyelocytes % (Man) 0 Blast Cells % (Manual) 0 Nucleated RBC % 0 Metamyelocytes 0 Hypochromia 0 Platelet Estimate Normal Polychromasia 0 Poikilocytosis 0 Anisocytosis 0 Microcytosis 0 Macrocytosis 0 Sodium 139 Potassium 4.5 Chloride 106 Carbon Dioxide 25 Anion Gap 7 L BUN 27 H Creatinine 1.1 Creat Clearance w eGFR 48.82 Random Glucose 91 Calcium 9.7 Phosphorus 4.6 Magnesium 2.2 Active Medications Home Medications Medication Instructions Recorded Hydroxychloroquine Sulfate 200 mg PO DAILY 10/20/15 [Plaquenil] Nifedipine [Procardia Xl] 60 mg PO BID 10/20/15 predniSONE [Deltasone -] 5 mg PO DAILY 10/20/15 Iron,Carbonyl [Feosol] 65 mg PO DAILY 11/20/15 Vitamin B Complex [B Complex # 1] 1 each PO DAILY 11/20/15 Labetalol HCl 200 mg PO BID 07/22/17 Calcium Carbonate [Calcium] 1,000 mg PO DAILY 05/17/18 Famotidine [Pepcid] 20 mg PO DAILY 05/17/18 Gabapentin [Neurontin -] 600 mg PO TID 05/17/18 Magnesium Chloride [Slow-Mag -] 64 mg PO DAILY 05/17/18 Multivit-Min36/Iron/Folic Acid 1 each PO DAILY 05/17/18 [Geritol Complete Tablet] Aspirin [ASA -] 81 mg PO DAILY tab.chew 06/01/18 Tramadol HCl [Ultram] 50 mg PO DAILY #14 tablet MDD 1 06/04/18 Clindamycin [Cleocin -] 300 mg PO Q6HPO #20 capsule 07/21/18 Lactobacillus Acidophilus [Bacid -] 1 tab PO DAILY #30 tab 07/21/18 Sertraline HCl [Zoloft -] 50 mg PO DAILY #30 tablet 07/21/18 Vancomycin HCl [Vancocin HCl] 125 mg PO QID #28 capsule 07/21/18 Active Medications Acetaminophen (Tylenol -) 650 mg PO Q4H PRN PRN Reason: FEVER Last Admin: 07/21/18 10:35 Dose: 650 mg Al Hydroxide/Mg Hydroxide (Mylanta Oral Suspension -) 30 ml PO Q6H PRN PRN Reason: DYSPEPSIA Last Admin: 07/19/18 15:06 Dose: 30 ml Aspirin (Asa -) 81 mg PO DAILY [facility] Last Admin: 07/22/18 10:45 Dose: 81 mg Calcium Carbonate (Os-Ryan 500mg -) 1,000 mg PO BID [facility] Last Admin: 07/22/18 10:45 Dose: 1,000 mg Doxycycline Hyclate (Vibramycin -) 100 mg PO BID@1000,1800 [facility] Ferrous Sulfate (Feosol -) 325 mg PO DAILY [facility] Last Admin: 07/22/18 10:45 Dose: 325 mg Gabapentin (Neurontin -) 600 mg PO TID [facility] Last Admin: 07/22/18 13:49 Dose: 600 mg Vancomycin HCl 1,000 mg/ (Dextrose) 250 mls @ 166.667 mls/hr IVPB Q12H [facility]; Protocol Indomethacin (Indocin -) 50 mg PO TID [facility] Last Admin: 07/22/18 13:49 Dose: 50 mg Labetalol HCl (Normodyne -) 200 mg PO BID [facility] Last Admin: 07/22/18 10:45 Dose: 200 mg Lactobacillus Acidophilus (Bacid -) 1 tab PO DAILY [facility] Last Admin: 07/22/18 10:45 Dose: 1 tab Magnesium Chloride (Slow-Mag -) 64 mg PO DAILY [facility] Last Admin: 07/22/18 10:46 Dose: 64 mg Multivitamins (Total B With C -) 1 each PO DAILY [facility] Last Admin: 07/22/18 10:45 Dose: 1 each Multivitamins/Minerals/Vitamin C (Tab-A-Vit -) 1 tab PO DAILY [facility] Last Admin: 07/22/18 10:45 Dose: 1 tab Nifedipine (Procardia Xl -) 60 mg PO BID [facility] Last Admin: 07/22/18 10:46 Dose: 60 mg Prednisone (Deltasone -) 5 mg PO DAILY [facility] Last Admin: 07/22/18 10:45 Dose: 5 mg Ranitidine HCl (Zantac -) 150 mg PO DAILY [facility] Last Admin: 07/22/18 10:45 Dose: 150 mg Sertraline HCl (Zoloft -) 50 mg PO DAILY [facility] Last Admin: 07/22/18 10:45 Dose: 50 mg Tramadol HCl (Ultram -) 50 mg PO Q8H PRN PRN Reason: PAIN LEVEL 6-10 Last Admin: 07/21/18 21:41 Dose: 50 mg Vancomycin HCl (Vancomycin Oral Solution) 125 mg PO Q6HPO [facility] CT LE results reviewed Microbiology 07/21/18 20:50 Stool Clostridioides difficile Antigen - Final 07/21/18 20:50 Stool Clostridioides difficile Toxin Assay - Final 07/17/18 15:27 Blood - Peripheral Venous Blood Culture - Preliminary NO GROWTH OBTAINED AFTER 96 HOURS, INCUBATION TO CONTINUE FOR 1 DAYS. 07/17/18 15:20 Blood - Peripheral Venous Blood Culture - Preliminary NO GROWTH OBTAINED AFTER 96 HOURS, INCUBATION TO CONTINUE FOR 1 DAYS. ASSESSMENT/PLAN: 73 yof with PMHx of Lupus since 1978 on Prednisone/plaquenil, PAD s/p right AKA 1996/s/p iliac stents (last in 2010) ?lupus nephritis, CKD (recent Cr 1.2), Anemia, lymphadenopathy (benign per records), HTN, HLD, recently admitted with LLE cellulitis/abscess s/p I&D, readmitted with left foot redness and increased pain. -Left foot cellulitis (recent left metatarsal wound incision and I&D) -Acute C difficile diarrhea -PAD s/p Left tibial artery atherectomy/angioplasty x 2 05/20/2018 -Lupus since 1978 on prednisone/Plaquenil -PAD s/p right AKA 1996, PCI last in 2010 -CKD (?lupus nephritis) -Anemia -Lymphadenopathy -HTN -HLD Plan: Diarrhea improved. WBC rising, start oral vancomycin. D/c aztreonam/vancomycin. Change to doxycycline for [address] LE and podiatry input noted. Patient's insurance called ([phone]). Oral vancomycin approved for 21 days (Ref # [id number]) Check CT A/P given significant leucocytosis Hold plaquenil. COntinue prednisone with close monitoring. Continue ASA/Labetalol/nifedipine. Psychiatry input noted. Continue sertraline. DVTPPX heparin Dispo home in 24 hours on oral vancomycin if WBC improved, no further diarrhea and non concerning CT A/P Plan discussed with patient and nursing. All questions answered. Total time spent including patient visit, pre-authorization with insurance and co-ordination of care 40 min. Visit type - Emergency Visit Emergency Visit: Yes ED Registration Date: 07/17/18 Care time: The patient presented to the Emergency Department on the above date and was hospitalized for further evaluation of their emergent condition. - New Patient This patient is new to me today: Yes Date on this admission: 07/22/18 - Critical Care Critical Care patient: No - Discharge Referral Referred to [facility] No
[2018-07-22] MEDS: VANCOMYCIN 1,000 MG in DEXTROSE 5%-WATER - 250 ML IVPB SCH ×3 (14:17→14:19)
[2018-07-22] MEDS: VANCOMYCIN 250 MG/5 ML ORAL SOLUTION PO SCH ×2 (17:56→23:59)
[2018-07-22] MEDS: DOXYCYCLINE HYCLATE 100 MG CAPSULE PO SCH (17:57)
[2018-07-22] MEDS: traMADol HCL 50 MG TABLET PO PRN (21:32)
[2018-07-23] MEDS: INDOMETHACIN 50 MG CAPSULE PO SCH (06:23)
[2018-07-23] MEDS: GABAPENTIN 300 MG CAPSULE (FP) PO SCH (06:23)
[2018-07-23] MEDS: VANCOMYCIN 250 MG/5 ML ORAL SOLUTION PO SCH ×2 (06:24→11:58)
[2018-07-23 07:38] LABS: BASO % 0.7 % (0-2.0); HEMATOCRIT 27.9 % (32.4-45.2); HEMOGLOBIN 8.8 GM/dL (10.7-15.3); LYMPH % 13.7 % (8-40); MCH 24.8 pg (25.7-33.7); MCHC 31.5 g/dl (32.0-36.0); MEAN CELL VOLUME 78.8 fl (80-96); MEAN PLT VOLUME 8.3 fl (7.5-11.1); MONO % 9.5 % (3.8-10.2); NEUT % 74.1 % (42.8-82.8); PLATELET COUNT 409 K/MM3 (134-434); RBC 3.54 M/mm3 (3.60-5.2); RDW 16.9 % (11.6-15.6); WHITE BLOOD COUNT 18.8 K/mm3 (4.0-10.0)
[2018-07-23 08:01] LABS: ANION GAP 10 MMOL/L (8-16); BLOOD UREA NITROGEN 29 mg/dL (7-18); CALCIUM 9.3 mg/dL (8.5-10.1); CHLORIDE 104 mmol/L (98-107); CO2 24 mmol/L (21-32); CREATININE 1.2 mg/dL (0.55-1.3); GLUCOSE,RANDOM 126 mg/dL (74-106); POTASSIUM 4.2 mmol/L (3.5-5.1); SODIUM 138 mmol/L (136-145)
[2018-07-23] MEDS: ASPIRIN 81 MG CHEWABLE TABLETS PO SCH (09:10)
[2018-07-23] MEDS: DOXYCYCLINE HYCLATE 100 MG CAPSULE PO SCH (09:10)
[2018-07-23] MEDS: SERTRALINE HCL 50 MG TABLET (FP) PO SCH ×3 (09:10→09:19)
[2018-07-23] MEDS: LABETALOL HCL 200 MG TABLET (FP) PO SCH (09:10)
[2018-07-23] MEDS: VITAMIN B COMPLEX W/C COMBO TABLET (FP) PO SCH (09:10)
[2018-07-23] MEDS: RANITIDINE HCL 150 MG TABLET (FP) PO SCH ×2 (09:10→09:20)
[2018-07-23] MEDS: MULTIVITAMINS (DAILY MVI) TABLET (FP) PO SCH (09:10)
[2018-07-23] MEDS: FERROUS SO4 325 MG TABLET (FP) PO SCH (09:10)
[2018-07-23] MEDS: LACTOBACILLUS ACIDOPHILUS 1 TABLET PO SCH (09:10)
[2018-07-23] MEDS: predniSONE 5 MG TABLET (UD) PO SCH (09:10)
[2018-07-23] MEDS: CALCIUM (OYSTER SHELL) 500 MG TABLET (FP) PO SCH (09:13)
[2018-07-23] MEDS: NIFEdipine E.R 60 MG TABLET (UD) PO SCH (09:14)
[2018-07-23] MEDS: MAGNESIUM CL 64 MG TABLET.SA PO SCH (09:14)
--- NOTE | 2018-07-23 10:47 | DS ---
Physical Exam: SUBJECTIVE: Patient seen and examined, diarrhea improved. tolerating diet. No nausea, vomiting, abdominal pain, leg pain, fevers or chills. OBJECTIVE: Vital Signs Period Temp Pulse Resp BP Sys/H[place]go Pulse Ox Last 24 Hr 98.4 F-98.7 F 70-72 20-20 128-140/58-75 98 PHYSICAL EXAM GENERAL: The patient is awake, alert, and fully oriented, in no acute distress. HEAD: Normal with no signs of trauma. EYES: PERRL, extraocular movements intact, sclera anicteric, conjunctiva clear. No ptosis. ENT: Ears normal, nares patent, oropharynx clear without exudates, moist mucous membranes. NECK: Trachea midline, full range of motion, supple. LUNGS: Breath sounds equal, clear to auscultation bilaterally, no wheezes, no crackles, no accessory muscle use. HEART: Regular rate and rhythm, S1, S2 ABDOMEN: soft, ND, positive bowel sounds, superficial induration with tenderness and ecchymosis in lower abdominal region, no deep tenderness, no voluntary or involuntary guarding or rigidity, positive bowel sounds EXTREMITIES: Right AKA, left foot with no swelling, indurated area over medial left sole with no erythema or tenderness, unchanged exam from yesterday PSYCH: Normal mood, normal affect. SKIN: Warm, dry, normal turgor, no rashes or lesions noted LABS Laboratory Results - last 24 hr 07/22/18 07/23/18 07/23/18 07:00 06:50 06:50 WBC 18.8 H RBC 3.54 L Hgb 8.8 L Hct 27.9 L MCV 78.8 L MCH 24.8 L MCHC 31.5 L RDW 16.9 H Plt Count 409 MPV 8.3 Absolute Neuts (auto) 13.9 H Neutrophils % 74.1 Neutrophils % (Manual) 80.6 Band Neutrophils % 1.9 Lymphocytes % 13.7 Lymphocytes % (Manual) 9.7 Monocytes % 9.5 Monocytes % (Manual) 7 Eosinophils % 2.0 Eosinophils % (Manual) 0.0 Basophils % 0.7 Basophils % (Manual) 1.0 Myelocytes % (Man) 0 D Promyelocytes % (Man) 0 Blast Cells % (Manual) 0 Nucleated RBC % 0 Metamyelocytes 0 Hypochromia 0 Platelet Estimate Normal Polychromasia 0 Poikilocytosis 0 Anisocytosis 0 Microcytosis 0 Macrocytosis 0 Sodium 138 Potassium 4.2 Chloride 104 Carbon Dioxide 24 Anion Gap 10 BUN 29 H Creatinine 1.2 Creat Clearance w eGFR 44.16 Random Glucose 126 H Calcium 9.3 Microbiology 07/17/18 15:20 Blood - Peripheral Venous Blood Culture - Final NO GROWTH AFTER 5 DAYS INCUBATION 07/21/18 20:50 Stool Clostridioides difficile Antigen - Final 07/21/18 20:50 Stool Clostridioides difficile Toxin Assay - Final 07/17/18 15:27 Blood - Peripheral Venous Blood Culture - Preliminary NO GROWTH OBTAINED AFTER 96 HOURS, INCUBATION TO CONTINUE FOR [address] LE - Multiplanar imaging was performed. As requested intravenous contrast was not administered. No definite drainable fluid collection is identified on the basis of noncontrast imaging. There is no definite evidence of osteomyelitis within the limitations of CT. If clinically indicated correlate with MRI or follow-up three - phase radionuclide bone scan. There is possible diminished subcutaneous edema in comparison to a prior CT study of 05/24/2018. Impression: As noted above. CT A/P: Clinical information: C. difficile diarrhea, high white blood count; history of acute kidney injury Multiplanar imaging was performed. No intravenous or enteric contrast was administered. No evidence of pneumoperitoneum, abscess, free intraperitoneal fluid or bowel obstruction. There is no definite CT evidence of acute colitis. Sigmoid diverticulosis is noted without evidence of acute diverticulitis. The appendix appears unremarkable. No gross noncontrast small bowel pathology is identified. In comparison to a prior CT study of 03/26/2017 note is made of minimal right hydronephrosis which has improved since the previous study. Note is again made of a right nephroureteral stent in place. Mild right renal atrophy. There is no left hydronephrosis. No evidence of urolithiasis. Development of mild focal right lower abdominal subcutaneous increased density seen possibly representing an injection site. Correlate clinically. The remainder of the exam demonstrates no definite interval change. Note is again made of several homogeneous stable mildly enlarged retroperitoneal and bilateral pelvic lymph nodes. The liver, spleen, pancreas, adrenal glands and left kidney demonstrate no discrete noncontrast abnormality. The gallbladder is moderately contracted probably on a physiologic basis. No obvious opaque biliary calculus is visualized. There is no aortic aneurysm. Bilateral common iliac artery stents in place. The visualized osseous structures demonstrate no obvious acute abnormality IMPRESSION: no definite CT evidence of acute colitis. Mild to moderate colitis may not be demonstrable on CT. Sigmoid diverticulosis is noted without evidence of acute diverticulitis. In comparison to a 2017 CT study note is made of minimal right hydronephrosis which has improved since the previous exam. A right nephroureteral ureteral stent is again seen in place. Mild stable retroperitoneal and bilateral pelvic lymphadenopathy is seen. Bilateral common iliac artery stents in place. HOSPITAL COURSE: Date of Admission:07/17/18 Date of Discharge: 07/23/18 Minutes to complete discharge: 40 Discharge Summary Reason For Visit: INFECTION OF LEFT FOOT Current Active Problems Left foot infection (Acute) PVD (peripheral vascular disease) (Acute) Vomiting (Acute) Hospital Course: 73 yof with PMHx of Lupus since 1978 on Prednisone/plaquenil, PAD s/p right AKA 1997/s/p iliac stents (last in 2010) ?lupus nephritis, CKD (recent Cr 1.2), Anemia, lymphadenopathy (benign per records), HTN, HLD, recently admitted with LLE cellulitis/abscess s/p I&D, readmitted with left foot redness and increased pain. She was placed on aztreonam and vancomcyn. Infectious disease and Podiatry were consulted. She had CT scan of lower extermities that was negative for fluid collection or abscess. She had diarrhea with rising WBC and was found with C difficile positve antigen and neg toxin. She had CT scan Abdomen/Pelvis that was negative for concerns or colitis. Given clinical symptoms, she was started on oral vancomycin and C difficile PCR has been sent. She was transitioned to doxycycline for 1 week and placed on 3 weeks of oral vancomycin. Her vancomycin was pre-authorized by her insurance and as discussed with pharmacy, patient would have co-pay of around $150 which she agreed to pay. She will be discharged in stable condition with outpatient follow up with wound care , podiatry, ID and PCP. Condition: Stable - Instructions Diet, Activity, Other Instructions: resume previous diet and activity and weight bearing on left leg per instructions by Dr. Daniels MEDICATIONS: New medications; Doxycycline 100 mg twice daily for 6 more days Vancomycin 125 mg 4 times daily for 20 more days Please discuss with your doctor about resumption of plaquenil. Continue other home medications as before FOLLOW UP: With Dr. Daniels in 1 week at wound center. With Dr. Cervantes in 1 week With PCP in 1 week Blood work CBC (Complete blood count) in 1 week with your doctor. Your C difficile confirmatory test (PCR) is currently pending. You can have your PCP or Dr. Cervantes follow up on the results. Please avoid direct sun exposure, tanning while on doxycycline. If you notice any worsening leg pain, diarrhea, fevers, chills, dark or bloody stools or any new concerns, please call 911 or come to the ED. Referrals: Maggie Cervantes MD [Staff Physician] - Yaya Montoya MD [Primary Care Provider] - Disposition: VNS/HOME HEALTH CARE - Home Medications Comprehensive Discharge Medication List: Ambulatory Orders Hydroxychloroquine Sulfate [Plaquenil] 200 mg PO DAILY 10/20/15 Nifedipine [Procardia Xl] 60 mg PO BID 10/20/15 predniSONE [Deltasone -] 5 mg PO DAILY 10/20/15 Iron,Carbonyl [Feosol] 65 mg PO DAILY 11/20/15 Vitamin B Complex [B Complex # 1] 1 each PO DAILY 11/20/15 Labetalol HCl 200 mg PO BID 07/22/17 Calcium Carbonate [Calcium] 1,000 mg PO DAILY 05/17/18 Famotidine [Pepcid] 20 mg PO DAILY 05/17/18 Gabapentin [Neurontin -] 600 mg PO TID 05/17/18 Magnesium Chloride [Slow-Mag -] 64 mg PO DAILY 05/17/18 Multivit-Min36/Iron/Folic Acid [Geritol Complete Tablet] 1 each PO DAILY Aspirin [ASA -] 81 mg PO DAILY tab.chew 06/01/18 Tramadol HCl [Ultram] 50 mg PO DAILY #14 tablet MDD 1 06/04/18 Lactobacillus Acidophilus [Bacid -] 1 tab PO DAILY #30 tab 07/21/18 Sertraline HCl [Zoloft -] 50 mg PO DAILY #30 tablet 07/21/18 Doxycycline Hyclate [Vibramycin -] 100 mg PO BID@1000,1800 6 Days #12 capsule Vancomycin HCl [Vancocin HCl] 125 mg PO QID 20 Days #80 capsule 07/23/18 This patient is new to me today: No Emergency Visit: Yes ED Registration Date: 07/17/18 Care time: The patient presented to the Emergency Department on the above date and was hospitalized for further evaluation of their emergent condition. Critical Care patient: No - Discharge Referral Referred to [facility] Med [facility] No
[2018-07-23 11:34] VITALS: BP 149/57; PULSE 76; TEMP 99.1
== END 2018-07-23 14:54 | disposition home health service (06) | DRG 74 ==
LOC: JER 13:26 → SUPCPDRO 13:26 → JERBED 17:23 → J6S 21:08
PROVIDERS: ADMIT Internal Medicine; ATTEND Hospitalist
DX: E11.610 Type 2 diabetes mellitus with diabetic neuropathic arthropathy (principal); M86.8X7 Other osteomyelitis, ankle and foot; M86.072 Acute hematogenous osteomyelitis, left ankle and foot; A04.72 Enterocolitis due to Clostridium difficile, not specified as recurrent; M32.9 Systemic lupus erythematosus, unspecified; E78.5 Hyperlipidemia, unspecified; I25.10 Atherosclerotic heart disease of native coronary artery without angina pectoris; K21.9 Gastro-esophageal reflux disease without esophagitis; E11.51 Type 2 diabetes mellitus with diabetic peripheral angiopathy without gangrene; I12.9 Hypertensive chronic kidney disease with stage 1 through stage 4 chronic kidney disease, or unspecified chronic kidney disease; E11.22 Type 2 diabetes mellitus with diabetic chronic kidney disease; N18.3 Chronic kidney disease, stage 3 (moderate); E11.69 Type 2 diabetes mellitus with other specified complication; R58 Hemorrhage, not elsewhere classified; S30.1XXA Contusion of abdominal wall, initial encounter; X58.XXXA Exposure to other specified factors, initial encounter; Y92.098 Other place in other non-institutional residence as the place of occurrence of the external cause; R19.7 Diarrhea, unspecified; D64.9 Anemia, unspecified; Z88.0 Allergy status to penicillin; Z89.611 Acquired absence of right leg above knee
CPT/HCPCS: 36415; 71045-TC-FY; 73610-TC-LT-FY; 73630-TC-LT; 73700-TC-RT; 74176-TC; 80048; 80053; 82803; 83605; 83735; 84100; 84484; 84550; 85025; 85610; 85651; 85730; 86140; 87040; 87324; 87449; 87493; 93005; 93010; 97116-GP; 97162-GP; 99284-25; J1644

== ENCOUNTER 2018-07-24 16:30 | Inpatient (IN) | payer BC ==
--- NOTE | 2018-07-24 16:40 | PDOC ---
Rapid Medical Evaluation Medical Evaluation: Allergies Allergy/AdvReac Type Severity Reaction Status Date / Time codeine [Codeine] Allergy Hives Verified 07/17/18 13:29 Penicillins Allergy Hives Verified 07/17/18 13:29 lactose AdvReac Verified 07/17/18 13:29 ranitidine [From Zantac] AdvReac headache Verified 07/17/18 13:29 07/24/18 16:32 I have performed a brief in-person evaluation of this patient. The patient presents with a chief complaint of: Sent in by Dr Montoya for fever of 103 F today and continues to have persistent diarrhea. Pt discharged yesterday after being admitted for cdif. Given rx for doxy and vancomycin but states pharmacy did not give her the vanco for unclear reasons. No abd pain, n/ v at this time. H/o lupus, CKD, anemia, HTN, HLD, R AKA Pertinent physical exam findings:unremarkable I have ordered the following:labs The patient will proceed to the ED for further evaluation. Discharge Disposition - Diagnosis Fever Qualifiers: Fever type: unspecified Qualified Code(s): R50.9 - Fever, unspecified - Referrals - Patient Instructions - Post Discharge Activity
[2018-07-24 16:45] VITALS: BMI 26.9
[2018-07-24 17:18] LABS: BASO % 0.4 % (0-2.0); EOS % 0.4 % (0-4.5); HEMATOCRIT 28.8 % (32.4-45.2); HEMOGLOBIN 9.1 GM/dL (10.7-15.3); LYMPH % 11.5 % (8-40); MCHC 31.6 g/dl (32.0-36.0); MEAN CELL VOLUME 79.2 fl (80-96); MEAN PLT VOLUME 8.1 fl (7.5-11.1); MONO % 6.1 % (3.8-10.2); NEUT % 81.6 % (42.8-82.8); PLATELET COUNT 493 K/MM3 (134-434); RBC 3.64 M/mm3 (3.60-5.2); RDW 17.3 % (11.6-15.6); WHITE BLOOD COUNT 19.5 K/mm3 (4.0-10.0)
[2018-07-24 17:45] LABS: ALBUMIN 2.6 g/dl (3.4-5.0); ALK PHOS 108 U/L (45-117); ANION GAP 9 MMOL/L (8-16); BILIRUBIN,TOTAL 0.2 mg/dL (0.2-1); BLOOD UREA NITROGEN 24 mg/dL (7-18); CALCIUM 9.2 mg/dL (8.5-10.1); CHLORIDE 105 mmol/L (98-107); CO2 24 mmol/L (21-32); CREATININE 1.1 mg/dL (0.55-1.3); GLUCOSE,RANDOM 80 mg/dL (74-106); POTASSIUM 4.4 mmol/L (3.5-5.1); SGOT/AST 18 U/L (15-37); SGPT/ALT 33 U/L (13-61); SODIUM 138 mmol/L (136-145); TOT PROT 7.4 g/dl (6.4-8.2)
--- NOTE | 2018-07-24 17:54 | PDOC ---
History of Present Illness - General Chief Complaint: Cold Symptoms Stated Complaint: FEVER/DIARRHEA Time Seen by Provider: 07/24/18 16:39 - History of Present Illness Initial Comments: The pt is a 73F w/ a history of Lupus, CKD, HTN, HLD, R AKA who was discharged yesterday w/ outpt prescription for c. diff presents today after being febrile to 103 at home and was unable to obtain her vancomycin 2/2 pricing. Endorses continued watery diarrhea w/o blood in stool. Denies vomiting, abdominal pain, chest pain, SOB, mucus in stool, or changes in strength/sensation. 07/24/18 17:50 Past History - Past Medical History Allergies/Adverse Reactions: Allergies Allergy/AdvReac Type Severity Reaction Status Date / Time codeine [Codeine] Allergy Hives Verified 07/24/18 16:42 Penicillins Allergy Hives Verified 07/24/18 16:42 lactose AdvReac Verified 07/24/18 16:42 ranitidine [From Zantac] AdvReac headache Verified 07/24/18 16:42 Home Medications: Ambulatory Orders Hydroxychloroquine Sulfate [Plaquenil] 200 mg PO DAILY 10/20/15 Nifedipine [Procardia Xl] 60 mg PO BID 10/20/15 predniSONE [Deltasone -] 5 mg PO DAILY 10/20/15 Iron,Carbonyl [Feosol] 65 mg PO DAILY 11/20/15 Vitamin B Complex [B Complex # 1] 1 each PO DAILY 11/20/15 Labetalol HCl 200 mg PO BID 07/22/17 Calcium Carbonate [Calcium] 1,000 mg PO DAILY 05/17/18 Famotidine [Pepcid] 20 mg PO DAILY 05/17/18 Gabapentin [Neurontin -] 600 mg PO TID 05/17/18 Magnesium Chloride [Slow-Mag -] 64 mg PO DAILY 05/17/18 Multivit-Min36/Iron/Folic Acid [Geritol Complete Tablet] 1 each PO DAILY Aspirin [ASA -] 81 mg PO DAILY tab.chew 06/01/18 Tramadol HCl [Ultram] 50 mg PO DAILY #14 tablet MDD 1 06/04/18 Lactobacillus Acidophilus [Bacid -] 1 tab PO DAILY #30 tab 07/21/18 Sertraline HCl [Zoloft -] 50 mg PO DAILY #30 tablet 07/21/18 Doxycycline Hyclate [Vibramycin -] 100 mg PO BID@1000,1800 6 Days #12 capsule Vancomycin HCl [Vancocin HCl] 125 mg PO QID 20 Days #80 capsule 07/23/18 Anemia: Yes (chronic) Asthma: No Cancer: No Cardiac Disorders: Yes (Leg stents, CAD, PVD, vasculitis) CVA: No COPD: No CHF: No DVT: Yes (by history) Dementia: No Diabetes: No Dialysis: No GI Disorders: Yes (GERD) Disorders: No HTN: Yes Hypercholesterolemia: Yes Kidney Stones: Yes Liver Disease: No Psychiatric Problems: No Seizures: No Thyroid Disease: No - Surgical History Abdominal Surgery: Yes (10/2015 mass removed-negative) Appendectomy: No Cardiac Surgery: Yes ([facility] OCTOBER 2010 IN LEFT LEG) Cholecystectomy: No Lung Surgery: No Neurologic Surgery: No Orthopedic Surgery: Yes ([place] BUENROSTRO (1996)) - Immunization History Immunization Up to Date: Yes - Suicide/Smoking/Psychosocial Hx Smoking Status: No Smoking History: Never smoked Have you smoked in the past 12 months: No Number of Cigarettes Smoked Daily: 0 If you are a former smoker, when did you quit?: 1979 Information on smoking cessation initiated: No Hx Alcohol Use: No Drug/Substance Use Hx: No Substance Use Type: None Hx Substance Use Treatment: No Review of Systems - Review of Systems Able to Perform ROS?: Yes Comments:: GENERAL/CONSTITUTIONAL: No fever or chills. No weakness HEAD, EYES, EARS, NOSE AND THROAT: No change in vision. No ear pain or discharge. No sore throat CARDIOVASCULAR: No chest pain or shortness of breath RESPIRATORY: Denies cough, hemoptysis GENITOURINARY: No dysuria, frequency, or change in urination MUSCULOSKELETAL: s/p R AKA NEUROLOGIC: No headache, vertigo, loss of consciousness, or change in strength/ sensation ENDOCRINE: No increased thirst. No abnormal weight change ALLERGIC/IMMUNOLOGIC: No hives or skin allergy 07/24/18 17:52 Is the patient limited Bengali proficient: No *Physical Exam - Vital Signs Last Vital Signs Temp Pulse Resp BP Pulse Ox 98.7 F 97 H 18 176/64 H 100 07/24/18 16:40 07/24/18 16:40 07/24/18 16:40 07/24/18 16:40 07/24/18 16:40 - Physical Exam Comments: GENERAL: Awake, alert, and oriented to person/place/time, in no acute distress HEAD: No signs of trauma, normocephalic, atraumatic EYES: PERRLA, EOMI, sclera anicteric, conjunctiva clear ENT: Hearing grossly normal, nares patent, oropharynx clear without exudates. Moist mucosa LUNGS: No distress, speaks full sentences, clear to auscultation bilaterally HEART: Regular rate and rhythm, normal S1 and S2, no murmurs appreciated, peripheral pulses normal and equal bilaterally ABDOMEN: Soft, nontender, normoactive bowel sounds. No guarding, no rebound. No masses EXTREMITIES: s/p R AKA; ambulating in ED NEUROLOGICAL: Cranial nerves II through XII grossly intact. Normal speech, no focal sensorimotor deficits SKIN: Warm, Dry 07/24/18 17:52 ED Treatment Course - LABORATORY CBC & Chemistry Diagram: 07/26/18 07:00 07/26/18 07:00 - ADDITIONAL ORDERS Additional order review: Laboratory Results 07/24/18 17:02 Sodium 138 Potassium 4.4 Chloride 105 Carbon Dioxide 24 Anion Gap 9 BUN 24 H Creatinine 1.1 Creat Clearance w eGFR 48.82 Random Glucose 80 Calcium 9.2 Total Bilirubin 0.2 AST 18 ALT 33 Alkaline Phosphatase 108 Total Protein 7.4 Albumin 2.6 L 07/24/18 17:02 RBC 3.64 MCV 79.2 L MCHC 31.6 L RDW 17.3 H MPV 8.1 Neutrophils % 81.6 Lymphocytes % 11.5 Monocytes % 6.1 Eosinophils % 0.4 Basophils % 0.4 Medical Decision Making - Medical Decision Making The pt is a 73F w/ a history of Lupus, CKD, HTN, HLD who presents for persistent diarrhea 2/2 c. diff and inability to obtain abx from pharmacy ED Course Labs sent UA pending Will order Vanc and Flagyl Placed on contact isolation Plan for admission for abx 07/24/18 17:52 *DC/Admit/Observation/Transfer Diagnosis at time of Disposition: C. difficile diarrhea Fever Qualifiers: Fever type: unspecified Qualified Code(s): R50.9 - Fever, unspecified - Discharge Dispostion Condition at time of disposition: Good Decision to Admit order: Yes - Referrals - Patient Instructions - Post Discharge Activity
--- NOTE | 2018-07-24 18:01 | HP ---
CHIEF COMPLAINT: fever 103 and diarrhea PCP: Dr. Montoya HISTORY OF PRESENT ILLNESS: 73 yof with PMhx of 73 yof with PMHx of Lupus since 1978 on Prednisone/plaquenil , PAD s/p right AKA 1996/s/p iliac stents (last in 2010) ?lupus nephritis, CKD ( recent Cr 1.2), Anemia, lymphadenopathy (benign per records), HTN, HLD, recently admitted with LLE cellulitis/abscess s/p I&D, recently admitted with left leg redness/swelling, treated with aztreonam, hospital course complicated by diarrhea, with C difficile positive antigen and neg toxin, neg CT A/p for infection, discharged yesterday on oral doxycycline and oral vancomycin, reports fevers upto 103 last night, with multiple episodes of brown mucoid diarrhea since last night with decreased oral intake. patient reports was unable to get vancomycin from pharmacy after dc (her vanco was pre-authorized with insurance and confirmed with pharmacy prior to dc) 12 point ROS done, neg for any new left leg redness/swelling or pain. Recent Travel: Denies PAST MEDICAL HISTORY: Lupus since 1978 on Prednisone/plaquenil, PAD s/p right AKA 1996/s/p iliac stents (last in 2010) ?lupus nephritis, CKD (recent Cr 1.2), Anemia, lymphadenopathy (benign per records), HTN, HLD, recently admitted with LLE cellulitis/abscess s/p I&D, recently admitted with left leg redness/swelling , treated with aztreonam, hospital course complicated by diarrhea, with C difficile positive antigen and neg toxin, neg CT A/p for infection, discharged yesterday on oral doxycycline and oral vancomycin, PAST SURGICAL HISTORY: Right ATTILA Social History: Smoking: in her teens, none since Alcohol: never Drugs: never 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 Family History: Allergies codeine [Codeine] Allergy (Verified 07/24/18 16:42) Hives Penicillins Allergy (Verified 07/24/18 16:42) Hives lactose Adverse Reaction (Verified 07/24/18 16:42) ranitidine [From Zantac] Adverse Reaction (Verified 07/24/18 16:42) headache HOME MEDICATIONS: Home Medications Medication Instructions Recorded Hydroxychloroquine Sulfate 200 mg PO DAILY 10/20/15 [Plaquenil] Nifedipine [Procardia Xl] 60 mg PO BID 10/20/15 predniSONE [Deltasone -] 5 mg PO DAILY 10/20/15 Iron,Carbonyl [Feosol] 65 mg PO DAILY 11/20/15 Vitamin B Complex [B Complex # 1] 1 each PO DAILY 11/20/15 Labetalol HCl 200 mg PO BID 07/22/17 Calcium Carbonate [Calcium] 1,000 mg PO DAILY 05/17/18 Famotidine [Pepcid] 20 mg PO DAILY 05/17/18 Gabapentin [Neurontin -] 600 mg PO TID 05/17/18 Magnesium Chloride [Slow-Mag -] 64 mg PO DAILY 05/17/18 Multivit-Min36/Iron/Folic Acid 1 each PO DAILY 05/17/18 [Geritol Complete Tablet] Aspirin [ASA -] 81 mg PO DAILY tab.chew 06/01/18 Tramadol HCl [Ultram] 50 mg PO DAILY #14 tablet MDD 1 06/04/18 Lactobacillus Acidophilus [Bacid -] 1 tab PO DAILY #30 tab 07/21/18 Sertraline HCl [Zoloft -] 50 mg PO DAILY #30 tablet 07/21/18 Doxycycline Hyclate [Vibramycin -] 100 mg PO BID@1000,1800 6 Days #12 07/23/18 capsule Vancomycin HCl [Vancocin HCl] 125 mg PO QID 20 Days #80 capsule 07/23/18 REVIEW OF SYSTEMS CONSTITUTIONAL: Present: fever, chills, diaphoresis Absent: , generalized weakness, malaise, loss of appetite, weight change HEENT: Absent: rhinorrhea, nasal congestion, throat pain, throat swelling, difficulty swallowing, mouth swelling, ear pain, eye pain, visual changes CARDIOVASCULAR: Absent: chest pain, syncope, palpitations, irregular heart rate, lightheadedness , peripheral edema RESPIRATORY: Absent: cough, shortness of breath, dyspnea with exertion, orthopnea, wheezing, stridor, hemoptysis GASTROINTESTINAL: Present: diarrhea Absent: abdominal pain, abdominal distension, nausea, vomiting, constipation, melena, hematochezia GENITOURINARY: Absent: dysuria, frequency, urgency, hesitancy, hematuria, flank pain, genital pain MUSCULOSKELETAL: Absent: myalgia, arthralgia, joint swelling, back pain, neck pain SKIN: Absent: rash, itching, pallor HEMATOLOGIC/IMMUNOLOGIC: Absent: easy bleeding, easy bruising, lymphadenopathy, frequent infections ENDOCRINE: Absent: unexplained weight gain, unexplained weight loss, heat intolerance, cold intolerance NEUROLOGIC: Absent: headache, focal weakness or paresthesias, dizziness, unsteady gait, seizure, mental status changes, bladder or bowel incontinence PSYCHIATRIC: Absent: anxiety, depression, suicidal or homicidal ideation, hallucinations. PHYSICAL EXAMINATION Vital Signs - 24 hr 07/24/18 16:40 Temperature 98.7 F Pulse Rate 97 H Respiratory 18 Rate Blood Pressure 176/64 H O2 Sat by Pulse 100 Oximetry (%) GENERAL: Awake, alert, and fully oriented, in no acute distress. HEAD: Normal with no signs of trauma. EYES: Pupils equal, round and reactive to light, extraocular movements intact, sclera anicteric, conjunctiva clear. No lid lag. EARS, NOSE, THROAT: Ears normal, nares patent, oropharynx clear without exudates. Moist mucous membranes. NECK: Normal range of motion, supple without lymphadenopathy, JVD, or masses. LUNGS: Breath sounds equal, clear to auscultation bilaterally. No wheezes, and no crackles. No accessory muscle use. HEART: Regular rate and rhythm, normal S1 and S2 ABDOMEN: Soft, nontender, not distended, normoactive bowel sounds, no guarding, no rebound, no masses. MUSCULOSKELETAL: Normal range of motion at all joints. No bony deformities or tenderness. No CVA tenderness. UPPER EXTREMITIES: 2+ pulses, warm, well-perfused. No cyanosis. No clubbing. No peripheral edema. LOWER EXTREMITIES: Right AKA, left foot with induration on inner sole unchanged from yesterday, no erythema/tenderness noted NEUROLOGICAL: AAOx3, power 5/5, sensation intact to light touch, cranial nerves II-XII intact. Normal speech.Gait not observed PSYCHIATRIC: Cooperative. Good eye contact. Appropriate mood and affect. SKIN: Warm, dry, normal turgor, no rashes or lesions noted, normal capillary refill. Laboratory Results - last 24 hr 07/24/18 07/24/18 07/24/18 17:00 17:02 17:02 WBC 19.5 H RBC 3.64 Hgb 9.1 L Hct 28.8 L MCV 79.2 L MCH 25.0 L MCHC 31.6 L RDW 17.3 H Plt Count 493 H D MPV 8.1 Absolute Neuts (auto) 16.0 H Neutrophils % 81.6 Lymphocytes % 11.5 Monocytes % 6.1 Eosinophils % 0.4 Basophils % 0.4 Nucleated RBC % 0 Sodium 138 Potassium 4.4 Chloride 105 Carbon Dioxide 24 Anion Gap 9 BUN 24 H Creatinine 1.1 Creat Clearance w eGFR 48.82 Random Glucose 80 Lactic Acid 0.9 Calcium 9.2 Total Bilirubin 0.2 AST 18 ALT 33 Alkaline Phosphatase 108 Total Protein 7.[address] A/P from recent admission reviewed ASSESSMENT/PLAN: 73 yof with PMhx of 73 yof with PMHx of Lupus since 1978 on Prednisone/plaquenil , PAD s/p right AKA 1996/s/p iliac stents (last in 2010) ?lupus nephritis, CKD ( recent Cr 1.2), Anemia, lymphadenopathy (benign per records), HTN, HLD, recently admitted with LLE cellulitis/abscess s/p I&D, recently admitted with left leg redness/swelling, treated with aztreonam, hospital course complicated by diarrhea, with C difficile positive antigen and neg toxin, neg CT A/p for infection, discharged yesterday on oral doxycycline and oral vancomycin re- admitted with reported fevers and ongoing diarrhea. -Acute C difficile diarrhea with sepsis -Recent Left foot cellulitis (recent left metatarsal wound incision and I&D) -PAD s/p Left tibial artery atherectomy/angioplasty x 2 05/20/2018 -Lupus since 1978 on prednisone/Plaquenil -PAD s/p right AKA 1996, PCI last in 2010 -CKD (?lupus nephritis) -Anemia -Lymphadenopathy -HTN -HLD Plan: Abdominal exam benign. recent CT A/P with no concerns. Blood cultures. Will place on IV flagyl and oral vancomycin. Follow up C difficile PCR sent on recent admission. ID consult Dr. Cervantes. Continue doxycycline from recent discharge as discussed with ID. Continue prednisone, hold plaquenil. Continue nifedipine/labetalol. DVTPPX heparin Dispo admit to med surg for IV antibiotics and close monitoring Plan discussed with patient, sister at bedside, ED, Dr. Cervantes and Dr. Montoya in detail. total admit time spent 65 min . Visit type - Emergency Visit Emergency Visit: Yes Care time: The patient presented to the Emergency Department on the above date and was hospitalized for further evaluation of their emergent condition. - New Patient This patient is new to me today: Yes Date on this admission: 07/24/18 - Critical Care Critical Care patient: No
[2018-07-24] MEDS ORDERED: traMADol HCL 50 MG TABLET PO PRN (18:15)
--- NOTE | 2018-07-24 18:25 | PDOC ---
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 She reportedly spoke with Dr. Montoya who referred her for admission. The patient denies chest pain, shortness of breath, headache and dizziness. The patient denies chills, nausea, vomit, diarrhea and constipation. The patient denies dysuria, frequency, urgency and hematuria. Allergies: codeine, penicillins, rinantidine, lactose PCP - Dr. Montoya - Physicial Exam PE: 07/24/18 19:40 ROS: A complete review of 10 out of 10 review of systems is taken and is negative apart from what is previously mentioned below and in the HPI. Vitals: Triage vital signs reviewed General Appearance: No acute distress, well nourished, well developed Head: Atraumatic Eyes: Pupils equal reactive round, extraocular movement intact Neck: Supple; No nuchal rigidity Chest Wall: Nontender Cardiac: Regular rate and rhythm, no murmurs, no rubs, no gallops Lungs: Clear to auscultation bilateral, good air movement bilaterally Abdomen: (+) diffuse abdominal cramping on exam. Soft, nondistended, normal bowel sounds, nontender to palpation Extremities: Full range of motion to all extremities, no cyanosis, clubbing, or edema Skin: Warm and dry, no rashes or lesions, no rash, no petechiae Neuro: AOX3; Cranial Nerves 2-12 grossly intact, Strength intact to all extremities, Sensation intact to all extremities, gait normal Psych: Normal mood, normal affect <Kelly Blackwell - Last Filed: 07/24/18 19:40> - Resident Resident Name: Thien Jaquez - ED Attending Attestation I have performed the following: I have examined & evaluated the patient, The case was reviewed & discussed with the resident, I agree w/resident's findings & plan, Exceptions are as noted - Medical Decision Making 07/25/18 01:25 Worsening C. difficile unable to fill antibiotics as an outpatient we'll admit to hospital for further management IV vancomycin ordered in the emergency department. <Fabrizio Hyatt - Last Filed: 07/25/18 01:25> Attestations - Attestations 07/24/18 18:39 Documentation prepared by Kelly Blackwell, acting as medical collections for Fabrizio Hyatt MD <Kelly Blackwell - Last Filed: 07/24/18 19:40>
[2018-07-24 18:52] LABS: EPI CELLS 2.6 /HPF (0-5); PH,URINE 6.5 (5.0-8.0); URINE APPEARANCE CLEAR; URINE BACTERIA 2.2 /hpf (NEGATIVE); URINE BILIRUBIN NEGATIVE (NEGATIVE); URINE CASTS 4 /hpf (0-8); URINE COLOR DK YELLOW; URINE GLUCOSE (UA) NEGATIVE (NEGATIVE); URINE KETONE NEGATIVE (NEGATIVE); URINE LEUK ESTERASE TRACE (NEGATIVE); URINE NITRITE NEGATIVE (NEGATIVE); URINE PROTEIN 1+ (NEGATIVE); URINE RBC 42 /hpf (0-4); URINE UROBILINOGEN 0.2 mg/dL (0.2-1.0); URINE WBC 5 /hpf (0-5)
[2018-07-24] MEDS: VANCOMYCIN 250 MG/5 ML ORAL SOLUTION PO SCH (19:04)
[2018-07-24] MEDS: SODIUM CHLORIDE 1,000 ML IV SCH (19:05)
[2018-07-24] MEDS: GABAPENTIN 300 MG CAPSULE (FP) PO SCH (22:00)
[2018-07-24] MEDS ORDERED: NIFEdipine E.R 60 MG TABLET (UD) PO SCH (22:00)
[2018-07-24] MEDS: LABETALOL HCL 200 MG TABLET (FP) PO SCH (22:00)
[2018-07-24] MEDS: NIFEdipine E.R. 30 MG TABLET (FP) PO SCH (22:36)
[2018-07-25] MEDS: VANCOMYCIN 250 MG/5 ML ORAL SOLUTION PO SCH ×4 (00:06→17:38)
[2018-07-25] MEDS: GABAPENTIN 300 MG CAPSULE (FP) PO SCH ×3 (06:09→22:16)
[2018-07-25] MEDS: HEPARIN NA (PORCINE) 5,000 UNITS/ML 1ML VIAL SQ SCH ×3 (06:09→22:17)
[2018-07-25] MEDS ORDERED: PT OWN MED DRAWER 7, Y5N ONE (09:32)
[2018-07-25] MEDS: NIFEdipine E.R. 30 MG TABLET (FP) PO SCH ×2 (09:39→22:17)
[2018-07-25] MEDS: predniSONE 5 MG TABLET (UD) PO SCH (09:39)
[2018-07-25] MEDS: LACTOBACILLUS ACIDOPHILUS 1 TABLET PO SCH (09:39)
[2018-07-25] MEDS: DOXYCYCLINE HYCLATE 100 MG CAPSULE PO SCH ×2 (09:39→17:38)
[2018-07-25] MEDS: ASPIRIN 81 MG CHEWABLE TABLETS PO SCH (09:39)
[2018-07-25] MEDS: SERTRALINE HCL 50 MG TABLET (FP) PO SCH (09:39)
[2018-07-25] MEDS: CALCIUM (OYSTER SHELL) 500 MG TABLET (FP) PO SCH ×2 (09:39→22:36)
[2018-07-25] MEDS: LABETALOL HCL 200 MG TABLET (FP) PO SCH ×2 (09:39→22:17)
[2018-07-25] MEDS: MAGNESIUM CL 64 MG TABLET.SA PO SCH (09:40)
[2018-07-25 10:22] LABS: BASO % 0.7 % (0-2.0); HEMOGLOBIN 8.8 GM/dL (10.7-15.3); LYMPH % 15.2 % (8-40); MCH 24.7 pg (25.7-33.7); MCHC 31.6 g/dl (32.0-36.0); MEAN CELL VOLUME 78.2 fl (80-96); MEAN PLT VOLUME 7.9 fl (7.5-11.1); MONO % 10.6 % (3.8-10.2); NEUT % 72.5 % (42.8-82.8); PLATELET COUNT 463 K/MM3 (134-434); RBC 3.57 M/mm3 (3.60-5.2); WHITE BLOOD COUNT 13.4 K/mm3 (4.0-10.0)
[2018-07-25 11:23] LABS: ALBUMIN 2.3 g/dl (3.4-5.0); ALK PHOS 93 U/L (45-117); ANION GAP 9 MMOL/L (8-16); BILIRUBIN,TOTAL 0.2 mg/dL (0.2-1); BLOOD UREA NITROGEN 15 mg/dL (7-18); CALCIUM 8.1 mg/dL (8.5-10.1); CHLORIDE 107 mmol/L (98-107); CO2 23 mmol/L (21-32); CREATININE 0.9 mg/dL (0.55-1.3); GLUCOSE,RANDOM 111 mg/dL (74-106); MAGNESIUM 1.8 mg/dL (1.8-2.4); SGOT/AST 15 U/L (15-37); SGPT/ALT 28 U/L (13-61); SODIUM 139 mmol/L (136-145); TOT PROT 6.5 g/dl (6.4-8.2)
--- NOTE | 2018-07-25 11:46 | PN ---
Physical Exam: SUBJECTIVE: Patient seen and examined, reports nausea, no PO Intake this AM. 1 episode of diarrhea today. No vomiting. No fevers/chills here but overall feels weak. OBJECTIVE: Vital Signs Period Temp Pulse Resp BP Sys/[place] Pulse Ox Last 24 Hr 98.7 F-99.3 F 92-100 18-18 147-184/64-70 98-100 Intake & Output 07/22/18 07/23/18 07/24/18 07/25/18 23:59 23:59 23:59 23:59 Intake Total 1050 Output Total 200 500 Balance -200 550 Weight 133 lb GENERAL: The patient is awake, alert, and fully oriented, in no acute distress, tearful, weak. HEAD: Normal with no signs of trauma. EYES: PERRL, extraocular movements intact, sclera anicteric, conjunctiva clear. No ptosis. ENT: Ears normal, nares patent, oropharynx clear without exudates, moist mucous membranes. NECK: Trachea midline, full range of motion, supple. LUNGS: Breath sounds equal, clear to auscultation bilaterally, no wheezes, no crackles, no accessory muscle use. HEART: Regular rate and rhythm, S1, S2 ABDOMEN: Soft, nontender, nondistended, normoactive bowel sounds, no guarding, no rebound, no hepatosplenomegaly, no masses. EXTREMITIES: right AKA, left foot inner sole with induration chronic skin changes and mild tenderness, no fluctuation or discharge noted PSYCH: anxious, tearful SKIN: Warm, dry, normal turgor, no rashes or lesions noted Laboratory Results - last 24 hr 07/24/18 07/24/18 07/24/18 17:00 17:02 17:02 WBC 19.5 H RBC 3.64 Hgb 9.1 L Hct 28.8 L MCV 79.2 L MCH 25.0 L MCHC 31.6 L RDW 17.3 H Plt Count 493 H D MPV 8.1 Absolute Neuts (auto) 16.0 H Neutrophils % 81.6 Lymphocytes % 11.5 Monocytes % 6.1 Eosinophils % 0.4 Basophils % 0.4 Nucleated RBC % 0 Sodium 138 Potassium 4.4 Chloride 105 Carbon Dioxide 24 Anion Gap 9 BUN 24 H Creatinine 1.1 Creat Clearance w eGFR 48.82 Random Glucose 80 Lactic Acid 0.9 Calcium 9.2 Phosphorus Magnesium Total Bilirubin 0.2 AST 18 ALT 33 Alkaline Phosphatase 108 Total Protein 7.4 Albumin 2.6 L Urine Color Urine Appearance Urine pH Ur Specific [place] Urine Protein Urine Glucose (UA) Urine Ketones Urine Blood Urine Nitrite Urine Bilirubin Urine Urobilinogen Ur Leukocyte Esterase Urine WBC (Auto) Urine RBC (Auto) Urine Casts (Auto) U Epithel Cells (Auto) Urine Bacteria (Auto) 07/24/18 07/25/18 07/25/18 18:30 09:35 09:35 WBC 13.4 H RBC 3.57 L Hgb 8.8 L Hct 28.0 L MCV 78.2 L MCH 24.7 L MCHC 31.6 L RDW 17.0 H Plt Count 463 H MPV 7.9 Absolute Neuts (auto) 9.7 H Neutrophils % 72.5 Lymphocytes % 15.2 D Monocytes % 10.6 H Eosinophils % 1.0 D Basophils % 0.7 Nucleated RBC % 0 Sodium 139 Potassium 4.0 Chloride 107 Carbon Dioxide 23 Anion Gap 9 BUN 15 Creatinine 0.9 Creat Clearance w eGFR 61.55 Random Glucose 111 H Lactic Acid Calcium 8.1 L Phosphorus 3.0 Magnesium 1.8 Total Bilirubin 0.2 AST 15 ALT 28 Alkaline Phosphatase 93 Total Protein 6.5 Albumin 2.3 L Urine Color Dk yellow Urine Appearance Clear Urine pH 6.5 D Ur Specific [place] 1.023 Urine Protein 1+ H Urine Glucose (UA) Negative Urine Ketones Negative Urine Blood 1+ H Urine Nitrite Negative Urine Bilirubin Negative Urine Urobilinogen 0.2 Ur Leukocyte Esterase Trace Urine WBC (Auto) 5 Urine RBC (Auto) 42 Urine Casts (Auto) 4 U Epithel Cells (Auto) 2.6 Urine Bacteria (Auto) 2.2 Active Medications Generic Name Dose Route Start Last Admin Trade Name Freq PRN Reason Stop Dose Admin Aspirin 81 mg 07/25/18 10:00 07/25/18 09:39 Asa - PO 81 mg DAILY [facility] Administration Calcium Carbonate 1,000 mg 07/25/18 10:00 07/25/18 09:39 Os-Ryan 500mg - PO 1,000 mg BID [facility] Administration Doxycycline Hyclate 100 mg 07/25/18 10:00 07/25/18 09:39 Vibramycin - PO 100 mg BID@1000,1800 [facility] Administration Gabapentin 600 mg 07/24/18 22:00 07/25/18 06:09 Neurontin - PO 600 mg TID [facility] Administration Heparin Sodium (Porcine) 5,000 unit 07/25/18 06:00 07/25/18 06:09 Heparin - SQ 5,000 unit TID [facility] Administration Metronidazole 500 mg in 100 mls @ 100 mls/hr 07/25/18 02:00 07/25/18 09:39 Flagyl 500mg Premixed Ivpb - IVPB 100 mls/hr Q8H-IV [facility] Administration Sodium Chloride 1,000 mls @ 75 mls/hr 07/24/18 18:15 07/24/18 19:05 Normal Saline - IV 75 mls/hr ASDIR [facility] Administration Labetalol HCl 200 mg 07/24/18 22:00 07/25/18 09:39 Normodyne - PO 200 mg BID [facility] Administration Lactobacillus Acidophilus 1 tab 07/25/18 10:00 07/25/18 09:39 Bacid - PO 1 tab DAILY [facility] Administration Magnesium Chloride 64 mg 07/25/18 10:00 07/25/18 09:40 Slow-Mag - PO 64 mg DAILY [facility] Administration Nifedipine 60 mg 07/24/18 22:15 07/25/18 09:39 Procardia Xl - PO 60 mg BID [facility] Administration Prednisone 5 mg 07/25/18 10:00 07/25/18 09:39 Deltasone - PO 5 mg DAILY [facility] Administration Sertraline HCl 50 mg 07/25/18 10:00 07/25/18 09:39 Zoloft - PO 50 mg DAILY [facility] Administration Tramadol HCl 50 mg 07/24/18 18:15 Ultram - PO DAILY PRN PAIN LEVEL 6-10 Vancomycin HCl 125 mg 07/24/18 18:00 07/25/18 11:31 Vancomycin Oral Solution PO 125 mg Q6HPO [facility] Administration ASSESSMENT/PLAN: 73 yof with PMhx of 73 yof with PMHx of Lupus since 1978 on Prednisone/plaquenil , PAD s/p right AKA 1996/s/p iliac stents (last in 2010) ?lupus nephritis, CKD ( recent Cr 1.2), Anemia, lymphadenopathy (benign per records), HTN, HLD, recently admitted with LLE cellulitis/abscess s/p I&D, recently admitted with left leg redness/swelling, treated with aztreonam, hospital course complicated by diarrhea, with C difficile positive antigen and neg toxin, neg CT A/p for infection, discharged yesterday on oral doxycycline and oral vancomycin re- admitted with reported fevers and ongoing diarrhea. -Acute C difficile diarrhea with sepsis -Recent Left foot cellulitis (recent left metatarsal wound incision and I&D) -PAD s/p Left tibial artery atherectomy/angioplasty x 2 05/20/2018 -Lupus since 1978 on prednisone/Plaquenil -PAD s/p right AKA 1996, PCI last in 2010 -CKD (?lupus nephritis) -Anemia -Lymphadenopathy -HTN -HLD Plan: Abdominal exam benign. recent CT A/P with no concerns. IV flagyl/po vancomycin/PO doxycycline. WBC improved, afebrile. Diarrhea better. Concerning symptom is nausea, worsened this AM, ?Flagyl related. Discuss with ID if can taper to oral vancomycin. Continue IVF, add zofran prn. Follow up C difficile PCR from recent admission. Discussed with [facility] pharmacy, patient has ready pre-authorized script for oral vancomycin from recent dc with confirmed copay of $158. However, ?due to confusion at desk there, sister was given only doxycycline script and not vancomycin. 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 Continue doxycycline day 3/7 from recent discharge as discussed with ID. Continue prednisone, hold plaquenil. Continue nifedipine/labetalol. Patient recently started on zoloft, current seems anxious and depressed though no SI/HI Will consult psych Dr. Galloway. DVTPPX heparin Dispo pending clinical improvement. PT re-eval when medical concerns and PO intake improved. Plan discussed with patient and sister at bedside in detail, all questions answered. Visit type - Emergency Visit Emergency Visit: Yes ED Registration Date: 07/24/18 Care time: The patient presented to the Emergency Department on the above date and was hospitalized for further evaluation of their emergent condition. - New Patient This patient is new to me today: No - Critical Care Critical Care patient: No - Discharge Referral Referred to [facility] No
[2018-07-25] MEDS ORDERED: ONDANSETRON 4 MG/2 ML VIAL IVPUSH PRN (11:51)
--- NOTE | 2018-07-25 15:46 | CON.ID ---
Consult - History of Present Illness History of Present Illness: 73 y.o. female with PMH of Lupus, CKD, hydronephrosis s/p ureteral stents, Rt AKA, HTN, HLD, DM and Lt foot plantar ulcer who was recently admitted and started on treatment for Lt foot erythema/pain suggestive of cellulitis. CT foot neg for OM or abscess. She had developed diarrhea and leukocytosis with stool testing +C.diff Ag /Toxin negative and was started on Vancomycin po with reported improvement in diarrhea. Pt was discharged home on doxycycline and vancomycin po but returned the next day due to fever of 103F and c/o diarrhea and nausea. She states she was not able to black pickler Vancomycin from her pharmacy. In the ER noted to have leukocytosis (wbc 19K) and given dose of Flagyl IV in addition to doxycycline and vancomycin po. WBC has trended down but today still with 4 loose BMs so far with episodes of vomiting. Currently denies abd pain/cramping, dyspnea/cough, dysuria, chills, rash and has no other specific complaints. Denies pain in Lt foot. - History Source History Provided By: Patient, Medical Record Limitations to Obtaining History: No Limitations - Past Medical History Cardio/Vascular: Yes: CAD Gastrointestinal: Yes: GERD Renal/: Yes: Renal Failure, Other (renal obstruction s/p stents) Rheumatology: Yes: Lupus, Vasculitis (chronic), Other (Bachets disease) Endocrine: Yes: Diabetes Mellitus - Past Surgical History Past Surgical History: Yes: Amputation (R AKA) - Alcohol/Substance Use Hx Alcohol Use: No - Smoking History Smoking history: Never smoked Have you smoked in the past 12 months: No Aproximately how many cigarettes per day: 0 If you are a former smoker, when did you quit?: 1979 - Social History Usual Living Arrangement: Other (her son and her grown grandson live with her) ADL: Independent History of Recent Travel: No Home Medications - Allergies Allergies/Adverse Reactions: Allergies Allergy/AdvReac Type Severity Reaction Status Date / Time codeine [Codeine] Allergy Hives Verified 07/24/18 16:42 Penicillins Allergy Hives Verified 07/24/18 16:42 lactose AdvReac Verified 07/24/18 16:42 ranitidine [From Zantac] AdvReac headache Verified 07/24/18 16:42 - Home Medications Home Medications: Ambulatory Orders Hydroxychloroquine Sulfate [Plaquenil] 200 mg PO DAILY 10/20/15 Nifedipine [Procardia Xl] 60 mg PO BID 10/20/15 predniSONE [Deltasone -] 5 mg PO DAILY 10/20/15 Iron,Carbonyl [Feosol] 65 mg PO DAILY 11/20/15 Vitamin B Complex [B Complex # 1] 1 each PO DAILY 11/20/15 Labetalol HCl 200 mg PO BID 07/22/17 Calcium Carbonate [Calcium] 1,000 mg PO DAILY 05/17/18 Famotidine [Pepcid] 20 mg PO DAILY 05/17/18 Gabapentin [Neurontin -] 600 mg PO TID 05/17/18 Magnesium Chloride [Slow-Mag -] 64 mg PO DAILY 05/17/18 Multivit-Min36/Iron/Folic Acid [Geritol Complete Tablet] 1 each PO DAILY Aspirin [ASA -] 81 mg PO DAILY tab.chew 06/01/18 Tramadol HCl [Ultram] 50 mg PO DAILY #14 tablet MDD 1 06/04/18 Lactobacillus Acidophilus [Bacid -] 1 tab PO DAILY #30 tab 07/21/18 Sertraline HCl [Zoloft -] 50 mg PO DAILY #30 tablet 07/21/18 Doxycycline Hyclate [Vibramycin -] 100 mg PO BID@1000,1800 6 Days #12 capsule Vancomycin HCl [Vancocin HCl] 125 mg PO QID 20 Days #80 capsule 07/23/18 Family Disease History - Family Disease History Family Disease History: Other: Brother (dementia) Review of Systems - Review of Systems Constitutional: reports: Loss of Appetite Eyes: reports: No Symptoms HENT: reports: No Symptoms Neck: reports: No Symptoms Cardiovascular: reports: No Symptoms Respiratory: reports: No Symptoms Gastrointestinal: reports: Diarrhea Genitourinary: reports: No Symptoms Breasts: reports: No Symptoms Reported Musculoskeletal: reports: No Symptoms Integumentary: reports: No Symptoms Neurological: reports: No Symptoms Endocrine: reports: No Symptoms Hematology/Lymphatic: reports: No Symptoms Psychiatric: reports: No Symptoms Physical Exam Vital Signs: Vital Signs Temperature 98.8 F 07/25/18 15:19 Pulse Rate 92 H 07/25/18 15:19 Respiratory Rate 18 07/25/18 10:00 Blood Pressure 183/73 H 07/25/18 15:19 O2 Sat by Pulse Oximetry (%) 98 07/24/18 22:14 Constitutional: Yes: No Distress, Calm Eyes: Yes: Conjunctiva Clear, EOM Intact HENT: Yes: Atraumatic Neck: Yes: Supple Cardiovascular: Yes: Regular Rate and Rhythm Respiratory: Yes: CTA Bilaterally Gastrointestinal: Yes: Normal Bowel Sounds, Soft Renal/: Yes: WNL Musculoskeletal: Yes: WNL Extremities: Yes: WNL Integumentary: Yes: Other (Lt foot plantar ulcer healed, no foot erythema/warmth /tenderness) Labs: CBC, BMP 07/25/18 09:35 07/25/18 09:35 Laboratory Tests 07/24/18 07/24/18 07/24/18 17:00 17:02 17:02 WBC 19.5 H RBC 3.64 Hgb 9.1 L Hct 28.8 L MCV 79.2 L MCH 25.0 L MCHC 31.6 L RDW 17.3 H Plt Count 493 H D MPV 8.1 Absolute Neuts (auto) 16.0 H Neutrophils % 81.6 Lymphocytes % 11.5 Monocytes % 6.1 Eosinophils % 0.4 Basophils % 0.4 Nucleated RBC % 0 Sodium 138 Potassium 4.4 Chloride 105 Carbon Dioxide 24 Anion Gap 9 BUN 24 H Creatinine 1.1 Creat Clearance w eGFR 48.82 Random Glucose 80 Lactic Acid 0.9 Calcium 9.2 Phosphorus Magnesium Total Bilirubin 0.2 AST 18 ALT 33 Alkaline Phosphatase 108 Total Protein 7.4 Albumin 2.6 L Urine Color Urine Appearance Urine pH Ur Specific [place] Urine Protein Urine Glucose (UA) Urine Ketones Urine Blood Urine Nitrite Urine Bilirubin Urine Urobilinogen Ur Leukocyte Esterase Urine WBC (Auto) Urine RBC (Auto) Urine Casts (Auto) U Epithel Cells (Auto) Urine Bacteria (Auto) 07/24/18 07/25/18 07/25/18 18:30 09:35 09:35 WBC 13.4 H RBC 3.57 L Hgb 8.8 L Hct 28.0 L MCV 78.2 L MCH 24.7 L MCHC 31.6 L RDW 17.0 H Plt Count 463 H MPV 7.9 Absolute Neuts (auto) 9.7 H Neutrophils % 72.5 Lymphocytes % 15.2 D Monocytes % 10.6 H Eosinophils % 1.0 D Basophils % 0.7 Nucleated RBC % 0 Sodium 139 Potassium 4.0 Chloride 107 Carbon Dioxide 23 Anion Gap 9 BUN 15 Creatinine 0.9 Creat Clearance w eGFR 61.55 Random Glucose 111 H Lactic Acid Calcium 8.1 L Phosphorus 3.0 Magnesium 1.8 Total Bilirubin 0.2 AST 15 ALT 28 Alkaline Phosphatase 93 Total Protein 6.5 Albumin 2.3 L Urine Color Dk yellow Urine Appearance Clear Urine pH 6.5 D Ur Specific [place] 1.023 Urine Protein 1+ H Urine Glucose (UA) Negative Urine Ketones Negative Urine Blood 1+ H Urine Nitrite Negative Urine Bilirubin Negative Urine Urobilinogen 0.2 Ur Leukocyte Esterase Trace Urine WBC (Auto) 5 Urine RBC (Auto) 42 Urine Casts (Auto) 4 U Epithel Cells (Auto) 2.6 Urine Bacteria (Auto) 2.2 Blood cultures pending Imaging - Results Chest X-ray: Report Reviewed Cat Scan: Report Reviewed Problem List - Problems (1) Fever Code(s): R50.9 - FEVER, UNSPECIFIED Qualifiers: Fever type: unspecified Qualified Code(s): R50.9 - Fever, unspecified (2) Acute on chronic renal failure Code(s): N17.9 - ACUTE KIDNEY FAILURE, UNSPECIFIED; N18.9 - CHRONIC KIDNEY DISEASE, UNSPECIFIED Qualifiers: Acute renal failure type: unspecified Chronic kidney disease stage: unspecified stage Qualified Code(s): N17.9 - Acute kidney failure, unspecified ; N18.9 - Chronic kidney disease, unspecified; N18.9 - Chronic kidney disease, unspecified (3) Atherosclerosis of [place] arteries of left leg with ulceration of other part of foot Code(s): I70.245 - ATHSCL [place] ARTERIES OF LEFT LEG W ULCERATION OTH PRT FOOT (4) Left foot infection Code(s): L08.9 - LOCAL INFECTION OF THE SKIN AND SUBCUTANEOUS TISSUE, UNSP (5) PVD (peripheral vascular disease) Code(s): I73.9 - PERIPHERAL VASCULAR DISEASE, UNSPECIFIED (6) Sepsis Code(s): A41.9 - SEPSIS, UNSPECIFIED ORGANISM Qualifiers: Sepsis type: sepsis due to unspecified organism Qualified Code(s): A41.9 - Sepsis, unspecified organism (7) Vomiting Code(s): R11.10 - VOMITING, UNSPECIFIED Qualifiers: Vomiting type: unspecified Vomiting Intractability: non-intractable Nausea presence: with nausea Qualified Code(s): R11.2 - Nausea with vomiting, unspecified (8) Amputated right leg Code(s): Z89.611 - ACQUIRED ABSENCE OF RIGHT LEG ABOVE KNEE (9) Anemia Code(s): D64.9 - ANEMIA, UNSPECIFIED Qualifiers: Anemia type: unspecified type Qualified Code(s): D64.9 - Anemia, unspecified (10) Hydronephrosis Code(s): N13.30 - UNSPECIFIED HYDRONEPHROSIS (11) Hyperlipidemia Code(s): E78.5 - HYPERLIPIDEMIA, UNSPECIFIED (12) Lupus (systemic lupus erythematosus) Code(s): M32.9 - SYSTEMIC LUPUS ERYTHEMATOSUS, UNSPECIFIED Assessment/Plan 73 y.o. female with PMH of Lupus, CKD, hydronephrosis s/p ureteral stents, Rt AKA, HTN, HLD, DM and Lt foot plantar ulcer who was recently admitted and started on treatment for Lt foot erythema/pain suggestive of cellulitis. Pt developed diarrhea with C.diff testing suggestive of possible colitis. Readmitted for fever, diarrhea, nausea/vomiting. Diarrhea/C. diff colitis Fever Leukocytosis Nausea/Vomiting -- previous imaging/labs reviewed -- At this time suggest D/C Flagyl IV and continue Vancomycin po -- Will hold doxycycline due to persistent diarrhea -- repeat cbc in a.m., monitor wbc trend and temperatures closely -- follow up blood culture results -- Vitals currently stable, pt afebrile -- maintain contact precautions d/w Dr. Dale Will follow Thank you
--- NOTE | 2018-07-25 21:06 | CON.PSL ---
Psychology Consult Consult Specialty:: Clinical Psychology History Provided By: Patient Limitations to Obtaining History: No Limitations Current Medications: Active Medications Aspirin (Asa -) 81 mg PO DAILY [facility] Last Admin: 07/25/18 09:39 Dose: 81 mg Calcium Carbonate (Os-Ryan 500mg -) 1,000 mg PO BID [facility] Last Admin: 07/25/18 09:39 Dose: 1,000 mg Doxycycline Hyclate (Vibramycin -) 100 mg PO BID@1000,1800 [facility] Last Admin: 07/25/18 17:38 Dose: 100 mg Gabapentin (Neurontin -) 600 mg PO TID [facility] Last Admin: 07/25/18 14:49 Dose: 600 mg Heparin Sodium (Porcine) (Heparin -) 5,000 unit SQ TID [facility] Last Admin: 07/25/18 14:51 Dose: 5,000 unit Sodium Chloride (Normal Saline -) 1,000 mls @ 75 mls/hr IV ASDIR [facility] Last Admin: 07/24/18 19:05 Dose: 75 mls/hr Labetalol HCl (Normodyne -) 200 mg PO BID [facility] Last Admin: 07/25/18 09:39 Dose: 200 mg Lactobacillus Acidophilus (Bacid -) 1 tab PO DAILY [facility] Last Admin: 07/25/18 09:39 Dose: 1 tab Magnesium Chloride (Slow-Mag -) 64 mg PO DAILY [facility] Last Admin: 07/25/18 09:40 Dose: 64 mg Nifedipine (Procardia Xl -) 60 mg PO BID [facility] Last Admin: 07/25/18 09:39 Dose: 60 mg Ondansetron HCl (Zofran Injection) 4 mg IVPUSH Q6H PRN PRN Reason: NAUSEA AND/OR VOMITING Last Admin: 07/25/18 14:56 Dose: 4 mg Prednisone (Deltasone -) 5 mg PO DAILY [facility] Last Admin: 07/25/18 09:39 Dose: 5 mg Sertraline HCl (Zoloft -) 50 mg PO DAILY [facility] Last Admin: 07/25/18 09:39 Dose: 50 mg Tramadol HCl (Ultram -) 50 mg PO DAILY PRN PRN Reason: PAIN LEVEL 6-10 Vancomycin HCl (Vancomycin Oral Solution) 125 mg PO Q6HPO [facility] Last Admin: 07/25/18 17:38 Dose: 125 mg Allergies: Allergies Allergy/AdvReac Type Severity Reaction Status Date / Time codeine [Codeine] Allergy Hives Verified 07/24/18 16:42 Penicillins Allergy Hives Verified 07/24/18 16:42 lactose AdvReac Verified 07/24/18 16:42 ranitidine [From Zantac] AdvReac headache Verified 07/24/18 16:42 Does patient have pain?: No Hx Alcohol Use: No Hx Substance Use: No Hx Substance Use Treatment: No Current Medical Exam-Psy Attention: Alert Orientation: Time, Person, Place Immediate Term Memory: 06/28 Expressive: Coherent Receptive: Age Appropriate Comprehension of Spoken Words Hallucinations: Absent Thought Process: Intact Depression: Severe Hopelessness: Yes (Variable; depends on frequent hospitalizations.) Loss of Interest: No Anxiety Level: Severe Danger to Self and Others: No Sleep: Poorly Appetite: Poor Serial Sevens Intact: No Repeats 3 words told earlier: 2 Support System: Family (She is seeking penitentiary arrangements.) Leisure activities: With Family Problem List - Problem (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 Currently , she is fighting Keelr, coping with an above the knee amputation associated with Lupus and dealing with Vasculitis and GI complaints. Her sleep and appetite have gotten worse. As a result of these physical conditions she has become more depressed and anxious over her health. We initiated a relaxation protocol to help reduce her anxiety and elevate her mood. She stated that her mood improved slightly (8 to a 7), that is, the lower the number on this scale the better the outcome. Likewise, her anxiety was reported to have improved from an 8 to a 7. The patient was instructed to perform deep breathing to help improve her symptoms of distress. She will be seen early during the following week. A consultation with Hedy Johnson RN, MSN and Rev. Fabrizio Bae would also be of value to support the patient while she remains here.
[2018-07-25] MEDS: SODIUM CHLORIDE 1,000 ML IV SCH (22:20)
[2018-07-26] MEDS: HEPARIN NA (PORCINE) 5,000 UNITS/ML 1ML VIAL SQ SCH ×3 (06:13→22:23)
[2018-07-26] MEDS: GABAPENTIN 300 MG CAPSULE (FP) PO SCH ×3 (06:13→22:19)
[2018-07-26] MEDS: VANCOMYCIN 250 MG/5 ML ORAL SOLUTION PO SCH ×4 (06:13→17:23)
[2018-07-26 08:29] LABS: BASO % 1.2 % (0-2.0); EOS % 1.9 % (0-4.5); HEMATOCRIT 29.3 % (32.4-45.2); LYMPH % 15.7 % (8-40); MCH 24.2 pg (25.7-33.7); MCHC 30.6 g/dl (32.0-36.0); MEAN CELL VOLUME 79.1 fl (80-96); MEAN PLT VOLUME 7.8 fl (7.5-11.1); MONO % 9.4 % (3.8-10.2); NEUT % 71.8 % (42.8-82.8); PLATELET COUNT 514 K/MM3 (134-434); RDW 17.1 % (11.6-15.6); WHITE BLOOD COUNT 12.9 K/mm3 (4.0-10.0)
[2018-07-26 08:57] LABS: ALBUMIN 2.2 g/dl (3.4-5.0); ALK PHOS 83 U/L (45-117); ANION GAP 9 MMOL/L (8-16); BILIRUBIN,TOTAL 0.2 mg/dL (0.2-1); BLOOD UREA NITROGEN 12 mg/dL (7-18); CALCIUM 8.3 mg/dL (8.5-10.1); CHLORIDE 109 mmol/L (98-107); CO2 20 mmol/L (21-32); CREATININE 0.8 mg/dL (0.55-1.3); GLUCOSE,RANDOM 90 mg/dL (74-106); MAGNESIUM 2.1 mg/dL (1.8-2.4); PHOSPHOROUS 2.6 mg/dL (2.5-4.9); POTASSIUM 3.8 mmol/L (3.5-5.1); SGOT/AST 12 U/L (15-37); SGPT/ALT 22 U/L (13-61); SODIUM 137 mmol/L (136-145); TOT PROT 6.5 g/dl (6.4-8.2)
[2018-07-26] MEDS ORDERED: PT OWN MED DRAWER 7, Y5N ONE ×2 (10:56→22:08)
[2018-07-26] MEDS: MAGNESIUM CL 64 MG TABLET.SA PO SCH (11:04)
[2018-07-26] MEDS: NIFEdipine E.R. 30 MG TABLET (FP) PO SCH ×2 (11:05→22:22)
[2018-07-26] MEDS: DOXYCYCLINE HYCLATE 100 MG CAPSULE PO SCH ×2 (11:05→17:22)
[2018-07-26] MEDS: predniSONE 5 MG TABLET (UD) PO SCH (11:05)
[2018-07-26] MEDS: ASPIRIN 81 MG CHEWABLE TABLETS PO SCH (11:05)
[2018-07-26] MEDS: LABETALOL HCL 200 MG TABLET (FP) PO SCH ×2 (11:05→22:20)
[2018-07-26] MEDS: LACTOBACILLUS ACIDOPHILUS 1 TABLET PO SCH (11:05)
[2018-07-26] MEDS: SERTRALINE HCL 50 MG TABLET (FP) PO SCH (11:05)
[2018-07-26] MEDS: CALCIUM (OYSTER SHELL) 500 MG TABLET (FP) PO SCH ×2 (11:05→22:23)
[2018-07-26] MEDS ORDERED: LABETALOL HCL 100 MG TABLET (FP) PO ONE (11:27)
--- NOTE | 2018-07-26 11:28 | PN ---
Physical Exam: SUBJECTIVE: Patient seen and examined, diarrhea improved. No further nausea. tolerating diet well. No abdominal pain, fevers or chills. Overall feels better. OBJECTIVE: Vital Signs Period Temp Pulse Resp BP Sys/[place] Pulse Ox Last 24 Hr 98 F-98.8 F 90-93 20-20 164-183/70-78 98 Intake & Output 07/23/18 07/24/18 07/25/18 07/26/18 23:59 23:59 23:59 23:59 Intake Total 1450 1250 Output Total 200 500 Balance -385 601 7259 Weight 133 lb GENERAL: The patient is awake, alert, and fully oriented, in no acute distress, better mood today HEAD: Normal with no signs of trauma. EYES: PERRL, extraocular movements intact, sclera anicteric, conjunctiva clear. No ptosis. ENT: Ears normal, nares patent, oropharynx clear without exudates, moist mucous membranes. NECK: Trachea midline, full range of motion, supple. LUNGS: Breath sounds equal, clear to auscultation bilaterally, no wheezes, no crackles, no accessory muscle use. HEART: Regular rate and rhythm, S1, S2 ABDOMEN: Soft, nontender, nondistended, normoactive bowel sounds, no guarding, no rebound, no hepatosplenomegaly, no masses. EXTREMITIES: right AKA, left foot inner sole with induration chronic skin changes and mild tenderness, no fluctuation or discharge noted PSYCH: anxious, tearful SKIN: Warm, dry, normal turgor, no rashes or lesions noted Laboratory Results - last 24 hr 07/26/18 07/26/18 07:00 07:00 WBC 12.9 H RBC 3.70 Hgb 9.0 L Hct 29.3 L MCV 79.1 L MCH 24.2 L MCHC 30.6 L RDW 17.1 H Plt Count 514 H MPV 7.8 Absolute Neuts (auto) 9.3 H Neutrophils % 71.8 Lymphocytes % 15.7 Monocytes % 9.4 Eosinophils % 1.9 D Basophils % 1.2 Nucleated RBC % 0 Sodium 137 Potassium 3.8 Chloride 109 H Carbon Dioxide 20 L Anion Gap 9 BUN 12 Creatinine 0.8 Creat Clearance w eGFR 70.51 Random Glucose 90 Calcium 8.3 L Phosphorus 2.6 Magnesium 2.1 Total Bilirubin 0.2 AST 12 L ALT 22 Alkaline Phosphatase 83 Total Protein 6.5 Albumin 2.2 L Active Medications Generic Name Dose Route Start Last Admin Trade Name Freq PRN Reason Stop Dose Admin Aspirin 81 mg 07/25/18 10:00 07/26/18 11:05 Asa - PO 81 mg DAILY [facility] Administration Calcium Carbonate 1,000 mg 07/25/18 10:00 07/26/18 11:05 Os-Ryan 500mg - PO 1,000 mg BID [facility] Administration Doxycycline Hyclate 100 mg 07/25/18 10:00 07/26/18 11:05 Vibramycin - PO 100 mg BID@1000,1800 [facility] Administration Gabapentin 600 mg 07/24/18 22:00 07/26/18 06:13 Neurontin - PO 600 mg TID [facility] Administration Heparin Sodium (Porcine) 5,000 unit 07/25/18 06:00 07/26/18 06:13 Heparin - SQ 5,000 unit TID [facility] Administration Sodium Chloride 1,000 mls @ 75 mls/hr 07/24/18 18:15 07/25/18 22:20 Normal Saline - IV 75 mls/hr ASDIR [facility] Administration Labetalol HCl 100 mg 07/26/18 11:27 Normodyne - PO 07/26/18 11:28 ONCE ONE Labetalol HCl 300 mg 07/26/18 22:00 Normodyne - PO BID [facility] Lactobacillus Acidophilus 1 tab 07/25/18 10:00 07/26/18 11:05 Bacid - PO 1 tab DAILY [facility] Administration Magnesium Chloride 64 mg 07/25/18 10:00 07/26/18 11:04 Slow-Mag - PO 64 mg DAILY [facility] Administration Nifedipine 60 mg 07/24/18 22:15 07/26/18 11:05 Procardia Xl - PO 60 mg BID [facility] Administration Ondansetron HCl 4 mg 07/25/18 11:51 07/25/18 14:56 Zofran Injection IVPUSH 4 mg Q6H PRN Administration NAUSEA AND/OR VOMITING Prednisone 5 mg 07/25/18 10:00 07/26/18 11:05 Deltasone - PO 5 mg DAILY [facility] Administration Sertraline HCl 50 mg 07/25/18 10:00 07/26/18 11:05 Zoloft - PO 50 mg DAILY [facility] Administration Tramadol HCl 50 mg 07/24/18 18:15 Ultram - PO DAILY PRN PAIN LEVEL 6-10 Vancomycin HCl 125 mg 07/24/18 18:00 07/26/18 06:13 Vancomycin Oral Solution PO 125 mg Q6HPO [facility] Administration Microbiology 07/24/18 18:30 Blood - Peripheral Venous Blood Culture - Preliminary NO GROWTH OBTAINED AFTER 24 HOURS, INCUBATION TO CONTINUE FOR 4 DAYS. 07/24/18 18:30 Blood - Peripheral Venous Blood Culture - Preliminary NO GROWTH OBTAINED AFTER 24 HOURS, INCUBATION TO CONTINUE FOR 4 DAYS. ASSESSMENT/PLAN: 73 yof with PMhx of 73 yof with PMHx of Lupus since 1978 on Prednisone/plaquenil , PAD s/p right AKA 1996/s/p iliac stents (last in 2010) ?lupus nephritis, CKD ( recent Cr 1.2), Anemia, lymphadenopathy (benign per records), HTN, HLD, recently admitted with LLE cellulitis/abscess s/p I&D, recently admitted with left leg redness/swelling, treated with aztreonam, hospital course complicated by diarrhea, with C difficile positive antigen and neg toxin, neg CT A/p for infection, discharged yesterday on oral doxycycline and oral vancomycin re- admitted with reported fevers and ongoing diarrhea. -Acute C difficile diarrhea with sepsis -Recent Left foot cellulitis (recent left metatarsal wound incision and I&D) -PAD s/p Left tibial artery atherectomy/angioplasty x 2 05/20/2018 -Lupus since 1978 on prednisone/Plaquenil -PAD s/p right AKA 1996, PCI last in 2010 -CKD (?lupus nephritis) -Anemia -Lymphadenopathy -HTN -HLD Plan: Clinically improved WBC better, diarrhea better. Recent CT A/P with no concerns. C diff PCR sent on recent admission neg. PO vancomycin, Sister able to fruit or nut picker oral vancomycin prescription from [facility] pharmacy that was pre-authorized on recent dc. ID input noted. Doxycycline and IV flagly d/ryan. Nausea resolved. Hypertensive, increase labetalol to 300 mg BID. Continue nifedidpine Continue Prednisone, hold plaquenil. Patient recently started on zoloft, psychology input Dr. Galloway appreciated. DVTPPX heparin Dispo PT eval, d/c in 24 hours if continuest o improve. Plan discussed with patient and RN in detail, all questions answered. Visit type - Emergency Visit Emergency Visit: Yes ED Registration Date: 07/24/18 Care time: The patient presented to the Emergency Department on the above date and was hospitalized for further evaluation of their emergent condition. - New Patient This patient is new to me today: No - Critical Care Critical Care patient: No - Discharge Referral Referred to [facility] No
[2018-07-26 13:52] LABS: ANISOCYTOSIS 2+; MACROCYTOSIS 0; PLATELET ESTIMATE INCREASED
[2018-07-26] MEDS: SODIUM CHLORIDE 1,000 ML IV SCH (14:06)
--- NOTE | 2018-07-26 15:33 | PN ---
Progress Note, Physician History of Present Illness: Pt states she feels much better today. Fevers resolved, wbc trending down to normal. No abdominal pain. Had 4 BMs today but not as loose. - Current Medication List Current Medications: Active Medications Aspirin (Asa -) 81 mg PO DAILY [facility] Last Admin: 07/26/18 11:05 Dose: 81 mg Calcium Carbonate (Os-Ryan 500mg -) 1,000 mg PO BID [facility] Last Admin: 07/26/18 11:05 Dose: 1,000 mg Doxycycline Hyclate (Vibramycin -) 100 mg PO BID@1000,1800 [facility] Last Admin: 07/26/18 11:05 Dose: 100 mg Gabapentin (Neurontin -) 600 mg PO TID [facility] Last Admin: 07/26/18 14:07 Dose: 600 mg Heparin Sodium (Porcine) (Heparin -) 5,000 unit SQ TID [facility] Last Admin: 07/26/18 14:07 Dose: 5,000 unit Sodium Chloride (Normal Saline -) 1,000 mls @ 75 mls/hr IV ASDIR [facility] Last Admin: 07/26/18 14:06 Dose: 75 mls/hr Labetalol HCl (Normodyne -) 300 mg PO BID [facility] Lactobacillus Acidophilus (Bacid -) 1 tab PO DAILY [facility] Last Admin: 07/26/18 11:05 Dose: 1 tab Magnesium Chloride (Slow-Mag -) 64 mg PO DAILY [facility] Last Admin: 07/26/18 11:04 Dose: 64 mg Nifedipine (Procardia Xl -) 60 mg PO BID [facility] Last Admin: 07/26/18 11:05 Dose: 60 mg Ondansetron HCl (Zofran Injection) 4 mg IVPUSH Q6H PRN PRN Reason: NAUSEA AND/OR VOMITING Last Admin: 07/25/18 14:56 Dose: 4 mg Prednisone (Deltasone -) 5 mg PO DAILY [facility] Last Admin: 07/26/18 11:05 Dose: 5 mg Sertraline HCl (Zoloft -) 50 mg PO DAILY [facility] Last Admin: 07/26/18 11:05 Dose: 50 mg Tramadol HCl (Ultram -) 50 mg PO DAILY PRN PRN Reason: PAIN LEVEL 6-10 Vancomycin HCl (Vancomycin Oral Solution) 125 mg PO Q6HPO [facility] Last Admin: 07/26/18 14:08 Dose: 125 mg - Objective Vital Signs: Vital Signs Temperature 98.7 F 03/31/19 15:02 Pulse Rate 81 07/26/18 15:02 Respiratory Rate 20 07/26/18 06:00 Blood Pressure 160/63 07/26/18 15:02 O2 Sat by Pulse Oximetry (%) 98 07/25/18 21:00 Constitutional: Yes: No Distress, Calm Cardiovascular: Yes: Regular Rate and Rhythm Respiratory: Yes: Regular Gastrointestinal: Yes: Normal Bowel Sounds, Soft Extremities: Yes: Amputation (RT BKA) Integumentary: Yes: WNL Neurological: Yes: Alert, Oriented Labs: CBC, BMP 07/26/18 07:00 07/26/18 07:00 Microbiology 07/24/18 18:30 Blood - Peripheral Venous Blood Culture - Preliminary NO GROWTH OBTAINED AFTER 24 HOURS, INCUBATION TO CONTINUE FOR 4 DAYS. 07/24/18 18:30 Blood - Peripheral Venous Blood Culture - Preliminary NO GROWTH OBTAINED AFTER 24 HOURS, INCUBATION TO CONTINUE FOR 4 DAYS. Problem List - Problems (1) Fever Code(s): R50.9 - FEVER, UNSPECIFIED Qualifiers: Fever type: unspecified Qualified Code(s): R50.9 - Fever, unspecified (2) Acute on chronic renal failure Code(s): N17.9 - ACUTE KIDNEY FAILURE, UNSPECIFIED; N18.9 - CHRONIC KIDNEY DISEASE, UNSPECIFIED Qualifiers: Acute renal failure type: unspecified Chronic kidney disease stage: unspecified stage Qualified Code(s): N17.9 - Acute kidney failure, unspecified ; N18.9 - Chronic kidney disease, unspecified; N18.9 - Chronic kidney disease, unspecified (3) Atherosclerosis of [place] arteries of left leg with ulceration of other part of foot Code(s): I70.245 - ATHSCL [place] ARTERIES OF LEFT LEG W ULCERATION OTH PRT FOOT (4) Left foot infection Code(s): L08.9 - LOCAL INFECTION OF THE SKIN AND SUBCUTANEOUS TISSUE, UNSP (5) PVD (peripheral vascular disease) Code(s): I73.9 - PERIPHERAL VASCULAR DISEASE, UNSPECIFIED (6) Sepsis Code(s): A41.9 - SEPSIS, UNSPECIFIED ORGANISM Qualifiers: Sepsis type: sepsis due to unspecified organism Qualified Code(s): A41.9 - Sepsis, unspecified organism (7) Vomiting Code(s): R11.10 - VOMITING, UNSPECIFIED Qualifiers: Vomiting type: unspecified Vomiting Intractability: non-intractable Nausea presence: with nausea Qualified Code(s): R11.2 - Nausea with vomiting, unspecified (8) Amputated right leg Code(s): Z89.611 - ACQUIRED ABSENCE OF RIGHT LEG ABOVE KNEE (9) Anemia Code(s): D64.9 - ANEMIA, UNSPECIFIED Qualifiers: Anemia type: unspecified type Qualified Code(s): D64.9 - Anemia, unspecified (10) Hydronephrosis Code(s): N13.30 - UNSPECIFIED HYDRONEPHROSIS (11) Hyperlipidemia Code(s): E78.5 - HYPERLIPIDEMIA, UNSPECIFIED (12) Lupus (systemic lupus erythematosus) Code(s): M32.9 - SYSTEMIC LUPUS ERYTHEMATOSUS, UNSPECIFIED Assessment/Plan 73 y.o. female with PMH of Lupus, CKD, hydronephrosis s/p ureteral stents, Rt AKA, HTN, HLD, DM and Lt foot plantar ulcer who was recently admitted and started on treatment for Lt foot erythema/pain suggestive of cellulitis. Pt developed diarrhea with C.diff testing suggestive of possible colitis. Readmitted for fever (103F as outpt) , diarrhea, nausea/vomiting. Diarrhea/C. diff colitis Fever Leukocytosis Nausea/Vomiting -- feels better, wbc nearly normal, fever resolved -- continue Vancomycin po
[2018-07-27] MEDS: VANCOMYCIN 250 MG/5 ML ORAL SOLUTION PO SCH ×4 (00:34→17:04)
[2018-07-27] MEDS: SODIUM CHLORIDE 1,000 ML IV SCH ×2 (04:00→21:45)
[2018-07-27] MEDS: GABAPENTIN 300 MG CAPSULE (FP) PO SCH ×3 (06:06→21:40)
[2018-07-27] MEDS: HEPARIN NA (PORCINE) 5,000 UNITS/ML 1ML VIAL SQ SCH ×3 (06:07→21:40)
[2018-07-27 07:37] LABS: EOS % 2.1 % (0-4.5); HEMATOCRIT 29.7 % (32.4-45.2); HEMOGLOBIN 9.3 GM/dL (10.7-15.3); LYMPH % 18.4 % (8-40); MCH 24.8 pg (25.7-33.7); MCHC 31.3 g/dl (32.0-36.0); MEAN CELL VOLUME 79.1 fl (80-96); MEAN PLT VOLUME 7.8 fl (7.5-11.1); NEUT % 70.5 % (42.8-82.8); PLATELET COUNT 548 K/MM3 (134-434); RBC 3.75 M/mm3 (3.60-5.2); RDW 17.3 % (11.6-15.6); WHITE BLOOD COUNT 11.5 K/mm3 (4.0-10.0)
[2018-07-27 10:27] LABS: ANISOCYTOSIS 1+; MACROCYTOSIS 0
[2018-07-27] MEDS ORDERED: PT OWN MED DRAWER 7, Y5N ONE ×2 (10:32→21:42)
[2018-07-27] MEDS: ASPIRIN 81 MG CHEWABLE TABLETS PO SCH (10:33)
[2018-07-27] MEDS: DOXYCYCLINE HYCLATE 100 MG CAPSULE PO SCH (10:33)
[2018-07-27] MEDS: SERTRALINE HCL 50 MG TABLET (FP) PO SCH (10:33)
[2018-07-27] MEDS: LABETALOL HCL 200 MG TABLET (FP) PO SCH ×2 (10:33→21:40)
[2018-07-27] MEDS: predniSONE 5 MG TABLET (UD) PO SCH (10:33)
[2018-07-27] MEDS: CALCIUM (OYSTER SHELL) 500 MG TABLET (FP) PO SCH ×2 (10:33→21:42)
[2018-07-27] MEDS: LACTOBACILLUS ACIDOPHILUS 1 TABLET PO SCH (10:33)
[2018-07-27] MEDS: NIFEdipine E.R. 30 MG TABLET (FP) PO SCH ×2 (10:33→21:40)
[2018-07-27] MEDS: MAGNESIUM CL 64 MG TABLET.SA PO SCH (10:34)
[2018-07-27 10:52] LABS: PLATELET ESTIMATE INCREASED
--- NOTE | 2018-07-27 10:54 | EKG ---
Test Reason : Blood Pressure : / mmHG Vent. Rate : 090 BPM Atrial Rate : 090 BPM P-R Int : 120 ms QRS Dur : 072 ms QT Int : 342 ms P-R-T Axes : 032 039 042 degrees QTc Int : 418 ms NORMAL SINUS RHYTHM NORMAL ECG WHEN COMPARED WITH ECG OF 17-JUL-2018 15:39, NO SIGNIFICANT CHANGE WAS FOUND Confirmed by YENI BASURTO MD ([id number]) on 07/27/2018 10:54:19 AM Referred By: Confirmed By:YENI BASURTO MD
--- NOTE | 2018-07-27 11:48 | PN ---
Progress Note (short form) - Note Progress Note: Patient was seen briefly. She stated that she was not anxious. Her mood was also described as euthymic. However, she acknowledged that it varies as when she realizes that she can't perform as she had in the past due to physical limitations, she becomes frustrated which leads to anger. We discussed the relationship between anger and depression and reflected on ways to reverse those experiences. The patient was grateful for the visit and plans to follow-up after her discharge. She also was advised that she could request me if she desires another session. 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
--- NOTE | 2018-07-27 13:24 | PN ---
Progress Note, Physician History of Present Illness: patient feeling much better dirrhoea better wbc trending down no complaints - Current Medication List Current Medications: Active Medications Aspirin (Asa -) [address] [facility] Last Admin: 07/27/18 10:33 Dose: 81 mg Calcium Carbonate (Os-Ryan 500mg -) 1,[address] [facility] Last Admin: 07/27/18 10:33 Dose: 1,000 mg Gabapentin (Neurontin -) [address] [facility] Last Admin: 07/27/18 06:06 Dose: 600 mg Heparin Sodium (Porcine) (Heparin -) 5,[address] [facility] Last Admin: 07/27/18 06:07 Dose: 5,000 unit Sodium Chloride (Normal Saline -) 1,000 mls @ 75 mls/hr IV ASDIR [facility] Last Admin: 07/27/18 04:00 Dose: 75 mls/hr Labetalol HCl (Normodyne -) [address] [facility] Last Admin: 07/27/18 10:33 Dose: 300 mg Lactobacillus Acidophilus (Bacid -) [address] [facility] Last Admin: 07/27/18 10:33 Dose: 1 tab Magnesium Chloride (Slow-Mag -) [address] [facility] Last Admin: 07/27/18 10:34 Dose: 64 mg Nifedipine (Procardia Xl -) [address] [facility] Last Admin: 07/27/18 10:33 Dose: 60 mg Ondansetron HCl (Zofran Injection) 4 mg IVPUSH Q6H PRN PRN Reason: NAUSEA AND/OR VOMITING Last Admin: 07/25/18 14:56 Dose: 4 mg Prednisone (Deltasone -) [address] [facility] Last Admin: 07/27/18 10:33 Dose: 5 mg Sertraline HCl (Zoloft -) [address] [facility] Last Admin: 07/27/18 10:33 Dose: 50 mg Tramadol HCl (Ultram -) 50 mg PO DAILY PRN PRN Reason: PAIN LEVEL 6-10 Vancomycin HCl (Vancomycin Oral Solution) [address] [facility] Last Admin: 07/27/18 11:53 Dose: 125 mg - Objective Vital Signs: Vital Signs Temperature 99.6 F 07/27/18 10:00 Pulse Rate 81 07/27/18 10:00 Respiratory Rate 20 07/27/18 10:00 Blood Pressure 129/99 07/27/18 10:00 O2 Sat by Pulse Oximetry (%) 98 07/26/18 21:00 Constitutional: Yes: No Distress, Calm Cardiovascular: Yes: Regular Rate and Rhythm Respiratory: Yes: Regular, CTA Bilaterally Gastrointestinal: Yes: Normal Bowel Sounds, Soft Musculoskeletal: Yes: WNL Extremities: Yes: Other Neurological: Yes: Alert, Oriented Psychiatric: Yes: Alert, Oriented Labs: CBC, BMP 07/27/18 07:00 07/26/18 07:00 Assessment/Plan Problem List - Problems (1) Fever Code(s): R50.9 - FEVER, UNSPECIFIED Qualifiers: Fever type: unspecified Qualified Code(s): R50.9 - Fever, unspecified (2) Acute on chronic renal failure Code(s): N17.9 - ACUTE KIDNEY FAILURE, UNSPECIFIED; N18.9 - CHRONIC KIDNEY DISEASE, UNSPECIFIED Qualifiers: Acute renal failure type: unspecified Chronic kidney disease stage: unspecified stage Qualified Code(s): N17.9 - Acute kidney failure, unspecified ; N18.9 - Chronic kidney disease, unspecified; N18.9 - Chronic kidney disease, unspecified (3) Atherosclerosis of [place] arteries of left leg with ulceration of other part of foot Code(s): I70.245 - ATHSCL [place] ARTERIES OF LEFT LEG W ULCERATION OTH PRT FOOT (4) Left foot infection Code(s): L08.9 - LOCAL INFECTION OF THE SKIN AND SUBCUTANEOUS TISSUE, UNSP (5) PVD (peripheral vascular disease) Code(s): I73.9 - PERIPHERAL VASCULAR DISEASE, UNSPECIFIED (6) Sepsis Code(s): A41.9 - SEPSIS, UNSPECIFIED ORGANISM Qualifiers: Sepsis type: sepsis due to unspecified organism Qualified Code(s): A41.9 - Sepsis, unspecified organism (7) Vomiting Code(s): R11.10 - VOMITING, UNSPECIFIED Qualifiers: Vomiting type: unspecified Vomiting Intractability: non-intractable Nausea presence: with nausea Qualified Code(s): R11.2 - Nausea with vomiting, unspecified (8) Amputated right leg Code(s): Z89.611 - ACQUIRED ABSENCE OF RIGHT LEG ABOVE KNEE (9) Anemia Code(s): D64.9 - ANEMIA, UNSPECIFIED Qualifiers: Anemia type: unspecified type Qualified Code(s): D64.9 - Anemia, unspecified (10) Hydronephrosis Code(s): N13.30 - UNSPECIFIED HYDRONEPHROSIS (11) Hyperlipidemia Code(s): E78.5 - HYPERLIPIDEMIA, UNSPECIFIED (12) Lupus (systemic lupus erythematosus) Code(s): M32.9 - SYSTEMIC LUPUS ERYTHEMATOSUS, UNSPECIFIED Assessment/Plan 73 y.o. female with PMH of Lupus, CKD, hydronephrosis s/p ureteral stents, Rt AKA, HTN, HLD, DM and Lt foot plantar ulcer who was recently admitted and started on treatment for Lt foot erythema/pain suggestive of cellulitis. Pt developed diarrhea with C.diff testing suggestive of possible colitis. Readmitted for fever (103F as outpt) , diarrhea, nausea/vomiting. Diarrhea/C. diff colitis Fever Leukocytosis Nausea/Vomiting -- feels better, wbc nearly normal, fever resolved -- continue Vancomycin po
--- NOTE | 2018-07-27 14:05 | PN ---
Physical Exam: SUBJECTIVE: Patient seen and examined, diarrhea improved, reports minimal with doxycycline. no fevers, chills, tolerating diet well. OBJECTIVE: Vital Signs Period Temp Pulse Resp BP Sys/[place] Pulse Ox Last 24 Hr 98.7 F-99.6 F 80-88 20-20 129-160/63-99 98 GENERAL: The patient is awake, alert, and fully oriented, in no acute distress, better mood today HEAD: Normal with no signs of trauma. EYES: PERRL, extraocular movements intact, sclera anicteric, conjunctiva clear. No ptosis. ENT: Ears normal, nares patent, oropharynx clear without exudates, moist mucous membranes. NECK: Trachea midline, full range of motion, supple. LUNGS: Breath sounds equal, clear to auscultation bilaterally, no wheezes, no crackles, no accessory muscle use. HEART: Regular rate and rhythm, S1, S2 ABDOMEN: Soft, nontender, nondistended, normoactive bowel sounds, no guarding, no rebound, no hepatosplenomegaly, no masses. EXTREMITIES: right BKA, left foot inner sole with induration chronic skin changes and mild tenderness, no fluctuation or discharge noted PSYCH: anxious, tearful SKIN: Warm, dry, normal turgor, no rashes or lesions noted Laboratory Results - last 24 hr 07/26/18 07/27/18 07:00 07:00 WBC 11.5 H RBC 3.75 Hgb 9.3 L Hct 29.7 L MCV 79.1 L MCH 24.8 L MCHC 31.3 L RDW 17.3 H Plt Count 548 H MPV 7.8 Absolute Neuts (auto) 8.1 H Neutrophils % 70.5 Neutrophils % (Manual) 65.3 68.0 Band Neutrophils % 2.0 1.0 Lymphocytes % 18.4 Lymphocytes % (Manual) 16.8 D 21.0 D Monocytes % 8.0 Monocytes % (Manual) 8 9 Eosinophils % 2.1 Eosinophils % (Manual) 2.0 D 0.0 D Basophils % 1.0 Basophils % (Manual) 1.0 0.0 Myelocytes % (Man) 0 0 Promyelocytes % (Man) 0 0 Blast Cells % (Manual) 0 0 Nucleated RBC % 0 Metamyelocytes 0 1 D Hypochromia 1+ 0 Platelet Estimate Increased Increased Platelet Comment Present Polychromasia 2+ 0 Poikilocytosis 0 0 Anisocytosis 2+ 1+ Microcytosis 1+ 1+ Macrocytosis 0 0 Stomatocytes 1+ [place] Cells 1+ Active Medications Generic Name Dose Route Start Last Admin Trade Name Freq PRN Reason Stop Dose Admin Aspirin 81 mg 07/25/18 10:00 07/27/18 10:33 Asa - PO 81 mg DAILY [facility] Administration Calcium Carbonate 1,000 mg 07/25/18 10:00 07/27/18 10:33 Os-Ryan 500mg - PO 1,000 mg BID [facility] Administration Gabapentin 600 mg 07/24/18 22:00 07/27/18 06:06 Neurontin - PO 600 mg TID [facility] Administration Heparin Sodium (Porcine) 5,000 unit 07/25/18 06:00 07/27/18 06:07 Heparin - SQ 5,000 unit TID [facility] Administration Sodium Chloride 1,000 mls @ 75 mls/hr 07/24/18 18:15 07/27/18 04:00 Normal Saline - IV 75 mls/hr ASDIR [facility] Administration Labetalol HCl 300 mg 07/26/18 22:00 07/27/18 10:33 Normodyne - PO 300 mg BID [facility] Administration Lactobacillus Acidophilus 1 tab 07/25/18 10:00 07/27/18 10:33 Bacid - PO 1 tab DAILY [facility] Administration Magnesium Chloride 64 mg 07/25/18 10:00 07/27/18 10:34 Slow-Mag - PO 64 mg DAILY [facility] Administration Nifedipine 60 mg 07/24/18 22:15 07/27/18 10:33 Procardia Xl - PO 60 mg BID [facility] Administration Ondansetron HCl 4 mg 07/25/18 11:51 07/25/18 14:56 Zofran Injection IVPUSH 4 mg Q6H PRN Administration NAUSEA AND/OR VOMITING Prednisone 5 mg 07/25/18 10:00 07/27/18 10:33 Deltasone - PO 5 mg DAILY [facility] Administration Sertraline HCl 50 mg 07/25/18 10:00 07/27/18 10:33 Zoloft - PO 50 mg DAILY [facility] Administration Tramadol HCl 50 mg 07/24/18 18:15 Ultram - PO DAILY PRN PAIN LEVEL 6-10 Vancomycin HCl 125 mg 07/24/18 18:00 07/27/18 11:53 Vancomycin Oral Solution PO 125 mg Q6HPO [facility] Administration ASSESSMENT/PLAN: 73 yof with PMhx of 73 yof with PMHx of Lupus since 1978 on Prednisone/plaquenil , PAD s/p right AKA 1996/s/p iliac stents (last in 2010) ?lupus nephritis, CKD ( recent Cr 1.2), Anemia, lymphadenopathy (benign per records), HTN, HLD, recently admitted with LLE cellulitis/abscess s/p I&D, recently admitted with left leg redness/swelling, treated with aztreonam, hospital course complicated by diarrhea, with C difficile positive antigen and neg toxin, neg CT A/p for infection, discharged yesterday on oral doxycycline and oral vancomycin re- admitted with reported fevers and ongoing diarrhea. -Acute C difficile diarrhea with sepsis -Recent Left foot cellulitis (recent left metatarsal wound incision and I&D) -PAD s/p Left tibial artery atherectomy/angioplasty x 2 05/20/2018 -Lupus since 1978 on prednisone/Plaquenil -PAD s/p right AKA 1996, PCI last in 2010 -CKD (?lupus nephritis) -Anemia -Lymphadenopathy -HTN -HLD Plan: Reports fevers 103 at home but has been afebrile here, no concerning diarrhea. WBC better, no new concerns. C difficile PCR neg and recent CT A/P with no concerns. PO vancomycin. Doxycycline held per ID. Diarrhea more related to doxycycline as discussed with patient. Psychology input appreciated. Patient in better mood today. Suspect underlying depression from multiple hospitalizations contributory. Nausea resolved after d/cing IV flagyl. Continue labetalol 300 mg BID (increased inhouse) Continue nifedipine/prednisone. Resume plaquenil on dc PT eval noted. Offered SNF given recent frequent hospitalizations. patient declines and wants to go home with services CM informed Plan for d/c home with services tomorrow if no concerns. Sister already picked up vancomycin from pharmacy that was pre-authorized on prior discharge. Plan discussed with nursing. Visit type - Emergency Visit Emergency Visit: Yes ED Registration Date: 07/24/18 Care time: The patient presented to the Emergency Department on the above date and was hospitalized for further evaluation of their emergent condition. - New Patient This patient is new to me today: No - Critical Care Critical Care patient: No - Discharge Referral Referred to [facility] No
[2018-07-28] MEDS: HEPARIN NA (PORCINE) 5,000 UNITS/ML 1ML VIAL SQ SCH ×2 (05:48→14:55)
[2018-07-28] MEDS: GABAPENTIN 300 MG CAPSULE (FP) PO SCH ×2 (05:48→14:55)
[2018-07-28] MEDS: VANCOMYCIN 250 MG/5 ML ORAL SOLUTION PO SCH ×4 (05:49→17:54)
[2018-07-28 07:07] LABS: BASO % 1.2 % (0-2.0); EOS % 2.3 % (0-4.5); HEMATOCRIT 26.8 % (32.4-45.2); HEMOGLOBIN 8.6 GM/dL (10.7-15.3); LYMPH % 22.4 % (8-40); MCH 25.4 pg (25.7-33.7); MCHC 31.9 g/dl (32.0-36.0); MEAN CELL VOLUME 79.4 fl (80-96); MEAN PLT VOLUME 7.9 fl (7.5-11.1); MONO % 8.7 % (3.8-10.2); NEUT % 65.4 % (42.8-82.8); PLATELET COUNT 496 K/MM3 (134-434); RBC 3.37 M/mm3 (3.60-5.2); RDW 16.5 % (11.6-15.6); WHITE BLOOD COUNT 11.1 K/mm3 (4.0-10.0)
--- NOTE | 2018-07-28 10:05 | DS ---
Physical Exam: SUBJECTIVE: Patient seen and examined, pleasant, diarrhea improved, feels its related to when she takes antibiotics. No nausea, vomiting, fevers, chills, new leg pain or concerns. OBJECTIVE: Vital Signs Period Temp Pulse Resp BP Sys/[place] Pulse Ox Last 24 Hr 98.1 F-98.8 F 76-86 18-20 103-154/58-80 95 PHYSICAL EXAM GENERAL: The patient is awake, alert, and fully oriented, in no acute distress, better mood today HEAD: Normal with no signs of trauma. EYES: PERRL, extraocular movements intact, sclera anicteric, conjunctiva clear. No ptosis. ENT: Ears normal, nares patent, oropharynx clear without exudates, moist mucous membranes. NECK: Trachea midline, full range of motion, supple. LUNGS: Breath sounds equal, clear to auscultation bilaterally, no wheezes, no crackles, no accessory muscle use. HEART: Regular rate and rhythm, S1, S2 ABDOMEN: Soft, nontender, nondistended, normoactive bowel sounds, no guarding, no rebound, no hepatosplenomegaly, no masses. EXTREMITIES: right BKA, left foot inner sole with induration chronic skin changes and mild tenderness, no fluctuation or discharge noted PSYCH: anxious, tearful SKIN: Warm, dry, normal turgor, no rashes or lesions noted LABS Laboratory Results - last 24 hr 07/27/18 07/28/18 07:00 06:00 WBC 11.1 H RBC 3.37 L Hgb 8.6 L Hct 26.8 L MCV 79.4 L MCH 25.4 L MCHC 31.9 L RDW 16.5 H Plt Count 496 H MPV 7.9 Absolute Neuts (auto) 7.2 Neutrophils % 65.4 Neutrophils % (Manual) 68.0 Band Neutrophils % 1.0 Lymphocytes % 22.4 D Lymphocytes % (Manual) 21.0 D Monocytes % 8.7 Monocytes % (Manual) 9 Eosinophils % 2.3 Eosinophils % (Manual) 0.0 D Basophils % 1.2 Basophils % (Manual) 0.0 Myelocytes % (Man) 0 Promyelocytes % (Man) 0 Blast Cells % (Manual) 0 Nucleated RBC % 0 Metamyelocytes 1 D Hypochromia 0 Platelet Estimate Increased Polychromasia 0 Poikilocytosis 0 Anisocytosis 1+ Microcytosis 1+ Macrocytosis 0 Microbiology 07/24/18 18:30 Blood - Peripheral Venous Blood Culture - Preliminary NO GROWTH OBTAINED AFTER 72 HOURS, INCUBATION TO CONTINUE FOR 2 DAYS. 07/24/18 18:30 Blood - Peripheral Venous Blood Culture - Preliminary NO GROWTH OBTAINED AFTER 72 HOURS, INCUBATION TO CONTINUE FOR 2 DAYS. C difficile PCR neg HOSPITAL COURSE: Date of Admission:07/24/18 Date of Discharge: 07/28/18 Minutes to complete discharge: 40 Discharge Summary Reason For Visit: SYSTEMIC LUPUS ERYTHEMATOSUS,CLOSTRIDIUM DIFFICILE Current Active Problems Anxiety about health (Acute) C. difficile diarrhea (Acute) Depression due to physical illness (Acute) Fever (Acute) Hospital Course: 73 yof with PMhx of 73 yof with PMHx of Lupus since 1978 on Prednisone/plaquenil , PAD s/p right AKA 1997/s/p iliac stents (last in 2010) ?lupus nephritis, CKD ( recent Cr 1.2), Anemia, lymphadenopathy (benign per records), HTN, HLD, recently admitted with LLE cellulitis/abscess s/p I&D, recently admitted with left leg redness/swelling, treated with aztreonam, hospital course complicated by diarrhea, with C difficile positive antigen and neg toxin, neg CT A/p for infection, discharged a day prior on oral doxycycline and oral vancomycin re- admitted with reported fevers and ongoing diarrhea. She was initially placed on IV flagyl and oral vancomycin and continued on oral doxycycline. She had worsening nausea which resolved after discontinuation of her flagyl. Infectious disease was consulted and her doxycycline was discontinued. Her C difficile PCR came back negative. She had no fevers in the hospital and her diarrhea was more related around taking her antibiotics. She was noted to be depressed and having concerns adjusting to her illness, psychology was consulted with Dr. Galloway. She was continued on zoloft and her mood improved during her stay. She was evaluated by physical therapy. SNF option was offered given frequent hospitalizations which patient declined. She will be discharged in stable condition on additional 10 days of oral vancomycin by Infectious disease recommendations. Her vancomycin was pre-authorized on previous admission however, pharmacy failed to dispense the medication. Copay ($158) was again confirmed with pharmacy which patient was agreable to and patient's sister has already picked up the medication prior to discharge. Condition: Stable - Instructions Diet, Activity, Other Instructions: MEDICATIONS: continue all your home medications as before. Take antibiotic oral vancomycin prescribed on recent discharge, for 10 more days (total 40 capsules) Please ensure to maintain adequate hydration FOLLOW UP: With Dr. Montoya in [address] Cervantes, Dr. Daniels in 1 -2 weeks With psychiatry in 1-2 weeks (you were seen by psychologist Dr. Galloway in the hospital, contact information provided) If you notice any new fevers, chills, diarrhea, abdominal pain, leg pain or any new concerns, please call 911 or come to the ED. Referrals: Maggie Cervantes MD [Staff Physician] - Yaya Montoya MD [Primary Care Provider] - Fabrizio Galloway PSYD [Psychologist] - Niki Daniels DPM [Staff Physician] - Disposition: VNS/HOME HEALTH CARE - Home Medications Comprehensive Discharge Medication List: Ambulatory Orders Hydroxychloroquine Sulfate [Plaquenil] 200 mg PO DAILY 10/20/15 Nifedipine [Procardia Xl] 60 mg PO BID 10/20/15 predniSONE [Deltasone -] 5 mg PO DAILY 10/20/15 Iron,Carbonyl [Feosol] 65 mg PO DAILY 11/20/15 Vitamin B Complex [B Complex # 1] 1 each PO DAILY 11/20/15 Labetalol HCl 200 mg PO BID 07/22/17 Calcium Carbonate [Calcium] 1,000 mg PO DAILY 05/17/18 Famotidine [Pepcid] 20 mg PO DAILY 05/17/18 Gabapentin [Neurontin -] 600 mg PO TID 05/17/18 Magnesium Chloride [Slow-Mag -] 64 mg PO DAILY 05/17/18 Multivit-Min36/Iron/Folic Acid [Geritol Complete Tablet] 1 each PO DAILY Aspirin [ASA -] 81 mg PO DAILY tab.chew 06/01/18 Tramadol HCl [Ultram] 50 mg PO DAILY #14 tablet MDD 1 06/04/18 Lactobacillus Acidophilus [Bacid -] 1 tab PO DAILY #30 tab 07/21/18 Sertraline HCl [Zoloft -] 50 mg PO DAILY #30 tablet 07/21/18 Vancomycin HCl [Vancocin HCl] 125 mg PO QID 10 Days #40 capsule 07/28/18 This patient is new to me today: No Emergency Visit: Yes ED Registration Date: 07/24/18 Care time: The patient presented to the Emergency Department on the above date and was hospitalized for further evaluation of their emergent condition. Critical Care patient: No - Discharge Referral Referred to [facility] No
[2018-07-28] MEDS ORDERED: PT OWN MED DRAWER 7, Y5N ONE (10:37)
[2018-07-28] MEDS: LABETALOL HCL 200 MG TABLET (FP) PO SCH (10:39)
[2018-07-28] MEDS: MAGNESIUM CL 64 MG TABLET.SA PO SCH (10:39)
[2018-07-28] MEDS: ASPIRIN 81 MG CHEWABLE TABLETS PO SCH (10:39)
[2018-07-28] MEDS: LACTOBACILLUS ACIDOPHILUS 1 TABLET PO SCH (10:40)
[2018-07-28] MEDS: CALCIUM (OYSTER SHELL) 500 MG TABLET (FP) PO SCH (10:40)
[2018-07-28] MEDS: predniSONE 5 MG TABLET (UD) PO SCH (10:40)
[2018-07-28] MEDS: NIFEdipine E.R. 30 MG TABLET (FP) PO SCH (10:40)
[2018-07-28] MEDS: SERTRALINE HCL 50 MG TABLET (FP) PO SCH (10:40)
[2018-07-28 10:46] VITALS: BP 156/58; PULSE 78; TEMP 98.9
--- NOTE | 2018-07-28 12:40 | PN ---
Progress Note, Physician - Current Medication List Current Medications: Active Medications Aspirin (Asa -) 81 mg PO DAILY [facility] Last Admin: 07/28/18 10:39 Dose: 81 mg Calcium Carbonate (Os-Ryan 500mg -) 1,000 mg PO BID [facility] Last Admin: 07/28/18 10:40 Dose: 1,000 mg Gabapentin (Neurontin -) 600 mg PO TID [facility] Last Admin: 07/28/18 05:48 Dose: 600 mg Heparin Sodium (Porcine) (Heparin -) 5,000 unit SQ TID [facility] Last Admin: 07/28/18 05:48 Dose: 5,000 unit Sodium Chloride (Normal Saline -) 1,000 mls @ 75 mls/hr IV ASDIR [facility] Last Admin: 07/27/18 21:45 Dose: 75 mls/hr Labetalol HCl (Normodyne -) 300 mg PO BID [facility] Last Admin: 07/28/18 10:39 Dose: 300 mg Lactobacillus Acidophilus (Bacid -) 1 tab PO DAILY [facility] Last Admin: 07/28/18 10:40 Dose: 1 tab Magnesium Chloride (Slow-Mag -) 64 mg PO DAILY [facility] Last Admin: 07/28/18 10:39 Dose: 64 mg Nifedipine (Procardia Xl -) 60 mg PO BID [facility] Last Admin: 07/28/18 10:40 Dose: 60 mg Ondansetron HCl (Zofran Injection) 4 mg IVPUSH Q6H PRN PRN Reason: NAUSEA AND/OR VOMITING Last Admin: 07/25/18 14:56 Dose: 4 mg Prednisone (Deltasone -) 5 mg PO DAILY [facility] Last Admin: 07/28/18 10:40 Dose: 5 mg Sertraline HCl (Zoloft -) 50 mg PO DAILY [facility] Last Admin: 07/28/18 10:40 Dose: 50 mg Tramadol HCl (Ultram -) 50 mg PO DAILY PRN PRN Reason: PAIN LEVEL 6-10 Vancomycin HCl (Vancomycin Oral Solution) 125 mg PO Q6HPO [facility] Last Admin: 07/28/18 12:24 Dose: 125 mg - Objective Vital Signs: Vital Signs Temperature 98.9 F 07/28/18 10:45 Pulse Rate 78 07/28/18 10:45 Respiratory Rate 18 07/28/18 10:45 Blood Pressure 156/58 L 07/28/18 10:45 O2 Sat by Pulse Oximetry (%) 98 07/28/18 10:46 Labs: CBC, BMP 07/28/18 06:00 07/26/18 07:00
== END 2018-07-28 18:32 | disposition home or self-care (01) | DRG 872 ==
LOC: JER 16:30 → JERBED 18:00 → J6S 20:36
PROVIDERS: ADMIT Hospitalist; ATTEND Hospitalist
DX: A41.9 Sepsis, unspecified organism (principal); A04.72 Enterocolitis due to Clostridium difficile, not specified as recurrent; L98.498 Non-pressure chronic ulcer of skin of other sites with other specified severity; N13.30 Unspecified hydronephrosis; E11.622 Type 2 diabetes mellitus with other skin ulcer; E78.5 Hyperlipidemia, unspecified; M32.9 Systemic lupus erythematosus, unspecified; I25.10 Atherosclerotic heart disease of native coronary artery without angina pectoris; I70.245 Atherosclerosis of native arteries of left leg with ulceration of other part of foot; K21.9 Gastro-esophageal reflux disease without esophagitis; L08.9 Local infection of the skin and subcutaneous tissue, unspecified; D64.9 Anemia, unspecified; R59.1 Generalized enlarged lymph nodes; D72.829 Elevated white blood cell count, unspecified; F06.31 Mood disorder due to known physiological condition with depressive features; F41.8 Other specified anxiety disorders; E11.51 Type 2 diabetes mellitus with diabetic peripheral angiopathy without gangrene; E11.59 Type 2 diabetes mellitus with other circulatory complications; E11.22 Type 2 diabetes mellitus with diabetic chronic kidney disease; I12.9 Hypertensive chronic kidney disease with stage 1 through stage 4 chronic kidney disease, or unspecified chronic kidney disease; N18.9 Chronic kidney disease, unspecified; Z95.5 Presence of coronary angioplasty implant and graft; Z86.718 Personal history of other venous thrombosis and embolism; Z89.611 Acquired absence of right leg above knee
CPT/HCPCS: 36415; 71045-TC-FY; 80053; 81003; 82962; 83605; 83735; 84100; 85025; 87040; 93005; 93010; 97116-GP; 97162-GP; 99282-25; J1644; J7030

== ENCOUNTER 2018-09-25 07:05 | Day surgery (SDC) | payer BC ==
[2018-09-24 10:03] VITALS: BMI 26.6
[2018-09-25] MEDS ORDERED: ACETAMINOPHEN 1000 MG/100 ML VIAL (NON FORMULARY) IVPB ONE (07:23)
--- NOTE | 2018-09-25 07:23 | HP ---
History & Physical Update - History History: No Change - Physical Physical: No Change - Assessment Assessment: No Change - Plan Plan: No Change
[2018-09-25] MEDS ORDERED: DEXTROSE 5%-0.45% SALINE 1,000 ML IV SCH (07:30)
[2018-09-25] MEDS ORDERED: IBUPROFEN 800 MG/8 ML IJ IVPB SCH (07:30)
[2018-09-25] MEDS ORDERED: PROPOFOL 20 ML ONE (08:18)
[2018-09-25] MEDS ORDERED: LIDOCAINE HCL/PF 2% SDV 5ML VIAL ONE (08:19)
[2018-09-25] MEDS ORDERED: DEXAMETHASONE SOD PHOSPHATE 4 MG/1 ML VIAL ONE (08:19)
[2018-09-25] MEDS ORDERED: ceFAZolin SODIUM 1 GM VIAL ONE (08:41)
[2018-09-25] MEDS ORDERED: ceFAZolin SODIUM 1 GM VIAL IVPB ONE (08:43)
[2018-09-25] MEDS ORDERED: ACETAMINOPHEN INJECTION 100 ML IVPB ONE (09:26)
[2018-09-25] MEDS ORDERED: oxyCODONE HCL 5 MG TABLET PO PRN ×2 (10:13→10:18)
[2018-09-25] MEDS ORDERED: ONDANSETRON 4 MG/2 ML VIAL IVPUSH PRN (10:13)
[2018-09-25] MEDS ORDERED: LACTATED RINGERS SOLUTION 1,000 ML IV SCH (10:15)
[2018-09-25 12:38] VITALS: BP 130/60; PULSE 76; TEMP 97.4
--- NOTE | 2018-09-29 17:00 | PATH ---
Surgical Pathology Report Patient Name: OLEG PERERA [facility]. Rec. #: [id number] /Age/Gender: 1945 (Age: 73) / F Account: [id number] Location: [facility] Taken: 09/25/2018 Received: 09/25/2018 Reported: 09/29/2018 Physicians: Isaak Mead M.D. Specimen(s) Received URETERAL STENT Clinical History Gross hematuria Final Diagnosis URETERAL STENT, REMOVAL: CONSISTENT WITH URETERAL STENT. GROSS EXAMINATION ONLY. Electronically Signed Shashank Patel M.D. Gross Description Received fresh labeled "ureteral stent," is a 33 cm in length blue-green, coiled portion of tubing, consistent with a ureteral stent. No soft tissue is present. No sections are submitted, gross only. /09/28/2018 [facility]09/28/2018
--- NOTE | 2018-10-14 06:28 | OP ---
DATE OF OPERATION: 09/25/2018 SURGEON: Isaak Mead MD PREOPERATIVE DIAGNOSIS: Hydronephrosis. POSTOPERATIVE DIAGNOSIS: Hydronephrosis. PROCEDURE: Cystoscopy and left ureteral stent change. PREOPERATIVE INDICATIONS: The patient is a 73-year-old female with chronic left hydronephrosis. She comes in today for stent change. DESCRIPTION OF PROCEDURE: The patient was brought to the OR, placed on the table in the supine position. She was given general anesthesia and IV antibiotics and placed in the modified lithotomy position. The groin was prepped and draped sterilely. Cystoscopy was performed. Stent was seen emerging from the left ureteral orifice. This was removed. A guidewire was passed up into the left kidney and over that a 6 x 24 double-[id number] ureteral stent was placed. The bladder was emptied. The patient was woken up. ISAAK MEAD M.D. [id number]
== END 2018-09-25 11:55 | disposition home or self-care (01) ==
LOC: JASU-SURG 07:05
PROVIDERS: ATTEND Urology
PROC: 0T778DZ Dilation of Left Ureter with Intraluminal Device, Via Natural or Artificial Opening Endoscopic (ICD-10-PCS; principal; 2018-09-25 08:30)
PROC: 0TP98DZ Removal of Intraluminal Device from Ureter, Via Natural or Artificial Opening Endoscopic (ICD-10-PCS; 2018-09-25 08:30)
DX: N13.30 Unspecified hydronephrosis (principal)
CPT/HCPCS: 76000-TC-FY; 88300-TC; 94760; J0131

== ENCOUNTER 2018-12-30 11:01 | Inpatient (IN) | payer BC, OTHER ==
[2018-12-30 11:06] VITALS: BMI 26.7
[2018-12-30] MEDS ORDERED: VANCOMYCIN 1,000 MG in DEXTROSE 5%-WATER - 250 ML IVPB ONE (12:28)
[2018-12-30] MEDS ORDERED: AZTREONAM 1 GM VIAL (RESTRICTED TO ID) IVPB ONE (12:28)
[2018-12-30] MEDS ORDERED: AZTREONAM 1 GM VIAL (RESTRICTED TO ID) ONE (14:27)
[2018-12-30] MEDS ORDERED: VANCOMYCIN 1 GRAM (PRE-DOCKED) 1,000 MG/250 ML BAG IVPB ONE (14:28)
[2018-12-30 14:30] LABS: BASO % 0.9 % (0-2.0); EOS % 0.9 % (0-4.5); HEMATOCRIT 31.5 % (32.4-45.2); HEMOGLOBIN 10.1 GM/dL (10.7-15.3); LYMPH % 8.4 % (8-40); MCH 24.7 pg (25.7-33.7); MEAN CELL VOLUME 77.3 fl (80-96); MEAN PLT VOLUME 8.1 fl (7.5-11.1); MONO % 3.6 % (3.8-10.2); NEUT % 86.2 % (42.8-82.8); PLATELET COUNT 406 K/MM3 (134-434); RBC 4.07 M/mm3 (3.60-5.2); RDW 18.1 % (11.6-15.6); WHITE BLOOD COUNT 12.3 K/mm3 (4.0-10.0)
[2018-12-30 14:39] LABS: INR 1.01 (0.83-1.09); PROTHROMBIN TIME (PATIENT) 11.9 SEC (9.7-13.0)
[2018-12-30 14:42] LABS: ACTIVATED PTT 28.8 SECONDS (25.2-36.5)
--- NOTE | 2018-12-30 14:44 | PDOC ---
Documentation entered by Ezra Bustamante SCRIBE, acting as scribe for Sarah Scales MD. Sarah Scales MD: This documentation has been prepared by the Robby quintana Daniel, SCRIBE, under my direction and personally reviewed by me in its entirety. I confirm that the documentation accurately reflects all work, treatment, procedures, and medical decision making performed by me. History of Present Illness - General Chief Complaint: Wound Stated Complaint: WOUNDCARE Time Seen by Provider: 12/30/18 11:55 History Source: Patient Exam Limitations: No Limitations - History of Present Illness Initial Comments: 12/30/18 12:27 The patient is a 73 year old female with a past medical history of lupus, CAD, peripheral artery disease s/p bilateral lower extremity stents, HTN, HLD, and R AKA here today for evaluation of left foot ulcer. The patient reports that she has had a persistent left foot ulcer after wearing a special shoe prescribed to her by her vascular doctor. She reports that as per Dr. Rodriguez she had been soaking her foot in warm water and vinegar and has been taking levaquin for 2 weeks. She states that Dr. Rodriguez told her to come in for antibiotics as the levaquin has not worked. Patient denies headache, lightheadedness. Denies fever, chills. Denies chest pain, shortness of breath. Denies nausea, vomiting, diarrhea, abdominal pain. Allergies: sulfa, codeine, penicillins, lactose, ranitidine PCP: Yaya Zapata Copy Reader: Juan Manuel Rodriguez Past History - Past Medical History Allergies/Adverse Reactions: Allergies Allergy/AdvReac Type Severity Reaction Status Date / Time Sulfa (Sulfonamide Allergy Severe RASH,VOMITI Verified 12/30/18 11:06 Antibiotics) NG,DIZZINES S codeine [Codeine] Allergy Hives Verified 12/30/18 11:06 Penicillins Allergy Hives Verified 12/30/18 11:06 lactose AdvReac Verified 12/30/18 11:06 ranitidine [From Zantac] AdvReac headache Verified 12/30/18 11:06 Home Medications: Ambulatory Orders Hydroxychloroquine Sulfate [Plaquenil] 200 mg PO DAILY 10/20/15 Nifedipine [Procardia Xl] 60 mg PO BID 10/20/15 predniSONE [Deltasone -] 7 mg PO DAILY 10/20/15 Iron,Carbonyl [Feosol] 65 mg PO DAILY 11/20/15 Vitamin B Complex [B Complex # 1] 1 each PO DAILY 11/20/15 Labetalol HCl 200 mg PO TID 07/22/17 Calcium Carbonate [Calcium] 1,000 mg PO DAILY 05/17/18 Famotidine [Pepcid] 20 mg PO DAILY 05/17/18 Gabapentin [Neurontin -] 600 mg PO TID 05/17/18 Magnesium Chloride [Slow-Mag -] 64 mg PO DAILY 05/17/18 Multivit-Min36/Iron/Folic Acid [Geritol Complete Tablet] 1 each PO DAILY Aspirin [ASA -] 81 mg PO DAILY tab.chew 06/01/18 Cholecalciferol (Vitamin D3) [Vitamin D3 -] 1,000 units PO DAILY 09/17/18 Anemia: Yes (chronic) Asthma: No Cancer: No Cardiac Disorders: Yes (Leg stents, CAD, PVD, vasculitis) CVA: No COPD: No CHF: No DVT: Yes (by history) Dementia: No Diabetes: No Dialysis: No GI Disorders: Yes (GERD) Disorders: Yes (HAS URETERAL STENT) HTN: Yes Hypercholesterolemia: Yes Kidney Stones: Yes Liver Disease: No Psychiatric Problems: No Seizures: No Thyroid Disease: No - Surgical History Abdominal Surgery: Yes (10/2015 mass removed-negative) Appendectomy: No Cardiac Surgery: Yes (STENTS OCTOBER 2010 IN LEFT LEG) Cholecystectomy: No Lung Surgery: No Neurologic Surgery: No Orthopedic Surgery: Yes ([place] BUENROSTRO (1996)) - Immunization History Immunization Up to Date: Yes - Suicide/Smoking/Psychosocial Hx Smoking Status: No Smoking History: Never smoked Have you smoked in the past 12 months: No Number of Cigarettes Smoked Daily: 0 If you are a former smoker, when did you quit?: 1979 Hx Alcohol Use: No Drug/Substance Use Hx: No Substance Use Type: None Hx Substance Use Treatment: No Review of Systems - Review of Systems Able to Perform ROS?: Yes Comments:: 12/30/18 12:27 GENERAL/CONSTITUTIONAL: No fever or chills. No weakness. HEAD, EYES, EARS, NOSE AND THROAT: No change in vision. No ear pain or discharge. No sore throat. GASTROINTESTINAL: No nausea, vomiting, diarrhea or constipation. GENITOURINARY: No dysuria, frequency, or change in urination. CARDIOVASCULAR: No chest pain or shortness of breath. RESPIRATORY: No cough, wheezing, or hemoptysis. MUSCULOSKELETAL: No joint or muscle swelling or pain. No neck or back pain. SKIN: +left foot ulcer by the arch with redness. NEUROLOGIC: No headache, vertigo, loss of consciousness, or change in strength/ sensation. ENDOCRINE: No increased thirst. No abnormal weight change. HEMATOLOGIC/LYMPHATIC: No anemia, easy bleeding, or history of blood clots. ALLERGIC/IMMUNOLOGIC: No hives or skin allergy. *Physical Exam - Vital Signs Last Vital Signs Temp Pulse Resp BP Pulse Ox 98.0 F 75 16 144/53 L 96 12/30/18 11:04 12/30/18 11:04 12/30/18 11:12/30/18 11:12/30/18 11:04 - Physical Exam Comments: 12/30/18 12:28 GENERAL: Awake, alert, and fully oriented, in no acute distress HEAD: No signs of trauma EYES: PERRLA, EOMI, sclera anicteric, conjunctiva clear ENT: Auricles normal inspection, hearing grossly normal, nares patent, oropharynx clear without exudates. Moist mucosa NECK: Normal ROM, supple, no lymphadenopathy, JVD, or masses LUNGS: Breath sounds equal, clear to auscultation bilaterally. No wheezes, and no crackles HEART: Regular rate and rhythm, normal S1 and S2, no murmurs, rubs or gallops ABDOMEN: Soft, nontender, normoactive bowel sounds. No guarding, no rebound. No masses EXTREMITIES: +left foot ulcer on the arch with surrounding erythema, edema and warmth left foot. 2+ TP pulse (marked). Palpable DP pulse. +right above knee amputation. Otherwise, Normal range of motion, no edema. No clubbing or cyanosis. No cords, or tenderness BACK: No midline spinal tenderness in cervical/thoracic/lumbar region NEUROLOGICAL: Normal speech, cranial nerves intact, equal strength and sensation b/l SKIN: As noted above, oterhwise warm, Dry, normal turgor, no rashes or lesions noted. Heart Score/ECG Review #1 12/30/18 14:43 EKG read and int by me: NSR, rate 72, normal axis and intervals, no LISA or TWI ED Treatment Course - LABORATORY CBC & Chemistry Diagram: 12/30/18 13:57 12/30/18 13:57 - RADIOLOGY Radiology Studies Ordered: Category Date Time Status CHEST PA & LAT [RAD] Stat Radiology 12/30/18 12:47 Ordered FOOT-LEFT [RAD] Stat Radiology 12/30/18 12:20 Ordered Medical Decision Making - Medical Decision Making 12/30/18 14:42 73yo F hx SLE presents to the ED with L foot arch infected ulcer, failed outpt course of levaquin Pt requires admission for IV abx She has no systemic signs of infection Will cover with vancomycin and aztreonem (she has been covered with this in the past) Plan for labs, XR, admit 12/30/18 17:[address] Jha, pt accepted for admission to Dr. Gibbons's service Case discussed in detail with admitting physician including history, physical exam and ancillary studies. Admitting physician has assumed care for the patient, will follow all pending diagnostics and will complete the evaluation and treatment. *DC/Admit/Observation/Transfer Diagnosis at time of Disposition: Wound infection - Discharge Dispostion Condition at time of disposition: Stable Decision to Admit order Date/Time: Decision to Admit Order Category Date Time Status Decision to Admit to Hospital Routine Admission 12/30/18 12:48 Active - Referrals - Patient Instructions - Post Discharge Activity - Attestations Physician Attestion: 12/30/18 17:15 I, Dr. Sarah Scales MD, attest that this document has been prepared under my direction and personally reviewed by me in its entirety. I further attest, that it accurately reflects all work, treatment, procedures and medical decision -making performed by me.
[2018-12-30 14:57] LABS: ALBUMIN 3.1 g/dl (3.4-5.0); BILIRUBIN,TOTAL 0.2 mg/dL (0.2-1); BLOOD UREA NITROGEN 21.8 mg/dL (7-18); CALCIUM 9.3 mg/dL (8.5-10.1); CREATININE 1.1 mg/dL (0.55-1.3); POTASSIUM 4.4 mmol/L (3.5-5.1); TOT PROT 7.4 g/dl (6.4-8.2)
--- NOTE | 2018-12-30 18:26 | HP ---
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 Pt states she was recently at [facility] for similar. She had an MRI there, which did not show OM. She has had several treatments of ABx for similar problem recently and has been seen inpt and outpt by podiatry. As an outpt, she was given an orthopedic shoe, which she states was rubbing on her foot and caused the ulcer. She has seen the manager procurement, tried foot baths, creams, ointments, and po antibiotics, all of which have not resolved the issue. Denies fever, chills, n/v/d, sob, cp. ER course was notable for: (1) leukocytosis, elevated CRP/ESR (2) foot xr (3) Recent Travel: denies PAST MEDICAL HISTORY: as above PAST SURGICAL HISTORY: as above Social History: Smoking: denies Alcohol: denies Drugs: denies Family History: discussed, noncontributory Allergies Sulfa (Sulfonamide Antibiotics) Allergy (Severe, Verified 12/30/18 11:06) RASH,VOMITING,DIZZINESS codeine [Codeine] Allergy (Verified 12/30/18 11:06) Hives Penicillins Allergy (Verified 12/30/18 11:06) Hives lactose Adverse Reaction (Verified 12/30/18 11:06) ranitidine [From Zantac] Adverse Reaction (Verified 12/30/18 11:06) headache HOME MEDICATIONS: Home Medications Medication Instructions Recorded Hydroxychloroquine Sulfate 200 mg PO DAILY 10/20/15 [Plaquenil] Nifedipine [Procardia Xl] 60 mg PO BID 10/20/15 predniSONE [Deltasone -] 7 mg PO DAILY 10/20/15 Iron,Carbonyl [Feosol] 65 mg PO DAILY 11/20/15 Vitamin B Complex [B Complex # 1] 1 each PO DAILY 11/20/15 Labetalol HCl 200 mg PO TID 07/22/17 Calcium Carbonate [Calcium] 1,000 mg PO DAILY 05/17/18 Famotidine [Pepcid] 20 mg PO DAILY 05/17/18 Gabapentin [Neurontin -] 600 mg PO TID 05/17/18 Magnesium Chloride [Slow-Mag -] 64 mg PO DAILY 05/17/18 Multivit-Min36/Iron/Folic Acid 1 each PO DAILY 05/17/18 [Geritol Complete Tablet] Aspirin [ASA -] 81 mg PO DAILY tab.chew 06/01/18 Cholecalciferol (Vitamin D3) 1,000 units PO DAILY 09/17/18 [Vitamin D3 -] REVIEW OF SYSTEMS CONSTITUTIONAL: Absent: fever, chills, diaphoresis, generalized weakness, malaise, loss of appetite, weight change HEENT: Absent: rhinorrhea, nasal congestion, throat pain, throat swelling, difficulty swallowing, mouth swelling, ear pain, eye pain, visual changes CARDIOVASCULAR: Absent: chest pain, syncope, palpitations, irregular heart rate, lightheadedness , peripheral edema RESPIRATORY: Absent: cough, shortness of breath, dyspnea with exertion, orthopnea, wheezing, stridor, hemoptysis GASTROINTESTINAL: Absent: abdominal pain, abdominal distension, nausea, vomiting, diarrhea, constipation, melena, hematochezia GENITOURINARY: Absent: dysuria, frequency, urgency, hesitancy, hematuria, flank pain, genital pain MUSCULOSKELETAL: Absent: myalgia, arthralgia, joint swelling, back pain, neck pain SKIN: Absent: rash, itching, pallor HEMATOLOGIC/IMMUNOLOGIC: Absent: easy bleeding, easy bruising, lymphadenopathy, frequent infections ENDOCRINE: Absent: unexplained weight gain, unexplained weight loss, heat intolerance, cold intolerance NEUROLOGIC: Absent: headache, focal weakness or paresthesias, dizziness, unsteady gait, seizure, mental status changes, bladder or bowel incontinence PSYCHIATRIC: Absent: anxiety, depression, suicidal or homicidal ideation, hallucinations. PHYSICAL EXAMINATION Vital Signs - 24 hr 12/30/18 11:04 Temperature 98.0 F Pulse Rate 75 Respiratory 16 Rate Blood Pressure 144/53 L O2 Sat by Pulse 96 Oximetry (%) Gen: NAD, AAOx3 HEENT: NCAT, EOMI Neck: supple, no jvd Cardio: rrr, normal s1s2, no mrg Pulm: cta b/l Abd: soft, nontender, nondistended, normal bs Ext: R BKA, no edema, 2+ L PD pulse, left plantar ulcer, stage 2, surrounding erythema, non-oozing Laboratory Results - last 24 hr 12/30/18 12/30/18 12/30/18 13:57 13:57 13:57 WBC 12.3 H RBC 4.07 Hgb 10.1 L Hct 31.5 L D MCV 77.3 L MCH 24.7 L MCHC 32.0 RDW 18.1 H Plt Count 406 MPV 8.1 Absolute Neuts (auto) 10.6 H Neutrophils % 86.2 H D Lymphocytes % 8.4 D Monocytes % 3.6 L Eosinophils % 0.9 Basophils % 0.9 Nucleated RBC % 0 ESR PT with INR 11.90 INR 1.01 PTT (Actin FS) 28.8 Sodium 145 Potassium 4.4 Chloride 107 Carbon Dioxide 25 Anion Gap 13 BUN 21.8 H Creatinine 1.1 Est GFR (CKD-EPI)AfAm 58.09 Est GFR (CKD-EPI)NonAf 50.12 Random Glucose 116 H Calcium 9.3 Magnesium Total Bilirubin 0.2 AST 16 ALT 17 Alkaline Phosphatase 71 C-Reactive Protein 5.9 H Total Protein 7.4 Albumin 3.1 L 12/30/18 12/30/18 13:57 13:57 WBC RBC Hgb Hct MCV MCH MCHC RDW Plt Count MPV Absolute Neuts (auto) Neutrophils % Lymphocytes % Monocytes % Eosinophils % Basophils % Nucleated RBC % ESR 72 H PT with INR INR PTT (Actin FS) Sodium Potassium Chloride Carbon Dioxide Anion Gap BUN Creatinine Est GFR (CKD-EPI)AfAm Est GFR (CKD-EPI)NonAf Random Glucose Calcium Magnesium 2.4 Total Bilirubin AST ALT Alkaline Phosphatase C-Reactive Protein Total Protein Albumin ASSESSMENT/PLAN: Pt is a 73 y/o F with PMH Lupus, lupus nephritis, 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 #Cellulitis -Aztreonam, Vanc in ED -ID, Bobde -Podiatry, Stepanian -c/w IV ABx, pending recs from ID -wound care per podiatry #Lupus w/ vasculitis, nephritis, neuropathy -prednisone -hydroxychloroquine -gabapentin #PAD -s/p stenting -stable -ASA #HTN -labetalol -nifedipine #HLD -stable #Fe defic -Feosol Visit type - Emergency Visit Emergency Visit: Yes ED Registration Date: 12/30/18 Care time: The patient presented to the Emergency Department on the above date and was hospitalized for further evaluation of their emergent condition. - New Patient This patient is new to me today: Yes Date on this admission: 12/30/18 - Critical Care Critical Care patient: No ATTENDING PHYSICIAN STATEMENT I saw and evaluated the patient. I reviewed the resident's note and discussed the case with the resident. I agree with the resident's findings and plan as documented. SUBJECTIVE: OBJECTIVE: ASSESSMENT AND PLAN:
--- NOTE | 2018-12-30 19:47 | PN ---
Teaching Attending Note Name of Resident: Esteban Jha ATTENDING PHYSICIAN STATEMENT I saw and evaluated the patient. I reviewed the resident's note and discussed the case with the resident. I agree with the resident's findings and plan as documented. Seen and examined; please see resident note for further historical information. Briefly, this is a 73 y/o female presenting to the ER with a DM foot wound. She follows with podiatry. She will ana IV abx, ID assessment, and inpatient monitoring. Not septic. Further history per resident note. Of ote is that she denies any current symptoms of lupus flare. Is at risk for worsening infection given immunosuppression. PMH, PSH, FH, SH reviewed and per resident note Medication list reviewed; confirming and will reconcile Home Medications Medication Instructions Recorded Hydroxychloroquine Sulfate 200 mg PO DAILY 10/20/15 [Plaquenil] Nifedipine [Procardia Xl] 60 mg PO BID 10/20/15 predniSONE [Deltasone -] 7 mg PO DAILY 10/20/15 Iron,Carbonyl [Feosol] 65 mg PO DAILY 11/20/15 Vitamin B Complex [B Complex # 1] 1 each PO DAILY 11/20/15 Labetalol HCl 200 mg PO TID 07/22/17 Calcium Carbonate [Calcium] 1,000 mg PO DAILY 05/17/18 Famotidine [Pepcid] 20 mg PO DAILY 05/17/18 Gabapentin [Neurontin -] 600 mg PO TID 05/17/18 Magnesium Chloride [Slow-Mag -] 64 mg PO DAILY 05/17/18 Multivit-Min36/Iron/Folic Acid 1 each PO DAILY 05/17/18 [Geritol Complete Tablet] Aspirin [ASA -] 81 mg PO DAILY tab.chew 06/01/18 Cholecalciferol (Vitamin D3) 1,000 units PO DAILY 09/17/18 [Vitamin D3 -] ASSESSMENT AND PLAN: Patient presents to the ER with foot wound; IV abx being given with ID and podiatry consult. No lupus flare suspected but will monitor. Continuing the patient's home medications and placing them on IV vancomycin and zosyn. Checking ESR/CRP and deferring further imaging to podiatry. Foot wound Hx Lupus Hx HTN, controlled Chronic pain with neuropathic componetn Chronic Anemia Full Code
--- NOTE | 2018-12-30 21:20 | EKG ---
Test Reason : Blood Pressure : / mmHG Vent. Rate : 072 BPM Atrial Rate : 072 BPM P-R Int : 136 ms QRS Dur : 084 ms QT Int : 394 ms P-R-T Axes : 046 043 053 degrees QTc Int : 431 ms NORMAL SINUS RHYTHM NORMAL ECG WHEN COMPARED WITH ECG OF 24-JUL-2018 18:39, NO SIGNIFICANT CHANGE WAS FOUND Confirmed by KEVIN BLACK MD ([id number]) on 12/30/2018 9:19:32 PM Referred By: Confirmed By:KEVIN BLACK MD
[2018-12-30] MEDS: GABAPENTIN 300 MG CAPSULE (FP) PO SCH (21:26)
[2018-12-30] MEDS: LABETALOL HCL 100 MG TABLET (FP) PO SCH (21:26)
[2018-12-30] MEDS: NIFEdipine E.R 60 MG TABLET (UD) PO SCH (21:26)
[2018-12-30] MEDS: HEPARIN NA (PORCINE) 5,000 UNITS/ML 1ML VIAL SQ SCH (21:26)
[2018-12-30] MEDS ORDERED: PATIENT'S OWN MEDICATION (NON-FORMULARY) (Nifedipine [Procardia Xl] 60 MG) PO SCH (22:00)
[2018-12-31] MEDS: HEPARIN NA (PORCINE) 5,000 UNITS/ML 1ML VIAL SQ SCH ×3 (05:45→21:56)
[2018-12-31] MEDS: LABETALOL HCL 100 MG TABLET (FP) PO SCH ×3 (05:45→21:56)
[2018-12-31] MEDS: GABAPENTIN 300 MG CAPSULE (FP) PO SCH ×3 (05:46→21:55)
[2018-12-31 07:14] LABS: EOS % 3.7 % (0-4.5); HEMATOCRIT 30.7 % (32.4-45.2); HEMOGLOBIN 9.7 GM/dL (10.7-15.3); MCH 24.8 pg (25.7-33.7); MCHC 31.6 g/dl (32.0-36.0); MEAN CELL VOLUME 78.4 fl (80-96); MEAN PLT VOLUME 8.2 fl (7.5-11.1); MONO % 9.3 % (3.8-10.2); PLATELET COUNT 385 K/MM3 (134-434); RBC 3.91 M/mm3 (3.60-5.2); RDW 18.4 % (11.6-15.6)
--- NOTE | 2018-12-31 07:26 | PN ---
Teaching Attending Note Name of Resident: Esteban Jha ATTENDING PHYSICIAN STATEMENT I saw and evaluated the patient. I reviewed the resident's note and discussed the case with the resident. I agree with the resident's findings and plan as documented. SUBJECTIVE: Seen and examined; no new complaints. ID and podiatry following. See resident note for further historical information. 10 sys ROS done and negative aside from HPI OBJECTIVE: VS, labs, imaging reviewed NAD, AAO, resting in bed Wound demarcated; no extention or retreat. +1 DP/PT NC AT EOMI PERRLA RRR s1/2 Lungs CTAB NT ND +BS CN2-12 wnl, no fnd MRI pending; ordered 12/[address] Jha Arterial studies noted; LLE extensive disease. Pend vasc. sgy consult but + pulses, no 5p's ASSESSMENT AND PLAN: Patient with complex PMH presents with foot wound; history of prior BKA. Podiatry, vascular, ID following. Risks include prior BKA, prednisone use 2/2 lupus. Continue abx, immunosuppressants. Followup with surgical and specialty services; appreciate expert input in management of this patient. #Cellulitis, r/o osteomyelitis given chronicity of wound #Lupus with vasculitis, nephritis, neuropathy (on prednisone, plaquenil; continue. No complaints of flare. Continue gabapentin for neuropathy. Monitor renal function closely for ULICES given prior nephropahty) #PAD (S/P stenting; vascular eval pending. +pulses; extensive vascular disease LLE on arterial doppler) #HTN (Continue home labetalol, nifedipine) #HLD (FU OP FLP) #Fe defic (Continue home iron) Full Code Dispo: Pending MRI; need to see if bone involvement to determine if needs surgical debridement, longwall shearer operator abx, etc.
[2018-12-31 07:58] LABS: ALBUMIN 2.7 g/dl (3.4-5.0); BILIRUBIN,TOTAL 0.2 mg/dL (0.2-1); CALCIUM 8.9 mg/dL (8.5-10.1); PHOSPHOROUS 3.9 mg/dL (2.5-4.9); POTASSIUM 3.9 mmol/L (3.5-5.1); TOT PROT 6.6 g/dl (6.4-8.2)
[2018-12-31] MEDS ORDERED: ACETAMINOPHEN 650 MG/20.3 ML ORAL SOLUTION (CUPS) PO PRN (08:20)
[2018-12-31] MEDS ORDERED: KETOROLAC TROMETHAMINE 15 MG/ML VIAL IVPUSH PRN (08:20)
--- NOTE | 2018-12-31 08:47 | CON.ID ---
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 Pt states she was recently at [facility] for similar. She had an MRI there, which did not show OM. She has had several treatments of ABx for similar problem recently and has been seen inpt and outpt by podiatry. As an outpt, she was given an orthopedic shoe, which she states was rubbing on her foot and caused the ulcer. She has seen the stevedoring supervisor, tried foot baths, creams, ointments, and po antibiotics, all of which have not resolved the issue. Denies fever, chills, n/v/d, sob, cp. the above was her history since she was discharged from the hospital currently the patients leg is quite tender and red with ulceration in the middle - History Source History Provided By: Patient Limitations to Obtaining History: No Limitations - Past Medical History Cardio/Vascular: Yes: CAD Gastrointestinal: Yes: GERD Renal/: Yes: Renal Failure, Other (renal obstruction s/p stents) ...LMP: 12/31/18 Rheumatology: Yes: Lupus, Vasculitis (chronic), Other (Bachets disease) Endocrine: Yes: Diabetes Mellitus - Past Surgical History Past Surgical History: Yes: Amputation (R AKA) - Alcohol/Substance Use Hx Alcohol Use: No - Smoking History Smoking history: Never smoked Have you smoked in the past 12 months: No Aproximately how many cigarettes per day: 0 If you are a former smoker, when did you quit?: 1979 - Social History Usual Living Arrangement: Other (her son and her grown grandson live with her) ADL: Independent History of Recent Travel: No Home Medications - Allergies Allergies/Adverse Reactions: Allergies Allergy/AdvReac Type Severity Reaction Status Date / Time Sulfa (Sulfonamide Allergy Severe RASH,VOMITI Verified 12/30/18 11:06 Antibiotics) NG,DIZZINES S codeine [Codeine] Allergy Hives Verified 12/30/18 11:06 Penicillins Allergy Hives Verified 12/30/18 11:06 lactose AdvReac Verified 12/30/18 11:06 ranitidine [From Zantac] AdvReac headache Verified 12/30/18 11:06 - Home Medications Home Medications: Ambulatory Orders Hydroxychloroquine Sulfate [Plaquenil] 200 mg PO DAILY 10/20/15 Nifedipine [Procardia Xl] 60 mg PO BID 10/20/15 predniSONE [Deltasone -] 7 mg PO DAILY 10/20/15 Iron,Carbonyl [Feosol] 65 mg PO DAILY 11/20/15 Vitamin B Complex [B Complex # 1] 1 each PO DAILY 11/20/15 Labetalol HCl 200 mg PO TID 07/22/17 Calcium Carbonate [Calcium] 1,000 mg PO DAILY 05/17/18 Famotidine [Pepcid] 20 mg PO DAILY 05/17/18 Gabapentin [Neurontin -] 600 mg PO TID 05/17/18 Magnesium Chloride [Slow-Mag -] 64 mg PO DAILY 05/17/18 Multivit-Min36/Iron/Folic Acid [Geritol Complete Tablet] 1 each PO DAILY Aspirin [ASA -] 81 mg PO DAILY tab.chew 06/01/18 Cholecalciferol (Vitamin D3) [Vitamin D3 -] 1,000 units PO DAILY 09/17/18 Family Disease History - Family Disease History Family Disease History: Other: Brother (dementia) Review of Systems - Review of Systems Constitutional: reports: No Symptoms Eyes: reports: No Symptoms HENT: reports: No Symptoms Neck: reports: No Symptoms Cardiovascular: reports: No Symptoms Respiratory: reports: No Symptoms Gastrointestinal: reports: No Symptoms Genitourinary: reports: No Symptoms Musculoskeletal: reports: No Symptoms Integumentary: reports: Erythema, Wound, Other (pain of the left foot) Neurological: reports: No Symptoms Endocrine: reports: No Symptoms Hematology/Lymphatic: reports: No Symptoms Psychiatric: reports: No Symptoms Physical Exam Vital Signs: Vital Signs Temperature 98 F 12/31/18 06:00 Pulse Rate 67 12/31/18 06:00 Respiratory Rate 16 12/31/18 06:00 Blood Pressure 143/56 L 12/31/18 06:00 O2 Sat by Pulse Oximetry (%) 100 12/30/18 18:47 Constitutional: Yes: Well Nourished, Calm, Mild Distress Eyes: Yes: Conjunctiva Clear Neck: Yes: Supple, Trachea Midline Cardiovascular: Yes: Regular Rate and Rhythm Respiratory: Yes: Regular, CTA Bilaterally Gastrointestinal: Yes: Normal Bowel Sounds, Soft Musculoskeletal: Yes: WNL Extremities: Yes: Erythema (of the foot), Other (central ulceration) Neurological: Yes: Alert, Oriented Psychiatric: Yes: Alert, Oriented Labs: CBC, BMP 12/31/18 05:50 12/31/18 05:50 Imaging - Results Chest X-ray: Report Reviewed, Image Reviewed X-ray: Report Reviewed, Image Reviewed Assessment/Plan 73 y/o F with PMH Lupus, lupus nephritis, 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 cellulitis Lupus PAD HTN HLD plan we will continue aztreonam elevation of the leg monitor rest as per the team seems recent imaging were negative for osteo
[2018-12-31] MEDS ORDERED: DEXTROSE 5%-WATER - 50 ML IVPB ONE ×2 (09:11→17:05)
[2018-12-31] MEDS ORDERED: AZTREONAM 1 GM VIAL (RESTRICTED TO ID) ONE ×2 (09:11→17:05)
[2018-12-31] MEDS ORDERED: RANITIDINE HCL 150 MG TABLET (FP) PO SCH (10:00)
[2018-12-31] MEDS ORDERED: predniSONE 10 MG TABLET (UD) PO SCH (10:00)
[2018-12-31] MEDS ORDERED: PATIENT'S OWN MEDICATION (NON-FORMULARY) (Famotidine [Pepcid] 20 MG) PO SCH (10:00)
[2018-12-31] MEDS: CHOLECALCIFEROL (VIT D3) 1,000 UNIT (25 MCG) TABLET PO SCH (10:06)
[2018-12-31] MEDS: NIFEdipine E.R 60 MG TABLET (UD) PO SCH ×2 (10:06→21:56)
[2018-12-31] MEDS: AZTREONAM 1 GM in DEXTROSE 5%-WATER - 50 ML IVPB SCH ×2 (10:06→17:43)
[2018-12-31] MEDS: FERROUS SO4 325 MG TABLET (FP) PO SCH (10:07)
[2018-12-31] MEDS: MULTIVITAMINS (DAILY MVI) TABLET (FP) PO SCH (10:07)
[2018-12-31] MEDS: HYDROXYCHLOROQUINE SO4 200 MG TABLET (FP) PO SCH (10:07)
[2018-12-31] MEDS: ASPIRIN 81 MG CHEWABLE TABLETS PO SCH (10:07)
[2018-12-31] MEDS: VITAMIN B COMP W-C 1 EA TABLET PO SCH (10:07)
--- NOTE | 2018-12-31 11:29 | CONSULT ---
Consult Consult Specialty:: Podiatry Reason for Consultation:: wound left foot - History of Present Illness Chief Complaint: wound/cellulitis left foot since october. History of Present Illness: Patient states wound caused by new shoe. Tx by Dr. Rodriguez with a topical and oral abx since then.. MRI [facility] negative in October. - History Source History Provided By: Patient - Past Medical History Cardio/Vascular: Yes: CAD Gastrointestinal: Yes: GERD Renal/: Yes: Renal Failure, Other (renal obstruction s/p stents) ...LMP: 12/31/18 Rheumatology: Yes: Lupus, Vasculitis (chronic), Other (Bachets disease) Endocrine: Yes: Diabetes Mellitus - Past Surgical History Past Surgical History: Yes: Amputation (R AKA) - Alcohol/Substance Use Hx Alcohol Use: No - Smoking History Smoking history: Never smoked Have you smoked in the past 12 months: No Aproximately how many cigarettes per day: 0 If you are a former smoker, when did you quit?: 1979 - Social History Usual Living Arrangement: Other (her son and her grown grandson live with her) ADL: Independent History of Recent Travel: No Home Medications - Allergies Allergies/Adverse Reactions: Allergies Allergy/AdvReac Type Severity Reaction Status Date / Time Sulfa (Sulfonamide Allergy Severe RASH,VOMITI Verified 12/30/18 11:06 Antibiotics) NG,DIZZINES S codeine [Codeine] Allergy Hives Verified 12/30/18 11:06 Penicillins Allergy Hives Verified 12/30/18 11:06 lactose AdvReac Verified 12/30/18 11:06 ranitidine [From Zantac] AdvReac headache Verified 12/30/18 11:06 - Home Medications Home Medications: Ambulatory Orders Hydroxychloroquine Sulfate [Plaquenil] 200 mg PO DAILY 10/20/15 Nifedipine [Procardia Xl] 60 mg PO BID 10/20/15 predniSONE [Deltasone -] 7 mg PO DAILY 10/20/15 Iron,Carbonyl [Feosol] 65 mg PO DAILY 11/20/15 Vitamin B Complex [B Complex # 1] 1 each PO DAILY 11/20/15 Labetalol HCl 200 mg PO TID 07/22/17 Calcium Carbonate [Calcium] 1,000 mg PO DAILY 05/17/18 Famotidine [Pepcid] 20 mg PO DAILY 05/17/18 Gabapentin [Neurontin -] 600 mg PO TID 05/17/18 Magnesium Chloride [Slow-Mag -] 64 mg PO DAILY 05/17/18 Multivit-Min36/Iron/Folic Acid [Geritol Complete Tablet] 1 each PO DAILY Aspirin [ASA -] 81 mg PO DAILY tab.chew 06/01/18 Cholecalciferol (Vitamin D3) [Vitamin D3 -] 1,000 units PO DAILY 09/17/18 Family Disease History - Family Disease History Family Disease History: Other: Brother (dementia) Physical Exam Vital Signs: Vital Signs Temperature 98 F 12/31/18 06:00 Pulse Rate 67 12/31/18 06:00 Respiratory Rate 16 12/31/18 06:00 Blood Pressure 143/56 L 12/31/18 06:00 O2 Sat by Pulse Oximetry (%) 100 12/30/18 18:47 Extremities: Yes: Other (grade 2-3 wound left foot, +cellulitis, +drainage) Labs: CBC, BMP 12/31/18 05:50 12/31/18 05:50 Assessment/Plan pvd grade 2-3 wound r/o om lupus cellulitis Vascular eval. MRI. ivabx as per id. Deleon to wound left foot. will follow.
[2018-12-31] MEDS ORDERED: PT OWN MED DRAWER 7, Y5N ONE ×2 (11:41→14:43)
--- NOTE | 2018-12-31 12:02 | PN ---
Teaching Attending Note ATTENDING PHYSICIAN STATEMENT I saw and evaluated the patient. I reviewed the resident's note and discussed the case with the resident. I agree with the resident's findings and plan as documented. SUBJECTIVE: OBJECTIVE: ASSESSMENT AND PLAN:
--- NOTE | 2018-12-31 13:16 | CONSULT ---
<Abdirahman Bedolla - Last Filed: 12/31/18 13:38> - Consultation REQUESTING PROVIDER: CONSULT REQUEST: We have been asked to surgically evaluate this patient for Left foot wound. 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 Pt reports she had a new custom fitted shoe created in mid October by her prosthesis company ([employer]). Reports wearing the shoe for a few hours each day in an attempt to "stretch it out". Pt reports pain and discomfort a few days later and noted redness and a wound on her mid foot. returned to [facility] for new measurements/shoes. Pt also went to see her DPM who prescribed Levaquin 500mg bid x 10 days as well as daily water/vinegar soaks. Pt reports she returned to see her DPM on Dec 27 and was told to come to the ED immediately as foot appeared worse. Reports some "bloody drainage" from her foot which stopped yesterday. Denies cp/sob, n/v/d, chills/fever. Per pt, she was seen at [facility] in October and had a MRI of her foot which showed no Osteomyelitis. Denies tobacco use. At baseline pt ambulates with her prosthetic device without issue. PMHx: as above PSHx: as above, also Right retroperitoneal lymph node dissection. Right ureterolysis. (Dr Gomez, 11/22/15), Revascularization left tibial artery with atherectomy and angioplasty x 2. Incision left foot wound (Dr Gomez, 05/19/18) Home Medications Medication Instructions Recorded Hydroxychloroquine Sulfate 200 mg PO DAILY 10/20/15 [Plaquenil] Nifedipine [Procardia Xl] 60 mg PO BID 10/20/15 predniSONE [Deltasone -] 7 mg PO DAILY 10/20/15 Iron,Carbonyl [Feosol] 65 mg PO DAILY 11/20/15 Vitamin B Complex [B Complex # 1] 1 each PO DAILY 11/20/15 Labetalol HCl 200 mg PO TID 07/22/17 Calcium Carbonate [Calcium] 1,000 mg PO DAILY 05/17/18 Famotidine [Pepcid] 20 mg PO DAILY 05/17/18 Gabapentin [Neurontin -] 600 mg PO TID 05/17/18 Magnesium Chloride [Slow-Mag -] 64 mg PO DAILY 05/17/18 Multivit-Min36/Iron/Folic Acid 1 each PO DAILY 05/17/18 [Geritol Complete Tablet] Aspirin [ASA -] 81 mg PO DAILY tab.chew 06/01/18 Cholecalciferol (Vitamin D3) 1,000 units PO DAILY 09/17/18 [Vitamin D3 -] Allergies Allergy/AdvReac Type Severity Reaction Status Date / Time Sulfa (Sulfonamide Allergy Severe RASH,VOMITI Verified 12/30/18 11:06 Antibiotics) NG,DIZZINES S codeine [Codeine] Allergy Hives Verified 12/30/18 11:06 Penicillins Allergy Hives Verified 12/30/18 11:06 lactose AdvReac Verified 12/30/18 11:06 ranitidine [From Zantac] AdvReac headache Verified 12/30/18 11:06 REVIEW OF SYSTEMS: CONSTITUTIONAL: Absent: fever, chills CARDIOVASCULAR: Absent: chest pain RESPIRATORY: Absent: cough, shortness of breath GASTROINTESTINAL: Absent: abdominal pain, abdominal distension PHYSICAL EXAM: GENERAL: Awake, alert, and fully oriented, in no acute distress. HEAD: Normal with no signs of trauma. LOWER EXTREMITIES: R foot bka well healed with no ulcers. L foot with Charcot deformity. Approx 1x1.5cm ulcer at mid foot over plantar surface with thin eschar overlying, no drainage, + erythema extending from just proximal to malleolous to 1st met head (marked), ++TTP. Vasc: Palpable femorals L>>R, pops not appreciated, L dp monophasic signal with doppler, PT biphasic with doppler. Vital Signs Temperature 98 F 12/31/18 06:00 Pulse Rate 67 12/31/18 06:00 Respiratory Rate 16 12/31/18 06:00 Blood Pressure 143/56 L 12/31/18 06:00 O2 Sat by Pulse Oximetry (%) 100 12/30/18 18:47 Lab Results WBC 10.0 K/mm3 (4.0-10.0) 12/31/18 05:50 RBC 3.91 M/mm3 (3.60-5.2) 12/31/18 05:50 Hgb 9.7 GM/dL (10.7-15.3) L 12/31/18 05:50 Hct 30.7 % (32.4-45.2) L 12/31/18 05:50 MCV 78.4 fl (80-96) L 12/31/18 05:50 MCHC 31.6 g/dl (32.0-36.0) L 12/31/18 05:50 RDW 18.4 % (11.6-15.6) H 12/31/18 05:50 Plt Count 385 K/MM3 (134-434) 12/31/18 05:50 Sodium 145 mmol/L (136-145) 12/31/18 05:50 Potassium 3.9 mmol/L (3.5-5.1) 12/31/18 05:50 Chloride 108 mmol/L (98-107) H 12/31/18 05:50 Carbon Dioxide 25 mmol/L (21-32) 12/31/18 05:50 Anion Gap 12 MMOL/L (8-16) 12/31/18 05:50 BUN 21.0 mg/dL (7-18) H 12/31/18 05:50 Creatinine 1.0 mg/dL (0.55-1.3) 12/31/18 05:50 Random Glucose 79 mg/dL (74-106) 12/31/18 05:50 Calcium 8.9 mg/dL (8.5-10.1) 12/31/18 05:50 INR 1.01 (0.83-1.09) 12/30/18 13:57 A/P: 73 y/o F w/ PMHx Lupus since 1978 on Prednisone/plaquenil, PAD s/p right AKA 1996/s/p iliac stents (last in 2010), lupus nephritis, CKD, Anemia, lymphadenopathy, HTN, HLD now admitted after failed outpt trtmt for new L foot wound. L foot with ulcer, + cellulitis. Pt had angiogram with Dr Gomez in May which she reports was wnl, all stents open Takes ASA 81mg qd -Abx per ID -Imaging per Podiatry -Awaiting further plan per attending <Angel Gomez - Last Filed: 01/01/19 08:26> - Consultation REQUESTING PROVIDER: CONSULT REQUEST: We have been asked to surgically evaluate this patient for ( specify). PCP:Rafita Gibbons MD HISTORY OF PRESENT ILLNESS: PMHx: PSHx: Home Medications Medication Instructions Recorded Hydroxychloroquine Sulfate 200 mg PO DAILY 10/20/15 [Plaquenil] Nifedipine [Procardia Xl] 60 mg PO BID 10/20/15 predniSONE [Deltasone -] 7 mg PO DAILY 10/20/15 Iron,Carbonyl [Feosol] 65 mg PO DAILY 11/20/15 Vitamin B Complex [B Complex # 1] 1 each PO DAILY 11/20/15 Labetalol HCl 200 mg PO TID 07/22/17 Calcium Carbonate [Calcium] 1,000 mg PO DAILY 05/17/18 Famotidine [Pepcid] 20 mg PO DAILY 05/17/18 Gabapentin [Neurontin -] 600 mg PO TID 05/17/18 Magnesium Chloride [Slow-Mag -] 64 mg PO DAILY 05/17/18 Multivit-Min36/Iron/Folic Acid 1 each PO DAILY 05/17/18 [Geritol Complete Tablet] Aspirin [ASA -] 81 mg PO DAILY tab.chew 06/01/18 Cholecalciferol (Vitamin D3) 1,000 units PO DAILY 09/17/18 [Vitamin D3 -] Allergies Allergy/AdvReac Type Severity Reaction Status Date / Time Sulfa (Sulfonamide Allergy Severe RASH,VOMITI Verified 12/30/18 11:06 Antibiotics) NG,DIZZINES S codeine [Codeine] Allergy Hives Verified 12/30/18 11:06 Penicillins Allergy Hives Verified 12/30/18 11:06 lactose AdvReac Verified 12/30/18 11:06 ranitidine [From Zantac] AdvReac headache Verified 12/30/18 11:06 REVIEW OF SYSTEMS: CONSTITUTIONAL: Absent: fever, chills, diaphoresis, generalized weakness, malaise, loss of appetite, weight change CARDIOVASCULAR: Absent: chest pain, syncope, palpitations, irregular heart rate, lightheadedness , peripheral edema RESPIRATORY: Absent: cough, shortness of breath, dyspnea with exertion, wheezing, stridor, hemoptysis GASTROINTESTINAL: Absent: abdominal pain, abdominal distension, nausea, vomiting, diarrhea, constipation, melena, hematochezia GENITOURINARY: Absent: dysuria, frequency, urgency, hesitancy, hematuria, flank pain, genital pain MUSCULOSKELETAL: Absent: myalgia, arthralgia, joint swelling, back pain, neck pain SKIN: Absent: rash, itching, pallor HEMATOLOGIC/IMMUNOLOGIC: Absent: easy bleeding, easy bruising, lymphadenopathy NEUROLOGIC: Absent: headache, focal weakness, paresthesias, dizziness, unsteady gait, seizure, mental status changes, bladder or bowel incontinence PSYCHIATRIC: Absent: anxiety, depression, suicidal or homicidal ideation, hallucinations. PHYSICAL EXAM: GENERAL: Awake, alert, and fully oriented, in no acute distress. HEAD: Normal with no signs of trauma. EYES: PERRL, sclera anicteric, conjunctiva clear. NECK: Normal ROM, supple without lymphadenopathy, JVD, or masses. LUNGS: Clear to auscultation bilat anteriorly. No wheezes, and no crackles. No accessory muscle use. HEART: Regular rate and rhythm. No murmurs ABDOMEN: Soft, nontender, not distended, normoactive bowel sounds, no guarding, no rebound, no masses. No organomegaly. MUSCULOSKELETAL: Normal ROM at all joints. No bony deformities or tenderness. No CVA tenderness. UPPER EXTREMITIES: 2+ pulses, warm, well-perfused. No cyanosis. Cap refill <2 seconds. No peripheral edema. LOWER EXTREMITIES: 2+ pulses, warm, well-perfused. No calf tenderness. No peripheral edema. NEUROLOGICAL: Normal speech, gait not observed. PSYCH: Cooperative. Good eye contact. Appropriate mood and affect. SKIN: Warm, dry, normal turgor, no rashes or lesions noted. Vital Signs Temperature 101.4 F H 01/01/19 06:57 Pulse Rate 92 H 01/01/19 06:57 Respiratory Rate 20 01/01/19 06:57 Blood Pressure 163/72 01/01/19 06:57 O2 Sat by Pulse Oximetry (%) 100 12/30/18 18:47 Lab Results WBC 16.0 K/mm3 (4.0-10.0) H 01/01/19 05:56 RBC 4.01 M/mm3 (3.60-5.2) 01/01/19 05:56 Hgb 10.0 GM/dL (10.7-15.3) L 01/01/19 05:56 Hct 31.6 % (32.4-45.2) L 01/01/19 05:56 MCV 78.7 fl (80-96) L 01/01/19 05:56 MCHC 31.6 g/dl (32.0-36.0) L 01/01/19 05:56 RDW 18.3 % (11.6-15.6) H 01/01/19 05:56 Plt Count 400 K/MM3 (134-434) 01/01/19 05:56 Sodium 143 mmol/L (136-145) 01/01/19 05:56 Potassium 4.0 mmol/L (3.5-5.1) 01/01/19 05:56 Chloride 105 mmol/L (98-107) 01/01/19 05:56 Carbon Dioxide 26 mmol/L (21-32) 01/01/19 05:56 Anion Gap 12 MMOL/L (8-16) 01/01/19 05:56 BUN 21.4 mg/dL (7-18) H 01/01/19 05:56 Creatinine 1.1 mg/dL (0.55-1.3) 01/01/19 05:56 Random Glucose 105 mg/dL (74-106) 01/01/19 05:56 Calcium 9.7 mg/dL (8.5-10.1) 01/01/19 05:56 INR 1.01 (0.83-1.09) 12/30/18 13:57 History reviewed and patient examined. Left plantar ulcer with erythema and drainage. Last treated for similar problem in the spring. Tibial angioplasty performed at that time. Patient states MRI in [facility] last month was negative for osteomyelitis. Her left PT pulse is easily palpable. Duplex shows multiphasic flow in left leg to [employer]ARMACOVIGILANCE [employer]IST. Imp: Adequate arterial flow to left foot, local ulcer and infection. Agree with IV antibiotic and evaluation for debridement by podiatry. No vascular intervention needed at this time.
[2018-12-31] MEDS: CALCIUM (OYSTER SHELL) 500 MG TABLET (FP) PO SCH (15:51)
[2018-12-31] MEDS: MAGNESIUM CL 64 MG TABLET.SA PO SCH (15:53)
--- NOTE | 2018-12-31 21:45 | PN ---
Physical Exam: SUBJECTIVE: Patient seen and examined at bedside. Pain at site of ulcer OBJECTIVE: Vital Signs Period Temp Pulse Resp BP Sys/Hidalgo Pulse Ox Last 24 Hr 98 F-98.2 F 67-82 16-20 124-150/56-81 Gen: NAD, AAOx3 HEENT: NCAT, EOMI Neck: supple, no jvd Cardio: rrr, normal s1s2, no mrg Pulm: cta b/l Abd: soft, nontender, nondistended, normal bs Ext: R BKA, no edema, 2+ L PD pulse, left plantar ulcer, stage 2, surrounding erythema, non-oozing. Improving Laboratory Results - last 24 hr 12/31/18 12/31/18 05:50 05:50 WBC 10.0 RBC 3.91 Hgb 9.7 L Hct 30.7 L MCV 78.4 L MCH 24.8 L MCHC 31.6 L RDW 18.4 H Plt Count 385 MPV 8.2 Absolute Neuts (auto) 6.0 Neutrophils % 60.0 D Lymphocytes % 26.0 D Monocytes % 9.3 D Eosinophils % 3.7 D Basophils % 1.0 Nucleated RBC % 0 Sodium 145 Potassium 3.9 Chloride 108 H Carbon Dioxide 25 Anion Gap 12 BUN 21.0 H Creatinine 1.0 Est GFR (CKD-EPI)AfAm 65.18 Est GFR (CKD-EPI)NonAf 56.24 Random Glucose 79 Calcium 8.9 Phosphorus 3.9 Total Bilirubin 0.2 AST 13 L ALT 15 Alkaline Phosphatase 62 Total Protein 6.6 Albumin 2.7 L Active Medications Generic Name Dose Route Start Last Admin Trade Name Rigo PRN Reason Stop Dose Admin Acetaminophen 650 mg 12/31/18 08:20 12/31/18 11:28 Tylenol Oral Solution - PO 650 mg Q6H PRN Administration PAIN Aspirin 81 mg 12/31/18 10:00 12/31/18 10:07 Asa - PO 81 mg DAILY CHALO Administration Calcium Carbonate 1,000 mg 12/31/18 10:00 12/31/18 15:51 Os-Ryan 500mg - PO 1,000 mg DAILY CHALO Administration Cholecalciferol 1,000 unit 12/31/18 10:00 12/31/18 10:06 Vitamin D3 - PO 1,000 unit DAILY CHALO Administration Ferrous Sulfate 325 mg 12/31/18 10:00 12/31/18 10:07 Feosol - PO 325 mg DAILY [facility]ALO Administration Gabapentin 600 mg 12/30/18 22:00 12/31/18 15:56 Neurontin - PO 600 mg TID CHALO Administration Heparin Sodium (Porcine) 5,000 unit 12/30/18 22:00 12/31/18 15:55 Heparin - SQ 5,000 unit TID CHALO Administration Hydroxychloroquine Sulfate 200 mg 12/31/18 10:00 12/31/18 10:07 Plaquenil - PO 200 mg DAILY [facility]O Administration Aztreonam 1 gm/ Dextrose 50 mls @ 100 mls/hr 12/31/18 10:00 12/31/18 17:43 IVPB 100 mls/hr Q8H-IV [facility]ALO Administration Protocol Ketorolac Tromethamine 15 mg 12/31/18 08:20 Toradol Injection - IVPUSH 01/05/19 08:19 Q6H PRN PAIN LEVEL 7 - 10 Labetalol HCl 200 mg 12/30/18 22:00 12/31/18 15:56 Normodyne - PO 200 mg TID CHALO Administration Magnesium Chloride 64 mg 12/31/18 10:00 12/31/18 15:53 Slow-Mag - PO 64 mg DAILY [facility] Administration Multivit/Ca Carb/B Cmplx/FA/Prenat 1 tablet 12/31/18 10:00 12/31/18 10:07 Nephro-Rebecca - PO 1 tablet DAILY [facility]O Administration Multivitamins/Minerals/Vitamin C 1 tab 12/31/18 10:00 12/31/18 10:07 Tab-A-Vit - PO 1 tab DAILY [facility]O Administration Nifedipine 60 mg 12/30/18 22:00 12/31/18 10:06 Procardia Xl - PO 60 mg BID [facility]ALO Administration Non-Formulary Medication 20 mg 12/31/18 10:00 Famotidine [Pepcid] PO DAILY [facility] Prednisone 5 mg/ Prednisone 2 7 mg 12/31/18 10:00 12/31/18 15:52 mg PO 7 mg DAILY [facility]O Administration ASSESSMENT/PLAN: Pt is a 73 y/o F with PMH Lupus, lupus nephritis, R BKA 2/2 gangrene, PAD s/p stenting, vasculitis, CAD, HTN, HLD who presented to ED sent by land law examiner for L foot ulcer unresponsive to PO Abx. #Cellulitis -Aztreonam, Vanc in ED -ID, Bobde -Podiatry, Stepanian -c/w IV ABx, ID -wound care per podiatry #Lupus w/ vasculitis, nephritis, neuropathy -prednisone -hydroxychloroquine -gabapentin #PAD -s/p stenting -stable -ASA #HTN -labetalol -nifedipine #HLD -stable #Fe defic -Feosol Visit type - Emergency Visit Emergency Visit: No - New Patient This patient is new to me today: No - Critical Care Critical Care patient: No ATTENDING PHYSICIAN STATEMENT I saw and evaluated the patient. I reviewed the resident's note and discussed the case with the resident. I agree with the resident's findings and plan as documented. SUBJECTIVE: OBJECTIVE: ASSESSMENT AND PLAN:
[2019-01-01] MEDS ORDERED: AZTREONAM 1 GM VIAL (RESTRICTED TO ID) ONE ×3 (01:07→17:02)
[2019-01-01] MEDS ORDERED: DEXTROSE 5%-WATER - 50 ML IVPB ONE ×3 (01:07→17:02)
[2019-01-01] MEDS: AZTREONAM 1 GM in DEXTROSE 5%-WATER - 50 ML IVPB SCH ×3 (01:29→17:05)
[2019-01-01] MEDS ORDERED: MAG HYDROX/AL HYDROX/SIMETH 30 ML UNIT-DOSE CUP PO ONE (03:17)
[2019-01-01] MEDS: HEPARIN NA (PORCINE) 5,000 UNITS/ML 1ML VIAL SQ SCH ×4 (05:31→21:45)
[2019-01-01] MEDS: GABAPENTIN 300 MG CAPSULE (FP) PO SCH ×3 (05:31→21:45)
[2019-01-01] MEDS: LABETALOL HCL 100 MG TABLET (FP) PO SCH ×3 (05:31→21:44)
[2019-01-01 07:05] LABS: HEMATOCRIT 31.6 % (32.4-45.2); MCH 24.9 pg (25.7-33.7); MCHC 31.6 g/dl (32.0-36.0); MEAN CELL VOLUME 78.7 fl (80-96); MEAN PLT VOLUME 8.5 fl (7.5-11.1); PLATELET COUNT 400 K/MM3 (134-434); RBC 4.01 M/mm3 (3.60-5.2); RDW 18.3 % (11.6-15.6)
[2019-01-01 07:26] LABS: BLOOD UREA NITROGEN 21.4 mg/dL (7-18); CALCIUM 9.7 mg/dL (8.5-10.1); CREATININE 1.1 mg/dL (0.55-1.3)
[2019-01-01] MEDS: ASPIRIN 81 MG CHEWABLE TABLETS PO SCH (09:34)
[2019-01-01] MEDS: HYDROXYCHLOROQUINE SO4 200 MG TABLET (FP) PO SCH (09:35)
[2019-01-01] MEDS: NIFEdipine E.R 60 MG TABLET (UD) PO SCH ×2 (09:35→21:45)
[2019-01-01] MEDS: CALCIUM (OYSTER SHELL) 500 MG TABLET (FP) PO SCH (09:35)
[2019-01-01] MEDS: CHOLECALCIFEROL (VIT D3) 1,000 UNIT (25 MCG) TABLET PO SCH (09:35)
[2019-01-01] MEDS: VITAMIN B COMP W-C 1 EA TABLET PO SCH (09:35)
[2019-01-01] MEDS: MULTIVITAMINS (DAILY MVI) TABLET (FP) PO SCH (09:35)
[2019-01-01] MEDS: FERROUS SO4 325 MG TABLET (FP) PO SCH (09:35)
[2019-01-01] MEDS: MAGNESIUM CL 64 MG TABLET.SA PO SCH (09:36)
--- NOTE | 2019-01-01 10:54 | PN ---
Progress Note, Physician History of Present Illness: patient stable spiked a fever last night swelling has decreased foot still red - Current Medication List Current Medications: Active Medications Acetaminophen (Tylenol Oral Solution -) 650 mg PO Q6H PRN PRN Reason: PAIN Last Admin: 12/31/18 11:28 Dose: 650 mg Aspirin (Asa -) 81 mg PO DAILY [facility] Last Admin: 01/01/19 09:34 Dose: 81 mg Calcium Carbonate (Os-Ryan 500mg -) 1,000 mg PO DAILY [facility] Last Admin: 01/01/19 09:35 Dose: 1,000 mg Cholecalciferol (Vitamin D3 -) 1,000 unit PO DAILY [facility] Last Admin: 01/01/19 09:35 Dose: 1,000 unit Ferrous Sulfate (Feosol -) 325 mg PO DAILY [facility] Last Admin: 01/01/19 09:35 Dose: 325 mg Gabapentin (Neurontin -) 600 mg PO TID [facility] Last Admin: 01/01/19 05:31 Dose: 600 mg Heparin Sodium (Porcine) (Heparin -) 5,000 unit SQ TID [facility] Last Admin: 01/01/19 05:31 Dose: 5,000 unit Hydroxychloroquine Sulfate (Plaquenil -) 200 mg PO DAILY [facility] Last Admin: 01/01/19 09:35 Dose: 200 mg Aztreonam 1 gm/ Dextrose 50 mls @ 100 mls/hr IVPB Q8H-IV [facility]; Protocol Last Admin: 01/01/19 09:34 Dose: 100 mls/hr Ketorolac Tromethamine (Toradol Injection -) 15 mg IVPUSH Q6H PRN PRN Reason: PAIN LEVEL 7 - 10 Stop: 01/05/19 08:19 Labetalol HCl (Normodyne -) 200 mg PO TID [facility] Last Admin: 01/01/19 05:31 Dose: 200 mg Magnesium Chloride (Slow-Mag -) 64 mg PO DAILY [facility] Last Admin: 01/01/19 09:36 Dose: 64 mg Multivit/Ca Carb/B Cmplx/FA/Prenat (Nephro-Rebecca -) 1 tablet PO DAILY [facility] Last Admin: 01/01/19 09:35 Dose: 1 tablet Multivitamins/Minerals/Vitamin C (Tab-A-Vit -) 1 tab PO DAILY [facility] Last Admin: 01/01/19 09:35 Dose: 1 tab Nifedipine (Procardia Xl -) 60 mg PO BID [facility] Last Admin: 01/01/19 09:35 Dose: 60 mg Non-Formulary Medication (Famotidine [Pepcid]) 20 mg PO DAILY [facility] Prednisone 5 mg/ Prednisone 2 (mg) 7 mg PO DAILY [facility] Last Admin: 01/01/19 09:35 Dose: 7 mg - Objective Vital Signs: Vital Signs Temperature 101.4 F H 01/01/19 06:57 Pulse Rate 92 H 01/01/19 06:57 Respiratory Rate 20 01/01/19 06:57 Blood Pressure 163/72 01/01/19 06:57 O2 Sat by Pulse Oximetry (%) 100 12/30/18 18:47 Constitutional: Yes: Calm, Mild Distress Cardiovascular: Yes: Regular Rate and Rhythm Respiratory: Yes: Regular, CTA Bilaterally Gastrointestinal: Yes: Normal Bowel Sounds, Soft Musculoskeletal: Yes: WNL Extremities: Yes: Other Neurological: Yes: Alert, Oriented Psychiatric: Yes: Alert, Oriented Labs: CBC, BMP 01/01/19 05:56 01/01/19 05:56 INR, PTT INR 1.01 (0.83-1.09) 12/30/18 13:57 Assessment/Plan 73 y/o F with PMH Lupus, lupus nephritis, 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 cellulitis Lupus PAD HTN HLD plan we will continue aztreonam will add vanco close watch rest as per the team if leg does not improve get imaging studies
[2019-01-01] MEDS ORDERED: PT OWN MED DRAWER 7, Y5N ONE ×2 (13:04→23:21)
[2019-01-01] MEDS: VANCOMYCIN 1,250 MG in DEXTROSE 5%-WATER - 250 ML IVPB SCH ×2 (13:07→23:43)
[2019-01-01] MEDS ORDERED: LACTATED RINGERS SOLUTION 1000 ML INFUS.BAG IV ONE (14:13)
--- NOTE | 2019-01-01 14:15 | PN ---
Teaching Attending Note Name of Resident: Esteban Jha ATTENDING PHYSICIAN STATEMENT I saw and evaluated the patient. I reviewed the resident's note and discussed the case with the resident. I agree with the resident's findings and plan as documented. SUBJECTIVE: Seen and examined; see resident note for further historical information. Febrile overnight; ID to determine if need to broaden coverage. Vascular eval pending. Hemodynamics stable. Continue to monitor. No s/s CLI. VS, labs, imaging reviewed NAD, AAO, resting in bed Wound demarcated; no extention or retreat. +1 DP/PT NC AT EOMI PERRLA RRR s1/2 Lungs CTAB NT ND +BS CN2-12 wnl, no fnd MRI pending; ordered 12/[address] Jha Arterial studies noted; LLE extensive disease. Pend vasc. sgy consult but + pulses, no 5p's ASSESSMENT AND PLAN: Patient with complex PMH presents with foot wound; history of prior BKA. Podiatry, vascular, ID following. Risks include prior BKA, prednisone use 2/2 lupus. Continue abx, immunosuppressants. Followup with surgical and specialty services; appreciate expert input in management of this patient. #Cellulitis, r/o osteomyelitis given chronicity of wound (Pending MRI; continue vanc and aztreonam. Complicated by underlying vascular disease and lupus with vasculitis requiring chronic prednisone/immunosuppressant use) #Lupus with vasculitis, nephritis, neuropathy (on prednisone, plaquenil; continue. No complaints of flare. Continue gabapentin for neuropathy. Monitor renal function closely for ULICES given prior nephropahty) #PAD (S/P stenting; vascular eval pending. +pulses; extensive vascular disease LLE on arterial doppler) #HTN (Continue home labetalol, nifedipine) #HLD (FU OP FLP) #Fe defic (Continue home iron) Full Code
--- NOTE | 2019-01-01 16:57 | CONSULT ---
Consult - Past Medical History Cardio/Vascular: Yes: CAD Gastrointestinal: Yes: GERD Renal/: Yes: Renal Failure, Other (renal obstruction s/p stents) ...LMP: 12/31/18 Rheumatology: Yes: Lupus, Vasculitis (chronic), Other (Bachets disease) Endocrine: Yes: Diabetes Mellitus - Past Surgical History Past Surgical History: Yes: Amputation (R AKA) - Alcohol/Substance Use Hx Alcohol Use: No - Smoking History Smoking history: Never smoked Have you smoked in the past 12 months: No Aproximately how many cigarettes per day: 0 If you are a former smoker, when did you quit?: 1979 - Social History Usual Living Arrangement: Other (her son and her grown grandson live with her) ADL: Independent History of Recent Travel: No Home Medications - Allergies Allergies/Adverse Reactions: Allergies Allergy/AdvReac Type Severity Reaction Status Date / Time Sulfa (Sulfonamide Allergy Severe RASH,VOMITI Verified 12/30/18 11:06 Antibiotics) NG,DIZZINES S codeine [Codeine] Allergy Hives Verified 12/30/18 11:06 Penicillins Allergy Hives Verified 12/30/18 11:06 lactose AdvReac Verified 12/30/18 11:06 ranitidine [From Zantac] AdvReac headache Verified 12/30/18 11:06 - Home Medications Home Medications: Ambulatory Orders Hydroxychloroquine Sulfate [Plaquenil] 200 mg PO DAILY 10/20/15 Nifedipine [Procardia Xl] 60 mg PO BID 10/20/15 predniSONE [Deltasone -] 7 mg PO DAILY 10/20/15 Iron,Carbonyl [Feosol] 65 mg PO DAILY 11/20/15 Vitamin B Complex [B Complex # 1] 1 each PO DAILY 11/20/15 Labetalol HCl 200 mg PO TID 07/22/17 Calcium Carbonate [Calcium] 1,000 mg PO DAILY 05/17/18 Famotidine [Pepcid] 20 mg PO DAILY 05/17/18 Gabapentin [Neurontin -] 600 mg PO TID 05/17/18 Magnesium Chloride [Slow-Mag -] 64 mg PO DAILY 05/17/18 Multivit-Min36/Iron/Folic Acid [Geritol Complete Tablet] 1 each PO DAILY Aspirin [ASA -] 81 mg PO DAILY tab.chew 06/01/18 Cholecalciferol (Vitamin D3) [Vitamin D3 -] 1,000 units PO DAILY 09/17/18 Family Disease History - Family Disease History Family Disease History: Other: Brother (dementia) Physical Exam Vital Signs: Vital Signs Temperature 99.2 F 01/01/19 13:13 Pulse Rate 85 01/01/19 13:13 Respiratory Rate 18 01/01/19 13:13 Blood Pressure 127/67 01/01/19 13:13 O2 Sat by Pulse Oximetry (%) 100 12/30/18 18:47 Labs: CBC, BMP 01/01/19 05:56 01/01/19 05:56
--- NOTE | 2019-01-01 18:38 | PN ---
Progress Note (short form) - Note Progress Note: fuv left foot. Not getting MRI according to her. Looking for her September MRI from [facility]. +cellulitis, +grade 2-3 wound left, +drainage, unimproved from yesterday after marking foot cellulitis lupus ulceration Need MRI or bone scan to evaluate for om. no foreign body on xray.will follow. abx as per ID. vascular note read and appreciated. Reviewed vascular study. Patient may need vascular intervention. Santyl to wound left foot. will follow.
--- NOTE | 2019-01-01 19:11 | PN ---
<Esteban Jha - Last Filed: 01/01/19 19:10> Physical Exam: SUBJECTIVE: Patient seen and examined at bedside. Pain at site of ulcer OBJECTIVE: Vital Signs Period Temp Pulse Resp BP Sys/Hidalgo Pulse Ox Last 24 Hr 98 F-101.4 F 79-99 18-20 127-163/53-81 Gen: NAD, AAOx3 HEENT: NCAT, EOMI Neck: supple, no jvd Cardio: rrr, normal s1s2, no mrg Pulm: cta b/l Abd: soft, nontender, nondistended, normal bs Ext: R BKA, no edema, 2+ L PD pulse, left plantar ulcer, stage 2, surrounding erythema, non-oozing. continues to Improve Laboratory Results - last 24 hr 01/01/19 01/01/19 01/01/19 05:56 05:56 16:14 WBC 16.0 H RBC 4.01 Hgb 10.0 L Hct 31.6 L MCV 78.7 L MCH 24.9 L MCHC 31.6 L RDW 18.3 H Plt Count 400 MPV 8.5 Sodium 143 Potassium 4.0 Chloride 105 Carbon Dioxide 26 Anion Gap 12 BUN 21.4 H Creatinine 1.1 Est GFR (CKD-EPI)AfAm 58.09 Est GFR (CKD-EPI)NonAf 50.12 Random Glucose 105 Lactic Acid 1.2 Calcium 9.7 Active Medications Generic Name Dose Route Start Last Admin Trade Name Freq PRN Reason Stop Dose Admin Acetaminophen 650 mg 12/31/18 08:20 12/31/18 11:28 Tylenol Oral Solution - PO 650 mg Q6H PRN Administration PAIN Aspirin 81 mg 12/31/18 10:00 01/01/19 09:34 Asa - PO 81 mg DAILY [facility] Administration Calcium Carbonate 1,000 mg 12/31/18 10:00 01/01/19 09:35 Os-Ryan 500mg - PO 1,000 mg DAILY [facility] Administration Cholecalciferol 1,000 unit 12/31/18 10:00 01/01/19 09:35 Vitamin D3 - PO 1,000 unit DAILY [facility] Administration Collagenase 1 applic 01/01/19 19:00 Santyl - TP DAILY [facility] Protocol Ferrous Sulfate 325 mg 12/31/18 10:00 01/01/19 09:35 Feosol - PO 325 mg DAILY [facility] Administration Gabapentin 600 mg 12/30/18 22:00 01/01/19 13:09 Neurontin - PO 600 mg TID [facility] Administration Heparin Sodium (Porcine) 5,000 unit 01/01/19 14:15 01/01/19 14:43 Heparin - SQ Not Given BID [facility] Hydroxychloroquine Sulfate 200 mg 12/31/18 10:00 01/01/19 09:35 Plaquenil - PO 200 mg DAILY [facility] Administration Aztreonam 1 gm/ Dextrose 50 mls @ 100 mls/hr 12/31/18 10:00 01/01/19 17:05 IVPB 100 mls/hr Q8H-IV [facility] Administration Protocol Vancomycin HCl 1,250 mg/ 250 mls @ 166.667 mls/hr 01/01/19 11:15 01/01/19 13: 07 Dextrose IVPB 166.667 mls/hr Q12H [facility] Administration Protocol Ketorolac Tromethamine 15 mg 12/31/18 08:20 Toradol Injection - IVPUSH 01/05/19 08:19 Q6H PRN PAIN LEVEL 7 - 10 Labetalol HCl 200 mg 12/30/18 22:00 01/01/19 13:09 Normodyne - PO 200 mg TID [facility] Administration Magnesium Chloride 64 mg 12/31/18 10:00 01/01/19 09:36 Slow-Mag - PO 64 mg DAILY [facility] Administration Multivit/Ca Carb/B Cmplx/FA/Prenat 1 tablet 12/31/18 10:00 01/01/19 09:35 Nephro-Rebecca - PO 1 tablet DAILY [facility] Administration Multivitamins/Minerals/Vitamin C 1 tab 12/31/18 10:00 01/01/19 09:35 Tab-A-Vit - PO 1 tab DAILY [facility] Administration Nifedipine 60 mg 12/30/18 22:00 01/01/19 09:35 Procardia Xl - PO 60 mg BID [facility] Administration Non-Formulary Medication 20 mg 12/31/18 10:00 Famotidine [Pepcid] PO DAILY [facility] Prednisone 5 mg/ Prednisone 2 7 mg 12/31/18 10:00 01/01/19 09:35 mg PO 7 mg DAILY [facility] Administration ASSESSMENT/PLAN: Pt is a 73 y/o F with PMH Lupus, lupus nephritis, 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 #Cellulitis -Aztreonam, Vanc in ED -ID, Bobde -Podiatry, Stepanian -c/w IV ABx, ID -wound care per podiatry #Lupus w/ vasculitis, nephritis, neuropathy -prednisone -hydroxychloroquine -gabapentin #PAD -s/p stenting -stable -ASA #HTN -labetalol -nifedipine #HLD -stable #Fe defic -Feosol Visit type - Emergency Visit Emergency Visit: No - New Patient This patient is new to me today: No - Critical Care Critical Care patient: No ATTENDING PHYSICIAN STATEMENT I saw and evaluated the patient. I reviewed the resident's note and discussed the case with the resident. I agree with the resident's findings and plan as documented. SUBJECTIVE: OBJECTIVE: ASSESSMENT AND PLAN: <Rafita Gibbons - Last Filed: 01/05/19 18:06> Physical Exam: Seen and examined; agree with above aside from as supplemented by myself. Verified all quintana parts of history and physical exam ATTENDING PHYSICIAN STATEMENT I saw and evaluated the patient. I reviewed the resident's note and discussed the case with the resident. I agree with the resident's findings and plan as documented. SUBJECTIVE: OBJECTIVE: ASSESSMENT AND PLAN:
[2019-01-01] MEDS: COLLAGENASE CLOSTRIDIUM HIST. 30 GRAMS TUBE TP SCH (21:46)
[2019-01-02] MEDS: AZTREONAM 1 GM in DEXTROSE 5%-WATER - 50 ML IVPB SCH ×3 (02:17→19:20)
[2019-01-02] MEDS ORDERED: AZTREONAM 1 GM VIAL (RESTRICTED TO ID) ONE ×3 (04:32→19:10)
[2019-01-02] MEDS ORDERED: DEXTROSE 5%-WATER - 50 ML IVPB ONE ×2 (04:33→10:05)
[2019-01-02] MEDS: GABAPENTIN 300 MG CAPSULE (FP) PO SCH ×3 (07:17→21:32)
[2019-01-02] MEDS: LABETALOL HCL 100 MG TABLET (FP) PO SCH ×3 (07:17→21:32)
[2019-01-02 08:32] LABS: HEMATOCRIT 31.3 % (32.4-45.2); MCH 25.1 pg (25.7-33.7); MCHC 31.9 g/dl (32.0-36.0); MEAN CELL VOLUME 78.8 fl (80-96); MEAN PLT VOLUME 8.5 fl (7.5-11.1); PLATELET COUNT 393 K/MM3 (134-434); RBC 3.97 M/mm3 (3.60-5.2); RDW 18.7 % (11.6-15.6); WHITE BLOOD COUNT 11.9 K/mm3 (4.0-10.0)
[2019-01-02 08:44] LABS: CALCIUM 9.2 mg/dL (8.5-10.1); POTASSIUM 4.3 mmol/L (3.5-5.1)
--- NOTE | 2019-01-02 08:46 | PN ---
Progress Note (short form) - Note Progress Note: fuv left foot. No MRI yet. +cellulitis, +grade 2-3 wound left, +drainage, improved about 25% from yesterday after marking foot cellulitis lupus ulceration Need MRI or bone scan to evaluate for om. Called MRI they stated would be done after 5 today. abx as per ID. Reviewed vascular study. Patient may need vascular intervention. Santyl to wound left foot. will follow.
--- NOTE | 2019-01-02 08:47 | PN ---
Physical Exam: SUBJECTIVE: Patient seen and examined; she is hemodynamically stable and afebrile. Has not had fevers overnight. Foot is slightly improved based on margins drawn by podiatry. Pending MRI. D/W Dr. Daniels. Pending vascular sgy eval-deferring CTA order to their service. Will discuss. OBJECTIVE: Vital Signs Period Temp Pulse Resp BP Sys/Hidalgo Pulse Ox Last 24 Hr 98 F-99.2 F 74-99 18-20 107-157/46-74 VS, labs, imaging reviewed NAD, AAO, resting in bed. Wound demarcated; no extention or retreat. +1 DP/PT NC AT EOMI PERRLA RRR s1/2 Lungs CTAB NT ND +BS CN2-12 wnl, no fnd Normal mood, appropriate behavior. Neck supple, trachea midline, no LN Laboratory Results - last 24 hr 01/01/19 01/02/19 01/02/19 16:14 07:05 07:05 WBC 11.9 H RBC 3.97 Hgb 10.0 L Hct 31.3 L MCV 78.8 L MCH 25.1 L MCHC 31.9 L RDW 18.7 H Plt Count 393 MPV 8.5 Sodium 143 Potassium 4.3 Chloride 109 H Carbon Dioxide 27 Anion Gap 8 BUN 17.0 Creatinine 1.0 Est GFR (CKD-EPI)AfAm 65.18 Est GFR (CKD-EPI)NonAf 56.24 Random Glucose 82 Lactic Acid 1.2 Calcium 9.2 Active Medications Generic Name Dose Route Start Last Admin Trade Name Freq PRN Reason Stop Dose Admin Acetaminophen 650 mg 12/31/18 08:20 12/31/18 11:28 Tylenol Oral Solution - PO 650 mg Q6H PRN Administration PAIN Aspirin 81 mg 12/31/18 10:00 01/01/19 09:34 Asa - PO 81 mg DAILY [facility] Administration Calcium Carbonate 1,000 mg 12/31/18 10:00 01/01/19 09:35 Os-Ryan 500mg - PO 1,000 mg DAILY [facility] Administration Cholecalciferol 1,000 unit 12/31/18 10:00 01/01/19 09:35 Vitamin D3 - PO 1,000 unit DAILY [facility] Administration Collagenase 1 applic 01/01/19 19:00 01/01/19 21:46 Santyl - TP 1 applic DAILY [facility] Administration Protocol Ferrous Sulfate 325 mg 12/31/18 10:00 01/01/19 09:35 Feosol - PO 325 mg DAILY [facility] Administration Gabapentin 600 mg 12/30/18 22:00 01/02/19 07:17 Neurontin - PO 600 mg TID [facility] Administration Heparin Sodium (Porcine) 5,000 unit 01/01/19 14:15 01/01/19 21:45 Heparin - SQ 5,000 unit BID [facility] Administration Hydroxychloroquine Sulfate 200 mg 12/31/18 10:00 01/01/19 09:35 Plaquenil - PO 200 mg DAILY [facility] Administration Aztreonam 1 gm/ Dextrose 50 mls @ 100 mls/hr 12/31/18 10:00 01/02/19 02:17 IVPB 100 mls/hr Q8H-IV [facility] Administration Protocol Vancomycin HCl 1,250 mg/ 250 mls @ 166.667 mls/hr 01/01/19 11:15 01/01/19 23: 43 Dextrose IVPB 166.667 mls/hr Q12H [facility] Administration Protocol Ketorolac Tromethamine 15 mg 12/31/18 08:20 Toradol Injection - IVPUSH 01/05/19 08:19 Q6H PRN PAIN LEVEL 7 - 10 Labetalol HCl 200 mg 12/30/18 22:00 01/02/19 07:17 Normodyne - PO 200 mg TID [facility] Administration Magnesium Chloride 64 mg 12/31/18 10:00 01/01/19 09:36 Slow-Mag - PO 64 mg DAILY [facility] Administration Multivit/Ca Carb/B Cmplx/FA/Prenat 1 tablet 12/31/18 10:00 01/01/19 09:35 Nephro-Rebecca - PO 1 tablet DAILY [facility] Administration Multivitamins/Minerals/Vitamin C 1 tab 12/31/18 10:00 01/01/19 09:35 Tab-A-Vit - PO 1 tab DAILY [facility] Administration Nifedipine 60 mg 12/30/18 22:00 01/01/19 21:45 Procardia Xl - PO 60 mg BID [facility] Administration Non-Formulary Medication 20 mg 12/31/18 10:00 Famotidine [Pepcid] PO DAILY [facility] Prednisone 5 mg/ Prednisone 2 7 mg 12/31/18 10:00 01/01/19 09:35 mg PO 7 mg DAILY [facility] Administration MRI pending; discussed with Dr. Daniels. We called down and verified it would be done today. ASSESSMENT/PLAN: Patient with complex PMH presents with foot wound; history of prior BKA. Podiatry, vascular, ID following. Risks include prior BKA, prednisone use 2/2 lupus. Continue abx, immunosuppressants. Followup with surgical and specialty services; appreciate expert input in management of this patient. #Cellulitis, r/o osteomyelitis given chronicity of wound (MRI to be completed today, podiatry following. Need to determine if requires surgical debridement and salvage determiner abx based on imaging results. Continue abx per ID. No further fevers. ESR/CRP and WBC in AM. Continue santyl, followup vascular recs.) #Lupus with vasculitis, nephritis, neuropathy (on prednisone, plaquenil; continue. No complaints of flare. Continue gabapentin for neuropathy. Monitor renal function closely for ULICES given prior nephropahty) #PAD (S/P stenting; vascular eval pending. +pulses; extensive vascular disease LLE on arterial doppler) #HTN (Continue home labetalol, nifedipine) #HLD (FU OP FLP) #Fe defic (Continue home iron) Full Code Visit type - Emergency Visit Emergency Visit: No - New Patient This patient is new to me today: No - Critical Care Critical Care patient: No
--- NOTE | 2019-01-02 09:24 | PN ---
Progress Note, Physician Chief Complaint: stable no new issues still red but improving - Current Medication List Current Medications: Active Medications Acetaminophen (Tylenol Oral Solution -) 650 mg PO Q6H PRN PRN Reason: PAIN Last Admin: 12/31/18 11:28 Dose: 650 mg Aspirin (Asa -) 81 mg PO DAILY [facility] Last Admin: 01/01/19 09:34 Dose: 81 mg Calcium Carbonate (Os-Ryan 500mg -) 1,000 mg PO DAILY [facility] Last Admin: 01/01/19 09:35 Dose: 1,000 mg Cholecalciferol (Vitamin D3 -) 1,000 unit PO DAILY [facility] Last Admin: 01/01/19 09:35 Dose: 1,000 unit Collagenase (Santyl -) 1 applic TP DAILY [facility]; Protocol Last Admin: 01/01/19 21:46 Dose: 1 applic Ferrous Sulfate (Feosol -) 325 mg PO DAILY [facility] Last Admin: 01/01/19 09:35 Dose: 325 mg Gabapentin (Neurontin -) 600 mg PO TID [facility] Last Admin: 01/02/19 07:17 Dose: 600 mg Heparin Sodium (Porcine) (Heparin -) 5,000 unit SQ BID [facility] Last Admin: 01/01/19 21:45 Dose: 5,000 unit Hydroxychloroquine Sulfate (Plaquenil -) 200 mg PO DAILY [facility] Last Admin: 01/01/19 09:35 Dose: 200 mg Aztreonam 1 gm/ Dextrose 50 mls @ 100 mls/hr IVPB Q8H-IV [facility]; Protocol Last Admin: 01/02/19 02:17 Dose: 100 mls/hr Vancomycin HCl 1,250 mg/ (Dextrose) 250 mls @ 166.667 mls/hr IVPB Q12H [facility]; Protocol Last Admin: 01/01/19 23:43 Dose: 166.667 mls/hr Ketorolac Tromethamine (Toradol Injection -) 15 mg IVPUSH Q6H PRN PRN Reason: PAIN LEVEL 7 - 10 Stop: 01/05/19 08:19 Labetalol HCl (Normodyne -) 200 mg PO TID [facility] Last Admin: 01/02/19 07:17 Dose: 200 mg Magnesium Chloride (Slow-Mag -) 64 mg PO DAILY [facility] Last Admin: 01/01/19 09:36 Dose: 64 mg Multivit/Ca Carb/B Cmplx/FA/Prenat (Nephro-Rebecca -) 1 tablet PO DAILY [facility] Last Admin: 01/01/19 09:35 Dose: 1 tablet Multivitamins/Minerals/Vitamin C (Tab-A-Vit -) 1 tab PO DAILY [facility] Last Admin: 01/01/19 09:35 Dose: 1 tab Nifedipine (Procardia Xl -) 60 mg PO BID [facility] Last Admin: 01/01/19 21:45 Dose: 60 mg Non-Formulary Medication (Famotidine [Pepcid]) 20 mg PO DAILY [facility] Prednisone 5 mg/ Prednisone 2 (mg) 7 mg PO DAILY [facility] Last Admin: 01/01/19 09:35 Dose: 7 mg - Objective Vital Signs: Vital Signs Temperature 98 F 01/02/19 06:00 Pulse Rate 78 01/02/19 06:00 Respiratory Rate 20 01/02/19 06:00 Blood Pressure 121/69 01/02/19 06:00 O2 Sat by Pulse Oximetry (%) 100 12/30/18 18:47 Constitutional: Yes: Calm, Mild Distress Cardiovascular: Yes: S1, S2 Respiratory: Yes: Regular, CTA Bilaterally Gastrointestinal: Yes: Normal Bowel Sounds, Soft Musculoskeletal: Yes: WNL Extremities: Yes: Erythema (of the left foot), Other Wound/Incision: Yes: Open to air Neurological: Yes: Alert, Oriented Psychiatric: Yes: Alert, Oriented Labs: CBC, BMP 01/02/19 07:05 01/02/19 07:05 INR, PTT INR 1.01 (0.83-1.09) 12/30/18 13:57 Assessment/Plan 73 y/o F with PMH Lupus, lupus nephritis, 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 cellulitis Lupus PAD HTN HLD plan ct abx podiatry on team close watch rest as per the team if leg does not improve get imaging studies
[2019-01-02] MEDS ORDERED: PT OWN MED DRAWER 7, Y5N ONE (10:06)
[2019-01-02] MEDS: NIFEdipine E.R 60 MG TABLET (UD) PO SCH ×2 (10:07→21:31)
[2019-01-02] MEDS: COLLAGENASE CLOSTRIDIUM HIST. 30 GRAMS TUBE TP SCH (10:07)
[2019-01-02] MEDS: FERROUS SO4 325 MG TABLET (FP) PO SCH (10:08)
[2019-01-02] MEDS: CHOLECALCIFEROL (VIT D3) 1,000 UNIT (25 MCG) TABLET PO SCH (10:08)
[2019-01-02] MEDS: HYDROXYCHLOROQUINE SO4 200 MG TABLET (FP) PO SCH (10:08)
[2019-01-02] MEDS: HEPARIN NA (PORCINE) 5,000 UNITS/ML 1ML VIAL SQ SCH ×2 (10:10→21:32)
[2019-01-02] MEDS: ASPIRIN 81 MG CHEWABLE TABLETS PO SCH (10:10)
[2019-01-02] MEDS: MULTIVITAMINS (DAILY MVI) TABLET (FP) PO SCH (10:10)
[2019-01-02] MEDS: VITAMIN B COMP W-C 1 EA TABLET PO SCH (10:10)
[2019-01-02] MEDS: MAGNESIUM CL 64 MG TABLET.SA PO SCH (10:11)
[2019-01-02] MEDS: CALCIUM (OYSTER SHELL) 500 MG TABLET (FP) PO SCH (10:12)
[2019-01-02] MEDS: POLYETHYLENE GLYCOL 3350 119 GM BTL PO SCH (10:14)
[2019-01-02] MEDS: VANCOMYCIN 1,250 MG in DEXTROSE 5%-WATER - 250 ML IVPB SCH (12:17)
[2019-01-03] MEDS: VANCOMYCIN 1,250 MG in DEXTROSE 5%-WATER - 250 ML IVPB SCH ×2 (00:02→13:54)
[2019-01-03] MEDS ORDERED: DEXTROSE 5%-WATER - 50 ML IVPB ONE ×3 (01:06→18:58)
[2019-01-03] MEDS ORDERED: AZTREONAM 1 GM VIAL (RESTRICTED TO ID) ONE ×3 (01:06→18:58)
[2019-01-03] MEDS: AZTREONAM 1 GM in DEXTROSE 5%-WATER - 50 ML IVPB SCH ×3 (02:34→19:05)
[2019-01-03] MEDS: GABAPENTIN 300 MG CAPSULE (FP) PO SCH ×3 (05:45→22:32)
[2019-01-03] MEDS: LABETALOL HCL 100 MG TABLET (FP) PO SCH ×3 (05:45→22:32)
[2019-01-03 07:37] LABS: BASO % 0.9 % (0-2.0); HEMOGLOBIN 9.6 GM/dL (10.7-15.3); MCH 25.1 pg (25.7-33.7); MCHC 31.9 g/dl (32.0-36.0); MEAN PLT VOLUME 8.6 fl (7.5-11.1); MONO % 8.8 % (3.8-10.2); NEUT % 65.3 % (42.8-82.8); PLATELET COUNT 368 K/MM3 (134-434); RDW 18.2 % (11.6-15.6); WHITE BLOOD COUNT 11.1 K/mm3 (4.0-10.0)
[2019-01-03 07:54] LABS: ALBUMIN 2.5 g/dl (3.4-5.0); BILIRUBIN,TOTAL 0.2 mg/dL (0.2-1); BLOOD UREA NITROGEN 17.4 mg/dL (7-18); CALCIUM 9.3 mg/dL (8.5-10.1); CREATININE 1.1 mg/dL (0.55-1.3); MAGNESIUM 2.3 mg/dL (1.8-2.4); TOT PROT 6.6 g/dl (6.4-8.2)
[2019-01-03] MEDS ORDERED: PT OWN MED DRAWER 7, Y5N ONE (09:20)
[2019-01-03] MEDS: HYDROXYCHLOROQUINE SO4 200 MG TABLET (FP) PO SCH (09:26)
[2019-01-03] MEDS: CHOLECALCIFEROL (VIT D3) 1,000 UNIT (25 MCG) TABLET PO SCH (09:26)
[2019-01-03] MEDS: MULTIVITAMINS (DAILY MVI) TABLET (FP) PO SCH (09:26)
[2019-01-03] MEDS: ASPIRIN 81 MG CHEWABLE TABLETS PO SCH (09:26)
[2019-01-03] MEDS: VITAMIN B COMP W-C 1 EA TABLET PO SCH (09:26)
[2019-01-03] MEDS: CALCIUM (OYSTER SHELL) 500 MG TABLET (FP) PO SCH (09:27)
[2019-01-03] MEDS: NIFEdipine E.R 60 MG TABLET (UD) PO SCH ×2 (09:27→22:32)
[2019-01-03] MEDS: FERROUS SO4 325 MG TABLET (FP) PO SCH (09:27)
[2019-01-03] MEDS: MAGNESIUM CL 64 MG TABLET.SA PO SCH (09:28)
[2019-01-03] MEDS: HEPARIN NA (PORCINE) 5,000 UNITS/ML 1ML VIAL SQ SCH ×2 (09:29→22:32)
[2019-01-03] MEDS: POLYETHYLENE GLYCOL 3350 119 GM BTL PO SCH (09:30)
[2019-01-03 09:47] LABS: ERYTHROCYTE SEDIMENTATION RATE 97 mm/hr (0-30)
--- NOTE | 2019-01-03 09:50 | PN ---
Physical Exam: SUBJECTIVE: Patient seen and examined; ESR up to 97, CRP up to 13 today. ID and podiatry continue to follow. No overnight events communicated to myself. Afebrile and hemodynamically stable with pain controlled. 10 sys ROS done and negative aside from HPI OBJECTIVE: Vital Signs Period Temp Pulse Resp BP Sys/Hidalgo Pulse Ox Last 24 Hr 97.6 F-98.4 F 75-80 18-20 132-153/50-75 98 VS, labs, imaging reviewed NAD, AAO, resting in bed. Wound demarcated; no extention or retreat. +1 DP/PT NC AT EOMI PERRLA RRR s1/2 Lungs CTAB NT ND +BS CN2-12 wnl, no fnd Normal mood, appropriate behavior. Neck supple, trachea midline, no LN Laboratory Results - last 24 hr 01/03/19 01/03/19 06:48 06:48 WBC 11.1 H RBC 3.80 Hgb 9.6 L Hct 30.0 L MCV 79.0 L MCH 25.1 L MCHC 31.9 L RDW 18.2 H Plt Count 368 MPV 8.6 Absolute Neuts (auto) 7.2 Neutrophils % 65.3 Lymphocytes % 22.0 Monocytes % 8.8 Eosinophils % 3.0 Basophils % 0.9 Nucleated RBC % 0 ESR 97 H Sodium 142 Potassium 4.0 Chloride 109 H Carbon Dioxide 27 Anion Gap 6 L BUN 17.4 Creatinine 1.1 Est GFR (CKD-EPI)AfAm 58.09 Est GFR (CKD-EPI)NonAf 50.12 Random Glucose 83 Calcium 9.3 Magnesium 2.3 Total Bilirubin 0.2 AST 17 ALT 22 Alkaline Phosphatase 72 C-Reactive Protein 13.7 H Total Protein 6.6 Albumin 2.5 L Active Medications Generic Name Dose Route Start Last Admin Trade Name Freq PRN Reason Stop Dose Admin Acetaminophen 1,000 mg 01/02/19 09:41 Tylenol - PO Q6H PRN pain Aspirin 81 mg 12/31/18 10:00 01/03/19 09:26 Asa - PO 81 mg DAILY [facility] Administration Calcium Carbonate 1,000 mg 12/31/18 10:00 01/03/19 09:27 Os-Ryan 500mg - PO 1,000 mg DAILY [facility] Administration Cholecalciferol 1,000 unit 12/31/18 10:00 01/03/19 09:26 Vitamin D3 - PO 1,000 unit DAILY [facility] Administration Collagenase 1 applic 01/01/19 19:00 01/02/19 10:07 Santyl - TP 1 applic DAILY [facility] Administration Protocol Ferrous Sulfate 325 mg 12/31/18 10:00 01/03/19 09:27 Feosol - PO 325 mg DAILY [facility] Administration Gabapentin 600 mg 12/30/18 22:00 01/03/19 05:45 Neurontin - PO 600 mg TID [facility] Administration Heparin Sodium (Porcine) 5,000 unit 01/01/19 14:15 01/03/19 09:29 Heparin - SQ 5,000 unit BID [facility] Administration Hydroxychloroquine Sulfate 200 mg 12/31/18 10:00 01/03/19 09:26 Plaquenil - PO 200 mg DAILY [facility] Administration Aztreonam 1 gm/ Dextrose 50 mls @ 100 mls/hr 12/31/18 10:00 01/03/19 09:24 IVPB 100 mls/hr Q8H-IV [facility] Administration Protocol Vancomycin HCl 1,250 mg/ 250 mls @ 166.667 mls/hr 01/01/19 11:15 01/03/19 00: 02 Dextrose IVPB 166.667 mls/hr Q12H [facility] Administration Protocol Labetalol HCl 200 mg 12/30/18 22:00 01/03/19 05:45 Normodyne - PO 200 mg TID [facility] Administration Magnesium Chloride 64 mg 12/31/18 10:00 01/03/19 09:28 Slow-Mag - PO 64 mg DAILY [facility] Administration Multivit/Ca Carb/B Cmplx/FA/Prenat 1 tablet 12/31/18 10:00 01/03/19 09:26 Nephro-Rebecca - PO 1 tablet DAILY [facility] Administration Multivitamins/Minerals/Vitamin C 1 tab 12/31/18 10:00 01/03/19 09:26 Tab-A-Vit - PO 1 tab DAILY [facility] Administration Nifedipine 60 mg 12/30/18 22:00 01/03/19 09:27 Procardia Xl - PO 60 mg BID [facility] Administration Non-Formulary Medication 20 mg 12/31/18 10:00 Famotidine [Pepcid] PO DAILY [facility] Polyethylene Glycol 17 gm 01/02/19 10:00 01/03/19 09:30 Miralax (For Daily Use) - PO 17 grams DAILY [facility] Administration Prednisone 5 mg/ Prednisone 2 7 mg 12/31/18 10:00 01/03/19 09:27 mg PO 7 mg DAILY [facility] Administration ASSESSMENT/PLAN: Patient with complex PMH presents with foot wound; history of prior BKA. Podiatry, vascular, ID following. Risks include prior BKA, prednisone use 2/2 lupus. Continue abx, immunosuppressants. Followup with surgical and specialty services; appreciate expert input in management of this patient. Pending MRI read. #Cellulitis, r/o osteomyelitis given chronicity of wound (MRI done; pending read , podiatry following. 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 Continue abx per ID. No further fevers. ESR/CRP and WBC in AM-WBC ok but inflammatory markers trended up. Continue santyl, followup vascular recs.) #Lupus with vasculitis, nephritis, neuropathy (on prednisone, plaquenil; continue. No complaints of flare. Continue gabapentin for neuropathy. Monitor renal function closely for ULICES given prior nephropathy. Consider potential for flare with uptrending ESR/CRP in the setting of stabilized infection, but ideally would like to see MRI results before assuming any source control) #PAD (S/P stenting; vascular eval noted. +pulses; extensive vascular disease LLE on arterial doppler) #HTN (Continue home labetalol, nifedipine) #HLD (FU OP FLP) #Fe defic (Continue home iron) Full Code Visit type - Emergency Visit Emergency Visit: No - New Patient This patient is new to me today: No - Critical Care Critical Care patient: No
--- NOTE | 2019-01-03 09:52 | PN ---
Progress Note (short form) - Note Progress Note: fuv left foot. No MRI report yet. +cellulitis, +grade 2-3 wound left, +drainage, improved cellulitis 75% from yesterday after marking foot cellulitis lupus ulceration Awaiting MRI result. abx as per ID. Patient may need vascular intervention. Continue Santyl to wound left foot. will follow.
[2019-01-03] MEDS: COLLAGENASE CLOSTRIDIUM HIST. 30 GRAMS TUBE TP SCH (09:53)
--- NOTE | 2019-01-03 13:40 | PN ---
Progress Note, Physician History of Present Illness: patient stable no new issues - Current Medication List Current Medications: Active Medications Acetaminophen (Tylenol -) 1,000 mg PO Q6H PRN PRN Reason: pain Aspirin (Asa -) 81 mg PO DAILY [facility] Last Admin: 01/03/19 09:26 Dose: 81 mg Calcium Carbonate (Os-Ryan 500mg -) 1,000 mg PO DAILY [facility] Last Admin: 01/03/19 09:27 Dose: 1,000 mg Cholecalciferol (Vitamin D3 -) 1,000 unit PO DAILY [facility] Last Admin: 01/03/19 09:26 Dose: 1,000 unit Collagenase (Santyl -) 1 applic TP DAILY [facility]; Protocol Last Admin: 01/03/19 09:53 Dose: 1 applic Ferrous Sulfate (Feosol -) 325 mg PO DAILY [facility] Last Admin: 01/03/19 09:27 Dose: 325 mg Gabapentin (Neurontin -) 600 mg PO TID [facility] Last Admin: 01/03/19 05:45 Dose: 600 mg Heparin Sodium (Porcine) (Heparin -) 5,000 unit SQ BID [facility] Last Admin: 01/03/19 09:29 Dose: 5,000 unit Hydroxychloroquine Sulfate (Plaquenil -) 200 mg PO DAILY [facility] Last Admin: 01/03/19 09:26 Dose: 200 mg Aztreonam 1 gm/ Dextrose 50 mls @ 100 mls/hr IVPB Q8H-IV [facility]; Protocol Last Admin: 01/03/19 09:24 Dose: 100 mls/hr Vancomycin HCl 1,250 mg/ (Dextrose) 250 mls @ 166.667 mls/hr IVPB Q12H [facility]; Protocol Last Admin: 01/03/19 00:02 Dose: 166.667 mls/hr Labetalol HCl (Normodyne -) 200 mg PO TID [facility] Last Admin: 01/03/19 05:45 Dose: 200 mg Magnesium Chloride (Slow-Mag -) 64 mg PO DAILY [facility] Last Admin: 01/03/19 09:28 Dose: 64 mg Multivit/Ca Carb/B Cmplx/FA/Prenat (Nephro-Rebecca -) 1 tablet PO DAILY [facility] Last Admin: 01/03/19 09:26 Dose: 1 tablet Multivitamins/Minerals/Vitamin C (Tab-A-Vit -) 1 tab PO DAILY [facility] Last Admin: 01/03/19 09:26 Dose: 1 tab Nifedipine (Procardia Xl -) 60 mg PO BID [facility] Last Admin: 01/03/19 09:27 Dose: 60 mg Non-Formulary Medication (Famotidine [Pepcid]) 20 mg PO DAILY [facility] Polyethylene Glycol (Miralax (For Daily Use) -) 17 gm PO DAILY [facility] Last Admin: 01/03/19 09:30 Dose: 17 grams Prednisone 5 mg/ Prednisone 2 (mg) 7 mg PO DAILY [facility] Last Admin: 01/03/19 09:27 Dose: 7 mg - Objective Vital Signs: Vital Signs Temperature 97.6 F 01/03/19 09:12 Pulse Rate 77 01/03/19 09:12 Respiratory Rate 18 01/03/19 09:12 Blood Pressure 142/62 01/03/19 09:12 O2 Sat by Pulse Oximetry (%) 98 01/02/19 21:00 Constitutional: Yes: No Distress, Calm Cardiovascular: Yes: S1, S2 Respiratory: Yes: Regular, CTA Bilaterally Gastrointestinal: Yes: Normal Bowel Sounds, Soft Musculoskeletal: Yes: Other Extremities: Yes: Other Neurological: Yes: Alert, Oriented Psychiatric: Yes: Alert, Oriented Labs: CBC, BMP 01/03/19 06:48 01/03/19 06:48 INR, PTT INR 1.01 (0.83-1.09) 12/30/18 13:57 Assessment/Plan 73 y/o F with PMH Lupus, lupus nephritis, 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 cellulitis Lupus PAD HTN HLD plan ct abx podiatry on team close watch rest as per the team if leg does not improve get imaging studies
[2019-01-03] MEDS: ACETAMINOPHEN 500 MG TABLET (FP) PO PRN (23:33)
[2019-01-04] MEDS ORDERED: AZTREONAM 1 GM VIAL (RESTRICTED TO ID) ONE ×3 (02:22→18:20)
[2019-01-04] MEDS ORDERED: DEXTROSE 5%-WATER - 50 ML IVPB ONE ×3 (02:22→18:20)
[2019-01-04] MEDS: AZTREONAM 1 GM in DEXTROSE 5%-WATER - 50 ML IVPB SCH ×3 (02:23→18:24)
[2019-01-04] MEDS: LABETALOL HCL 100 MG TABLET (FP) PO SCH ×3 (05:09→22:03)
[2019-01-04] MEDS: GABAPENTIN 300 MG CAPSULE (FP) PO SCH ×3 (05:09→22:03)
--- NOTE | 2019-01-04 09:06 | PN ---
Progress Note, Physician History of Present Illness: patients leg still very painful dressing removed wound now with slough - Current Medication List Current Medications: Active Medications Acetaminophen (Tylenol -) 1,000 mg PO Q6H PRN PRN Reason: pain Last Admin: 01/03/19 23:33 Dose: 1,000 mg Aspirin (Asa -) 81 mg PO DAILY [facility] Last Admin: 01/03/19 09:26 Dose: 81 mg Calcium Carbonate (Os-Ryan 500mg -) 1,000 mg PO DAILY [facility] Last Admin: 01/03/19 09:27 Dose: 1,000 mg Cholecalciferol (Vitamin D3 -) 1,000 unit PO DAILY [facility] Last Admin: 01/03/19 09:26 Dose: 1,000 unit Collagenase (Santyl -) 1 applic TP DAILY [facility]; Protocol Last Admin: 01/03/19 09:53 Dose: 1 applic Ferrous Sulfate (Feosol -) 325 mg PO DAILY [facility] Last Admin: 01/03/19 09:27 Dose: 325 mg Gabapentin (Neurontin -) 600 mg PO TID [facility] Last Admin: 01/04/19 05:09 Dose: 600 mg Heparin Sodium (Porcine) (Heparin -) 5,000 unit SQ BID [facility] Last Admin: 01/03/19 22:32 Dose: 5,000 unit Hydroxychloroquine Sulfate (Plaquenil -) 200 mg PO DAILY [facility] Last Admin: 01/03/19 09:26 Dose: 200 mg Aztreonam 1 gm/ Dextrose 50 mls @ 100 mls/hr IVPB Q8H-IV [facility]; Protocol Last Admin: 01/04/19 02:23 Dose: 100 mls/hr Labetalol HCl (Normodyne -) 200 mg PO TID [facility] Last Admin: 01/04/19 05:09 Dose: 200 mg Magnesium Chloride (Slow-Mag -) 64 mg PO DAILY [facility] Last Admin: 01/03/19 09:28 Dose: 64 mg Multivit/Ca Carb/B Cmplx/FA/Prenat (Nephro-Rebecca -) 1 tablet PO DAILY [facility] Last Admin: 01/03/19 09:26 Dose: 1 tablet Multivitamins/Minerals/Vitamin C (Tab-A-Vit -) 1 tab PO DAILY [facility] Last Admin: 01/03/19 09:26 Dose: 1 tab Nifedipine (Procardia Xl -) 60 mg PO BID [facility] Last Admin: 01/03/19 22:32 Dose: 60 mg Non-Formulary Medication (Famotidine [Pepcid]) 20 mg PO DAILY [facility] Polyethylene Glycol (Miralax (For Daily Use) -) 17 gm PO DAILY [facility] Last Admin: 01/03/19 09:30 Dose: 17 grams Prednisone 5 mg/ Prednisone 2 (mg) 7 mg PO DAILY [facility] Last Admin: 01/03/19 09:27 Dose: 7 mg - Objective Vital Signs: Vital Signs Temperature 97.8 F 01/04/19 05:11 Pulse Rate 70 01/04/19 05:11 Respiratory Rate 16 01/04/19 05:11 Blood Pressure 130/58 L 01/04/19 05:11 O2 Sat by Pulse Oximetry (%) 98 01/03/19 21:00 Constitutional: Yes: Calm, Mild Distress Cardiovascular: Yes: S1, S2 Respiratory: Yes: Regular, CTA Bilaterally Gastrointestinal: Yes: Normal Bowel Sounds, Soft Musculoskeletal: Yes: WNL Extremities: Yes: Other Wound/Incision: Yes: Dressing Removed, Other (wound looked at slough present) Neurological: Yes: Alert, Oriented Psychiatric: Yes: Alert, Oriented Labs: CBC, BMP 01/03/19 06:48 01/03/19 06:48 INR, PTT INR 1.01 (0.83-1.09) 12/30/18 13:57 Assessment/Plan 73 y/o F with PMH Lupus, lupus nephritis, 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 cellulitis Lupus PAD HTN HLD plan ct abx wound probably needs debridement podiatry team to see the patient
[2019-01-04] MEDS: POLYETHYLENE GLYCOL 3350 119 GM BTL PO SCH (10:02)
[2019-01-04] MEDS ORDERED: PT OWN MED DRAWER 7, Y5N ONE ×2 (10:09→20:32)
[2019-01-04] MEDS: HYDROXYCHLOROQUINE SO4 200 MG TABLET (FP) PO SCH (10:15)
[2019-01-04] MEDS: CHOLECALCIFEROL (VIT D3) 1,000 UNIT (25 MCG) TABLET PO SCH (10:15)
[2019-01-04] MEDS: MULTIVITAMINS (DAILY MVI) TABLET (FP) PO SCH (10:15)
[2019-01-04] MEDS: FERROUS SO4 325 MG TABLET (FP) PO SCH (10:15)
[2019-01-04] MEDS: VITAMIN B COMP W-C 1 EA TABLET PO SCH (10:15)
[2019-01-04] MEDS: ASPIRIN 81 MG CHEWABLE TABLETS PO SCH (10:15)
[2019-01-04] MEDS: HEPARIN NA (PORCINE) 5,000 UNITS/ML 1ML VIAL SQ SCH ×2 (10:15→22:03)
[2019-01-04] MEDS: NIFEdipine E.R 60 MG TABLET (UD) PO SCH ×2 (10:15→22:03)
[2019-01-04] MEDS: CALCIUM (OYSTER SHELL) 500 MG TABLET (FP) PO SCH (10:16)
[2019-01-04] MEDS: MAGNESIUM CL 64 MG TABLET.SA PO SCH (10:17)
[2019-01-04] MEDS: COLLAGENASE CLOSTRIDIUM HIST. 30 GRAMS TUBE TP SCH (10:19)
[2019-01-04] MEDS: PATIENT'S OWN MEDICATION (NON-FORMULARY) (Famotidine [Pepcid] 20 MG) PO SCH (10:27)
--- NOTE | 2019-01-04 17:22 | PN ---
Progress Note (short form) - Note Progress Note: fuv left foot. +cellulitis, +grade 2-3 wound left, +drainage, improved cellulitis cellulitis lupus ulceration Reviewed MRI results. No foreign body on xray. discussed with medicine and ID by Phone. Patient scheduled for OR 730am. Debridement of necrotic soft tissue left foot. Exploration of wound for foreign body. Continue Santyl to wound left foot. will follow. Optimize for OR. Cleared by vascular 12/31/18. Spoke to patient by phone as well and agrees to debridement.
--- NOTE | 2019-01-04 19:03 | PN ---
Physical Exam: SUBJECTIVE: Patient seen and examined OBJECTIVE: Vital Signs Period Temp Pulse Resp BP Sys/[place]idalgo Pulse Ox Last 24 Hr 97.8 F-98.3 F 70-77 16-20 130-149/58-79 98-98 GENERAL: The patient is awake, alert, and fully oriented, in no acute distress. HEAD: Normal with no signs of trauma. EYES: PERRL, extraocular movements intact, sclera anicteric, conjunctiva clear. No ptosis. ENT: Ears normal, nares patent, oropharynx clear without exudates, moist mucous membranes. NECK: Trachea midline, full range of motion, supple. LUNGS: Breath sounds equal, clear to auscultation bilaterally, no wheezes, no crackles, no accessory muscle use. HEART: Regular rate and rhythm, S1, S2 without murmur, rub or gallop. ABDOMEN: Soft, nontender, nondistended, normoactive bowel sounds, no guarding, no rebound, no hepatosplenomegaly, no masses. EXTREMITIES: 2+ pulses, warm, well-perfused, no edema. NEUROLOGICAL: Cranial nerves II through XII grossly intact. Normal speech, gait not observed. PSYCH: Normal mood, normal affect. SKIN: Warm, dry, normal turgor, no rashes or lesions noted Active Medications Generic Name Dose Route Start Last Admin Trade Name Gregorq PRN Reason Stop Dose Admin Acetaminophen 1,000 mg 01/02/19 09:41 01/03/19 23:33 Tylenol - PO 1,000 mg Q6H PRN Administration pain Aspirin 81 mg 12/31/18 10:00 01/04/19 10:15 Asa - PO 81 mg DAILY [facility] Administration Calcium Carbonate 1,000 mg 12/31/18 10:00 01/04/19 10:16 Os-Ryan 500mg - PO 1,000 mg DAILY [facility] Administration Cholecalciferol 1,000 unit 12/31/18 10:00 01/04/19 10:15 Vitamin D3 - PO 1,000 unit DAILY [facility] Administration Collagenase 1 applic 01/01/19 19:00 01/04/19 10:19 Santyl - TP 1 applic DAILY [facility] Administration Protocol Ferrous Sulfate 325 mg 12/31/18 10:00 01/04/19 10:15 Feosol - PO 325 mg DAILY [facility] Administration Gabapentin 600 mg 12/30/18 22:00 01/04/19 15:28 Neurontin - PO 600 mg TID [facility] Administration Heparin Sodium (Porcine) 5,000 unit 01/01/19 14:15 01/04/19 10:15 Heparin - SQ 5,000 unit BID [facility] Administration Hydroxychloroquine Sulfate 200 mg 12/31/18 10:00 01/04/19 10:15 Plaquenil - PO 200 mg DAILY [facility] Administration Aztreonam 1 gm/ Dextrose 50 mls @ 100 mls/hr 12/31/18 10:00 01/04/19 18:24 IVPB 100 mls/hr Q8H-IV [facility] Administration Protocol Labetalol HCl 200 mg 12/30/18 22:00 01/04/19 15:29 Normodyne - PO 200 mg TID [facility] Administration Magnesium Chloride 64 mg 12/31/18 10:00 01/04/19 10:17 Slow-Mag - PO 64 mg DAILY [facility] Administration Multivit/Ca Carb/B Cmplx/FA/Prenat 1 tablet 12/31/18 10:00 01/04/19 10:15 Nephro-Rebecca - PO 1 tablet DAILY [facility] Administration Multivitamins/Minerals/Vitamin C 1 tab 12/31/18 10:00 01/04/19 10:15 Tab-A-Vit - PO 1 tab DAILY [facility] Administration Nifedipine 60 mg 12/30/18 22:00 01/04/19 10:15 Procardia Xl - PO 60 mg BID [facility] Administration Polyethylene Glycol 17 gm 01/02/19 10:00 01/04/19 10:02 Miralax (For Daily Use) - PO Not Given DAILY [facility] Prednisone 5 mg/ Prednisone 2 7 mg 12/31/18 10:00 01/04/19 10:16 mg PO 7 mg DAILY [facility] Administration ASSESSMENT/PLAN: Patient with complex PMH presents with foot wound; history of prior BKA. Podiatry, vascular, ID following. Risks include prior BKA, prednisone use 2/2 lupus. Continue abx changing to PO prior to DC, immunosuppressants. Followup with surgical and specialty services; appreciate expert input in management of this patient. #Cellulitis, r/o osteomyelitis given chronicity of wound (To OR today; POD#1 debridement with n foreign body. Continue current abx; discuss with ID to change to PO prior to DC.) #Lupus with vasculitis, nephritis, neuropathy (on prednisone, plaquenil; continue. No complaints of flare. Continue gabapentin for neuropathy. Monitor renal function closely for ULICES given prior nephropathy. Consider potential for flare with uptrending ESR/CRP in the setting of stabilized infection) #PAD (S/P stenting; vascular eval noted. +pulses; extensive vascular disease LLE on arterial doppler) #HTN (Continue home labetalol, nifedipine) #HLD (FU OP FLP) #Fe defic (Continue home iron) Full Code Pending podiatry eval; discussed with ID and the concern is that patient may require debridement. Reaching out to podiatry to organize. Visit type - Emergency Visit Emergency Visit: No - New Patient This patient is new to me today: No - Critical Care Critical Care patient: No
[2019-01-04] MEDS: ACETAMINOPHEN 500 MG TABLET (FP) PO PRN (23:09)
[2019-01-05] MEDS: AZTREONAM 1 GM in DEXTROSE 5%-WATER - 50 ML IVPB SCH ×3 (01:38→17:20)
[2019-01-05] MEDS: GABAPENTIN 300 MG CAPSULE (FP) PO SCH ×3 (06:20→22:24)
[2019-01-05] MEDS: LABETALOL HCL 100 MG TABLET (FP) PO SCH ×3 (06:21→22:24)
[2019-01-05] MEDS: NIFEdipine E.R 60 MG TABLET (UD) PO SCH ×3 (06:22→22:24)
[2019-01-05] MEDS ORDERED: LIDOCAINE HCL 1%, 10 MG/ML (20ML VIAL) ONE (07:10)
[2019-01-05] MEDS ORDERED: BUPIVACAINE HCL/PF 0.5% (5 MG/ML) 30 ML VIAL IJ ONE ×2 (07:10→08:00)
[2019-01-05] MEDS ORDERED: ONDANSETRON 4 MG/2 ML VIAL IVPUSH PRN ×2 (07:16→08:35)
[2019-01-05] MEDS ORDERED: PROMETHAZINE HCL 25 MG/1 ML VIAL IVPB PRN ×2 (07:16→08:35)
[2019-01-05] MEDS ORDERED: PROPOFOL 20 ML ONE ×3 (07:20)
[2019-01-05] MEDS ORDERED: MIDAZOLAM HCL 2 MG/2 ML SINGLE DOSE VIAL ONE (07:20)
[2019-01-05] MEDS ORDERED: LACTATED RINGERS SOLUTION 1,000 ML IV SCH ×2 (07:30→08:35)
[2019-01-05 07:42] LABS: BLOOD UREA NITROGEN 20.3 mg/dL (7-18); CALCIUM 9.6 mg/dL (8.5-10.1); CREATININE 1.1 mg/dL (0.55-1.3); POTASSIUM 4.3 mmol/L (3.5-5.1)
[2019-01-05] MEDS ORDERED: LIDOCAINE HCL/PF 2% SDV 5ML VIAL ONE (07:48)
[2019-01-05] MEDS ORDERED: KETOROLAC TROMETHAMINE 30 MG/1 ML VIAL ONE (07:57)
[2019-01-05] MEDS ORDERED: LIDOCAINE HCL 1%, 10 MG/ML (20ML VIAL) INF ONE (08:00)
[2019-01-05] MEDS ORDERED: BACITRACIN 15 GM TUBE TOPICAL OINTMENT ONE (08:05)
[2019-01-05 08:11] LABS: HEMATOCRIT 31.3 % (32.4-45.2); MCH 25.1 pg (25.7-33.7); MCHC 31.8 g/dl (32.0-36.0); MEAN CELL VOLUME 79.1 fl (80-96); MEAN PLT VOLUME 8.5 fl (7.5-11.1); PLATELET COUNT 429 K/MM3 (134-434); RBC 3.96 M/mm3 (3.60-5.2); RDW 18.7 % (11.6-15.6); WHITE BLOOD COUNT 9.6 K/mm3 (4.0-10.0)
--- NOTE | 2019-01-05 08:29 | OP ---
Operative Note - Note: Operative Date: 01/05/19 Pre-Operative Diagnosis: Necrotic owund left foot possible foreign body Operation: Debridement of necrotic tissue. Explore wound for foreign body. Findings: Necrotic tissue. No evidence of foreign body. Post-Operative Diagnosis: Same as Pre-op Surgeon: Niki Daniels Senior Information Security Architect: Kendell Colindres Anesthesia: Local, MAC Specimens Removed: Necrotic tissue Estimated Blood Loss (mls): 5 Instrument used (Debridements only): Sharp scalpel 15 blade Operative Report Dictated: No
[2019-01-05] MEDS: COLLAGENASE CLOSTRIDIUM HIST. 30 GRAMS TUBE TP SCH (09:03)
[2019-01-05] MEDS ORDERED: PT OWN MED DRAWER 7, Y5N ONE (10:18)
[2019-01-05] MEDS: CHOLECALCIFEROL (VIT D3) 1,000 UNIT (25 MCG) TABLET PO SCH (10:21)
[2019-01-05] MEDS: ASPIRIN 81 MG CHEWABLE TABLETS PO SCH (10:21)
[2019-01-05] MEDS: VITAMIN B COMP W-C 1 EA TABLET PO SCH (10:21)
[2019-01-05] MEDS: HYDROXYCHLOROQUINE SO4 200 MG TABLET (FP) PO SCH (10:21)
[2019-01-05] MEDS: HEPARIN NA (PORCINE) 5,000 UNITS/ML 1ML VIAL SQ SCH ×2 (10:21→22:25)
[2019-01-05] MEDS: MULTIVITAMINS (DAILY MVI) TABLET (FP) PO SCH (10:21)
[2019-01-05] MEDS: FERROUS SO4 325 MG TABLET (FP) PO SCH (10:21)
[2019-01-05] MEDS: CALCIUM (OYSTER SHELL) 500 MG TABLET (FP) PO SCH (10:22)
[2019-01-05] MEDS: POLYETHYLENE GLYCOL 3350 119 GM BTL PO SCH (10:22)
[2019-01-05] MEDS: MAGNESIUM CL 64 MG TABLET.SA PO SCH (10:22)
--- NOTE | 2019-01-05 11:22 | PN ---
Progress Note, Physician History of Present Illness: post op patient doing well no complaints - Current Medication List Current Medications: Active Medications Acetaminophen (Tylenol -) 1,000 mg PO Q6H PRN PRN Reason: pain 1-3 Aspirin (Asa -) 81 mg PO DAILY [facility] Last Admin: 01/05/19 10:21 Dose: 81 mg Calcium Carbonate (Os-Ryan 500mg -) 1,000 mg PO DAILY [facility] Last Admin: 01/05/19 10:22 Dose: 1,000 mg Cholecalciferol (Vitamin D3 -) 1,000 unit PO DAILY [facility] Last Admin: 01/05/19 10:21 Dose: 1,000 unit Collagenase (Santyl -) 1 applic TP DAILY [facility]; Protocol Last Admin: 01/05/19 09:03 Dose: Not Given Ferrous Sulfate (Feosol -) 325 mg PO DAILY [facility] Last Admin: 01/05/19 10:21 Dose: 325 mg Gabapentin (Neurontin -) 600 mg PO TID [facility] Heparin Sodium (Porcine) (Heparin -) 5,000 unit SQ BID [facility] Last Admin: 01/05/19 10:21 Dose: 5,000 unit Hydroxychloroquine Sulfate (Plaquenil -) 200 mg PO DAILY [facility] Last Admin: 01/05/19 10:21 Dose: 200 mg Aztreonam 1 gm/ Dextrose 50 mls @ 100 mls/hr IVPB Q8H-IV [facility]; Protocol Last Admin: 01/05/19 11:15 Dose: 100 mls/hr Lactated Ringer's (Lactated Ringers Solution) 1,000 mls @ 125 mls/hr IV ASDIR [facility] Last Admin: 01/05/19 10:15 Dose: 125 mls/hr Labetalol HCl (Normodyne -) 200 mg PO TID [facility] Magnesium Chloride (Slow-Mag -) 64 mg PO DAILY [facility] Last Admin: 01/05/19 10:22 Dose: 64 mg Multivit/Ca Carb/B Cmplx/FA/Prenat (Nephro-Rebecca -) 1 tablet PO DAILY [facility] Last Admin: 01/05/19 10:21 Dose: 1 tablet Multivitamins/Minerals/Vitamin C (Tab-A-Vit -) 1 tab PO DAILY [facility] Last Admin: 01/05/19 10:21 Dose: 1 tab Nifedipine (Procardia Xl -) 60 mg PO BID [facility] Last Admin: 01/05/19 09:02 Dose: Not Given Ondansetron HCl (Zofran Injection) 4 mg IVPUSH Q6H PRN PRN Reason: NAUSEA AND/OR VOMITING Stop: 01/06/19 07:15 Polyethylene Glycol (Miralax (For Daily Use) -) 17 gm PO DAILY [facility] Last Admin: 01/05/19 10:22 Dose: Not Given Prednisone 5 mg/ Prednisone 2 (mg) 7 mg PO DAILY [facility] Last Admin: 01/05/19 10:22 Dose: 7 mg - Objective Vital Signs: Vital Signs Temperature 97.8 F 01/05/19 09:00 Pulse Rate 68 01/05/19 09:00 Respiratory Rate 18 01/05/19 09:00 Blood Pressure 139/48 L 01/05/19 09:00 O2 Sat by Pulse Oximetry (%) 98 01/05/19 09:00 Constitutional: Yes: No Distress, Calm Cardiovascular: Yes: S1, S2 Respiratory: Yes: Regular, CTA Bilaterally Gastrointestinal: Yes: Normal Bowel Sounds, Soft Musculoskeletal: Yes: Other Extremities: Yes: Other Wound/Incision: Yes: Dressing Dry and Intact Neurological: Yes: Alert, Oriented Psychiatric: Yes: Alert, Oriented Labs: CBC, BMP 01/05/19 06:10 01/05/19 06:10 INR, PTT INR 1.01 (0.83-1.09) 12/30/18 13:57 Assessment/Plan 73 y/o F with PMH Lupus, lupus nephritis, 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 cellulitis Lupus PAD HTN HLD plan await for all cx reports continue current mgmt wound care rest as per the team
--- NOTE | 2019-01-05 15:41 | PN ---
Physical Exam: SUBJECTIVE: Patient seen and examined; no new complaints. Stable. OR note reviewed. Discussed with consultants can send home on PO abx tomorrow if she remains stable. No foreign body seen operatively. OBJECTIVE: Vital Signs Period Temp Pulse Resp BP Sys/[place] Pulse Ox Last 24 Hr 97.6 F-98.1 F 63-82 16-20 115-156/42-80 98-100 GENERAL: The patient is awake, alert, and fully oriented, in no acute distress. HEAD: Normal with no signs of trauma. EYES: PERRL, extraocular movements intact, sclera anicteric, conjunctiva clear. No ptosis. ENT: Ears normal, nares patent, oropharynx clear without exudates, moist mucous membranes. NECK: Trachea midline, full range of motion, supple. LUNGS: Breath sounds equal, clear to auscultation bilaterally, no wheezes, no crackles, no accessory muscle use. HEART: Regular rate and rhythm, S1, S2 without murmur, rub or gallop. ABDOMEN: Soft, nontender, nondistended, normoactive bowel sounds, no guarding, no rebound, no hepatosplenomegaly, no masses. EXTREMITIES: 2+ pulses, warm, well-perfused, no edema. S/P BKA; affected side bandaged but no ascending cellulitic changes and neurovascuarly intact. NEUROLOGICAL: Cranial nerves II through XII grossly intact. Normal speech, gait not observed. PSYCH: Normal mood, normal affect. SKIN: Warm, dry, normal turgor, no rashes or lesions noted Laboratory Results - last 24 hr 01/05/19 01/05/19 06:10 06:10 WBC 9.6 RBC 3.96 Hgb 10.0 L Hct 31.3 L MCV 79.1 L MCH 25.1 L MCHC 31.8 L RDW 18.7 H Plt Count 429 MPV 8.5 Sodium 146 H Potassium 4.3 Chloride 108 H Carbon Dioxide 27 Anion Gap 12 BUN 20.3 H Creatinine 1.1 Est GFR (CKD-EPI)AfAm 58.09 Est GFR (CKD-EPI)NonAf 50.12 Random Glucose 76 Calcium 9.6 Active Medications Generic Name Dose Route Start Last Admin Trade Name Freq PRN Reason Stop Dose Admin Acetaminophen 1,000 mg 01/05/19 08:35 Tylenol - PO Q6H PRN pain 1-3 Aspirin 81 mg 01/05/19 10:00 01/05/19 10:21 Asa - PO 81 mg DAILY [facility] Administration Calcium Carbonate 1,000 mg 01/05/19 10:00 01/05/19 10:22 Os-Ryan 500mg - PO 1,000 mg DAILY [facility] Administration Cholecalciferol 1,000 unit 01/05/19 10:00 01/05/19 10:21 Vitamin D3 - PO 1,000 unit DAILY [facility] Administration Collagenase 1 applic 01/05/19 10:00 01/05/19 09:03 Santyl - TP Not Given DAILY [facility] Protocol Ferrous Sulfate 325 mg 01/05/19 10:00 01/05/19 10:21 Feosol - PO 325 mg DAILY [facility] Administration Gabapentin 600 mg 01/05/19 14:00 01/05/19 14:50 Neurontin - PO 600 mg TID [facility] Administration Heparin Sodium (Porcine) 5,000 unit 01/05/19 10:00 01/05/19 10:21 Heparin - SQ 5,000 unit BID [facility] Administration Hydroxychloroquine Sulfate 200 mg 01/05/19 10:00 01/05/19 10:21 Plaquenil - PO 200 mg DAILY [facility] Administration Aztreonam 1 gm/ Dextrose 50 mls @ 100 mls/hr 01/05/19 10:00 01/05/19 11:15 IVPB 100 mls/hr Q8H-IV [facility] Administration Protocol Lactated Ringer's 1,000 mls @ 125 mls/hr 01/05/19 08:35 01/05/19 10:15 Lactated Ringers Solution IV 125 mls/hr ASDIR [facility] Administration Labetalol HCl 200 mg 01/05/19 14:00 01/05/19 14:50 Normodyne - PO 200 mg TID [facility] Administration Magnesium Chloride 64 mg 01/05/19 10:00 01/05/19 10:22 Slow-Mag - PO 64 mg DAILY [facility] Administration Multivit/Ca Carb/B Cmplx/FA/Prenat 1 tablet 01/05/19 10:00 01/05/19 10:21 Nephro-Rebecca - PO 1 tablet DAILY [facility] Administration Multivitamins/Minerals/Vitamin C 1 tab 01/05/19 10:00 01/05/19 10:21 Tab-A-Vit - PO 1 tab DAILY [facility] Administration Nifedipine 60 mg 01/05/19 10:00 01/05/19 09:02 Procardia Xl - PO Not Given BID [facility] Ondansetron HCl 4 mg 01/05/19 08:35 Zofran Injection IVPUSH 01/06/19 07:15 Q6H PRN NAUSEA AND/OR VOMITING Polyethylene Glycol 17 gm 01/05/19 10:00 01/05/19 10:22 Miralax (For Daily Use) - PO Not Given DAILY [facility] Prednisone 5 mg/ Prednisone 2 7 mg 01/05/19 10:00 01/05/19 10:22 mg PO 7 mg DAILY [facility] Administration ASSESSMENT/PLAN: Patient with complex PMH presents with foot wound; history of prior BKA. Podiatry, vascular, ID following. Risks include prior BKA, prednisone use 2/2 lupus. Continue abx changing to PO prior to DC, immunosuppressants. Followup with surgical and specialty services; appreciate expert input in management of this patient. #Cellulitis, r/o osteomyelitis given chronicity of wound (To OR today; POD#1 debridement with n foreign body. Continue current abx; discuss with ID to change to PO prior to DC.) #Lupus with vasculitis, nephritis, neuropathy (on prednisone, plaquenil; continue. No complaints of flare. Continue gabapentin for neuropathy. Monitor renal function closely for ULICES given prior nephropathy. Consider potential for flare with uptrending ESR/CRP in the setting of stabilized infection) #PAD (S/P stenting; vascular eval noted. +pulses; extensive vascular disease LLE on arterial doppler) #HTN (Continue home labetalol, nifedipine) #HLD (FU OP FLP) #Fe defic (Continue home iron) Dispo: Home with abx tomorrow Will need followup with vascular, followup with podiatry, followup with ID. Full Code Visit type - Emergency Visit Emergency Visit: No - New Patient This patient is new to me today: No - Critical Care Critical Care patient: No
[2019-01-05] MEDS: ACETAMINOPHEN 500 MG TABLET (FP) PO PRN (22:25)
[2019-01-06] MEDS ORDERED: AZTREONAM 1 GM VIAL (RESTRICTED TO ID) ONE ×3 (02:05→18:36)
[2019-01-06] MEDS ORDERED: DEXTROSE 5%-WATER - 50 ML IVPB ONE ×3 (02:05→18:36)
[2019-01-06] MEDS: AZTREONAM 1 GM in DEXTROSE 5%-WATER - 50 ML IVPB SCH ×3 (02:32→18:45)
[2019-01-06] MEDS: LABETALOL HCL 100 MG TABLET (FP) PO SCH ×3 (07:09→22:35)
[2019-01-06] MEDS: GABAPENTIN 300 MG CAPSULE (FP) PO SCH ×3 (07:09→22:34)
[2019-01-06] MEDS ORDERED: PT OWN MED DRAWER 7, Y5N ONE ×2 (09:39→22:50)
[2019-01-06] MEDS: MULTIVITAMINS (DAILY MVI) TABLET (FP) PO SCH (09:43)
[2019-01-06] MEDS: VITAMIN B COMP W-C 1 EA TABLET PO SCH (09:43)
[2019-01-06] MEDS: HYDROXYCHLOROQUINE SO4 200 MG TABLET (FP) PO SCH (09:43)
[2019-01-06] MEDS: FERROUS SO4 325 MG TABLET (FP) PO SCH (09:43)
[2019-01-06] MEDS: ASPIRIN 81 MG CHEWABLE TABLETS PO SCH (09:44)
[2019-01-06] MEDS: CALCIUM (OYSTER SHELL) 500 MG TABLET (FP) PO SCH (09:44)
[2019-01-06] MEDS: NIFEdipine E.R 60 MG TABLET (UD) PO SCH ×2 (09:44→22:35)
[2019-01-06] MEDS: CHOLECALCIFEROL (VIT D3) 1,000 UNIT (25 MCG) TABLET PO SCH (09:44)
[2019-01-06] MEDS: HEPARIN NA (PORCINE) 5,000 UNITS/ML 1ML VIAL SQ SCH ×2 (09:45→22:34)
[2019-01-06] MEDS: COLLAGENASE CLOSTRIDIUM HIST. 30 GRAMS TUBE TP SCH ×2 (09:46→12:35)
[2019-01-06] MEDS: MAGNESIUM CL 64 MG TABLET.SA PO SCH (09:46)
[2019-01-06] MEDS: ACETAMINOPHEN 500 MG TABLET (FP) PO PRN ×2 (09:46→22:35)
[2019-01-06] MEDS: POLYETHYLENE GLYCOL 3350 119 GM BTL PO SCH (09:47)
--- NOTE | 2019-01-06 11:19 | PN ---
Progress Note, Physician History of Present Illness: stable no new issues - Current Medication List Current Medications: Active Medications Acetaminophen (Tylenol -) 1,000 mg PO Q6H PRN PRN Reason: pain 1-3 Last Admin: 01/06/19 09:46 Dose: 1,000 mg Aspirin (Asa -) 81 mg PO DAILY [facility] Last Admin: 01/06/19 09:44 Dose: 81 mg Calcium Carbonate (Os-Ryan 500mg -) 1,000 mg PO DAILY [facility] Last Admin: 01/06/19 09:44 Dose: 1,000 mg Cholecalciferol (Vitamin D3 -) 1,000 unit PO DAILY [facility] Last Admin: 01/06/19 09:44 Dose: 1,000 unit Collagenase (Santyl -) 1 applic TP DAILY [facility]; Protocol Last Admin: 01/06/19 09:46 Dose: Not Given Ferrous Sulfate (Feosol -) 325 mg PO DAILY [facility] Last Admin: 01/06/19 09:43 Dose: 325 mg Gabapentin (Neurontin -) 600 mg PO TID [facility] Last Admin: 01/06/19 07:09 Dose: 600 mg Heparin Sodium (Porcine) (Heparin -) 5,000 unit SQ BID [facility] Last Admin: 01/06/19 09:45 Dose: 5,000 unit Hydroxychloroquine Sulfate (Plaquenil -) 200 mg PO DAILY [facility] Last Admin: 01/06/19 09:43 Dose: 200 mg Aztreonam 1 gm/ Dextrose 50 mls @ 100 mls/hr IVPB Q8H-IV [facility]; Protocol Last Admin: 01/06/19 09:44 Dose: 100 mls/hr Labetalol HCl (Normodyne -) 200 mg PO TID [facility] Last Admin: 01/06/19 07:09 Dose: 200 mg Magnesium Chloride (Slow-Mag -) 64 mg PO DAILY [facility] Last Admin: 01/06/19 09:46 Dose: 64 mg Multivit/Ca Carb/B Cmplx/FA/Prenat (Nephro-Rebecca -) 1 tablet PO DAILY [facility] Last Admin: 01/06/19 09:43 Dose: 1 tablet Multivitamins/Minerals/Vitamin C (Tab-A-Vit -) 1 tab PO DAILY [facility] Last Admin: 01/06/19 09:43 Dose: 1 tab Nifedipine (Procardia Xl -) 60 mg PO BID [facility] Last Admin: 01/06/19 09:44 Dose: 60 mg Polyethylene Glycol (Miralax (For Daily Use) -) 17 gm PO DAILY [facility] Last Admin: 01/06/19 09:47 Dose: Not Given Prednisone 5 mg/ Prednisone 2 (mg) 7 mg PO DAILY [facility] Last Admin: 01/06/19 09:44 Dose: 7 mg - Objective Vital Signs: Vital Signs Temperature 97.6 F 01/06/19 06:00 Pulse Rate 71 01/06/19 06:00 Respiratory Rate 20 01/06/19 06:00 Blood Pressure 142/57 L 01/06/19 06:00 O2 Sat by Pulse Oximetry (%) 100 01/05/19 09:00 Constitutional: Yes: No Distress, Calm Cardiovascular: Yes: S1, S2 Respiratory: Yes: Regular, CTA Bilaterally Gastrointestinal: Yes: Normal Bowel Sounds, Soft Musculoskeletal: Yes: WNL Extremities: Yes: Other Wound/Incision: Yes: Dressing Dry and Intact Neurological: Yes: Alert, Oriented Psychiatric: Yes: Alert, Oriented Labs: CBC, BMP 01/05/19 06:10 01/05/19 06:10 INR, PTT INR 1.01 (0.83-1.09) 12/30/18 13:57 Assessment/Plan 73 y/o F with PMH Lupus, lupus nephritis, 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 cellulitis Lupus PAD HTN HLD plan ct abx awaiting cx reports
--- NOTE | 2019-01-06 12:33 | PN ---
Progress Note (short form) - Note Progress Note: fuv left foot. No pain. POD 1 +improved cellulitis, +granulating wound improved cellulitis lupus ulceration Dressing change done with Adrienne. PTR to wound care upon DC. Change daily. Abx as per ID. Will follow till dc.
--- NOTE | 2019-01-06 18:26 | PN ---
Progress Note, Physician Chief Complaint: Mild pain to operative foot - Current Medication List Current Medications: Active Medications Acetaminophen (Tylenol -) 1,000 mg PO Q6H PRN PRN Reason: pain 1-3 Last Admin: 01/06/19 09:46 Dose: 1,000 mg Aspirin (Asa -) 81 mg PO DAILY [facility] Last Admin: 01/06/19 09:44 Dose: 81 mg Calcium Carbonate (Os-Ryan 500mg -) 1,000 mg PO DAILY [facility] Last Admin: 01/06/19 09:44 Dose: 1,000 mg Cholecalciferol (Vitamin D3 -) 1,000 unit PO DAILY [facility] Last Admin: 01/06/19 09:44 Dose: 1,000 unit Collagenase (Santyl -) 1 applic TP DAILY [facility]; Protocol Last Admin: 01/06/19 12:35 Dose: 1 applic Ferrous Sulfate (Feosol -) 325 mg PO DAILY [facility] Last Admin: 01/06/19 09:43 Dose: 325 mg Gabapentin (Neurontin -) 600 mg PO TID [facility] Last Admin: 01/06/19 15:02 Dose: 600 mg Heparin Sodium (Porcine) (Heparin -) 5,000 unit SQ BID [facility] Last Admin: 01/06/19 09:45 Dose: 5,000 unit Hydroxychloroquine Sulfate (Plaquenil -) 200 mg PO DAILY [facility] Last Admin: 01/06/19 09:43 Dose: 200 mg Aztreonam 1 gm/ Dextrose 50 mls @ 100 mls/hr IVPB Q8H-IV [facility]; Protocol Last Admin: 01/06/19 09:44 Dose: 100 mls/hr Labetalol HCl (Normodyne -) 200 mg PO TID [facility] Last Admin: 01/06/19 15:02 Dose: 200 mg Magnesium Chloride (Slow-Mag -) 64 mg PO DAILY [facility] Last Admin: 01/06/19 09:46 Dose: 64 mg Multivit/Ca Carb/B Cmplx/FA/Prenat (Nephro-Rebecca -) 1 tablet PO DAILY [facility] Last Admin: 01/06/19 09:43 Dose: 1 tablet Multivitamins/Minerals/Vitamin C (Tab-A-Vit -) 1 tab PO DAILY [facility] Last Admin: 01/06/19 09:43 Dose: 1 tab Nifedipine (Procardia Xl -) 60 mg PO BID [facility] Last Admin: 01/06/19 09:44 Dose: 60 mg Polyethylene Glycol (Miralax (For Daily Use) -) 17 gm PO DAILY [facility] Last Admin: 01/06/19 09:47 Dose: Not Given Prednisone 5 mg/ Prednisone 2 (mg) 7 mg PO DAILY [facility] Last Admin: 01/06/19 09:44 Dose: 7 mg - Objective Vital Signs: Vital Signs Temperature 98.1 F 01/06/19 17:04 Pulse Rate 79 01/06/19 17:04 Respiratory Rate 20 01/06/19 17:04 Blood Pressure 153/67 01/06/19 17:04 O2 Sat by Pulse Oximetry (%) 97 01/06/19 09:00 Constitutional: Yes: Well Nourished, No Distress, Calm Eyes: Yes: WNL, Conjunctiva Clear, EOM Intact HENT: Yes: WNL, Atraumatic, Normocephalic Neck: Yes: WNL, Supple, Trachea Midline Cardiovascular: Yes: WNL, Regular Rate and Rhythm Respiratory: Yes: WNL, Regular, CTA Bilaterally Gastrointestinal: Yes: WNL, Normal Bowel Sounds, Soft ...Rectal Exam: Yes: Deferred Genitourinary: Yes: WNL Breast(s): Yes: WNL Musculoskeletal: Yes: WNL Extremities: Yes: Amputation (right BKA) Edema: No Peripheral Pulses WNL: No Integumentary: Yes: WNL Wound/Incision: Yes: Clean/Dry, Well Approximated, Dressing Dry and Intact Neurological: Yes: WNL, Alert, Oriented ...Motor Strength: LUE (WNL), LLE, RUE, RLE (decreased) Psychiatric: Yes: WNL, Alert, Oriented Labs: CBC, BMP 01/05/19 06:10 01/05/19 06:10 INR, PTT INR 1.01 (0.83-1.09) 12/30/18 13:57 Problem List - Problems (1) Left foot infection Assessment/Plan: POD #1 from left foot wound debridement Dressing C/D/I wound care as per surgery c/w abx F/U WOUND CX, PRELIM NGTD Code(s): L08.9 - LOCAL INFECTION OF THE SKIN AND SUBCUTANEOUS TISSUE, UNSP (2) PVD (peripheral vascular disease) Assessment/Plan: S/P stenting; appreciate vascular following +pulses; extensive vascular disease LLE on arterial doppler) Code(s): I73.9 - PERIPHERAL VASCULAR DISEASE, UNSPECIFIED (3) Amputated right leg Code(s): Z89.611 - ACQUIRED ABSENCE OF RIGHT LEG ABOVE KNEE (4) HTN (hypertension) Assessment/Plan: c/w home meds, labetolol, procardia Code(s): I10 - ESSENTIAL (PRIMARY) HYPERTENSION (5) Lupus (systemic lupus erythematosus) Assessment/Plan: c/w prednisone, plaquenil Code(s): M32.9 - SYSTEMIC LUPUS ERYTHEMATOSUS, UNSPECIFIED Visit type - Emergency Visit Emergency Visit: Yes ED Registration Date: 12/30/18 Care time: The patient presented to the Emergency Department on the above date and was hospitalized for further evaluation of their emergent condition. - New Patient This patient is new to me today: Yes Date on this admission: 01/06/19 - Critical Care Critical Care patient: No - Discharge Referral Referred to [facility] No
[2019-01-07] MEDS ORDERED: DEXTROSE 5%-WATER - 50 ML IVPB ONE ×2 (01:30→09:36)
[2019-01-07] MEDS ORDERED: AZTREONAM 1 GM VIAL (RESTRICTED TO ID) ONE ×2 (01:30→09:36)
[2019-01-07] MEDS: AZTREONAM 1 GM in DEXTROSE 5%-WATER - 50 ML IVPB SCH ×2 (02:26→09:49)
[2019-01-07] MEDS: LABETALOL HCL 100 MG TABLET (FP) PO SCH (06:15)
[2019-01-07] MEDS: GABAPENTIN 300 MG CAPSULE (FP) PO SCH (06:15)
[2019-01-07 06:30] VITALS: TEMP 97.5
--- NOTE | 2019-01-07 08:11 | PN ---
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 Pt states she was recently at [facility] for similar. She had an MRI there, which did not show OM. She has had several treatments of ABx for similar problem recently and has been seen inpt and outpt by podiatry. As an outpt, she was given an orthopedic shoe, which she states was rubbing on her foot and caused the ulcer. She has seen the tumbler tender, tried foot baths, creams, ointments, and po antibiotics, all of which have not resolved the issue. Denies fever, chills, n/v/d, sob, cp. - Current Medication List Current Medications: Active Medications Acetaminophen (Tylenol -) 1,000 mg PO Q6H PRN PRN Reason: pain 1-3 Last Admin: 01/06/19 22:35 Dose: 1,000 mg Aspirin (Asa -) 81 mg PO DAILY [facility] Last Admin: 01/06/19 09:44 Dose: 81 mg Calcium Carbonate (Os-Ryan 500mg -) 1,000 mg PO DAILY [facility] Last Admin: 01/06/19 09:44 Dose: 1,000 mg Cholecalciferol (Vitamin D3 -) 1,000 unit PO DAILY [facility] Last Admin: 01/06/19 09:44 Dose: 1,000 unit Collagenase (Santyl -) 1 applic TP DAILY [facility]; Protocol Last Admin: 01/06/19 12:35 Dose: 1 applic Ferrous Sulfate (Feosol -) 325 mg PO DAILY [facility] Last Admin: 01/06/19 09:43 Dose: 325 mg Gabapentin (Neurontin -) 600 mg PO TID [facility] Last Admin: 01/07/19 06:15 Dose: 600 mg Heparin Sodium (Porcine) (Heparin -) 5,000 unit SQ BID [facility] Last Admin: 01/06/19 22:34 Dose: 5,000 unit Hydroxychloroquine Sulfate (Plaquenil -) 200 mg PO DAILY [facility] Last Admin: 01/06/19 09:43 Dose: 200 mg Aztreonam 1 gm/ Dextrose 50 mls @ 100 mls/hr IVPB Q8H-IV [facility]; Protocol Last Admin: 01/07/19 02:26 Dose: 100 mls/hr Labetalol HCl (Normodyne -) 200 mg PO TID [facility] Last Admin: 01/07/19 06:15 Dose: 200 mg Magnesium Chloride (Slow-Mag -) 64 mg PO DAILY [facility] Last Admin: 01/06/19 09:46 Dose: 64 mg Multivit/Ca Carb/B Cmplx/FA/Prenat (Nephro-Rebecca -) 1 tablet PO DAILY [facility] Last Admin: 01/06/19 09:43 Dose: 1 tablet Multivitamins/Minerals/Vitamin C (Tab-A-Vit -) 1 tab PO DAILY [facility] Last Admin: 01/06/19 09:43 Dose: 1 tab Nifedipine (Procardia Xl -) 60 mg PO BID [facility] Last Admin: 01/06/19 22:35 Dose: 60 mg Polyethylene Glycol (Miralax (For Daily Use) -) 17 gm PO DAILY [facility] Last Admin: 01/06/19 09:47 Dose: Not Given Prednisone 5 mg/ Prednisone 2 (mg) 7 mg PO DAILY [facility] Last Admin: 01/06/19 09:44 Dose: 7 mg - Objective Vital Signs: Vital Signs Temperature 97.5 F L 01/07/19 06:29 Pulse Rate 72 01/07/19 06:29 Respiratory Rate 20 01/07/19 06:29 Blood Pressure 139/53 L 01/07/19 06:29 O2 Sat by Pulse Oximetry (%) 97 01/06/19 09:00 Labs: CBC, BMP 01/05/19 06:10 01/05/19 06:10 INR, PTT INR 1.01 (0.83-1.09) 12/30/18 13:57 Problem List - Problems (1) Left foot infection Code(s): L08.9 - LOCAL INFECTION OF THE SKIN AND SUBCUTANEOUS TISSUE, UNSP (2) PVD (peripheral vascular disease) Code(s): I73.9 - PERIPHERAL VASCULAR DISEASE, UNSPECIFIED (3) Amputated right leg Code(s): Z89.611 - ACQUIRED ABSENCE OF RIGHT LEG ABOVE KNEE (4) HTN (hypertension) Code(s): I10 - ESSENTIAL (PRIMARY) HYPERTENSION (5) Lupus (systemic lupus erythematosus) Code(s): M32.9 - SYSTEMIC LUPUS ERYTHEMATOSUS, UNSPECIFIED
[2019-01-07] MEDS ORDERED: PT OWN MED DRAWER 7, Y5N ONE (09:37)
[2019-01-07 09:48] VITALS: BP 151/69; PULSE 75
[2019-01-07] MEDS: HYDROXYCHLOROQUINE SO4 200 MG TABLET (FP) PO SCH (09:48)
[2019-01-07] MEDS: FERROUS SO4 325 MG TABLET (FP) PO SCH (09:48)
[2019-01-07] MEDS: ASPIRIN 81 MG CHEWABLE TABLETS PO SCH (09:48)
[2019-01-07] MEDS: CHOLECALCIFEROL (VIT D3) 1,000 UNIT (25 MCG) TABLET PO SCH (09:48)
[2019-01-07] MEDS: MULTIVITAMINS (DAILY MVI) TABLET (FP) PO SCH (09:48)
[2019-01-07] MEDS: VITAMIN B COMP W-C 1 EA TABLET PO SCH (09:48)
[2019-01-07] MEDS: HEPARIN NA (PORCINE) 5,000 UNITS/ML 1ML VIAL SQ SCH (09:48)
[2019-01-07] MEDS: MAGNESIUM CL 64 MG TABLET.SA PO SCH (09:49)
[2019-01-07] MEDS: NIFEdipine E.R 60 MG TABLET (UD) PO SCH (09:49)
[2019-01-07] MEDS: CALCIUM (OYSTER SHELL) 500 MG TABLET (FP) PO SCH (09:50)
[2019-01-07] MEDS: POLYETHYLENE GLYCOL 3350 119 GM BTL PO SCH (09:50)
[2019-01-07] MEDS: COLLAGENASE CLOSTRIDIUM HIST. 30 GRAMS TUBE TP SCH (09:50)
--- NOTE | 2019-01-07 10:22 | PN ---
Progress Note, Physician History of Present Illness: stable doing well cx result noted - Current Medication List Current Medications: Active Medications Acetaminophen (Tylenol -) 1,000 mg PO Q6H PRN PRN Reason: pain 1-3 Last Admin: 01/06/19 22:35 Dose: 1,000 mg Aspirin (Asa -) 81 mg PO DAILY [facility] Last Admin: 01/07/19 09:48 Dose: 81 mg Calcium Carbonate (Os-Ryan 500mg -) 1,000 mg PO DAILY [facility] Last Admin: 01/07/19 09:50 Dose: 1,000 mg Cholecalciferol (Vitamin D3 -) 1,000 unit PO DAILY [facility] Last Admin: 01/07/19 09:48 Dose: 1,000 unit Collagenase (Santyl -) 1 applic TP DAILY [facility]; Protocol Last Admin: 01/07/19 09:50 Dose: Not Given Ferrous Sulfate (Feosol -) 325 mg PO DAILY [facility] Last Admin: 01/07/19 09:48 Dose: 325 mg Gabapentin (Neurontin -) 600 mg PO TID [facility] Last Admin: 01/07/19 06:15 Dose: 600 mg Heparin Sodium (Porcine) (Heparin -) 5,000 unit SQ BID [facility] Last Admin: 01/07/19 09:48 Dose: 5,000 unit Hydroxychloroquine Sulfate (Plaquenil -) 200 mg PO DAILY [facility] Last Admin: 01/07/19 09:48 Dose: 200 mg Aztreonam 1 gm/ Dextrose 50 mls @ 100 mls/hr IVPB Q8H-IV [facility]; Protocol Last Admin: 01/07/19 09:49 Dose: 100 mls/hr Labetalol HCl (Normodyne -) 200 mg PO TID [facility] Last Admin: 01/07/19 06:15 Dose: 200 mg Magnesium Chloride (Slow-Mag -) 64 mg PO DAILY [facility] Last Admin: 01/07/19 09:49 Dose: 64 mg Multivit/Ca Carb/B Cmplx/FA/Prenat (Nephro-Rebecca -) 1 tablet PO DAILY [facility] Last Admin: 01/07/19 09:48 Dose: 1 tablet Multivitamins/Minerals/Vitamin C (Tab-A-Vit -) 1 tab PO DAILY [facility] Last Admin: 01/07/19 09:48 Dose: 1 tab Nifedipine (Procardia Xl -) 60 mg PO BID [facility] Last Admin: 01/07/19 09:49 Dose: 60 mg Polyethylene Glycol (Miralax (For Daily Use) -) 17 gm PO DAILY [facility] Last Admin: 01/07/19 09:50 Dose: Not Given Prednisone 5 mg/ Prednisone 2 (mg) 7 mg PO DAILY [facility] Last Admin: 01/07/19 09:49 Dose: 7 mg - Objective Vital Signs: Vital Signs Temperature 97.5 F L 01/07/19 09:47 Pulse Rate 75 01/07/19 09:47 Respiratory Rate 18 01/07/19 09:47 Blood Pressure 151/69 01/07/19 09:47 O2 Sat by Pulse Oximetry (%) 97 01/06/19 09:00 Constitutional: Yes: No Distress, Calm Cardiovascular: Yes: S1, S2 Respiratory: Yes: Regular, CTA Bilaterally Gastrointestinal: Yes: Normal Bowel Sounds, Soft Musculoskeletal: Yes: WNL Extremities: Yes: Other Integumentary: Yes: Other Wound/Incision: Yes: Dressing Dry and Intact Neurological: Yes: Alert, Oriented Psychiatric: Yes: Alert, Oriented Labs: CBC, BMP 01/05/19 06:10 01/05/19 06:10 INR, PTT INR 1.01 (0.83-1.09) 12/30/18 13:57 Assessment/Plan 73 y/o F with PMH Lupus, lupus nephritis, 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 cellulitis Lupus PAD HTN HLD cx result noted patient can be switched to clinda 300 mg every 8 hourly for 5 more days
[2019-01-07] MEDS ORDERED: PANTOPRAZOLE 40 MG TABLET (FP) PO ONE (11:16)
--- NOTE | 2019-01-07 11:30 | DS ---
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 Pt states she was recently at [facility] for similar. She had an MRI there, which did not show OM. She has had several treatments of ABx for similar problem recently and has been seen inpt and outpt by podiatry. As an outpt, she was given an orthopedic shoe, which she states was rubbing on her foot and caused the ulcer. She has seen the yard attendant, tried foot baths, creams, ointments, and po antibiotics, all of which have not resolved the issue. Denies fever, chills, n/v/d, sob, cp. OBJECTIVE: Vital Signs Period Temp Pulse Resp BP Sys/[place] Pulse Ox Last 24 Hr 97.5 F-98.3 F 70-79 18-20 139-160/53-71 Progress Note, Physician Chief Complaint: Mild pain to operative foot - Current Medication List Current Medications: Active Medications Acetaminophen (Tylenol -) 1,000 mg PO Q6H PRN PRN Reason: pain 1-3 Last Admin: 01/06/19 09:46 Dose: 1,000 mg Aspirin (Asa -) 81 mg PO DAILY [facility] Last Admin: 01/06/19 09:44 Dose: 81 mg Calcium Carbonate (Os-Ryan 500mg -) 1,000 mg PO DAILY [facility] Last Admin: 01/06/19 09:44 Dose: 1,000 mg Cholecalciferol (Vitamin D3 -) 1,000 unit PO DAILY [facility] Last Admin: 01/06/19 09:44 Dose: 1,000 unit Collagenase (Santyl -) 1 applic TP DAILY [facility]; Protocol Last Admin: 01/06/19 12:35 Dose: 1 applic Ferrous Sulfate (Feosol -) 325 mg PO DAILY [facility] Last Admin: 01/06/19 09:43 Dose: 325 mg Gabapentin (Neurontin -) 600 mg PO TID [facility] Last Admin: 01/06/19 15:02 Dose: 600 mg Heparin Sodium (Porcine) (Heparin -) 5,000 unit SQ BID [facility] Last Admin: 01/06/19 09:45 Dose: 5,000 unit Hydroxychloroquine Sulfate (Plaquenil -) 200 mg PO DAILY [facility] Last Admin: 01/06/19 09:43 Dose: 200 mg Aztreonam 1 gm/ Dextrose 50 mls @ 100 mls/hr IVPB Q8H-IV [facility]; Protocol Last Admin: 01/06/19 09:44 Dose: 100 mls/hr Labetalol HCl (Normodyne -) 200 mg PO TID [facility] Last Admin: 01/06/19 15:02 Dose: 200 mg Magnesium Chloride (Slow-Mag -) 64 mg PO DAILY [facility] Last Admin: 01/06/19 09:46 Dose: 64 mg Multivit/Ca Carb/B Cmplx/FA/Prenat (Nephro-Rebecca -) 1 tablet PO DAILY [facility] Last Admin: 01/06/19 09:43 Dose: 1 tablet Multivitamins/Minerals/Vitamin C (Tab-A-Vit -) 1 tab PO DAILY [facility] Last Admin: 01/06/19 09:43 Dose: 1 tab Nifedipine (Procardia Xl -) 60 mg PO BID [facility] Last Admin: 01/06/19 09:44 Dose: 60 mg Polyethylene Glycol (Miralax (For Daily Use) -) 17 gm PO DAILY [facility] Last Admin: 01/06/19 09:47 Dose: Not Given Prednisone 5 mg/ Prednisone 2 (mg) 7 mg PO DAILY [facility] Last Admin: 01/06/19 09:44 Dose: 7 mg - Objective Vital Signs: Vital Signs Temperature 98.1 F 01/06/19 17:04 Pulse Rate 79 01/06/19 17:04 Respiratory Rate 20 01/06/19 17:04 Blood Pressure 153/67 01/06/19 17:04 O2 Sat by Pulse Oximetry (%) 97 01/06/19 09:00 Constitutional: Yes: Well Nourished, No Distress, Calm Eyes: Yes: WNL, Conjunctiva Clear, EOM Intact HENT: Yes: WNL, Atraumatic, Normocephalic Neck: Yes: WNL, Supple, Trachea Midline Cardiovascular: Yes: WNL, Regular Rate and Rhythm Respiratory: Yes: WNL, Regular, CTA Bilaterally Gastrointestinal: Yes: WNL, Normal Bowel Sounds, Soft ...Rectal Exam: Yes: Deferred Genitourinary: Yes: WNL Breast(s): Yes: WNL Musculoskeletal: Yes: WNL Extremities: Yes: Amputation (right BKA) Edema: No Peripheral Pulses WNL: No Integumentary: Yes: WNL Wound/Incision: Yes: Clean/Dry, Well Approximated, Dressing Dry and Intact Neurological: Yes: WNL, Alert, Oriented ...Motor Strength: LUE (WNL), LLE, RUE, RLE (decreased) Psychiatric: Yes: WNL, Alert, Oriented Labs: CBC, BMP 01/05/19 06:10 01/05/19 06:10 INR, PTT INR 1.01 (0.83-1.09) 12/30/18 13:57 HOSPITAL COURSE: Date of Admission:12/30/18 Date of Discharge: 01/07/19 Patient was admitted with left foot infection . Started on IV antibiotics. Followed by podiatry and vascular. Seen by surgery and decision was made to have an debridement done in the OR. Wound derided on 01/05 with foreign body exploration. Cultures were sent and NGTD and no foreign body was seen. Antiobiotics change to oral 01/07 and medcially stable for discharge home with follow up with surgery and podiatry. Problem List - Problems (1) Left foot infection Assessment/Plan: POD #2 from left foot wound debridement Dressing C/D/I wound care as per surgery. To follow with Dr Blackman in 1 week Wound culture PRELIM NGTD (2) PVD (peripheral vascular disease) Assessment/Plan: S/P stenting; +pulses; extensive vascular disease LLE on arterial doppler) (3) Amputated right leg Code(s): Z89.611 - ACQUIRED ABSENCE OF RIGHT LEG ABOVE KNEE (4) HTN (hypertension) Assessment/Plan: c/w home meds, labetolol, procardia on discharge (5) Lupus (systemic lupus erythematosus) Assessment/Plan: c/w prednisone, plaquenil on discharge Minutes to complete discharge: 35 Discharge Summary Reason For Visit: INFECTION LEFT FOOT Current Active Problems Wound infection (Acute) Hospital Course: HOSPITAL COURSE: Date of Admission:12/30/18 Date of Discharge: 01/07/19 Patient was admitted with left foot infection . Started on IV antibiotics. Followed by podiatry and vascular. Seen by surgery and decision was made to have an debridement done in the OR. Wound derided on 01/05 with foreign body exploration. Cultures were sent and NGTD and no foreign body was seen. Antiobiotics change to oral 01/07 and medcially stable for discharge home with follow up with surgery and podiatry. Problem List - Problems (1) Left foot infection Assessment/Plan: POD #2 from left foot wound debridement Dressing C/D/I wound care as per surgery. To follow with Dr Blackman in 1 week Wound culture PRELIM NGTD (2) PVD (peripheral vascular disease) Assessment/Plan: S/P stenting; +pulses; extensive vascular disease LLE on arterial doppler) (3) Amputated right leg Code(s): Z89.611 - ACQUIRED ABSENCE OF RIGHT LEG ABOVE KNEE (4) HTN (hypertension) Assessment/Plan: c/w home meds, labetolol, procardia on discharge (5) Lupus (systemic lupus erythematosus) Assessment/Plan: c/w prednisone, plaquenil on discharge Condition: Stable - Instructions Referrals: Maggie Cervantes MD [Staff Physician] - 1 Week Yaya Montoya MD [Staff Physician] - 01/08/19 Tiago Magallon DO [Staff Physician] - 1 Week Isaak Mead MD [Staff Physician] - 1 Week Niki Daniels DPM [Staff Physician] - 1 Week Disposition: HOME - Home Medications Comprehensive Discharge Medication List: Ambulatory Orders Hydroxychloroquine Sulfate [Plaquenil] 200 mg PO DAILY 10/20/15 Nifedipine [Procardia Xl] 60 mg PO BID 10/20/15 predniSONE [Deltasone -] 7 mg PO DAILY 10/20/15 Iron,Carbonyl [Feosol] 65 mg PO DAILY 11/20/15 Vitamin B Complex [B Complex # 1] 1 each PO DAILY 11/20/15 Labetalol HCl 200 mg PO TID 07/22/17 Calcium Carbonate [Calcium] 1,000 mg PO DAILY 05/17/18 Famotidine [Pepcid] 20 mg PO DAILY 05/17/18 Gabapentin [Neurontin -] 600 mg PO TID 05/17/18 Magnesium Chloride [Slow-Mag -] 64 mg PO DAILY 05/17/18 Multivit-Min36/Iron/Folic Acid [Geritol Complete Tablet] 1 each PO DAILY Aspirin [ASA -] 81 mg PO DAILY tab.chew 06/01/18 Cholecalciferol (Vitamin D3) [Vitamin D3 -] 1,000 units PO DAILY 09/17/18 Acetaminophen [Tylenol .Extra-Strength -] 1,000 mg PO Q6H PRN tablet 01/07/19 Clindamycin [Cleocin -] 300 mg PO TID #15 capsule 01/07/19 Collagenase Clostridium Hist. [Santyl -] 1 applic TP DAILY tube 01/07/19 Multivitamins [Multivit ([facility] Formulary)] 1 tab PO DAILY tab 01/07/19 Polyethylene Glycol 3350 [Miralax 119 gm Btl -] 17 gm PO DAILY bottle 01/07/19 predniSONE [Deltasone -] 7 mg PO DAILY tablet 01/07/19 predniSONE [Deltasone -] 7 mg PO DAILY tablet 01/07/19 Problem List - Problems (1) Left foot infection Code(s): L08.9 - LOCAL INFECTION OF THE SKIN AND SUBCUTANEOUS TISSUE, UNSP (2) PVD (peripheral vascular disease) Code(s): I73.9 - PERIPHERAL VASCULAR DISEASE, UNSPECIFIED (3) Amputated right leg Code(s): Z89.611 - ACQUIRED ABSENCE OF RIGHT LEG ABOVE KNEE (4) HTN (hypertension) Code(s): I10 - ESSENTIAL (PRIMARY) HYPERTENSION (5) Lupus (systemic lupus erythematosus) Code(s): M32.9 - SYSTEMIC LUPUS ERYTHEMATOSUS, UNSPECIFIED This patient is new to me today: No Emergency Visit: Yes ED Registration Date: 12/30/18 Care time: The patient presented to the Emergency Department on the above date and was hospitalized for further evaluation of their emergent condition. Critical Care patient: No - Discharge Referral Referred to [facility] Med P.C.: No
--- NOTE | 2019-01-07 11:36 | PATH ---
Surgical Pathology Report Patient Name: OLEG PERERA Med. Rec. #: [id number] /Age/Gender: 1945 (Age: 73) / F Account: [id number] Location: [facility] MED/SURG Taken: 01/05/2019 Received: 01/05/2019 Reported: 01/07/2019 Physicians: Niki Daniels DPM Specimen(s) Received NECROTIC SOFT TISSUE LEFT FOOT Clinical History Infected left foot Final Diagnosis NECROTIC SOFT TISSUE, LEFT FOOT, DEBRIDEMENT: SKIN AND FIBROUS TISSUE SHOWING SEVERE ACUTE AND CHRONIC INFLAMMATION WITH ABSCESS FORMATION. Electronically Signed Shashank Patel M.D. Gross Description Received in formalin, labeled "necrotic soft tissue left foot" are 3 orellana, irregular portions of soft tissue measuring 0.7 x 0.7 x 0.3 cm in aggregate. The specimen is submitted in toto in one cassette. GAYATRI/01/05/2019 alvin/01/05/2019
[2019-01-07] MEDS ORDERED: CLINDAMYCIN HCL 150 MG CAPSULE (FP) PO SCH (14:00)
--- NOTE | 2019-01-31 21:27 | OP ---
DATE OF OPERATION: 01/05/2019 PREOPERATIVE DIAGNOSIS: Necrotic wound, left foot, with possible foreign body. POSTOPERATIVE DIAGNOSIS: Necrotic wound, left foot, with possible foreign body. PROCEDURE: Debridement of necrotic tissue, exploration of wound for foreign body. SURGEON: Niki Daniels DPM CUSTOMER CARE ASSISTANT: Kendell Colindres DPM PROCEDURE: After noting all preoperative vital signs within normal limits and after the surgical consent was signed and witnessed, the patient was brought to the OR , placed on the table in supine position. Once the patient was on the table, a well-padded ankle tourniquet was applied to the left ankle. Once this was done , the foot was then prepped and draped in the usual fashion. Once the foot was prepped and draped, the tourniquet was not elevated at this time. The wound was identified on the medial aspect of the left foot. The wound was debrided using a 15 blade to subcutaneius tissue approximately 0.5cm in depth. A culture was done at this time. The wound was also explored for any foreign body. There was no foreign body noted at this time. A flush was then done with copious amounts of sterile saline that had antibiotic added to it. Xeroform gauze, dry sterile dressing was applied using a Kerlix. The patient tolerated the anesthesia and the procedure well. Patient returned to recovery with vital signs stable and vascular status intact. DANIELLE Bartholomew/[id number] MTDD
== END 2019-01-07 13:49 | disposition home or self-care (01) | DRG 571 ==
LOC: JER 11:01 → JERBED 12:48 → J8W 20:26
PROVIDERS: ADMIT Internal Medicine; ATTEND Nurse Practitioner Acute Care
PROC: 0JBR0ZZ Excision of Left Foot Subcutaneous Tissue and Fascia, Open Approach (ICD-10-PCS; principal; 2019-01-05 07:30)
DX: L03.116 Cellulitis of left lower limb (principal); N17.9 Acute kidney failure, unspecified; I96 Gangrene, not elsewhere classified; I25.10 Atherosclerotic heart disease of native coronary artery without angina pectoris; I10 Essential (primary) hypertension; E78.5 Hyperlipidemia, unspecified; I73.9 Peripheral vascular disease, unspecified; M32.14 Glomerular disease in systemic lupus erythematosus; Z89.611 Acquired absence of right leg above knee; L97.529 Non-pressure chronic ulcer of other part of left foot with unspecified severity
CPT/HCPCS: 36415; 71046-TC-FY; 73630-TC-LT; 73718-TC-LT; 80048; 80053; 83036; 83605; 83735; 84100; 85025; 85027; 85610; 85651; 85730; 86140; 87040; 87070; 87205; 88304-TC; 93005; 93010; 93926-TC; 94760; 99284-25; G0480; J1644

== ENCOUNTER 2019-01-17 19:28 | Inpatient (IN) | payer BC, OTHER ==
--- NOTE | 2019-01-17 20:07 | PDOC ---
History of Present Illness - General Chief Complaint: SIRS, Suspected/Possible Stated Complaint: FEVER/HEADACHE Time Seen by Provider: 01/17/19 20:06 History Source: Patient Exam Limitations: No Limitations - History of Present Illness Initial Comments: Pt is a 73 yo F, with PMH of Lupus (s/p lymphadenectomy and R renal stent), R BKA (s/p gangrene), PAD (b/l stents), CAD, HTN, HLD, and anemia, who is presenting with fever (Tmax 102.3 oral), nausea, light sensitivity, and headache x2 days. Pt states she developed a rash over her R back and R ribs yesterday. Pt has been taking tylenol today for fever and headache with minimal relief. Pt denies any vision changes, syncope, chest pain, palpitations, SOB, vomiting, abdominal pain, urinary symptoms, diarrhea/constipation, or leg swelling. Allergies: NKDA PCP: Dr. Montoya Social: Pt denies any cigarette, alcohol, or drug use. Pt denies any recent travel or sick contacts. 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 01/17/19 22:05 01/17/19 22:17 01/17/19 22:19 Past History - Travel Traveled outside of the country in the last 30 days: No Close contact w/someone who was outside of country & ill: No - Past Medical History Allergies/Adverse Reactions: Allergies Allergy/AdvReac Type Severity Reaction Status Date / Time Sulfa (Sulfonamide Allergy Severe RASH,VOMITI Verified 01/17/19 19:55 Antibiotics) NG,DIZZINES S codeine [Codeine] Allergy Hives Verified 01/17/19 19:55 Penicillins Allergy Hives Verified 01/17/19 19:55 lactose AdvReac Verified 01/17/19 19:55 ranitidine [From Zantac] AdvReac headache Verified 01/17/19 19:55 Home Medications: Ambulatory Orders Hydroxychloroquine Sulfate [Plaquenil] 200 mg PO DAILY 10/20/15 Nifedipine [Procardia Xl] 60 mg PO BID 10/20/15 predniSONE [Deltasone -] 7 mg PO DAILY 10/20/15 Iron,Carbonyl [Feosol] 65 mg PO DAILY 11/20/15 Vitamin B Complex [B Complex # 1] 1 each PO DAILY 11/20/15 Labetalol HCl 200 mg PO TID 07/22/17 Calcium Carbonate [Calcium] 1,000 mg PO DAILY 05/17/18 Famotidine [Pepcid] 20 mg PO DAILY 05/17/18 Gabapentin [Neurontin -] 600 mg PO TID 05/17/18 Magnesium Chloride [Slow-Mag -] 64 mg PO DAILY 05/17/18 Multivit-Min36/Iron/Folic Acid [Geritol Complete Tablet] 1 each PO DAILY Aspirin [ASA -] 81 mg PO DAILY tab.chew 06/01/18 Cholecalciferol (Vitamin D3) [Vitamin D3 -] 1,000 units PO DAILY 09/17/18 Acetaminophen [Tylenol .Extra-Strength -] 1,000 mg PO Q6H PRN tablet 01/07/19 Clindamycin [Cleocin -] 300 mg PO TID #15 capsule 01/07/19 Collagenase Clostridium Hist. [Santyl -] 1 applic TP DAILY tube 01/07/19 Multivitamins [Multivit ([facility] Formulary)] 1 tab PO DAILY tab 01/07/19 Polyethylene Glycol 3350 [Miralax 119 gm Btl -] 17 gm PO DAILY bottle 01/07/19 predniSONE [Deltasone -] 7 mg PO DAILY tablet 01/07/19 predniSONE [Deltasone -] 7 mg PO DAILY tablet 01/07/19 Anemia: Yes (chronic) Asthma: No Cancer: No Cardiac Disorders: Yes (Leg stents, CAD, PVD, vasculitis) CVA: No COPD: No CHF: No DVT: Yes (by history) Dementia: No Diabetes: No Dialysis: No GI Disorders: Yes (GERD) Disorders: Yes (HAS URETERAL STENT) HTN: Yes Hypercholesterolemia: Yes Kidney Stones: Yes Liver Disease: No Psychiatric Problems: No Seizures: No Thyroid Disease: No Other medical history: lupus - Surgical History Abdominal Surgery: Yes (10/2015 mass removed-negative) Appendectomy: No Cardiac Surgery: Yes (STENTS OCTOBER 2010 IN LEFT LEG) Cholecystectomy: No Lung Surgery: No Neurologic Surgery: No Orthopedic Surgery: Yes ([place] BUENROSTRO (1996)) - Immunization History Immunization Up to Date: Yes - Suicide/Smoking/Psychosocial Hx Smoking Status: No Smoking History: Never smoked Have you smoked in the past 12 months: No Number of Cigarettes Smoked Daily: 0 If you are a former smoker, when did you quit?: 1979 Hx Alcohol Use: No Drug/Substance Use Hx: No Substance Use Type: None Hx Substance Use Treatment: No Review of Systems - Review of Systems Able to Perform ROS?: Yes Is the patient limited Andorran proficient: No Constitutional: Yes: Chills, Fever, Weight Stable. No: Diaphoresis, Loss of Appetite, Malaise, Night Sweats, Weakness HEENTM: Yes: See HPI (photophobia). No: Eye Pain, Blurred Vision, Recent change in vision, Double Vision, Nose Congestion, Throat Pain, Throat Swelling, Difficulty Swallowing Respiratory: No: Cough, Orthopnea, Shortness of Breath Cardiac (ROS): No: Chest Pain, Edema, Irregular Heart Rate, Lightheadedness, Palpitations, Syncope, Chest Tightness ABD/GI: Yes: Nausea. No: Constipated, Diarrhea, Poor Appetite, Poor Fluid Intake, Vomiting : No: Burning, Dysuria, Flank Pain, Hematuria, Pain, Urgency Musculoskeletal: Yes: See HPI, Neck Pain. No: Back Pain, Joint Pain, Muscle Pain, Muscle Weakness Integumentary: Yes: See HPI, Rash Neurological: Yes: Headache. No: Numbness, Paresthesia, Seizure, Unsteady Gait , Ataxia, Dizziness Psychiatric: No: Sleep Pattern Change, Change in Appetite Endocrine: No: Increased Urine, Change in Weight Hematologic/Lymphatic: Yes: Anemia, Lymph Node Abnormalities (2/2 lupus, see HPI ). No: Blood Clots, Easy Bleeding, Easy Bruising *Physical Exam - Vital Signs Last Vital Signs Temp Pulse Resp BP Pulse Ox 98.9 F 80 18 146/49 L 97 01/17/19 19:55 01/17/19 19:55 01/17/19 19:55 01/17/19 19:55 01/17/19 19:55 - Physical Exam Comments: Vitals stable, pt afebrile. Pt appears uncomfortable, normal body habitus. Pt alert and oriented x3. dietitian assistant generally intact, muscular strength and sensation intact. +neck stiffness with tenderness of neck movements. No midline spinal tenderness to palpation, step-offs, or crepitus. R bka. Head normocephalic, atraumatic. Eyes PERRLA, EOMI. Clear eye drainage b/l with no pain with EOMI. Oropharynx without erythema or exudates, no LAD b/l. No nasal congestion, hearing intact. Clear heart sounds, S1/S2, no JVD, b/l pedal edema, or heart murmur. Clear lung sounds, no respiratory distress, wheezes, crackles, or accessory muscle use. No abdominal or CVA tenderness to palpation, no rebound, no guarding. Abdomen soft, non-distended, and with normoactive bowel sounds. +Vesicular rash to R posterior ribs and upper back. Well-healing ulcer to L foot (plantar inferior to 1st MT) with no overlying erythema or drainage. 01/17/19 22:26 ED Treatment Course - LABORATORY CBC & Chemistry Diagram: 01/17/19 20:20 01/17/19 20:20 Medical Decision Making - Medical Decision Making Pt was seen at bedside, also will be seen by attending Dr. Hyatt. Pt presenting with meningeal signs and shingles to R ribs/back. Ordered sepsis work-up. Placed pt in isolation room. Providing abx, will get CT head, coags, and will do LP to eval for bacterial vs viral meningitis. Provided 2 g IV rocephin, 10 mg/kg IV acyclovir, 15 mg/kg vancomycin, and 1 L IV NS for hydration and abx coverage. Will continue to reassess pt and monitor for symptomatic improvement. 01/17/19 22:29 CBC: WBC 11.4 CMP WNL for pt baseline. Coags WNL 01/17/19 22:31 Ct head without acute pathology LP performed (consent obtained in chart), CSF taken to lab. Pending urine. Paged hospitalist team for admission. 01/18/19 01:51 Pt accepted to hospitalist team. 01/18/19 02:25 *DC/Admit/Observation/Transfer Diagnosis at time of Disposition: Meningitis Shingles Qualifiers: Herpes zoster complications: unspecified herpes zoster complication Qualified Code(s): B02.8 - Zoster with other complications - Discharge Dispostion Condition at time of disposition: Stable Decision to Admit order: Yes - Referrals - Patient Instructions - Post Discharge Activity
[2019-01-17] MEDS ORDERED: ACETAMINOPHEN 1000 MG/100 ML VIAL (NON FORMULARY) IVPB ONE (20:22)
[2019-01-17] MEDS ORDERED: SODIUM CHLORIDE 1,000 ML IV STA (20:22)
--- NOTE | 2019-01-17 20:36 | PDOC ---
Documentation entered by Karl Demarco SCRIBE, acting as scribe for Fabrizio Hyatt MD. Fabrizio Hyatt MD: This documentation has been prepared by the Nilam quintana Nirvannie, SCRIBE, under my direction and personally reviewed by me in its entirety. I confirm that the documentation accurately reflects all work, treatment, procedures, and medical decision making performed by me. Attending Attestation - Resident Resident Name: XiomaraCristiane - ED Attending Attestation I have performed the following: I have examined & evaluated the patient, The case was reviewed & discussed with the resident, I agree w/resident's findings & plan - HPI HPI: 01/17/19 23:21 CC: Fever, Headache, Rash HPI: The patient is a 73 year old male, with a significant past medical history of Lupus (s/p lymphadenectomy and R renal stent), R BKA (s/p gangrene), PAD (b/l stents), CAD, HTN, HLD, and anemia, who presents to the emergency department with, 2 days of a headache, photophobia, fever (Tmax 102.3), and nausea. Patient notes an associated new onset rash to the right-sided back and right ribs onsetting yesterday. She notes taking Tylenol, without relief prompting her arrival to the ED. He denies any recent chest pain or shortness of breath. - Physicial Exam PE: 01/18/19 01:46 Vitals: Triage Vital signs reviewed General Appearance: no acute distress, well nourished well developed, Head: Atraumatic, Neck: Supple;Mild Nucal rigidity Chest Wall: Nontender Cardiac: Regular rate and rhythym, no murmurs, no rubs, no gallops, Lungs: Clear to auscultation bilateral, good air movement bilaterally, Abdomen: Soft, non distended, normal bowel sounds, non tender to palpation Extremities: Full range of motion to all extremities, no cyanosis, clubbing, or edema Skin: Warm and dry, Zoster rash to Right ribs thoracic region Neuro: AOX3; Cranial Nerves 2-12 grossly intact, Strength intact to all extremities, Sensation intact to all extremities,gait normal Psych: normal mood, normal affect - Medical Decision Making 01/18/19 01:49 73 years old with lupus, lupus nephritis presents to the emergency department with worrisome triad of fever headache neck pain also with new shingles rash to back Patient empirically covered with meningitis dosed antibiotics as well as acyclovir for possible Herpes meningitis Lumbar puncture performed will admit patient to hospital for further management Patient will require inpatient admission given cultures necessary to evaluate for bacterial meningitis 01/18/19 02:12
[2019-01-17] MEDS ORDERED: ACETAMINOPHEN INJECTION 100 ML IVPB ONE (21:01)
[2019-01-17] MEDS ORDERED: CEFTRIAXONE 2,000 MG in DEXTROSE 5%-WATER - 50 ML IVPB ONE (21:19)
[2019-01-17] MEDS ORDERED: VANCOMYCIN 1,000 MG in DEXTROSE 5%-WATER - 250 ML IVPB ONE (21:20)
[2019-01-17] MEDS ORDERED: ACYCLOVIR INJECTION 620 MG in DEXTROSE 5%-WATER - 100 ML IVPB ONE (21:21)
[2019-01-17] MEDS ORDERED: VANCOMYCIN 1 GRAM (PRE-DOCKED) 1,000 MG/250 ML BAG IVPB ONE (21:41)
[2019-01-17] MEDS ORDERED: CEFTRIAXONE 2 GM/100 ML BAG IVPB ONE (21:41)
[2019-01-17 21:50] LABS: BASO % 1.1 % (0-2.0); EOS % 1.9 % (0-4.5); HEMATOCRIT 31.7 % (32.4-45.2); HEMOGLOBIN 9.9 GM/dL (10.7-15.3); LYMPH % 21.3 % (8-40); MCH 25.1 pg (25.7-33.7); MCHC 31.2 g/dl (32.0-36.0); MEAN CELL VOLUME 80.4 fl (80-96); MEAN PLT VOLUME 8.5 fl (7.5-11.1); MONO % 10.8 % (3.8-10.2); NEUT % 64.9 % (42.8-82.8); PLATELET COUNT 455 K/MM3 (134-434); RBC 3.94 M/mm3 (3.60-5.2); RDW 18.6 % (11.6-15.6); WHITE BLOOD COUNT 11.4 K/mm3 (4.0-10.0)
[2019-01-17 22:02] LABS: ALBUMIN 3.1 g/dl (3.4-5.0); BILIRUBIN,TOTAL 0.1 mg/dL (0.2-1); BLOOD UREA NITROGEN 18.6 mg/dL (7-18); CALCIUM 9.6 mg/dL (8.5-10.1); CREATININE 1.3 mg/dL (0.55-1.3); TOT PROT 7.7 g/dl (6.4-8.2)
[2019-01-17 22:12] LABS: INR 1.07 (0.83-1.09); PROTHROMBIN TIME (PATIENT) 12.6 SEC (9.7-13.0)
[2019-01-17] MEDS ORDERED: ACETAMINOPHEN 325 MG TABLET (FP) PO ONE (22:13)
[2019-01-17 22:15] LABS: ACTIVATED PTT 29.7 SECONDS (25.2-36.5)
[2019-01-17] MEDS ORDERED: ACETAMINOPHEN 325 MG TABLET (FP) ONE (23:10)
[2019-01-18] MEDS ORDERED: LIDOCAINE HCL 1%, 10 MG/ML (20ML VIAL) ONE (00:30)
[2019-01-18] MEDS ORDERED: LIDOCAINE HCL 1%, 10 MG/ML (50 mL VIAL) SQ ONE (00:30)
[2019-01-18 02:38] LABS: EPI CELLS 1.6 /HPF (0-5/HPF); HYALINE CASTS 2 /lpf (0-8); PH,URINE 6.5 (5.0-8.0); URINE APPEARANCE CLEAR; URINE BACTERIA 1.2 /hpf (NEGATIVE); URINE BILIRUBIN NEGATIVE (NEGATIVE); URINE COLOR YELLOW; URINE GLUCOSE (UA) NEGATIVE (NEGATIVE); URINE KETONE NEGATIVE (NEGATIVE); URINE LEUK ESTERASE TRACE (NEGATIVE); URINE NITRITE NEGATIVE (NEGATIVE); URINE PROTEIN TRACE (NEGATIVE); URINE UROBILINOGEN 0.2 mg/dL (0.2-1.0); URINE WBC 4 /hpf (0-5)
--- NOTE | 2019-01-18 03:08 | HP ---
CHIEF COMPLAINT: headache and chills PCP: Dr. Yaya Montoya HISTORY OF PRESENT ILLNESS: Carol Trent is a 73 year old female with a past medical history of lupus (s/p lymphadenectomy, R renal stent), R BKA (s/p gangrene), PAD (b/l stents), CAD, HTN, HLD, anemia, hx of DVT who presents with a headache and chills. Patient stated that she has had a headache, photophobia, phonophobia, nausea, decreased appetite, lightheadedness, generalized weakness, neck pain since . Stated that the symptoms were progressively getting worse and day before admission she developed chills and at times felt like she might have a fever. Additionally, yesterday she noted that she began to have a painful and pruritic rash on her back and underneath her breast. She took Tylenol for the pain and had limited relief. She was getting worried that her symptoms were not remitting and she was beginning to feel very weak and not able to ambulate well and came to the hospital for further evaluation. Denied chest pain, shortness of breath, abdominal pain, vomiting, numbness/tingling, confusion, trauma, loss of consciousness, cough. Denied recent sick contacts, changes in medications, recent travel. Additionally, stated she had nasal congestion for about a week or more with rhinnorhea. ER course was notable for: (1) WBC 11.4, CRE 1.3 (baseline 1.0-1.1) (2) CT head with no acute pathology, CXR with no acute pathology (3) LP performed for CSF analysis Recent Travel: denies PAST MEDICAL HISTORY: as above PAST SURGICAL HISTORY: R kidney stent lymphadenectomy R BKA bilateral LE stents Social History: Smoking: former, quit many years ago Alcohol: denies Drugs: denies Lives by herself, is visited by her sons frequently. Ambulates with a cane, walker, and has wheelchair at home. Allergies Sulfa (Sulfonamide Antibiotics) Allergy (Severe, Verified 01/17/19 19:55) RASH,VOMITING,DIZZINESS codeine [Codeine] Allergy (Verified 01/17/19 19:55) Hives Penicillins Allergy (Verified 01/17/19 19:55) Hives lactose Adverse Reaction (Verified 01/17/19 19:55) ranitidine [From Zantac] Adverse Reaction (Verified 01/17/19 19:55) headache HOME MEDICATIONS: Home Medications Medication Instructions Recorded Hydroxychloroquine Sulfate 200 mg PO DAILY 10/20/15 [Plaquenil] Nifedipine [Procardia Xl] 60 mg PO BID 10/20/15 predniSONE [Deltasone -] 7 mg PO DAILY 10/20/15 Iron,Carbonyl [Feosol] 65 mg PO DAILY 11/20/15 Vitamin B Complex [B Complex # 1] 1 each PO DAILY 11/20/15 Labetalol HCl 200 mg PO TID 07/22/17 Calcium Carbonate [Calcium] 1,000 mg PO DAILY 05/17/18 Famotidine [Pepcid] 20 mg PO DAILY 05/17/18 Gabapentin [Neurontin -] 600 mg PO TID 05/17/18 Multivit-Min36/Iron/Folic Acid 1 each PO DAILY 05/17/18 [Geritol Complete Tablet] Aspirin [ASA -] 81 mg PO DAILY tab.chew 06/01/18 Cholecalciferol (Vitamin D3) 1,000 units PO DAILY 09/17/18 [Vitamin D3 -] Acetaminophen [Tylenol 1,000 mg PO Q6H PRN tablet 01/07/19 .Extra-Strength -] Collagenase Clostridium Hist. 1 applic TP DAILY tube 01/07/19 [Santyl -] Multivitamins [Multivit ([facility] 1 tab PO DAILY tab 01/07/19 Formulary)] Polyethylene Glycol 3350 [Miralax 17 gm PO DAILY bottle 01/07/19 119 gm Btl -] REVIEW OF SYSTEMS CONSTITUTIONAL: fever, chills, generalized weakness, loss of appetite Absent: diaphoresis, malaise, weight change HEENT: nasal congestion, rhinorrhea Absent: throat pain, throat swelling, difficulty swallowing, mouth swelling, ear pain, eye pain, visual changes CARDIOVASCULAR: Absent: chest pain, syncope, palpitations, irregular heart rate, lightheadedness , peripheral edema RESPIRATORY: Absent: cough, shortness of breath, dyspnea with exertion, orthopnea, wheezing, stridor, hemoptysis GASTROINTESTINAL: nausea Absent: abdominal pain, abdominal distension, vomiting, diarrhea, constipation GENITOURINARY: Absent: dysuria, frequency, urgency, hesitancy, hematuria, flank pain, genital pain MUSCULOSKELETAL: neck pain and stiffness Absent: myalgia, arthralgia, joint swelling, back pain, SKIN: Absent: rash, itching, pallor HEMATOLOGIC/IMMUNOLOGIC: Absent: easy bleeding, easy bruising, lymphadenopathy, frequent infections ENDOCRINE: Absent: unexplained weight gain, unexplained weight loss, heat intolerance, cold intolerance NEUROLOGIC: headache, photophobia, phonophobia Absent: focal weakness or paresthesias, dizziness, unsteady gait, seizure, mental status changes, bladder or bowel incontinence PSYCHIATRIC: Absent: anxiety, depression, suicidal or homicidal ideation, hallucinations. PHYSICAL EXAMINATION Vital Signs - 24 hr 01/17/19 19:55 Temperature 98.9 F Pulse Rate 80 Respiratory 18 Rate Blood Pressure 146/49 L O2 Sat by Pulse 97 Oximetry (%) GENERAL: Awake, alert, and fully oriented, in moderate acute distress. Shivering in bed. HEAD: Normal with no signs of trauma. EYES: Pupils equal, round and reactive to light, extraocular movements intact, conjunctival injection. EARS, NOSE, THROAT: Oropharynx clear without exudates. Dry mucous membranes. NECK: Neck stiffness, decreased range of motion. LUNGS: Breath sounds equal, clear to auscultation bilaterally. No wheezes, and no crackles. No accessory muscle use. HEART: Regular rate and rhythm, normal S1 and S2 without murmur, rub. ABDOMEN: Soft, nontender, not distended, normoactive bowel sounds, no guarding, no rebound, no masses. MUSCULOSKELETAL: Normal range of motion at all joints. Tender at joints when moving. UPPER EXTREMITIES: 2+ pulses, warm, well-perfused. No cyanosis. No clubbing. No peripheral edema. LOWER EXTREMITIES: 1+ pulse on L difficult to palpate, cool, well-perfused. Tender to palpation throughout, no peripheral edema. R BKA noted with prosthesis. NEUROLOGICAL: Cranial nerves II-XII intact. 4/5 muscle strength throughout, R BKA. PSYCHIATRIC: Cooperative. Good eye contact. Appropriate mood and affect. SKIN: Warm, dry, normal turgor, Noted vesicular rash on back overlapping 2 dermatomes on the R side. Noted vesicular rash below the breast on the R side. L foot ulcer on medial aspect of foot observed. Laboratory Results - last 24 hr 01/17/19 01/17/19 01/17/19 20:20 20:20 20:20 WBC 11.4 H RBC 3.94 Hgb 9.9 L Hct 31.7 L MCV 80.4 MCH 25.1 L MCHC 31.2 L RDW 18.6 H Plt Count 455 H MPV 8.5 Absolute Neuts (auto) 7.4 Neutrophils % 64.9 Lymphocytes % 21.3 Monocytes % 10.8 H Eosinophils % 1.9 Basophils % 1.1 Nucleated RBC % 0 PT with INR INR PTT (Actin FS) Sodium 141 Potassium 4.0 Chloride 107 Carbon Dioxide 24 Anion Gap 10 BUN 18.6 H Creatinine 1.3 Est GFR (CKD-EPI)AfAm 47.46 Est GFR (CKD-EPI)NonAf 40.95 Random Glucose 85 Lactic Acid 1.3 Calcium 9.6 Total Bilirubin 0.1 L AST 13 L ALT 18 Alkaline Phosphatase 74 Total Protein 7.7 Albumin 3.1 L Urine Color Urine Appearance Urine pH Ur Specific [place] Urine Protein Urine Glucose (UA) Urine Ketones Urine Blood Urine Nitrite Urine Bilirubin Urine Urobilinogen Ur Leukocyte Esterase Urine WBC (Auto) Urine Casts (Auto) U Epithel Cells (Auto) Urine Bacteria (Auto) 01/17/19 01/18/19 20:20 02:25 WBC RBC Hgb Hct MCV MCH MCHC RDW Plt Count MPV Absolute Neuts (auto) Neutrophils % Lymphocytes % Monocytes % Eosinophils % Basophils % Nucleated RBC % PT with INR 12.60 INR 1.07 PTT (Actin FS) 29.7 Sodium Potassium Chloride Carbon Dioxide Anion Gap BUN Creatinine Est GFR (CKD-EPI)AfAm Est GFR (CKD-EPI)NonAf Random Glucose Lactic Acid Calcium Total Bilirubin AST ALT Alkaline Phosphatase Total Protein Albumin Urine Color Yellow Urine Appearance Clear Urine pH 6.5 Ur Specific [place] 1.012 Urine Protein Trace Urine Glucose (UA) Negative Urine Ketones Negative Urine Blood 2+ H Urine Nitrite Negative Urine Bilirubin Negative Urine Urobilinogen 0.2 Ur Leukocyte Esterase Trace Urine WBC (Auto) 4 Urine Casts (Auto) 2 U Epithel Cells (Auto) 1.6 Urine Bacteria (Auto) 1.2 ASSESSMENT/PLAN: Carol Trent is a 73 year old female with a past medical history of lupus (s/p lymphadenectomy, R renal stent), R BKA (s/p gangrene), PAD (b/l stents), CAD, HTN, HLD, anemia, hx of DVT who is admitted for disseminated zoster and questionable meningitis. Meningitis Disseminated Zoster HTN L foot ulcer Lupus Peripheral Neuropathy Meningitis - CT as above - CSF preliminary showing 8 WBC (only lymphocytes), elevated protein count, normal glucose, consistent with possible viral meningitis - Viral panel for HSV and VZV in CSF - PCN allergy, hives - continue acyclovir 620mg q8h - continue vancomycin 1g renally dose - continue ceftriaxone 2g daily - meropenem 2g daily - continue to monitor for signs of infection - isolation and airborne precautions - serum and CSF cryptococcal antigen - Fungitell - CXR to evaluate for VZV pneumonitis - IVF - ID consult, Dr. Cervantse - respiratory viral panel - consider brain MRI in setting of acute meningitis to evaluate for lesions Disseminated Zoster - hx of varicella zoster infection in childhood - setting of acute VZV eruption in immunocompromised state, treat until lesions crust over - cover rashes with gauze - continue acyclovir 620mg q8h - strict isolation precautions L foot ulcer - continue vancomycin and ceftriaxone - podiatry consulted - blood cultures - physical therapy HTN - continue home labetalol and nifedipine Lupus - continue home prednisone and hydroxychloroquine - Rheumatology consulted, assess for prednisone use in acute zoster episode Peripheral Neuropathy - continue home gabapentin FEN - NS at 75cc/hr - continue to monitor electrolytes and replete as necessary - sodium/fat controlled diet Prophylaxis - heparin 5000 units subq tid Code - full code JESUSITA LOGAN DO - PGY-1 Family Medical History Other Family History: Mother lupus. Sister lupus Visit type - Emergency Visit Emergency Visit: Yes ED Registration Date: 01/18/19 Care time: The patient presented to the Emergency Department on the above date and was hospitalized for further evaluation of their emergent condition. - New Patient This patient is new to me today: Yes Date on this admission: 01/18/19 - Critical Care Critical Care patient: No
[2019-01-18 03:15] LABS: BF GLUCOSE (CSF ONLY) 47 mg/dL (40-70)
[2019-01-18 03:24] LABS: CSF APPEARANCE CLEAR; CSF COLOR COLORLESS; CSF WBC 8
--- NOTE | 2019-01-18 03:48 | PN ---
Teaching Attending Note Name of Resident: Ridge Moy ATTENDING PHYSICIAN STATEMENT I saw and evaluated the patient. I reviewed the resident's note and discussed the case with the resident. I agree with the resident's findings and plan as documented. SUBJECTIVE: 73 year old female with a past medical history of steroid dependent lupus (s/p lymphadenectomy, R renal stent), R BKA (s/p gangrene), PAD (b/l stents), CAD, HTN, HLD, anemia, hx of DVT just discharged after being treated for left foot infected ulcer returns c/o severe headache, photophobia, phonophobia, nausea, and painful rash under right breast and right upper back. Denied cough or urinary symptoms. Completed course of oral antibiotics for foot ulcer. OBJECTIVE: Last Vital Signs Temp Pulse Resp BP Pulse Ox 98.6 F 74 19 153/62 95 01/17/19 20:40 01/17/19 20:40 01/17/19 20:40 01/17/19 20:40 01/17/19 20:40 gen -shivering, appears uncomfortable heent- atrauamtic, no oral exudates neck cv-s1+s2+rrr chest - clear b/l abdomen -soft skin - red vesicle rash involving right anterior T5 dermatome as well as right posterior T2-T4 dermatomes ext - right sided BKA (s/p gangrene), left foot plantar ulcer with yellow crusting, some erythema around site, Abnormal Lab Results 01/17/19 01/17/19 01/18/19 20:20 20:20 01:32 WBC 11.4 H Hgb 9.9 L Hct 31.7 L MCH 25.1 L MCHC 31.2 L RDW 18.6 H Plt Count 455 H Monocytes % 10.8 H BUN 18.6 H Total Bilirubin 0.1 L AST 13 L Albumin 3.1 L Urine Blood CSF Total Protein 86 H 01/18/19 02:25 WBC Hgb Hct MCH MCHC RDW Plt Count Monocytes % BUN Total Bilirubin AST Albumin Urine Blood 2+ H CSF Total Protein imaging reviewed ASSESSMENT AND PLAN: Disseminated Zoster in immunocompromised patient -(chronic prednisone and SLE) appears to be in dermatomes described above in physical exam. Appears septic upon presentation. Given severe headache and disseminated zoster, I have a moderate suspicion of VZV meningitis. We should rule out bacterial and other viral meningitis as well. Right foot ulcer site is erythematous and possible failure of antibiotic therapy. leukocytosis+, anemia, hypoalbuminemia. -admit to med/surg -blood cultures -urine culture -s/p LP - send cell count with diff, protein, glucose, bacterial culture, gram stain, VZV PCR, HSV 1 PCR, HSV 2 PCR -respiratory viral pcr panel -esr, crp -contact and airborne precautions -id consult -cover rash lesions -podiatry consult for foot ulcer care -acyclovir 10mg/kg q8hrs iv -vancomycin 1g IV stat -meropenem 2g Iv stat (cover listeria in immunocompromised host, allergy to penicillin and sulfa) -iv fluid hydration especially with acyclovir to prevent crystal nephropathy -tylenol for headache -gabapentin for neuropathy -should consult rheumatology and discuss if can lower dose of prednisone given her disseminated zoster (currently on 7mg po daily) -dvt ppx
[2019-01-18] MEDS ORDERED: MEROPENEM 2 GM in DEXTROSE 5%-WATER 100 ML IVPB ONE (04:00)
[2019-01-18] MEDS ORDERED: MEROPENEM 1 GM VIAL (RESTRICTED TO ID) IVPB ONE (04:17)
[2019-01-18] MEDS ORDERED: ACETAMINOPHEN 1000 MG/100 ML VIAL (NON FORMULARY) IVPB PRN (04:17)
[2019-01-18] MEDS: SODIUM CHLORIDE 1,000 ML IV SCH ×2 (04:36→22:00)
[2019-01-18 04:47] LABS: URINE RBC 34 /hpf (0-4)
[2019-01-18] MEDS ORDERED: LABETALOL HCL 100 MG TABLET (FP) ONE (06:29)
[2019-01-18] MEDS ORDERED: HEPARIN NA (PORCINE) 5,000 UNITS/ML 1ML VIAL ONE (06:29)
[2019-01-18] MEDS: HEPARIN NA (PORCINE) 5,000 UNITS/ML 1ML VIAL SQ SCH ×3 (06:50→22:30)
[2019-01-18] MEDS: LABETALOL HCL 100 MG TABLET (FP) PO SCH ×3 (06:50→23:13)
[2019-01-18] MEDS ORDERED: ACYCLOVIR INJECTION 620 MG in DEXTROSE 5%-WATER - 100 ML IVPB SCH ×2 (08:00→10:00)
[2019-01-18] MEDS: GABAPENTIN 300 MG CAPSULE (FP) PO SCH ×3 (09:17→23:13)
[2019-01-18 09:24] LABS: BASO % 1.1 % (0-2.0); EOS % 3.2 % (0-4.5); HEMATOCRIT 32.6 % (32.4-45.2); HEMOGLOBIN 10.2 GM/dL (10.7-15.3); LYMPH % 14.5 % (8-40); MCH 25.2 pg (25.7-33.7); MCHC 31.4 g/dl (32.0-36.0); MEAN CELL VOLUME 80.2 fl (80-96); MEAN PLT VOLUME 8.5 fl (7.5-11.1); MONO % 10.4 % (3.8-10.2); NEUT % 70.8 % (42.8-82.8); PLATELET COUNT 438 K/MM3 (134-434); RBC 4.06 M/mm3 (3.60-5.2); RDW 18.3 % (11.6-15.6); WHITE BLOOD COUNT 10.3 K/mm3 (4.0-10.0)
--- NOTE | 2019-01-18 09:56 | CONSULT ---
Consult - text type - Consultation Consultation Note: Neurology CHIEF COMPLAINT: headache and chills PCP: Dr. Yaya Montoya HISTORY OF PRESENT ILLNESS: Carol Trent is a 73 year old female with a past medical history of lupus (s/p lymphadenectomy, R renal stent), R BKA (s/p gangrene), PAD (b/l stents), CAD, HTN, HLD, anemia, hx of DVT who presents with a headache and chills. Patient stated that she has had a headache, photophobia, phonophobia, nausea, decreased appetite, lightheadedness, generalized weakness, neck pain since previous week. Stated that the symptoms were progressively getting worse and day before admission she developed chills and at times felt like she might have a fever. Additionally, yesterday she noted that she began to have a painful and pruritic rash on her back and underneath her breast. She took Tylenol for the pain and had limited relief. She was getting worried that her symptoms were not remitting and she was beginning to feel very weak and not able to ambulate well and came to the hospital for further evaluation. Denied chest pain, shortness of breath, abdominal pain, vomiting, numbness/tingling, confusion, trauma, loss of consciousness, cough. Denied recent sick contacts, changes in medications, recent travel. Additionally, stated she had nasal congestion for about a week or more with rhinnorhea. In the ER, found to have WBC 11.4, CRE 1.3 (baseline 1.0-1.1). CT head with no acute pathology, CXR with no acute pathology. There was a concern for meningitis and therefore lumbar puncture was performed, CSF results reviewed and demonstrated white blood cells of 8 as well as increased protein to 86, glucose of 47 (normal range). This may be suspicious for viral meningitis, differential (lymphs, neutrophils) would be of benefit. Patient remains with chills in isolation but awake, alert, mental status at baseline and recognizes the examiner. Recent Travel: denies PAST MEDICAL HISTORY: as above PAST SURGICAL HISTORY: R kidney stent lymphadenectomy R BKA bilateral LE stents FAmily: HTN Social History: Smoking: former, quit many years ago Alcohol: denies Drugs: denies Lives by herself, is visited by her sons frequently. Ambulates with a cane, walker, and has wheelchair at home. Allergies Sulfa (Sulfonamide Antibiotics) Allergy (Severe, Verified 01/17/19 19:55) RASH,VOMITING,DIZZINESS codeine [Codeine] Allergy (Verified 01/17/19 19:55) Hives Penicillins Allergy (Verified 01/17/19 19:55) Hives lactose Adverse Reaction (Verified 01/17/19 19:55) ranitidine [From Zantac] Adverse Reaction (Verified 01/17/19 19:55) headache HOME MEDICATIONS: Home Medications Medication Instructions Recorded Hydroxychloroquine Sulfate 200 mg PO DAILY 10/20/15 [Plaquenil] Nifedipine [Procardia Xl] 60 mg PO BID 10/20/15 predniSONE [Deltasone -] 7 mg PO DAILY 10/20/15 Iron,Carbonyl [Feosol] 65 mg PO DAILY 11/20/15 Vitamin B Complex [B Complex # 1] 1 each PO DAILY 11/20/15 Labetalol HCl 200 mg PO TID 07/22/17 Calcium Carbonate [Calcium] 1,000 mg PO DAILY 05/17/18 Famotidine [Pepcid] 20 mg PO DAILY 05/17/18 Gabapentin [Neurontin -] 600 mg PO TID 05/17/18 Multivit-Min36/Iron/Folic Acid 1 each PO DAILY 05/17/18 [Geritol Complete Tablet] Aspirin [ASA -] 81 mg PO DAILY tab.chew 06/01/18 Cholecalciferol (Vitamin D3) 1,000 units PO DAILY 09/17/18 [Vitamin D3 -] Acetaminophen [Tylenol 1,000 mg PO Q6H PRN tablet 01/07/19 .Extra-Strength -] Collagenase Clostridium Hist. 1 applic TP DAILY tube 01/07/19 [Santyl -] Multivitamins [Multivit ([facility] 1 tab PO DAILY tab 01/07/19 Formulary)] Polyethylene Glycol 3350 [Miralax 17 gm PO DAILY bottle 01/07/19 119 gm Btl -] REVIEW OF SYSTEMS CONSTITUTIONAL: fever, chills, generalized weakness, loss of appetite Absent: diaphoresis, malaise, weight change HEENT: nasal congestion, rhinorrhea Absent: throat pain, throat swelling, difficulty swallowing, mouth swelling, ear pain, eye pain, visual changes CARDIOVASCULAR: Absent: chest pain, syncope, palpitations, irregular heart rate, lightheadedness , peripheral edema RESPIRATORY: Absent: cough, shortness of breath, dyspnea with exertion, orthopnea, wheezing, stridor, hemoptysis GASTROINTESTINAL: nausea Absent: abdominal pain, abdominal distension, vomiting, diarrhea, constipation GENITOURINARY: Absent: dysuria, frequency, urgency, hesitancy, hematuria, flank pain, genital pain MUSCULOSKELETAL: neck pain and stiffness Absent: myalgia, arthralgia, joint swelling, back pain, SKIN: Absent: rash, itching, pallor HEMATOLOGIC/IMMUNOLOGIC: Absent: easy bleeding, easy bruising, lymphadenopathy, frequent infections ENDOCRINE: Absent: unexplained weight gain, unexplained weight loss, heat intolerance, cold intolerance NEUROLOGIC: headache, photophobia, phonophobia Absent: focal weakness or paresthesias, dizziness, unsteady gait, seizure, mental status changes, bladder or bowel incontinence PSYCHIATRIC: Absent: anxiety, depression, suicidal or homicidal ideation, hallucinations. PHYSICAL EXAMINATION Vital Signs Period Temp Pulse Resp BP Sys/[place] Pulse Ox Last 24 Hr 98.6 F-99.3 F 74-84 18-19 146-173/49-66 95-98 GENERAL: Awake, alert, and fully oriented, in moderate acute distress. Shivering in bed. HEAD: Normal with no signs of trauma. EYES: Pupils equal, round and reactive to light, extraocular movements intact, conjunctival injection. EARS, NOSE, THROAT: Oropharynx clear without exudates. Dry mucous membranes. NECK: Neck stiffness, decreased range of motion. LUNGS: Breath sounds equal, clear to auscultation bilaterally. No wheezes, and no crackles. No accessory muscle use. HEART: Regular rate and rhythm, normal S1 and S2 without murmur, rub. ABDOMEN: Soft, nontender, not distended, normoactive bowel sounds, no guarding, no rebound, no masses. MUSCULOSKELETAL: Normal range of motion at all joints. Tender at joints when moving. UPPER EXTREMITIES: 2+ pulses, warm, well-perfused. No cyanosis. No clubbing. No peripheral edema. LOWER EXTREMITIES: 1+ pulse on L difficult to palpate, cool, well-perfused. Tender to palpation throughout, no peripheral edema. R BKA noted with prosthesis. NEUROLOGICAL: Cranial nerves II-XII intact. 4/5 muscle strength throughout, R BKA. PSYCHIATRIC: Cooperative. Good eye contact. Appropriate mood and affect. SKIN: Warm, dry, normal turgor Laboratory Results - last 24 hr 01/17/19 01/17/19 01/17/19 20:20 20:20 20:20 WBC 11.4 H RBC 3.94 Hgb 9.9 L Hct 31.7 L MCV 80.4 MCH 25.1 L MCHC 31.2 L RDW 18.6 H Plt Count 455 H MPV 8.5 Absolute Neuts (auto) 7.4 Neutrophils % 64.9 Lymphocytes % 21.3 Monocytes % 10.8 H Eosinophils % 1.9 Basophils % 1.1 Nucleated RBC % 0 PT with INR INR PTT (Actin FS) Sodium 141 Potassium 4.0 Chloride 107 Carbon Dioxide 24 Anion Gap 10 BUN 18.6 H Creatinine 1.3 Est GFR (CKD-EPI)AfAm 47.46 Est GFR (CKD-EPI)NonAf 40.95 Random Glucose 85 Lactic Acid 1.3 Calcium 9.6 Total Bilirubin 0.1 L AST 13 L ALT 18 Alkaline Phosphatase 74 Total Protein 7.7 Albumin 3.1 L Urine Color Urine Appearance Urine pH Ur Specific [place] Urine Protein Urine Glucose (UA) Urine Ketones Urine Blood Urine Nitrite Urine Bilirubin Urine Urobilinogen Ur Leukocyte Esterase Urine WBC (Auto) Urine Casts (Auto) U Epithel Cells (Auto) Urine Bacteria (Auto) 01/17/19 01/18/19 20:20 02:25 WBC RBC Hgb Hct MCV MCH MCHC RDW Plt Count MPV Absolute Neuts (auto) Neutrophils % Lymphocytes % Monocytes % Eosinophils % Basophils % Nucleated RBC % PT with INR 12.60 INR 1.07 PTT (Actin FS) 29.7 Sodium Potassium Chloride Carbon Dioxide Anion Gap BUN Creatinine Est GFR (CKD-EPI)AfAm Est GFR (CKD-EPI)NonAf Random Glucose Lactic Acid Calcium Total Bilirubin AST ALT Alkaline Phosphatase Total Protein Albumin Urine Color Yellow Urine Appearance Clear Urine pH 6.5 Ur Specific [place] 1.012 Urine Protein Trace Urine Glucose (UA) Negative Urine Ketones Negative Urine Blood 2+ H Urine Nitrite Negative Urine Bilirubin Negative Urine Urobilinogen 0.2 Ur Leukocyte Esterase Trace Urine WBC (Auto) 4 Urine Casts (Auto) 2 U Epithel Cells (Auto) 1.6 Urine Bacteria (Auto) 1.2 ASSESSMENT/PLAN: 73 year old female with a past medical history of lupus (s/p lymphadenectomy, R renal stent), R BKA (s/p gangrene), PAD (b/l stents), CAD, HTN, HLD, anemia, hx of DVT who presents with a headache and chills. Patient stated that she has had a headache, photophobia, phonophobia, nausea, decreased appetite, lightheadedness, generalized weakness, neck pain since previous week. Stated that the symptoms were progressively getting worse and day before admission she developed chills and at times felt like she might have a fever. Additionally, yesterday she noted that she began to have a painful and pruritic rash on her back and underneath her breast. She took Tylenol for the pain and had limited relief. She was getting worried that her symptoms were not remitting and she was beginning to feel very weak and not able to ambulate well and came to the hospital for further evaluation. Denied chest pain, shortness of breath, abdominal pain, vomiting, numbness/tingling, confusion, trauma, loss of consciousness, cough. Denied recent sick contacts, changes in medications, recent travel. Additionally, stated she had nasal congestion for about a week or more with rhinnorhea. In the ER, found to have WBC 11.4, CRE 1.3 (baseline 1.0-1.1). CT head with no acute pathology, CXR with no acute pathology. There was a concern for meningitis and therefore lumbar puncture was performed, CSF results reviewed and demonstrated white blood cells of 8 as well as increased protein to 86, glucose of 47 (normal range). This may be suspicious for viral meningitis, differential (lymphs, neutrophils) would be of benefit. Patient remains with chills in isolation but awake, alert, mental status at baseline and recognizes the examiner. Follow up ID rec'd, Abx/meds per ID. Supportive care also recommended, IV hydration as needed. Ffollow-up CSF results, maintain isolation precautions and protocol. Monitor blood pressure, maintain normotensive range, bedrest needed, DVT ppx as patient not ambulating.
[2019-01-18 10:00] LABS: ALBUMIN 2.9 g/dl (3.4-5.0); BILIRUBIN,TOTAL 0.2 mg/dL (0.2-1); BLOOD UREA NITROGEN 11.8 mg/dL (7-18); CALCIUM 9.1 mg/dL (8.5-10.1); CREATININE 1.2 mg/dL (0.55-1.3); MAGNESIUM 2.2 mg/dL (1.8-2.4); PHOSPHOROUS 2.4 mg/dL (2.5-4.9); POTASSIUM 3.7 mmol/L (3.5-5.1); TOT PROT 7.3 g/dl (6.4-8.2)
[2019-01-18] MEDS ORDERED: MULTIVITAMINS (DAILY MVI) TABLET (FP) PO SCH (10:00)
[2019-01-18] MEDS ORDERED: predniSONE 10 MG TABLET (UD) PO SCH (10:00)
[2019-01-18] MEDS ORDERED: IRON CARBONYL 65 MG PO SCH (10:00)
[2019-01-18] MEDS: VITAMIN B COMP W-C 1 EA TABLET PO SCH (10:22)
[2019-01-18] MEDS: ASPIRIN 81 MG CHEWABLE TABLETS PO SCH (10:22)
[2019-01-18] MEDS: NIFEdipine E.R 60 MG TABLET (UD) PO SCH ×2 (10:23→23:13)
[2019-01-18] MEDS: COLLAGENASE CLOSTRIDIUM HIST. 30 GRAMS TUBE TP SCH (10:23)
[2019-01-18] MEDS: HYDROXYCHLOROQUINE SO4 200 MG TABLET (FP) PO SCH (10:23)
[2019-01-18] MEDS: CALCIUM (OYSTER SHELL) 500 MG TABLET (FP) PO SCH (10:23)
[2019-01-18] MEDS: CHOLECALCIFEROL (VIT D3) 1,000 UNIT (25 MCG) TABLET PO SCH (10:24)
[2019-01-18] MEDS: MULTIVITAMINS (DAILY MVI) TABLET (FP) PO SCH (10:24)
[2019-01-18] MEDS: RANITIDINE HCL 150 MG TABLET (FP) PO SCH (10:24)
--- NOTE | 2019-01-18 10:26 | EKG ---
Test Reason : Blood Pressure : / mmHG Vent. Rate : 090 BPM Atrial Rate : 090 BPM P-R Int : 144 ms QRS Dur : 072 ms QT Int : 344 ms P-R-T Axes : 059 049 059 degrees QTc Int : 420 ms NORMAL SINUS RHYTHM NORMAL ECG WHEN COMPARED WITH ECG OF 30-DEC-2018 12:41, NO SIGNIFICANT CHANGE WAS FOUND Confirmed by YENI BASURTO MD ([id number]) on 01/18/2019 10:26:10 AM Referred By: Confirmed By:YENI BASURTO MD
[2019-01-18] MEDS ORDERED: VANCOMYCIN 1 GRAM (PRE-DOCKED) 1,000 MG/250 ML BAG IVPB ONE (11:13)
[2019-01-18] MEDS: VANCOMYCIN 1 GM in D5W (PRE-DOCKED) 1,000 MG/250 ML IVPB SCH ×2 (14:00→23:43)
[2019-01-18] MEDS ORDERED: CEFTRIAXONE 1 GM/50 ML BAG ONE (19:25)
[2019-01-18] MEDS ORDERED: ACETAMINOPHEN/CAFFEINE/BUTALBITAL 1 TAB ONE (19:27)
[2019-01-18] MEDS: ACETAMINOPHEN/CAFFEINE/BUTALBITAL 1 TAB PO PRN (19:34)
--- NOTE | 2019-01-18 23:01 | CONSULT ---
Consult Consult Specialty:: Rheumatology - History of Present Illness History of Present Illness: 73 year old female with PMH of CAD, HTN, HLD, Anemia, hx of DVT, PAD (b/l stents ), right renal stent, s/p right BKA and possible connective tissue disease, admitted with Herpes Zoster. HPI. Connective tissue disease. I followed the patient in my office from 2010 to 2013. 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 S /P below knee amputation in 1996. The etiology was not clear and I do not have report of pathology. A possibility of lupus was raised. The patient has history of SHANKAR and anti-SSA positive and all other serology and complement were negative or normal. The patient has had ulcers and skin rash in the left leg. A skin biopsy of the left leg from 07/17/12 was reported with lobular panniculitis with focal granulomatous inflammation and necrosis. PAS, GMS, Acid fast and Samaria stains were negative. The differential diagnosis was erythema induratum or metastasic Crohns disease. The extensive fibrous deposition and focal granulomatous inflammation in the subcutis would be very unusual for lupus panniculitis. The diagnosis of lupus was unlikely. The patient has not have inflammatory arthritis, oral ulcers, hair loss, Sicca syndrome or Raynauds phenomenon. Since 2015 she had had urinalysis with blood 2+ and occasional protein. She did not have evidence of other organ involvement. At the present time she is on Hydroxychloroquine 200 mg/d and Prednisone 7.5 mg /d. She does not take other immunosuppressive medications. On 01/14/19 the patient developed headache, nausea, general malaise and on she developed a painful and pruritic rash on her back and underneath her breast. On admission she was diagnosed with disseminated Zoster, rule out meningitis. Today she had fever (100.1). Laboratory work-up revealed CBC with WBC of 11.4, Hgb 9.9, HCT 31.7 and platelets 455. ESR 85 and CRP 3.9. Creatinine 1.3 and LFT normal. Urinalysis with blood 2+ and no protein. LP: WBC: 8, RBC: 125, glucose 47 and protein 86. - History Source History Provided By: Patient, Medical Record - Past Medical History Cardio/Vascular: Yes: CAD Gastrointestinal: Yes: GERD Renal/: Yes: Renal Failure, Other (renal obstruction s/p stents) ...LMP: 12/31/18 Endocrine: Yes: Diabetes Mellitus - Past Surgical History Past Surgical History: Yes: Amputation (R AKA) - Alcohol/Substance Use Hx Alcohol Use: No - Smoking History Smoking history: Never smoked Have you smoked in the past 12 months: No Aproximately how many cigarettes per day: 0 If you are a former smoker, when did you quit?: 1979 - Social History Usual Living Arrangement: Other (her son and her grown grandson live with her) ADL: Independent History of Recent Travel: No Home Medications - Allergies Allergies/Adverse Reactions: Allergies Allergy/AdvReac Type Severity Reaction Status Date / Time Sulfa (Sulfonamide Allergy Severe RASH,VOMITI Verified 01/17/19 19:55 Antibiotics) NG,DIZZINES S codeine [Codeine] Allergy Hives Verified 01/17/19 19:55 Penicillins Allergy Hives Verified 01/17/19 19:55 lactose AdvReac Verified 01/17/19 19:55 ranitidine [From Zantac] AdvReac headache Verified 01/17/19 19:55 - Home Medications Home Medications: Ambulatory Orders Hydroxychloroquine Sulfate [Plaquenil] 200 mg PO DAILY 10/20/15 Nifedipine [Procardia Xl] 60 mg PO BID 10/20/15 predniSONE [Deltasone -] 7 mg PO DAILY 10/20/15 Iron,Carbonyl [Feosol] 65 mg PO DAILY 11/20/15 Vitamin B Complex [B Complex # 1] 1 each PO DAILY 11/20/15 Labetalol HCl 200 mg PO TID 07/22/17 Calcium Carbonate [Calcium] 1,000 mg PO DAILY 05/17/18 Famotidine [Pepcid] 20 mg PO DAILY 05/17/18 Gabapentin [Neurontin -] 600 mg PO TID 05/17/18 Multivit-Min36/Iron/Folic Acid [Geritol Complete Tablet] 1 each PO DAILY Aspirin [ASA -] 81 mg PO DAILY tab.chew 06/01/18 Cholecalciferol (Vitamin D3) [Vitamin D3 -] 1,000 units PO DAILY 09/17/18 Acetaminophen [Tylenol .Extra-Strength -] 1,000 mg PO Q6H PRN tablet 01/07/19 Collagenase Clostridium Hist. [Santyl -] 1 applic TP DAILY tube 01/07/19 Multivitamins [Multivit ([facility] Formulary)] 1 tab PO DAILY tab 01/07/19 Polyethylene Glycol 3350 [Miralax 119 gm Btl -] 17 gm PO DAILY bottle 01/07/19 Review of Systems - Review of Systems Constitutional: reports: Malaise Eyes: reports: No Symptoms HENT: reports: No Symptoms Neck: reports: No Symptoms Physical Exam Vital Signs: Vital Signs Temperature 98.2 F 01/18/19 18:30 Pulse Rate 77 01/18/19 18:30 Respiratory Rate 16 01/18/19 18:30 Blood Pressure 183/80 H 01/18/19 18:30 O2 Sat by Pulse Oximetry (%) 97 01/18/19 18:30 Constitutional: Yes: Moderate Distress Eyes: Yes: WNL HENT: Yes: WNL Cardiovascular: Yes: WNL Respiratory: Yes: WNL Gastrointestinal: Yes: WNL Musculoskeletal: Yes: Other (No active joints) Integumentary: Yes: Other (Skin rash in back suggestive of Herpes Zoster.) Labs: CBC, BMP 01/18/19 08:53 01/18/19 08:53 Laboratory Tests 01/17/19 01/17/19 01/18/19 20:20 20:20 01:32 ESR PT with INR 12.60 INR 1.07 PTT (Actin FS) 29.7 Calcium 9.6 Phosphorus Magnesium Total Bilirubin AST ALT Alkaline Phosphatase C-Reactive Protein Total Protein Albumin TSH Urine Appearance Urine pH Ur Specific [place] Urine Protein Urine Glucose (UA) Urine Ketones Urine Blood Urine Nitrite Urine Bilirubin Urine Urobilinogen Ur Leukocyte Esterase CSF Appearance Clear CSF Color Colorless CSF WBC 8 CSF RBC 125 CSF Glucose 47 CSF Total Protein 86 H 01/18/19 01/18/19 01/18/19 02:25 06:00 06:00 ESR 85 H PT with INR INR PTT (Actin FS) Calcium Phosphorus Magnesium Total Bilirubin AST ALT Alkaline Phosphatase C-Reactive Protein 3.9 H Total Protein Albumin TSH Urine Appearance Clear Urine pH 6.5 Ur Specific [place] 1.012 Urine Protein Trace Urine Glucose (UA) Negative Urine Ketones Negative Urine Blood 2+ H Urine Nitrite Negative Urine Bilirubin Negative Urine Urobilinogen 0.2 Ur Leukocyte Esterase Trace CSF Appearance CSF Color CSF WBC CSF RBC CSF Glucose CSF Total Protein 01/18/19 08:53 ESR PT with INR INR PTT (Actin FS) Calcium Phosphorus 2.4 L Magnesium 2.2 Total Bilirubin 0.2 AST 12 L ALT 16 Alkaline Phosphatase 70 C-Reactive Protein Total Protein 7.3 Albumin 2.9 L TSH 1.31 Urine Appearance Urine pH Ur Specific [place] Urine Protein Urine Glucose (UA) Urine Ketones Urine Blood Urine Nitrite Urine Bilirubin Urine Urobilinogen Ur Leukocyte Esterase CSF Appearance CSF Color CSF WBC CSF RBC CSF Glucose CSF Total Protein Problem List - Problems (1) Connective tissue disease Assessment/Plan: The patient does not have a definitive diagnosis of lupus. The reason for the BKS of the right leg is not clear, she has had skin rash in the left leg not suggestive of lupus and the only abnormal serology was SHANKAR and anti-SSA positive with all other serology including ANCA negative and normal complement. She has had chronic microscopic hematuria and occasional proteinuria. It is unlikley that she has lupus and there is not acute organ involvement suggestive of other connective tissue disease. There is no indication to treat the patient with steroids. Code(s): M35.9 - SYSTEMIC INVOLVEMENT OF CONNECTIVE TISSUE, UNSPECIFIED
[2019-01-18] MEDS: ACYCLOVIR INJECTION 620 MG in DEXTROSE 5%-WATER - 100 ML IVPB SCH (23:48)
[2019-01-19] MEDS: SODIUM CHLORIDE 1,000 ML IV SCH (05:32)
[2019-01-19] MEDS: GABAPENTIN 300 MG CAPSULE (FP) PO SCH ×3 (06:07→21:28)
[2019-01-19] MEDS: LABETALOL HCL 100 MG TABLET (FP) PO SCH ×3 (06:08→21:28)
[2019-01-19] MEDS: HEPARIN NA (PORCINE) 5,000 UNITS/ML 1ML VIAL SQ SCH ×3 (06:08→21:28)
[2019-01-19] MEDS: ACETAMINOPHEN/CAFFEINE/BUTALBITAL 1 TAB PO PRN (06:16)
--- NOTE | 2019-01-19 08:05 | PN ---
Progress Note (short form) - Note Progress Note: Neurology CHIEF COMPLAINT: headache and chills PCP: Dr. Yaya Montoya HISTORY OF PRESENT ILLNESS: Carol Trent is a 73 year old female with a past medical history of lupus (s/p lymphadenectomy, R renal stent), R BKA (s/p gangrene), PAD (b/l stents), CAD, HTN, HLD, anemia, hx of DVT who presents with a headache and chills. Patient stated that she has had a headache, photophobia, phonophobia, nausea, decreased appetite, lightheadedness, generalized weakness, neck pain since previous week. Stated that the symptoms were progressively getting worse and day before admission she developed chills and at times felt like she might have a fever. Additionally, yesterday she noted that she began to have a painful and pruritic rash on her back and underneath her breast. She took Tylenol for the pain and had limited relief. She was getting worried that her symptoms were not remitting and she was beginning to feel very weak and not able to ambulate well and came to the hospital for further evaluation. Denied chest pain, shortness of breath, abdominal pain, vomiting, numbness/tingling, confusion, trauma, loss of consciousness, cough. Denied recent sick contacts, changes in medications, recent travel. Additionally, stated she had nasal congestion for about a week or more with rhinnorhea. In the ER, found to have WBC 11.4, CRE 1.3 (baseline 1.0-1.1). CT head with no acute pathology, CXR with no acute pathology. There was a concern for meningitis and therefore lumbar puncture was performed, CSF results reviewed and demonstrated white blood cells of 8 as well as increased protein to 86, glucose of 47 (normal range). This may be suspicious for viral meningitis, differential (lymphs, neutrophils) would be of benefit. Patient remains with chills in isolation but awake, alert, mental status at baseline and recognizes the examiner. She appears more alert and interactive and less fatigued. Reports rash is improving and states that she is feeling better. Reviewed note from hospitalist, ID consult pending. Active Medications Acetaminophen (Ofirmev Injection -) 1,000 mg IVPB Q6H PRN PRN Reason: FEVER Last Admin: 01/18/19 10:27 Dose: 1,000 mg Acetaminophen/Butalbital/Caffeine (Fioricet -) 1 tablet PO Q6H PRN PRN Reason: HEADACHE Last Admin: 01/19/19 06:16 Dose: 1 tablet Aspirin (Asa -) 81 mg PO DAILY [facility] Last Admin: 01/18/19 10:22 Dose: 81 mg Calcium Carbonate (Os-Ryan 500mg -) 1,000 mg PO DAILY [facility] Last Admin: 01/18/19 10:23 Dose: 1,000 mg Ceftriaxone Sodium (Rocephin 2gm Ivpb (Pre-Docked)) 2 gm IVPB DAILY [facility] Cholecalciferol (Vitamin D3 -) 1,000 unit PO DAILY [facility] Last Admin: 01/18/19 10:24 Dose: 1,000 unit Collagenase (Santyl -) 1 applic TP DAILY [facility]; Protocol Last Admin: 01/18/19 10:23 Dose: Not Given Gabapentin (Neurontin -) 600 mg PO TID [facility] Last Admin: 01/19/19 06:07 Dose: 600 mg Heparin Sodium (Porcine) (Heparin -) 5,000 unit SQ TID [facility] Last Admin: 01/19/19 06:08 Dose: 5,000 unit Hydroxychloroquine Sulfate (Plaquenil -) 200 mg PO DAILY [facility] Last Admin: 01/18/19 10:23 Dose: 200 mg Sodium Chloride (Normal Saline -) 1,000 mls @ 75 mls/hr IV ASDIR [facility] Last Admin: 01/19/19 05:32 Dose: Not Given Acyclovir 620 mg/ Dextrose 112.4 mls @ 112.4 mls/hr IVPB BID [facility] Last Admin: 01/18/19 23:48 Dose: 112.4 mls/hr Labetalol HCl (Normodyne -) 200 mg PO TID [facility] Last Admin: 01/19/19 06:08 Dose: 200 mg Multivit/Ca Carb/B Cmplx/FA/Prenat (Nephro-Rebecca -) 1 tablet PO DAILY [facility] Last Admin: 01/18/19 10:22 Dose: 1 tablet Multivitamins/Minerals/Vitamin C (Tab-A-Vit -) 1 tab PO DAILY [facility] Last Admin: 01/18/19 10:24 Dose: 1 tab Nifedipine (Procardia Xl -) 60 mg PO BID [facility] Last Admin: 01/18/19 23:13 Dose: 60 mg Prednisone 5 mg/ Prednisone 2 (mg) 7 mg PO DAILY [facility] Last Admin: 01/18/19 10:22 Dose: 7 mg Ranitidine HCl (Zantac -) 150 mg PO DAILY [facility] Last Admin: 01/18/19 10:24 Dose: Not Given Vancomycin HCl (Vancomycin (Pre-Docked)) 1,000 mg IVPB BID [facility] Last Admin: 01/18/19 23:43 Dose: Not Given PHYSICAL EXAMINATION Vital Signs Period Temp Pulse Resp BP Sys/Hidalgo Pulse Ox Last 24 Hr 98.2 F-100.1 F 77-90 16-18 139-183/56-80 97-97 GENERAL: Awake, alert, and fully oriented, in moderate acute distress. Shivering in bed. HEAD: Normal with no signs of trauma. EYES: Pupils equal, round and reactive to light, extraocular movements intact, conjunctival injection. EARS, NOSE, THROAT: Oropharynx clear without exudates. Dry mucous membranes. NECK: Neck stiffness, decreased range of motion. LUNGS: Breath sounds equal, clear to auscultation bilaterally. No wheezes, and no crackles. No accessory muscle use. HEART: Regular rate and rhythm, normal S1 and S2 without murmur, rub. ABDOMEN: Soft, nontender, not distended, normoactive bowel sounds, no guarding, no rebound, no masses. MUSCULOSKELETAL: Normal range of motion at all joints. Tender at joints when moving. UPPER EXTREMITIES: 2+ pulses, warm, well-perfused. No cyanosis. No clubbing. No peripheral edema. LOWER EXTREMITIES: 1+ pulse on L difficult to palpate, cool, well-perfused. Tender to palpation throughout, no peripheral edema. R BKA noted with prosthesis. NEUROLOGICAL: Cranial nerves II-XII intact. 4/5 muscle strength throughout, R BKA. PSYCHIATRIC: Cooperative. Good eye contact. Appropriate mood and affect. SKIN: Warm, dry, normal turgor CBCD WBC 10.3 K/mm3 (4.0-10.0) H 01/18/19 08:53 RBC 4.06 M/mm3 (3.60-5.2) 01/18/19 08:53 Hgb 10.2 GM/dL (10.7-15.3) L 01/18/19 08:53 Hct 32.6 % (32.4-45.2) 01/18/19 08:53 MCV 80.2 fl (80-96) 01/18/19 08:53 MCHC 31.4 g/dl (32.0-36.0) L 01/18/19 08:53 RDW 18.3 % (11.6-15.6) H 01/18/19 08:53 Plt Count 438 K/MM3 (134-434) H 01/18/19 08:53 MPV 8.5 fl (7.5-11.1) 01/18/19 08:53 CMP Sodium 142 mmol/L (136-145) 01/18/19 08:53 Potassium 3.7 mmol/L (3.5-5.1) 01/18/19 08:53 Chloride 107 mmol/L (98-107) 01/18/19 08:53 Carbon Dioxide 24 mmol/L (21-32) 01/18/19 08:53 Anion Gap 11 MMOL/L (8-16) 01/18/19 08:53 BUN 11.8 mg/dL (7-18) 01/18/19 08:53 Creatinine 1.2 mg/dL (0.55-1.3) 01/18/19 08:53 Calcium 9.1 mg/dL (8.5-10.1) 01/18/19 08:53 Total Bilirubin 0.2 mg/dL (0.2-1) 01/18/19 08:53 AST 12 U/L (15-37) L 01/18/19 08:53 ALT 16 U/L (13-61) 01/18/19 08:53 Alkaline Phosphatase 70 U/L (45-117) 01/18/19 08:53 Total Protein 7.3 g/dl (6.4-8.2) 01/18/19 08:53 Albumin 2.9 g/dl (3.4-5.0) L 01/18/19 08:53 ASSESSMENT/PLAN: 73 year old female with a past medical history of lupus (s/p lymphadenectomy, R renal stent), R BKA (s/p gangrene), PAD (b/l stents), CAD, HTN, HLD, anemia, hx of DVT who presents with a headache and chills. Patient stated that she has had a headache, photophobia, phonophobia, nausea, decreased appetite, lightheadedness, generalized weakness, neck pain since previous week. Stated that the symptoms were progressively getting worse and day before admission she developed chills and at times felt like she might have a fever. Additionally, yesterday she noted that she began to have a painful and pruritic rash on her back and underneath her breast. She took Tylenol for the pain and had limited relief. She was getting worried that her symptoms were not remitting and she was beginning to feel very weak and not able to ambulate well and came to the hospital for further evaluation. Denied chest pain, shortness of breath, abdominal pain, vomiting, numbness/tingling, confusion, trauma, loss of consciousness, cough. Denied recent sick contacts, changes in medications, recent travel. Additionally, stated she had nasal congestion for about a week or more with rhinnorhea. In the ER, found to have WBC 11.4, CRE 1.3 (baseline 1.0-1.1). CT head with no acute pathology, CXR with no acute pathology. There was a concern for meningitis and therefore lumbar puncture was performed, CSF results reviewed and demonstrated white blood cells of 8 as well as increased protein to 86, glucose of 47 (normal range). This may be suspicious for viral meningitis, differential (lymphs, neutrophils) would be of benefit. She appears more alert and interactive and less fatigued. Reports rash is improving and states that she is feeling better. Reviewed note from hospitalist, ID consult pending. Follow up ID rec'd, Abx/meds per ID. Supportive care also recommended, IV hydration as needed. follow-up CSF results, maintain isolation precautions and protocol. Monitor blood pressure, maintain normotensive range, bedrest needed, DVT ppx as patient not ambulating. Rheumatology consult reviewed , does not feel conditions due to the lupus.
[2019-01-19] MEDS: cefTRIAXone 2 GM/100 ML BAG (PRE-DOCKED) IVPB SCH ×2 (08:20→16:28)
--- NOTE | 2019-01-19 09:22 | PN ---
Progress Note, Physician Chief Complaint: no complaints offered, in good spirits despite hospitalization History of Present Illness: Carol Trent is a 73 year old female with a past medical history of lupus (s/p lymphadenectomy, R renal stent), R BKA (s/p gangrene), PAD (b/l stents), CAD, HTN, HLD, anemia, hx of DVT who presents with a headache and chills. Patient stated that she has had a headache, photophobia, phonophobia, nausea, decreased appetite, lightheadedness, generalized weakness, neck pain since . Stated that the symptoms were progressively getting worse and day before admission she developed chills and at times felt like she might have a fever. Additionally, yesterday she noted that she began to have a painful and pruritic rash on her back and underneath her breast. She took Tylenol for the pain and had limited relief. She was getting worried that her symptoms were not remitting and she was beginning to feel very weak and not able to ambulate well and came to the hospital for further evaluation. Denied chest pain, shortness of breath, abdominal pain, vomiting, numbness/tingling, confusion, trauma, loss of consciousness, cough. Denied recent sick contacts, changes in medications, recent travel. Additionally, stated she had nasal congestion for about a week or more with rhinnorhea. PAST SURGICAL HISTORY: R kidney stent lymphadenectomy R BKA bilateral LE stents - Current Medication List Current Medications: Active Medications Acetaminophen (Ofirmev Injection -) 1,000 mg IVPB Q6H PRN PRN Reason: FEVER Last Admin: 01/18/19 10:27 Dose: 1,000 mg Acetaminophen/Butalbital/Caffeine (Fioricet -) 1 tablet PO Q6H PRN PRN Reason: HEADACHE Last Admin: 01/19/19 06:16 Dose: 1 tablet Aspirin (Asa -) 81 mg PO DAILY [facility] Last Admin: 01/18/19 10:22 Dose: 81 mg Calcium Carbonate (Os-Ryan 500mg -) 1,000 mg PO DAILY [facility] Last Admin: 01/18/19 10:23 Dose: 1,000 mg Ceftriaxone Sodium (Rocephin 2gm Ivpb (Pre-Docked)) 2 gm IVPB DAILY [facility] Last Admin: 01/19/19 08:20 Dose: Not Given Cholecalciferol (Vitamin D3 -) 1,000 unit PO DAILY [facility] Last Admin: 01/18/19 10:24 Dose: 1,000 unit Collagenase (Santyl -) 1 applic TP DAILY [facility]; Protocol Last Admin: 01/18/19 10:23 Dose: Not Given Gabapentin (Neurontin -) 600 mg PO TID [facility] Last Admin: 01/19/19 06:07 Dose: 600 mg Heparin Sodium (Porcine) (Heparin -) 5,000 unit SQ TID [facility] Last Admin: 01/19/19 06:08 Dose: 5,000 unit Hydroxychloroquine Sulfate (Plaquenil -) 200 mg PO DAILY [facility] Last Admin: 01/18/19 10:23 Dose: 200 mg Sodium Chloride (Normal Saline -) 1,000 mls @ 75 mls/hr IV ASDIR [facility] Last Admin: 01/19/19 05:32 Dose: Not Given Acyclovir 620 mg/ Dextrose 112.4 mls @ 112.4 mls/hr IVPB BID [facility] Last Admin: 01/18/19 23:48 Dose: 112.4 mls/hr Labetalol HCl (Normodyne -) 200 mg PO TID [facility] Last Admin: 01/19/19 06:08 Dose: 200 mg Multivit/Ca Carb/B Cmplx/FA/Prenat (Nephro-Rebceca -) 1 tablet PO DAILY [facility] Last Admin: 01/18/19 10:22 Dose: 1 tablet Multivitamins/Minerals/Vitamin C (Tab-A-Vit -) 1 tab PO DAILY [facility] Last Admin: 01/18/19 10:24 Dose: 1 tab Nifedipine (Procardia Xl -) 60 mg PO BID [facility] Last Admin: 01/18/19 23:13 Dose: 60 mg Prednisone 5 mg/ Prednisone 2 (mg) 7 mg PO DAILY [facility] Last Admin: 01/18/19 10:22 Dose: 7 mg Ranitidine HCl (Zantac -) 150 mg PO DAILY [facility] Last Admin: 01/18/19 10:24 Dose: Not Given Vancomycin HCl (Vancomycin (Pre-Docked)) 1,000 mg IVPB BID [facility] Last Admin: 01/18/19 23:43 Dose: Not Given - Objective Vital Signs: Vital Signs Temperature 98.8 F 01/19/19 06:42 Pulse Rate 85 01/19/19 06:42 Respiratory Rate 18 01/19/19 06:42 Blood Pressure 153/56 L 01/19/19 06:42 O2 Sat by Pulse Oximetry (%) 97 01/18/19 21:00 Constitutional: Yes: Well Nourished, No Distress, Calm Eyes: Yes: WNL, Conjunctiva Clear, EOM Intact HENT: Yes: WNL, Atraumatic, Normocephalic Neck: Yes: Tenderness (Neck stiffness, decreased range of motion.) Cardiovascular: Yes: WNL Respiratory: Yes: WNL, Regular, CTA Bilaterally Gastrointestinal: Yes: WNL, Normal Bowel Sounds ...Rectal Exam: Yes: Deferred Genitourinary: Yes: WNL Breast(s): Yes: Other (vescicles under right breast) Musculoskeletal: Yes: WNL Extremities: Yes: Other (right BKA) Edema: No Edema: LLE: Trace Peripheral Pulses WNL: No Peripheral Pulses: Left Radial: 2+, Right Radial: 2+, Left Doralis Pedis: 2+, Right Dorsalis Pedis: 2+, Left Femoral: 2+ Integumentary: Yes: Other (Noted vesicular rash on back overlapping 2 dermatomes on the R side. Noted vesicular rash below the breast on the R side. L foot ulcer on medial aspect of foot observed.) Neurological: Yes: WNL, Alert, Oriented ...Motor Strength: WNL, RLE (BKA) Labs: CBC, BMP 01/18/19 08:53 01/18/19 08:53 INR, PTT INR 1.07 (0.83-1.09) 01/17/19 20:20 Problem List - Problems (1) CAD (coronary artery disease) Assessment/Plan: c/w asa Code(s): I25.10 - ATHSCL HEART DISEASE OF [place] CORONARY ARTERY W/O ANG PCTRS (2) History of DVT (deep vein thrombosis) Assessment/Plan: c/w heparin while non ambulatory Code(s): Z86.718 - PERSONAL HISTORY OF OTHER VENOUS THROMBOSIS AND EMBOLISM (3) PVD (peripheral vascular disease) Assessment/Plan: s/p R BKA Code(s): I73.9 - PERIPHERAL VASCULAR DISEASE, UNSPECIFIED (4) Amputated right leg Code(s): Z89.611 - ACQUIRED ABSENCE OF RIGHT LEG ABOVE KNEE (5) Anemia Assessment/Plan: hgb 9.2 continue to trend Code(s): D64.9 - ANEMIA, UNSPECIFIED Qualifiers: Anemia type: unspecified type Qualified Code(s): D64.9 - Anemia, unspecified (6) HTN (hypertension) Assessment/Plan: normotensive c/w home medications-labetolol,procardia Code(s): I10 - ESSENTIAL (PRIMARY) HYPERTENSION Qualifiers: Hypertension type: secondary to endocrine disorders Qualified Code(s): I15.2 - Hypertension secondary to endocrine disorders (7) Hyperlipidemia Assessment/Plan: c/w low fat/chol diet Code(s): E78.5 - HYPERLIPIDEMIA, UNSPECIFIED (8) Meningitis Assessment/Plan: CT as above - CSF preliminary showing 8 WBC (only lymphocytes), elevated protein count, normal glucose, consistent with possible viral meningitis - Viral panel for HSV and VZV in CSF pending - continue acyclovir 620mg q8h as per ID - continue ceftriaxone/ vanco dc'd by ID c/w isolation and airborne precautions - serum and CSF cryptococcal antigen pending -appreciate ID consult, Dr. Cervantes -appreciate neurology consultation-Dr Cabrera - respiratory viral panel pending - consider brain MRI in setting of acute meningitis to evaluate for lesions Code(s): G03.9 - MENINGITIS, UNSPECIFIED (9) Shingles Assessment/Plan: c/w acyclovir until panels are resulted Code(s): B02.9 - ZOSTER WITHOUT COMPLICATIONS Qualifiers: Herpes zoster complications: unspecified herpes zoster complication Qualified Code(s): B02.8 - Zoster with other complications (10) Prophylactic measure Assessment/Plan: FEN low fat/chol diet monitor electrolytes DVT heparin sq Dispo maintain as in patient isolations precautions full code discharge planning Code(s): Z29.9 - ENCOUNTER FOR PROPHYLACTIC MEASURES, UNSPECIFIED (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 Assessment/Plan: hx of varicella zoster infection in childhood - setting of acute VZV eruption in immunocompromised state, treat until lesions crust over - cover rashes with gauze - continue acyclovir 620mg q8h - strict isolation precaution Code(s): B02.7 - DISSEMINATED ZOSTER (12) Foot ulcer, left Assessment/Plan: continue vancomycin and ceftriaxone - podiatry consulted - blood cultures ngtd Code(s): L97.529 - NON-PRESSURE CHRONIC ULCER OTH PRT LEFT FOOT W UNSP SEVERITY (13) Connective tissue disease Assessment/Plan: seen by rheumatology, [facility] diagnosis of [facility] is accurate-- SHANKAR and anti-SSA positive with all other serology including ANCA negative and normal complement no need to treat with steroids and will stop Code(s): M35.9 - SYSTEMIC INVOLVEMENT OF CONNECTIVE TISSUE, UNSPECIFIED Visit type - Emergency Visit Emergency Visit: Yes ED Registration Date: 01/18/19 Care time: The patient presented to the Emergency Department on the above date and was hospitalized for further evaluation of their emergent condition. - New Patient This patient is new to me today: Yes Date on this admission: 01/19/19 - Critical Care Critical Care patient: No - Discharge Referral Referred to [facility] No
[2019-01-19 09:45] LABS: BASO % 0.3 % (0-2.0); EOS % 4.8 % (0-4.5); HEMATOCRIT 28.3 % (32.4-45.2); HEMOGLOBIN 9.3 GM/dL (10.7-15.3); LYMPH % 21.5 % (8-40); MCH 26.1 pg (25.7-33.7); MCHC 32.8 g/dl (32.0-36.0); MEAN CELL VOLUME 79.5 fl (80-96); MEAN PLT VOLUME 8.5 fl (7.5-11.1); MONO % 10.9 % (3.8-10.2); NEUT % 62.5 % (42.8-82.8); PLATELET COUNT 378 K/MM3 (134-434); RBC 3.56 M/mm3 (3.60-5.2); RDW 18.9 % (11.6-15.6); WHITE BLOOD COUNT 9.4 K/mm3 (4.0-10.0)
[2019-01-19] MEDS ORDERED: PT OWN MED DRAWER 7, Y5N ONE ×2 (10:01→14:03)
[2019-01-19 10:20] LABS: ALBUMIN 2.7 g/dl (3.4-5.0); BILIRUBIN,TOTAL 0.5 mg/dL (0.2-1); BLOOD UREA NITROGEN 11.2 mg/dL (7-18); CALCIUM 8.5 mg/dL (8.5-10.1); CREATININE 1.2 mg/dL (0.55-1.3); MAGNESIUM 2.1 mg/dL (1.8-2.4); POTASSIUM 3.6 mmol/L (3.5-5.1); TOT PROT 6.8 g/dl (6.4-8.2)
[2019-01-19] MEDS: ASPIRIN 81 MG CHEWABLE TABLETS PO SCH (11:05)
[2019-01-19] MEDS: HYDROXYCHLOROQUINE SO4 200 MG TABLET (FP) PO SCH (11:05)
[2019-01-19] MEDS: NIFEdipine E.R 60 MG TABLET (UD) PO SCH ×2 (11:05→21:28)
[2019-01-19] MEDS: RANITIDINE HCL 150 MG TABLET (FP) PO SCH (11:05)
[2019-01-19] MEDS: CHOLECALCIFEROL (VIT D3) 1,000 UNIT (25 MCG) TABLET PO SCH (11:05)
[2019-01-19] MEDS: MULTIVITAMINS (DAILY MVI) TABLET (FP) PO SCH (11:05)
[2019-01-19] MEDS: VITAMIN B COMP W-C 1 EA TABLET PO SCH (11:06)
[2019-01-19] MEDS: CALCIUM (OYSTER SHELL) 500 MG TABLET (FP) PO SCH (11:08)
[2019-01-19] MEDS: ACYCLOVIR INJECTION 620 MG in DEXTROSE 5%-WATER - 100 ML IVPB SCH ×2 (11:09→22:31)
[2019-01-19] MEDS: VANCOMYCIN 1 GM in D5W (PRE-DOCKED) 1,000 MG/250 ML IVPB SCH (11:11)
--- NOTE | 2019-01-19 11:58 | CON.ID ---
Consult Consult Specialty:: infectious diseases Referred by:: hospitalist Reason for Consultation:: meningitis - History of Present Illness Chief Complaint: ams,photophobia History of Present Illness: 73 year old female with a past medical history of lupus (s/p lymphadenectomy, R renal stent), R BKA (s/p gangrene), PAD (b/l stents), CAD, HTN, HLD, anemia, hx of DVT who presents with a headache and chills and phtophobia. Patient stated that she has had a headache, photophobia, phonophobia, nausea, decreased appetite, lightheadedness, generalized weakness, neck pain since previous week. Stated that the symptoms were progressively getting worse and day before admission she developed chills and at times felt like she might have a fever. Additionally, yesterday she noted that she began to have a painful and pruritic rash on her back and underneath her breast. She took Tylenol for the pain and had limited relief. She was getting worried that her symptoms were not remitting and she was beginning to feel very weak and not able to ambulate well and came to the hospital for further evaluation. Denied chest pain, shortness of breath, abdominal pain, vomiting, numbness/tingling, confusion, trauma, loss of consciousness, cough. Denied recent sick contacts, changes in medications, recent travel. Additionally, stated she had nasal congestion for about a week or more with rhinnorhea. currently patient still c/o of photophobia and neck pain but looks much more awake and alert and is able to tell how the sequence occured lumbar puncture was performed, CSF results reviewed and demonstrated white blood cells of 8 as well as increased protein to 86, glucose of 47 (normal range ). This may be suspicious for viral meningitis, differential (lymphs, neutrophils) would be of benefit. Patient remains with chills in isolation but awake, alert, mental status at baseline and recognizes the examiner. - History Source History Provided By: Patient Limitations to Obtaining History: No Limitations - Past Medical History Cardio/Vascular: Yes: CAD Gastrointestinal: Yes: GERD Renal/: Yes: Renal Failure, Other (renal obstruction s/p stents) ...LMP: 12/31/18 Endocrine: Yes: Diabetes Mellitus - Past Surgical History Past Surgical History: Yes: Amputation (R AKA) - Alcohol/Substance Use Hx Alcohol Use: No - Smoking History Smoking history: Never smoked Have you smoked in the past 12 months: No Aproximately how many cigarettes per day: 0 If you are a former smoker, when did you quit?: 1979 - Social History Usual Living Arrangement: Other (her son and her grown grandson live with her) ADL: Independent History of Recent Travel: No Home Medications - Allergies Allergies/Adverse Reactions: Allergies Allergy/AdvReac Type Severity Reaction Status Date / Time Sulfa (Sulfonamide Allergy Severe RASH,VOMITI Verified 01/17/19 19:55 Antibiotics) NG,DIZZINES S codeine [Codeine] Allergy Hives Verified 01/17/19 19:55 Penicillins Allergy Hives Verified 01/17/19 19:55 lactose AdvReac Verified 01/17/19 19:55 ranitidine [From Zantac] AdvReac headache Verified 01/17/19 19:55 - Home Medications Home Medications: Ambulatory Orders Hydroxychloroquine Sulfate [Plaquenil] 200 mg PO DAILY 10/20/15 Nifedipine [Procardia Xl] 60 mg PO BID 10/20/15 predniSONE [Deltasone -] 7 mg PO DAILY 10/20/15 Iron,Carbonyl [Feosol] 65 mg PO DAILY 11/20/15 Vitamin B Complex [B Complex # 1] 1 each PO DAILY 11/20/15 Labetalol HCl 200 mg PO TID 07/22/17 Calcium Carbonate [Calcium] 1,000 mg PO DAILY 05/17/18 Famotidine [Pepcid] 20 mg PO DAILY 05/17/18 Gabapentin [Neurontin -] 600 mg PO TID 05/17/18 Multivit-Min36/Iron/Folic Acid [Geritol Complete Tablet] 1 each PO DAILY Aspirin [ASA -] 81 mg PO DAILY tab.chew 06/01/18 Cholecalciferol (Vitamin D3) [Vitamin D3 -] 1,000 units PO DAILY 09/17/18 Acetaminophen [Tylenol .Extra-Strength -] 1,000 mg PO Q6H PRN tablet 01/07/19 Collagenase Clostridium Hist. [Santyl -] 1 applic TP DAILY tube 01/07/19 Multivitamins [Multivit ([facility] Formulary)] 1 tab PO DAILY tab 01/07/19 Polyethylene Glycol 3350 [Miralax 119 gm Btl -] 17 gm PO DAILY bottle 01/07/19 Review of Systems - Review of Systems Constitutional: reports: Chills, Fever Eyes: reports: No Symptoms HENT: reports: No Symptoms, Other (photo[phobia) Neck: reports: Tenderness Cardiovascular: reports: No Symptoms Respiratory: reports: No Symptoms Gastrointestinal: reports: No Symptoms Musculoskeletal: reports: No Symptoms Integumentary: reports: No Symptoms Neurological: reports: Change in LOC Endocrine: reports: No Symptoms Hematology/Lymphatic: reports: No Symptoms Psychiatric: reports: No Symptoms Physical Exam Vital Signs: Vital Signs Temperature 98.8 F 01/19/19 06:42 Pulse Rate 85 01/19/19 06:42 Respiratory Rate 18 01/19/19 06:42 Blood Pressure 153/56 L 01/19/19 06:42 O2 Sat by Pulse Oximetry (%) 97 01/18/19 21:00 Constitutional: Yes: Calm, Mild Distress, Other (awake and alert) Eyes: Yes: Conjunctiva Clear Neck: Yes: Supple, Other (tenderness while moving) Cardiovascular: Yes: Regular Rate and Rhythm Respiratory: Yes: Regular, CTA Bilaterally Gastrointestinal: Yes: Normal Bowel Sounds, Soft Musculoskeletal: Yes: WNL Extremities: Yes: Other Integumentary: Yes: Other (rash noted) Neurological: Yes: Alert, Oriented Psychiatric: Yes: Alert, Oriented Labs: CBC, BMP 01/19/19 09:18 01/19/19 09:18 Imaging - Results Chest X-ray: Report Reviewed, Image Reviewed Cat Scan: Report Reviewed, Image Reviewed Assessment/Plan patient coming in with symptoma of headache,ams photophobia all the work up noted i think patient might have viaral mentingitis also herepes rash noted plan await for cx results continue abx acylovir monitor renal function hydration monitor neurology on case rest as per the team
--- NOTE | 2019-01-19 12:05 | PN ---
Progress Note, Physician History of Present Illness: stable doing well cx result noted - Current Medication List Current Medications: Active Medications Acetaminophen (Ofirmev Injection -) 1,000 mg IVPB Q6H PRN PRN Reason: FEVER Last Admin: 01/18/19 10:27 Dose: 1,000 mg Acetaminophen/Butalbital/Caffeine (Fioricet -) 1 tablet PO Q6H PRN PRN Reason: HEADACHE Last Admin: 01/19/19 06:16 Dose: 1 tablet Aspirin (Asa -) 81 mg PO DAILY [facility] Last Admin: 01/19/19 11:05 Dose: 81 mg Calcium Carbonate (Os-Ryan 500mg -) 1,000 mg PO DAILY [facility] Last Admin: 01/19/19 11:08 Dose: 1,000 mg Ceftriaxone Sodium (Rocephin 2gm Ivpb (Pre-Docked)) 2 gm IVPB DAILY [facility] Last Admin: 01/19/19 08:20 Dose: Not Given Cholecalciferol (Vitamin D3 -) 1,000 unit PO DAILY [facility] Last Admin: 01/19/19 11:05 Dose: 1,000 unit Collagenase (Santyl -) 1 applic TP DAILY [facility]; Protocol Last Admin: 01/18/19 10:23 Dose: Not Given Gabapentin (Neurontin -) 600 mg PO TID [facility] Last Admin: 01/19/19 06:07 Dose: 600 mg Heparin Sodium (Porcine) (Heparin -) 5,000 unit SQ TID [facility] Last Admin: 01/19/19 06:08 Dose: 5,000 unit Hydroxychloroquine Sulfate (Plaquenil -) 200 mg PO DAILY [facility] Last Admin: 01/19/19 11:05 Dose: 200 mg Sodium Chloride (Normal Saline -) 1,000 mls @ 75 mls/hr IV ASDIR [facility] Last Admin: 01/19/19 05:32 Dose: Not Given Acyclovir 620 mg/ Dextrose 112.4 mls @ 112.4 mls/hr IVPB BID [facility] Last Admin: 01/19/19 11:09 Dose: 112.4 mls/hr Labetalol HCl (Normodyne -) 200 mg PO TID [facility] Last Admin: 01/19/19 06:08 Dose: 200 mg Multivit/Ca Carb/B Cmplx/FA/Prenat (Nephro-Rebecca -) 1 tablet PO DAILY [facility] Last Admin: 01/19/19 11:06 Dose: 1 tablet Multivitamins/Minerals/Vitamin C (Tab-A-Vit -) 1 tab PO DAILY [facility] Last Admin: 01/19/19 11:05 Dose: 1 tab Nifedipine (Procardia Xl -) 60 mg PO BID [facility] Last Admin: 01/19/19 11:05 Dose: 60 mg Prednisone 5 mg/ Prednisone 2 (mg) 7 mg PO DAILY [facility] Last Admin: 01/19/19 11:07 Dose: 7 mg Ranitidine HCl (Zantac -) 150 mg PO DAILY [facility] Last Admin: 01/19/19 11:05 Dose: 150 mg - Objective Vital Signs: Vital Signs Temperature 98.8 F 01/19/19 06:42 Pulse Rate 85 01/19/19 06:42 Respiratory Rate 18 01/19/19 06:42 Blood Pressure 153/56 L 01/19/19 06:42 O2 Sat by Pulse Oximetry (%) 97 01/18/19 21:00 Constitutional: Yes: No Distress, Calm Cardiovascular: Yes: Regular Rate and Rhythm Respiratory: Yes: Regular, CTA Bilaterally Gastrointestinal: Yes: Normal Bowel Sounds, Soft Musculoskeletal: Yes: WNL Extremities: Yes: Other Integumentary: Yes: Other (rash) Neurological: Yes: Alert, Oriented Labs: CBC, BMP 01/19/19 09:18 01/19/19 09:18 INR, PTT INR 1.07 (0.83-1.09) 01/17/19 20:20 Assessment/Plan patient coming in with symptoma of headache,ams photophobia all the work up noted i think patient might have viaral mentingitis also herepes rash noted plan haynes stop vanco continue acylovir await for results rest as per the team
[2019-01-19] MEDS ORDERED: DEXTROSE 5%-WATER 100 ML IVPB ONE (15:49)
[2019-01-19] MEDS: CEFTRIAXONE 2 GM in DEXTROSE 5%-WATER 100 ML IVPB SCH (16:25)
[2019-01-19] MEDS: COLLAGENASE CLOSTRIDIUM HIST. 30 GRAMS TUBE TP SCH (16:59)
--- NOTE | 2019-01-19 20:47 | CONSULT ---
Consult Consult Specialty:: Podiatry Reason for Consultation:: wound left foot - History of Present Illness Chief Complaint: Meningitis/shingles History of Present Illness: s/p debridement - Past Medical History Cardio/Vascular: Yes: CAD Gastrointestinal: Yes: GERD Renal/: Yes: Renal Failure, Other (renal obstruction s/p stents) ...LMP: 12/31/18 Endocrine: Yes: Diabetes Mellitus - Past Surgical History Past Surgical History: Yes: Amputation (R AKA) - Alcohol/Substance Use Hx Alcohol Use: No - Smoking History Smoking history: Never smoked Have you smoked in the past 12 months: No Aproximately how many cigarettes per day: 0 If you are a former smoker, when did you quit?: 1979 - Social History Usual Living Arrangement: Other (her son and her grown grandson live with her) ADL: Independent History of Recent Travel: No Home Medications - Allergies Allergies/Adverse Reactions: Allergies Allergy/AdvReac Type Severity Reaction Status Date / Time Sulfa (Sulfonamide Allergy Severe RASH,VOMITI Verified 01/17/19 19:55 Antibiotics) NG,DIZZINES S codeine [Codeine] Allergy Hives Verified 01/17/19 19:55 Penicillins Allergy Hives Verified 01/17/19 19:55 lactose AdvReac Verified 01/17/19 19:55 ranitidine [From Zantac] AdvReac headache Verified 01/17/19 19:55 - Home Medications Home Medications: Ambulatory Orders Hydroxychloroquine Sulfate [Plaquenil] 200 mg PO DAILY 10/20/15 Nifedipine [Procardia Xl] 60 mg PO BID 10/20/15 predniSONE [Deltasone -] 7 mg PO DAILY 10/20/15 Iron,Carbonyl [Feosol] 65 mg PO DAILY 11/20/15 Vitamin B Complex [B Complex # 1] 1 each PO DAILY 11/20/15 Labetalol HCl 200 mg PO TID 07/22/17 Calcium Carbonate [Calcium] 1,000 mg PO DAILY 05/17/18 Famotidine [Pepcid] 20 mg PO DAILY 05/17/18 Gabapentin [Neurontin -] 600 mg PO TID 05/17/18 Multivit-Min36/Iron/Folic Acid [Geritol Complete Tablet] 1 each PO DAILY Aspirin [ASA -] 81 mg PO DAILY tab.chew 06/01/18 Cholecalciferol (Vitamin D3) [Vitamin D3 -] 1,000 units PO DAILY 09/17/18 Acetaminophen [Tylenol .Extra-Strength -] 1,000 mg PO Q6H PRN tablet 01/07/19 Collagenase Clostridium Hist. [Santyl -] 1 applic TP DAILY tube 01/07/19 Multivitamins [Multivit ([facility] Formulary)] 1 tab PO DAILY tab 01/07/19 Polyethylene Glycol 3350 [Miralax 119 gm Btl -] 17 gm PO DAILY bottle 01/07/19 Physical Exam Vital Signs: Vital Signs Temperature 98.6 F 01/19/19 16:30 Pulse Rate 83 01/19/19 16:30 Respiratory Rate 18 01/19/19 16:30 Blood Pressure 126/56 L 01/19/19 16:30 O2 Sat by Pulse Oximetry (%) 97 01/18/19 21:00 Musculoskeletal: Yes: Other (+granulating wound left foot, -drainage, -mal odor , +improved tenderness since last admission,) Labs: CBC, BMP 01/19/19 09:18 01/19/19 09:18 Assessment/Plan grade 2-3 wound left foot Santyl dressing daily to left foot. Will follow. xray left foot. read and appreciated ID note.
[2019-01-20] MEDS: SODIUM CHLORIDE 1,000 ML IV SCH (04:35)
[2019-01-20] MEDS: HEPARIN NA (PORCINE) 5,000 UNITS/ML 1ML VIAL SQ SCH ×3 (06:02→22:12)
[2019-01-20] MEDS: LABETALOL HCL 100 MG TABLET (FP) PO SCH ×3 (06:02→22:14)
[2019-01-20] MEDS: GABAPENTIN 300 MG CAPSULE (FP) PO SCH ×3 (06:02→22:13)
[2019-01-20] MEDS: ACETAMINOPHEN/CAFFEINE/BUTALBITAL 1 TAB PO PRN (06:04)
--- NOTE | 2019-01-20 08:15 | PN ---
Progress Note, Physician Chief Complaint: complaints of headaches with photophobia, pain to right arm/shoulder History of Present Illness: Carol Trent is a 73 year old female with a past medical history of lupus (s/p lymphadenectomy, R renal stent), R BKA (s/p gangrene), PAD (b/l stents), CAD, HTN, HLD, anemia, hx of DVT who presents with a headache and chills. Patient stated that she has had a headache, photophobia, phonophobia, nausea, decreased appetite, lightheadedness, generalized weakness, neck pain since . Stated that the symptoms were progressively getting worse and day before admission she developed chills and at times felt like she might have a fever. Additionally, yesterday she noted that she began to have a painful and pruritic rash on her back and underneath her breast. She took Tylenol for the pain and had limited relief. She was getting worried that her symptoms were not remitting and she was beginning to feel very weak and not able to ambulate well and came to the hospital for further evaluation. Denied chest pain, shortness of breath, abdominal pain, vomiting, numbness/tingling, confusion, trauma, loss of consciousness, cough. Denied recent sick contacts, changes in medications, recent travel. Additionally, stated she had nasal congestion for about a week or more with rhinnorhea. PAST SURGICAL HISTORY: R kidney stent lymphadenectomy R BKA bilateral LE stents - Current Medication List Current Medications: Active Medications Acetaminophen (Ofirmev Injection -) 1,000 mg IVPB Q6H PRN PRN Reason: FEVER Last Admin: 01/18/19 10:27 Dose: 1,000 mg Acetaminophen/Butalbital/Caffeine (Fioricet -) 1 tablet PO Q6H PRN PRN Reason: HEADACHE Last Admin: 01/20/19 06:04 Dose: 1 tablet Aspirin (Asa -) 81 mg PO DAILY [facility] Last Admin: 01/19/19 11:05 Dose: 81 mg Calcium Carbonate (Os-Ryan 500mg -) 1,000 mg PO DAILY [facility] Last Admin: 01/19/19 11:08 Dose: 1,000 mg Cholecalciferol (Vitamin D3 -) 1,000 unit PO DAILY [facility] Last Admin: 01/19/19 11:05 Dose: 1,000 unit Collagenase (Santyl -) 1 applic TP DAILY [facility]; Protocol Last Admin: 01/19/19 16:59 Dose: 1 applic Gabapentin (Neurontin -) 600 mg PO TID [facility] Last Admin: 01/20/19 06:02 Dose: 600 mg Heparin Sodium (Porcine) (Heparin -) 5,000 unit SQ TID [facility] Last Admin: 01/20/19 06:02 Dose: 5,000 unit Hydroxychloroquine Sulfate (Plaquenil -) 200 mg PO DAILY [facility] Last Admin: 01/19/19 11:05 Dose: 200 mg Sodium Chloride (Normal Saline -) 1,000 mls @ 75 mls/hr IV ASDIR [facility] Last Admin: 01/20/19 04:35 Dose: Not Given Acyclovir 620 mg/ Dextrose 112.4 mls @ 112.4 mls/hr IVPB BID [facility] Last Admin: 01/19/19 22:31 Dose: 112.4 mls/hr Ceftriaxone Sodium 2 gm/ (Dextrose) 100 mls @ 200 mls/hr IVPB DAILY [facility] Last Admin: 01/19/19 16:25 Dose: 200 mls/hr Labetalol HCl (Normodyne -) 200 mg PO TID [facility] Last Admin: 01/20/19 06:02 Dose: 200 mg Multivit/Ca Carb/B Cmplx/FA/Prenat (Nephro-Rebecca -) 1 tablet PO DAILY [facility] Last Admin: 01/19/19 11:06 Dose: 1 tablet Multivitamins/Minerals/Vitamin C (Tab-A-Vit -) 1 tab PO DAILY [facility] Last Admin: 01/19/19 11:05 Dose: 1 tab Nifedipine (Procardia Xl -) 60 mg PO BID [facility] Last Admin: 01/19/19 21:28 Dose: 60 mg Ranitidine HCl (Zantac -) 150 mg PO DAILY [facility] Last Admin: 01/19/19 11:05 Dose: 150 mg - Objective Vital Signs: Vital Signs Temperature 98.6 F 01/20/19 05:00 Pulse Rate 84 01/20/19 05:00 Respiratory Rate 18 01/20/19 05:00 Blood Pressure 149/64 01/20/19 05:00 O2 Sat by Pulse Oximetry (%) 97 01/18/19 21:00 Constitutional: Yes: Well Nourished, Mild Distress Eyes: Yes: WNL, Conjunctiva Clear HENT: Yes: WNL, Atraumatic, Normocephalic Neck: Yes: Tenderness (to neck) Cardiovascular: Yes: WNL, Regular Rate and Rhythm Respiratory: Yes: WNL, Regular, CTA Bilaterally Gastrointestinal: Yes: WNL, Normal Bowel Sounds ...Rectal Exam: Yes: Deferred Genitourinary: Yes: WNL Breast(s): Yes: Other (lesions as described) Musculoskeletal: Yes: Joint Stiffness, Muscle Pain Extremities: Yes: Other (right BKA, wound to Left foot) Edema: No Integumentary: Yes: Other (vesicular rash on back overlapping 2 dermatomes on the R side. Noted vesicular rash below the breast on the R side. L foot ulcer on medial aspect of foot observed.)) Neurological: Yes: WNL, Alert, Oriented ...Motor Strength: WNL Psychiatric: Yes: WNL Labs: CBC, BMP 01/19/19 09:18 01/19/19 09:18 INR, PTT INR 1.07 (0.83-1.09) 01/17/19 20:20 Problem List - Problems (1) CAD (coronary artery disease) Assessment/Plan: c/w asa Code(s): I25.10 - ATHSCL HEART DISEASE OF [place] CORONARY ARTERY W/O ANG PCTRS (2) History of DVT (deep vein thrombosis) Assessment/Plan: c/w heparin while non ambulatory Code(s): Z86.718 - PERSONAL HISTORY OF OTHER VENOUS THROMBOSIS AND EMBOLISM (3) PVD (peripheral vascular disease) Assessment/Plan: s/p R BKA Code(s): I73.9 - PERIPHERAL VASCULAR DISEASE, UNSPECIFIED (4) Amputated right leg Code(s): Z89.611 - ACQUIRED ABSENCE OF RIGHT LEG ABOVE KNEE (5) Anemia Assessment/Plan: hgb 9.3 continue to trend Code(s): D64.9 - ANEMIA, UNSPECIFIED Qualifiers: Anemia type: unspecified type Qualified Code(s): D64.9 - Anemia, unspecified (6) HTN (hypertension) Assessment/Plan: normotensive c/w home medications-labetolol,procardia Code(s): I10 - ESSENTIAL (PRIMARY) HYPERTENSION Qualifiers: Hypertension type: secondary to endocrine disorders Qualified Code(s): I15.2 - Hypertension secondary to endocrine disorders (7) Hyperlipidemia Assessment/Plan: c/w low fat/chol diet Code(s): E78.5 - HYPERLIPIDEMIA, UNSPECIFIED (8) Meningitis Assessment/Plan: CT as above - CSF preliminary showing 8 WBC (only lymphocytes), elevated protein count, normal glucose, consistent with possible viral meningitis - Viral panel for HSV and VZV in CSF pending - continue acyclovir 620mg q8h as per ID - continue ceftriaxone/ vanco dc'd by ID c/w isolation and airborne precautions - serum and CSF cryptococcal antigen pending -appreciate ID consult, Dr. Cervantes -appreciate neurology consultation-Dr Cabrera - respiratory viral panel pending - consider brain MRI in setting of acute meningitis to evaluate for lesions Code(s): G03.9 - MENINGITIS, UNSPECIFIED (9) Shingles Code(s): B02.9 - ZOSTER WITHOUT COMPLICATIONS Qualifiers: Herpes zoster complications: unspecified herpes zoster complication Qualified Code(s): B02.8 - Zoster with other complications (10) Prophylactic measure Assessment/Plan: FEN low fat/chol diet monitor electrolytes DVT heparin sq Dispo maintain as in patient isolations precautions full code discharge planning Code(s): Z29.9 - ENCOUNTER FOR PROPHYLACTIC MEASURES, UNSPECIFIED (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 Code(s): L97.529 - NON-PRESSURE CHRONIC ULCER OTH PRT LEFT FOOT W UNSP SEVERITY (13) Connective tissue disease Assessment/Plan: seen by rheumatology, appreciate consultation unlikely that diagnosis of SLE is accurate-- SHANKAR and anti-SSA positive with all other serology including ANCA negative and normal complement no need to treat with steroids, stopped yesterday Code(s): M35.9 - SYSTEMIC INVOLVEMENT OF CONNECTIVE TISSUE, UNSPECIFIED Visit type - Emergency Visit Emergency Visit: Yes ED Registration Date: 01/18/19 Care time: The patient presented to the Emergency Department on the above date and was hospitalized for further evaluation of their emergent condition. - New Patient This patient is new to me today: No - Critical Care Critical Care patient: No - Discharge Referral Referred to [facility] Med [facility].: No
--- NOTE | 2019-01-20 08:37 | PN ---
Progress Note (short form) - Note Progress Note: Neurology CHIEF COMPLAINT: headache and chills PCP: Dr. Yaya Montoya HISTORY OF PRESENT ILLNESS: Carol Trent is a 73 year old female with a past medical history of lupus (s/p lymphadenectomy, R renal stent), R BKA (s/p gangrene), PAD (b/l stents), CAD, HTN, HLD, anemia, hx of DVT who presents with a headache and chills. Patient stated that she has had a headache, photophobia, phonophobia, nausea, decreased appetite, lightheadedness, generalized weakness, neck pain since previous week. Stated that the symptoms were progressively getting worse and day before admission she developed chills and at times felt like she might have a fever. Additionally, yesterday she noted that she began to have a painful and pruritic rash on her back and underneath her breast. She took Tylenol for the pain and had limited relief. She was getting worried that her symptoms were not remitting and she was beginning to feel very weak and not able to ambulate well and came to the hospital for further evaluation. Denied chest pain, shortness of breath, abdominal pain, vomiting, numbness/tingling, confusion, trauma, loss of consciousness, cough. Denied recent sick contacts, changes in medications, recent travel. Additionally, stated she had nasal congestion for about a week or more with rhinnorhea. In the ER, found to have WBC 11.4, CRE 1.3 (baseline 1.0-1.1). CT head with no acute pathology, CXR with no acute pathology. There was a concern for meningitis and therefore lumbar puncture was performed, CSF results reviewed and demonstrated white blood cells of 8 as well as increased protein to 86, glucose of 47 (normal range). This appears to consistent with viral meningitis, differential (lymphs, neutrophils though laboratory indicates no result required) would be of benefit. Patient appears to be improving and slightly reduced chills. Rash in her right paraspinal and right substernal region appears slightly reduced. Infectious disease note reviewed, agrees with my assessment of likely viral meningitis. Patient being given supportive management as recommended. Active Medications Acetaminophen (Ofirmev Injection -) 1,000 mg IVPB Q6H PRN PRN Reason: FEVER Last Admin: 01/18/19 10:27 Dose: 1,000 mg Acetaminophen/Butalbital/Caffeine (Fioricet -) 1 tablet PO Q6H PRN PRN Reason: HEADACHE Last Admin: 01/20/19 06:04 Dose: 1 tablet Aspirin (Asa -) 81 mg PO DAILY [facility] Last Admin: 01/19/19 11:05 Dose: 81 mg Calcium Carbonate (Os-Ryan 500mg -) 1,000 mg PO DAILY [facility] Last Admin: 01/19/19 11:08 Dose: 1,000 mg Cholecalciferol (Vitamin D3 -) 1,000 unit PO DAILY [facility] Last Admin: 01/19/19 11:05 Dose: 1,000 unit Collagenase (Santyl -) 1 applic TP DAILY [facility]; Protocol Last Admin: 01/19/19 16:59 Dose: 1 applic Gabapentin (Neurontin -) 600 mg PO TID [facility] Last Admin: 01/20/19 06:02 Dose: 600 mg Heparin Sodium (Porcine) (Heparin -) 5,000 unit SQ TID [facility] Last Admin: 01/20/19 06:02 Dose: 5,000 unit Hydroxychloroquine Sulfate (Plaquenil -) 200 mg PO DAILY [facility] Last Admin: 01/19/19 11:05 Dose: 200 mg Sodium Chloride (Normal Saline -) 1,000 mls @ 75 mls/hr IV ASDIR [facility] Last Admin: 01/20/19 04:35 Dose: Not Given Acyclovir 620 mg/ Dextrose 112.4 mls @ 112.4 mls/hr IVPB BID [facility] Last Admin: 01/19/19 22:31 Dose: 112.4 mls/hr Ceftriaxone Sodium 2 gm/ (Dextrose) 100 mls @ 200 mls/hr IVPB DAILY [facility] Last Admin: 01/19/19 16:25 Dose: 200 mls/hr Labetalol HCl (Normodyne -) 200 mg PO TID [facility] Last Admin: 01/20/19 06:02 Dose: 200 mg Multivit/Ca Carb/B Cmplx/FA/Prenat (Nephro-Rebecca -) 1 tablet PO DAILY [facility] Last Admin: 01/19/19 11:06 Dose: 1 tablet Multivitamins/Minerals/Vitamin C (Tab-A-Vit -) 1 tab PO DAILY [facility] Last Admin: 01/19/19 11:05 Dose: 1 tab Nifedipine (Procardia Xl -) 60 mg PO BID [facility] Last Admin: 01/19/19 21:28 Dose: 60 mg Ranitidine HCl (Zantac -) 150 mg PO DAILY [facility] Last Admin: 01/19/19 11:05 Dose: 150 mg PHYSICAL EXAMINATION Vital Signs Period Temp Pulse Resp BP Sys/[place] Pulse Ox Last 24 Hr 98.6 F-99.2 F 83-84 18-18 126-149/56-64 GENERAL: Awake, alert, and fully oriented, in moderate acute distress. Shivering in bed. HEAD: Normal with no signs of trauma. EYES: Pupils equal, round and reactive to light, extraocular movements intact, conjunctival injection. EARS, NOSE, THROAT: Oropharynx clear without exudates. Dry mucous membranes. NECK: Neck stiffness, decreased range of motion. LUNGS: Breath sounds equal, clear to auscultation bilaterally. No wheezes, and no crackles. No accessory muscle use. HEART: Regular rate and rhythm, normal S1 and S2 without murmur, rub. ABDOMEN: Soft, nontender, not distended, normoactive bowel sounds, no guarding, no rebound, no masses. MUSCULOSKELETAL: Normal range of motion at all joints. Tender at joints when moving. UPPER EXTREMITIES: 2+ pulses, warm, well-perfused. No cyanosis. No clubbing. No peripheral edema. LOWER EXTREMITIES: 1+ pulse on L difficult to palpate, cool, well-perfused. Tender to palpation throughout, no peripheral edema. R BKA noted with prosthesis. NEUROLOGICAL: Cranial nerves II-XII intact. 4/5 muscle strength throughout, R BKA. PSYCHIATRIC: Cooperative. Good eye contact. Appropriate mood and affect. SKIN: Warm, dry, normal turgor CBCD WBC 9.4 K/mm3 (4.0-10.0) 01/19/19 09:18 RBC 3.56 M/mm3 (3.60-5.2) L 01/19/19 09:18 Hgb 9.3 GM/dL (10.7-15.3) L 01/19/19 09:18 Hct 28.3 % (32.4-45.2) L 01/19/19 09:18 MCV 79.5 fl (80-96) L 01/19/19 09:18 MCHC 32.8 g/dl (32.0-36.0) 01/19/19 09:18 RDW 18.9 % (11.6-15.6) H 01/19/19 09:18 Plt Count 378 K/MM3 (134-434) 01/19/19 09:18 MPV 8.5 fl (7.5-11.1) 01/19/19 09:18 CMP Sodium 141 mmol/L (136-145) 01/19/19 09:18 Potassium 3.6 mmol/L (3.5-5.1) 01/19/19 09:18 Chloride 108 mmol/L (98-107) H 01/19/19 09:18 Carbon Dioxide 25 mmol/L (21-32) 01/19/19 09:18 Anion Gap 9 MMOL/L (8-16) 01/19/19 09:18 BUN 11.2 mg/dL (7-18) 01/19/19 09:18 Creatinine 1.2 mg/dL (0.55-1.3) 01/19/19 09:18 Random Glucose 101 mg/dL (74-106) 01/19/19 09:18 Calcium 8.5 mg/dL (8.5-10.1) 01/19/19 09:18 Total Bilirubin 0.5 mg/dL (0.2-1) 01/19/19 09:18 AST 13 U/L (15-37) L 01/19/19 09:18 ALT 14 U/L (13-61) 01/19/19 09:18 Alkaline Phosphatase 67 U/L (45-117) 01/19/19 09:18 Total Protein 6.8 g/dl (6.4-8.2) 01/19/19 09:18 Albumin 2.7 g/dl (3.4-5.0) L 01/19/19 09:18 ASSESSMENT/PLAN: 73 year old female with a past medical history of lupus (s/p lymphadenectomy, R renal stent), R BKA (s/p gangrene), PAD (b/l stents), CAD, HTN, HLD, anemia, hx of DVT who presents with a headache and chills. Patient stated that she has had a headache, photophobia, phonophobia, nausea, decreased appetite, lightheadedness, generalized weakness, neck pain since previous week. Stated that the symptoms were progressively getting worse and day before admission she developed chills and at times felt like she might have a fever. Additionally, yesterday she noted that she began to have a painful and pruritic rash on her back and underneath her breast. She took Tylenol for the pain and had limited relief. She was getting worried that her symptoms were not remitting and she was beginning to feel very weak and not able to ambulate well and came to the hospital for further evaluation. Denied chest pain, shortness of breath, abdominal pain, vomiting, numbness/tingling, confusion, trauma, loss of consciousness, cough. Denied recent sick contacts, changes in medications, recent travel. Additionally, stated she had nasal congestion for about a week or more with rhinnorhea. In the ER, found to have WBC 11.4, CRE 1.3 (baseline 1.0-1.1). CT head with no acute pathology, CXR with no acute pathology. There was a concern for meningitis and therefore lumbar puncture was performed, CSF results reviewed and demonstrated white blood cells of 8 as well as increased protein to 86, glucose of 47 (normal range). This appears to consistent with viral meningitis, differential (lymphs, neutrophils though laboratory indicates no result required) would be of benefit. Patient appears to be improving and slightly reduced chills. Rash in her right paraspinal and right substernal region appears slightly reduced. Infectious disease note reviewed, agrees with my assessment of likely viral meningitis. Patient being given supportive management as recommended. IV hydration as needed. follow-up CSF results, maintain isolation precautions and protocol. Monitor blood pressure, maintain normotensive range, bedrest needed, DVT ppx as patient not ambulating.
[2019-01-20] MEDS ORDERED: DEXTROSE 5%-WATER 100 ML IVPB ONE (10:14)
[2019-01-20 11:00] LABS: BASO % 1.4 % (0-2.0); EOS % 4.4 % (0-4.5); HEMATOCRIT 28.8 % (32.4-45.2); HEMOGLOBIN 9.3 GM/dL (10.7-15.3); LYMPH % 24.2 % (8-40); MCH 25.6 pg (25.7-33.7); MCHC 32.2 g/dl (32.0-36.0); MEAN CELL VOLUME 79.6 fl (80-96); MONO % 11.7 % (3.8-10.2); NEUT % 58.3 % (42.8-82.8); PLATELET COUNT 360 K/MM3 (134-434); RBC 3.61 M/mm3 (3.60-5.2); RDW 18.7 % (11.6-15.6); WHITE BLOOD COUNT 7.6 K/mm3 (4.0-10.0)
[2019-01-20] MEDS: ACYCLOVIR INJECTION 620 MG in DEXTROSE 5%-WATER - 100 ML IVPB SCH ×2 (11:29→22:49)
[2019-01-20] MEDS: RANITIDINE HCL 150 MG TABLET (FP) PO SCH (11:29)
[2019-01-20] MEDS: HYDROXYCHLOROQUINE SO4 200 MG TABLET (FP) PO SCH (11:29)
[2019-01-20] MEDS: MULTIVITAMINS (DAILY MVI) TABLET (FP) PO SCH (11:29)
[2019-01-20] MEDS: VITAMIN B COMP W-C 1 EA TABLET PO SCH (11:29)
[2019-01-20] MEDS: CHOLECALCIFEROL (VIT D3) 1,000 UNIT (25 MCG) TABLET PO SCH (11:29)
[2019-01-20] MEDS: ASPIRIN 81 MG CHEWABLE TABLETS PO SCH (11:29)
[2019-01-20] MEDS: NIFEdipine E.R 60 MG TABLET (UD) PO SCH ×2 (11:29→22:15)
[2019-01-20] MEDS ORDERED: PT OWN MED DRAWER 7, Y5N ONE ×2 (11:31→20:56)
[2019-01-20] MEDS: CALCIUM (OYSTER SHELL) 500 MG TABLET (FP) PO SCH (11:32)
--- NOTE | 2019-01-20 11:32 | PN ---
Progress Note, Physician History of Present Illness: stable doing well cx result noted feels a bit depressed - Current Medication List Current Medications: Active Medications Acetaminophen (Ofirmev Injection -) 1,000 mg IVPB Q6H PRN PRN Reason: FEVER Last Admin: 01/18/19 10:27 Dose: 1,000 mg Acetaminophen/Butalbital/Caffeine (Fioricet -) 1 tablet PO Q6H PRN PRN Reason: HEADACHE Last Admin: 01/20/19 06:04 Dose: 1 tablet Aspirin (Asa -) 81 mg PO DAILY [facility] Last Admin: 01/19/19 11:05 Dose: 81 mg Calcium Carbonate (Os-Ryan 500mg -) 1,000 mg PO DAILY [facility] Last Admin: 01/19/19 11:08 Dose: 1,000 mg Cholecalciferol (Vitamin D3 -) 1,000 unit PO DAILY [facility] Last Admin: 01/19/19 11:05 Dose: 1,000 unit Collagenase (Santyl -) 1 applic TP DAILY [facility]; Protocol Last Admin: 01/19/19 16:59 Dose: 1 applic Gabapentin (Neurontin -) 600 mg PO TID [facility] Last Admin: 01/20/19 06:02 Dose: 600 mg Heparin Sodium (Porcine) (Heparin -) 5,000 unit SQ TID [facility] Last Admin: 01/20/19 06:02 Dose: 5,000 unit Hydroxychloroquine Sulfate (Plaquenil -) 200 mg PO DAILY [facility] Last Admin: 01/19/19 11:05 Dose: 200 mg Sodium Chloride (Normal Saline -) 1,000 mls @ 75 mls/hr IV ASDIR [facility] Last Admin: 01/20/19 04:35 Dose: Not Given Acyclovir 620 mg/ Dextrose 112.4 mls @ 112.4 mls/hr IVPB BID [facility] Last Admin: 01/19/19 22:31 Dose: 112.4 mls/hr Labetalol HCl (Normodyne -) 200 mg PO TID [facility] Last Admin: 01/20/19 06:02 Dose: 200 mg Multivit/Ca Carb/B Cmplx/FA/Prenat (Nephro-Rebecca -) 1 tablet PO DAILY [facility] Last Admin: 01/19/19 11:06 Dose: 1 tablet Multivitamins/Minerals/Vitamin C (Tab-A-Vit -) 1 tab PO DAILY [facility] Last Admin: 01/19/19 11:05 Dose: 1 tab Nifedipine (Procardia Xl -) 60 mg PO BID [facility] Last Admin: 01/19/19 21:28 Dose: 60 mg Ranitidine HCl (Zantac -) 150 mg PO DAILY [facility] Last Admin: 01/19/19 11:05 Dose: 150 mg - Objective Vital Signs: Vital Signs Temperature 98.6 F 01/20/19 05:00 Pulse Rate 84 01/20/19 05:00 Respiratory Rate 18 01/20/19 05:00 Blood Pressure 149/64 01/20/19 05:00 O2 Sat by Pulse Oximetry (%) 97 01/18/19 21:00 Constitutional: Yes: No Distress, Calm Cardiovascular: Yes: S1, S2 Respiratory: Yes: Regular, CTA Bilaterally Gastrointestinal: Yes: Normal Bowel Sounds, Soft Musculoskeletal: Yes: WNL Extremities: Yes: Other Integumentary: Yes: Other (rash drying) Neurological: Yes: Alert, Oriented Psychiatric: Yes: Alert, Oriented Labs: CBC, BMP 01/20/19 10:43 INR, PTT INR 1.07 (0.83-1.09) 01/17/19 20:20 Assessment/Plan patient coming in with symptoma of headache,ams photophobia all the work up noted i think patient might have viaral mentingitis also herepes rash noted plan continue acylovir await for all results hydration
[2019-01-20] MEDS: CEFTRIAXONE 2 GM in DEXTROSE 5%-WATER 100 ML IVPB SCH (11:33)
[2019-01-20 11:46] LABS: ALBUMIN 2.7 g/dl (3.4-5.0); BILIRUBIN,TOTAL 0.1 mg/dL (0.2-1); CALCIUM 8.7 mg/dL (8.5-10.1); CREATININE 1.3 mg/dL (0.55-1.3); MAGNESIUM 2.4 mg/dL (1.8-2.4); POTASSIUM 3.5 mmol/L (3.5-5.1); TOT PROT 6.8 g/dl (6.4-8.2)
[2019-01-20] MEDS: COLLAGENASE CLOSTRIDIUM HIST. 30 GRAMS TUBE TP SCH (13:26)
[2019-01-20] MEDS ORDERED: ACETAMINOPHEN 325 MG TABLET (FP) PO PRN (21:30)
[2019-01-20] MEDS: ACETAMINOPHEN 325 MG TABLET (FP) PO PRN (22:42)
[2019-01-21] MEDS: HEPARIN NA (PORCINE) 5,000 UNITS/ML 1ML VIAL SQ SCH ×3 (06:50→23:02)
[2019-01-21] MEDS: ACETAMINOPHEN 325 MG TABLET (FP) PO PRN ×2 (06:51→23:02)
[2019-01-21] MEDS: SODIUM CHLORIDE 1,000 ML IV SCH (06:52)
[2019-01-21] MEDS: LABETALOL HCL 100 MG TABLET (FP) PO SCH ×3 (06:52→23:02)
[2019-01-21 06:59] LABS: BASO % 1.5 % (0-2.0); EOS % 2.5 % (0-4.5); HEMATOCRIT 29.9 % (32.4-45.2); HEMOGLOBIN 9.6 GM/dL (10.7-15.3); LYMPH % 18.4 % (8-40); MCH 25.6 pg (25.7-33.7); MCHC 32.1 g/dl (32.0-36.0); MEAN PLT VOLUME 8.7 fl (7.5-11.1); MONO % 11.1 % (3.8-10.2); NEUT % 66.5 % (42.8-82.8); PLATELET COUNT 360 K/MM3 (134-434); RBC 3.74 M/mm3 (3.60-5.2); RDW 18.8 % (11.6-15.6); WHITE BLOOD COUNT 12.2 K/mm3 (4.0-10.0)
[2019-01-21] MEDS: GABAPENTIN 300 MG CAPSULE (FP) PO SCH ×3 (07:00→23:02)
--- NOTE | 2019-01-21 08:08 | PN ---
Progress Note (short form) - Note Progress Note: Neurology CHIEF COMPLAINT: headache and chills PCP: Dr. Yaya Montoya HISTORY OF PRESENT ILLNESS: Carol Trent is a 73 year old female with a past medical history of lupus (s/p lymphadenectomy, R renal stent), R BKA (s/p gangrene), PAD (b/l stents), CAD, HTN, HLD, anemia, hx of DVT who presents with a headache and chills. Patient stated that she has had a headache, photophobia, phonophobia, nausea, decreased appetite, lightheadedness, generalized weakness, neck pain since previous week. Stated that the symptoms were progressively getting worse and day before admission she developed chills and at times felt like she might have a fever. Additionally, yesterday she noted that she began to have a painful and pruritic rash on her back and underneath her breast. She took Tylenol for the pain and had limited relief. She was getting worried that her symptoms were not remitting and she was beginning to feel very weak and not able to ambulate well and came to the hospital for further evaluation. Denied chest pain, shortness of breath, abdominal pain, vomiting, numbness/tingling, confusion, trauma, loss of consciousness, cough. Denied recent sick contacts, changes in medications, recent travel. Additionally, stated she had nasal congestion for about a week or more with rhinnorhea. In the ER, found to have WBC 11.4, CRE 1.3 (baseline 1.0-1.1). CT head with no acute pathology, CXR with no acute pathology. There was a concern for meningitis and therefore lumbar puncture was performed, CSF results reviewed and demonstrated white blood cells of 8 as well as increased protein to 86, glucose of 47 (normal range). This appears to consistent with viral meningitis. Rash in her right paraspinal and right substernal region appears slightly reduced. Patient reports being febrile this AM and ill appearing. Will require follow-up from infectious disease specialist to evaluate medication regimen. Active Medications Acetaminophen (Tylenol -) 650 mg PO Q4H PRN PRN Reason: Fever Or Pain Last Admin: 01/21/19 06:51 Dose: 650 mg Acetaminophen/Butalbital/Caffeine (Fioricet -) 1 tablet PO Q6H PRN PRN Reason: HEADACHE Last Admin: 01/20/19 06:04 Dose: 1 tablet Aspirin (Asa -) 81 mg PO DAILY [facility] Last Admin: 01/20/19 11:29 Dose: 81 mg Calcium Carbonate (Os-Ryan 500mg -) 1,000 mg PO DAILY [facility] Last Admin: 01/20/19 11:32 Dose: 1,000 mg Cholecalciferol (Vitamin D3 -) 1,000 unit PO DAILY [facility] Last Admin: 01/20/19 11:29 Dose: 1,000 unit Collagenase (Santyl -) 1 applic TP DAILY [facility]; Protocol Last Admin: 01/20/19 13:26 Dose: 1 applic Gabapentin (Neurontin -) 900 mg PO TID [facility] Last Admin: 01/21/19 07:00 Dose: 900 mg Heparin Sodium (Porcine) (Heparin -) 5,000 unit SQ TID [facility] Last Admin: 01/21/19 06:50 Dose: 5,000 unit Hydroxychloroquine Sulfate (Plaquenil -) 200 mg PO DAILY [facility] Last Admin: 01/20/19 11:29 Dose: 200 mg Sodium Chloride (Normal Saline -) 1,000 mls @ 75 mls/hr IV ASDIR [facility] Last Admin: 01/21/19 06:52 Dose: 75 mls/hr Acyclovir 620 mg/ Dextrose 112.4 mls @ 112.4 mls/hr IVPB BID [facility] Last Admin: 01/20/19 22:49 Dose: 112.4 mls/hr Labetalol HCl (Normodyne -) 200 mg PO TID [facility] Last Admin: 01/21/19 06:52 Dose: 200 mg Multivit/Ca Carb/B Cmplx/FA/Prenat (Nephro-Rebecca -) 1 tablet PO DAILY [facility] Last Admin: 01/20/19 11:29 Dose: 1 tablet Multivitamins/Minerals/Vitamin C (Tab-A-Vit -) 1 tab PO DAILY [facility] Last Admin: 01/20/19 11:29 Dose: 1 tab Nifedipine (Procardia Xl -) 60 mg PO BID [facility] Last Admin: 01/20/19 22:15 Dose: 60 mg Ranitidine HCl (Zantac -) 150 mg PO DAILY [facility] Last Admin: 01/20/19 11:29 Dose: 150 mg PHYSICAL EXAMINATION Vital Signs Period Temp Pulse Resp BP Sys/[place] Pulse Ox Last 24 Hr 98.4 F-101.8 F 81-85 18-20 144-183/63-80 GENERAL: Awake, alert, and fully oriented, in moderate acute distress. Shivering in bed. HEAD: Normal with no signs of trauma. EYES: Pupils equal, round and reactive to light, extraocular movements intact, conjunctival injection. EARS, NOSE, THROAT: Oropharynx clear without exudates. Dry mucous membranes. NECK: Neck stiffness, decreased range of motion. LUNGS: Breath sounds equal, clear to auscultation bilaterally. No wheezes, and no crackles. No accessory muscle use. HEART: Regular rate and rhythm, normal S1 and S2 without murmur, rub. ABDOMEN: Soft, nontender, not distended, normoactive bowel sounds, no guarding, no rebound, no masses. MUSCULOSKELETAL: Normal range of motion at all joints. Tender at joints when moving. UPPER EXTREMITIES: 2+ pulses, warm, well-perfused. No cyanosis. No clubbing. No peripheral edema. LOWER EXTREMITIES: 1+ pulse on L difficult to palpate, cool, well-perfused. Tender to palpation throughout, no peripheral edema. R BKA noted with prosthesis. NEUROLOGICAL: Cranial nerves II-XII intact. 4/5 muscle strength throughout, R BKA. PSYCHIATRIC: Cooperative. Good eye contact. Appropriate mood and affect. SKIN: Warm, dry, normal turgor CBCD WBC 12.2 K/mm3 (4.0-10.0) H 01/21/19 06:05 RBC 3.74 M/mm3 (3.60-5.2) 01/21/19 06:05 Hgb 9.6 GM/dL (10.7-15.3) L 01/21/19 06:05 Hct 29.9 % (32.4-45.2) L 01/21/19 06:05 MCV 80.0 fl (80-96) 01/21/19 06:05 MCHC 32.1 g/dl (32.0-36.0) 01/21/19 06:05 RDW 18.8 % (11.6-15.6) H 01/21/19 06:05 Plt Count 360 K/MM3 (134-434) 01/21/19 06:05 MPV 8.7 fl (7.5-11.1) 01/21/19 06:05 CMP Sodium 140 mmol/L (136-145) 01/20/19 10:43 Potassium 3.5 mmol/L (3.5-5.1) 01/20/19 10:43 Chloride 107 mmol/L (98-107) 01/20/19 10:43 Carbon Dioxide 27 mmol/L (21-32) 01/20/19 10:43 Anion Gap 7 MMOL/L (8-16) L 01/20/19 10:43 BUN 16.0 mg/dL (7-18) 01/20/19 10:43 Creatinine 1.3 mg/dL (0.55-1.3) 01/20/19 10:43 Random Glucose 147 mg/dL (74-106) H 01/20/19 10:43 Calcium 8.7 mg/dL (8.5-10.1) 01/20/19 10:43 Total Bilirubin 0.1 mg/dL (0.2-1) L 01/20/19 10:43 AST 13 U/L (15-37) L 01/20/19 10:43 ALT 15 U/L (13-61) 01/20/19 10:43 Alkaline Phosphatase 67 U/L (45-117) 01/20/19 10:43 Total Protein 6.8 g/dl (6.4-8.2) 01/20/19 10:43 Albumin 2.7 g/dl (3.4-5.0) L 01/20/19 10:43 ASSESSMENT/PLAN: 73 year old female with a past medical history of lupus (s/p lymphadenectomy, R renal stent), R BKA (s/p gangrene), PAD (b/l stents), CAD, HTN, HLD, anemia, hx of DVT who presents with a headache and chills. Patient stated that she has had a headache, photophobia, phonophobia, nausea, decreased appetite, lightheadedness, generalized weakness, neck pain since previous week. Stated that the symptoms were progressively getting worse and day before admission she developed chills and at times felt like she might have a fever. Additionally, yesterday she noted that she began to have a painful and pruritic rash on her back and underneath her breast. She took Tylenol for the pain and had limited relief. She was getting worried that her symptoms were not remitting and she was beginning to feel very weak and not able to ambulate well and came to the hospital for further evaluation. Denied chest pain, shortness of breath, abdominal pain, vomiting, numbness/tingling, confusion, trauma, loss of consciousness, cough. Denied recent sick contacts, changes in medications, recent travel. Additionally, stated she had nasal congestion for about a week or more with rhinnorhea. In the ER, found to have WBC 11.4, CRE 1.3 (baseline 1.0-1.1). CT head with no acute pathology, CXR with no acute pathology. There was a concern for meningitis and therefore lumbar puncture was performed, CSF results reviewed and demonstrated white blood cells of 8 as well as increased protein to 86, glucose of 47 (normal range). This appears to consistent with viral meningitis, Rash in her right paraspinal and right substernal region appears slightly reduced. Patient reports being febrile this AM and ill appearing. Will require follow-up from infectious disease specialist to evaluate medication regimen. Patient being given supportive management as recommended. IV hydration as needed. follow-up CSF results, maintain isolation precautions and protocol. Monitor blood pressure, maintain normotensive range, bedrest needed, DVT ppx as patient not ambulating.
--- NOTE | 2019-01-21 08:54 | PN ---
Progress Note, Physician Chief Complaint: complaints of headaches remain,had diarrhea with am, pain under right breast History of Present Illness: Carol Trent is a 73 year old female with a past medical history of lupus (s/p lymphadenectomy, R renal stent), R BKA (s/p gangrene), PAD (b/l stents), CAD, HTN, HLD, anemia, hx of DVT who presents with a headache and chills. Patient stated that she has had a headache, photophobia, phonophobia, nausea, decreased appetite, lightheadedness, generalized weakness, neck pain since . Stated that the symptoms were progressively getting worse and day before admission she developed chills and at times felt like she might have a fever. Additionally, yesterday she noted that she began to have a painful and pruritic rash on her back and underneath her breast. She took Tylenol for the pain and had limited relief. She was getting worried that her symptoms were not remitting and she was beginning to feel very weak and not able to ambulate well and came to the hospital for further evaluation. Denied chest pain, shortness of breath, abdominal pain, vomiting, numbness/tingling, confusion, trauma, loss of consciousness, cough. Denied recent sick contacts, changes in medications, recent travel. Additionally, stated she had nasal congestion for about a week or more with rhinnorhea. PAST SURGICAL HISTORY: R kidney stent lymphadenectomy R BKA bilateral LE stents - Current Medication List Current Medications: Active Medications Acetaminophen (Tylenol -) 650 mg PO Q4H PRN PRN Reason: Fever Or Pain Last Admin: 01/21/19 06:51 Dose: 650 mg Acetaminophen/Butalbital/Caffeine (Fioricet -) 1 tablet PO Q6H PRN PRN Reason: HEADACHE Last Admin: 01/20/19 06:04 Dose: 1 tablet Aspirin (Asa -) 81 mg PO DAILY [facility] Last Admin: 01/20/19 11:29 Dose: 81 mg Calcium Carbonate (Os-Ryan 500mg -) 1,000 mg PO DAILY [facility] Last Admin: 01/20/19 11:32 Dose: 1,000 mg Cholecalciferol (Vitamin D3 -) 1,000 unit PO DAILY [facility] Last Admin: 01/20/19 11:29 Dose: 1,000 unit Collagenase (Santyl -) 1 applic TP DAILY [facility]; Protocol Last Admin: 01/20/19 13:26 Dose: 1 applic Gabapentin (Neurontin -) 900 mg PO TID [facility] Last Admin: 01/21/19 07:00 Dose: 900 mg Heparin Sodium (Porcine) (Heparin -) 5,000 unit SQ TID [facility] Last Admin: 01/21/19 06:50 Dose: 5,000 unit Hydroxychloroquine Sulfate (Plaquenil -) 200 mg PO DAILY [facility] Last Admin: 01/20/19 11:29 Dose: 200 mg Sodium Chloride (Normal Saline -) 1,000 mls @ 75 mls/hr IV ASDIR [facility] Last Admin: 01/21/19 06:52 Dose: 75 mls/hr Acyclovir 620 mg/ Dextrose 112.4 mls @ 112.4 mls/hr IVPB BID [facility] Last Admin: 01/20/19 22:49 Dose: 112.4 mls/hr Labetalol HCl (Normodyne -) 200 mg PO TID [facility] Last Admin: 01/21/19 06:52 Dose: 200 mg Multivit/Ca Carb/B Cmplx/FA/Prenat (Nephro-Rebecca -) 1 tablet PO DAILY [facility] Last Admin: 01/20/19 11:29 Dose: 1 tablet Multivitamins/Minerals/Vitamin C (Tab-A-Vit -) 1 tab PO DAILY [facility] Last Admin: 01/20/19 11:29 Dose: 1 tab Nifedipine (Procardia Xl -) 60 mg PO BID [facility] Last Admin: 01/20/19 22:15 Dose: 60 mg Ranitidine HCl (Zantac -) 150 mg PO DAILY [facility] Last Admin: 01/20/19 11:29 Dose: 150 mg - Objective Vital Signs: Vital Signs Temperature 100.3 F H 01/21/19 06:00 Pulse Rate 85 01/21/19 06:00 Respiratory Rate 20 01/21/19 06:00 Blood Pressure 151/63 01/21/19 06:00 O2 Sat by Pulse Oximetry (%) 97 01/18/19 21:00 Additional Findings/Remarks: Constitutional: Yes: Well Nourished, Mild Distress Eyes: Yes: WNL, Conjunctiva Clear HENT: Yes: WNL, Atraumatic, Normocephalic Neck: Yes: Tenderness (to neck) Cardiovascular: Yes: WNL, Regular Rate and Rhythm Respiratory: Yes: WNL, Regular, CTA Bilaterally Gastrointestinal: Yes: WNL, Normal Bowel Sounds ...Rectal Exam: Yes: Deferred Genitourinary: Yes: WNL Breast(s): Yes: Other (lesions as described) Musculoskeletal: Yes: Joint Stiffness, Muscle Pain Extremities: Yes: Other (right BKA, wound to Left foot) Edema: No Integumentary: Yes: Other (vesicular rash on back overlapping 2 dermatomes on the R side. Noted vesicular rash below the breast on the R side. L foot ulcer on medial aspect of foot observed.)) Neurological: Yes: WNL, Alert, Oriented ...Motor Strength: WNL Psychiatric: Yes: WNL Labs: Labs: CBC, BMP 01/21/19 06:05 01/20/19 10:43 INR, PTT INR 1.07 (0.83-1.09) 01/17/19 20:20 Problem List - Problems (1) CAD (coronary artery disease) Assessment/Plan: c/w asa Code(s): I25.10 - ATHSCL HEART DISEASE OF [place] CORONARY ARTERY W/O ANG PCTRS (2) History of DVT (deep vein thrombosis) Assessment/Plan: c/w heparin while non ambulatory Code(s): Z86.718 - PERSONAL HISTORY OF OTHER VENOUS THROMBOSIS AND EMBOLISM (3) PVD (peripheral vascular disease) Assessment/Plan: s/p R BKA Code(s): I73.9 - PERIPHERAL VASCULAR DISEASE, UNSPECIFIED (4) Amputated right leg Code(s): Z89.611 - ACQUIRED ABSENCE OF RIGHT LEG ABOVE KNEE (5) Anemia Assessment/Plan: hgb 9.6 continue to trend Code(s): D64.9 - ANEMIA, UNSPECIFIED Qualifiers: Anemia type: unspecified type Qualified Code(s): D64.9 - Anemia, unspecified (6) HTN (hypertension) Assessment/Plan: normotensive c/w home medications-labetolol,procardia Code(s): I10 - ESSENTIAL (PRIMARY) HYPERTENSION Qualifiers: Hypertension type: secondary to endocrine disorders Qualified Code(s): I15.2 - Hypertension secondary to endocrine disorders (7) Hyperlipidemia Assessment/Plan: c/w low fat/chol diet Code(s): E78.5 - HYPERLIPIDEMIA, UNSPECIFIED (8) Meningitis Assessment/Plan: - CSF preliminary showing 8 WBC (only lymphocytes), elevated protein count, normal glucose, consistent with possible viral meningitis - Viral panel for HSV and VZV in CSF pending - continue acyclovir 620mg q8h as per ID - continue ceftriaxone/ vanco dc'd by ID c/w isolation and airborne precautions - serum and CSF cryptococcal antigen pending -appreciate ID consult, Dr. Cervantes -appreciate neurology consultation-Dr Cabrera - respiratory viral panel pending Code(s): G03.9 - MENINGITIS, UNSPECIFIED (9) Shingles Assessment/Plan: c/w acyclovir until lesions are resulted c/o post herpatic pain c/w with gabapentin at increased dose add roxicodone for severe pain-pt had codiene allergy but has tolerate percocet in past Code(s): B02.9 - ZOSTER WITHOUT COMPLICATIONS Qualifiers: Herpes zoster complications: unspecified herpes zoster complication Qualified Code(s): B02.8 - Zoster with other complications (10) Prophylactic measure Assessment/Plan: FEN low fat/chol diet monitor electrolytes DVT heparin sq Dispo maintain as in patient isolations precautions full code discharge planning Code(s): Z29.9 - ENCOUNTER FOR PROPHYLACTIC MEASURES, UNSPECIFIED (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 Code(s): L97.529 - NON-PRESSURE CHRONIC ULCER OTH PRT LEFT FOOT W UNSP SEVERITY (13) Connective tissue disease Assessment/Plan: seen by rheumatology, appreciate consultation unlikely that diagnosis of SLE is accurate-- SHANKAR and anti-SSA positive with all other serology including ANCA negative and normal complement no need to treat with steroids, stopped yesterday Code(s): M35.9 - SYSTEMIC INVOLVEMENT OF CONNECTIVE TISSUE, UNSPECIFIED (14) Diarrhea Assessment/Plan: 4 episode of diarrhea this morning send cdif, stool for culture history of c dif in past Code(s): R19.7 - DIARRHEA, UNSPECIFIED (15) Fever Assessment/Plan: T 100.3 today sent stool for cdif/culture given recent history of cdif Code(s): R50.9 - FEVER, UNSPECIFIED Qualifiers: Fever type: unspecified Qualified Code(s): R50.9 - Fever, unspecified Visit type - Emergency Visit Emergency Visit: Yes ED Registration Date: 01/18/19 Care time: The patient presented to the Emergency Department on the above date and was hospitalized for further evaluation of their emergent condition. - New Patient This patient is new to me today: No - Critical Care Critical Care patient: No - Discharge Referral Referred to [facility] Med P.C.: No
[2019-01-21 10:28] LABS: ANISOCYTOSIS 1+; MACROCYTOSIS 0; PLATELET ESTIMATE NORMAL
[2019-01-21] MEDS ORDERED: PT OWN MED DRAWER 7, Y5N ONE ×2 (10:44→22:49)
[2019-01-21] MEDS: CHOLECALCIFEROL (VIT D3) 1,000 UNIT (25 MCG) TABLET PO SCH (10:52)
[2019-01-21] MEDS: ACYCLOVIR INJECTION 620 MG in DEXTROSE 5%-WATER - 100 ML IVPB SCH ×2 (10:52→23:03)
[2019-01-21] MEDS: RANITIDINE HCL 150 MG TABLET (FP) PO SCH (10:52)
[2019-01-21] MEDS: ASPIRIN 81 MG CHEWABLE TABLETS PO SCH (10:52)
[2019-01-21] MEDS: VITAMIN B COMP W-C 1 EA TABLET PO SCH (10:52)
[2019-01-21] MEDS: MULTIVITAMINS (DAILY MVI) TABLET (FP) PO SCH (10:52)
[2019-01-21] MEDS: CALCIUM (OYSTER SHELL) 500 MG TABLET (FP) PO SCH (10:52)
[2019-01-21] MEDS: HYDROXYCHLOROQUINE SO4 200 MG TABLET (FP) PO SCH (10:52)
[2019-01-21] MEDS: NIFEdipine E.R 60 MG TABLET (UD) PO SCH ×2 (10:52→23:02)
[2019-01-21] MEDS: COLLAGENASE CLOSTRIDIUM HIST. 30 GRAMS TUBE TP SCH (10:53)
--- NOTE | 2019-01-21 22:27 | PN ---
Progress Note, Physician History of Present Illness: Pt noted to have fever last night 101.8 and low grade early am. Reports multiple loose BMs since last night. Denies abd pain/n/v, shortness of breath, dysuria. Still has mild h/a but no significant neck stiffness. Fully alert/ responsive. - Current Medication List Current Medications: Active Medications Acetaminophen (Tylenol -) 650 mg PO Q4H PRN PRN Reason: Fever Or Pain Last Admin: 01/21/19 06:51 Dose: 650 mg Aspirin (Asa -) 81 mg PO DAILY [facility] Last Admin: 01/21/19 10:52 Dose: 81 mg Calcium Carbonate (Os-Ryan 500mg -) 1,000 mg PO DAILY [facility] Last Admin: 01/21/19 10:52 Dose: 1,000 mg Cholecalciferol (Vitamin D3 -) 1,000 unit PO DAILY [facility] Last Admin: 01/21/19 10:52 Dose: 1,000 unit Collagenase (Santyl -) 1 applic TP DAILY [facility]; Protocol Last Admin: 01/21/19 10:53 Dose: 1 applic Gabapentin (Neurontin -) 900 mg PO TID [facility] Last Admin: 01/21/19 14:30 Dose: 900 mg Heparin Sodium (Porcine) (Heparin -) 5,000 unit SQ TID [facility] Last Admin: 01/21/19 14:30 Dose: 5,000 unit Hydroxychloroquine Sulfate (Plaquenil -) 200 mg PO DAILY [facility] Last Admin: 01/21/19 10:52 Dose: 200 mg Sodium Chloride (Normal Saline -) 1,000 mls @ 75 mls/hr IV ASDIR [facility] Last Admin: 01/21/19 06:52 Dose: 75 mls/hr Acyclovir 620 mg/ Dextrose 112.4 mls @ 112.4 mls/hr IVPB BID [facility] Last Admin: 01/21/19 10:52 Dose: 112.4 mls/hr Labetalol HCl (Normodyne -) 200 mg PO TID [facility] Last Admin: 01/21/19 14:30 Dose: 200 mg Multivit/Ca Carb/B Cmplx/FA/Prenat (Nephro-Rebecca -) 1 tablet PO DAILY [facility] Last Admin: 01/21/19 10:52 Dose: 1 tablet Multivitamins/Minerals/Vitamin C (Tab-A-Vit -) 1 tab PO DAILY [facility] Last Admin: 01/21/19 10:52 Dose: 1 tab Nifedipine (Procardia Xl -) 60 mg PO BID [facility] Last Admin: 01/21/19 10:52 Dose: 60 mg Ranitidine HCl (Zantac -) 150 mg PO DAILY [facility] Last Admin: 01/21/19 10:52 Dose: 150 mg - Objective Vital Signs: Vital Signs Temperature 98.4 F 01/21/19 17:24 Pulse Rate 55 L 01/21/19 17:24 Respiratory Rate 18 01/21/19 17:24 Blood Pressure 147/55 L 01/21/19 17:24 O2 Sat by Pulse Oximetry (%) 97 01/18/19 21:00 Constitutional: Yes: No Distress, Calm Eyes: Yes: Conjunctiva Clear Neck: Yes: Supple Cardiovascular: Yes: Regular Rate and Rhythm Respiratory: Yes: CTA Bilaterally Gastrointestinal: Yes: Normal Bowel Sounds, Soft Genitourinary: Yes: WNL Integumentary: Yes: Rash (vesicular rash on back/chest) Neurological: Yes: Alert, Oriented Labs: CBC, BMP 01/21/19 06:05 01/20/19 10:43 INR, PTT INR 1.07 (0.83-1.09) 01/17/19 20:20 Laboratory Results - last 24 hr 01/18/19 01/19/19 01/21/19 01:32 06:10 06:05 WBC 12.2 H RBC 3.74 Hgb 9.6 L Hct 29.9 L MCV 80.0 MCH 25.6 L MCHC 32.1 RDW 18.8 H Plt Count 360 MPV 8.7 Absolute Neuts (auto) 8.1 H Neutrophils % 66.5 Neutrophils % (Manual) 66.3 Band Neutrophils % 0.0 Lymphocytes % 18.4 D Lymphocytes % (Manual) 18.4 Monocytes % 11.1 H Monocytes % (Manual) 10 Eosinophils % 2.5 Eosinophils % (Manual) 4.1 D Basophils % 1.5 Basophils % (Manual) 1.0 D Myelocytes % (Man) 0 Promyelocytes % (Man) 0 Blast Cells % (Manual) 0 Nucleated RBC % 0 Metamyelocytes 0 D Hypochromia 0 Platelet Estimate Normal Polychromasia 1+ Poikilocytosis 0 Anisocytosis 1+ Microcytosis 0 Macrocytosis 0 Magnesium SHANKAR Screen Negative Tot Complement (CH50) 51 HSV I DNA Quant (PCR) Negative HSV II DNA Quant (PCR) Negative 01/21/19 06:05 WBC RBC Hgb Hct MCV MCH MCHC RDW Plt Count MPV Absolute Neuts (auto) Neutrophils % Neutrophils % (Manual) Band Neutrophils % Lymphocytes % Lymphocytes % (Manual) Monocytes % Monocytes % (Manual) Eosinophils % Eosinophils % (Manual) Basophils % Basophils % (Manual) Myelocytes % (Man) Promyelocytes % (Man) Blast Cells % (Manual) Nucleated RBC % Metamyelocytes Hypochromia Platelet Estimate Polychromasia Poikilocytosis Anisocytosis Microcytosis Macrocytosis Magnesium 2.1 SHANKAR Screen Tot Complement (CH50) HSV I DNA Quant (PCR) HSV II DNA Quant (PCR) HSV PCR neg VZV pending blood cultures neg 24h C.diff/stool cultures sent Urine culture pending - ....Imaging X-ray: Report Reviewed Problem List - Problems (1) CAD (coronary artery disease) Code(s): I25.10 - ATHSCL HEART DISEASE OF [place] CORONARY ARTERY W/O ANG PCTRS (2) Connective tissue disease Code(s): M35.9 - SYSTEMIC INVOLVEMENT OF CONNECTIVE TISSUE, UNSPECIFIED (3) Diarrhea Code(s): R19.7 - DIARRHEA, UNSPECIFIED (4) Shingles Code(s): B02.9 - ZOSTER WITHOUT COMPLICATIONS Qualifiers: Herpes zoster complications: unspecified herpes zoster complication Qualified Code(s): B02.8 - Zoster with other complications (5) Fever Code(s): R50.9 - FEVER, UNSPECIFIED Qualifiers: Fever type: unspecified Qualified Code(s): R50.9 - Fever, unspecified (6) PVD (peripheral vascular disease) Code(s): I73.9 - PERIPHERAL VASCULAR DISEASE, UNSPECIFIED (7) Amputated right leg Code(s): Z89.611 - ACQUIRED ABSENCE OF RIGHT LEG ABOVE KNEE (8) HTN (hypertension) Code(s): I10 - ESSENTIAL (PRIMARY) HYPERTENSION Qualifiers: Hypertension type: secondary to endocrine disorders Qualified Code(s): I15.2 - Hypertension secondary to endocrine disorders (9) Lupus (systemic lupus erythematosus) Code(s): M32.9 - SYSTEMIC LUPUS ERYTHEMATOSUS, UNSPECIFIED Assessment/Plan Fever Leukocytosis Diarrhea r/o C.diff colitis Herpes zoster Likely Viral meningitis -- continue Acyclovir IV -- will add vancomycin po empirically , f/u stool c.diff/culture testing -- blood cultures neg 24h -- urine cultures pending -- continue monitor wbc/temp trend -- repeat labs tomorrow -- continue isolation precautions Pt appears stable at this time, monitor closely
[2019-01-21] MEDS: VANCOMYCIN 250 MG/5 ML ORAL SOLUTION PO SCH (23:15)
[2019-01-22] MEDS: SODIUM CHLORIDE 1,000 ML IV SCH ×2 (04:33→05:42)
[2019-01-22] MEDS: HEPARIN NA (PORCINE) 5,000 UNITS/ML 1ML VIAL SQ SCH ×3 (05:40→22:08)
[2019-01-22] MEDS: LABETALOL HCL 100 MG TABLET (FP) PO SCH ×3 (05:40→22:10)
[2019-01-22] MEDS: GABAPENTIN 300 MG CAPSULE (FP) PO SCH ×3 (05:40→22:09)
[2019-01-22] MEDS: VANCOMYCIN 250 MG/5 ML ORAL SOLUTION PO SCH ×4 (05:43→23:07)
--- NOTE | 2019-01-22 08:13 | PN ---
Progress Note, Physician Chief Complaint: complaints of diarrhea over night History of Present Illness: Carol Trent is a 73 year old female with a past medical history of lupus (s/p lymphadenectomy, R renal stent), R BKA (s/p gangrene), PAD (b/l stents), CAD, HTN, HLD, anemia, hx of DVT who presents with a headache and chills. Patient stated that she has had a headache, photophobia, phonophobia, nausea, decreased appetite, lightheadedness, generalized weakness, neck pain since . Stated that the symptoms were progressively getting worse and day before admission she developed chills and at times felt like she might have a fever. Additionally, yesterday she noted that she began to have a painful and pruritic rash on her back and underneath her breast. She took Tylenol for the pain and had limited relief. She was getting worried that her symptoms were not remitting and she was beginning to feel very weak and not able to ambulate well and came to the hospital for further evaluation. Denied chest pain, shortness of breath, abdominal pain, vomiting, numbness/tingling, confusion, trauma, loss of consciousness, cough. Denied recent sick contacts, changes in medications, recent travel. Additionally, stated she had nasal congestion for about a week or more with rhinnorhea. PAST SURGICAL HISTORY: R kidney stent lymphadenectomy R BKA bilateral LE stents - Current Medication List Current Medications: Active Medications Acetaminophen (Tylenol -) 650 mg PO Q4H PRN PRN Reason: Fever Or Pain Last Admin: 01/21/19 23:02 Dose: 650 mg Aspirin (Asa -) 81 mg PO DAILY [facility] Last Admin: 01/21/19 10:52 Dose: 81 mg Calcium Carbonate (Os-Ryan 500mg -) 1,000 mg PO DAILY [facility] Last Admin: 01/21/19 10:52 Dose: 1,000 mg Cholecalciferol (Vitamin D3 -) 1,000 unit PO DAILY [facility] Last Admin: 01/21/19 10:52 Dose: 1,000 unit Collagenase (Santyl -) 1 applic TP DAILY [facility]; Protocol Last Admin: 01/21/19 10:53 Dose: 1 applic Gabapentin (Neurontin -) 900 mg PO TID [facility] Last Admin: 01/22/19 05:40 Dose: 900 mg Heparin Sodium (Porcine) (Heparin -) 5,000 unit SQ TID [facility] Last Admin: 01/22/19 05:40 Dose: 5,000 unit Hydroxychloroquine Sulfate (Plaquenil -) 200 mg PO DAILY [facility] Last Admin: 01/21/19 10:52 Dose: 200 mg Sodium Chloride (Normal Saline -) 1,000 mls @ 75 mls/hr IV ASDIR [facility] Last Admin: 01/22/19 05:42 Dose: 75 mls/hr Acyclovir 620 mg/ Dextrose 112.4 mls @ 112.4 mls/hr IVPB BID [facility] Last Admin: 01/21/19 23:03 Dose: 112.4 mls/hr Labetalol HCl (Normodyne -) 200 mg PO TID [facility] Last Admin: 01/22/19 05:40 Dose: 200 mg Multivit/Ca Carb/B Cmplx/FA/Prenat (Nephro-Rebecca -) 1 tablet PO DAILY [facility] Last Admin: 01/21/19 10:52 Dose: 1 tablet Multivitamins/Minerals/Vitamin C (Tab-A-Vit -) 1 tab PO DAILY [facility] Last Admin: 01/21/19 10:52 Dose: 1 tab Nifedipine (Procardia Xl -) 60 mg PO BID [facility] Last Admin: 01/21/19 23:02 Dose: 60 mg Ranitidine HCl (Zantac -) 150 mg PO DAILY [facility] Last Admin: 01/21/19 10:52 Dose: 150 mg Vancomycin HCl (Vancomycin Oral Solution) 125 mg PO Q6HPO [facility] Last Admin: 01/22/19 05:43 Dose: 125 mg - Objective Vital Signs: Vital Signs Temperature 98.5 F 01/22/19 01:00 Pulse Rate 91 H 01/21/19 22:00 Respiratory Rate 18 01/21/19 22:00 Blood Pressure 141/51 L 01/21/19 22:00 O2 Sat by Pulse Oximetry (%) 96 01/21/19 21:00 Additional Findings/Remarks: Constitutional: Yes: Well Nourished, Mild Distress Eyes: Yes: WNL, Conjunctiva Clear HENT: Yes: WNL, Atraumatic, Normocephalic Neck: Yes: Tenderness (to neck) Cardiovascular: Yes: WNL, Regular Rate and Rhythm Respiratory: Yes: WNL, Regular, CTA Bilaterally Gastrointestinal: Yes: WNL, Normal Bowel Sounds ...Rectal Exam: Yes: Deferred Genitourinary: Yes: WNL Breast(s): Yes: Other (lesions as described) Musculoskeletal: Yes: Joint Stiffness, Muscle Pain Extremities: Yes: Other (right BKA, wound to Left foot) Edema: No Integumentary: Yes: Other (vesicular rash on back overlapping 2 dermatomes on the R side. Noted vesicular rash below the breast on the R side. L foot ulcer on medial aspect of foot observed.)) Neurological: Yes: WNL, Alert, Oriented ...Motor Strength: WNL Psychiatric: Yes: WNL Labs: INR, PTT INR 1.07 (0.83-1.09) 01/17/19 20:20 HSV PCR neg VZV POSITIVE Cryptococcal PENDING blood cultures neg 24h C.diff positive antigen/stool cultures PENDING Urine culture pending Problem List - Problems (1) CAD (coronary artery disease) Assessment/Plan: c/w asa Code(s): I25.10 - ATHSCL HEART DISEASE OF [place] CORONARY ARTERY W/O ANG PCTRS (2) History of DVT (deep vein thrombosis) Assessment/Plan: c/w heparin while non ambulatory Code(s): Z86.718 - PERSONAL HISTORY OF OTHER VENOUS THROMBOSIS AND EMBOLISM (3) PVD (peripheral vascular disease) Assessment/Plan: s/p R BKA Code(s): I73.9 - PERIPHERAL VASCULAR DISEASE, UNSPECIFIED (4) Amputated right leg Code(s): Z89.611 - ACQUIRED ABSENCE OF RIGHT LEG ABOVE KNEE (5) Anemia Assessment/Plan: hgb 9.6 continue to trend Code(s): D64.9 - ANEMIA, UNSPECIFIED Qualifiers: Anemia type: unspecified type Qualified Code(s): D64.9 - Anemia, unspecified (6) HTN (hypertension) Assessment/Plan: normotensive c/w home medications-labetolol,procardia Code(s): I10 - ESSENTIAL (PRIMARY) HYPERTENSION Qualifiers: Hypertension type: secondary to endocrine disorders Qualified Code(s): I15.2 - Hypertension secondary to endocrine disorders (7) Hyperlipidemia Assessment/Plan: c/w low fat/chol diet Code(s): E78.5 - HYPERLIPIDEMIA, UNSPECIFIED (8) Meningitis Assessment/Plan: - CSF preliminary showing 8 WBC (only lymphocytes), elevated protein count, normal glucose, consistent with possible viral meningitis - Viral panel for HSV and VZV in CSF pending - continue acyclovir 620mg q8h as per ID - continue ceftriaxone/ vanco dc'd by ID -c/w isolation and airborne precautions - serum and CSF cryptococcal antigen pending -appreciate ID consult, Dr. Cervantes -appreciate neurology consultation-Dr Cabrera - respiratory viral panel pending Code(s): G03.9 - MENINGITIS, UNSPECIFIED (9) Shingles Assessment/Plan: c/w acyclovir until lesions are resulted c/o post herpatic pain c/w with gabapentin at increased dose Code(s): B02.9 - ZOSTER WITHOUT COMPLICATIONS Qualifiers: Herpes zoster complications: unspecified herpes zoster complication Qualified Code(s): B02.8 - Zoster with other complications (10) Prophylactic measure Assessment/Plan: FEN low fat/chol diet monitor electrolytes DVT heparin sq Dispo maintain as in patient isolations precautions full code discharge planning Code(s): Z29.9 - ENCOUNTER FOR PROPHYLACTIC MEASURES, UNSPECIFIED (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 Assessment/Plan: hx of varicella zoster infection in childhood - setting of acute VZV eruption in immunocompromised state, treat until lesions crust over - cover rashes with gauze - increase gapapentin to 900mg tid for post herpalgic neuralgia - strict isolation precaution Code(s): B02.7 - DISSEMINATED ZOSTER (12) Foot ulcer, left Code(s): L97.529 - NON-PRESSURE CHRONIC ULCER OTH PRT LEFT FOOT W UNSP SEVERITY (13) Connective tissue disease Assessment/Plan: seen by rheumatology, appreciate consultation unlikely that diagnosis of SLE is accurate-- SHANKAR and anti-SSA positive with all other serology including ANCA negative and normal complement no need to treat with steroids Code(s): M35.9 - SYSTEMIC INVOLVEMENT OF CONNECTIVE TISSUE, UNSPECIFIED (14) Diarrhea Assessment/Plan: Cdif positive antigen c/w PO vanco Code(s): R19.7 - DIARRHEA, UNSPECIFIED (15) Fever Assessment/Plan: T 100.3 yesterday, afebrile overnight Code(s): R50.9 - FEVER, UNSPECIFIED Qualifiers: Fever type: unspecified Qualified Code(s): R50.9 - Fever, unspecified Visit type - Emergency Visit Emergency Visit: Yes ED Registration Date: 01/18/19 Care time: The patient presented to the Emergency Department on the above date and was hospitalized for further evaluation of their emergent condition. - New Patient This patient is new to me today: No - Critical Care Critical Care patient: No - Discharge Referral Referred to [facility] Med P.C.: No
[2019-01-22 08:18] LABS: BASO % 1.2 % (0-2.0); EOS % 3.4 % (0-4.5); HEMATOCRIT 30.3 % (32.4-45.2); HEMOGLOBIN 9.7 GM/dL (10.7-15.3); LYMPH % 25.8 % (8-40); MCH 25.9 pg (25.7-33.7); MCHC 31.9 g/dl (32.0-36.0); MEAN CELL VOLUME 81.2 fl (80-96); MEAN PLT VOLUME 9.3 fl (7.5-11.1); MONO % 11.3 % (3.8-10.2); NEUT % 58.3 % (42.8-82.8); PLATELET COUNT 354 K/MM3 (134-434); RBC 3.74 M/mm3 (3.60-5.2); RDW 19.2 % (11.6-15.6); WHITE BLOOD COUNT 9.1 K/mm3 (4.0-10.0)
--- NOTE | 2019-01-22 08:36 | PN ---
Progress Note (short form) - Note Progress Note: Neurology CHIEF COMPLAINT: headache and chills PCP: Dr. Yaya Montoya HISTORY OF PRESENT ILLNESS: Carol Trent is a 73 year old female with a past medical history of lupus (s/p lymphadenectomy, R renal stent), R BKA (s/p gangrene), PAD (b/l stents), CAD, HTN, HLD, anemia, hx of DVT who presents with a headache and chills. Patient stated that she has had a headache, photophobia, phonophobia, nausea, decreased appetite, lightheadedness, generalized weakness, neck pain since previous week. Stated that the symptoms were progressively getting worse and day before admission she developed chills and at times felt like she might have a fever. Additionally, yesterday she noted that she began to have a painful and pruritic rash on her back and underneath her breast. She took Tylenol for the pain and had limited relief. She was getting worried that her symptoms were not remitting and she was beginning to feel very weak and not able to ambulate well and came to the hospital for further evaluation. Denied chest pain, shortness of breath, abdominal pain, vomiting, numbness/tingling, confusion, trauma, loss of consciousness, cough. Denied recent sick contacts, changes in medications, recent travel. Additionally, stated she had nasal congestion for about a week or more with rhinnorhea. In the ER, found to have WBC 11.4, CRE 1.3 (baseline 1.0-1.1). CT head with no acute pathology, CXR with no acute pathology. There was a concern for meningitis and therefore lumbar puncture was performed, CSF results reviewed and demonstrated white blood cells of 8 as well as increased protein to 86, glucose of 47 (normal range). This appears to consistent with viral meningitis. Still demonstrating chills though slightly increased energy today and feels a little bit better. Active Medications Acetaminophen (Tylenol -) 650 mg PO Q4H PRN PRN Reason: Fever Or Pain Last Admin: 01/21/19 23:02 Dose: 650 mg Aspirin (Asa -) 81 mg PO DAILY [facility] Last Admin: 01/21/19 10:52 Dose: 81 mg Calcium Carbonate (Os-Ryan 500mg -) 1,000 mg PO DAILY [facility] Last Admin: 09/26/19 10:52 Dose: 1,000 mg Cholecalciferol (Vitamin D3 -) 1,000 unit PO DAILY [facility] Last Admin: 01/21/19 10:52 Dose: 1,000 unit Collagenase (Santyl -) 1 applic TP DAILY [facility]; Protocol Last Admin: 01/21/19 10:53 Dose: 1 applic Gabapentin (Neurontin -) 900 mg PO TID [facility] Last Admin: 01/22/19 05:40 Dose: 900 mg Heparin Sodium (Porcine) (Heparin -) 5,000 unit SQ TID [facility] Last Admin: 01/22/19 05:40 Dose: 5,000 unit Hydroxychloroquine Sulfate (Plaquenil -) 200 mg PO DAILY [facility] Last Admin: 01/21/19 10:52 Dose: 200 mg Sodium Chloride (Normal Saline -) 1,000 mls @ 75 mls/hr IV ASDIR [facility] Last Admin: 01/22/19 05:42 Dose: 75 mls/hr Acyclovir 620 mg/ Dextrose 112.4 mls @ 112.4 mls/hr IVPB BID [facility] Last Admin: 01/21/19 23:03 Dose: 112.4 mls/hr Labetalol HCl (Normodyne -) 200 mg PO TID [facility] Last Admin: 01/22/19 05:40 Dose: 200 mg Multivit/Ca Carb/B Cmplx/FA/Prenat (Nephro-Rebecca -) 1 tablet PO DAILY [facility] Last Admin: 01/21/19 10:52 Dose: 1 tablet Multivitamins/Minerals/Vitamin C (Tab-A-Vit -) 1 tab PO DAILY [facility] Last Admin: 01/21/19 10:52 Dose: 1 tab Nifedipine (Procardia Xl -) 60 mg PO BID [facility] Last Admin: 01/21/19 23:02 Dose: 60 mg Ranitidine HCl (Zantac -) 150 mg PO DAILY [facility] Last Admin: 01/21/19 10:52 Dose: 150 mg Vancomycin HCl (Vancomycin Oral Solution) 125 mg PO Q6HPO [facility] Last Admin: 01/22/19 05:43 Dose: 125 mg PHYSICAL EXAMINATION Vital Signs Period Temp Pulse Resp BP Sys/[place] Pulse Ox Last 24 Hr 98.2 F-100.6 F 55-91 18-18 141-152/51-56 96 GENERAL: Awake, alert, and fully oriented, in moderate acute distress. Shivering in bed. HEAD: Normal with no signs of trauma. EYES: Pupils equal, round and reactive to light, extraocular movements intact, conjunctival injection. EARS, NOSE, THROAT: Oropharynx clear without exudates. Dry mucous membranes. NECK: Neck stiffness, decreased range of motion. LUNGS: Breath sounds equal, clear to auscultation bilaterally. No wheezes, and no crackles. No accessory muscle use. HEART: Regular rate and rhythm, normal S1 and S2 without murmur, rub. ABDOMEN: Soft, nontender, not distended, normoactive bowel sounds, no guarding, no rebound, no masses. MUSCULOSKELETAL: Normal range of motion at all joints. Tender at joints when moving. UPPER EXTREMITIES: 2+ pulses, warm, well-perfused. No cyanosis. No clubbing. No peripheral edema. LOWER EXTREMITIES: 1+ pulse on L difficult to palpate, cool, well-perfused. Tender to palpation throughout, no peripheral edema. R BKA noted with prosthesis. NEUROLOGICAL: Cranial nerves II-XII intact. 4/5 muscle strength throughout, R BKA. PSYCHIATRIC: Cooperative. Good eye contact. Appropriate mood and affect. SKIN: Warm, dry, normal turgor CBCD WBC 9.1 K/mm3 (4.0-10.0) 01/22/19 06:30 RBC 3.74 M/mm3 (3.60-5.2) 01/22/19 06:30 Hgb 9.7 GM/dL (10.7-15.3) L 01/22/19 06:30 Hct 30.3 % (32.4-45.2) L 01/22/19 06:30 MCV 81.2 fl (80-96) 01/22/19 06:30 MCHC 31.9 g/dl (32.0-36.0) L 01/22/19 06:30 RDW 19.2 % (11.6-15.6) H 01/22/19 06:30 Plt Count 354 K/MM3 (134-434) 01/22/19 06:30 MPV 9.3 fl (7.5-11.1) 01/22/19 06:30 CMP Sodium 140 mmol/L (136-145) 01/20/19 10:43 Potassium 3.5 mmol/L (3.5-5.1) 01/20/19 10:43 Chloride 107 mmol/L (98-107) 01/20/19 10:43 Carbon Dioxide 27 mmol/L (21-32) 01/20/19 10:43 Anion Gap 7 MMOL/L (8-16) L 01/20/19 10:43 BUN 16.0 mg/dL (7-18) 01/20/19 10:43 Creatinine 1.3 mg/dL (0.55-1.3) 01/20/19 10:43 Random Glucose 147 mg/dL (74-106) H 01/20/19 10:43 Calcium 8.7 mg/dL (8.5-10.1) 01/20/19 10:43 Total Bilirubin 0.1 mg/dL (0.2-1) L 01/20/19 10:43 AST 13 U/L (15-37) L 01/20/19 10:43 ALT 15 U/L (13-61) 01/20/19 10:43 Alkaline Phosphatase 67 U/L (45-117) 01/20/19 10:43 Total Protein 6.8 g/dl (6.4-8.2) 01/20/19 10:43 Albumin 2.7 g/dl (3.4-5.0) L 01/20/19 10:43 ASSESSMENT/PLAN: 73 year old female with a past medical history of lupus (s/p lymphadenectomy, R renal stent), R BKA (s/p gangrene), PAD (b/l stents), CAD, HTN, HLD, anemia, hx of DVT who presents with a headache and chills. Patient stated that she has had a headache, photophobia, phonophobia, nausea, decreased appetite, lightheadedness, generalized weakness, neck pain since previous week. Stated that the symptoms were progressively getting worse and day before admission she developed chills and at times felt like she might have a fever. Additionally, yesterday she noted that she began to have a painful and pruritic rash on her back and underneath her breast. She took Tylenol for the pain and had limited relief. She was getting worried that her symptoms were not remitting and she was beginning to feel very weak and not able to ambulate well and came to the hospital for further evaluation. Denied chest pain, shortness of breath, abdominal pain, vomiting, numbness/tingling, confusion, trauma, loss of consciousness, cough. Denied recent sick contacts, changes in medications, recent travel. Additionally, stated she had nasal congestion for about a week or more with rhinnorhea. In the ER, found to have WBC 11.4, CRE 1.3 (baseline 1.0-1.1). CT head with no acute pathology, CXR with no acute pathology. There was a concern for meningitis and therefore lumbar puncture was performed, CSF results reviewed and demonstrated white blood cells of 8 as well as increased protein to 86, glucose of 47 (normal range). This appears to consistent with viral meningitis, Rash in her right paraspinal and right substernal region appears slightly reduced. Continues to demonstrate chills,, not yet at baseline. Will require follow-up from infectious disease specialist to evaluate medication regimen. Patient being given supportive management as recommended. IV hydration as needed. follow-up CSF results, maintain isolation precautions and protocol. Monitor blood pressure, maintain normotensive range, bedrest needed, DVT ppx as patient not ambulating.
[2019-01-22 08:43] LABS: ALBUMIN 2.6 g/dl (3.4-5.0); BILIRUBIN,TOTAL 0.2 mg/dL (0.2-1); BLOOD UREA NITROGEN 9.1 mg/dL (7-18); CALCIUM 8.3 mg/dL (8.5-10.1); CREATININE 1.2 mg/dL (0.55-1.3); MAGNESIUM 2.2 mg/dL (1.8-2.4); POTASSIUM 3.8 mmol/L (3.5-5.1); TOT PROT 6.9 g/dl (6.4-8.2)
[2019-01-22] MEDS ORDERED: PT OWN MED DRAWER 7, Y5N ONE ×2 (10:20→18:08)
--- NOTE | 2019-01-22 10:24 | PN ---
Progress Note, Physician History of Present Illness: stable no new issues results noted rash drying sad - Current Medication List Current Medications: Active Medications Acetaminophen (Tylenol -) 650 mg PO Q4H PRN PRN Reason: Fever Or Pain Last Admin: 01/21/19 23:02 Dose: 650 mg Aspirin (Asa -) 81 mg PO DAILY [facility] Last Admin: 01/21/19 10:52 Dose: 81 mg Calcium Carbonate (Os-Ryan 500mg -) 1,000 mg PO DAILY [facility] Last Admin: 01/21/19 10:52 Dose: 1,000 mg Cholecalciferol (Vitamin D3 -) 1,000 unit PO DAILY [facility] Last Admin: 01/21/19 10:52 Dose: 1,000 unit Collagenase (Santyl -) 1 applic TP DAILY [facility]; Protocol Last Admin: 01/21/19 10:53 Dose: 1 applic Gabapentin (Neurontin -) 900 mg PO TID [facility] Last Admin: 01/22/19 05:40 Dose: 900 mg Heparin Sodium (Porcine) (Heparin -) 5,000 unit SQ TID [facility] Last Admin: 01/22/19 05:40 Dose: 5,000 unit Hydroxychloroquine Sulfate (Plaquenil -) 200 mg PO DAILY [facility] Last Admin: 01/21/19 10:52 Dose: 200 mg Sodium Chloride (Normal Saline -) 1,000 mls @ 75 mls/hr IV ASDIR [facility] Last Admin: 01/22/19 05:42 Dose: 75 mls/hr Acyclovir 620 mg/ Dextrose 112.4 mls @ 112.4 mls/hr IVPB BID [facility] Last Admin: 01/21/19 23:03 Dose: 112.4 mls/hr Labetalol HCl (Normodyne -) 200 mg PO TID [facility] Last Admin: 01/22/19 05:40 Dose: 200 mg Multivit/Ca Carb/B Cmplx/FA/Prenat (Nephro-Rebecca -) 1 tablet PO DAILY [facility] Last Admin: 01/21/19 10:52 Dose: 1 tablet Multivitamins/Minerals/Vitamin C (Tab-A-Vit -) 1 tab PO DAILY [facility] Last Admin: 01/21/19 10:52 Dose: 1 tab Nifedipine (Procardia Xl -) 60 mg PO BID [facility] Last Admin: 01/21/19 23:02 Dose: 60 mg Ranitidine HCl (Zantac -) 150 mg PO DAILY [facility] Last Admin: 01/21/19 10:52 Dose: 150 mg Vancomycin HCl (Vancomycin Oral Solution) 125 mg PO Q6HPO [facility] Last Admin: 01/22/19 05:43 Dose: 125 mg - Objective Vital Signs: Vital Signs Temperature 98.5 F 01/22/19 01:00 Pulse Rate 91 H 01/21/19 22:00 Respiratory Rate 18 01/21/19 22:00 Blood Pressure 141/51 L 01/21/19 22:00 O2 Sat by Pulse Oximetry (%) 96 01/21/19 21:00 Constitutional: Yes: Calm, Anxious Cardiovascular: Yes: Regular Rate and Rhythm Respiratory: Yes: Regular, CTA Bilaterally Gastrointestinal: Yes: Normal Bowel Sounds, Soft Musculoskeletal: Yes: WNL Extremities: Yes: Other Integumentary: Yes: Rash (drying) Neurological: Yes: Alert, Oriented Psychiatric: Yes: Alert, Oriented Labs: CBC, BMP 01/22/19 06:30 01/22/19 06:30 INR, PTT INR 1.07 (0.83-1.09) 01/17/19 20:20 Assessment/Plan Problem List - Problems (1) CAD (coronary artery disease) Code(s): I25.10 - ATHSCL HEART DISEASE OF [place] CORONARY ARTERY W/O ANG PCTRS (2) Connective tissue disease Code(s): M35.9 - SYSTEMIC INVOLVEMENT OF CONNECTIVE TISSUE, UNSPECIFIED (3) Diarrhea Code(s): R19.7 - DIARRHEA, UNSPECIFIED (4) Shingles Code(s): B02.9 - ZOSTER WITHOUT COMPLICATIONS Qualifiers: Herpes zoster complications: unspecified herpes zoster complication Qualified Code(s): B02.8 - Zoster with other complications (5) Fever Code(s): R50.9 - FEVER, UNSPECIFIED Qualifiers: Fever type: unspecified Qualified Code(s): R50.9 - Fever, unspecified (6) PVD (peripheral vascular disease) Code(s): I73.9 - PERIPHERAL VASCULAR DISEASE, UNSPECIFIED (7) Amputated right leg Code(s): Z89.611 - ACQUIRED ABSENCE OF RIGHT LEG ABOVE KNEE (8) HTN (hypertension) Code(s): I10 - ESSENTIAL (PRIMARY) HYPERTENSION Qualifiers: Hypertension type: secondary to endocrine disorders Qualified Code(s): I15.2 - Hypertension secondary to endocrine disorders (9) Lupus (systemic lupus erythematosus) Code(s): M32.9 - SYSTEMIC LUPUS ERYTHEMATOSUS, UNSPECIFIED Assessment/Plan Fever Leukocytosis Diarrhea Herpes zoster Likely Viral meningitis -- continue Acyclovir IV await for all other results
[2019-01-22] MEDS: ACYCLOVIR INJECTION 620 MG in DEXTROSE 5%-WATER - 100 ML IVPB SCH ×2 (11:12→22:08)
[2019-01-22] MEDS: ASPIRIN 81 MG CHEWABLE TABLETS PO SCH (11:12)
[2019-01-22] MEDS: NIFEdipine E.R 60 MG TABLET (UD) PO SCH ×2 (11:12→22:10)
[2019-01-22] MEDS: CHOLECALCIFEROL (VIT D3) 1,000 UNIT (25 MCG) TABLET PO SCH (11:13)
[2019-01-22] MEDS: CALCIUM (OYSTER SHELL) 500 MG TABLET (FP) PO SCH (11:13)
[2019-01-22] MEDS: HYDROXYCHLOROQUINE SO4 200 MG TABLET (FP) PO SCH (11:14)
[2019-01-22] MEDS: VITAMIN B COMP W-C 1 EA TABLET PO SCH (11:14)
[2019-01-22] MEDS: MULTIVITAMINS (DAILY MVI) TABLET (FP) PO SCH (11:14)
[2019-01-22] MEDS: RANITIDINE HCL 150 MG TABLET (FP) PO SCH (14:39)
[2019-01-22 15:15] VITALS: BMI 27.2
[2019-01-22] MEDS: LIDOCAINE 5% TOPICAL PATCH TP SCH (15:49)
[2019-01-22] MEDS: COLLAGENASE CLOSTRIDIUM HIST. 30 GRAMS TUBE TP SCH (15:50)
[2019-01-22] MEDS ORDERED: MAG HYDROX/AL HYDROX/SIMETH -MYLANTA- ORAL SUSPENSION PO PRN (21:48)
[2019-01-22] MEDS: LIDOCAINE PATCH REMOVAL MC SCH (22:08)
[2019-01-22] MEDS: ACETAMINOPHEN 325 MG TABLET (FP) PO PRN (23:07)
[2019-01-23] MEDS: SODIUM CHLORIDE 1,000 ML IV SCH ×2 (05:56→18:13)
[2019-01-23] MEDS: HEPARIN NA (PORCINE) 5,000 UNITS/ML 1ML VIAL SQ SCH ×3 (05:57→22:53)
[2019-01-23] MEDS: GABAPENTIN 300 MG CAPSULE (FP) PO SCH ×3 (05:57→22:51)
[2019-01-23] MEDS: VANCOMYCIN 250 MG/5 ML ORAL SOLUTION PO SCH ×4 (05:58→23:58)
[2019-01-23] MEDS: LABETALOL HCL 100 MG TABLET (FP) PO SCH ×3 (05:58→22:53)
[2019-01-23 08:03] LABS: BASO % 1.3 % (0-2.0); EOS % 4.1 % (0-4.5); HEMATOCRIT 27.9 % (32.4-45.2); LYMPH % 24.1 % (8-40); MCH 26.1 pg (25.7-33.7); MCHC 32.3 g/dl (32.0-36.0); MEAN CELL VOLUME 80.8 fl (80-96); MEAN PLT VOLUME 9.2 fl (7.5-11.1); MONO % 10.1 % (3.8-10.2); NEUT % 60.4 % (42.8-82.8); PLATELET COUNT 351 K/MM3 (134-434); RBC 3.46 M/mm3 (3.60-5.2); RDW 18.9 % (11.6-15.6)
[2019-01-23 08:09] LABS: ALBUMIN 2.5 g/dl (3.4-5.0); BILIRUBIN,TOTAL 0.7 mg/dL (0.2-1); BLOOD UREA NITROGEN 8.8 mg/dL (7-18); CALCIUM 8.6 mg/dL (8.5-10.1); CREATININE 1.1 mg/dL (0.55-1.3); MAGNESIUM 2.5 mg/dL (1.8-2.4); POTASSIUM 3.8 mmol/L (3.5-5.1); TOT PROT 6.8 g/dl (6.4-8.2)
--- NOTE | 2019-01-23 09:08 | PN ---
Physical Exam: History of Present Illness: Carol Trent is a 73 year old female with a past medical history of lupus (s/p lymphadenectomy, R renal stent), R BKA (s/p gangrene), PAD (b/l stents), CAD, HTN, HLD, anemia, hx of DVT who presents with a headache and chills. Patient stated that she has had a headache, photophobia, phonophobia, nausea, decreased appetite, lightheadedness, generalized weakness, neck pain since . Stated that the symptoms were progressively getting worse and day before admission she developed chills and at times felt like she might have a fever. Additionally, yesterday she noted that she began to have a painful and pruritic rash on her back and underneath her breast. She took Tylenol for the pain and had limited relief. She was getting worried that her symptoms were not remitting and she was beginning to feel very weak and not able to ambulate well and came to the hospital for further evaluation. Denied chest pain, shortness of breath, abdominal pain, vomiting, numbness/tingling, confusion, trauma, loss of consciousness, cough. Denied recent sick contacts, changes in medications, recent travel. Additionally, stated she had nasal congestion for about a week or more with rhinnorhea. SUBJECTIVE: Patient seen and examined. Pt states her headache is better. Her rash is drying. Denies CP, SHOB, N/V/D or abd pain. . Had fever last night but has been afebrile today, wbc normal. Pt previously told nurses she wanted a psych evaluation. When discussing with the patient, she stated being previously giving medication for depression, but she does not want to mask the pain with medication and she wants someone talk to about it, a therapist. Pt states she is has a list of therapist she can see with Medicare. Encouraged her to call on Friday to try and set up an appointment. Pt agreed. OBJECTIVE: Vital Signs Period Temp Pulse Resp BP Sys/[place] Pulse Ox Last 24 Hr 98.1 F-101.3 F 70-90 18-20 124-157/51-60 Constitutional: Yes: Well Nourished, Mild Distress Eyes: Yes: WNL, Conjunctiva Clear HENT: Yes: WNL, Atraumatic, Normocephalic Neck: Yes: Tenderness (to neck) Cardiovascular: Yes: WNL, Regular Rate and Rhythm Respiratory: Yes: WNL, Regular, CTA Bilaterally Gastrointestinal: Yes: WNL, Normal Bowel Sounds ...Rectal Exam: Yes: Deferred Genitourinary: Yes: WNL Breast(s): Yes: Other (lesions as described) Musculoskeletal: Yes: Joint Stiffness, Muscle Pain Extremities: Yes: Other (right BKA, wound to Left foot) Edema: No Integumentary: Yes: Other (vesicular rash on back overlapping 2 dermatomes on the R side. Noted vesicular rash below the breast on the R side. L foot ulcer on medial aspect of foot observed.)) Neurological: Yes: WNL, Alert, Oriented ...Motor Strength: WNL Psychiatric: Yes: WNL Laboratory Results - last 24 hr 01/23/19 01/23/19 05:38 05:38 WBC 9.0 RBC 3.46 L Hgb 9.0 L Hct 27.9 L MCV 80.8 MCH 26.1 MCHC 32.3 RDW 18.9 H Plt Count 351 MPV 9.2 Absolute Neuts (auto) 5.4 Neutrophils % 60.4 Lymphocytes % 24.1 Monocytes % 10.1 Eosinophils % 4.1 Basophils % 1.3 Nucleated RBC % 0 Sodium 142 Potassium 3.8 Chloride 111 H Carbon Dioxide 24 Anion Gap 7 L BUN 8.8 Creatinine 1.1 Est GFR (CKD-EPI)AfAm 58.09 Est GFR (CKD-EPI)NonAf 50.12 Random Glucose 91 Calcium 8.6 Magnesium 2.5 H Total Bilirubin 0.7 AST 18 ALT 15 Alkaline Phosphatase 68 Total Protein 6.8 Albumin 2.5 L Active Medications Generic Name Dose Route Start Last Admin Trade Name Freq PRN Reason Stop Dose Admin Acetaminophen 650 mg 01/20/19 22:33 01/22/19 23:07 Tylenol - PO 650 mg Q4H PRN Administration Fever Or Pain Al Hydroxide/Mg Hydroxide 30 ml 01/22/19 21:48 Mylanta Suspension - PO Q6HPO PRN INDIGESTION Aspirin 81 mg 01/18/19 10:00 01/22/19 11:12 Asa - PO 81 mg DAILY [facility] Administration Calcium Carbonate 1,000 mg 01/18/19 10:00 01/22/19 11:13 Os-Ryan 500mg - PO 1,000 mg DAILY [facility] Administration Cholecalciferol 1,000 unit 01/18/19 10:00 01/22/19 11:13 Vitamin D3 - PO 1,000 unit DAILY [facility] Administration Collagenase 1 applic 01/18/19 10:00 01/22/19 15:50 Santyl - TP 1 applic DAILY [facility] Administration Protocol Gabapentin 900 mg 01/20/19 13:32 01/23/19 05:57 Neurontin - PO 900 mg TID [facility] Administration Heparin Sodium (Porcine) 5,000 unit 01/18/19 06:00 01/23/19 05:57 Heparin - SQ 5,000 unit TID [facility] Administration Hydroxychloroquine Sulfate 200 mg 01/18/19 10:00 01/22/19 11:14 Plaquenil - PO 200 mg DAILY [facility] Administration Sodium Chloride 1,000 mls @ 75 mls/hr 01/18/19 04:00 01/23/19 05:56 Normal Saline - IV 75 mls/hr ASDIR [facility] Administration Acyclovir 620 mg/ Dextrose 112.4 mls @ 112.4 mls/hr 01/18/19 22:00 01/22/19 22:08 IVPB 112.4 mls/hr BID [facility] Administration Labetalol HCl 200 mg 01/18/19 06:00 01/23/19 05:58 Normodyne - PO 200 mg TID [facility] Administration Lidocaine 1 patch 01/22/19 15:15 01/22/19 15:49 Lidoderm Patch - TP 1 patch DAILY [facility] Administration Miscellaneous 1 each 01/22/19 22:00 01/22/19 22:08 Lidoderm Patch Removal MC 1 each DAILY@2200 [facility] Administration Multivit/Ca Carb/B Cmplx/FA/Prenat 1 tablet 01/18/19 10:00 01/22/19 11:14 Nephro-Rebecca - PO 1 tablet DAILY [facility] Administration Multivitamins/Minerals/Vitamin C 1 tab 01/18/19 10:00 01/22/19 11:14 Tab-A-Vit - PO 1 tab DAILY [facility] Administration Nifedipine 60 mg 01/18/19 10:00 01/22/19 22:10 Procardia Xl - PO 60 mg BID [facility] Administration Ranitidine HCl 150 mg 01/18/19 10:00 01/22/19 14:39 Zantac - PO Not Given DAILY [facility] Vancomycin HCl 125 mg 01/22/19 00:00 01/23/19 05:58 Vancomycin Oral Solution PO 125 mg Q6HPO [facility] Administration ASSESSMENT/PLAN: HSV PCR neg VZV POSITIVE Cryptococcal PENDING blood cultures neg 24h C.diff positive antigen/stool cultures PENDING Urine culture pending Problem List - Problems (1) CAD (coronary artery disease) Assessment/Plan: c/w asa Code(s): I25.10 - ATHSCL HEART DISEASE OF [place] CORONARY ARTERY W/O ANG PCTRS (2) History of DVT (deep vein thrombosis) Assessment/Plan: c/w heparin while non ambulatory Code(s): Z86.718 - PERSONAL HISTORY OF OTHER VENOUS THROMBOSIS AND EMBOLISM (3) PVD (peripheral vascular disease) Assessment/Plan: s/p R BKA Code(s): I73.9 - PERIPHERAL VASCULAR DISEASE, UNSPECIFIED (4) Amputated right leg Code(s): Z89.611 - ACQUIRED ABSENCE OF RIGHT LEG ABOVE KNEE (5) Anemia Assessment/Plan: hgb 9.0 continue to trend Code(s): D64.9 - ANEMIA, UNSPECIFIED Qualifiers: Anemia type: unspecified type Qualified Code(s): D64.9 - Anemia, unspecified (6) HTN (hypertension) Assessment/Plan: normotensive c/w home medications-labetolol,procardia Code(s): I10 - ESSENTIAL (PRIMARY) HYPERTENSION Qualifiers: Hypertension type: secondary to endocrine disorders Qualified Code(s): I15.2 - Hypertension secondary to endocrine disorders (7) Hyperlipidemia Assessment/Plan: c/w low fat/chol diet Code(s): E78.5 - HYPERLIPIDEMIA, UNSPECIFIED (8) Meningitis Assessment/Plan: - CSF preliminary showing 8 WBC (only lymphocytes), elevated protein count, normal glucose, consistent with possible viral meningitis - Viral panel for HSV and VZV in CSF pending - continue acyclovir 620mg q8h as per ID - continue ceftriaxone/ vanco dc'd by ID - continue Vancomycin PO per ID (Cassi Yuen) -c/w isolation and airborne precautions - serum and CSF cryptococcal antigen pending -appreciate ID consult, Dr. Cervantes -appreciate neurology consultation-Dr Cabrera - respiratory viral panel pending -- blood cultures neg 48hr, UCx neg -- continue monitor wbc/temp trend -- if fevers recur will consider adding antibiotics for possible Lt foot cellulitis Code(s): G03.9 - MENINGITIS, UNSPECIFIED (9) Shingles Assessment/Plan: c/w acyclovir until lesions are resulted c/o post herpatic pain c/w with gabapentin at increased dose Code(s): B02.9 - ZOSTER WITHOUT COMPLICATIONS Qualifiers: Herpes zoster complications: unspecified herpes zoster complication Qualified Code(s): B02.8 - Zoster with other complications (10) Prophylactic measure Assessment/Plan: FEN low fat/chol diet monitor electrolytes DVT heparin sq Dispo maintain as in patient isolations precautions full code discharge planning Code(s): Z29.9 - ENCOUNTER FOR PROPHYLACTIC MEASURES, UNSPECIFIED (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 Assessment/Plan: hx of varicella zoster infection in childhood - setting of acute VZV eruption in immunocompromised state, treat until lesions crust over - cover rashes with gauze - increase gapapentin to 900mg tid for post herpalgic neuralgia - strict isolation precaution Code(s): B02.7 - DISSEMINATED ZOSTER (12) Foot ulcer, left Code(s): L97.529 - NON-PRESSURE CHRONIC ULCER OTH PRT LEFT FOOT W UNSP SEVERITY (13) Connective tissue disease Assessment/Plan: seen by rheumatology, appreciate consultation unlikely that diagnosis of SLE is accurate-- SHANKAR and anti-SSA positive with all other serology including ANCA negative and normal complement no need to treat with steroids Code(s): M35.9 - SYSTEMIC INVOLVEMENT OF CONNECTIVE TISSUE, UNSPECIFIED (14) Diarrhea Assessment/Plan: Cdif positive antigen, Negative Toxin c/w PO vanco Code(s): R19.7 - DIARRHEA, UNSPECIFIED (15) Fever Assessment/Plan: -T-max 101.8 (01/20) - afebrile Code(s): R50.9 - FEVER, UNSPECIFIED Qualifiers: Fever type: unspecified Qualified Code(s): R50.9 - Fever, unspecified Visit type - Emergency Visit Emergency Visit: Yes ED Registration Date: 01/18/19 Care time: The patient presented to the Emergency Department on the above date and was hospitalized for further evaluation of their emergent condition. - New Patient This patient is new to me today: Yes Date on this admission: 01/23/19 - Critical Care Critical Care patient: No - Discharge Referral Referred to [facility] No
[2019-01-23] MEDS: CHOLECALCIFEROL (VIT D3) 1,000 UNIT (25 MCG) TABLET PO SCH (10:42)
[2019-01-23] MEDS: ACYCLOVIR INJECTION 620 MG in DEXTROSE 5%-WATER - 100 ML IVPB SCH ×2 (10:42→22:53)
[2019-01-23] MEDS: ASPIRIN 81 MG CHEWABLE TABLETS PO SCH (10:42)
[2019-01-23] MEDS: HYDROXYCHLOROQUINE SO4 200 MG TABLET (FP) PO SCH (10:42)
[2019-01-23] MEDS: NIFEdipine E.R 60 MG TABLET (UD) PO SCH ×2 (10:42→22:49)
[2019-01-23] MEDS: MULTIVITAMINS (DAILY MVI) TABLET (FP) PO SCH (10:42)
[2019-01-23] MEDS: VITAMIN B COMP W-C 1 EA TABLET PO SCH (10:42)
[2019-01-23] MEDS: RANITIDINE HCL 150 MG TABLET (FP) PO SCH (10:42)
[2019-01-23] MEDS: CALCIUM (OYSTER SHELL) 500 MG TABLET (FP) PO SCH (10:43)
[2019-01-23] MEDS: LIDOCAINE 5% TOPICAL PATCH TP SCH (10:43)
[2019-01-23] MEDS: ACETAMINOPHEN 325 MG TABLET (FP) PO PRN ×2 (10:49→23:57)
[2019-01-23] MEDS: COLLAGENASE CLOSTRIDIUM HIST. 30 GRAMS TUBE TP SCH (18:14)
--- NOTE | 2019-01-23 19:21 | PN ---
Progress Note, Physician History of Present Illness: Pt states her headache is better. Her rash is drying. Is no longer having diarrhea and denies abd pain. Had fever last night but has been afebrile today, wbc normal. - Current Medication List Current Medications: Active Medications Acetaminophen (Tylenol -) 650 mg PO Q4H PRN PRN Reason: Fever Or Pain Last Admin: 01/23/19 10:49 Dose: 650 mg Al Hydroxide/Mg Hydroxide (Mylanta Suspension -) 30 ml PO Q6HPO PRN PRN Reason: INDIGESTION Aspirin (Asa -) 81 mg PO DAILY [facility] Last Admin: 01/23/19 10:42 Dose: 81 mg Calcium Carbonate (Os-Ryan 500mg -) 1,000 mg PO DAILY [facility] Last Admin: 01/23/19 10:43 Dose: 1,000 mg Cholecalciferol (Vitamin D3 -) 1,000 unit PO DAILY [facility] Last Admin: 01/23/19 10:42 Dose: 1,000 unit Collagenase (Santyl -) 1 applic TP DAILY [facility]; Protocol Last Admin: 01/23/19 18:14 Dose: 1 applic Gabapentin (Neurontin -) 900 mg PO TID [facility] Last Admin: 01/23/19 15:15 Dose: 900 mg Heparin Sodium (Porcine) (Heparin -) 5,000 unit SQ TID [facility] Last Admin: 01/23/19 15:15 Dose: 5,000 unit Hydroxychloroquine Sulfate (Plaquenil -) 200 mg PO DAILY [facility] Last Admin: 01/23/19 10:42 Dose: 200 mg Sodium Chloride (Normal Saline -) 1,000 mls @ 75 mls/hr IV ASDIR [facility] Last Admin: 01/23/19 18:13 Dose: 75 mls/hr Acyclovir 620 mg/ Dextrose 112.4 mls @ 112.4 mls/hr IVPB BID [facility] Last Admin: 01/23/19 10:42 Dose: 112.4 mls/hr Labetalol HCl (Normodyne -) 200 mg PO TID [facility] Last Admin: 01/23/19 15:16 Dose: 200 mg Lidocaine (Lidoderm Patch -) 1 patch TP DAILY [facility] Last Admin: 01/23/19 10:43 Dose: 1 patch Miscellaneous (Lidoderm Patch Removal) 1 each MC DAILY@2200 [facility] Last Admin: 01/22/19 22:08 Dose: 1 each Multivit/Ca Carb/B Cmplx/FA/Prenat (Nephro-Rebecca -) 1 tablet PO DAILY [facility] Last Admin: 01/23/19 10:42 Dose: 1 tablet Multivitamins/Minerals/Vitamin C (Tab-A-Vit -) 1 tab PO DAILY [facility] Last Admin: 01/23/19 10:42 Dose: 1 tab Nifedipine (Procardia Xl -) 60 mg PO BID [facility] Last Admin: 01/23/19 10:42 Dose: 60 mg Ranitidine HCl (Zantac -) 150 mg PO DAILY [facility] Last Admin: 01/23/19 10:42 Dose: 150 mg Vancomycin HCl (Vancomycin Oral Solution) 125 mg PO Q6HPO [facility] Last Admin: 01/23/19 18:13 Dose: 125 mg - Objective Vital Signs: Vital Signs Temperature 97.9 F 01/23/19 17:40 Pulse Rate 84 01/23/19 17:40 Respiratory Rate 20 01/23/19 17:40 Blood Pressure 155/67 01/23/19 17:40 O2 Sat by Pulse Oximetry (%) 97 01/23/19 09:00 Constitutional: Yes: No Distress, Calm Cardiovascular: Yes: Regular Rate and Rhythm Respiratory: Yes: CTA Bilaterally Gastrointestinal: Yes: Normal Bowel Sounds, Soft Genitourinary: Yes: WNL Extremities: Yes: Amputation (Rt) Integumentary: Yes: Rash (rash on chest and back drying/less erythema) Wound/Incision: Yes: Other (Lt foot ulcer with mild erythema) Neurological: Yes: Alert, Oriented Labs: CBC, BMP 01/23/19 05:38 01/23/19 05:38 INR, PTT INR 1.07 (0.83-1.09) 01/17/19 20:20 Microbiology 01/21/19 22:00 Stool Salmonella/Shigella Culture - Preliminary Yeast Like Organism 01/21/19 22:00 Stool Yersinia Culture - Preliminary NO ENTERIC PATHOGENS, 24 HOURS, ON PRIMARY PLATES 01/21/19 22:00 Stool Vibrio Culture - Final NO GROWTH OF VIBRIO SPECIES OBTAINED 01/21/19 22:00 Stool Escherichia coli 0157 Culture - Final NO GROWTH OF E COLI 0157 OBTAINED 01/21/19 17:00 Urine - Urine Clean Catch Urine Culture - Final NO GROWTH OBTAINED 01/18/19 01:32 Cerebral Spinal Fluid - Lumbar Puncture Cryptococcal Antigen - Final 01/17/19 20:25 Blood - Peripheral Venous Blood Culture - Final NO GROWTH AFTER 5 DAYS INCUBATION 01/17/19 20:20 Blood - Peripheral Venous Blood Culture - Final NO GROWTH AFTER 5 DAYS INCUBATION 01/20/19 20:10 Blood - Peripheral Venous Blood Culture - Preliminary NO GROWTH OBTAINED AFTER 48 HOURS, INCUBATION TO CONTINUE FOR 3 DAYS. 01/20/19 20:10 Blood - Peripheral Venous Blood Culture - Preliminary NO GROWTH OBTAINED AFTER 48 HOURS, INCUBATION TO CONTINUE FOR 3 DAYS. 01/22/19 08:00 Stool Clostridioides difficile Antigen - Final 01/22/19 08:00 Stool Clostridioides difficile Toxin Assay - Final 01/18/19 01:32 Cerebral Spinal Fluid - Lumbar Puncture Gram Stain - Final 01/18/19 01:32 Cerebral Spinal Fluid - Lumbar Puncture CSF Culture - Final 01/18/19 02:25 Urine - Urine Clean Catch Urine Culture - Final Problem List - Problems (1) CAD (coronary artery disease) Code(s): I25.10 - ATHSCL HEART DISEASE OF [place] CORONARY ARTERY W/O ANG PCTRS (2) Connective tissue disease Code(s): M35.9 - SYSTEMIC INVOLVEMENT OF CONNECTIVE TISSUE, UNSPECIFIED (3) Diarrhea Code(s): R19.7 - DIARRHEA, UNSPECIFIED (4) Shingles Code(s): B02.9 - ZOSTER WITHOUT COMPLICATIONS Qualifiers: Herpes zoster complications: unspecified herpes zoster complication Qualified Code(s): B02.8 - Zoster with other complications (5) Fever Code(s): R50.9 - FEVER, UNSPECIFIED Qualifiers: Fever type: unspecified Qualified Code(s): R50.9 - Fever, unspecified (6) PVD (peripheral vascular disease) Code(s): I73.9 - PERIPHERAL VASCULAR DISEASE, UNSPECIFIED (7) Amputated right leg Code(s): Z89.611 - ACQUIRED ABSENCE OF RIGHT LEG ABOVE KNEE (8) HTN (hypertension) Code(s): I10 - ESSENTIAL (PRIMARY) HYPERTENSION Qualifiers: Hypertension type: secondary to endocrine disorders Qualified Code(s): I15.2 - Hypertension secondary to endocrine disorders (9) Lupus (systemic lupus erythematosus) Code(s): M32.9 - SYSTEMIC LUPUS ERYTHEMATOSUS, UNSPECIFIED Assessment/Plan Fever Leukocytosis - resolved Diarrhea r/o C.diff Ag positive / toxin negative - resolving Herpes zoster Viral meningitis --Lt foot ulcer clean/mild erythema -- continue Acyclovir IV -- continue Vancomycin PO -- blood cultures neg 48hr, UCx neg -- continue monitor wbc/temp trend -- if fevers recur will consider adding antibiotics for possible Lt foot cellulitis -- continue isolation precautions Pt appears stable at this time, monitor closely
[2019-01-23] MEDS ORDERED: PT OWN MED DRAWER 7, Y5N ONE (22:35)
[2019-01-23] MEDS: LIDOCAINE PATCH REMOVAL MC SCH (23:03)
[2019-01-24] MEDS: LABETALOL HCL 100 MG TABLET (FP) PO SCH ×3 (05:31→23:07)
[2019-01-24] MEDS: GABAPENTIN 300 MG CAPSULE (FP) PO SCH ×3 (05:32→23:07)
[2019-01-24] MEDS: HEPARIN NA (PORCINE) 5,000 UNITS/ML 1ML VIAL SQ SCH ×3 (05:32→23:07)
[2019-01-24] MEDS: VANCOMYCIN 250 MG/5 ML ORAL SOLUTION PO SCH ×4 (05:32→23:09)
--- NOTE | 2019-01-24 07:47 | PN ---
Progress Note, Physician History of Present Illness: s/p debridement - Current Medication List Current Medications: Active Medications Acetaminophen (Tylenol -) 650 mg PO Q4H PRN PRN Reason: Fever Or Pain Last Admin: 01/23/19 23:57 Dose: 650 mg Al Hydroxide/Mg Hydroxide (Mylanta Suspension -) 30 ml PO Q6HPO PRN PRN Reason: INDIGESTION Aspirin (Asa -) 81 mg PO DAILY [facility] Last Admin: 01/23/19 10:42 Dose: 81 mg Calcium Carbonate (Os-Ryan 500mg -) 1,000 mg PO DAILY [facility] Last Admin: 01/23/19 10:43 Dose: 1,000 mg Cholecalciferol (Vitamin D3 -) 1,000 unit PO DAILY [facility] Last Admin: 01/23/19 10:42 Dose: 1,000 unit Collagenase (Santyl -) 1 applic TP DAILY [facility]; Protocol Last Admin: 01/23/19 18:14 Dose: 1 applic Gabapentin (Neurontin -) 900 mg PO TID [facility] Last Admin: 01/24/19 05:32 Dose: 900 mg Heparin Sodium (Porcine) (Heparin -) 5,000 unit SQ TID [facility] Last Admin: 01/24/19 05:32 Dose: 5,000 unit Hydroxychloroquine Sulfate (Plaquenil -) 200 mg PO DAILY [facility] Last Admin: 01/23/19 10:42 Dose: 200 mg Sodium Chloride (Normal Saline -) 1,000 mls @ 75 mls/hr IV ASDIR [facility] Last Admin: 01/23/19 18:13 Dose: 75 mls/hr Acyclovir 620 mg/ Dextrose 112.4 mls @ 112.4 mls/hr IVPB BID [facility] Last Admin: 01/23/19 22:53 Dose: 112.4 mls/hr Labetalol HCl (Normodyne -) 200 mg PO TID [facility] Last Admin: 01/24/19 05:31 Dose: 200 mg Lidocaine (Lidoderm Patch -) 1 patch TP DAILY [facility] Last Admin: 01/23/19 10:43 Dose: 1 patch Miscellaneous (Lidoderm Patch Removal) 1 each MC DAILY@2200 [facility] Last Admin: 01/23/19 23:03 Dose: 1 each Multivit/Ca Carb/B Cmplx/FA/Prenat (Nephro-Rebecca -) 1 tablet PO DAILY [facility] Last Admin: 01/23/19 10:42 Dose: 1 tablet Multivitamins/Minerals/Vitamin C (Tab-A-Vit -) 1 tab PO DAILY [facility] Last Admin: 01/23/19 10:42 Dose: 1 tab Nifedipine (Procardia Xl -) 60 mg PO BID [facility] Last Admin: 01/23/19 22:49 Dose: 60 mg Ranitidine HCl (Zantac -) 150 mg PO DAILY [facility] Last Admin: 01/23/19 10:42 Dose: 150 mg Vancomycin HCl (Vancomycin Oral Solution) 125 mg PO Q6HPO [facility] Last Admin: 01/24/19 05:32 Dose: 125 mg - Objective Vital Signs: Vital Signs Temperature 98.1 F 01/24/19 06:00 Pulse Rate 77 01/24/19 06:00 Respiratory Rate 18 01/23/19 23:00 Blood Pressure 149/60 01/24/19 06:00 O2 Sat by Pulse Oximetry (%) 99 01/23/19 21:00 Extremities: Yes: Other (+granulatin left foot, +erythema, +mild tenderness, - drainage,) Labs: CBC, BMP 01/23/19 05:38 01/23/19 05:38 INR, PTT INR 1.07 (0.83-1.09) 01/17/19 20:20 Assessment/Plan grade 2-3 wound left foot DC Santyl dressing daily to left foot. Change to betadine daily. Do not believe cellulitis left foot. Patient has chronic erythema that varies daily most likely due to skin disorder associated with lupus. Will follow. reviwed xray and report.
[2019-01-24 08:13] LABS: BASO % 0.9 % (0-2.0); EOS % 3.7 % (0-4.5); HEMOGLOBIN 9.1 GM/dL (10.7-15.3); LYMPH % 26.2 % (8-40); MCH 25.4 pg (25.7-33.7); MCHC 31.3 g/dl (32.0-36.0); MEAN CELL VOLUME 81.3 fl (80-96); MEAN PLT VOLUME 9.3 fl (7.5-11.1); MONO % 9.6 % (3.8-10.2); NEUT % 59.6 % (42.8-82.8); PLATELET COUNT 363 K/MM3 (134-434); RBC 3.56 M/mm3 (3.60-5.2); RDW 18.9 % (11.6-15.6); WHITE BLOOD COUNT 9.7 K/mm3 (4.0-10.0)
--- NOTE | 2019-01-24 08:24 | PN ---
Progress Note, Physician Chief Complaint: less diarrhea over night, pain under right breast and under arm persists (along dermatone) History of Present Illness: Carol Trent is a 73 year old female with a past medical history of lupus (s/p lymphadenectomy, R renal stent), R BKA (s/p gangrene), PAD (b/l stents), CAD, HTN, HLD, anemia, hx of DVT who presents with a headache and chills. Patient stated that she has had a headache, photophobia, phonophobia, nausea, decreased appetite, lightheadedness, generalized weakness, neck pain since . Stated that the symptoms were progressively getting worse and day before admission she developed chills and at times felt like she might have a fever. Additionally, yesterday she noted that she began to have a painful and pruritic rash on her back and underneath her breast. She took Tylenol for the pain and had limited relief. She was getting worried that her symptoms were not remitting and she was beginning to feel very weak and not able to ambulate well and came to the hospital for further evaluation. Denied chest pain, shortness of breath, abdominal pain, vomiting, numbness/tingling, confusion, trauma, loss of consciousness, cough. Denied recent sick contacts, changes in medications, recent travel. Additionally, stated she had nasal congestion for about a week or more with rhinnorhea. PAST SURGICAL HISTORY: R kidney stent lymphadenectomy R BKA bilateral LE stents - Current Medication List Current Medications: Active Medications Acetaminophen (Tylenol -) 650 mg PO Q4H PRN PRN Reason: Fever Or Pain Last Admin: 01/23/19 23:57 Dose: 650 mg Al Hydroxide/Mg Hydroxide (Mylanta Suspension -) 30 ml PO Q6HPO PRN PRN Reason: INDIGESTION Aspirin (Asa -) 81 mg PO DAILY [facility] Last Admin: 01/23/19 10:42 Dose: 81 mg Calcium Carbonate (Os-Ryan 500mg -) 1,000 mg PO DAILY [facility] Last Admin: 01/23/19 10:43 Dose: 1,000 mg Cholecalciferol (Vitamin D3 -) 1,000 unit PO DAILY [facility] Last Admin: 01/23/19 10:42 Dose: 1,000 unit Collagenase (Santyl -) 1 applic TP DAILY [facility]; Protocol Last Admin: 01/23/19 18:14 Dose: 1 applic Gabapentin (Neurontin -) 900 mg PO TID [facility] Last Admin: 01/24/19 05:32 Dose: 900 mg Heparin Sodium (Porcine) (Heparin -) 5,000 unit SQ TID [facility] Last Admin: 01/24/19 05:32 Dose: 5,000 unit Hydroxychloroquine Sulfate (Plaquenil -) 200 mg PO DAILY [facility] Last Admin: 01/23/19 10:42 Dose: 200 mg Sodium Chloride (Normal Saline -) 1,000 mls @ 75 mls/hr IV ASDIR [facility] Last Admin: 01/23/19 18:13 Dose: 75 mls/hr Acyclovir 620 mg/ Dextrose 112.4 mls @ 112.4 mls/hr IVPB BID [facility] Last Admin: 01/23/19 22:53 Dose: 112.4 mls/hr Labetalol HCl (Normodyne -) 200 mg PO TID [facility] Last Admin: 01/24/19 05:31 Dose: 200 mg Lidocaine (Lidoderm Patch -) 1 patch TP DAILY [facility] Last Admin: 01/23/19 10:43 Dose: 1 patch Miscellaneous (Lidoderm Patch Removal) 1 each MC DAILY@2200 [facility] Last Admin: 01/23/19 23:03 Dose: 1 each Multivit/Ca Carb/B Cmplx/FA/Prenat (Nephro-Rebecca -) 1 tablet PO DAILY [facility] Last Admin: 01/23/19 10:42 Dose: 1 tablet Multivitamins/Minerals/Vitamin C (Tab-A-Vit -) 1 tab PO DAILY [facility] Last Admin: 01/23/19 10:42 Dose: 1 tab Nifedipine (Procardia Xl -) 60 mg PO BID [facility] Last Admin: 01/23/19 22:49 Dose: 60 mg Ranitidine HCl (Zantac -) 150 mg PO DAILY [facility] Last Admin: 01/23/19 10:42 Dose: 150 mg Vancomycin HCl (Vancomycin Oral Solution) 125 mg PO Q6HPO [facility] Last Admin: 01/24/19 05:32 Dose: 125 mg - Objective Vital Signs: Vital Signs Temperature 98.1 F 01/24/19 06:00 Pulse Rate 77 01/24/19 06:00 Respiratory Rate 18 01/23/19 23:00 Blood Pressure 149/60 01/24/19 06:00 O2 Sat by Pulse Oximetry (%) 99 01/23/19 21:00 Additional Findings/Remarks: Constitutional: Yes: Well Nourished, Mild Distress Eyes: Yes: WNL, Conjunctiva Clear HENT: Yes: WNL, Atraumatic, Normocephalic Neck: Yes: Tenderness (to neck) Cardiovascular: Yes: WNL, Regular Rate and Rhythm Respiratory: Yes: WNL, Regular, CTA Bilaterally Gastrointestinal: Yes: WNL, Normal Bowel Sounds ...Rectal Exam: Yes: Deferred Genitourinary: Yes: WNL Breast(s): Yes: Other (lesions as described) Musculoskeletal: Yes: Joint Stiffness, Muscle Pain Extremities: Yes: Other (right BKA, wound to Left foot) Edema: No Integumentary: Yes: Other (vesicular rash on back overlapping 2 dermatomes on the R side. Noted vesicular rash below the breast on the R side-crusting over L foot ulcer on medial aspect of foot observed.)) Neurological: Yes: WNL, Alert, Oriented ...Motor Strength: WNL Psychiatric: Yes: WNL Labs: CBC, BMP 01/24/19 06:10 INR, PTT INR 1.07 (0.83-1.09) 01/17/19 20:20 Problem List - Problems (1) CAD (coronary artery disease) Assessment/Plan: c/w asa Code(s): I25.10 - ATHSCL HEART DISEASE OF [place] CORONARY ARTERY W/O ANG PCTRS (2) History of DVT (deep vein thrombosis) Assessment/Plan: c/w heparin while non ambulatory Code(s): Z86.718 - PERSONAL HISTORY OF OTHER VENOUS THROMBOSIS AND EMBOLISM (3) PVD (peripheral vascular disease) Assessment/Plan: s/p R BKA Code(s): I73.9 - PERIPHERAL VASCULAR DISEASE, UNSPECIFIED (4) Amputated right leg Code(s): Z89.611 - ACQUIRED ABSENCE OF RIGHT LEG ABOVE KNEE (5) Anemia Assessment/Plan: hgb 9.1 continue to trend Code(s): D64.9 - ANEMIA, UNSPECIFIED Qualifiers: Anemia type: unspecified type Qualified Code(s): D64.9 - Anemia, unspecified (6) HTN (hypertension) Assessment/Plan: normotensive c/w home medications-labetolol,procardia Code(s): I10 - ESSENTIAL (PRIMARY) HYPERTENSION Qualifiers: Hypertension type: secondary to endocrine disorders Qualified Code(s): I15.2 - Hypertension secondary to endocrine disorders (7) Hyperlipidemia Assessment/Plan: c/w low fat/chol diet Code(s): E78.5 - HYPERLIPIDEMIA, UNSPECIFIED (8) Meningitis Assessment/Plan: - CSF preliminary showing 8 WBC (only lymphocytes), elevated protein count, normal glucose, consistent with possible viral meningitis - Viral panel for HSV and VZV in CSF pending - continue acyclovir 620mg q8h as per ID - continue ceftriaxone/ vanco dc'd by ID, monitor off abx -c/w isolation and airborne precautions - serum and CSF cryptococcal antigen negative -appreciate ID consulatation -appreciate neurology consultation-Dr Cabrera - respiratory viral panel negative Code(s): G03.9 - MENINGITIS, UNSPECIFIED (9) Shingles Assessment/Plan: c/w acyclovir-lesions starting to crust over c/o post herpatic pain c/w with gabapentin, tylenol Code(s): B02.9 - ZOSTER WITHOUT COMPLICATIONS Qualifiers: Herpes zoster complications: unspecified herpes zoster complication Qualified Code(s): B02.8 - Zoster with other complications (10) Prophylactic measure Assessment/Plan: FEN low fat/chol diet monitor electrolytes DVT heparin sq Dispo maintain as in patient isolations precautions full code discharge planning Code(s): Z29.9 - ENCOUNTER FOR PROPHYLACTIC MEASURES, UNSPECIFIED (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 Code(s): L97.529 - NON-PRESSURE CHRONIC ULCER OTH PRT LEFT FOOT W UNSP SEVERITY (13) Connective tissue disease Assessment/Plan: seen by rheumatology, appreciate consultation unlikely that diagnosis of SLE is accurate-- SHANKAR and anti-SSA positive with all other serology including ANCA negative and normal complement no need to treat with steroids Code(s): M35.9 - SYSTEMIC INVOLVEMENT OF CONNECTIVE TISSUE, UNSPECIFIED (14) Diarrhea Assessment/Plan: Cdif positive antigen c/w PO vanco Code(s): R19.7 - DIARRHEA, UNSPECIFIED (15) Fever Assessment/Plan: T 101.3 on 01/22, afebrile overnight Code(s): R50.9 - FEVER, UNSPECIFIED Qualifiers: Fever type: unspecified Qualified Code(s): R50.9 - Fever, unspecified Visit type - Emergency Visit Emergency Visit: Yes ED Registration Date: 01/18/19 Care time: The patient presented to the Emergency Department on the above date and was hospitalized for further evaluation of their emergent condition. - New Patient This patient is new to me today: No - Critical Care Critical Care patient: No - Discharge Referral Referred to [facility] Med P.C.: No
[2019-01-24 08:41] LABS: ALBUMIN 2.4 g/dl (3.4-5.0); BILIRUBIN,TOTAL 0.1 mg/dL (0.2-1); BLOOD UREA NITROGEN 6.9 mg/dL (7-18); CALCIUM 8.6 mg/dL (8.5-10.1); CREATININE 1.1 mg/dL (0.55-1.3); MAGNESIUM 2.3 mg/dL (1.8-2.4); POTASSIUM 3.9 mmol/L (3.5-5.1); TOT PROT 6.8 g/dl (6.4-8.2)
[2019-01-24] MEDS: RANITIDINE HCL 150 MG TABLET (FP) PO SCH (10:05)
[2019-01-24] MEDS: HYDROXYCHLOROQUINE SO4 200 MG TABLET (FP) PO SCH (10:05)
[2019-01-24] MEDS: NIFEdipine E.R 60 MG TABLET (UD) PO SCH ×2 (10:05→23:06)
[2019-01-24] MEDS: CHOLECALCIFEROL (VIT D3) 1,000 UNIT (25 MCG) TABLET PO SCH (10:05)
[2019-01-24] MEDS: ASPIRIN 81 MG CHEWABLE TABLETS PO SCH (10:05)
[2019-01-24] MEDS: VITAMIN B COMP W-C 1 EA TABLET PO SCH (10:05)
[2019-01-24] MEDS: LIDOCAINE 5% TOPICAL PATCH TP SCH (10:05)
[2019-01-24] MEDS: MULTIVITAMINS (DAILY MVI) TABLET (FP) PO SCH (10:05)
[2019-01-24] MEDS: CALCIUM (OYSTER SHELL) 500 MG TABLET (FP) PO SCH (10:11)
[2019-01-24] MEDS: COLLAGENASE CLOSTRIDIUM HIST. 30 GRAMS TUBE TP SCH (10:16)
[2019-01-24] MEDS: ACYCLOVIR INJECTION 620 MG in DEXTROSE 5%-WATER - 100 ML IVPB SCH ×2 (10:37→23:08)
[2019-01-24] MEDS: SODIUM CHLORIDE 1,000 ML IV SCH ×2 (11:28→12:16)
[2019-01-24] MEDS ORDERED: PT OWN MED DRAWER 7, Y5N ONE (12:06)
--- NOTE | 2019-01-24 17:55 | PN ---
Progress Note, Physician History of Present Illness: Pt alert, without distress, eating. Fevers and diarrhea resolved. Podiatry note reviewed. - Current Medication List Current Medications: Active Medications Acetaminophen (Tylenol -) 650 mg PO Q4H PRN PRN Reason: Fever Or Pain Last Admin: 01/23/19 23:57 Dose: 650 mg Al Hydroxide/Mg Hydroxide (Mylanta Suspension -) 30 ml PO Q6HPO PRN PRN Reason: INDIGESTION Aspirin (Asa -) 81 mg PO DAILY [facility] Last Admin: 01/24/19 10:05 Dose: 81 mg Calcium Carbonate (Os-Ryan 500mg -) 1,000 mg PO DAILY [facility] Last Admin: 01/24/19 10:11 Dose: 1,000 mg Cholecalciferol (Vitamin D3 -) 1,000 unit PO DAILY [facility] Last Admin: 01/24/19 10:05 Dose: 1,000 unit Collagenase (Santyl -) 1 applic TP DAILY [facility]; Protocol Last Admin: 01/24/19 10:16 Dose: Not Given Gabapentin (Neurontin -) 900 mg PO TID [facility] Last Admin: 01/24/19 13:57 Dose: 900 mg Heparin Sodium (Porcine) (Heparin -) 5,000 unit SQ TID [facility] Last Admin: 01/24/19 13:58 Dose: 5,000 unit Hydroxychloroquine Sulfate (Plaquenil -) 200 mg PO DAILY [facility] Last Admin: 01/24/19 10:05 Dose: 200 mg Sodium Chloride (Normal Saline -) 1,000 mls @ 75 mls/hr IV ASDIR [facility] Last Admin: 01/24/19 12:16 Dose: 75 mls/hr Acyclovir 620 mg/ Dextrose 112.4 mls @ 112.4 mls/hr IVPB BID [facility] Last Admin: 01/24/19 10:37 Dose: 112.4 mls/hr Labetalol HCl (Normodyne -) 200 mg PO TID [facility] Last Admin: 01/24/19 13:58 Dose: 200 mg Lidocaine (Lidoderm Patch -) 1 patch TP DAILY [facility] Last Admin: 01/24/19 10:05 Dose: 1 patch Miscellaneous (Lidoderm Patch Removal) 1 each MC DAILY@2200 [facility] Last Admin: 01/23/19 23:03 Dose: 1 each Multivit/Ca Carb/B Cmplx/FA/Prenat (Nephro-Rebecca -) 1 tablet PO DAILY [facility] Last Admin: 01/24/19 10:05 Dose: 1 tablet Multivitamins/Minerals/Vitamin C (Tab-A-Vit -) 1 tab PO DAILY [facility] Last Admin: 01/24/19 10:05 Dose: 1 tab Nifedipine (Procardia Xl -) 60 mg PO BID [facility] Last Admin: 01/24/19 10:05 Dose: 60 mg Ranitidine HCl (Zantac -) 150 mg PO DAILY [facility] Last Admin: 01/24/19 10:05 Dose: 150 mg Vancomycin HCl (Vancomycin Oral Solution) 125 mg PO Q6HPO [facility] Last Admin: 01/24/19 12:22 Dose: 125 mg - Objective Vital Signs: Vital Signs Temperature 98.4 F 01/24/19 17:17 Pulse Rate 78 01/24/19 17:17 Respiratory Rate 18 01/24/19 17:17 Blood Pressure 154/56 L 01/24/19 17:17 O2 Sat by Pulse Oximetry (%) 99 01/24/19 09:00 Constitutional: Yes: No Distress, Calm Cardiovascular: Yes: Regular Rate and Rhythm Respiratory: Yes: CTA Bilaterally Gastrointestinal: Yes: Normal Bowel Sounds, Soft Genitourinary: Yes: WNL Extremities: Yes: Amputation (RLE) Integumentary: Yes: Rash (vesicular rash drying) Neurological: Yes: Alert, Oriented Labs: CBC, BMP 01/24/19 06:10 01/24/19 06:10 INR, PTT INR 1.07 (0.83-1.09) 01/17/19 20:20 Microbiology 01/21/19 22:00 Stool Salmonella/Shigella Culture - Final Yeast Like Organism 01/21/19 22:00 Stool Campylobacter Culture - Final NO GROWTH OF CAMPYLOBACTER SPECIES OBTAINED 01/21/19 22:00 Stool Yersinia Culture - Final NO GROWTH OF YERSINIA SPECIES OBTAINED 01/21/19 22:00 Stool Vibrio Culture - Final NO GROWTH OF VIBRIO SPECIES OBTAINED 01/21/19 22:00 Stool Escherichia coli 0157 Culture - Final NO GROWTH OF E COLI 0157 OBTAINED 01/20/19 20:10 Blood - Peripheral Venous Blood Culture - Preliminary NO GROWTH OBTAINED AFTER 72 HOURS, INCUBATION TO CONTINUE FOR 2 DAYS. 01/20/19 20:10 Blood - Peripheral Venous Blood Culture - Preliminary NO GROWTH OBTAINED AFTER 72 HOURS, INCUBATION TO CONTINUE FOR 2 DAYS. 01/21/19 17:00 Urine - Urine Clean Catch Urine Culture - Final NO GROWTH OBTAINED 01/18/19 01:32 Cerebral Spinal Fluid - Lumbar Puncture Cryptococcal Antigen - Final 01/17/19 20:25 Blood - Peripheral Venous Blood Culture - Final NO GROWTH AFTER 5 DAYS INCUBATION 01/17/19 20:20 Blood - Peripheral Venous Blood Culture - Final NO GROWTH AFTER 5 DAYS INCUBATION 01/22/19 08:00 Stool Clostridioides difficile Antigen - Final 01/22/19 08:00 Stool Clostridioides difficile Toxin Assay - Final 01/18/19 01:32 Cerebral Spinal Fluid - Lumbar Puncture Gram Stain - Final 01/18/19 01:32 Cerebral Spinal Fluid - Lumbar Puncture CSF Culture - Final 01/18/19 02:25 Urine - Urine Clean Catch Urine Culture - Final Problem List - Problems (1) CAD (coronary artery disease) Code(s): I25.10 - ATHSCL HEART DISEASE OF [place] CORONARY ARTERY W/O ANG PCTRS (2) Connective tissue disease Code(s): M35.9 - SYSTEMIC INVOLVEMENT OF CONNECTIVE TISSUE, UNSPECIFIED (3) Diarrhea Code(s): R19.7 - DIARRHEA, UNSPECIFIED (4) Shingles Code(s): B02.9 - ZOSTER WITHOUT COMPLICATIONS Qualifiers: Herpes zoster complications: unspecified herpes zoster complication Qualified Code(s): B02.8 - Zoster with other complications (5) Fever Code(s): R50.9 - FEVER, UNSPECIFIED Qualifiers: Fever type: unspecified Qualified Code(s): R50.9 - Fever, unspecified (6) PVD (peripheral vascular disease) Code(s): I73.9 - PERIPHERAL VASCULAR DISEASE, UNSPECIFIED (7) Amputated right leg Code(s): Z89.611 - ACQUIRED ABSENCE OF RIGHT LEG ABOVE KNEE (8) HTN (hypertension) Code(s): I10 - ESSENTIAL (PRIMARY) HYPERTENSION Qualifiers: Hypertension type: secondary to endocrine disorders Qualified Code(s): I15.2 - Hypertension secondary to endocrine disorders (9) Lupus (systemic lupus erythematosus) Code(s): M32.9 - SYSTEMIC LUPUS ERYTHEMATOSUS, UNSPECIFIED Assessment/Plan Fever - resolved Leukocytosis - resolved Diarrhea - C.diff Ag positive / toxin negative - resolving Herpes zoster Viral meningitis -- continue Acyclovir IV -- continue Vancomycin PO -- blood cultures neg 72hr , UCx neg -- continue monitor vitals -- continue isolation Pt appears stable, improving at this time
[2019-01-24] MEDS: ACETAMINOPHEN 325 MG TABLET (FP) PO PRN (23:04)
[2019-01-25] MEDS: LIDOCAINE PATCH REMOVAL MC SCH ×2 (01:34→21:56)
[2019-01-25] MEDS: SODIUM CHLORIDE 1,000 ML IV SCH (05:35)
[2019-01-25] MEDS: HEPARIN NA (PORCINE) 5,000 UNITS/ML 1ML VIAL SQ SCH ×3 (05:36→21:56)
[2019-01-25] MEDS: GABAPENTIN 300 MG CAPSULE (FP) PO SCH ×3 (05:36→21:55)
[2019-01-25] MEDS: VANCOMYCIN 250 MG/5 ML ORAL SOLUTION PO SCH ×3 (05:37→18:11)
[2019-01-25] MEDS: LABETALOL HCL 100 MG TABLET (FP) PO SCH ×3 (05:37→21:56)
--- NOTE | 2019-01-25 10:30 | PN ---
Progress Note, Physician History of Present Illness: stable doing well - Current Medication List Current Medications: Active Medications Acetaminophen (Tylenol -) 650 mg PO Q4H PRN PRN Reason: Fever Or Pain Last Admin: 01/24/19 23:04 Dose: 650 mg Al Hydroxide/Mg Hydroxide (Mylanta Suspension -) 30 ml PO Q6HPO PRN PRN Reason: INDIGESTION Aspirin (Asa -) 81 mg PO DAILY [facility] Last Admin: 01/24/19 10:05 Dose: 81 mg Calcium Carbonate (Os-Ryan 500mg -) 1,000 mg PO DAILY [facility] Last Admin: 01/24/19 10:11 Dose: 1,000 mg Cholecalciferol (Vitamin D3 -) 1,000 unit PO DAILY [facility] Last Admin: 01/24/19 10:05 Dose: 1,000 unit Collagenase (Santyl -) 1 applic TP DAILY [facility]; Protocol Last Admin: 01/24/19 10:16 Dose: Not Given Gabapentin (Neurontin -) 900 mg PO TID [facility] Last Admin: 01/25/19 05:36 Dose: 900 mg Heparin Sodium (Porcine) (Heparin -) 5,000 unit SQ TID [facility] Last Admin: 01/25/19 05:36 Dose: 5,000 unit Hydroxychloroquine Sulfate (Plaquenil -) 200 mg PO DAILY [facility] Last Admin: 01/24/19 10:05 Dose: 200 mg Sodium Chloride (Normal Saline -) 1,000 mls @ 75 mls/hr IV ASDIR [facility] Last Admin: 01/25/19 05:35 Dose: 75 mls/hr Acyclovir 620 mg/ Dextrose 112.4 mls @ 112.4 mls/hr IVPB BID [facility] Last Admin: 01/24/19 23:08 Dose: 112.4 mls/hr Labetalol HCl (Normodyne -) 200 mg PO TID [facility] Last Admin: 01/25/19 05:37 Dose: 200 mg Lidocaine (Lidoderm Patch -) 1 patch TP DAILY [facility] Last Admin: 01/24/19 10:05 Dose: 1 patch Miscellaneous (Lidoderm Patch Removal) 1 each MC DAILY@2200 [facility] Last Admin: 01/25/19 01:34 Dose: 1 each Multivit/Ca Carb/B Cmplx/FA/Prenat (Nephro-Rebecca -) 1 tablet PO DAILY [facility] Last Admin: 01/24/19 10:05 Dose: 1 tablet Multivitamins/Minerals/Vitamin C (Tab-A-Vit -) 1 tab PO DAILY [facility] Last Admin: 01/24/19 10:05 Dose: 1 tab Nifedipine (Procardia Xl -) 60 mg PO BID [facility] Last Admin: 01/24/19 23:06 Dose: 60 mg Ranitidine HCl (Zantac -) 150 mg PO DAILY [facility] Last Admin: 01/24/19 10:05 Dose: 150 mg Vancomycin HCl (Vancomycin Oral Solution) 125 mg PO Q6HPO [facility] Last Admin: 01/25/19 05:37 Dose: 125 mg - Objective Vital Signs: Vital Signs Temperature 98.8 F 01/25/19 01:00 Pulse Rate 77 01/25/19 01:00 Respiratory Rate 18 01/25/19 01:00 Blood Pressure 135/50 L 01/25/19 01:00 O2 Sat by Pulse Oximetry (%) 98 01/24/19 21:00 Constitutional: Yes: No Distress, Calm Cardiovascular: Yes: S1, S2 Respiratory: Yes: Regular, CTA Bilaterally Gastrointestinal: Yes: Normal Bowel Sounds, Soft Musculoskeletal: Yes: WNL Extremities: Yes: Other Neurological: Yes: Alert, Oriented Psychiatric: Yes: Alert, Oriented Labs: CBC, BMP 01/24/19 06:10 01/24/19 06:10 INR, PTT INR 1.07 (0.83-1.09) 01/17/19 20:20 Assessment/Plan Problem List - Problems (1) CAD (coronary artery disease) Code(s): I25.10 - ATHSCL HEART DISEASE OF [place] CORONARY ARTERY W/O ANG PCTRS (2) Connective tissue disease Code(s): M35.9 - SYSTEMIC INVOLVEMENT OF CONNECTIVE TISSUE, UNSPECIFIED (3) Diarrhea Code(s): R19.7 - DIARRHEA, UNSPECIFIED (4) Shingles Code(s): B02.9 - ZOSTER WITHOUT COMPLICATIONS Qualifiers: Herpes zoster complications: unspecified herpes zoster complication Qualified Code(s): B02.8 - Zoster with other complications (5) Fever Code(s): R50.9 - FEVER, UNSPECIFIED Qualifiers: Fever type: unspecified Qualified Code(s): R50.9 - Fever, unspecified (6) PVD (peripheral vascular disease) Code(s): I73.9 - PERIPHERAL VASCULAR DISEASE, UNSPECIFIED (7) Amputated right leg Code(s): Z89.611 - ACQUIRED ABSENCE OF RIGHT LEG ABOVE KNEE (8) HTN (hypertension) Code(s): I10 - ESSENTIAL (PRIMARY) HYPERTENSION Qualifiers: Hypertension type: secondary to endocrine disorders Qualified Code(s): I15.2 - Hypertension secondary to endocrine disorders (9) Lupus (systemic lupus erythematosus) Code(s): M32.9 - SYSTEMIC LUPUS ERYTHEMATOSUS, UNSPECIFIED Assessment/Plan Fever - resolved Leukocytosis - resolved Diarrhea - C.diff Ag positive / toxin negative - resolving Herpes zoster Viral meningitis -- continue Acyclovir IV -- continue Vancomycin PO
[2019-01-25] MEDS: LIDOCAINE 5% TOPICAL PATCH TP SCH (10:55)
[2019-01-25] MEDS: CALCIUM (OYSTER SHELL) 500 MG TABLET (FP) PO SCH (10:56)
[2019-01-25] MEDS: RANITIDINE HCL 150 MG TABLET (FP) PO SCH (10:56)
[2019-01-25] MEDS: MULTIVITAMINS (DAILY MVI) TABLET (FP) PO SCH (10:56)
[2019-01-25] MEDS: NIFEdipine E.R 60 MG TABLET (UD) PO SCH ×2 (10:56→21:56)
[2019-01-25] MEDS: CHOLECALCIFEROL (VIT D3) 1,000 UNIT (25 MCG) TABLET PO SCH (10:56)
[2019-01-25] MEDS: ASPIRIN 81 MG CHEWABLE TABLETS PO SCH (10:56)
[2019-01-25] MEDS: HYDROXYCHLOROQUINE SO4 200 MG TABLET (FP) PO SCH (10:56)
[2019-01-25] MEDS: VITAMIN B COMP W-C 1 EA TABLET PO SCH (10:56)
[2019-01-25] MEDS: ACYCLOVIR INJECTION 620 MG in DEXTROSE 5%-WATER - 100 ML IVPB SCH ×2 (10:57→23:06)
[2019-01-25 11:58] LABS: HEMATOCRIT 28.5 % (32.4-45.2); HEMOGLOBIN 9.2 GM/dL (10.7-15.3); MCH 25.7 pg (25.7-33.7); MCHC 32.2 g/dl (32.0-36.0); MEAN CELL VOLUME 79.7 fl (80-96); MEAN PLT VOLUME 8.4 fl (7.5-11.1); PLATELET COUNT 399 K/MM3 (134-434); RBC 3.58 M/mm3 (3.60-5.2); RDW 18.8 % (11.6-15.6); WHITE BLOOD COUNT 9.9 K/mm3 (4.0-10.0)
[2019-01-25 12:32] LABS: ALBUMIN 2.6 g/dl (3.4-5.0); BILIRUBIN,TOTAL 0.2 mg/dL (0.2-1); BLOOD UREA NITROGEN 6.5 mg/dL (7-18); CALCIUM 9.2 mg/dL (8.5-10.1); CREATININE 1.1 mg/dL (0.55-1.3); POTASSIUM 3.8 mmol/L (3.5-5.1); TOT PROT 7.3 g/dl (6.4-8.2)
[2019-01-25] MEDS: COLLAGENASE CLOSTRIDIUM HIST. 30 GRAMS TUBE TP SCH (17:29)
[2019-01-25] MEDS ORDERED: POTASSIUM CHLORIDE TABS 10 MEQ TABLET.ER (FP) PO ONE (19:00)
--- NOTE | 2019-01-25 19:12 | PN ---
Progress Note, Physician Chief Complaint: 24 HR -no complaints, anxious to go home - Current Medication List Current Medications: Active Medications Acetaminophen (Tylenol -) 650 mg PO Q4H PRN PRN Reason: Fever Or Pain Last Admin: 01/24/19 23:04 Dose: 650 mg Al Hydroxide/Mg Hydroxide (Mylanta Suspension -) 30 ml PO Q6HPO PRN PRN Reason: INDIGESTION Aspirin (Asa -) 81 mg PO DAILY [facility] Last Admin: 01/25/19 10:56 Dose: 81 mg Calcium Carbonate (Os-Ryan 500mg -) 1,000 mg PO DAILY [facility] Last Admin: 01/25/19 10:56 Dose: 1,000 mg Cholecalciferol (Vitamin D3 -) 1,000 unit PO DAILY [facility] Last Admin: 01/25/19 10:56 Dose: 1,000 unit Collagenase (Santyl -) 1 applic TP DAILY [facility]; Protocol Last Admin: 01/25/19 17:29 Dose: Not Given Gabapentin (Neurontin -) 900 mg PO TID [facility] Last Admin: 01/25/19 14:52 Dose: 900 mg Heparin Sodium (Porcine) (Heparin -) 5,000 unit SQ TID [facility] Last Admin: 01/25/19 14:53 Dose: 5,000 unit Hydroxychloroquine Sulfate (Plaquenil -) 200 mg PO DAILY [facility] Last Admin: 01/25/19 10:56 Dose: 200 mg Sodium Chloride (Normal Saline -) 1,000 mls @ 75 mls/hr IV ASDIR [facility] Last Admin: 01/25/19 05:35 Dose: 75 mls/hr Acyclovir 620 mg/ Dextrose 112.4 mls @ 112.4 mls/hr IVPB BID [facility] Last Admin: 01/25/19 10:57 Dose: 112.4 mls/hr Labetalol HCl (Normodyne -) 200 mg PO TID [facility] Last Admin: 01/25/19 14:53 Dose: 200 mg Lidocaine (Lidoderm Patch -) 1 patch TP DAILY [facility] Last Admin: 01/25/19 10:55 Dose: 1 patch Miscellaneous (Lidoderm Patch Removal) 1 each MC DAILY@2200 [facility] Last Admin: 01/25/19 01:34 Dose: 1 each Multivit/Ca Carb/B Cmplx/FA/Prenat (Nephro-Rebecca -) 1 tablet PO DAILY [facility] Last Admin: 01/25/19 10:56 Dose: 1 tablet Multivitamins/Minerals/Vitamin C (Tab-A-Vit -) 1 tab PO DAILY [facility] Last Admin: 01/25/19 10:56 Dose: 1 tab Nifedipine (Procardia Xl -) 60 mg PO BID [facility] Last Admin: 01/25/19 10:56 Dose: 60 mg Potassium Chloride (K-Dur -) 20 meq PO ONCE ONE Stop: 01/25/19 19:01 Ranitidine HCl (Zantac -) 150 mg PO DAILY [facility] Last Admin: 01/25/19 10:56 Dose: 150 mg Vancomycin HCl (Vancomycin Oral Solution) 125 mg PO Q6HPO [facility] Last Admin: 01/25/19 18:11 Dose: 125 mg - Objective Vital Signs: Vital Signs Temperature 98.1 F 01/25/19 18:14 Pulse Rate 80 01/25/19 18:14 Respiratory Rate 18 01/25/19 18:14 Blood Pressure 154/48 L 01/25/19 18:14 O2 Sat by Pulse Oximetry (%) 98 01/25/19 09:00 Constitutional: Yes: Well Nourished, No Distress, Calm Eyes: Yes: Conjunctiva Clear, PERRL HENT: Yes: Atraumatic, Normocephalic Neck: Yes: Supple Cardiovascular: Yes: Regular Rate and Rhythm Respiratory: Yes: Regular, CTA Bilaterally Gastrointestinal: Yes: Normal Bowel Sounds, Soft ...Rectal Exam: Yes: Deferred Musculoskeletal: Yes: Other (Right leg posthesis) Edema: No Peripheral Pulses WNL: Yes Peripheral Pulses: Left Radial: 2+, Right Radial: 2+ Integumentary: Yes: Other (posterior and right breast lesions mostly crusted over) ...Motor Strength: WNL Psychiatric: Yes: Alert, Oriented Labs: CBC, BMP 01/25/19 11:27 01/25/19 11:27 INR, PTT INR 1.07 (0.83-1.09) 01/17/19 20:20 Impression/Plan Impression/Plan: 73 year old female with a past medical history of lupus (s/p lymphadenectomy, R renal stent), R BKA (s/p gangrene), PAD (b/l stents), CAD, HTN, HLD, anemia, hx of DVT who presented with a headache and chills, photophobia, phonophobia, nausea, decreased appetite, lightheadedness, generalized weakness noted to have varicella zoster (shingles) infection. (1) CAD (coronary artery disease) c/w asa Code(s): I25.10 - ATHSCL HEART DISEASE OF [place] CORONARY ARTERY W/O ANG PCTRS (2) History of DVT (deep vein thrombosis) c/w heparin SC Code(s): Z86.718 - PERSONAL HISTORY OF OTHER VENOUS THROMBOSIS AND EMBOLISM (3) Anemia - stable -trend H/H Code(s): D64.9 - ANEMIA, UNSPECIFIED Qualifiers: Anemia type: unspecified type Qualified Code(s): D64.9 - Anemia, unspecified (4) HTN (hypertension) c/w home medications-labetolol, procardia Code(s): I10 - ESSENTIAL (PRIMARY) HYPERTENSION Qualifiers: Hypertension type: secondary to endocrine disorders Qualified Code (s): I15.2 - Hypertension secondary to endocrine disorders (5) Hyperlipidemia c/w low fat/chol diet Code(s): E78.5 - HYPERLIPIDEMIA, UNSPECIFIED (6) Shingles c/w acyclovir-lesions starting to crust over c/o post herpatic pain c/w with gabapentin, tylenol c/w isolation and airborne precautions serum and CSF cryptococcal antigen negative appreciate ID consultation appreciate neurology consultation-Dr Cabrera respiratory viral panel negative Code(s): B02.9 - ZOSTER WITHOUT COMPLICATIONS Qualifiers: Herpes zoster complications: unspecified herpes zoster complication Qualified Code(s): B02.8 - Zoster with other complications (7) Foot ulcer, left appreciate podiatry consultation grade 2-3 wound left foot dressing betadine to left foot. Code(s): L97.529 - NON-PRESSURE CHRONIC ULCER OTH PRT LEFT FOOT W UNSP SEVERITY (8) Connective tissue disease seen by rheumatology, appreciate consultation unlikely that diagnosis of SLE is accurate-- SHANKAR and anti-SSA positive with all other serology including ANCA negative and normal complement no need to treat with steroids Code(s): M35.9 - SYSTEMIC INVOLVEMENT OF CONNECTIVE TISSUE, UNSPECIFIED (9) c.diff c/w PO vanco Code(s): R19.7 - DIARRHEA, UNSPECIFIED (10) Prophylactic measure c/w daily MVI, oscal +D Zantac daily low fat/chol diet monitor electrolytes DVT -heparin sq Dispo -maintain as in patient isolations precautions full code discharge planning Code(s): Z29.9 - ENCOUNTER FOR PROPHYLACTIC MEASURES, UNSPECIFIED Visit type - Emergency Visit Emergency Visit: Yes ED Registration Date: 01/18/19 Care time: The patient presented to the Emergency Department on the above date and was hospitalized for further evaluation of their emergent condition. - New Patient This patient is new to me today: Yes Date on this admission: 01/25/19 - Critical Care Critical Care patient: No - Discharge Referral Referred to [facility] No
[2019-01-25] MEDS: ACETAMINOPHEN 325 MG TABLET (FP) PO PRN (21:55)
[2019-01-26] MEDS: VANCOMYCIN 250 MG/5 ML ORAL SOLUTION PO SCH ×4 (01:48→17:02)
[2019-01-26] MEDS: LABETALOL HCL 100 MG TABLET (FP) PO SCH ×2 (06:21→13:38)
[2019-01-26] MEDS: GABAPENTIN 300 MG CAPSULE (FP) PO SCH ×2 (06:21→13:38)
[2019-01-26] MEDS: HEPARIN NA (PORCINE) 5,000 UNITS/ML 1ML VIAL SQ SCH ×2 (06:21→13:38)
--- NOTE | 2019-01-26 07:30 | PN ---
Progress Note, Physician History of Present Illness: stable doing well c/o of pain in the leg when she wears the shoes - Current Medication List Current Medications: Active Medications Acetaminophen (Tylenol -) 650 mg PO Q4H PRN PRN Reason: Fever Or Pain Last Admin: 01/25/19 21:55 Dose: 650 mg Al Hydroxide/Mg Hydroxide (Mylanta Suspension -) 30 ml PO Q6HPO PRN PRN Reason: INDIGESTION Aspirin (Asa -) 81 mg PO DAILY [facility] Last Admin: 01/25/19 10:56 Dose: 81 mg Calcium Carbonate (Os-Ryan 500mg -) 1,000 mg PO DAILY [facility] Last Admin: 01/25/19 10:56 Dose: 1,000 mg Cholecalciferol (Vitamin D3 -) 1,000 unit PO DAILY [facility] Last Admin: 01/25/19 10:56 Dose: 1,000 unit Collagenase (Santyl -) 1 applic TP DAILY [facility]; Protocol Last Admin: 01/25/19 17:29 Dose: Not Given Gabapentin (Neurontin -) 900 mg PO TID [facility] Last Admin: 01/26/19 06:21 Dose: 900 mg Heparin Sodium (Porcine) (Heparin -) 5,000 unit SQ TID [facility] Last Admin: 01/26/19 06:21 Dose: 5,000 unit Hydroxychloroquine Sulfate (Plaquenil -) 200 mg PO DAILY [facility] Last Admin: 01/25/19 10:56 Dose: 200 mg Sodium Chloride (Normal Saline -) 1,000 mls @ 75 mls/hr IV ASDIR [facility] Last Admin: 01/25/19 05:35 Dose: 75 mls/hr Acyclovir 620 mg/ Dextrose 112.4 mls @ 112.4 mls/hr IVPB BID [facility] Last Admin: 01/25/19 23:06 Dose: 112.4 mls/hr Labetalol HCl (Normodyne -) 200 mg PO TID [facility] Last Admin: 01/26/19 06:21 Dose: 200 mg Lidocaine (Lidoderm Patch -) 1 patch TP DAILY [facility] Last Admin: 01/25/19 10:55 Dose: 1 patch Miscellaneous (Lidoderm Patch Removal) 1 each MC DAILY@2200 [facility] Last Admin: 01/25/19 21:56 Dose: 1 each Multivit/Ca Carb/B Cmplx/FA/Prenat (Nephro-Rebecca -) 1 tablet PO DAILY [facility] Last Admin: 01/25/19 10:56 Dose: 1 tablet Multivitamins/Minerals/Vitamin C (Tab-A-Vit -) 1 tab PO DAILY [facility] Last Admin: 01/25/19 10:56 Dose: 1 tab Nifedipine (Procardia Xl -) 60 mg PO BID [facility] Last Admin: 01/25/19 21:56 Dose: 60 mg Ranitidine HCl (Zantac -) 150 mg PO DAILY [facility] Last Admin: 01/25/19 10:56 Dose: 150 mg Vancomycin HCl (Vancomycin Oral Solution) 125 mg PO Q6HPO [facility] Last Admin: 01/26/19 06:20 Dose: 125 mg - Objective Vital Signs: Vital Signs Temperature 98.1 F 01/26/19 06:00 Pulse Rate 81 01/26/19 06:00 Respiratory Rate 20 01/26/19 06:00 Blood Pressure 160/64 01/26/19 06:00 O2 Sat by Pulse Oximetry (%) 98 01/25/19 21:00 Constitutional: Yes: Calm, Mild Distress Neck: Yes: Supple Cardiovascular: Yes: Regular Rate and Rhythm Respiratory: Yes: Regular, CTA Bilaterally Gastrointestinal: Yes: Normal Bowel Sounds, Soft Musculoskeletal: Yes: Other Extremities: Yes: Other Integumentary: Yes: Rash (rash) Neurological: Yes: Alert, Oriented Psychiatric: Yes: Alert, Oriented Labs: CBC, BMP 01/25/19 11:27 01/25/19 11:27 INR, PTT INR 1.07 (0.83-1.09) 01/17/19 20:20 Assessment/Plan Problem List - Problems (1) CAD (coronary artery disease) Code(s): I25.10 - ATHSCL HEART DISEASE OF [place] CORONARY ARTERY W/O ANG PCTRS (2) Connective tissue disease Code(s): M35.9 - SYSTEMIC INVOLVEMENT OF CONNECTIVE TISSUE, UNSPECIFIED (3) Diarrhea Code(s): R19.7 - DIARRHEA, UNSPECIFIED (4) Shingles Code(s): B02.9 - ZOSTER WITHOUT COMPLICATIONS Qualifiers: Herpes zoster complications: unspecified herpes zoster complication Qualified Code(s): B02.8 - Zoster with other complications (5) Fever Code(s): R50.9 - FEVER, UNSPECIFIED Qualifiers: Fever type: unspecified Qualified Code(s): R50.9 - Fever, unspecified (6) PVD (peripheral vascular disease) Code(s): I73.9 - PERIPHERAL VASCULAR DISEASE, UNSPECIFIED (7) Amputated right leg Code(s): Z89.611 - ACQUIRED ABSENCE OF RIGHT LEG ABOVE KNEE (8) HTN (hypertension) Code(s): I10 - ESSENTIAL (PRIMARY) HYPERTENSION Qualifiers: Hypertension type: secondary to endocrine disorders Qualified Code(s): I15.2 - Hypertension secondary to endocrine disorders (9) Lupus (systemic lupus erythematosus) Code(s): M32.9 - SYSTEMIC LUPUS ERYTHEMATOSUS, UNSPECIFIED Assessment/Plan Fever - resolved Leukocytosis - resolved Diarrhea - C.diff Ag positive / toxin negative - resolving Herpes zoster Viral meningitis can change acylovir to oral for another couple of days also complete 2 weeks of vanco po shoes for the leg adjustment
--- NOTE | 2019-01-26 08:32 | PN ---
Progress Note, Physician Chief Complaint: wound left foot - Current Medication List Current Medications: Active Medications Acetaminophen (Tylenol -) 650 mg PO Q4H PRN PRN Reason: Fever Or Pain Last Admin: 01/25/19 21:55 Dose: 650 mg Al Hydroxide/Mg Hydroxide (Mylanta Suspension -) 30 ml PO Q6HPO PRN PRN Reason: INDIGESTION Aspirin (Asa -) 81 mg PO DAILY [facility] Last Admin: 01/25/19 10:56 Dose: 81 mg Calcium Carbonate (Os-Ryan 500mg -) 1,000 mg PO DAILY [facility] Last Admin: 01/25/19 10:56 Dose: 1,000 mg Cholecalciferol (Vitamin D3 -) 1,000 unit PO DAILY [facility] Last Admin: 01/25/19 10:56 Dose: 1,000 unit Collagenase (Santyl -) 1 applic TP DAILY [facility]; Protocol Last Admin: 01/25/19 17:29 Dose: Not Given Gabapentin (Neurontin -) 900 mg PO TID [facility] Last Admin: 01/26/19 06:21 Dose: 900 mg Heparin Sodium (Porcine) (Heparin -) 5,000 unit SQ TID [facility] Last Admin: 01/26/19 06:21 Dose: 5,000 unit Hydroxychloroquine Sulfate (Plaquenil -) 200 mg PO DAILY [facility] Last Admin: 01/25/19 10:56 Dose: 200 mg Sodium Chloride (Normal Saline -) 1,000 mls @ 75 mls/hr IV ASDIR [facility] Last Admin: 01/25/19 05:35 Dose: 75 mls/hr Acyclovir 620 mg/ Dextrose 112.4 mls @ 112.4 mls/hr IVPB BID [facility] Last Admin: 01/25/19 23:06 Dose: 112.4 mls/hr Labetalol HCl (Normodyne -) 200 mg PO TID [facility] Last Admin: 01/26/19 06:21 Dose: 200 mg Lidocaine (Lidoderm Patch -) 1 patch TP DAILY [facility] Last Admin: 01/25/19 10:55 Dose: 1 patch Miscellaneous (Lidoderm Patch Removal) 1 each MC DAILY@2200 [facility] Last Admin: 01/25/19 21:56 Dose: 1 each Multivit/Ca Carb/B Cmplx/FA/Prenat (Nephro-Rebecca -) 1 tablet PO DAILY [facility] Last Admin: 01/25/19 10:56 Dose: 1 tablet Multivitamins/Minerals/Vitamin C (Tab-A-Vit -) 1 tab PO DAILY [facility] Last Admin: 01/25/19 10:56 Dose: 1 tab Nifedipine (Procardia Xl -) 60 mg PO BID [facility] Last Admin: 01/25/19 21:56 Dose: 60 mg Ranitidine HCl (Zantac -) 150 mg PO DAILY [facility] Last Admin: 01/25/19 10:56 Dose: 150 mg Vancomycin HCl (Vancomycin Oral Solution) 125 mg PO Q6HPO [facility] Last Admin: 01/26/19 06:20 Dose: 125 mg - Objective Vital Signs: Vital Signs Temperature 98.1 F 01/26/19 06:00 Pulse Rate 81 01/26/19 06:00 Respiratory Rate 20 01/26/19 06:00 Blood Pressure 160/64 01/26/19 06:00 O2 Sat by Pulse Oximetry (%) 98 01/25/19 21:00 Extremities: Yes: Other (+greatly improved wound left foot, +erythema, -mal odor , +grade 1) Labs: CBC, BMP 01/25/19 11:27 01/25/19 11:27 INR, PTT INR 1.07 (0.83-1.09) 01/17/19 20:20 Assessment/Plan grade 1 wound left foot DC Betadine daily to left foot. Change back to Santyl. Will follow till dc.
[2019-01-26] MEDS ORDERED: COLLAGENASE CLOSTRIDIUM HIST. 30 GRAMS TUBE TP SCH (08:34)
--- NOTE | 2019-01-26 08:49 | PN ---
Progress Note (short form) - Note Progress Note: Neurology CHIEF COMPLAINT: headache and chills PCP: Dr. Yaya Montoya HISTORY OF PRESENT ILLNESS: Carol Trent is a 73 year old female with a past medical history of lupus (s/p lymphadenectomy, R renal stent), R BKA (s/p gangrene), PAD (b/l stents), CAD, HTN, HLD, anemia, hx of DVT who presents with a headache and chills. Patient stated that she has had a headache, photophobia, phonophobia, nausea, decreased appetite, lightheadedness, generalized weakness, neck pain since previous week. Stated that the symptoms were progressively getting worse and day before admission she developed chills and at times felt like she might have a fever. Additionally, yesterday she noted that she began to have a painful and pruritic rash on her back and underneath her breast. She took Tylenol for the pain and had limited relief. She was getting worried that her symptoms were not remitting and she was beginning to feel very weak and not able to ambulate well and came to the hospital for further evaluation. Denied chest pain, shortness of breath, abdominal pain, vomiting, numbness/tingling, confusion, trauma, loss of consciousness, cough. Denied recent sick contacts, changes in medications, recent travel. Additionally, stated she had nasal congestion for about a week or more with rhinnorhea. In the ER, found to have WBC 11.4, CRE 1.3 (baseline 1.0-1.1). CT head with no acute pathology, CXR with no acute pathology. There was a concern for meningitis and therefore lumbar puncture was performed, CSF results reviewed and demonstrated white blood cells of 8 as well as increased protein to 86, glucose of 47 (normal range). This appears to consistent with viral meningitis. Weekend notes reviewed, reports feeling better. States she has not been having fevers or chills and states ID may be considering discharge planning for the next day or two. Active Medications Acetaminophen (Tylenol -) 650 mg PO Q4H PRN PRN Reason: Fever Or Pain Last Admin: 01/25/19 21:55 Dose: 650 mg Al Hydroxide/Mg Hydroxide (Mylanta Suspension -) 30 ml PO Q6HPO PRN PRN Reason: INDIGESTION Aspirin (Asa -) 81 mg PO DAILY [facility] Last Admin: 01/25/19 10:56 Dose: 81 mg Calcium Carbonate (Os-Ryan 500mg -) 1,000 mg PO DAILY [facility] Last Admin: 01/25/19 10:56 Dose: 1,000 mg Cholecalciferol (Vitamin D3 -) 1,000 unit PO DAILY [facility] Last Admin: 01/25/19 10:56 Dose: 1,000 unit Collagenase (Santyl -) 1 applic TP DAILY [facility]; Protocol Gabapentin (Neurontin -) 900 mg PO TID [facility] Last Admin: 01/26/19 06:21 Dose: 900 mg Heparin Sodium (Porcine) (Heparin -) 5,000 unit SQ TID [facility] Last Admin: 01/26/19 06:21 Dose: 5,000 unit Hydroxychloroquine Sulfate (Plaquenil -) 200 mg PO DAILY [facility] Last Admin: 01/25/19 10:56 Dose: 200 mg Sodium Chloride (Normal Saline -) 1,000 mls @ 75 mls/hr IV ASDIR [facility] Last Admin: 01/25/19 05:35 Dose: 75 mls/hr Acyclovir 620 mg/ Dextrose 112.4 mls @ 112.4 mls/hr IVPB BID [facility] Last Admin: 01/25/19 23:06 Dose: 112.4 mls/hr Labetalol HCl (Normodyne -) 200 mg PO TID [facility] Last Admin: 01/26/19 06:21 Dose: 200 mg Lidocaine (Lidoderm Patch -) 1 patch TP DAILY [facility] Last Admin: 01/25/19 10:55 Dose: 1 patch Miscellaneous (Lidoderm Patch Removal) 1 each MC DAILY@2200 [facility] Last Admin: 01/25/19 21:56 Dose: 1 each Multivit/Ca Carb/B Cmplx/FA/Prenat (Nephro-Rebecca -) 1 tablet PO DAILY [facility] Last Admin: 01/25/19 10:56 Dose: 1 tablet Multivitamins/Minerals/Vitamin C (Tab-A-Vit -) 1 tab PO DAILY [facility] Last Admin: 01/25/19 10:56 Dose: 1 tab Nifedipine (Procardia Xl -) 60 mg PO BID [facility] Last Admin: 01/25/19 21:56 Dose: 60 mg Ranitidine HCl (Zantac -) 150 mg PO DAILY [facility] Last Admin: 01/25/19 10:56 Dose: 150 mg Vancomycin HCl (Vancomycin Oral Solution) 125 mg PO Q6HPO [facility] Last Admin: 01/26/19 06:20 Dose: 125 mg PHYSICAL EXAMINATION Vital Signs Period Temp Pulse Resp BP Sys/[place] Pulse Ox Last 24 Hr 97.6 F-98.5 F 76-85 18-20 140-165/48-72 98-98 GENERAL: Awake, alert, and fully oriented, in moderate acute distress. Shivering in bed. HEAD: Normal with no signs of trauma. EYES: Pupils equal, round and reactive to light, extraocular movements intact, conjunctival injection. EARS, NOSE, THROAT: Oropharynx clear without exudates. Dry mucous membranes. NECK: Neck stiffness, decreased range of motion. LUNGS: Breath sounds equal, clear to auscultation bilaterally. No wheezes, and no crackles. No accessory muscle use. HEART: Regular rate and rhythm, normal S1 and S2 without murmur, rub. ABDOMEN: Soft, nontender, not distended, normoactive bowel sounds, no guarding, no rebound, no masses. MUSCULOSKELETAL: Normal range of motion at all joints. Tender at joints when moving. UPPER EXTREMITIES: 2+ pulses, warm, well-perfused. No cyanosis. No clubbing. No peripheral edema. LOWER EXTREMITIES: 1+ pulse on L difficult to palpate, cool, well-perfused. Tender to palpation throughout, no peripheral edema. R BKA noted with prosthesis. NEUROLOGICAL: Cranial nerves II-XII intact. 4/5 muscle strength throughout, R BKA. PSYCHIATRIC: Cooperative. Good eye contact. Appropriate mood and affect. SKIN: Warm, dry, normal turgor CBCD WBC 9.9 K/mm3 (4.0-10.0) 01/25/19 11:27 RBC 3.58 M/mm3 (3.60-5.2) L 01/25/19 11:27 Hgb 9.2 GM/dL (10.7-15.3) L 01/25/19 11:27 Hct 28.5 % (32.4-45.2) L 01/25/19 11:27 MCV 79.7 fl (80-96) L 01/25/19 11:27 MCHC 32.2 g/dl (32.0-36.0) 01/25/19 11:27 RDW 18.8 % (11.6-15.6) H 01/25/19 11:27 Plt Count 399 K/MM3 (134-434) 01/25/19 11:27 MPV 8.4 fl (7.5-11.1) 01/25/19 11:27 CMP Sodium 143 mmol/L (136-145) 01/25/19 11:27 Potassium 3.8 mmol/L (3.5-5.1) 01/25/19 11:27 Chloride 111 mmol/L (98-107) H 01/25/19 11:27 Carbon Dioxide 26 mmol/L (21-32) 01/25/19 11:27 Anion Gap 6 MMOL/L (8-16) L 01/25/19 11:27 BUN 6.5 mg/dL (7-18) L 01/25/19 11:27 Creatinine 1.1 mg/dL (0.55-1.3) 01/25/19 11:27 Random Glucose 99 mg/dL (74-106) 01/25/19 11:27 Calcium 9.2 mg/dL (8.5-10.1) 01/25/19 11:27 Total Bilirubin 0.2 mg/dL (0.2-1) 01/25/19 11:27 AST 10 U/L (15-37) L 01/25/19 11:27 ALT 13 U/L (13-61) 01/25/19 11:27 Alkaline Phosphatase 74 U/L (45-117) 01/25/19 11:27 Total Protein 7.3 g/dl (6.4-8.2) 01/25/19 11:27 Albumin 2.6 g/dl (3.4-5.0) L 01/25/19 11:27 ASSESSMENT/PLAN: 73 year old female with a past medical history of lupus (s/p lymphadenectomy, R renal stent), R BKA (s/p gangrene), PAD (b/l stents), CAD, HTN, HLD, anemia, hx of DVT who presents with a headache and chills. Patient stated that she has had a headache, photophobia, phonophobia, nausea, decreased appetite, lightheadedness, generalized weakness, neck pain since previous week. Stated that the symptoms were progressively getting worse and day before admission she developed chills and at times felt like she might have a fever. Additionally, yesterday she noted that she began to have a painful and pruritic rash on her back and underneath her breast. She took Tylenol for the pain and had limited relief. She was getting worried that her symptoms were not remitting and she was beginning to feel very weak and not able to ambulate well and came to the hospital for further evaluation. Denied chest pain, shortness of breath, abdominal pain, vomiting, numbness/tingling, confusion, trauma, loss of consciousness, cough. Denied recent sick contacts, changes in medications, recent travel. Additionally, stated she had nasal congestion for about a week or more with rhinnorhea. In the ER, found to have WBC 11.4, CRE 1.3 (baseline 1.0-1.1). CT head with no acute pathology, CXR with no acute pathology. There was a concern for meningitis and therefore lumbar puncture was performed, CSF results reviewed and demonstrated white blood cells of 8 as well as increased protein to 86, glucose of 47 (normal range). This appears to consistent with viral meningitis, Rash in her right paraspinal and right substernal region continues to reduce. Patient being given supportive management as recommended. IV hydration as needed. Reports feeling better. States she has not been having fevers or chills and states ID may be considering discharge planning for the next day or two. Monitor blood pressure, maintain normotensive range, bedrest needed, DVT ppx as patient not ambulating.
[2019-01-26] MEDS ORDERED: PT OWN MED DRAWER 7, Y5N ONE ×2 (09:56→11:04)
[2019-01-26] MEDS: LIDOCAINE 5% TOPICAL PATCH TP SCH (10:50)
[2019-01-26] MEDS: HYDROXYCHLOROQUINE SO4 200 MG TABLET (FP) PO SCH (10:51)
[2019-01-26] MEDS: CALCIUM (OYSTER SHELL) 500 MG TABLET (FP) PO SCH (10:51)
[2019-01-26] MEDS: MULTIVITAMINS (DAILY MVI) TABLET (FP) PO SCH (10:51)
[2019-01-26] MEDS: RANITIDINE HCL 150 MG TABLET (FP) PO SCH (10:51)
[2019-01-26] MEDS: CHOLECALCIFEROL (VIT D3) 1,000 UNIT (25 MCG) TABLET PO SCH (10:51)
[2019-01-26] MEDS: ASPIRIN 81 MG CHEWABLE TABLETS PO SCH (10:51)
[2019-01-26] MEDS: VITAMIN B COMP W-C 1 EA TABLET PO SCH (10:51)
[2019-01-26] MEDS: NIFEdipine E.R 60 MG TABLET (UD) PO SCH (10:51)
[2019-01-26] MEDS: ACETAMINOPHEN 325 MG TABLET (FP) PO PRN (11:18)
[2019-01-26] MEDS: ACYCLOVIR INJECTION 620 MG in DEXTROSE 5%-WATER - 100 ML IVPB SCH (11:19)
[2019-01-26 16:03] VITALS: BP 143/57; PULSE 86; TEMP 98.1
--- NOTE | 2019-01-26 17:12 | DS ---
Physical Exam: SUBJECTIVE: Patient seen and examined. feels well, in no acute distress. for discharge home today. OBJECTIVE: cleared by ID for d/c for 3 more days of acyclovir insurance did not approve vanco oral, discussed with ID, OK to substitute with flagyl tid x 10 more days Vital Signs Period Temp Pulse Resp BP Sys/[place] Pulse Ox Last 24 Hr 97.6 F-98.4 F 80-86 18-20 143-165/48-72 98-98 PHYSICAL EXAM Constitutional: Yes: Well Nourished, No Distress, Calm Eyes: Yes: Conjunctiva Clear, PERRL HENT: Yes: Atraumatic, Normocephalic Neck: Yes: Supple Cardiovascular: Yes: Regular Rate and Rhythm Respiratory: Yes: Regular, CTA Bilaterally Gastrointestinal: Yes: Normal Bowel Sounds, Soft ...Rectal Exam: Yes: Deferred Musculoskeletal: Yes: Other (Right leg prosthesis) Edema: No Peripheral Pulses WNL: Yes Peripheral Pulses: Left Radial: 2+, Right Radial: 2+ Integumentary: Yes: Other (posterior and right breast lesions mostly crusted over) ...Motor Strength: WNL Psychiatric: Yes: Alert, Oriented Labs: LABS Laboratory Results - last 24 hr 01/26/19 06:01 POC Glucometer 88 HOSPITAL COURSE: Date of Admission:01/18/19 Date of Discharge: 01/26/19 73 year old female with a past medical history of lupus (s/p lymphadenectomy, R renal stent), R BKA (s/p gangrene), PAD (b/l stents), CAD, HTN, HLD, anemia, hx of DVT who presented with a headache and chills, photophobia, phonophobia, nausea, decreased appetite, lightheadedness, generalized weakness noted to have varicella zoster (shingles) infection. (1) CAD (coronary artery disease) c/w asa Code(s): I25.10 - ATHSCL HEART DISEASE OF [place] CORONARY ARTERY W/O ANG PCTRS (2) History of DVT (deep vein thrombosis) c/w heparin SC during hospital stay. continue home medications. Code(s): Z86.718 - PERSONAL HISTORY OF OTHER VENOUS THROMBOSIS AND EMBOLISM (3) Anemia - stable CBC as outpatient for close monitoring. Code(s): D64.9 - ANEMIA, UNSPECIFIED Qualifiers: Anemia type: unspecified type Qualified Code(s): D64.9 - Anemia, unspecified (4) HTN (hypertension) c/w home medications-labetolol, procardia Code(s): I10 - ESSENTIAL (PRIMARY) HYPERTENSION Qualifiers: Hypertension type: secondary to endocrine disorders Qualified Code (s): I15.2 - Hypertension secondary to endocrine disorders (5) Hyperlipidemia c/w low fat/chol diet Code(s): E78.5 - HYPERLIPIDEMIA, UNSPECIFIED (6) Shingles c/w acyclovir-lesions starting to crust over - can switch to 3 more days of PO acyclovir per id. c/o post herpatic pain - improved. c/w with gabapentin, tylenol c/w isolation and airborne precautions serum and CSF cryptococcal antigen negative appreciate ID consultation appreciate neurology consultation-Dr Cabrera respiratory viral panel negative Code(s): B02.9 - ZOSTER WITHOUT COMPLICATIONS Qualifiers: Herpes zoster complications: unspecified herpes zoster complication Qualified Code(s): B02.8 - Zoster with other complications (7) Foot ulcer, left appreciate podiatry consultation, pt to follow up as an outpatient. grade 2-3 wound left foot dressing betadine to left foot. Code(s): L97.529 - NON-PRESSURE CHRONIC ULCER OTH PRT LEFT FOOT W UNSP SEVERITY (8) Connective tissue disease seen by rheumatology, appreciate consultation unlikely that diagnosis of SLE is accurate-- SHANKAR and anti-SSA positive with all other serology including ANCA negative and normal complement no need to treat with steroids Code(s): M35.9 - SYSTEMIC INVOLVEMENT OF CONNECTIVE TISSUE, UNSPECIFIED (9) c.diff insurance did not approve vancomycin, flagyl substituted, OK for this substitution per ID. Code(s): R19.7 - DIARRHEA, UNSPECIFIED (10) Prophylactic measure discharge planning Code(s): Z29.9 - ENCOUNTER FOR PROPHYLACTIC MEASURES, UNSPECIFIED Minutes to complete discharge: 60 Discharge Summary Problems reviewed: Yes Reason For Visit: HERPES ZOSTER, MENINGITIS Current Active Problems CAD (coronary artery disease) (Acute) Connective tissue disease (Acute) Diarrhea (Acute) Disseminated herpes zoster (Acute) Foot ulcer, left (Acute) History of DVT (deep vein thrombosis) (Acute) Meningitis (Acute) Prophylactic measure (Acute) Shingles (Acute) Condition: Stable - Instructions Diet, Activity, Other Instructions: Mrs Trent: Take Flagyl 250mg THREE TIMES per day until February 04. This will complete the 2 weeks course. Take Acyclovir 400mg THREE times per day for 3 more days. Please follow up with Dr. Cabrera on discharge. Please call me with any questions that you may have. [address] [employer] OFFICE ASSISTANT [phone] [facility] Referrals: Burak Cabrera MD [Staff Physician] - 1 Week Niki Daniels DPM [Staff Physician] - 1 Week Disposition: HOME - Home Medications Comprehensive Discharge Medication List: Ambulatory Orders Hydroxychloroquine Sulfate [Plaquenil] 200 mg PO DAILY 10/20/15 Nifedipine [Procardia Xl] 60 mg PO BID 10/20/15 predniSONE [Deltasone -] 7 mg PO DAILY 10/20/15 Iron,Carbonyl [Feosol] 65 mg PO DAILY 11/20/15 Vitamin B Complex [B Complex # 1] 1 each PO DAILY 11/20/15 Labetalol HCl 200 mg PO TID 07/22/17 Calcium Carbonate [Calcium] 1,000 mg PO DAILY 05/17/18 Famotidine [Pepcid] 20 mg PO DAILY 05/17/18 Gabapentin [Neurontin -] 600 mg PO TID 05/17/18 Multivit-Min36/Iron/Folic Acid [Geritol Complete Tablet] 1 each PO DAILY Aspirin [ASA -] 81 mg PO DAILY tab.chew 06/01/18 Cholecalciferol (Vitamin D3) [Vitamin D3 -] 1,000 units PO DAILY 09/17/18 Acetaminophen [Tylenol .Extra-Strength -] 1,000 mg PO Q6H PRN tablet 01/07/19 Collagenase Clostridium Hist. [Santyl -] 1 applic TP DAILY tube 01/07/19 Multivitamins [Multivit ([facility] Formulary)] 1 tab PO DAILY tab 01/07/19 Polyethylene Glycol 3350 [Miralax 119 gm Btl -] 17 gm PO DAILY bottle 01/07/19 Acyclovir [Zovirax -] 400 mg PO TID #10 tablet 01/26/19 metroNIDAZOLE [Flagyl -] 250 mg PO TID #30 tablet 01/26/19 Prescription Drug Monitoring Program (I-STOP) results: I-STOP not reviewed This patient is new to me today: No Emergency Visit: Yes ED Registration Date: 01/18/19 Care time: The patient presented to the Emergency Department on the above date and was hospitalized for further evaluation of their emergent condition. Critical Care patient: No - Discharge Referral Referred to [facility] No
== END 2019-01-26 17:32 | disposition home or self-care (01) | DRG 75 ==
LOC: JER 19:28 → JERBED 01-18 01:47 → J8W 01-18 21:16
PROVIDERS: ADMIT Internal Medicine; ATTEND Nurse Practitioner Family
PROC: 009U3ZX Drainage of Spinal Canal, Percutaneous Approach, Diagnostic (ICD-10-PCS; principal; 2019-01-17)
DX: A87.9 Viral meningitis, unspecified (principal); B02.7 Disseminated zoster; A04.72 Enterocolitis due to Clostridium difficile, not specified as recurrent; I25.10 Atherosclerotic heart disease of native coronary artery without angina pectoris; I10 Essential (primary) hypertension; E78.5 Hyperlipidemia, unspecified; D64.9 Anemia, unspecified; Z89.511 Acquired absence of right leg below knee; Z86.718 Personal history of other venous thrombosis and embolism; Z88.0 Allergy status to penicillin; G62.9 Polyneuropathy, unspecified; L97.529 Non-pressure chronic ulcer of other part of left foot with unspecified severity
CPT/HCPCS: 36415; 70450-TC; 71045-TC-FY; 73630-TC-LT; 80053; 81003; 82945; 82962; 83605; 83735; 84100; 84157; 84443; 85025; 85027; 85610; 85651; 85730; 86038; 86140; 86162; 86225; 87040; 87045; 87046; 87070; 87077; 87086; 87205; 87324; 87449; 87529; 87798; 87899; 93005; 93010; 97116-GP; 97162-GP; 99284-25; J0131; J1644; J7030

== ENCOUNTER 2019-03-15 11:54 | Day surgery (SDC) | payer BC, OTHER ==
[2019-03-12 13:10] VITALS: BMI 27.2
[2019-03-15] MEDS ORDERED: ACETAMINOPHEN 1000 MG/100 ML VIAL (NON FORMULARY) IVPB ONE ×2 (14:11→15:29)
[2019-03-15] MEDS ORDERED: DEXTROSE 5%-0.45% SALINE 1,000 ML IV SCH (14:15)
[2019-03-15] MEDS ORDERED: MIDAZOLAM HCL 2 MG/2 ML SINGLE DOSE VIAL ONE (14:18)
[2019-03-15] MEDS ORDERED: PROPOFOL 20 ML ONE (14:18)
[2019-03-15] MEDS ORDERED: ceFAZolin SODIUM 1 GM VIAL ONE (14:41)
[2019-03-15] MEDS ORDERED: ceFAZolin SODIUM 1 GM VIAL IVPB ONE (14:42)
[2019-03-15] MEDS ORDERED: ACETAMINOPHEN INJECTION 100 ML IVPB ONE (15:25)
[2019-03-15 16:13] VITALS: TEMP 97.9
[2019-03-15 17:03] VITALS: BP 140/60; PULSE 80
[2019-03-15] MEDS ORDERED: IBUPROFEN 800 MG/8 ML IJ IVPB SCH (18:00)
--- NOTE | 2019-03-18 11:38 | PATH ---
Surgical Pathology Report Patient Name: OLEG PERERA [facility]. Rec. #: [id number] /Age/Gender: 1945 (Age: 73) / F Account: [id number] Location: U SURGICAL Taken: 03/15/2019 Received: 03/16/2019 Reported: 03/18/2019 Physicians: Isaak Mead M.D. Specimen(s) Received URETERAL STENT Clinical History Right hydronephrosis Final Diagnosis URETERAL STENT, REMOVAL: STENT, DESCRIBED (GROSS EXAMINATION ONLY). Electronically Signed Nilam Bolaños M.D. Gross Description Received fresh labeled "ureteral stent," is a 35 cm in length blue-green, coiled portion of tubing, consistent with a ureteral stent. No soft tissue is present. No sections are submitted, gross only. 03/16/2019 saudi03/16/2019
--- NOTE | 2019-04-05 15:10 | OP ---
DATE OF OPERATION: 03/15/2019 PREOPERATIVE DIAGNOSIS: Right hydronephrosis. POSTOPERATIVE DIAGNOSIS: Right hydronephrosis. PROCEDURE: Cystoscopy, right ureteral stent exchange. ANESTHESIA: General. PREOPERATIVE INDICATIONS: Patient has a chronically obstructed kidney on the right. She has an indwelling stent. She comes for a change. DESCRIPTION OF PROCEDURE: The patient was brought to the OR. Placed on the table in supine position. Given general anesthesia and IV antibiotics. Placed in a modified lithotomy position. The groin was prepped and draped sterilely. Cystoscopy was performed. The bladder itself was unremarkable except for the stent emerging from the right UO. No tumors or stones were seen. The stent was removed, and over a wire, a new stent was placed after which pyelogram was done to show the shape of the kidney. Stent was left in place. Bladder was emptied. The patient was woken up. Dhiraj [id number]
== END 2019-03-15 16:55 | disposition home or self-care (01) ==
LOC: JASU-SURG 11:54
PROVIDERS: ATTEND Urology
PROC: 0T768DZ Dilation of Right Ureter with Intraluminal Device, Via Natural or Artificial Opening Endoscopic (ICD-10-PCS; principal; 2019-03-15 14:00)
PROC: 0TP98DZ Removal of Intraluminal Device from Ureter, Via Natural or Artificial Opening Endoscopic (ICD-10-PCS; 2019-03-15 14:00)
DX: N13.30 Unspecified hydronephrosis (principal)
CPT/HCPCS: 76000-TC-FY; 94760; J0131

== ENCOUNTER 2019-05-05 14:26 | Inpatient (IN) | payer BC, OTHER ==
--- NOTE | 2019-05-05 15:07 | PDOC ---
Rapid Medical Evaluation Time Seen by Provider: 05/05/19 15:04 Medical Evaluation: Allergies Allergy/AdvReac Type Severity Reaction Status Date / Time Sulfa (Sulfonamide Allergy Severe RASH,VOMITI Verified 03/12/19 13:10 Antibiotics) NG,DIZZINES S codeine [Codeine] Allergy Hives Verified 03/12/19 13:10 Penicillins Allergy Hives Verified 03/12/19 13:10 lactose AdvReac Verified 03/12/19 13:10 ranitidine [From Zantac] AdvReac headache Verified 03/12/19 13:10 05/05/19 15:05 I have performed a brief in-person evaluation of this patient. The patient presents with a chief complaint of:Sent in by Dr Daniels of podiatry for admission for L foot infection. Pt w/ lupus on steroids w/ chronic ulcer to LLE that opened up recently. No f/c. Not currently on abx Pertinent physical exam findings:stable, NAD, defer to ED provider I have ordered the following:Labs The patient will proceed to the ED for further evaluation. Of note, has rx from Dr Daniels who wants pt admitted to [facility] w/ Dr Cervantes of ID and Dr Gomez of [facility] to be consulted Discharge Disposition - Diagnosis Cellulitis of foot - Referrals - Patient Instructions - Post Discharge Activity
--- NOTE | 2019-05-05 15:37 | PDOC ---
History of Present Illness - General Chief Complaint: Wound Stated Complaint: EVALUATION Time Seen by Provider: 05/05/19 15:04 History Source: Patient, Old Records Exam Limitations: No Limitations - History of Present Illness Initial Comments: 05/05/19 15:37 73y F with PMH of lupus (s/p lymphadenectomy, R renal stent), R BKA (s/p gangrene), PAD (b/l stents), CAD, HTN, HLD, anemia presenting to ED for L foot wound. She has had pain in the L foot for about 1 year, with recurrence of the pain in the past 2 weeks. She saw her sample puller today who sent her to the ED for admission. Patient endorses pain in the L foot with erythema. Denies fever, chills, back pain, headache, n/v/d, sob, cough, congestion. PMD: PMH: see hpi PSH: see hpi Meds: see med rec Allergies: PCN (hives), Sulfa (hives), codeine Past History - Past Medical History Allergies/Adverse Reactions: Allergies Allergy/AdvReac Type Severity Reaction Status Date / Time Sulfa (Sulfonamide Allergy Severe RASH,VOMITI Verified 05/05/19 15:07 Antibiotics) NG,DIZZINES S codeine [Codeine] Allergy Hives Verified 05/05/19 15:07 Penicillins Allergy Hives Verified 05/05/19 15:07 lactose AdvReac Verified 05/05/19 15:07 ranitidine [From Zantac] AdvReac headache Verified 05/05/19 15:07 Home Medications: Ambulatory Orders Hydroxychloroquine Sulfate [Plaquenil] 200 mg PO DAILY 10/20/15 Nifedipine [Procardia Xl] 60 mg PO BID 10/20/15 predniSONE [Deltasone -] 5 mg PO DAILY 10/20/15 Iron,Carbonyl [Feosol] 65 mg PO DAILY 11/20/15 Vitamin B Complex/Folic Acid [B Complex Formula #1 Tablet] 1 each PO DAILY 11/19 Labetalol HCl 200 mg PO TID 07/22/17 Calcium Carbonate [Calcium] 1,000 mg PO DAILY 05/17/18 Famotidine [Pepcid] 20 mg PO DAILY 05/17/18 Gabapentin [Neurontin -] 600 mg PO TID 05/17/18 Multivit-Min36/Iron/Folic Acid [Geritol Complete Tablet] 1 each PO DAILY Aspirin [ASA -] 81 mg PO DAILY tab.chew 06/01/18 Cholecalciferol (Vitamin D3) [Vitamin D3 -] 1,000 units PO DAILY 09/17/18 Acetaminophen [Tylenol .Extra-Strength -] 1,000 mg PO Q6H PRN tablet 01/07/19 Anemia: Yes (chronic) Asthma: No Cancer: No (lupus) Cardiac Disorders: Yes (Leg stents, CAD, PVD, vasculitis) CVA: No COPD: No CHF: No DVT: Yes (by history) Dementia: No Diabetes: No Dialysis: No GI Disorders: Yes (GERD) Disorders: Yes (HAS URETERAL STENT) HTN: Yes Hypercholesterolemia: Yes Kidney Stones: Yes Liver Disease: No Psychiatric Problems: No Seizures: No Thyroid Disease: No - Surgical History Abdominal Surgery: Yes (10/2015 mass removed-negative) Appendectomy: No Cardiac Surgery: Yes (STENTS OCTOBER 2010 IN LEFT LEG) Cholecystectomy: No Lung Surgery: No Neurologic Surgery: No Orthopedic Surgery: Yes ([place] BUENROSTRO (1996)) - Immunization History Immunization Up to Date: Yes - Psycho Social/Smoking Cessation Hx Smoking Status: No Smoking History: Never smoked Have you smoked in the past 12 months: No Number of Cigarettes Smoked Daily: 0 If you are a former smoker, when did you quit?: 1979 Hx Alcohol Use: No Drug/Substance Use Hx: No Substance Use Type: None Hx Substance Use Treatment: No Review of Systems - Review of Systems Constitutional: No: Chills, Fever HEENTM: No: Symptoms Reported Respiratory: No: Symptoms reported Cardiac (ROS): No: Symptoms Reported ABD/GI: No: Symptoms Reported : No: Symptoms Reported Musculoskeletal: Yes: Other (foot pain) Integumentary: Yes: Erythema Neurological: No: Symptoms reported *Physical Exam - Vital Signs Last Vital Signs Temp Pulse Resp BP Pulse Ox 98.1 F 77 18 190/68 H 98 05/05/19 15:03 05/05/19 15:03 05/05/19 15:03 05/05/19 15:03 05/05/19 15:03 - Physical Exam General Appearance: Yes: Appropriately Dressed, Thin. No: Apparent Distress HEENT: positive: EOMI, WESLEY, Normal ENT Inspection Neck: positive: Trachea midline, Supple Respiratory/Chest: positive: Lungs Clear, Normal Breath Sounds. negative: Crackles, Rales, Rhonchi, Stridor Cardiovascular: positive: Regular Rhythm, Regular Rate, S1, S2. negative: Edema , JVD, Murmur Gastrointestinal/Abdominal: positive: Normal Bowel Sounds, Soft. negative: Tender Musculoskeletal: negative: CVA Tenderness Extremity: positive: Normal Capillary Refill, Other (R BKA. L plantar surface tender with erythema and superficial ulceration medially. no drainage. no fluctuance. induration noted. 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 vitals: hypertensive. afebrile, normocardic. cellulitis v. osteo low suspicion for nec fac. will draw labs, crp, esr, consult for ID and vascular placed as per request. started on vanc and aztreonam per request of ID. IV tylenol for pain. Pt due for labetalol dose. labs hemolyzed, new labs drawn. pain not cntrolled, given percocet. placed order for evening meds. Admitted to Dr. Diaz elevated WBC. elevated ESR and CRP (pt also has Lupus which could affect these results). XRAY does not show signs of osteo. Discharge - Discharge Information Problems reviewed: Yes Clinical Impression/Diagnosis: Cellulitis of foot Condition: Stable - Admission Yes - Follow up/Referral - Patient Discharge Instructions - Post Discharge Activity
--- NOTE | 2019-05-05 15:58 | EKG ---
Test Reason : Blood Pressure : / mmHG Vent. Rate : 072 BPM Atrial Rate : 072 BPM P-R Int : 146 ms QRS Dur : 072 ms QT Int : 400 ms P-R-T Axes : 046 033 042 degrees QTc Int : 438 ms NORMAL SINUS RHYTHM NORMAL ECG WHEN COMPARED WITH ECG OF 18-JAN-2019 04:39, NO SIGNIFICANT CHANGE WAS FOUND Confirmed by KEVIN BLACK MD ([id number]) on 05/05/2019 3:57:52 PM Referred By: Confirmed By:KEVIN BLACK MD
[2019-05-05] MEDS ORDERED: ACETAMINOPHEN 500 MG TABLET (FP) PO ONE (15:59)
[2019-05-05] MEDS ORDERED: ACETAMINOPHEN 1000 MG/100 ML VIAL (NON FORMULARY) IVPB ONE (16:00)
[2019-05-05] MEDS ORDERED: LABETALOL HCL 200 MG TABLET (FP) PO ONE (16:03)
[2019-05-05] MEDS ORDERED: LABETALOL HCL 100 MG TABLET (FP) ONE ×2 (16:20→22:13)
[2019-05-05] MEDS ORDERED: ACETAMINOPHEN INJECTION 100 ML IVPB ONE (16:21)
[2019-05-05 17:36] LABS: RBC 4.04 M/mm3 (3.60-5.2); WHITE BLOOD COUNT 11.2 K/mm3 (4.0-10.0)
[2019-05-05 17:37] LABS: BASO % 0.5 % (0-2.0); EOS % 1.1 % (0-4.5); HEMATOCRIT 32.7 % (32.4-45.2); HEMOGLOBIN 10.4 GM/dL (10.7-15.3); LYMPH % 19.1 % (8-40); MCH 25.7 pg (25.7-33.7); MCHC 31.7 g/dl (32.0-36.0); MEAN CELL VOLUME 80.9 fl (80-96); MEAN PLT VOLUME 8.8 fl (7.5-11.1); MONO % 4.8 % (3.8-10.2); NEUT % 74.5 % (42.8-82.8); PLATELET COUNT 486 K/MM3 (134-434); RDW 16.6 % (11.6-15.6)
--- NOTE | 2019-05-05 18:05 | PDOC ---
Documentation entered by Lul Rosa SCRIBE, acting as scribe for Zeynep Saleh MD. Zeynep Saleh MD: This documentation has been prepared by the lilian, Lul Rosa SCRIBE, under my direction and personally reviewed by me in its entirety. I confirm that the documentation accurately reflects all work, treatment, procedures, and medical decision making performed by me. Attending Attestation - Resident Resident Name: Magda Avalos - ED Attending Attestation I have performed the following: I have examined & evaluated the patient, The case was reviewed & discussed with the resident, I agree w/resident's findings & plan, Exceptions are as noted - HPI HPI: 05/05/19 16:04 The patient is a 73 year old female, with a significant PMH of Lupus (s/p lymphadenectomy and R renal stent), R BKA (s/p gangrene), PAD (b/l stents), CAD , HTN, HLD, and anemia who presents to the emergency department sent in by by Dr. Daniels of podiatry for admission for L foot infection and pain. Pt reports chronic ulcer to E for the past year, worsening the past week. Pt states the past week she has been walking more than usual, aggravating her L foot pain. The patient denies chest pain, shortness of breath, headache and dizziness. Denies fever, chills, cough, nausea, vomiting, diarrhea and constipation. Denies dysuria, frequency, urgency and hematuria. Allergies: NKDA Past surgical history: R BKA (1996), PCP: Dr. Daniels - Physicial Exam PE: 05/05/19 18:02 GENERAL: The patient is in no acute distress. ENT: Ears normal, nares patent, oropharynx clear without exudates. Moist mucous membranes. NECK: Normal range of motion, supple LUNGS: Breath sounds equal, clear to auscultation bilaterally. No wheezes, and no crackles. HEART:Regular rate and rhythm, normal S1 and S2 without murmur, rub or gallop. ABDOMEN: Soft, nontender, normoactive bowel sounds. EXTREMITIES: Normal range of motion, no edema. NEUROLOGICAL: Cranial nerves II through XII grossly intact. Normal speech. No focal neurological deficits. SKIN: Warm, Dry, normal turgor, no rashes or lesions noted. - Medical Decision Making 05/05/19 18:03 Laboratory Tests 05/05/19 17:20 WBC 11.2 H Hgb 10.4 L Hct 32.7 Plt Count 486 H D Neutrophils % 74.5 D Lymphocytes % 19.1 D 05/05/19 18:[address] Cervantes Recommends vancomycin and meropenem Will admit to hospitalist service
[2019-05-05] MEDS ORDERED: VANCOMYCIN 1 GM in D5W (PRE-DOCKED) 1,000 MG/250 ML IVPB ONE (18:06)
[2019-05-05] MEDS ORDERED: AZTREONAM 2 GM in DEXTROSE 5%-WATER 100 ML IVPB ONE (18:06)
[2019-05-05] MEDS ORDERED: VANCOMYCIN 1 GRAM (PRE-DOCKED) 1,000 MG/250 ML BAG IVPB ONE (18:45)
[2019-05-05] MEDS ORDERED: AZTREONAM 1 GM VIAL (RESTRICTED TO ID) ONE (18:45)
[2019-05-05 18:50] LABS: ERYTHROCYTE SEDIMENTATION RATE 92 mm/hr (0-30)
[2019-05-05] MEDS ORDERED: GABAPENTIN 300 MG CAPSULE PO ONE (18:50)
[2019-05-05 19:10] LABS: BILIRUBIN,TOTAL 0.2 mg/dL (0.2-1); BLOOD UREA NITROGEN 15.3 mg/dL (7-18); CALCIUM 9.8 mg/dL (8.5-10.1); CREATININE 1.1 mg/dL (0.55-1.3); POTASSIUM 4.3 mmol/L (3.5-5.1); TOT PROT 7.8 g/dl (6.4-8.2)
[2019-05-05] MEDS ORDERED: GABAPENTIN 100 MG CAPSULE ONE (19:40)
[2019-05-05] MEDS: HYDROXYCHLOROQUINE SO4 200 MG TABLET (FP) PO SCH (20:23)
[2019-05-05] MEDS ORDERED: NIFEdipine E.R. 30 MG TABLET ONE (22:13)
[2019-05-05] MEDS: NIFEdipine E.R 60 MG TABLET PO SCH (22:21)
[2019-05-05] MEDS: LABETALOL HCL 200 MG TABLET (FP) PO SCH (22:21)
--- NOTE | 2019-05-05 22:46 | HP ---
Admitting History and Physical - Past Medical History Cardiovascular: Yes: CAD Gastrointestinal: Yes: GERD Renal/: Yes: Renal Failure, Other (renal obstruction s/p stents) ...LMP: 12/31/18 Endocrine: Yes: Diabetes Mellitus - Past Surgical History Past Surgical History: Yes: Amputation (R AKA) - Smoking History Smoking history: Never smoked Have you smoked in the past 12 months: No Aproximately how many cigarettes per day: 0 If you are a former smoker, when did you quit?: 1979 - Alcohol/Substance Use Hx Alcohol Use: No - Social History ADL: Independent History of Recent Travel: No Home Medications - Allergies Allergies/Adverse Reactions: Allergies Allergy/AdvReac Type Severity Reaction Status Date / Time Sulfa (Sulfonamide Allergy Severe RASH,VOMITI Verified 05/05/19 15:07 Antibiotics) NG,DIZZINES S codeine [Codeine] Allergy Hives Verified 05/05/19 15:07 Penicillins Allergy Hives Verified 05/05/19 15:07 lactose AdvReac Verified 05/05/19 15:07 ranitidine [From Zantac] AdvReac headache Verified 05/05/19 15:07 - Home Medications Home Medications: Ambulatory Orders Hydroxychloroquine Sulfate [Plaquenil] 200 mg PO DAILY 10/20/15 Nifedipine [Procardia Xl] 60 mg PO BID 10/20/15 predniSONE [Deltasone -] 5 mg PO DAILY 10/20/15 Iron,Carbonyl [Feosol] 65 mg PO DAILY 11/20/15 Vitamin B Complex/Folic Acid [B Complex Formula #1 Tablet] 1 each PO DAILY 11/19 Labetalol HCl 200 mg PO TID 07/22/17 Calcium Carbonate [Calcium] 1,000 mg PO DAILY 05/17/18 Famotidine [Pepcid] 20 mg PO DAILY 05/17/18 Gabapentin [Neurontin -] 600 mg PO TID 05/17/18 Multivit-Min36/Iron/Folic Acid [Geritol Complete Tablet] 1 each PO DAILY Aspirin [ASA -] 81 mg PO DAILY tab.chew 06/01/18 Cholecalciferol (Vitamin D3) [Vitamin D3 -] 1,000 units PO DAILY 09/17/18 Acetaminophen [Tylenol .Extra-Strength -] 1,000 mg PO Q6H PRN tablet 01/07/19 Physical Examination Vital Signs: Vital Signs Temperature 97.7 F 05/05/19 19:20 Pulse Rate 72 05/05/19 19:20 Respiratory Rate 17 05/05/19 19:20 Blood Pressure 165/63 05/05/19 19:20 O2 Sat by Pulse Oximetry (%) 100 05/05/19 19:20 Labs: CBC, BMP 05/05/19 17:20 05/05/19 18:27
[2019-05-06] MEDS ORDERED: AZTREONAM 1 GM VIAL (RESTRICTED TO ID) ONE ×3 (01:36→18:51)
[2019-05-06] MEDS ORDERED: DEXTROSE 5%-WATER - 50 ML IVPB ONE ×3 (01:36→18:51)
[2019-05-06] MEDS: AZTREONAM 1 GM in DEXTROSE 5%-WATER - 50 ML IVPB SCH ×3 (02:52→18:53)
[2019-05-06 04:06] LABS: EPI CELLS 0.9 /HPF (0-5/HPF); HYALINE CASTS 0 /lpf (0-8); URINE APPEARANCE CLEAR; URINE BILIRUBIN NEGATIVE (NEGATIVE); URINE COLOR YELLOW; URINE GLUCOSE (UA) NEGATIVE (NEGATIVE); URINE KETONE NEGATIVE (NEGATIVE); URINE LEUK ESTERASE TRACE (NEGATIVE); URINE NITRITE NEGATIVE (NEGATIVE); URINE PROTEIN NEGATIVE (NEGATIVE); URINE RBC 33 /hpf (0-4); URINE UROBILINOGEN 0.2 mg/dL (0.2-1.0); URINE WBC 5 /hpf (0-5)
[2019-05-06] MEDS: LABETALOL HCL 200 MG TABLET (FP) PO SCH ×3 (06:32→22:32)
[2019-05-06] MEDS ORDERED: VANCOMYCIN 1 GRAM (PRE-DOCKED) 1,000 MG/250 ML BAG IVPB SCH ×2 (07:00→19:00)
[2019-05-06 08:52] LABS: BASO % 1.3 % (0-2.0); EOS % 4.4 % (0-4.5); HEMATOCRIT 31.4 % (32.4-45.2); HEMOGLOBIN 10.1 GM/dL (10.7-15.3); LYMPH % 18.2 % (8-40); MCH 25.7 pg (25.7-33.7); MEAN CELL VOLUME 80.2 fl (80-96); MEAN PLT VOLUME 8.2 fl (7.5-11.1); MONO % 12.3 % (3.8-10.2); NEUT % 63.8 % (42.8-82.8); PLATELET COUNT 427 K/MM3 (134-434); RBC 3.92 M/mm3 (3.60-5.2); RDW 16.9 % (11.6-15.6); WHITE BLOOD COUNT 7.8 K/mm3 (4.0-10.0)
[2019-05-06 09:23] LABS: ALBUMIN 2.7 g/dl (3.4-5.0); BILIRUBIN,TOTAL 0.3 mg/dL (0.2-1); BLOOD UREA NITROGEN 13.2 mg/dL (7-18); CALCIUM 9.1 mg/dL (8.5-10.1); POTASSIUM 3.9 mmol/L (3.5-5.1); TOT PROT 7.2 g/dl (6.4-8.2)
[2019-05-06] MEDS ORDERED: FLU VACCINE QUAD 60 MCG/0.5 ML (MDV 19-20) IM ONE (10:00)
[2019-05-06] MEDS: predniSONE 5 MG TABLET (UD) PO SCH (10:12)
[2019-05-06] MEDS: ASPIRIN 81 MG CHEWABLE TABLETS PO SCH (10:12)
[2019-05-06] MEDS: HYDROXYCHLOROQUINE SO4 200 MG TABLET (FP) PO SCH (10:12)
[2019-05-06] MEDS: NIFEdipine E.R 60 MG TABLET PO SCH ×2 (10:12→22:33)
[2019-05-06] MEDS: HEPARIN NA (PORCINE) 5,000 UNITS/ML 1ML VIAL SQ SCH ×2 (10:13→22:33)
[2019-05-06] MEDS: CALCIUM (OYSTER SHELL) 500 MG TABLET (FP) PO SCH (10:13)
[2019-05-06] MEDS: PANTOPRAZOLE 40 MG TABLET PO SCH (10:13)
--- NOTE | 2019-05-06 11:52 | CON.ID ---
Consult Consult Specialty:: infectious diseases Referred by:: dr bello Reason for Consultation:: celluilitis of leg - History of Present Illness Chief Complaint: pain and swelling of the leg History of Present Illness: 73y F with PMH of lupus (s/p lymphadenectomy, R renal stent), R BKA (s/p gangrene), PAD (b/l stents), CAD, HTN, HLD, anemia presenting to ED for L foot wound. She has had pain in the L foot for about 1 year, with recurrence of the pain in the past 2 weeks. She saw her motorcycle police officer today who sent her to the ED for admission. Patient endorses pain in the L foot with erythema. Denies fever, chills, back pain, headache, n/v/d, sob, cough, congestion. - History Source History Provided By: Patient Limitations to Obtaining History: No Limitations - Past Medical History Cardio/Vascular: Yes: CAD Gastrointestinal: Yes: GERD Renal/: Yes: Renal Failure, Other (renal obstruction s/p stents) ...LMP: 12/31/18 ...: No Endocrine: Yes: Diabetes Mellitus - Past Surgical History Past Surgical History: Yes: Amputation (R AKA) - Alcohol/Substance Use Hx Alcohol Use: No - Smoking History Smoking history: Never smoked Have you smoked in the past 12 months: No Aproximately how many cigarettes per day: 0 If you are a former smoker, when did you quit?: 1979 - Social History Usual Living Arrangement: Other (her son and her grown grandson live with her) ADL: Independent History of Recent Travel: No Home Medications - Allergies Allergies/Adverse Reactions: Allergies Allergy/AdvReac Type Severity Reaction Status Date / Time Sulfa (Sulfonamide Allergy Severe RASH,VOMITI Verified 05/05/19 15:07 Antibiotics) NG,DIZZINES S codeine [Codeine] Allergy Hives Verified 05/05/19 15:07 Penicillins Allergy Hives Verified 05/05/19 15:07 lactose AdvReac Verified 05/05/19 15:07 ranitidine [From Zantac] AdvReac headache Verified 05/05/19 15:07 - Home Medications Home Medications: Ambulatory Orders Hydroxychloroquine Sulfate [Plaquenil] 200 mg PO DAILY 10/20/15 Nifedipine [Procardia Xl] 60 mg PO BID 10/20/15 predniSONE [Deltasone -] 5 mg PO DAILY 10/20/15 Iron,Carbonyl [Feosol] 65 mg PO DAILY 11/20/15 Vitamin B Complex/Folic Acid [B Complex Formula #1 Tablet] 1 each PO DAILY 11/19 Labetalol HCl 200 mg PO TID 07/22/17 Calcium Carbonate [Calcium] 1,000 mg PO DAILY 05/17/18 Famotidine [Pepcid] 20 mg PO DAILY 05/17/18 Gabapentin [Neurontin -] 600 mg PO TID 05/17/18 Multivit-Min36/Iron/Folic Acid [Geritol Complete Tablet] 1 each PO DAILY Aspirin [ASA -] 81 mg PO DAILY tab.chew 06/01/18 Cholecalciferol (Vitamin D3) [Vitamin D3 -] 1,000 units PO DAILY 09/17/18 Acetaminophen [Tylenol .Extra-Strength -] 1,000 mg PO Q6H PRN tablet 01/07/19 Review of Systems - Review of Systems Constitutional: reports: Other Eyes: reports: No Symptoms HENT: reports: No Symptoms Neck: reports: No Symptoms Cardiovascular: reports: No Symptoms Respiratory: reports: No Symptoms Gastrointestinal: reports: No Symptoms Genitourinary: reports: No Symptoms Musculoskeletal: reports: Other Integumentary: reports: Erythema, Wound Neurological: reports: No Symptoms Endocrine: reports: No Symptoms Hematology/Lymphatic: reports: No Symptoms Psychiatric: reports: No Symptoms Physical Exam Vital Signs: Vital Signs Temperature 98.2 F 05/06/19 10:00 Pulse Rate 72 05/06/19 10:00 Respiratory Rate 20 05/06/19 10:00 Blood Pressure 135/59 L 05/06/19 10:00 O2 Sat by Pulse Oximetry (%) 100 05/05/19 23:09 Constitutional: Yes: Calm, Mild Distress Eyes: Yes: Conjunctiva Clear HENT: Yes: Atraumatic, Normocephalic Neck: Yes: Supple, Trachea Midline Cardiovascular: Yes: Regular Rate and Rhythm Respiratory: Yes: Regular, CTA Bilaterally Gastrointestinal: Yes: Normal Bowel Sounds, Soft Musculoskeletal: Yes: Other Extremities: Yes: Other Wound/Incision: Yes: Open to air, Reddened, Other Neurological: Yes: Alert, Oriented Psychiatric: Yes: Alert, Oriented Labs: CBC, BMP 05/06/19 07:30 05/06/19 07:30 Imaging - Results Chest X-ray: Report Reviewed, Image Reviewed X-ray: Report Reviewed, Image Reviewed Assessment/Plan Assessment/Plan Problem List - Problems (1) CAD (coronary artery disease) Code(s): I25.10 - ATHSCL HEART DISEASE OF [place] CORONARY ARTERY W/O ANG PCTRS (2) Connective tissue disease Code(s): M35.9 - SYSTEMIC INVOLVEMENT OF CONNECTIVE TISSUE, UNSPECIFIED (3) Diarrhea Code(s): R19.7 - DIARRHEA, UNSPECIFIED (4) Shingles Code(s): B02.9 - ZOSTER WITHOUT COMPLICATIONS Qualifiers: Herpes zoster complications: unspecified herpes zoster complication Qualified Code(s): B02.8 - Zoster with other complications (5) Fever Code(s): R50.9 - FEVER, UNSPECIFIED Qualifiers: Fever type: unspecified Qualified Code(s): R50.9 - Fever, unspecified (6) PVD (peripheral vascular disease) Code(s): I73.9 - PERIPHERAL VASCULAR DISEASE, UNSPECIFIED (7) Amputated right leg Code(s): Z89.611 - ACQUIRED ABSENCE OF RIGHT LEG ABOVE KNEE (8) HTN (hypertension) Code(s): I10 - ESSENTIAL (PRIMARY) HYPERTENSION Qualifiers: Hypertension type: secondary to endocrine disorders Qualified Code(s): I15.2 - Hypertension secondary to endocrine disorders (9) Lupus (systemic lupus erythematosus) Code(s): M32.9 - SYSTEMIC LUPUS ERYTHEMATOSUS, UNSPECIFIED 10 cellulitis of the leg plan patient coming with pain swelling and cellulitis of the leg will start patient on abx podiatry to see the patient workup needed rest as per the team
--- NOTE | 2019-05-06 16:37 | CONSULT ---
Consult Consult Specialty:: Podiatry Reason for Consultation:: Chronic wound, infected left foot. - History of Present Illness Chief Complaint: Pain and infection History of Present Illness: Chronic wound left arch. - History Source History Provided By: Patient, Medical Record - Past Medical History Cardio/Vascular: Yes: CAD Gastrointestinal: Yes: GERD Renal/: Yes: Renal Failure, Other (renal obstruction s/p stents) ...LMP: 12/31/18 ...: No Endocrine: Yes: Diabetes Mellitus - Past Surgical History Past Surgical History: Yes: Amputation (R AKA) - Alcohol/Substance Use Hx Alcohol Use: No - Smoking History Smoking history: Never smoked Have you smoked in the past 12 months: No Aproximately how many cigarettes per day: 0 If you are a former smoker, when did you quit?: 1979 - Social History Usual Living Arrangement: Other (her son and her grown grandson live with her) ADL: Independent History of Recent Travel: No Home Medications - Allergies Allergies/Adverse Reactions: Allergies Allergy/AdvReac Type Severity Reaction Status Date / Time Sulfa (Sulfonamide Allergy Severe RASH,VOMITI Verified 05/05/19 15:07 Antibiotics) NG,DIZZINES S codeine [Codeine] Allergy Hives Verified 05/05/19 15:07 Penicillins Allergy Hives Verified 05/05/19 15:07 lactose AdvReac Verified 05/05/19 15:07 ranitidine [From Zantac] AdvReac headache Verified 05/05/19 15:07 - Home Medications Home Medications: Ambulatory Orders Hydroxychloroquine Sulfate [Plaquenil] 200 mg PO DAILY 10/20/15 Nifedipine [Procardia Xl] 60 mg PO BID 10/20/15 predniSONE [Deltasone -] 5 mg PO DAILY 10/20/15 Iron,Carbonyl [Feosol] 65 mg PO DAILY 11/20/15 Vitamin B Complex/Folic Acid [B Complex Formula #1 Tablet] 1 each PO DAILY 11/19 Labetalol HCl 200 mg PO TID 07/22/17 Calcium Carbonate [Calcium] 1,000 mg PO DAILY 05/17/18 Famotidine [Pepcid] 20 mg PO DAILY 05/17/18 Gabapentin [Neurontin -] 600 mg PO TID 05/17/18 Multivit-Min36/Iron/Folic Acid [Geritol Complete Tablet] 1 each PO DAILY Aspirin [ASA -] 81 mg PO DAILY tab.chew 06/01/18 Cholecalciferol (Vitamin D3) [Vitamin D3 -] 1,000 units PO DAILY 09/17/18 Acetaminophen [Tylenol .Extra-Strength -] 1,000 mg PO Q6H PRN tablet 01/07/19 Physical Exam Vital Signs: Vital Signs Temperature 98 F 05/06/19 16:06 Pulse Rate 75 05/06/19 16:06 Respiratory Rate 18 05/06/19 16:06 Blood Pressure 134/61 05/06/19 16:06 O2 Sat by Pulse Oximetry (%) 100 05/05/19 23:09 Extremities: Yes: Other (nvs decreased, +grade 2 wound left arch, -drainage today, +improved cellulitis since admission) Labs: CBC, BMP 05/06/19 07:30 05/06/19 07:30 Assessment/Plan Improving cellulitis PVD Neuralgia Vascular consult DR. Gomez. IVABX as per ID. Santyl dressing to left foot. Consult neurology to manage pain. Currently on Neurontin. Will follow.
--- NOTE | 2019-05-06 17:03 | CONSULT ---
Consult - History of Present Illness History of Present Illness: 73 year old woman with history of severe PAD, s/p right leg amputation and iliac stents, left leg angioplasty 1 year ago. SHe has had chronic infection of left foot for 1 year which has recurred several times despite IV antibiotics and podiatric surgery. She is readmitted with purulent drainage from the mid foot and severe pain. - Past Medical History Cardio/Vascular: Yes: CAD Gastrointestinal: Yes: GERD Renal/: Yes: Renal Failure, Other (renal obstruction s/p stents) ...LMP: 12/31/18 ...: No Endocrine: Yes: Diabetes Mellitus - Past Surgical History Past Surgical History: Yes: Amputation (R AKA) - Alcohol/Substance Use Hx Alcohol Use: No - Smoking History Smoking history: Never smoked Have you smoked in the past 12 months: No Aproximately how many cigarettes per day: 0 If you are a former smoker, when did you quit?: 1979 - Social History Usual Living Arrangement: Other (her son and her grown grandson live with her) ADL: Independent History of Recent Travel: No Home Medications - Allergies Allergies/Adverse Reactions: Allergies Allergy/AdvReac Type Severity Reaction Status Date / Time Sulfa (Sulfonamide Allergy Severe RASH,VOMITI Verified 05/05/19 15:07 Antibiotics) NG,DIZZINES S codeine [Codeine] Allergy Hives Verified 05/05/19 15:07 Penicillins Allergy Hives Verified 05/05/19 15:07 lactose AdvReac Verified 05/05/19 15:07 ranitidine [From Zantac] AdvReac headache Verified 05/05/19 15:07 - Home Medications Home Medications: Ambulatory Orders Hydroxychloroquine Sulfate [Plaquenil] 200 mg PO DAILY 10/20/15 Nifedipine [Procardia Xl] 60 mg PO BID 10/20/15 predniSONE [Deltasone -] 5 mg PO DAILY 10/20/15 Iron,Carbonyl [Feosol] 65 mg PO DAILY 11/20/15 Vitamin B Complex/Folic Acid [B Complex Formula #1 Tablet] 1 each PO DAILY 11/19 Labetalol HCl 200 mg PO TID 07/22/17 Calcium Carbonate [Calcium] 1,000 mg PO DAILY 05/17/18 Famotidine [Pepcid] 20 mg PO DAILY 05/17/18 Gabapentin [Neurontin -] 600 mg PO TID 05/17/18 Multivit-Min36/Iron/Folic Acid [Geritol Complete Tablet] 1 each PO DAILY Aspirin [ASA -] 81 mg PO DAILY tab.chew 06/01/18 Cholecalciferol (Vitamin D3) [Vitamin D3 -] 1,000 units PO DAILY 09/17/18 Acetaminophen [Tylenol .Extra-Strength -] 1,000 mg PO Q6H PRN tablet 01/07/19 Physical Exam Vital Signs: Vital Signs Temperature 98 F 05/06/19 16:06 Pulse Rate 75 05/06/19 16:06 Respiratory Rate 18 05/06/19 16:06 Blood Pressure 134/61 05/06/19 16:06 O2 Sat by Pulse Oximetry (%) 100 05/05/19 23:09 Extremities: Yes: Other (Left foot warm, open wound on plantar medial foot with surrounding erythema and tenderness. Pulses not palpable in foot.) Labs: CBC, BMP 05/06/19 07:30 05/06/19 07:30 Problem List - Problems (1) Atherosclerosis of [place] arteries of left leg with ulceration of other part of foot Assessment/Plan: Recurrent infection left foot with history of arterial disease. Will need to reassess distal flow and see if there is recurrent arterial occlusions. Code(s): I70.245 - ATHSCL [place] ARTERIES OF LEFT LEG W ULCERATION OTH PRT FOOT
[2019-05-06] MEDS ORDERED: PT OWN MED DRAWER 7, Y5N ONE (17:42)
[2019-05-06] MEDS ORDERED: AZTREONAM 1 GM in DEXTROSE 5%-WATER - 50 ML IVPB SCH (18:00)
[2019-05-06] MEDS: COLLAGENASE CLOSTRIDIUM HIST. 30 GRAMS TUBE TP SCH (22:32)
[2019-05-06] MEDS: ACETAMINOPHEN 325 MG TABLET (FP) PO PRN (22:34)
--- NOTE | 2019-05-06 23:27 | PN ---
Progress Note, Physician History of Present Illness: Pain has improved - Current Medication List Current Medications: Active Medications Acetaminophen (Tylenol -) 650 mg PO Q6H PRN PRN Reason: PAIN SCALE 3-10 Last Admin: 05/06/19 22:34 Dose: 650 mg Aspirin (Asa -) 81 mg PO DAILY [facility] Last Admin: 05/06/19 10:12 Dose: 81 mg Calcium Carbonate (Os-Ryan 500mg -) 1,000 mg PO DAILY [facility] Last Admin: 05/06/19 10:13 Dose: 1,000 mg Collagenase (Santyl -) 1 applic TP DAILY [facility]; Protocol Last Admin: 05/06/19 22:32 Dose: 1 applic Gabapentin (Neurontin -) 600 mg PO TID [facility] Heparin Sodium (Porcine) (Heparin -) 5,000 unit SQ BID [facility] Last Admin: 05/06/19 22:33 Dose: 5,000 unit Hydroxychloroquine Sulfate (Plaquenil -) 200 mg PO DAILY [facility] Last Admin: 05/06/19 10:12 Dose: 200 mg Vancomycin HCl (Vancomycin (Pre-Docked)) 1,000 mg in 250 mls @ 166.667 mls/hr IVPB Q12H [facility] Aztreonam 1 gm/ Dextrose 50 mls @ 100 mls/hr IVPB Q8H-IV [facility]; Protocol Last Admin: 05/06/19 18:53 Dose: 100 mls/hr Labetalol HCl (Normodyne -) 200 mg PO TID [facility] Last Admin: 05/06/19 22:32 Dose: 200 mg Nifedipine (Procardia Xl -) 60 mg PO BID [facility] Last Admin: 05/06/19 22:33 Dose: 60 mg Pantoprazole Sodium (Protonix -) 40 mg PO DAILY [facility] Last Admin: 05/06/19 10:13 Dose: 40 mg Prednisone (Deltasone -) 5 mg PO DAILY [facility] Last Admin: 05/06/19 10:12 Dose: 5 mg - Objective Vital Signs: Vital Signs Temperature 98.1 F 05/06/19 17:22 Pulse Rate 76 05/06/19 17:22 Respiratory Rate 20 05/06/19 17:22 Blood Pressure 154/64 05/06/19 17:22 O2 Sat by Pulse Oximetry (%) 100 05/05/19 23:09 HENT: Yes: WNL Neck: Yes: WNL, Supple Cardiovascular: Yes: WNL, Regular Rate and Rhythm Respiratory: Yes: WNL, Regular, CTA Bilaterally Gastrointestinal: Yes: WNL, Normal Bowel Sounds, Soft Extremities: Yes: Other (Lt foot w/ erythema around ulcer) Edema: Yes Edema: LLE: Trace, RLE: Trace Labs: CBC, BMP 05/06/19 07:30 05/06/19 07:30 Problem List - Problems (1) Foot ulcer, left Assessment/Plan: Cont IV antibxs Xray fot shows arthritic changes Code(s): L97.529 - NON-PRESSURE CHRONIC ULCER OTH PRT LEFT FOOT W UNSP SEVERITY (2) PAD (peripheral artery disease) Assessment/Plan: Vascular consult noted CTA results pending Code(s): I73.9 - PERIPHERAL VASCULAR DISEASE, UNSPECIFIED (3) Cellulitis of foot Assessment/Plan: Cont IV antibxs As per ID Code(s): L03.119 - CELLULITIS OF UNSPECIFIED PART OF LIMB (4) Anemia Code(s): D64.9 - ANEMIA, UNSPECIFIED Qualifiers: Anemia type: unspecified type Qualified Code(s): D64.9 - Anemia, unspecified (5) HTN (hypertension) Assessment/Plan: BP stable Cont labetalol/asa/procardia Code(s): I10 - ESSENTIAL (PRIMARY) HYPERTENSION Qualifiers: Hypertension type: secondary to endocrine disorders Qualified Code(s): I15.2 - Hypertension secondary to endocrine disorders (6) Left leg cellulitis Code(s): L03.116 - CELLULITIS OF LEFT LOWER LIMB (7) Peripheral neuropathy Assessment/Plan: Cont gabapentin Code(s): G62.9 - POLYNEUROPATHY, UNSPECIFIED (8) SLE (systemic lupus erythematosus related syndrome) Assessment/Plan: Cont plaquenil/prednisone Code(s): M32.9 - SYSTEMIC LUPUS ERYTHEMATOSUS, UNSPECIFIED (9) CAD (coronary artery disease) Code(s): I25.10 - ATHSCL HEART DISEASE OF [place] CORONARY ARTERY W/O ANG PCTRS (10) Hx of AKA (above knee amputation) Code(s): Z89.619 - ACQUIRED ABSENCE OF UNSPECIFIED LEG ABOVE KNEE
[2019-05-07] MEDS ORDERED: AZTREONAM 1 GM VIAL (RESTRICTED TO ID) ONE ×3 (01:03→19:00)
[2019-05-07] MEDS ORDERED: DEXTROSE 5%-WATER - 50 ML IVPB ONE ×3 (01:03→19:00)
[2019-05-07] MEDS: AZTREONAM 1 GM in DEXTROSE 5%-WATER - 50 ML IVPB SCH ×3 (02:10→19:10)
[2019-05-07] MEDS: GABAPENTIN 300 MG CAPSULE PO SCH ×3 (05:18→21:05)
[2019-05-07] MEDS: LABETALOL HCL 200 MG TABLET (FP) PO SCH ×3 (05:18→21:05)
--- NOTE | 2019-05-07 08:35 | PN ---
Progress Note, Physician History of Present Illness: Chronic wound left arch. - Current Medication List Current Medications: Active Medications Acetaminophen (Tylenol -) 650 mg PO Q6H PRN PRN Reason: PAIN SCALE 3-10 Last Admin: 05/06/19 22:34 Dose: 650 mg Aspirin (Asa -) 81 mg PO DAILY [facility] Last Admin: 05/06/19 10:12 Dose: 81 mg Calcium Carbonate (Os-Ryan 500mg -) 1,000 mg PO DAILY [facility] Last Admin: 05/06/19 10:13 Dose: 1,000 mg Collagenase (Santyl -) 1 applic TP DAILY [facility]; Protocol Last Admin: 05/06/19 22:32 Dose: 1 applic Gabapentin (Neurontin -) 600 mg PO TID [facility] Last Admin: 05/07/19 05:18 Dose: 600 mg Heparin Sodium (Porcine) (Heparin -) 5,000 unit SQ BID [facility] Last Admin: 05/06/19 22:33 Dose: 5,000 unit Hydroxychloroquine Sulfate (Plaquenil -) 200 mg PO DAILY [facility] Last Admin: 05/06/19 10:12 Dose: 200 mg Vancomycin HCl (Vancomycin (Pre-Docked)) 1,000 mg in 250 mls @ 166.667 mls/hr IVPB Q12H [facility] Aztreonam 1 gm/ Dextrose 50 mls @ 100 mls/hr IVPB Q8H-IV [facility]; Protocol Last Admin: 05/07/19 02:10 Dose: 100 mls/hr Labetalol HCl (Normodyne -) 200 mg PO TID [facility] Last Admin: 05/07/19 05:18 Dose: 200 mg Nifedipine (Procardia Xl -) 60 mg PO BID [facility] Last Admin: 05/06/19 22:33 Dose: 60 mg Pantoprazole Sodium (Protonix -) 40 mg PO DAILY [facility] Last Admin: 05/06/19 10:13 Dose: 40 mg Prednisone (Deltasone -) 5 mg PO DAILY [facility] Last Admin: 05/06/19 10:12 Dose: 5 mg - Objective Vital Signs: Vital Signs Temperature 97.4 F L 05/07/19 06:04 Pulse Rate 77 05/07/19 06:04 Respiratory Rate 18 05/07/19 06:04 Blood Pressure 147/69 05/07/19 06:04 O2 Sat by Pulse Oximetry (%) 100 05/05/19 23:09 Extremities: Yes: Other (improved cellulitis, -drainage, -mal odor, +improved tenderness) Labs: CBC, BMP 05/06/19 07:30 05/06/19 07:30 Assessment/Plan Improving cellulitis PVD Neuralgia Discussed with Dr. Gomez. IVABX as per ID. Santyl dressing to left foot. Consult neurology to manage pain.
--- NOTE | 2019-05-07 09:17 | PN ---
Progress Note, Physician History of Present Illness: feels much better leg improving ct scan done - Current Medication List Current Medications: Active Medications Acetaminophen (Tylenol -) 650 mg PO Q6H PRN PRN Reason: PAIN SCALE 3-10 Last Admin: 05/06/19 22:34 Dose: 650 mg Aspirin (Asa -) 81 mg PO DAILY [facility] Last Admin: 05/06/19 10:12 Dose: 81 mg Calcium Carbonate (Os-Ryan 500mg -) 1,000 mg PO DAILY [facility] Last Admin: 05/06/19 10:13 Dose: 1,000 mg Collagenase (Santyl -) 1 applic TP DAILY [facility]; Protocol Last Admin: 05/06/19 22:32 Dose: 1 applic Gabapentin (Neurontin -) 600 mg PO TID [facility] Last Admin: 05/07/19 05:18 Dose: 600 mg Heparin Sodium (Porcine) (Heparin -) 5,000 unit SQ BID [facility] Last Admin: 05/06/19 22:33 Dose: 5,000 unit Hydroxychloroquine Sulfate (Plaquenil -) 200 mg PO DAILY [facility] Last Admin: 05/06/19 10:12 Dose: 200 mg Vancomycin HCl (Vancomycin (Pre-Docked)) 1,000 mg in 250 mls @ 166.667 mls/hr IVPB Q12H [facility] Aztreonam 1 gm/ Dextrose 50 mls @ 100 mls/hr IVPB Q8H-IV [facility]; Protocol Last Admin: 05/07/19 02:10 Dose: 100 mls/hr Labetalol HCl (Normodyne -) 200 mg PO TID [facility] Last Admin: 05/07/19 05:18 Dose: 200 mg Nifedipine (Procardia Xl -) 60 mg PO BID [facility] Last Admin: 05/06/19 22:33 Dose: 60 mg Pantoprazole Sodium (Protonix -) 40 mg PO DAILY [facility] Last Admin: 05/06/19 10:13 Dose: 40 mg Prednisone (Deltasone -) 5 mg PO DAILY [facility] Last Admin: 05/06/19 10:12 Dose: 5 mg - Objective Vital Signs: Vital Signs Temperature 97.4 F L 05/07/19 06:04 Pulse Rate 77 05/07/19 06:04 Respiratory Rate 18 05/07/19 06:04 Blood Pressure 147/69 05/07/19 06:04 O2 Sat by Pulse Oximetry (%) 100 05/05/19 23:09 Constitutional: Yes: No Distress, Calm Cardiovascular: Yes: S1, S2 Respiratory: Yes: Regular, CTA Bilaterally Gastrointestinal: Yes: Normal Bowel Sounds, Soft Musculoskeletal: Yes: WNL Extremities: Yes: Other Wound/Incision: Yes: Dressing Dry and Intact Neurological: Yes: Alert, Oriented Psychiatric: Yes: Alert, Oriented Labs: CBC, BMP 05/06/19 07:30 05/06/19 07:30 Assessment/Plan Assessment/Plan Problem List - Problems (1) CAD (coronary artery disease) Code(s): I25.10 - ATHSCL HEART DISEASE OF [place] CORONARY ARTERY W/O ANG PCTRS (2) Connective tissue disease Code(s): M35.9 - SYSTEMIC INVOLVEMENT OF CONNECTIVE TISSUE, UNSPECIFIED (3) Diarrhea Code(s): R19.7 - DIARRHEA, UNSPECIFIED (4) Shingles Code(s): B02.9 - ZOSTER WITHOUT COMPLICATIONS Qualifiers: Herpes zoster complications: unspecified herpes zoster complication Qualified Code(s): B02.8 - Zoster with other complications (5) Fever Code(s): R50.9 - FEVER, UNSPECIFIED Qualifiers: Fever type: unspecified Qualified Code(s): R50.9 - Fever, unspecified (6) PVD (peripheral vascular disease) Code(s): I73.9 - PERIPHERAL VASCULAR DISEASE, UNSPECIFIED (7) Amputated right leg Code(s): Z89.611 - ACQUIRED ABSENCE OF RIGHT LEG ABOVE KNEE (8) HTN (hypertension) Code(s): I10 - ESSENTIAL (PRIMARY) HYPERTENSION Qualifiers: Hypertension type: secondary to endocrine disorders Qualified Code(s): I15.2 - Hypertension secondary to endocrine disorders (9) Lupus (systemic lupus erythematosus) Code(s): M32.9 - SYSTEMIC LUPUS ERYTHEMATOSUS, UNSPECIFIED 10 cellulitis of the leg plan continue abx podiatry on case wound care rest as per the team
[2019-05-07] MEDS: predniSONE 5 MG TABLET (UD) PO SCH (10:19)
[2019-05-07] MEDS: NIFEdipine E.R 60 MG TABLET PO SCH ×2 (10:19→21:06)
[2019-05-07] MEDS: ASPIRIN 81 MG CHEWABLE TABLETS PO SCH (10:19)
[2019-05-07] MEDS: PANTOPRAZOLE 40 MG TABLET PO SCH (10:20)
[2019-05-07] MEDS: HEPARIN NA (PORCINE) 5,000 UNITS/ML 1ML VIAL SQ SCH ×2 (10:20→21:05)
[2019-05-07] MEDS: HYDROXYCHLOROQUINE SO4 200 MG TABLET (FP) PO SCH (10:20)
[2019-05-07] MEDS: CALCIUM (OYSTER SHELL) 500 MG TABLET (FP) PO SCH (10:20)
[2019-05-07] MEDS: COLLAGENASE CLOSTRIDIUM HIST. 30 GRAMS TUBE TP SCH (10:23)
--- NOTE | 2019-05-07 15:04 | PN ---
Progress Note (short form) - Note Progress Note: VASCULAR SURGERY CTA w/ LE runoff completed. Awaiting official report.
[2019-05-07] MEDS ORDERED: PT OWN MED DRAWER 7, Y5N ONE (18:25)
--- NOTE | 2019-05-07 23:32 | PN ---
Progress Note, Physician History of Present Illness: No new complaints - Current Medication List Current Medications: Active Medications Acetaminophen (Tylenol -) 650 mg PO Q6H PRN PRN Reason: PAIN SCALE 3-10 Last Admin: 05/06/19 22:34 Dose: 650 mg Aspirin (Asa -) 81 mg PO DAILY [facility] Last Admin: 05/07/19 10:19 Dose: 81 mg Calcium Carbonate (Os-Ryan 500mg -) 1,000 mg PO DAILY [facility] Last Admin: 05/07/19 10:20 Dose: 1,000 mg Collagenase (Santyl -) 1 applic TP DAILY [facility]; Protocol Last Admin: 05/07/19 10:23 Dose: 1 applic Gabapentin (Neurontin -) 600 mg PO TID [facility] Last Admin: 05/07/19 21:05 Dose: 600 mg Heparin Sodium (Porcine) (Heparin -) 5,000 unit SQ BID [facility] Last Admin: 05/07/19 21:05 Dose: 5,000 unit Hydroxychloroquine Sulfate (Plaquenil -) 200 mg PO DAILY [facility] Last Admin: 05/07/19 10:20 Dose: 200 mg Vancomycin HCl (Vancomycin (Pre-Docked)) 1,000 mg in 250 mls @ 166.667 mls/hr IVPB Q12H [facility] Aztreonam 1 gm/ Dextrose 50 mls @ 100 mls/hr IVPB Q8H-IV [facility]; Protocol Last Admin: 05/07/19 19:10 Dose: 100 mls/hr Labetalol HCl (Normodyne -) 200 mg PO TID [facility] Last Admin: 05/07/19 21:05 Dose: 200 mg Nifedipine (Procardia Xl -) 60 mg PO BID [facility] Last Admin: 05/07/19 21:06 Dose: 60 mg Pantoprazole Sodium (Protonix -) 40 mg PO DAILY [facility] Last Admin: 05/07/19 10:20 Dose: 40 mg Prednisone (Deltasone -) 5 mg PO DAILY [facility] Last Admin: 05/07/19 10:19 Dose: 5 mg - Objective Vital Signs: Vital Signs Temperature 98.4 F 05/07/19 17:29 Pulse Rate 81 05/07/19 17:29 Respiratory Rate 20 05/07/19 17:29 Blood Pressure 155/74 05/07/19 17:29 O2 Sat by Pulse Oximetry (%) 100 05/05/19 23:09 Cardiovascular: Yes: WNL, Regular Rate and Rhythm Respiratory: Yes: WNL, Regular, CTA Bilaterally Gastrointestinal: Yes: WNL, Normal Bowel Sounds, Soft Extremities: Yes: Other (Lt foot ulcer w/ surrounding erythema) Edema: LLE: Trace, RLE: Trace Labs: CBC, BMP 05/06/19 07:30 05/06/19 07:30 Problem List - Problems (1) Foot ulcer, left Assessment/Plan: Cont IV antibxs Xray foot shows arthritic changes Podiatry/ID consults noted Code(s): L97.529 - NON-PRESSURE CHRONIC ULCER OTH PRT LEFT FOOT W UNSP SEVERITY (2) PAD (peripheral artery disease) Assessment/Plan: Vascular consult noted May need CTA Code(s): I73.9 - PERIPHERAL VASCULAR DISEASE, UNSPECIFIED (3) Cellulitis of foot Assessment/Plan: Cont IV antibxs Probably change to po antibx in am Code(s): L03.119 - CELLULITIS OF UNSPECIFIED PART OF LIMB (4) Anemia Code(s): D64.9 - ANEMIA, UNSPECIFIED Qualifiers: Anemia type: unspecified type Qualified Code(s): D64.9 - Anemia, unspecified (5) HTN (hypertension) Assessment/Plan: BP stable Cont labetalol/asa/procardia Code(s): I10 - ESSENTIAL (PRIMARY) HYPERTENSION Qualifiers: Hypertension type: secondary to endocrine disorders Qualified Code(s): I15.2 - Hypertension secondary to endocrine disorders (6) Left leg cellulitis Code(s): L03.116 - CELLULITIS OF LEFT LOWER LIMB (7) Peripheral neuropathy Assessment/Plan: Cont gabapentin Neuro consult noted Code(s): G62.9 - POLYNEUROPATHY, UNSPECIFIED (8) SLE (systemic lupus erythematosus related syndrome) Assessment/Plan: Cont plaquenil/prednisone Code(s): M32.9 - SYSTEMIC LUPUS ERYTHEMATOSUS, UNSPECIFIED (9) CAD (coronary artery disease) Code(s): I25.10 - ATHSCL HEART DISEASE OF [place] CORONARY ARTERY W/O ANG PCTRS (10) Hx of AKA (above knee amputation) Code(s): Z89.619 - ACQUIRED ABSENCE OF UNSPECIFIED LEG ABOVE KNEE
[2019-05-08] MEDS ORDERED: AZTREONAM 1 GM VIAL (RESTRICTED TO ID) ONE ×3 (01:16→17:13)
[2019-05-08] MEDS ORDERED: DEXTROSE 5%-WATER - 50 ML IVPB ONE ×3 (01:16→17:13)
[2019-05-08] MEDS: AZTREONAM 1 GM in DEXTROSE 5%-WATER - 50 ML IVPB SCH ×3 (01:58→17:38)
[2019-05-08] MEDS: GABAPENTIN 300 MG CAPSULE PO SCH ×3 (05:48→21:12)
[2019-05-08] MEDS: LABETALOL HCL 200 MG TABLET (FP) PO SCH ×3 (05:48→21:12)
[2019-05-08] MEDS ORDERED: PT OWN MED DRAWER 7, Y5N ONE (09:32)
[2019-05-08] MEDS: PANTOPRAZOLE 40 MG TABLET PO SCH (09:40)
[2019-05-08] MEDS: CALCIUM (OYSTER SHELL) 500 MG TABLET (FP) PO SCH (09:40)
[2019-05-08] MEDS: ASPIRIN 81 MG CHEWABLE TABLETS PO SCH (09:40)
[2019-05-08] MEDS: predniSONE 5 MG TABLET (UD) PO SCH (09:41)
[2019-05-08] MEDS: NIFEdipine E.R 60 MG TABLET PO SCH ×2 (09:41→21:12)
[2019-05-08] MEDS: HYDROXYCHLOROQUINE SO4 200 MG TABLET (FP) PO SCH (09:41)
[2019-05-08] MEDS: HEPARIN NA (PORCINE) 5,000 UNITS/ML 1ML VIAL SQ SCH ×2 (09:41→21:12)
[2019-05-08] MEDS: COLLAGENASE CLOSTRIDIUM HIST. 30 GRAMS TUBE TP SCH (09:43)
--- NOTE | 2019-05-08 09:52 | PN ---
Progress Note, Physician History of Present Illness: stable no new issues - Current Medication List Current Medications: Active Medications Acetaminophen (Tylenol -) 650 mg PO Q6H PRN PRN Reason: PAIN SCALE 3-10 Last Admin: 05/06/19 22:34 Dose: 650 mg Aspirin (Asa -) 81 mg PO DAILY [facility] Last Admin: 05/08/19 09:40 Dose: 81 mg Calcium Carbonate (Os-Ryan 500mg -) 1,000 mg PO DAILY [facility] Last Admin: 05/08/19 09:40 Dose: 1,000 mg Collagenase (Santyl -) 1 applic TP DAILY [facility]; Protocol Last Admin: 05/08/19 09:43 Dose: 1 applic Gabapentin (Neurontin -) 600 mg PO TID [facility] Last Admin: 05/08/19 05:48 Dose: 600 mg Heparin Sodium (Porcine) (Heparin -) 5,000 unit SQ BID [facility] Last Admin: 05/08/19 09:41 Dose: 5,000 unit Hydroxychloroquine Sulfate (Plaquenil -) 200 mg PO DAILY [facility] Last Admin: 05/08/19 09:41 Dose: 200 mg Vancomycin HCl (Vancomycin (Pre-Docked)) 1,000 mg in 250 mls @ 166.667 mls/hr IVPB Q12H [facility] Aztreonam 1 gm/ Dextrose 50 mls @ 100 mls/hr IVPB Q8H-IV [facility]; Protocol Last Admin: 05/08/19 09:40 Dose: 100 mls/hr Labetalol HCl (Normodyne -) 200 mg PO TID [facility] Last Admin: 05/08/19 05:48 Dose: 200 mg Nifedipine (Procardia Xl -) 60 mg PO BID [facility] Last Admin: 05/08/19 09:41 Dose: 60 mg Pantoprazole Sodium (Protonix -) 40 mg PO DAILY [facility] Last Admin: 05/08/19 09:40 Dose: 40 mg Prednisone (Deltasone -) 5 mg PO DAILY [facility] Last Admin: 05/08/19 09:41 Dose: 5 mg - Objective Vital Signs: Vital Signs Temperature 98.3 F 05/08/19 09:19 Pulse Rate 81 05/08/19 09:19 Respiratory Rate 20 05/08/19 09:19 Blood Pressure 149/70 05/08/19 09:19 O2 Sat by Pulse Oximetry (%) 100 05/05/19 23:09 Constitutional: Yes: No Distress, Calm Cardiovascular: Yes: S1, S2 Respiratory: Yes: Regular, CTA Bilaterally Gastrointestinal: Yes: Normal Bowel Sounds, Soft Musculoskeletal: Yes: WNL Extremities: Yes: WNL Wound/Incision: Yes: Dressing Dry and Intact Neurological: Yes: Alert, Oriented Psychiatric: Yes: Alert, Oriented Labs: CBC, BMP 05/06/19 07:30 05/06/19 07:30 Assessment/Plan Assessment/Plan Problem List - Problems (1) CAD (coronary artery disease) Code(s): I25.10 - ATHSCL HEART DISEASE OF [place] CORONARY ARTERY W/O ANG PCTRS (2) Connective tissue disease Code(s): M35.9 - SYSTEMIC INVOLVEMENT OF CONNECTIVE TISSUE, UNSPECIFIED (3) Diarrhea Code(s): R19.7 - DIARRHEA, UNSPECIFIED (4) Shingles Code(s): B02.9 - ZOSTER WITHOUT COMPLICATIONS Qualifiers: Herpes zoster complications: unspecified herpes zoster complication Qualified Code(s): B02.8 - Zoster with other complications (5) Fever Code(s): R50.9 - FEVER, UNSPECIFIED Qualifiers: Fever type: unspecified Qualified Code(s): R50.9 - Fever, unspecified (6) PVD (peripheral vascular disease) Code(s): I73.9 - PERIPHERAL VASCULAR DISEASE, UNSPECIFIED (7) Amputated right leg Code(s): Z89.611 - ACQUIRED ABSENCE OF RIGHT LEG ABOVE KNEE (8) HTN (hypertension) Code(s): I10 - ESSENTIAL (PRIMARY) HYPERTENSION Qualifiers: Hypertension type: secondary to endocrine disorders Qualified Code(s): I15.2 - Hypertension secondary to endocrine disorders (9) Lupus (systemic lupus erythematosus) Code(s): M32.9 - SYSTEMIC LUPUS ERYTHEMATOSUS, UNSPECIFIED 10 cellulitis of the leg plan abx continue current mgmt rest as per the team
--- NOTE | 2019-05-08 10:16 | PN ---
Progress Note (short form) - Note Progress Note: Chronic wound -infected leftfoot,Assessment- improving cellulitis,pvd,Neuralgia Ivabx as per I.D Santyl dressing left foot Currently on Neurotin. Extremities+ grade 2 wound left arch, - drainage today, + improved cellulitis Dr Daniels will follow
--- NOTE | 2019-05-08 12:26 | PN ---
Progress Note (short form) - Note Progress Note: Patient wants to go home. Arterial Doppler shows good flow to left foot. CTA not helpful in evaluating tibial arteries due to poorly performed test. At this time, there does not appear to be any significant arterial insufficiency to the left foot. Podiatric surgery may proceed as per Dr. Rubin. Problem List - Problems (1) Atherosclerosis of [place] arteries of left leg with ulceration of other part of foot Code(s): I70.245 - ATHSCL [place] ARTERIES OF LEFT LEG W ULCERATION OTH PRT FOOT
[2019-05-08] MEDS: ACETAMINOPHEN 325 MG TABLET (FP) PO PRN (16:34)
--- NOTE | 2019-05-08 23:03 | PN ---
Progress Note, Physician - Current Medication List Current Medications: Active Medications Acetaminophen (Tylenol -) 650 mg PO Q6H PRN PRN Reason: PAIN SCALE 3-10 Last Admin: 05/08/19 16:34 Dose: 650 mg Aspirin (Asa -) 81 mg PO DAILY [facility] Last Admin: 05/08/19 09:40 Dose: 81 mg Calcium Carbonate (Os-Ryan 500mg -) 1,000 mg PO DAILY [facility] Last Admin: 05/08/19 09:40 Dose: 1,000 mg Collagenase (Santyl -) 1 applic TP DAILY [facility]; Protocol Last Admin: 05/08/19 09:43 Dose: 1 applic Gabapentin (Neurontin -) 600 mg PO TID [facility] Last Admin: 05/08/19 21:12 Dose: 600 mg Heparin Sodium (Porcine) (Heparin -) 5,000 unit SQ BID [facility] Last Admin: 05/08/19 21:12 Dose: 5,000 unit Hydroxychloroquine Sulfate (Plaquenil -) 200 mg PO DAILY [facility] Last Admin: 05/08/19 09:41 Dose: 200 mg Vancomycin HCl (Vancomycin (Pre-Docked)) 1,000 mg in 250 mls @ 166.667 mls/hr IVPB Q12H [facility] Aztreonam 1 gm/ Dextrose 50 mls @ 100 mls/hr IVPB Q8H-IV [facility]; Protocol Last Admin: 05/08/19 17:38 Dose: 100 mls/hr Labetalol HCl (Normodyne -) 200 mg PO TID [facility] Last Admin: 05/08/19 21:12 Dose: 200 mg Nifedipine (Procardia Xl -) 60 mg PO BID [facility] Last Admin: 05/08/19 21:12 Dose: 60 mg Pantoprazole Sodium (Protonix -) 40 mg PO DAILY [facility] Last Admin: 05/08/19 09:40 Dose: 40 mg Prednisone (Deltasone -) 5 mg PO DAILY [facility] Last Admin: 05/08/19 09:41 Dose: 5 mg - Objective Vital Signs: Vital Signs Temperature 99.3 F 05/08/19 21:59 Pulse Rate 84 05/08/19 21:59 Respiratory Rate 18 05/08/19 21:59 Blood Pressure 151/65 05/08/19 21:59 O2 Sat by Pulse Oximetry (%) 96 05/08/19 21:00 Labs: CBC, BMP 05/06/19 07:30 05/06/19 07:30 Problem List - Problems (1) Foot ulcer, left Code(s): L97.529 - NON-PRESSURE CHRONIC ULCER OTH PRT LEFT FOOT W UNSP SEVERITY (2) PAD (peripheral artery disease) Code(s): I73.9 - PERIPHERAL VASCULAR DISEASE, UNSPECIFIED (3) Cellulitis of foot Code(s): L03.119 - CELLULITIS OF UNSPECIFIED PART OF LIMB (4) Anemia Code(s): D64.9 - ANEMIA, UNSPECIFIED Qualifiers: Anemia type: unspecified type Qualified Code(s): D64.9 - Anemia, unspecified (5) HTN (hypertension) Code(s): I10 - ESSENTIAL (PRIMARY) HYPERTENSION Qualifiers: Hypertension type: secondary to endocrine disorders Qualified Code(s): I15.2 - Hypertension secondary to endocrine disorders (6) Left leg cellulitis Code(s): L03.116 - CELLULITIS OF LEFT LOWER LIMB (7) Peripheral neuropathy Code(s): G62.9 - POLYNEUROPATHY, UNSPECIFIED (8) SLE (systemic lupus erythematosus related syndrome) Code(s): M32.9 - SYSTEMIC LUPUS ERYTHEMATOSUS, UNSPECIFIED (9) CAD (coronary artery disease) Code(s): I25.10 - ATHSCL HEART DISEASE OF [place] CORONARY ARTERY W/O ANG PCTRS (10) Hx of AKA (above knee amputation) Code(s): Z89.619 - ACQUIRED ABSENCE OF UNSPECIFIED LEG ABOVE KNEE
[2019-05-09] MEDS ORDERED: AZTREONAM 1 GM VIAL (RESTRICTED TO ID) ONE ×3 (00:25→17:05)
[2019-05-09] MEDS ORDERED: DEXTROSE 5%-WATER - 50 ML IVPB ONE ×3 (00:26→17:05)
[2019-05-09] MEDS: AZTREONAM 1 GM in DEXTROSE 5%-WATER - 50 ML IVPB SCH ×3 (01:31→17:10)
[2019-05-09] MEDS: GABAPENTIN 300 MG CAPSULE PO SCH ×3 (06:24→21:30)
[2019-05-09] MEDS: LABETALOL HCL 200 MG TABLET (FP) PO SCH ×3 (06:24→21:31)
[2019-05-09] MEDS: NIFEdipine E.R 60 MG TABLET PO SCH ×2 (09:23→21:33)
[2019-05-09] MEDS: HYDROXYCHLOROQUINE SO4 200 MG TABLET (FP) PO SCH (09:23)
[2019-05-09] MEDS: PANTOPRAZOLE 40 MG TABLET PO SCH (09:23)
[2019-05-09] MEDS: HEPARIN NA (PORCINE) 5,000 UNITS/ML 1ML VIAL SQ SCH ×2 (09:23→21:31)
[2019-05-09] MEDS: ASPIRIN 81 MG CHEWABLE TABLETS PO SCH (09:23)
[2019-05-09] MEDS: CALCIUM (OYSTER SHELL) 500 MG TABLET (FP) PO SCH (09:23)
[2019-05-09] MEDS: predniSONE 5 MG TABLET (UD) PO SCH (09:23)
[2019-05-09] MEDS: COLLAGENASE CLOSTRIDIUM HIST. 30 GRAMS TUBE TP SCH (09:24)
--- NOTE | 2019-05-09 12:14 | PN ---
Progress Note, Physician History of Present Illness: stable no new issues - Current Medication List Current Medications: Active Medications Acetaminophen (Tylenol -) 650 mg PO Q6H PRN PRN Reason: PAIN SCALE 3-10 Last Admin: 05/08/19 16:34 Dose: 650 mg Aspirin (Asa -) 81 mg PO DAILY [facility] Last Admin: 05/09/19 09:23 Dose: 81 mg Calcium Carbonate (Os-Ryan 500mg -) 1,000 mg PO DAILY [facility] Last Admin: 05/09/19 09:23 Dose: 1,000 mg Collagenase (Santyl -) 1 applic TP DAILY [facility]; Protocol Last Admin: 05/09/19 09:24 Dose: 1 applic Gabapentin (Neurontin -) 600 mg PO TID [facility] Last Admin: 05/09/19 06:24 Dose: 600 mg Heparin Sodium (Porcine) (Heparin -) 5,000 unit SQ BID [facility] Last Admin: 05/09/19 09:23 Dose: 5,000 unit Hydroxychloroquine Sulfate (Plaquenil -) 200 mg PO DAILY [facility] Last Admin: 05/09/19 09:23 Dose: 200 mg Vancomycin HCl (Vancomycin (Pre-Docked)) 1,000 mg in 250 mls @ 166.667 mls/hr IVPB Q12H [facility] Aztreonam 1 gm/ Dextrose 50 mls @ 100 mls/hr IVPB Q8H-IV [facility]; Protocol Last Admin: 05/09/19 09:22 Dose: 100 mls/hr Labetalol HCl (Normodyne -) 200 mg PO TID [facility] Last Admin: 05/09/19 06:24 Dose: 200 mg Nifedipine (Procardia Xl -) 60 mg PO BID [facility] Last Admin: 05/09/19 09:23 Dose: 60 mg Pantoprazole Sodium (Protonix -) 40 mg PO DAILY [facility] Last Admin: 05/09/19 09:23 Dose: 40 mg Prednisone (Deltasone -) 5 mg PO DAILY [facility] Last Admin: 05/09/19 09:23 Dose: 5 mg - Objective Vital Signs: Vital Signs Temperature 99.0 F 05/09/19 10:00 Pulse Rate 82 05/09/19 10:00 Respiratory Rate 20 05/09/19 10:00 Blood Pressure 137/63 05/09/19 10:00 O2 Sat by Pulse Oximetry (%) 96 05/08/19 21:00 Constitutional: Yes: No Distress, Calm Cardiovascular: Yes: S1, S2 Respiratory: Yes: Regular, CTA Bilaterally Gastrointestinal: Yes: Normal Bowel Sounds, Soft Musculoskeletal: Yes: WNL Extremities: Yes: Other Neurological: Yes: Alert, Oriented Psychiatric: Yes: Alert, Oriented Labs: CBC, BMP 05/06/19 07:30 05/06/19 07:30 Assessment/Plan Assessment/Plan Problem List - Problems (1) CAD (coronary artery disease) Code(s): I25.10 - ATHSCL HEART DISEASE OF [place] CORONARY ARTERY W/O ANG PCTRS (2) Connective tissue disease Code(s): M35.9 - SYSTEMIC INVOLVEMENT OF CONNECTIVE TISSUE, UNSPECIFIED (3) Diarrhea Code(s): R19.7 - DIARRHEA, UNSPECIFIED (4) Shingles Code(s): B02.9 - ZOSTER WITHOUT COMPLICATIONS Qualifiers: Herpes zoster complications: unspecified herpes zoster complication Qualified Code(s): B02.8 - Zoster with other complications (5) Fever Code(s): R50.9 - FEVER, UNSPECIFIED Qualifiers: Fever type: unspecified Qualified Code(s): R50.9 - Fever, unspecified (6) PVD (peripheral vascular disease) Code(s): I73.9 - PERIPHERAL VASCULAR DISEASE, UNSPECIFIED (7) Amputated right leg Code(s): Z89.611 - ACQUIRED ABSENCE OF RIGHT LEG ABOVE KNEE (8) HTN (hypertension) Code(s): I10 - ESSENTIAL (PRIMARY) HYPERTENSION Qualifiers: Hypertension type: secondary to endocrine disorders Qualified Code(s): I15.2 - Hypertension secondary to endocrine disorders (9) Lupus (systemic lupus erythematosus) Code(s): M32.9 - SYSTEMIC LUPUS ERYTHEMATOSUS, UNSPECIFIED 10 cellulitis of the leg plan abx continue current mgmt rest as per the team
[2019-05-09] MEDS: ACETAMINOPHEN 325 MG TABLET (FP) PO PRN (21:42)
--- NOTE | 2019-05-09 23:45 | PN ---
Progress Note, Physician History of Present Illness: No new complaints - Current Medication List Current Medications: Active Medications Acetaminophen (Tylenol -) 650 mg PO Q6H PRN PRN Reason: PAIN SCALE 3-10 Last Admin: 05/09/19 21:42 Dose: 650 mg Aspirin (Asa -) 81 mg PO DAILY [facility] Last Admin: 05/09/19 09:23 Dose: 81 mg Calcium Carbonate (Os-Ryan 500mg -) 1,000 mg PO DAILY [facility] Last Admin: 05/09/19 09:23 Dose: 1,000 mg Collagenase (Santyl -) 1 applic TP DAILY [facility]; Protocol Last Admin: 05/09/19 09:24 Dose: 1 applic Gabapentin (Neurontin -) 600 mg PO TID [facility] Last Admin: 05/09/19 21:30 Dose: 600 mg Heparin Sodium (Porcine) (Heparin -) 5,000 unit SQ BID [facility] Last Admin: 05/09/19 21:31 Dose: 5,000 unit Hydroxychloroquine Sulfate (Plaquenil -) 200 mg PO DAILY [facility] Last Admin: 05/09/19 09:23 Dose: 200 mg Vancomycin HCl (Vancomycin (Pre-Docked)) 1,000 mg in 250 mls @ 166.667 mls/hr IVPB Q12H [facility] Aztreonam 1 gm/ Dextrose 50 mls @ 100 mls/hr IVPB Q8H-IV [facility]; Protocol Last Admin: 05/09/19 17:10 Dose: 100 mls/hr Labetalol HCl (Normodyne -) 200 mg PO TID [facility] Last Admin: 05/09/19 21:31 Dose: 200 mg Nifedipine (Procardia Xl -) 60 mg PO BID [facility] Last Admin: 05/09/19 21:33 Dose: 60 mg Pantoprazole Sodium (Protonix -) 40 mg PO DAILY [facility] Last Admin: 05/09/19 09:23 Dose: 40 mg Prednisone (Deltasone -) 5 mg PO DAILY [facility] Last Admin: 05/09/19 09:23 Dose: 5 mg - Objective Vital Signs: Vital Signs Temperature 98.0 F 05/09/19 21:37 Pulse Rate 74 05/09/19 21:37 Respiratory Rate 17 05/09/19 21:37 Blood Pressure 143/55 L 05/09/19 21:37 O2 Sat by Pulse Oximetry (%) 98 05/09/19 21:00 Cardiovascular: Yes: WNL, Regular Rate and Rhythm Respiratory: Yes: WNL, Regular, CTA Bilaterally Gastrointestinal: Yes: WNL, Normal Bowel Sounds, Soft Labs: CBC, BMP 05/06/19 07:30 05/06/19 07:30 Problem List - Problems (1) Foot ulcer, left Assessment/Plan: Cont IV antibxs Xray fot shows arthritic changes Code(s): L97.529 - NON-PRESSURE CHRONIC ULCER OTH PRT LEFT FOOT W UNSP SEVERITY (2) PAD (peripheral artery disease) Assessment/Plan: Vascular consult noted CTA results pending Code(s): I73.9 - PERIPHERAL VASCULAR DISEASE, UNSPECIFIED (3) Cellulitis of foot Assessment/Plan: Cont IV antibxs As per ID Code(s): L03.119 - CELLULITIS OF UNSPECIFIED PART OF LIMB (4) Anemia Code(s): D64.9 - ANEMIA, UNSPECIFIED Qualifiers: Anemia type: unspecified type Qualified Code(s): D64.9 - Anemia, unspecified (5) HTN (hypertension) Code(s): I10 - ESSENTIAL (PRIMARY) HYPERTENSION Qualifiers: Hypertension type: secondary to endocrine disorders Qualified Code(s): I15.2 - Hypertension secondary to endocrine disorders (6) Peripheral neuropathy Code(s): G62.9 - POLYNEUROPATHY, UNSPECIFIED (7) SLE (systemic lupus erythematosus related syndrome) Code(s): M32.9 - SYSTEMIC LUPUS ERYTHEMATOSUS, UNSPECIFIED (8) CAD (coronary artery disease) Code(s): I25.10 - ATHSCL HEART DISEASE OF [place] CORONARY ARTERY W/O ANG PCTRS (9) Hx of AKA (above knee amputation) Code(s): Z89.619 - ACQUIRED ABSENCE OF UNSPECIFIED LEG ABOVE KNEE
[2019-05-10] MEDS ORDERED: AZTREONAM 1 GM VIAL (RESTRICTED TO ID) ONE ×3 (02:57→17:33)
[2019-05-10] MEDS: AZTREONAM 1 GM in DEXTROSE 5%-WATER - 50 ML IVPB SCH ×3 (03:02→17:48)
[2019-05-10] MEDS: GABAPENTIN 300 MG CAPSULE PO SCH ×3 (06:28→21:38)
[2019-05-10] MEDS: LABETALOL HCL 200 MG TABLET (FP) PO SCH ×3 (06:28→21:38)
[2019-05-10] MEDS ORDERED: DEXTROSE 5%-WATER - 50 ML IVPB ONE ×2 (09:28→17:33)
[2019-05-10] MEDS ORDERED: PT OWN MED DRAWER 7, Y5N ONE (09:29)
[2019-05-10] MEDS: predniSONE 5 MG TABLET (UD) PO SCH (09:32)
[2019-05-10] MEDS: ASPIRIN 81 MG CHEWABLE TABLETS PO SCH (09:32)
[2019-05-10] MEDS: CALCIUM (OYSTER SHELL) 500 MG TABLET (FP) PO SCH (09:32)
[2019-05-10] MEDS: HYDROXYCHLOROQUINE SO4 200 MG TABLET (FP) PO SCH (09:32)
[2019-05-10] MEDS: PANTOPRAZOLE 40 MG TABLET PO SCH (09:33)
[2019-05-10] MEDS: NIFEdipine E.R 60 MG TABLET PO SCH ×2 (09:33→21:39)
[2019-05-10] MEDS: HEPARIN NA (PORCINE) 5,000 UNITS/ML 1ML VIAL SQ SCH ×3 (09:34→21:38)
--- NOTE | 2019-05-10 11:54 | PN ---
Progress Note (short form) - Note Progress Note: FUV left foot. VSS +stable and improving cellulitis left foot, +inproved pain left foot, + improving superficial wound Cellulitis improving Grade 1-2 wound left Betadine dressing change daily. Moises lock. No surgical procedure indicated at this time. This wound was caused by ill fitting shoes. Will follow. Abx as per ID. Read and appreciated Dr. Gomez note.
--- NOTE | 2019-05-10 12:40 | PN ---
Progress Note, Physician History of Present Illness: stable no new issues leg improving - Current Medication List Current Medications: Active Medications Acetaminophen (Tylenol -) 650 mg PO Q6H PRN PRN Reason: PAIN SCALE 3-10 Last Admin: 05/09/19 21:42 Dose: 650 mg Aspirin (Asa -) 81 mg PO DAILY [facility] Last Admin: 05/10/19 09:32 Dose: 81 mg Calcium Carbonate (Os-Ryan 500mg -) 1,000 mg PO DAILY [facility] Last Admin: 05/10/19 09:32 Dose: 1,000 mg Collagenase (Santyl -) 1 applic TP DAILY [facility]; Protocol Last Admin: 05/09/19 09:24 Dose: 1 applic Gabapentin (Neurontin -) 600 mg PO TID [facility] Last Admin: 05/10/19 06:28 Dose: 600 mg Heparin Sodium (Porcine) (Heparin -) 5,000 unit SQ BID [facility] Last Admin: 05/10/19 09:42 Dose: 5,000 unit Hydroxychloroquine Sulfate (Plaquenil -) 200 mg PO DAILY [facility] Last Admin: 05/10/19 09:32 Dose: 200 mg Vancomycin HCl (Vancomycin (Pre-Docked)) 1,000 mg in 250 mls @ 166.667 mls/hr IVPB Q12H [facility] Aztreonam 1 gm/ Dextrose 50 mls @ 100 mls/hr IVPB Q8H-IV [facility]; Protocol Last Admin: 05/10/19 09:33 Dose: 100 mls/hr Labetalol HCl (Normodyne -) 200 mg PO TID [facility] Last Admin: 05/10/19 06:28 Dose: 200 mg Nifedipine (Procardia Xl -) 60 mg PO BID [facility] Last Admin: 05/10/19 09:33 Dose: 60 mg Pantoprazole Sodium (Protonix -) 40 mg PO DAILY [facility] Last Admin: 05/10/19 09:33 Dose: 40 mg Prednisone (Deltasone -) 5 mg PO DAILY [facility] Last Admin: 05/10/19 09:32 Dose: 5 mg - Objective Vital Signs: Vital Signs Temperature 98.2 F 05/10/19 06:27 Pulse Rate 72 05/10/19 06:27 Respiratory Rate 17 05/10/19 06:27 Blood Pressure 144/59 L 05/10/19 06:27 O2 Sat by Pulse Oximetry (%) 98 05/09/19 21:00 Constitutional: Yes: No Distress, Calm HENT: Yes: Atraumatic, Normocephalic Cardiovascular: Yes: S1, S2 Respiratory: Yes: Regular, CTA Bilaterally Gastrointestinal: Yes: Normal Bowel Sounds, Soft Wound/Incision: Yes: Dressing Removed, Other (wound looks good) Neurological: Yes: Alert, Oriented Psychiatric: Yes: Alert, Oriented Labs: CBC, BMP 05/06/19 07:30 05/06/19 07:30 Assessment/Plan Assessment/Plan Problem List - Problems (1) CAD (coronary artery disease) Code(s): I25.10 - ATHSCL HEART DISEASE OF [place] CORONARY ARTERY W/O ANG PCTRS (2) Connective tissue disease Code(s): M35.9 - SYSTEMIC INVOLVEMENT OF CONNECTIVE TISSUE, UNSPECIFIED (3) Diarrhea Code(s): R19.7 - DIARRHEA, UNSPECIFIED (4) Shingles Code(s): B02.9 - ZOSTER WITHOUT COMPLICATIONS Qualifiers: Herpes zoster complications: unspecified herpes zoster complication Qualified Code(s): B02.8 - Zoster with other complications (5) Fever Code(s): R50.9 - FEVER, UNSPECIFIED Qualifiers: Fever type: unspecified Qualified Code(s): R50.9 - Fever, unspecified (6) PVD (peripheral vascular disease) Code(s): I73.9 - PERIPHERAL VASCULAR DISEASE, UNSPECIFIED (7) Amputated right leg Code(s): Z89.611 - ACQUIRED ABSENCE OF RIGHT LEG ABOVE KNEE (8) HTN (hypertension) Code(s): I10 - ESSENTIAL (PRIMARY) HYPERTENSION Qualifiers: Hypertension type: secondary to endocrine disorders Qualified Code(s): I15.2 - Hypertension secondary to endocrine disorders (9) Lupus (systemic lupus erythematosus) Code(s): M32.9 - SYSTEMIC LUPUS ERYTHEMATOSUS, UNSPECIFIED 10 cellulitis of the leg plan abx continue current mgmt rest as per the team
[2019-05-10] MEDS: COLLAGENASE CLOSTRIDIUM HIST. 30 GRAMS TUBE TP SCH (13:25)
--- NOTE | 2019-05-10 18:31 | PN ---
Progress Note, Physician History of Present Illness: stable - Current Medication List Current Medications: Active Medications Acetaminophen (Tylenol -) 650 mg PO Q6H PRN PRN Reason: PAIN SCALE 3-10 Last Admin: 05/09/19 21:42 Dose: 650 mg Aspirin (Asa -) 81 mg PO DAILY [facility] Last Admin: 05/10/19 09:32 Dose: 81 mg Calcium Carbonate (Os-Ryan 500mg -) 1,000 mg PO DAILY [facility] Last Admin: 05/10/19 09:32 Dose: 1,000 mg Collagenase (Santyl -) 1 applic TP DAILY [facility]; Protocol Last Admin: 05/10/19 13:25 Dose: 1 applic Gabapentin (Neurontin -) 600 mg PO TID [facility] Last Admin: 05/10/19 13:24 Dose: 600 mg Heparin Sodium (Porcine) (Heparin -) 5,000 unit SQ BID [facility] Last Admin: 05/10/19 09:42 Dose: 5,000 unit Hydroxychloroquine Sulfate (Plaquenil -) 200 mg PO DAILY [facility] Last Admin: 05/10/19 09:32 Dose: 200 mg Vancomycin HCl (Vancomycin (Pre-Docked)) 1,000 mg in 250 mls @ 166.667 mls/hr IVPB Q12H [facility] Aztreonam 1 gm/ Dextrose 50 mls @ 100 mls/hr IVPB Q8H-IV [facility]; Protocol Last Admin: 05/10/19 17:48 Dose: 100 mls/hr Labetalol HCl (Normodyne -) 200 mg PO TID [facility] Last Admin: 05/10/19 13:24 Dose: 200 mg Nifedipine (Procardia Xl -) 60 mg PO BID [facility] Last Admin: 05/10/19 09:33 Dose: 60 mg Pantoprazole Sodium (Protonix -) 40 mg PO DAILY [facility] Last Admin: 05/10/19 09:33 Dose: 40 mg Prednisone (Deltasone -) 5 mg PO DAILY [facility] Last Admin: 05/10/19 09:32 Dose: 5 mg - Objective Vital Signs: Vital Signs Temperature 98.3 F 05/10/19 17:15 Pulse Rate 78 05/10/19 17:15 Respiratory Rate 18 05/10/19 17:15 Blood Pressure 146/59 L 05/10/19 17:15 O2 Sat by Pulse Oximetry (%) 98 05/09/19 21:00 Constitutional: Yes: No Distress HENT: Yes: Atraumatic Neck: Yes: Supple Cardiovascular: Yes: Regular Rate and Rhythm Respiratory: Yes: CTA Bilaterally Gastrointestinal: Yes: Normal Bowel Sounds Extremities: Yes: Other (L foot infection) Neurological: Yes: Alert, Oriented Labs: CBC, BMP 05/06/19 07:30 05/06/19 07:30 Problem List - Problems (1) Cellulitis of foot Code(s): L03.119 - CELLULITIS OF UNSPECIFIED PART OF LIMB (2) PAD (peripheral artery disease) Code(s): I73.9 - PERIPHERAL VASCULAR DISEASE, UNSPECIFIED (3) Peripheral neuropathy Code(s): G62.9 - POLYNEUROPATHY, UNSPECIFIED (4) SLE (systemic lupus erythematosus related syndrome) Code(s): M32.9 - SYSTEMIC LUPUS ERYTHEMATOSUS, UNSPECIFIED (5) Acute on chronic renal failure Code(s): N17.9 - ACUTE KIDNEY FAILURE, UNSPECIFIED; N18.9 - CHRONIC KIDNEY DISEASE, UNSPECIFIED Qualifiers: Acute renal failure type: unspecified Chronic kidney disease stage: unspecified stage Qualified Code(s): N17.9 - Acute kidney failure, unspecified ; N18.9 - Chronic kidney disease, unspecified; N18.9 - Chronic kidney disease, unspecified (6) Anxiety about health Code(s): F41.8 - OTHER SPECIFIED ANXIETY DISORDERS (7) CAD (coronary artery disease) Code(s): I25.10 - ATHSCL HEART DISEASE OF [place] CORONARY ARTERY W/O ANG PCTRS (8) Connective tissue disease Code(s): M35.9 - SYSTEMIC INVOLVEMENT OF CONNECTIVE TISSUE, UNSPECIFIED (9) Foot ulcer, left Assessment/Plan: iv abx wound care Code(s): L97.529 - NON-PRESSURE CHRONIC ULCER OTH PRT LEFT FOOT W UNSP SEVERITY (10) History of DVT (deep vein thrombosis) Code(s): Z86.718 - PERSONAL HISTORY OF OTHER VENOUS THROMBOSIS AND EMBOLISM (11) Osteomyelitis Code(s): M86.9 - OSTEOMYELITIS, UNSPECIFIED Qualifiers: Osteomyelitis type: acute hematogenous Osteomyelitis location: foot Laterality: left Qualified Code(s): M86.072 - Acute hematogenous osteomyelitis , left ankle and foot (12) HTN (hypertension) Code(s): I10 - ESSENTIAL (PRIMARY) HYPERTENSION Qualifiers: Hypertension type: secondary to endocrine disorders Qualified Code(s): I15.2 - Hypertension secondary to endocrine disorders Assessment/Plan covering for dr herbert
--- NOTE | 2019-05-10 21:51 | CONSULT ---
Consult - text type - Consultation Consultation Note: NEUROLOGY CONSULTATION is greatly appreciated: Events reviewed, patient examined. This 73 yo RH woman with long h/o SLE, HTN and PVD is s/p Right AKA in the and multiple stents including B/L Common illiac arteries. Maintained on: Hydroxychloroquine; Nifedipine; predniSONE 5 mg; Feosol 65; Labetalol; Pepcid; Gabapentin; Aspirin 81. Acetaminophen Now admitted for recurrent left foot ulcer over the last year. Many years of chronic left foot and ankle pain described as throbbing, burning and stabbing "like knives" controlled on gabapentin 600 mg TID. Patient describes decreased pain within 45 mins of taking the med and recurrent pain if she misses a dose or if it is delayed. Pains worst at night disrupting sleep. Patient cannot take more gabapentin due to increased tremor ROS sig for throbbing left sided headaches with photophobia over the "last year " currently occurring 2-3/week. TORREY: No bruits. Cor reg. Frontal balding, S/P Right AKA. Left foot bandaged NEURO: MS/Speech: Normal CN II-XII: Normal Motor: No drift. Normal strength including left ankle dorsiflexion. Areflexic left leg. Intermittent, variable tremor but cogwheel rigidity is present and is increased with reinforcement. Decreased APRIL' s. Coord: No FTN dystaxia Sensory: Reduced vibration in foot but position and touch preserved. IMP: Peripheral neuropathy with dysesthetic pain Early Parkinsonism Migraine headaches Probable contribution from RLS (associated with BOTH migraines and PD). SUGGEST: Update Fe++, TIBC and ferritin levels. Continue gabapentine 600 mg PO q 8 hrs Try pramipexole ,25 mg after breakfast and dinner for both pain and tremor. The dose can be gradually increased if necessary and tolerated. Thank you very much, Gelacio Cleveland MD
[2019-05-10] MEDS: PRAMIPEXOLE DIHYDROCHLORIDE 0.125 MG TABLET PO SCH (22:19)
[2019-05-11] MEDS ORDERED: MAG HYDROX/AL HYDROX/SIMETH 30 ML UNIT-DOSE CUP PO ONE (00:52)
--- NOTE | 2019-05-11 00:52 | PN ---
Progress Note (short form) - Note Progress Note: Night nurse called resident overnight for assessment of chest pain Vitals on arrival: HR 73, BP 123/48, 97% sat on RA Patient spoken to and she endorsed epigastric pain radiating midline up the chest. Endorsed nausea and some pain in the back. No radiation to the left or right side of the chest. Denied radiation to the arm. Denied shortness of breath , palpitations, diaphoresis, visual changes, fever, chills, dizziness, lightheadedness. Physical: General: mild anxious, alert and oriented Cardiac: RRR, no murmurs auscultated, tender to palpation in the midline and epigastric area. No tenderness to palpation on the L or R side of the chest. Resp: bilaterally clear to auscultation Abdomen: normoactive bowel sounds, minor tenderness to palpation in epigastric region Plan: Due to hx of vascular disease: Obtain EKG, no new changes on new EKG Troponin negative Maalox given with good effect Noted to avoid H2 blockers in setting of ranitidine allergy
[2019-05-11] MEDS ORDERED: AZTREONAM 1 GM VIAL (RESTRICTED TO ID) ONE ×3 (01:16→16:33)
[2019-05-11] MEDS ORDERED: DEXTROSE 5%-WATER - 50 ML IVPB ONE ×3 (01:16→16:33)
[2019-05-11] MEDS: AZTREONAM 1 GM in DEXTROSE 5%-WATER - 50 ML IVPB SCH ×3 (01:37→17:45)
[2019-05-11] MEDS ORDERED: PT OWN MED DRAWER 7, Y5N ONE ×3 (01:38→21:39)
[2019-05-11] MEDS: PRAMIPEXOLE DIHYDROCHLORIDE 0.125 MG TABLET PO SCH ×4 (06:29→23:02)
[2019-05-11] MEDS: LABETALOL HCL 200 MG TABLET (FP) PO SCH ×3 (06:29→21:44)
[2019-05-11] MEDS: GABAPENTIN 300 MG CAPSULE PO SCH ×3 (06:29→21:44)
[2019-05-11] MEDS: ACETAMINOPHEN 325 MG TABLET (FP) PO PRN ×2 (07:01→21:42)
[2019-05-11] MEDS: PANTOPRAZOLE 40 MG TABLET PO SCH (09:48)
[2019-05-11] MEDS: CALCIUM (OYSTER SHELL) 500 MG TABLET (FP) PO SCH (09:48)
[2019-05-11] MEDS: predniSONE 5 MG TABLET (UD) PO SCH (09:48)
[2019-05-11] MEDS: HYDROXYCHLOROQUINE SO4 200 MG TABLET (FP) PO SCH (09:48)
[2019-05-11] MEDS: HEPARIN NA (PORCINE) 5,000 UNITS/ML 1ML VIAL SQ SCH ×2 (09:48→21:42)
[2019-05-11] MEDS: ASPIRIN 81 MG CHEWABLE TABLETS PO SCH (09:48)
[2019-05-11] MEDS: NIFEdipine E.R 60 MG TABLET PO SCH ×2 (09:49→21:45)
[2019-05-11] MEDS: COLLAGENASE CLOSTRIDIUM HIST. 30 GRAMS TUBE TP SCH (09:49)
--- NOTE | 2019-05-11 11:32 | PN ---
Progress Note, Physician History of Present Illness: says she is not feeling that well chest pain - Current Medication List Current Medications: Active Medications Acetaminophen (Tylenol -) 650 mg PO Q6H PRN PRN Reason: PAIN SCALE 3-10 Last Admin: 05/11/19 07:01 Dose: 650 mg Aspirin (Asa -) 81 mg PO DAILY [facility] Last Admin: 05/11/19 09:48 Dose: 81 mg Calcium Carbonate (Os-Ryan 500mg -) 1,000 mg PO DAILY [facility] Last Admin: 05/11/19 09:48 Dose: 1,000 mg Collagenase (Santyl -) 1 applic TP DAILY [facility]; Protocol Last Admin: 05/11/19 09:49 Dose: 1 applic Gabapentin (Neurontin -) 600 mg PO TID [facility] Last Admin: 05/11/19 06:29 Dose: 600 mg Heparin Sodium (Porcine) (Heparin -) 5,000 unit SQ BID [facility] Last Admin: 05/11/19 09:48 Dose: 5,000 unit Hydroxychloroquine Sulfate (Plaquenil -) 200 mg PO DAILY [facility] Last Admin: 05/11/19 09:48 Dose: 200 mg Aztreonam 1 gm/ Dextrose 50 mls @ 100 mls/hr IVPB Q8H-IV [facility]; Protocol Last Admin: 05/11/19 09:48 Dose: 100 mls/hr Labetalol HCl (Normodyne -) 200 mg PO TID [facility] Last Admin: 05/11/19 06:29 Dose: 200 mg Nifedipine (Procardia Xl -) 60 mg PO BID [facility] Last Admin: 05/11/19 09:49 Dose: 60 mg Pantoprazole Sodium (Protonix -) 40 mg PO DAILY [facility] Last Admin: 05/11/19 09:48 Dose: 40 mg Pramipexole Dihydrochloride (Mirapex -) 0.125 mg PO TID [facility] Last Admin: 05/11/19 06:29 Dose: 0.125 mg Prednisone (Deltasone -) 5 mg PO DAILY [facility] Last Admin: 05/11/19 09:48 Dose: 5 mg - Objective Vital Signs: Vital Signs Temperature 98.5 F 05/11/19 10:00 Pulse Rate 81 05/11/19 10:00 Respiratory Rate 20 05/11/19 10:00 Blood Pressure 142/65 05/11/19 10:00 O2 Sat by Pulse Oximetry (%) 98 05/10/19 23:26 Constitutional: Yes: Calm, Mild Distress Cardiovascular: Yes: S1, S2, Other (chest pain) Respiratory: Yes: Regular, CTA Bilaterally Gastrointestinal: Yes: Normal Bowel Sounds, Soft Musculoskeletal: Yes: WNL Extremities: Yes: WNL Neurological: Yes: Alert, Oriented Psychiatric: Yes: Alert, Oriented Labs: CBC, BMP 05/06/19 07:30 05/06/19 07:30 Assessment/Plan Assessment/Plan Problem List - Problems (1) CAD (coronary artery disease) Code(s): I25.10 - ATHSCL HEART DISEASE OF [place] CORONARY ARTERY W/O ANG PCTRS (2) Connective tissue disease Code(s): M35.9 - SYSTEMIC INVOLVEMENT OF CONNECTIVE TISSUE, UNSPECIFIED (3) Diarrhea Code(s): R19.7 - DIARRHEA, UNSPECIFIED (4) Shingles Code(s): B02.9 - ZOSTER WITHOUT COMPLICATIONS Qualifiers: Herpes zoster complications: unspecified herpes zoster complication Qualified Code(s): B02.8 - Zoster with other complications (5) Fever Code(s): R50.9 - FEVER, UNSPECIFIED Qualifiers: Fever type: unspecified Qualified Code(s): R50.9 - Fever, unspecified (6) PVD (peripheral vascular disease) Code(s): I73.9 - PERIPHERAL VASCULAR DISEASE, UNSPECIFIED (7) Amputated right leg Code(s): Z89.611 - ACQUIRED ABSENCE OF RIGHT LEG ABOVE KNEE (8) HTN (hypertension) Code(s): I10 - ESSENTIAL (PRIMARY) HYPERTENSION Qualifiers: Hypertension type: secondary to endocrine disorders Qualified Code(s): I15.2 - Hypertension secondary to endocrine disorders (9) Lupus (systemic lupus erythematosus) Code(s): M32.9 - SYSTEMIC LUPUS ERYTHEMATOSUS, UNSPECIFIED 10 cellulitis of the leg plan abx continue current mgmt rest as per the team will deescalte tomorrow
--- NOTE | 2019-05-11 12:33 | EKG ---
Test Reason : Blood Pressure : / mmHG Vent. Rate : 077 BPM Atrial Rate : 077 BPM P-R Int : 144 ms QRS Dur : 084 ms QT Int : 382 ms P-R-T Axes : 042 025 052 degrees QTc Int : 432 ms NORMAL SINUS RHYTHM NORMAL ECG WHEN COMPARED WITH ECG OF 05-MAY-2019 15:39, NO SIGNIFICANT CHANGE WAS FOUND Confirmed by MD TERESA, PANCHO ([id number]) on 05/11/2019 12:33:00 PM Referred By: Sandi AREVALO Confirmed By:PANCHO MOORE MD
--- NOTE | 2019-05-11 22:44 | PN ---
Progress Note, Physician History of Present Illness: No new complaints - Current Medication List Current Medications: Active Medications Acetaminophen (Tylenol -) 650 mg PO Q6H PRN PRN Reason: PAIN SCALE 3-10 Last Admin: 05/11/19 21:42 Dose: 650 mg Aspirin (Asa -) 81 mg PO DAILY [facility] Last Admin: 05/11/19 09:48 Dose: 81 mg Calcium Carbonate (Os-Ryan 500mg -) 1,000 mg PO DAILY [facility] Last Admin: 05/11/19 09:48 Dose: 1,000 mg Collagenase (Santyl -) 1 applic TP DAILY [facility]; Protocol Last Admin: 05/11/19 09:49 Dose: 1 applic Gabapentin (Neurontin -) 600 mg PO TID [facility] Last Admin: 05/11/19 21:44 Dose: 600 mg Heparin Sodium (Porcine) (Heparin -) 5,000 unit SQ BID [facility] Last Admin: 05/11/19 21:42 Dose: 5,000 unit Hydroxychloroquine Sulfate (Plaquenil -) 200 mg PO DAILY [facility] Last Admin: 05/11/19 09:48 Dose: 200 mg Aztreonam 1 gm/ Dextrose 50 mls @ 100 mls/hr IVPB Q8H-IV [facility]; Protocol Last Admin: 05/11/19 17:45 Dose: 100 mls/hr Labetalol HCl (Normodyne -) 200 mg PO TID [facility] Last Admin: 05/11/19 21:44 Dose: 200 mg Nifedipine (Procardia Xl -) 60 mg PO BID [facility] Last Admin: 05/11/19 21:45 Dose: 60 mg Pantoprazole Sodium (Protonix -) 40 mg PO DAILY [facility] Last Admin: 05/11/19 09:48 Dose: 40 mg Pramipexole Dihydrochloride (Mirapex -) 0.125 mg PO TID [facility] Last Admin: 05/11/19 13:20 Dose: Not Given Prednisone (Deltasone -) 5 mg PO DAILY [facility] Last Admin: 05/11/19 09:48 Dose: 5 mg - Objective Vital Signs: Vital Signs Temperature 98.2 F 05/11/19 16:30 Pulse Rate 77 05/11/19 16:30 Respiratory Rate 20 05/11/19 16:30 Blood Pressure 153/68 05/11/19 16:30 O2 Sat by Pulse Oximetry (%) 98 05/11/19 09:00 Cardiovascular: Yes: WNL, Regular Rate and Rhythm Respiratory: Yes: WNL, Regular, CTA Bilaterally Gastrointestinal: Yes: WNL, Normal Bowel Sounds, Soft Extremities: Yes: Other (Lt foot ulcer) Edema: LLE: Trace Labs: CBC, BMP 05/06/19 07:30 05/06/19 07:30 Problem List - Problems (1) Foot ulcer, left Assessment/Plan: Cont IV antibxs Xray foot shows arthritic changes Probable change to po antibxs in am Code(s): L97.529 - NON-PRESSURE CHRONIC ULCER OTH PRT LEFT FOOT W UNSP SEVERITY (2) PAD (peripheral artery disease) Assessment/Plan: Vascular consult noted CTA results pending Code(s): I73.9 - PERIPHERAL VASCULAR DISEASE, UNSPECIFIED (3) Cellulitis of foot Assessment/Plan: Cont IV antibxs Probably change to po antibx in am Code(s): L03.119 - CELLULITIS OF UNSPECIFIED PART OF LIMB (4) Anemia Code(s): D64.9 - ANEMIA, UNSPECIFIED Qualifiers: Anemia type: unspecified type Qualified Code(s): D64.9 - Anemia, unspecified (5) HTN (hypertension) Assessment/Plan: BP stable Cont labetalol/asa/procardia Code(s): I10 - ESSENTIAL (PRIMARY) HYPERTENSION Qualifiers: Hypertension type: secondary to endocrine disorders Qualified Code(s): I15.2 - Hypertension secondary to endocrine disorders (6) Peripheral neuropathy Assessment/Plan: Cont gabapentin Neuro consult noted Code(s): G62.9 - POLYNEUROPATHY, UNSPECIFIED (7) SLE (systemic lupus erythematosus related syndrome) Assessment/Plan: Cont plaquenil/prednisone Code(s): M32.9 - SYSTEMIC LUPUS ERYTHEMATOSUS, UNSPECIFIED (8) CAD (coronary artery disease) Code(s): I25.10 - ATHSCL HEART DISEASE OF [place] CORONARY ARTERY W/O ANG PCTRS (9) Hx of AKA (above knee amputation) Code(s): Z89.619 - ACQUIRED ABSENCE OF UNSPECIFIED LEG ABOVE KNEE
[2019-05-12] MEDS ORDERED: AZTREONAM 1 GM VIAL (RESTRICTED TO ID) ONE (01:33)
[2019-05-12] MEDS ORDERED: DEXTROSE 5%-WATER - 50 ML IVPB ONE (01:34)
[2019-05-12] MEDS: AZTREONAM 1 GM in DEXTROSE 5%-WATER - 50 ML IVPB SCH (01:39)
[2019-05-12] MEDS: GABAPENTIN 300 MG CAPSULE PO SCH ×3 (05:55→21:41)
[2019-05-12] MEDS: LABETALOL HCL 200 MG TABLET (FP) PO SCH ×3 (05:55→21:41)
[2019-05-12] MEDS: PRAMIPEXOLE DIHYDROCHLORIDE 0.125 MG TABLET PO SCH (05:55)
--- NOTE | 2019-05-12 08:30 | PN ---
Progress Note, Physician History of Present Illness: stable feels better today leg looks better - Current Medication List Current Medications: Active Medications Acetaminophen (Tylenol -) 650 mg PO Q6H PRN PRN Reason: PAIN SCALE 3-10 Last Admin: 05/11/19 21:42 Dose: 650 mg Aspirin (Asa -) 81 mg PO DAILY [facility] Last Admin: 05/11/19 09:48 Dose: 81 mg Calcium Carbonate (Os-Ryan 500mg -) 1,000 mg PO DAILY [facility] Last Admin: 05/11/19 09:48 Dose: 1,000 mg Collagenase (Santyl -) 1 applic TP DAILY [facility]; Protocol Last Admin: 05/11/19 09:49 Dose: 1 applic Gabapentin (Neurontin -) 600 mg PO TID [facility] Last Admin: 05/12/19 05:55 Dose: 600 mg Heparin Sodium (Porcine) (Heparin -) 5,000 unit SQ BID [facility] Last Admin: 05/11/19 21:42 Dose: 5,000 unit Hydroxychloroquine Sulfate (Plaquenil -) 200 mg PO DAILY [facility] Last Admin: 05/11/19 09:48 Dose: 200 mg Aztreonam 1 gm/ Dextrose 50 mls @ 100 mls/hr IVPB Q8H-IV [facility]; Protocol Last Admin: 05/12/19 01:39 Dose: 100 mls/hr Labetalol HCl (Normodyne -) 200 mg PO TID [facility] Last Admin: 05/12/19 05:55 Dose: 200 mg Nifedipine (Procardia Xl -) 60 mg PO BID [facility] Last Admin: 05/11/19 21:45 Dose: 60 mg Pantoprazole Sodium (Protonix -) 40 mg PO DAILY [facility] Last Admin: 05/11/19 09:48 Dose: 40 mg Pramipexole Dihydrochloride (Mirapex -) 0.125 mg PO TID [facility] Last Admin: 05/12/19 05:55 Dose: Not Given Prednisone (Deltasone -) 5 mg PO DAILY [facility] Last Admin: 05/11/19 09:48 Dose: 5 mg - Objective Vital Signs: Vital Signs Temperature 97.7 F 05/12/19 06:00 Pulse Rate 70 05/12/19 06:00 Respiratory Rate 18 05/12/19 06:00 Blood Pressure 154/61 05/12/19 06:00 O2 Sat by Pulse Oximetry (%) 98 05/11/19 21:00 Constitutional: Yes: No Distress, Calm Cardiovascular: Yes: S1, S2 Respiratory: Yes: Regular, CTA Bilaterally Gastrointestinal: Yes: Normal Bowel Sounds, Soft Musculoskeletal: Yes: WNL Extremities: Yes: Other Neurological: Yes: Alert, Oriented Labs: CBC, BMP 05/06/19 07:30 05/06/19 07:30 Assessment/Plan Assessment/Plan Problem List - Problems (1) CAD (coronary artery disease) Code(s): I25.10 - ATHSCL HEART DISEASE OF [place] CORONARY ARTERY W/O ANG PCTRS (2) Connective tissue disease Code(s): M35.9 - SYSTEMIC INVOLVEMENT OF CONNECTIVE TISSUE, UNSPECIFIED (3) Diarrhea Code(s): R19.7 - DIARRHEA, UNSPECIFIED (4) Shingles Code(s): B02.9 - ZOSTER WITHOUT COMPLICATIONS Qualifiers: Herpes zoster complications: unspecified herpes zoster complication Qualified Code(s): B02.8 - Zoster with other complications (5) Fever Code(s): R50.9 - FEVER, UNSPECIFIED Qualifiers: Fever type: unspecified Qualified Code(s): R50.9 - Fever, unspecified (6) PVD (peripheral vascular disease) Code(s): I73.9 - PERIPHERAL VASCULAR DISEASE, UNSPECIFIED (7) Amputated right leg Code(s): Z89.611 - ACQUIRED ABSENCE OF RIGHT LEG ABOVE KNEE (8) HTN (hypertension) Code(s): I10 - ESSENTIAL (PRIMARY) HYPERTENSION Qualifiers: Hypertension type: secondary to endocrine disorders Qualified Code(s): I15.2 - Hypertension secondary to endocrine disorders (9) Lupus (systemic lupus erythematosus) Code(s): M32.9 - SYSTEMIC LUPUS ERYTHEMATOSUS, UNSPECIFIED 10 cellulitis of the leg plan abx continue current mgmt rest as per the team change abx to doxy podiatry following
[2019-05-12] MEDS ORDERED: PT OWN MED DRAWER 7, Y5N ONE (09:17)
[2019-05-12] MEDS: CALCIUM (OYSTER SHELL) 500 MG TABLET (FP) PO SCH (09:21)
[2019-05-12] MEDS: ASPIRIN 81 MG CHEWABLE TABLETS PO SCH (09:21)
[2019-05-12] MEDS: HYDROXYCHLOROQUINE SO4 200 MG TABLET (FP) PO SCH (09:21)
[2019-05-12] MEDS: predniSONE 5 MG TABLET (UD) PO SCH (09:21)
[2019-05-12] MEDS: PANTOPRAZOLE 40 MG TABLET PO SCH (09:22)
[2019-05-12] MEDS: NIFEdipine E.R 60 MG TABLET PO SCH ×2 (09:22→21:41)
[2019-05-12] MEDS: HEPARIN NA (PORCINE) 5,000 UNITS/ML 1ML VIAL SQ SCH ×3 (09:22→21:42)
[2019-05-12] MEDS: DOXYCYCLINE HYCLATE 100 MG CAPSULE PO SCH ×2 (09:22→17:28)
--- NOTE | 2019-05-12 09:38 | CONSULT ---
Consult - text type - Consultation Consultation Note: NEUROLOGY PROGRESS: Events reviewed. Patient examined. Ms. Trent tried low-dose pramipexole (0,125) x 2. She relates increased sleep but no sig improvement in foot pain during wakefulness. She awoke the first night with chest pain and has refused Rx since. She is content with her regimen of high- dose gabapentin and tylenol. Exam: Variable tremor Jaw tremor with reinforcement Cogwheeling with reinforcement. Decreased APRIL's. Remainder unchanged. IMP: Peripheral neuropathy (vasculytic? ischemic?) with dysesthetic pain Early Parkinsonism Restless Legs Syndrome. Suggest: Continue Gabapentin 800 mg q 8 hrs +/- Tylenol. Thank you very much, Gelacio Cleveland MD
[2019-05-12] MEDS: COLLAGENASE CLOSTRIDIUM HIST. 30 GRAMS TUBE TP SCH (13:57)
[2019-05-12 16:02] VITALS: BMI 26.4
--- NOTE | 2019-05-12 18:56 | PN ---
Progress Note, Physician History of Present Illness: stable - Current Medication List Current Medications: Active Medications Acetaminophen (Tylenol -) 650 mg PO Q6H PRN PRN Reason: PAIN SCALE 3-10 Last Admin: 05/11/19 21:42 Dose: 650 mg Aspirin (Asa -) 81 mg PO DAILY [facility] Last Admin: 05/12/19 09:21 Dose: 81 mg Calcium Carbonate (Os-Ryan 500mg -) 1,000 mg PO DAILY [facility] Last Admin: 05/12/19 09:21 Dose: 1,000 mg Collagenase (Santyl -) 1 applic TP DAILY [facility]; Protocol Last Admin: 05/12/19 13:57 Dose: Not Given Doxycycline Hyclate (Vibramycin -) 100 mg PO BID@1000,1800 [facility] Last Admin: 05/12/19 17:28 Dose: 100 mg Gabapentin (Neurontin -) 600 mg PO TID [facility] Last Admin: 05/12/19 13:17 Dose: 600 mg Heparin Sodium (Porcine) (Heparin -) 5,000 unit SQ BID [facility] Last Admin: 05/12/19 09:29 Dose: 5,000 unit Hydroxychloroquine Sulfate (Plaquenil -) 200 mg PO DAILY [facility] Last Admin: 05/12/19 09:21 Dose: 200 mg Labetalol HCl (Normodyne -) 200 mg PO TID [facility] Last Admin: 05/12/19 13:17 Dose: 200 mg Nifedipine (Procardia Xl -) 60 mg PO BID [facility] Last Admin: 05/12/19 09:22 Dose: 60 mg Pantoprazole Sodium (Protonix -) 40 mg PO DAILY [facility] Last Admin: 05/12/19 09:22 Dose: 40 mg Prednisone (Deltasone -) 5 mg PO DAILY [facility] Last Admin: 05/12/19 09:21 Dose: 5 mg - Objective Vital Signs: Vital Signs Temperature 98.1 F 05/12/19 17:17 Pulse Rate 76 05/12/19 17:17 Respiratory Rate 18 05/12/19 17:17 Blood Pressure 139/61 05/12/19 17:17 O2 Sat by Pulse Oximetry (%) 98 05/11/19 21:00 Constitutional: Yes: No Distress HENT: Yes: Atraumatic Neck: Yes: Supple Cardiovascular: Yes: Regular Rate and Rhythm Respiratory: Yes: CTA Bilaterally Gastrointestinal: Yes: Normal Bowel Sounds Extremities: Yes: WNL Edema: No Peripheral Pulses WNL: Yes Neurological: Yes: Alert, Oriented Labs: CBC, BMP 05/06/19 07:30 05/06/19 07:30 Problem List - Problems (1) Cellulitis of foot Assessment/Plan: on abx Code(s): L03.119 - CELLULITIS OF UNSPECIFIED PART OF LIMB (2) PAD (peripheral artery disease) Code(s): I73.9 - PERIPHERAL VASCULAR DISEASE, UNSPECIFIED (3) Peripheral neuropathy Code(s): G62.9 - POLYNEUROPATHY, UNSPECIFIED (4) SLE (systemic lupus erythematosus related syndrome) Code(s): M32.9 - SYSTEMIC LUPUS ERYTHEMATOSUS, UNSPECIFIED (5) Acute on chronic renal failure Code(s): N17.9 - ACUTE KIDNEY FAILURE, UNSPECIFIED; N18.9 - CHRONIC KIDNEY DISEASE, UNSPECIFIED Qualifiers: Acute renal failure type: unspecified Chronic kidney disease stage: unspecified stage Qualified Code(s): N17.9 - Acute kidney failure, unspecified ; N18.9 - Chronic kidney disease, unspecified; N18.9 - Chronic kidney disease, unspecified (6) Anxiety about health Code(s): F41.8 - OTHER SPECIFIED ANXIETY DISORDERS (7) CAD (coronary artery disease) Code(s): I25.10 - ATHSCL HEART DISEASE OF [place] CORONARY ARTERY W/O ANG PCTRS (8) Connective tissue disease Code(s): M35.9 - SYSTEMIC INVOLVEMENT OF CONNECTIVE TISSUE, UNSPECIFIED (9) Foot ulcer, left Code(s): L97.529 - NON-PRESSURE CHRONIC ULCER OTH PRT LEFT FOOT W UNSP SEVERITY (10) History of DVT (deep vein thrombosis) Code(s): Z86.718 - PERSONAL HISTORY OF OTHER VENOUS THROMBOSIS AND EMBOLISM (11) Osteomyelitis Code(s): M86.9 - OSTEOMYELITIS, UNSPECIFIED Qualifiers: Osteomyelitis type: acute hematogenous Osteomyelitis location: foot Laterality: left Qualified Code(s): M86.072 - Acute hematogenous osteomyelitis , left ankle and foot (12) HTN (hypertension) Code(s): I10 - ESSENTIAL (PRIMARY) HYPERTENSION Qualifiers: Hypertension type: secondary to endocrine disorders Qualified Code(s): I15.2 - Hypertension secondary to endocrine disorders Assessment/Plan covering for dr herbert continue current meds
[2019-05-12] MEDS: ACETAMINOPHEN 325 MG TABLET (FP) PO PRN (21:41)
[2019-05-13] MEDS: GABAPENTIN 300 MG CAPSULE PO SCH ×2 (06:17→13:29)
[2019-05-13] MEDS: LABETALOL HCL 200 MG TABLET (FP) PO SCH ×2 (06:17→13:29)
[2019-05-13] MEDS ORDERED: PT OWN MED DRAWER 7, Y5N ONE (06:45)
[2019-05-13] MEDS: CALCIUM (OYSTER SHELL) 500 MG TABLET (FP) PO SCH (09:51)
[2019-05-13] MEDS: NIFEdipine E.R 60 MG TABLET PO SCH (09:51)
[2019-05-13] MEDS: predniSONE 5 MG TABLET (UD) PO SCH (09:51)
[2019-05-13] MEDS: DOXYCYCLINE HYCLATE 100 MG CAPSULE PO SCH (09:51)
[2019-05-13] MEDS: PANTOPRAZOLE 40 MG TABLET PO SCH (09:51)
[2019-05-13] MEDS: HYDROXYCHLOROQUINE SO4 200 MG TABLET (FP) PO SCH (09:51)
[2019-05-13] MEDS: ASPIRIN 81 MG CHEWABLE TABLETS PO SCH (09:51)
[2019-05-13] MEDS: COLLAGENASE CLOSTRIDIUM HIST. 30 GRAMS TUBE TP SCH (09:54)
[2019-05-13] MEDS: ACETAMINOPHEN 325 MG TABLET (FP) PO PRN (10:47)
--- NOTE | 2019-05-13 12:11 | PN ---
Progress Note, Physician - Current Medication List Current Medications: Active Medications Acetaminophen (Tylenol -) 650 mg PO Q6H PRN PRN Reason: PAIN SCALE 3-10 Last Admin: 05/13/19 10:47 Dose: 650 mg Aspirin (Asa -) 81 mg PO DAILY [facility] Last Admin: 05/13/19 09:51 Dose: 81 mg Calcium Carbonate (Os-Ryan 500mg -) 1,000 mg PO DAILY [facility] Last Admin: 05/13/19 09:51 Dose: 1,000 mg Collagenase (Santyl -) 1 applic TP DAILY [facility]; Protocol Last Admin: 05/13/19 09:54 Dose: Not Given Doxycycline Hyclate (Vibramycin -) 100 mg PO BID@1000,1800 [facility] Last Admin: 05/13/19 09:51 Dose: 100 mg Gabapentin (Neurontin -) 600 mg PO TID [facility] Last Admin: 05/13/19 06:17 Dose: 600 mg Hydroxychloroquine Sulfate (Plaquenil -) 200 mg PO DAILY [facility] Last Admin: 05/13/19 09:51 Dose: 200 mg Labetalol HCl (Normodyne -) 200 mg PO TID [facility] Last Admin: 05/13/19 06:17 Dose: 200 mg Nifedipine (Procardia Xl -) 60 mg PO BID [facility] Last Admin: 05/13/19 09:51 Dose: 60 mg Pantoprazole Sodium (Protonix -) 40 mg PO DAILY [facility] Last Admin: 05/13/19 09:51 Dose: 40 mg Prednisone (Deltasone -) 5 mg PO DAILY [facility] Last Admin: 05/13/19 09:51 Dose: 5 mg - Objective Vital Signs: Vital Signs Temperature 97.8 F 05/13/19 07:47 Pulse Rate 63 05/13/19 07:47 Respiratory Rate 18 05/13/19 07:47 Blood Pressure 146/58 L 05/13/19 07:47 O2 Sat by Pulse Oximetry (%) 96 05/12/19 21:00 Labs: CBC, BMP 05/06/19 07:30 05/06/19 07:30
[2019-05-13 12:20] VITALS: BP 150/59; PULSE 88; TEMP 98.2
--- NOTE | 2019-05-13 13:08 | PN ---
Progress Note (short form) - Note Progress Note: FUV left foot. VSS +stable and improving cellulitis left foot, +improved pain left foot, Cellulitis improving Grade 1-2 wound left Betadine dressing change daily. Moises lock. No surgical procedure indicated at this time. Abx as per ID. Pt to follow up in office.
== END 2019-05-13 15:14 | disposition home health service (06) | DRG 300 ==
LOC: JER 14:26 → SUPCPDRO 14:26 → JERBED 18:15 → J8W 05-06 00:14
PROVIDERS: ADMIT Internal Medicine; ATTEND Internal Medicine
DX: E11.51 Type 2 diabetes mellitus with diabetic peripheral angiopathy without gangrene (principal); L97.528 Non-pressure chronic ulcer of other part of left foot with other specified severity; L03.116 Cellulitis of left lower limb; E11.42 Type 2 diabetes mellitus with diabetic polyneuropathy; I25.10 Atherosclerotic heart disease of native coronary artery without angina pectoris; I15.2 Hypertension secondary to endocrine disorders; M32.9 Systemic lupus erythematosus, unspecified; I10 Essential (primary) hypertension; E78.5 Hyperlipidemia, unspecified; D64.9 Anemia, unspecified; G20 Parkinson's disease; K21.9 Gastro-esophageal reflux disease without esophagitis; G25.81 Restless legs syndrome; G43.909 Migraine, unspecified, not intractable, without status migrainosus; F41.8 Other specified anxiety disorders; I70.202 Unspecified atherosclerosis of native arteries of extremities, left leg; Z89.511 Acquired absence of right leg below knee; Z86.718 Personal history of other venous thrombosis and embolism; Z88.0 Allergy status to penicillin
CPT/HCPCS: 36415; 71045-TC-FY; 73630-TC-LT; 75635-TC; 80053; 81003; 82550; 84484; 85025; 85651; 86140; 93005; 93010; 93923; 99284-25; J0131; J1644; Q2036; Q9967